=== PATIENT | male | born 1945 | race Caucasian/White ===

== ENCOUNTER 2018-11-18 10:11 | Inpatient (IN) | payer MEDICAID ==
[~2018-11-18] VITALS: Ht 172.7 cm; Wt 67.4 kg
[2018-11-18] VITALS (7 sets, daily range): BP systolic 107–155; BP diastolic 55–70; PULSE 72–87; RESP 18–19; Ht 172.7 cm; Wt 67.4 kg
[~2018-11-18 10:11] MED LIST: ACET500C5 PO; HYDR-3498 PO
[2018-11-18] MEDS ORDERED: AMLO-147 PO (11:27)
[2018-11-18] MEDS ORDERED: FLUT9.9S NASAL (11:28)
[2018-11-18] MEDS ORDERED: ASPI-817 PO (11:28)
[2018-11-18] MEDS ORDERED: CIPR500T4 PO (11:28)
[2018-11-18] MEDS ORDERED: METO25TA4 PO (11:28)
[2018-11-18] MEDS ORDERED: TERA5CAP3 PO (11:29)
[2018-11-18] MEDS ORDERED: HYDR12.58 PO (11:29)
[2018-11-18] MEDS ORDERED: ACET-141 PO (11:29)
[2018-11-18] MEDS ORDERED: MIRA50TA PO (11:30)
[2018-11-18] MEDS ORDERED: ESOM40CA PO (11:30)
[2018-11-18] MEDS ORDERED: LISI10TA2 PO (11:30)
[2018-11-18] MEDS ORDERED: ASPIRIN 81 MG TAB PO STA (11:42)
[2018-11-18] MEDS ORDERED: NITROGLYCERIN 2% 1 GM OINT PKT TD STA (11:42)
[2018-11-18] MEDS ORDERED: ONDANSETRON 4 MG INJ IV PRN (12:00)
[2018-11-18] MEDS ORDERED: ACETAMINOPHEN 325 MG TAB PO PRN (12:00)
[2018-11-18] MEDS ORDERED: NITROGLYCERIN (SL) 0.4 MG TAB SL PRN ×2 (12:00→15:00)
--- NOTE | 2018-11-18 13:47 | ERD ---
ER Documentation Chief Complaint Chief Complaint ABD PAIN, FEVER, SOB, WEAKNESS HPI Patient is a 72-year-old male with hypertension and prostate issues who presents with abdominal pain and chest pain. An Hebrew product tester fiberglass was used for the entire history and physical exam. The patient was brought in by ambulance. He complains of abdominal pain for the past 3 days. He also has chest pain and shortness of breath which has gotten worse. He gets short of breath with walking up stairs. He has nausea and pelvic pain. He has had fevers over the past 4-5 days per the . He has had frequency and pain with urination. Upon review of old medical records the patient one previous visit to the ER in 2015. He does have a primary doctor. ROS All systems reviewed and are negative except as per history of present illness. Medications Home Meds Reported Medications Mirabegron (Myrbetriq) 50 Mg Tab.er.24h, 25 MG PO DAILY, TAB 11/18/18 Lisinopril* (Lisinopril*) 10 Mg Tablet, 10 MG PO BID, #30 TAB 11/18/18 Esomeprazole Mag Trihydrate (Nexium) 40 Mg Capsule.dr, 40 MG PO DAILY, #30 CAP 11/18/18 Acetaminophen* (Acetaminophen*) 500 MG Extra Strength Tablet, 1000 MG PO Q6H PRN for PAIN AND OR ELEVATED TEMP, TAB 11/18/18 Terazosin Hcl* (Terazosin Hcl*) 5 Mg Capsule, 5 MG PO HS, CAP 11/18/18 Hydrochlorothiazide* (Hydrochlorothiazide*) 12.5 Mg Tablet, 12.5 MG PO DAILY, #3 0 TAB 11/18/18 Fluticasone Propionate (Flonase Allergy Relief) 9.9 Ml [place].susp, 1 SPRAY NASAL DAILY, #1 BOTTLE TO EACH NOSTRIL 11/18/18 Metoprolol Tartrate* (Lopressor*) 25 Mg Tablet, 25 MG PO BID, #60 TAB 11/18/18 Aspirin* (Aspirin* EC) 81 Mg Tablet.dr, 81 MG PO DAILY, TAB 11/18/18 Ciprofloxacin Hcl* (Ciprofloxacin Hcl*) 500 Mg Tablet, 500 MG PO BID, #14 TAB 11/18/18 Amlodipine Besylate* (Amlodipine Besylate*) 10 Mg Tablet, 10 MG PO DAILY, #30 TAB 11/18/18 Discontinued Scripts Hydrocodone Bit-Acetaminophen* ([place]*) 5-325 Mg Tab, 1 TAB PO DAILY PRN for PAIN, #5 TAB Prov:JOHANNANEAL CALZADA 08/21/15 Acetaminophen* (Tylophen*) 500 Mg Capsule, 500 MG PO Q6H PRN for PAIN, #30 TAB 0 Refills Prov:JOHANNANEAL ZHENG 08/21/15 Allergies Allergies: Coded Allergies: No Known Allergy (Unverified , 08/21/15) PMhx/Soc Medical and Surgical Hx: pt denies Surgical Hx History of Surgery: No Anesthesia Reaction: No Hx Neurological Disorder: No Hx Respiratory Disorders: No Hx Cardiac Disorders: Yes (HTN) Hx Psychiatric Problems: No Hx Miscellaneous Medical Probl: Yes (ENLARGED PROSTATE) Hx Alcohol Use: Yes (OOC) Hx Substance Use: No Hx Tobacco Use: No Smoking Status: Never smoker FmHx Family History: No diabetes Physical Exam Vitals Vital Signs Date Temp Pulse Resp B/P (MAP) Pulse Ox O2 O2 Flow FiO2 Time Delivery Rate 11/18/18 98.7 88 17 148/74 100 10:22 (98) Physical Exam Const: No acute distress Head: Atraumatic Eyes: Normal Conjunctiva ENT: Normal External Ears, Nose and Mouth. Neck: Full range of motion. No meningismus. Resp: Clear to auscultation bilaterally Cardio: Regular rate and rhythm, no murmurs Abd: Soft, fullness over the bladder with tenderness to palpation Skin: No petechiae or rashes Back: No midline or flank tenderness Ext: No cyanosis, or edema Neur: Awake and alert Psych: Normal Mood and Affect Result Diagram: 11/18/18 1025 11/18/18 1025 Results 24 hrs Laboratory Tests Test 11/18/18 10:25 11/18/18 10:50 11/18/18 11:10 White Blood Count 6.6 10^3/ul Red Blood Count 3.29 10^6/ul Hemoglobin 10.1 g/dl Hematocrit 31.3 % Mean Corpuscular Volume 95.1 fl Mean Corpuscular Hemoglobin 30.7 pg Mean Corpuscular 32.3 g/dl Hemoglobin Concent Red Cell Distribution Width 13.5 % Platelet Count 197 10^3/UL Mean Platelet Volume 11.0 fl Immature Granulocytes % 0.300 % Neutrophils % 74.1 % Lymphocytes % 14.8 % Monocytes % 10.4 % Eosinophils % 0.2 % Basophils % 0.2 % Nucleated Red Blood Cells % 0.0 /100WBC Immature Granulocytes # 0.020 10^3/ul Neutrophils # 4.9 10^3/ul Lymphocytes # 1.0 10^3/ul Monocytes # 0.7 10^3/ul Eosinophils # 0.0 10^3/ul Basophils # 0.0 10^3/ul Nucleated Red Blood Cells # 0.0 10^3/ul Prothrombin Time 14.7 Sec Prothrombin Time Ratio 1.1 INR International 1.14 Normalized Ratio Activated Partial Thromboplast 36.8 Sec Time Sodium Level 139 mmol/L Potassium Level 4.5 mmol/L Chloride Level 101 mmol/L Carbon Dioxide Level 27 mmol/L Anion Gap 11 Blood Urea Nitrogen 20 mg/dl Creatinine 0.93 mg/dl Est Glomerular Filtrat mL/min Rate mL/min Glucose Level 134 mg/dl Calcium Level 9.4 mg/dl Total Bilirubin 0.3 mg/dl Direct Bilirubin 0.00 mg/dl Indirect Bilirubin 0.3 mg/dl Aspartate Amino Transf (AST/SGOT) 23 IU/L Alanine 15 IU/L Aminotransferase (ALT/SGPT) Alkaline Phosphatase 103 IU/L Troponin I 0.037 ng/ml Total Protein 8.2 g/dl Albumin 4.3 g/dl Globulin 3.90 g/dl Albumin/Globulin Ratio 1.10 POC Venous Lactate 1.7 mmol/L Urine Color YELLOW Urine Clarity CLEAR Urine pH 6.0 Urine Specific [place] 1.013 Urine Ketones TRACE mg/dL Urine Nitrite NEGATIVE mg/dL Urine Bilirubin NEGATIVE mg/dL Urine Urobilinogen NEGATIVE mg/dL Urine Leukocyte Esterase NEGATIVE Darrell/ul Urine Microscopic RBC 14 /HPF Urine Microscopic WBC 0 /HPF Urine Hemoglobin 2+ mg/dL Urine Glucose NEGATIVE mg/dL Urine Total Protein NEGATIVE mg/dl Current Medications Medications Dose Sig/Neeru Start Time Status Last (Trade) Ordered Route PRN Stop Time Admin Dose Reason Admin Aspirin 162 mg ONCE STAT 11/18/18 DC 11/18/18 (Aspirin) PO 11:42 11/18/18 11:56 11:43 1 inch ONCE STAT 11/18/18 DC 11/18/18 Nitroglycerin TD 11:42 11/18/18 11:56 11:43 (Nitroglyceri n 2% Oint) Procedures/MDM EKG read by me: Rate/Rhythm: Regular rate and rhythm at a normal rate Intervals: Normal Impression: No evidence of ischemia or arrhythmia Chest x-ray read by radiology. Patient is a 72-year-old male who presents with chest pain, shortness of breath, and abdominal pain. I doubt sepsis at this time. I see no sign of infection. I am concerned for possible acute coronary syndrome given his chest pain and shortness of breath. I doubt pneumonia, pneumothorax, or pulmonary embolism. The patient will be admitted to the care of the panel team to a telemetry bed. Departure Diagnosis: Primary Impression: Chest pain Chest pain type: unspecified Qualified Codes: R07.9 - Chest pain, unspecified Condition: BECKY Weeks MD Nov 18, 2018 13:47
--- NOTE | 2018-11-18 14:31 | HP ---
Date/Time of Note Date/Time of Note DATE: 11/18/18 TIME: 14:31 Assessment/Plan VTE Prophylaxis Pharmacological prophylaxis: NA/contraindicated Pharm contraindication: other (Anemia) Lines/Catheters IV Catheter Type (from [facility]): Saline Lock Urinary Cath still in place: No Assessment/Plan Hospital Course 72-year-old male with comorbidities including hypertension, prostate hyperplasia, sciatica, and anemia who came to the emergency room with chief complaint of dyspnea on exertion that has been progressively getting worse and subjective fevers, who will be admitted to inpatient setting for further treatment and evaluation. 1. Dyspnea on exertion. -Etiology unclear. -Differentials include secondary to underlying anemia versus underlying CHF versus others. -Obtain 2D echocardiogram to evaluate left ventricular ejection fraction. -Obtain cardiology consult. -Obtain stool for OB to evaluate for any occult bleeding. -Obtain serial troponins to evaluate for any underlying ACS. 2. Cardiomegaly with pulmonary vascular congestion. -Possible underlying congestive heart failure. -Obtain 2D echocardiogram to evaluate left ventricular ejection fraction. -Cardiology consult. -Diuresis. 3. Reported dysuria and frequency. -Most probably secondary to underlying prostate hyperplasia. -Continue terazosin. -Add tamsulosin. -Obtain urine studies. -Obtain PSA. Less likely infectious process since the patient remains afebrile and there is no leukocytosis. 4. Essential hypertension. -Resume antihypertensives. 5. Normocytic normochromic anemia. -Etiology unclear. -Obtain stool for OB. -Obtain an iron panel. -Monitor H and H closely. Plan: The patient will be admitted to inpatient telemetry floor. The patient will be started on a low-cholesterol diet. The patient will be started on DVT prophylaxis with bilateral SCDs . The patient will remain a full code. Activities will be as tolerated. The rest of the patient's management will be based on the clinical course, inputs from consultants, and the results of diagnostic studies. Based on the patient's clinical presentation, he most probably requires at least 1 midnight's stay for further management and evaluation of his clinical present ation. The patient was seen in collaboration with Dr. Spivey. Result Diagram: 11/18/18 1025 11/18/18 1025 Results 24hrs Laboratory Tests Test 11/18/18 10:25 11/18/18 10:50 11/18/18 11:10 White Blood Count 6.6 Red Blood Count 3.29 L Hemoglobin 10.1 L Hematocrit 31.3 L Mean Corpuscular Volume 95.1 Mean Corpuscular Hemoglobin 30.7 Mean Corpuscular Hemoglobin Concent 32.3 Red Cell Distribution Width 13.5 Platelet Count 197 Mean Platelet Volume 11.0 H Immature Granulocytes % 0.300 Neutrophils % 74.1 Lymphocytes % 14.8 L Monocytes % 10.4 Eosinophils % 0.2 Basophils % 0.2 Nucleated Red Blood Cells % 0.0 Immature Granulocytes # 0.020 Neutrophils # 4.9 Lymphocytes # 1.0 Monocytes # 0.7 Eosinophils # 0.0 Basophils # 0.0 Nucleated Red Blood Cells # 0.0 Prothrombin Time 14.7 Prothrombin Time Ratio 1.1 INR International Normalized Ratio 1.14 Activated Partial Thromboplast Time 36.8 H Sodium Level 139 Potassium Level 4.5 Chloride Level 101 Carbon Dioxide Level 27 Anion Gap 11 Blood Urea Nitrogen 20 Creatinine 0.93 Est Glomerular Filtrat Rate mL/min Glucose Level 134 Hemoglobin A1c 5.8 Calcium Level 9.4 Total Bilirubin 0.3 Direct Bilirubin 0.00 Indirect Bilirubin 0.3 Aspartate Amino Transf (AST/SGOT) 23 Alanine Aminotransferase (ALT/SGPT) 15 Alkaline Phosphatase 103 Troponin I 0.037 B-Type Natriuretic Peptide 405 H Total Protein 8.2 H Albumin 4.3 Globulin 3.90 H Albumin/Globulin Ratio 1.10 Prostate Specific Antigen Pending POC Venous Lactate 1.7 Urine Color YELLOW Urine Clarity CLEAR Urine pH 6.0 Urine Specific [place] 1.013 Urine Ketones TRACE A Urine Nitrite NEGATIVE Urine Bilirubin NEGATIVE Urine Urobilinogen NEGATIVE Urine Leukocyte Esterase NEGATIVE Urine Microscopic RBC 14 H Urine Microscopic WBC 0 Urine Hemoglobin 2+ H Urine Glucose NEGATIVE Urine Total Protein NEGATIVE HPI/ROS Admit Date/Time Admit Date/Time Nov 18, 2018 at 11:47 Hx of Present Illness Reason for admission: Dyspnea on exertion, urinary frequency, urgency, pain in the inguinal area. Consultants 1. Karthik Lizarraga MD, Cardiology. This is a 72-year-old male with past medical history of hypertension, prostate hypertrophy, sciatica, and anemia who came to the emergency room with multiple complaints. The patient verbalized that he has been having progressive worsening of dyspnea on exertion. The patient also feels chest tightness/pain with dyspnea. The patient was complaining of nausea. He denied any vomiting or diaphoresis. He denied any dizziness. The patient also verbalized increased urinary frequency and urgency with pain in bilateral groins and subjective fevers. In the emergency room, the patient was afebrile. The patient's WBC was within normal limits. The patient was noticed to have normocytic, normochromic anemia. The patient's chest x-ray was showing cardiomegaly with pulmonary vascular congestion. The patient was treated with IV Zofran, nitroglycerin transdermal, and a single dose of aspirin in the emergency room. The patient also had a Galvez catheter inserted in the emergency room. The patient's urinalysis was showing 2+ hemoglobin and microscopic RBC of 14 with negative leukocyte esterase and negative nitrate. ROS Constitutional: fatigue Eyes: no complaints ENT: no complaints Respiratory: shortness of breath Cardiovascular: chest pain, palpitations Gastrointestinal: no complaints Genitourinary: dysuria, other (Frequency) Musculoskeletal: no complaints Skin: no complaints Neurologic: no complaints Endocrine: no complaints Lymphatic: no complaints Psychological: no complaints Immunologic: no complaints PMH/Family/Social Past Medical History 1. Hypertension. 2. Prostate hyperplasia. 3. Sciatica. 4. Anemia. Medications Current Medications Nitroglycerin (Nitroglycerin (Sl Tab) 0.4 Mg) 1 tab Q5M UP TO 3 DOSES PRN SL .CHEST PAIN; Start 11/18/18 at 12:00 Ondansetron HCl (Zofran Inj) 4 mg ER BRIDGE PRN IV NAUSEA/VOMITING; Start 11/18/18 at 12:00; Stop 11/19/18 at 11:59 Acetaminophen (Tylenol Tab) 650 mg ER BRIDGE PRN PO .MILD PAIN 1-3 OR TEMP; Start 11/18/18 at 12:00; Stop 11/19/18 at 11:59 Coded Allergies: No Known Allergy (Unverified , 08/21/15) Past Surgical History 1. Left thumb traumatic amputation. Past Surgical Hx: no surgical history Family History Significant Family History: other (Stroke) Social History Lives at home with family. Alcohol Use: none Smoking Status: Former smoker Drug Use: none Exam/Review of Systems Vital Signs Vitals Vital Signs Date Temp Pulse Resp B/P (MAP) Pulse Ox O2 O2 Flow FiO2 Time Delivery Rate 11/18/18 77 14:14 11/18/18 98.0 18 143/65 97 Nasal 14:03 (91) Cannula Exam Exam General: Adequately build 72 year-old male lying in bed in no apparent distress. HEENT: Normocephalic, atraumatic. Eyes: Anicteric sclerae, conjunctivae clear. ENT: Nasal septum midline, oral mucosa moist. Neck supple, JVD noticed. Respiratory: Bilaterally diminished breath sounds. No use of accessory muscles of respiration. Bibasilar rales. Cardiovascular: S1, S2 heard. Grade 3/6 systolic ejection murmur Abdomen: Soft, nontender, and nondistended. Bowel sounds positive in all 4 quadrants. Genitourinary: The patient has a Galvez catheter in place. Extremities: No cyanosis, no clubbing, no edema. Peripheral pulses palpable. Neurologic: Cranial nerves II through XII grossly intact. The patient is awake, alert, and oriented. Skin: Normal skin turgor. No skin rashes. Additional Comments CXR IMPRESSION: Mild cardiomegaly with pulmonary vascular congestion. 12 Lead EKG RBBB. BEBE ABBASI NP Nov 18, 2018 14:31
[2018-11-18] MEDS ORDERED: NACL 0.9% 3 ML SYG IV SCH (15:00)
[2018-11-18] MEDS: ACETAMINOPHEN 325 MG TAB PO PRN (16:04)
[2018-11-18] MEDS ORDERED: FUROSEMIDE 20 MG INJ IV ONE (16:30)
[2018-11-18] MEDS: FUROSEMIDE 20 MG INJ IV SCH (17:17)
--- NOTE | 2018-11-18 17:35 | NUR ---
Nurses notes: 172 Received a from lab regarding abnormal lab troponin 0.[address] Lizarraga's office and s/w Sarita and stated she'll page Dr Lizarraga. 1734 Dr Lizarraga called back and relayed troponin 0.489 and asked when's the next draw and stated ok to call him if it's abnormal and change the draw at [phone] to morning . Changed troponin draw at 0700.
--- NOTE | 2018-11-18 18:50 | RADRPT ---
Echocardiogram Report [id number] : 1945 ([id number] )Study Date: 11/18/2018 2:54:50 PM Gender: Dainaion #: [id number] Tech: [facility] Location: [facility]- Ref.Physician: BEBE ABBASI Height(Cm): BSA: Weight(Kg): Quality: AdequateAccount #: Procedures: Echocardiographic Report: Transthoracic echocardiogram with complete 2D, M-Mode, and doppler examination. Indications: Chest Pain. Measurements: 2D/M Mode Doppler Measurement Value Normal Range Measurement Value Normal Range LVIDd 2D 5.0 [ 4.2 - 5.8 ] cm CHRISTOPHER VTI 1.5 [ 2.0 - 4.0 ] cm2 LVIDs 2D 3.5 [ 2.5 - 4.0 ] cm AV Mean Severo 2.0 [ 70.0 - 90.0 ] cm/sec LVPWd 2D 0.8 [ 0.6 - 1.0 ] cm AV Mean PG 18.0 [ 2.0 - 4.0 ] mmHg IVSd 2D 1.2 [ 0.6 - 1.0 ] cm AV VTI 66.0 cm AoR Diam 2D 2.6 [ 2.6 - 3.4 ] cm LVOT Mean Severo 0.9 [ 60.0 - 80.0 ] cm/sec EDV 2D 120.0 [ 62.0 - 150.0 ] ml LVOT Mean PG 4.0 [ 1.0 - 3.0 ] mmHg ESV 2D 50.2 [ 21.0 - 61.0 ] ml LVOT Peak Severo 1.3 [ 70.0 - 110.0 ] cm/sec EF 2D 58.2 [ 52.0 - 72.0 ] percent LVOT Peak PG 7.0 [ 2.0 - 6.0 ] mmHg LA Dimen 2D 3.8 [ 3.0 - 4.0 ] cm LVOT VTI 30.9 [ 20.0 - 30.0 ] cm LVOT Diam 2.0 [ 2.3 - 2.9 ] cm MV E Peak Severo 0.8 [ 60.0 - 130.0 ] cm/sec MV A Peak Severo 1.0 [ 100.0 - 120.0 ] cm/sec MV E/A 0.8 [ 0.8 - 1.5 ] ratio MV Decel Time 201 [ 104 - 258 ] msec Lat E` Severo 0.1 [ 10.0 - 15.0 ] cm/sec Lateral E/E` 9.1 [ 1.0 - 2.0 ] ratio Med E` Severo 0.1 cm/sec MV E/A 0.8 [ 0.8 - 1.5 ] ratio TR Peak Severo 2.8 [ 100.0 - 280.0 ] cm/sec TR Peak PG 31.0 mmHg RVSP 34.0 [ 10.0 - 36.0 ] mmHg Findings: Left Ventricle: Normal left ventricular systolic function. Normal left ventricular cavity size. Sigmoid septum. Moderate left ventricular systolic dysfunction. Ejection fraction is visually estimated at 35-40 %. Tissue Doppler/Mitral Doppler indices are consistent with impaired relaxation (Stage I diastolic dysfunction). These segments of the LV are hypokinetic mid anterior segment, inferoseptum mid segment, apex and apical septum. Right Ventricle: Normal right ventricular size. Normal right ventricular systolic function. Left Atrium: The left atrium is normal in size. Right Atrium: The right atrium is normal in size. Mitral Valve: Mild mitral leaflet calcification. Mild mitral annular calcification. Mild mitral valve regurgitation. Aortic Valve: Mild to moderate aortic stenosis. Aortic valve Max velocity 2.77 m/sec. Max PG 2.01 mmHg. Mean PG 18.00 mmHg. Aortic valve area 1.41 cm2. Aortic cusps appear moderately calcified. Tricuspid Valve: Normal appearance of the tricuspid valve. Estimated peak PA systolic pressure 34 mmHg. There is mild tricuspid regurgitation. Pulmonic Valve: Pulmonic valve not well visualized. There is trace pulmonic regurgitation. Pericardium: Normal pericardium with no significant pericardial effusion. Aorta: Normal aortic root. IVC: Normal size and normal respiratory collapse consistent with normal right atrial pressure. Conclusions: Normal left ventricular systolic function. Normal left ventricular cavity size. Sigmoid septum. Moderate left ventricular systolic dysfunction. Ejection fraction is visually estimated at 35-40 %. Tissue Doppler/Mitral Doppler indices are consistent with impaired relaxation (Stage I diastolic dysfunction). These segments of the LV are hypokinetic mid anterior segment, inferoseptum mid segment, apex and apical septum. Mild mitral leaflet calcification. Mild mitral annular calcification. Mild mitral valve regurgitation. Mild to moderate aortic stenosis. Aortic valve Max velocity 2.77 m/sec. Max PG 2.01 mmHg. Mean PG 18.00 mmHg. Aortic valve area 1.41 cm2. Aortic cusps appear moderately calcified. Normal appearance of the tricuspid valve. Estimated peak PA systolic pressure 34 mmHg. There is mild tricuspid regurgitation. Pulmonic valve not well visualized. There is trace pulmonic regurgitation. Electronically Signed By: Karthik Lizarraga 2018-11-18 18:49:20 PST
--- NOTE | 2018-11-18 19:04 | CONS ---
DATE OF ADMISSION: 11/18/2018 DATE OF CONSULTATION: 11/18/2018 REASON FOR CONSULTATION: Dyspnea on exertion. REQUESTING PHYSICIAN: Marcello Moreno from the hospitalist service. HISTORY OF PRESENT ILLNESS: Mr. Lockhart is a 72-year-old male with a history of hypertension, BPH, anemia who presents with complaints of dyspnea on exertion. Per chart biopsy says chest pain too, but the patient denies any chest pain. The patient states that he has been having dyspnea on exertion for the past 6 months with walking across the room, slowly getting worse. Upon arrival in the emergency department, temperature 98.7, blood pressure 148/74, pulse 88, respiratory rate 17, sat 100%. The patient's labs revealed a white count 6.6, hemoglobin 10.1, platelet count 197. Sodium of 139, potassium 4.5, creatinine 0.9, BUN of 20. BNP of 405. TSH of 1.43. PSA of 361, INR 1.1. UA negative. The patient underwent a chest x-ray revealing mild cardiomegaly with pulmonary vascular congestion. The patient's electrocardiogram revealed a sinus rhythm, rate of 86 with incomplete right bundle branch block, septal Q's, lateral T-wave inversion. The patient subsequently admitted to the floor and since admit to the floor, denies chest pain. The patient has been started on beta-dana, GÓMEZ inhibitor, yet to receive calcium dana with elevated systolic blood pressures in the 150s most recently. PAST MEDICAL HISTORY: As above in HPI. MEDICATIONS CURRENTLY IN HOSPITAL: 1. Aspirin 81 mg daily. 2. Norvasc 10 mg daily. 3. Lisinopril 10 mg p.o. b.i.d. 4. Metoprolol 25 mg p.o. b.i.d. 5. Hytrin 5 mg at bedtime. 6. Flomax 0.4 mg p.o. b.i.d. 7. Celexa p.r.n. 8. Tylenol p.r.n. ALLERGIES: NO KNOWN DRUG ALLERGIES. SOCIAL HISTORY: Remote tobacco, quit x5 years. Social ETOH. No illicit drug use. FAMILY HISTORY: No sudden cardiac or early CAD. REVIEW OF SYSTEMS: As above in HPI. CONSTITUTIONAL: No fevers, chills. PULMONARY: Dyspnea on exertion. CARDIOVASCULAR: No current chest pain. GASTROINTESTINAL: No vomiting. GENITOURINARY: No hematuria. MUSCULOSKELETAL: Degenerative joint disease. PSYCHIATRIC: No documented psych history. NEUROLOGIC: No documented history of CVA. ENDOCRINE: No documented history of diabetes mellitus. PHYSICAL EXAMINATION: VITAL SIGNS: Temperature 98.1, blood pressure most recently 165/70, pulse 85, respirations 19, and sat 95%. GENERAL: The patient is alert, awake, in no acute distress. NECK: JVP approximately 8 to 9 cm of water. CHEST: Fair movement throughout with mild decreased breath sounds bilaterally. HEART: Regular rate and rhythm. Normal S1, S2, I/ systolic murmur. ABDOMEN: Positive bowel sounds, soft. EXTREMITIES: No significant pitting edema, 1+ pulses bilateral posterior tibial. LABORATORY DATA: Most recently from today, TSH of 1.43. IMAGING STUDIES: As above in HPI. No further imaging studies for my review at this time. ECG: As above in HPI. No further electrocardiograms for my review at this time. IMPRESSION: 1. Dyspnea on exertion with elevated BNP. Assess for congestive heart failure. 2. Congestive heart failure by chest x-ray. 3. Abnormal electrocardiogram, assess for acute coronary syndrome. 4. Elevated PSA, severely. 5. Anemia. 6. Benign prostatic hypertrophy. 7. Hypertension, uncontrolled. RECOMMENDATIONS: 1. At this time would maintain patient on telemetry monitoring to follow rhythm and rate control closely. 2. Would complete the patient's rule out for myocardial infarction to ensure this patient's constellation of symptoms are not the result of an acute coronary syndrome versus acute myocardial infarction. 3. Check a 2D echo for this patient's ejection fraction, wall motion and any major valve abnormalities. 4. Continue the patient's baseline antihypertensives with Norvasc, Zestril, metoprolol and follow up blood pressure after receiving all these. 5. Will give patient gentle Lasix diuresis, following strict I's and O's to grade diuresis closely. 6. Check a fasting lipid panel for general risk stratification and initiate lipid medication as necessary. 7. Continue the patient's aspirin prophylaxis against cardiovascular events. Thank you for allowing me to take part in the care of this patient. I will continue to follow very closely with you with recommendations to be made as the patient progresses through his inpatient hospital clinical course. Dictated By: NEFTALI JACKSON/ZAY Conf#: [id number] DID#: [id number] CC: MARCELLO MORENO [employer] WORK[employer] APPRENTICE;*EndCC* MTDD
--- NOTE | 2018-11-18 19:29 | CONS ---
Assessment/Plan Assessment/Plan Hospital Course (Demo Recall) 72-year-old male presented to the emergency room with abdominal pain and chest pain. He also was complaining of urinary frequency and urgency. He had a PSA done and that came back elevated 361. Therefore a urological consultation was requested Patient states that he has been having nocturia 5-6 times and has urinary urgency. His medical doctor DR Ambrocio had prescribed for him terazosin 5 mg daily and Myrbetriq. Patient has not been evaluated by a urologist before. On the exam the patient does have a hard and large prostate very suspicious for cancer. In addition his PSA was 361 which is very high. We will do CT scan of the abdomen and pelvis without contrast and a bone scan to check for metastasis. Consultation Date/Type/Reason Admit Date/Time Nov 18, 2018 at 11:47 Date of Consultation: Nov 18, 2018 Type of Consult Urology Reason for Consultation Elevated PSA Requesting Provider: UNA BREAUX MD Date/Time of Note DATE: 11/18/18 TIME: 19:20 Hx of Present Illness 72-year-old male presented to the emergency room with abdominal pain and chest pain. He also was complaining of urinary frequency and urgency. He had a PSA done and that came back elevated 361. Therefore a urological consultation was requested Patient states that he has been having nocturia 5-6 times and has urinary urgency. His medical doctor DR Angy Ambrocio had prescribed for him terazosin 5 mg daily and Myrbetriq. Patient has not been evaluated by a urologist before. Constitutional: febrile (As per his statement) Eyes: no complaints ENT: no complaints Respiratory: No wheezing Cardiovascular: chest pain Gastrointestinal: pain Genitourinary: dysuria, other (Urinary frequency and urgency and nocturia) Musculoskeletal: no complaints Skin: no complaints Neurologic: no complaints Endocrine: no complaints Psychological: no complaints Past Medical History Medical History: hypertension, other (Urinary frequency and urgency) Home Meds Reported Medications Mirabegron (Myrbetriq) 50 Mg Tab.er.24h, 25 MG PO DAILY, TAB 11/18/18 Lisinopril* (Lisinopril*) 10 Mg Tablet, 10 MG PO BID, #30 TAB 11/18/18 Esomeprazole Mag Trihydrate (Nexium) 40 Mg Capsule.dr, 40 MG PO DAILY, #30 CAP 11/18/18 Acetaminophen* (Acetaminophen*) 500 MG Extra Strength Tablet, 1000 MG PO Q6H PRN for PAIN AND OR ELEVATED TEMP, TAB 11/18/18 Terazosin Hcl* (Terazosin Hcl*) 5 Mg Capsule, 5 MG PO HS, CAP 11/18/18 Hydrochlorothiazide* (Hydrochlorothiazide*) 12.5 Mg Tablet, 12.5 MG PO DAILY, #30 TAB 11/18/18 Fluticasone Propionate (Flonase Allergy Relief) 9.9 Ml [place].susp, 1 SPRAY NASAL DAILY, #1 BOTTLE TO EACH NOSTRIL 11/18/18 Metoprolol Tartrate* (Lopressor*) 25 Mg Tablet, 25 MG PO BID, #60 TAB 11/18/18 Aspirin* (Aspirin* EC) 81 Mg Tablet.dr, 81 MG PO DAILY, TAB 11/18/18 Ciprofloxacin Hcl* (Ciprofloxacin Hcl*) 500 Mg Tablet, 500 MG PO BID, #14 TAB 11/18/18 Amlodipine Besylate* (Amlodipine Besylate*) 10 Mg Tablet, 10 MG PO DAILY, #30 TAB 11/18/18 Discontinued Scripts Hydrocodone Bit-Acetaminophen* ([place]*) 5-325 Mg Tab, 1 TAB PO DAILY PRN for PAIN, #5 TAB Prov:NEAL SPENCER PA-C 08/21/15 Acetaminophen* (Tylophen*) 500 Mg Capsule, 500 MG PO Q6H PRN for PAIN, #30 TAB 0 Refills Prov:NEAL SPENCER PA-C 08/21/15 Medications Current Medications Nitroglycerin (Nitroglycerin (Sl Tab) 0.4 Mg) 1 tab Q5M UP TO 3 DOSES PRN SL .CHEST PAIN; Start 11/18/18 at 12:00 IV Flush (NS 3 ml) 3 ml PER PROTOCOL IV ; Start 11/18/18 at 15:00 Aspirin (Aspirin) 81 mg DAILY PO ; Start 11/19/18 at 09:00 Nitroglycerin (Nitroglycerin (Sl Tab) 0.4 Mg) 1 tab Q5M PRN SL .CHEST PAIN; Start 11/18/18 at 15:00 Acetaminophen (Tylenol Tab) 650 mg Q6H PRN PO .PAIN 1-3 OR TEMP Last administered on 11/18/18at 16:04; Admin Dose 650 MG; Start 11/18/18 at 15:00 Amlodipine Besylate (Norvasc) 10 mg DAILY PO ; Start 11/19/18 at 09:00 Hydrochlorothiazide (Hydrochlorothiazide) 12.5 mg DAILY@0600 PO ; Start 11/19/18 at 06:00 Lisinopril (Zestril) 10 mg BID PO ; Start 11/18/18 at 21:00 Metoprolol Tartrate (Lopressor) 25 mg BID PO ; Start 11/18/18 at 21:00 Terazosin HCl (Hytrin) 5 mg HS PO ; Start 11/18/18 at 21:00 Influenza Virus Vaccine Quadrival (Fluzone) 0.5 ml ONCE ONCE IM* ; Start 11/19/18 at 09:00; Stop 11/19/18 at 09:01 Tamsulosin HCl (Flomax) 0.4 mg BID PO ; Start 11/18/18 at 21:00 Furosemide (Lasix) 20 mg BID DIURETICS IV Last administered on 11/18/18at 17:17; Admin Dose 20 MG; Start 11/18/18 at 18:00 Allergies: Coded Allergies: No Known Allergy (Unverified , 08/21/15) Past Surgical History Past Surgical Hx: no surgical history Social History Alcohol Use: none Smoking Status: Former smoker Drug Use: none Exam/Review of Systems Exam Vitals Vital Signs Date Temp Pulse Resp B/P (MAP) Pulse Ox O2 O2 Flow FiO2 Time Delivery Rate 11/18/18 82 16:28 11/18/18 98.1 19 155/70 95 15:53 (98) 11/18/18 Nasal 14:03 Cannula Constitutional: alert, oriented Psych: no complaints Head: normocephalic Eyes: nl conjunctiva ENMT: nl external ears & nose Neck: supple, non-tender Respiratory: normal air movement; No wheezing Cardiovascular: No jugular venous distention (JVD) Gastrointestinal: soft; No surgical scars Genitourinary - Male: nl penis, nl scrotum, other (Patient has a Galvez catheter that is draining clear urine. Rectal exam: Prostate large and hard very suspicious for prostate cancer) Musculoskeletal: nl extremities to inspection Extremities: No calf tenderness Neurological: nl mental status Skin: nl turgor Results Result Diagram: 11/18/18 1025 11/18/18 1025 Results 24hrs Laboratory Tests Test 11/18/18 10:25 11/18/18 10:50 11/18/18 11:10 11/18/18 13:58 White Blood Count 6.6 Red Blood Count 3.29 L Hemoglobin 10.1 L Hematocrit 31.3 L Mean Corpuscular Volume 95.1 Mean Corpuscular 30.7 Hemoglobin Mean Corpuscular 32.3 Hemoglobin Concent Red Cell Distribution 13.5 Width Platelet Count 197 Mean Platelet Volume 11.0 H Immature Granulocytes % 0.300 Neutrophils % 74.1 Lymphocytes % 14.8 L Monocytes % 10.4 Eosinophils % 0.2 Basophils % 0.2 Nucleated Red Blood 0.0 Cells % Immature Granulocytes # 0.020 Neutrophils # 4.9 Lymphocytes # 1.0 Monocytes # 0.7 Eosinophils # 0.0 Basophils # 0.0 Nucleated Red Blood 0.0 Cells # Prothrombin Time 14.7 Prothrombin Time Ratio 1.1 INR International 1.14 Normalized Ratio Activated 36.8 H Partial Thromboplast Time Sodium Level 139 Potassium Level 4.5 Chloride Level 101 Carbon Dioxide Level 27 Anion Gap 11 Blood Urea Nitrogen 20 Creatinine 0.93 Est Glomerular Filtrat Rate mL/min Glucose Level 134 Hemoglobin A1c 5.8 Calcium Level 9.4 Total Bilirubin 0.3 Direct Bilirubin 0.00 Indirect Bilirubin 0.3 Aspartate Amino 23 Transf (AST/SGOT) Alanine 15 Aminotransferase (ALT/SG PT) Alkaline Phosphatase 103 Troponin I 0.037 B-Type Natriuretic 405 H Peptide Total Protein 8.2 H Albumin 4.3 Globulin 3.90 H Albumin/Globulin Ratio 1.10 Prostate Specific 361.0 H Antigen POC Venous Lactate 1.7 Urine Color YELLOW Urine Clarity CLEAR Urine pH 6.0 Urine Specific [place] 1.013 Urine Ketones TRACE A Urine Nitrite NEGATIVE Urine Bilirubin NEGATIVE Urine Urobilinogen NEGATIVE Urine Leukocyte Esterase NEGATIVE Urine Microscopic RBC 14 H Urine Microscopic WBC 0 Urine Hemoglobin 2+ H Urine Glucose NEGATIVE Urine Total Protein NEGATIVE Lactic Acid Level 1.1 Thyroid Stimulating 1.430 Hormone (TSH) Test 11/18/18 16:05 Iron Level 18 L Total Iron Binding 243 Capacity Percent Iron Saturation 7 L Ferritin 235.0 Creatine Kinase 84 Creatine Kinase Index 4.8 Creatinine Kinase MB 4.00 H (Mass) Troponin I 0.489 *H Free Thyroxine 1.05 Medications Medication Current Medications Nitroglycerin (Nitroglycerin (Sl Tab) 0.4 Mg) 1 tab Q5M UP TO 3 DOSES PRN SL .CHEST PAIN; Start 2/8/19 at 12:00 IV Flush (NS 3 ml) 3 ml PER PROTOCOL IV ; Start 11/18/18 at 15:00 Aspirin (Aspirin) 81 mg DAILY PO ; Start 11/19/18 at 09:00 Nitroglycerin (Nitroglycerin (Sl Tab) 0.4 Mg) 1 tab Q5M PRN SL .CHEST PAIN; Start 11/18/18 at 15:00 Acetaminophen (Tylenol Tab) 650 mg Q6H PRN PO .PAIN 1-3 OR TEMP Last administered on 11/18/18at 16:04; Admin Dose 650 MG; Start 11/18/18 at 15:00 Amlodipine Besylate (Norvasc) 10 mg DAILY PO ; Start 11/19/18 at 09:00 Hydrochlorothiazide (Hydrochlorothiazide) 12.5 mg DAILY@0600 PO ; Start 11/19/18 at 06:00 Lisinopril (Zestril) 10 mg BID PO ; Start 11/18/18 at 21:00 Metoprolol Tartrate (Lopressor) 25 mg BID PO ; Start 11/18/18 at 21:00 Terazosin HCl (Hytrin) 5 mg HS PO ; Start 11/18/18 at 21:00 Influenza Virus Vaccine Quadrival (Fluzone) 0.5 ml ONCE ONCE IM* ; Start 11/19/18 at 09:00; Stop 11/19/18 at 09:01 Tamsulosin HCl (Flomax) 0.4 mg BID PO ; Start 11/18/18 at 21:00 Furosemide (Lasix) 20 mg BID DIURETICS IV Last administered on 11/18/18at 17:17; Admin Dose 20 MG; Start 11/18/18 at 18:00 WIL TEMPLETON MD Nov 18, 2018 19:29
[2018-11-18] MEDS: METOPROLOL 25 MG TAB PO SCH (21:50)
[2018-11-18] MEDS: TAMSULOSIN (SR) 0.4 MG CAP PO SCH (21:50)
[2018-11-18] MEDS: LISINOPRIL 10 MG TAB PO SCH (21:51)
[2018-11-18] MEDS: TERAZOSIN 5 MG CAP PO SCH (22:17)
[2018-11-19] VITALS (10 sets, daily range): BP systolic 103–123; BP diastolic 53–70; PULSE 67–83; RESP 18–20
--- NOTE | 2018-11-19 01:25 | NUR ---
Nursing Note: Notified Dr. Lizarraga that pt's 2200 troponin is 1.890. Previous troponin was 0.489. Pt denies chest pain or trouble breathing. VS stable. MD will evaluate 0700 troponin. No new orders at this time.
[2018-11-19] MEDS: HYDROCHLOROTHIAZIDE 12.5 MG CAP PO SCH (06:27)
[2018-11-19] MEDS: FUROSEMIDE 20 MG INJ IV SCH ×2 (06:27→18:49)
--- NOTE | 2018-11-19 07:00 | NUR ---
EOSS: Patient resting comfortably in stable condition. Pt a/o X4 and on room air. VS stable. Pt NPO except meds since midnight. Will endorser to oncoming RN.
[2018-11-19] MEDS: METOPROLOL 25 MG TAB PO SCH ×2 (08:39→21:30)
[2018-11-19] MEDS: AMLODIPINE 10 MG TAB PO SCH (08:39)
[2018-11-19] MEDS: TAMSULOSIN (SR) 0.4 MG CAP PO SCH ×2 (08:39→21:28)
[2018-11-19] MEDS: LISINOPRIL 10 MG TAB PO SCH ×2 (08:39→21:30)
[2018-11-19] MEDS: ASPIRIN 81 MG TAB PO SCH (08:39)
[2018-11-19] MEDS ORDERED: INFLUENZA VIRUS VACCINE 0.5 ML (DISPENSING) IM* ONE (09:00)
[2018-11-19] MEDS ORDERED: REGADENOSON 0.4 MG/5 ML SYG ONE (11:02)
--- NOTE | 2018-11-19 11:04 | PN ---
Date/Time of Note Date/Time of Note DATE: 11/19/18 TIME: 11:02 Assessment/Plan VTE Prophylaxis Risk score (from Nsg)>0 risk: 4 SCD applied (from Nsg): Yes Pharmacological prophylaxis: LMWH Lines/Catheters IV C[facility]ter Type [facility]from [facility] Saline Lock Urinary Cath still in place: Yes Reason Cath still needed: urinary retention Assessment/Plan Hospital Course SUBJECTIVE: Denies any chest pain. OBJECTIVE: Physical Exam General: Adequately build 72 year-old male lying in bed in no apparent distress. HEENT: Normocephalic, atraumatic. Eyes: Anicteric sclerae, conjunctivae clear. ENT: Nasal septum midline, oral mucosa moist. Neck supple, JVD noticed. Respiratory: Bilaterally diminished breath sounds. No use of accessory muscles of respiration. Bibasilar rales. Cardiovascular: S1, S2 heard. Grade 3/6 systolic ejection murmur Abdomen: Soft, nontender, and nondistended. Bowel sounds positive in all 4 quadrants. Genitourinary: The patient has a Galvez catheter in place. Extremities: No cyanosis, no clubbing, no edema. Peripheral pulses palpable. Neurologic: Cranial nerves II through XII grossly intact. The patient is awake, alert, and oriented. Skin: Normal skin turgor. No skin rashes. Labs & Vitals per chart ASSESSMENT & PLAN 72-year-old male with comorbidities including hypertension, prostate hyperplasia, sciatica, and anemia who came to the emergency room with chief complaint of dyspnea on exertion that has been progressively getting worse and subjective fevers, who was admitted to inpatient setting for further treatment and evaluation. The patient's second set of troponins were elevated. 1. NSTEMI. -Continue aspirin. -Start therapeutic anticoagulation. -Start statins. -Cardiology following. 2. Congestive heart failure exacerbation. Systolic dysfunction. Possible acute on chronic. -Ejection fraction 35-40%. -Continue diuresis. 3. Cardiomyopathy. -Ejection fraction of 35-40%. -Continue beta-blockers and GÓMEZ inhibitors. 3. Prostate hypertrophy. -Significantly elevated PSA levels. -Being followed by urology. -Pending CT scan of the abdomen and pelvis. -Continue terazosin and tamsulosin. 4. Essential hypertension. -Resume antihypertensives. 5. Normocytic normochromic anemia. -Etiology unclear. -Pending stool for OB. -Monitor H and H closely. 6. Prediabetes. -Hemoglobin A1c 5.8. -Monitor glycemic trends. 7. Mild to moderate aortic stenosis. -Aortic valve area 1.41 cm. -Being followed by cardiology 8. Fluids, electrolytes, and nutrition. -N.p.o. 9. DVT prophylaxis -To be started on therapeutic Lovenox. 10. Plan. -Started therapeutic Lovenox. -Continue cardiac monitoring. -Await stress test. -Await further cardiology recommendations. The patient was seen in collaboration with Dr. Spivey. Result Diagram: 11/19/18 0746 11/19/18 0746 Results 24hrs Laboratory Tests Test 11/18/18 11:10 11/18/18 13:58 11/18/18 16:05 11/18/18 22:44 Urine Color YELLOW Urine Clarity CLEAR Urine pH 6.0 Urine Specific [place] 1.013 Urine Ketones TRACE A Urine Nitrite NEGATIVE Urine Bilirubin NEGATIVE Urine Urobilinogen NEGATIVE Urine Leukocyte Esterase NEGATIVE Urine Microscopic RBC 14 H Urine Microscopic WBC 0 Urine Hemoglobin 2+ H Urine Glucose NEGATIVE Urine Total Protein NEGATIVE Lactic Acid Level 1.1 Thyroid Stimulating 1.430 Hormone (TSH) Iron Level 18 L Total Iron Binding 243 Capacity Percent Iron Saturation 7 L Ferritin 235.0 Creatine Kinase 84 108 Creatine Kinase Index 4.8 5.1 Creatinine Kinase MB 4.00 H 5.52 H (Mass) Troponin I 0.489 *H 1.890 *H Free Thyroxine 1.05 Test 11/19/18 07:46 White Blood Count 8.1 # Red Blood Count 3.33 L Hemoglobin 10.2 L Hematocrit 31.3 L Mean Corpuscular Volume 94.0 Mean Corpuscular 30.6 Hemoglobin Mean Corpuscular 32.6 Hemoglobin Concent Red Cell Distribution 13.6 Width Platelet Count 218 Mean Platelet Volume 11.1 H Immature Granulocytes % 0.400 Neutrophils % 72.0 Lymphocytes % 15.3 Monocytes % 12.0 H Eosinophils % 0.1 Basophils % 0.2 Nucleated Red Blood 0.0 Cells % Immature Granulocytes # 0.030 Neutrophils # 5.8 Lymphocytes # 1.2 Monocytes # 1.0 H Eosinophils # 0.0 Basophils # 0.0 Nucleated Red Blood 0.0 Cells # Sodium Level 141 Potassium Level 4.0 Chloride Level 101 Carbon Dioxide Level 29 Anion Gap 11 Blood Urea Nitrogen 27 H Creatinine 1.06 Est Glomerular Filtrat Rate mL/min Glucose Level 131 Calcium Level 9.1 Phosphorus Level 4.8 Magnesium Level 2.1 Total Bilirubin 0.1 L Direct Bilirubin 0.00 Indirect Bilirubin 0.1 Aspartate Amino 44 # Transf (AST/SGOT) Alanine 25 Aminotransferase (ALT/SG PT) Alkaline Phosphatase 105 Creatine Kinase 100 Creatine Kinase Index 3.4 Creatinine Kinase MB 3.35 H (Mass) Troponin I 1.870 *H Total Protein 8.0 Albumin 4.2 Globulin 3.80 H Albumin/Globulin Ratio 1.10 Triglycerides Level 109 Cholesterol Level 180 LDL Cholesterol, 115 Calculated HDL Cholesterol 43 Cholesterol/HDL Ratio 4.1 Exam/Review of Systems Exam Vitals Vital Signs Date Temp Pulse Resp B/P (MAP) Pulse Ox O2 O2 Flow FiO2 Time Delivery Rate 11/19/18 68 08:01 11/19/18 98.4 18 123/62 95 07:19 (82) 11/19/18 Nasal 03:43 Cannula Intake and Output 11/18/18 11/18/18 11/19/18 1515:00 23:00 07:00 IntakeIntake Total 360 ml 500 ml OutputOutput Total 800 ml 1000 ml 1300 ml BalanceBalance -800 ml -640 ml -800 ml Results Results 24hrs Laboratory Tests Test 11/18/18 11:10 11/18/18 13:58 11/18/18 16:05 11/18/18 22:44 Urine Color YELLOW Urine Clarity CLEAR Urine pH 6.0 Urine Specific [place] 1.013 Urine Ketones TRACE A Urine Nitrite NEGATIVE Urine Bilirubin NEGATIVE Urine Urobilinogen NEGATIVE Urine Leukocyte Esterase NEGATIVE Urine Microscopic RBC 14 H Urine Microscopic WBC 0 Urine Hemoglobin 2+ H Urine Glucose NEGATIVE Urine Total Protein NEGATIVE Lactic Acid Level 1.1 Thyroid Stimulating 1.430 Hormone (TSH) Iron Level 18 L Total Iron Binding 243 Capacity Percent Iron Saturation 7 L Ferritin 235.0 Creatine Kinase 84 108 Creatine Kinase Index 4.8 5.1 Creatinine Kinase MB 4.00 H 5.52 H (Mass) Troponin I 0.489 *H 1.890 *H Free Thyroxine 1.05 Test 11/19/18 07:46 White Blood Count 8.1 # Red Blood Count 3.33 L Hemoglobin 10.2 L Hematocrit 31.3 L Mean Corpuscular Volume 94.0 Mean Corpuscular 30.6 Hemoglobin Mean Corpuscular 32.6 Hemoglobin Concent Red Cell Distribution 13.6 Width Platelet Count 218 Mean Platelet Volume 11.1 H Immature Granulocytes % 0.400 Neutrophils % 72.0 Lymphocytes % 15.3 Monocytes % 12.0 H Eosinophils % 0.1 Basophils % 0.2 Nucleated Red Blood 0.0 Cells % Immature Granulocytes # 0.030 Neutrophils # 5.8 Lymphocytes # 1.2 Monocytes # 1.0 H Eosinophils # 0.0 Basophils # 0.0 Nucleated Red Blood 0.0 Cells # Sodium Level 141 Potassium Level 4.0 Chloride Level 101 Carbon Dioxide Level 29 Anion Gap 11 Blood Urea Nitrogen 27 H Creatinine 1.06 Est Glomerular Filtrat Rate mL/min Glucose Level 131 Calcium Level 9.1 Phosphorus Level 4.8 Magnesium Level 2.1 Total Bilirubin 0.1 L Direct Bilirubin 0.00 Indirect Bilirubin 0.1 Aspartate Amino 44 # Transf (AST/SGOT) Alanine 25 Aminotransferase (ALT/SG PT) Alkaline Phosphatase 105 Creatine Kinase 100 Creatine Kinase Index 3.4 Creatinine Kinase MB 3.35 H (Mass) Troponin I 1.870 *H Total Protein 8.0 Albumin 4.2 Globulin 3.80 H Albumin/Globulin Ratio 1.10 Triglycerides Level 109 Cholesterol Level 180 LDL Cholesterol, 115 Calculated HDL Cholesterol 43 Cholesterol/HDL Ratio 4.1 Medications Medication Current Medications Nitroglycerin (Nitroglycerin (Sl Tab) 0.4 Mg) 1 tab Q5M UP TO 3 DOSES PRN SL .CHEST PAIN; Start 11/18/18 at 12:00 IV Flush (NS 3 ml) 3 ml PER PROTOCOL IV ; Start 11/18/18 at 15:00 Aspirin (Aspirin) 81 mg DAILY PO Last administered on 11/19/18at 08:39; Admin Dose 81 MG; Start 11/19/18 at 09:00 Nitroglycerin (Nitroglycerin (Sl Tab) 0.4 Mg) 1 tab Q5M PRN SL .CHEST PAIN; Start 11/18/18 at 15:00 Acetaminophen (Tylenol Tab) 650 mg Q6H PRN PO .PAIN 1-3 OR TEMP Last administered on 11/18/18at 16:04; Admin Dose 650 MG; Start 11/18/18 at 15:00 Amlodipine Besylate (Norvasc) 10 mg DAILY PO Last administered on 11/19/18at 08 :39; Admin Dose 10 MG; Start 11/19/18 at 09:00 Hydrochlorothiazide (Hydrochlorothiazide) 12.5 mg DAILY@0600 PO Last administered on 11/19/18 06:27; Admin Dose 12.5 MG; Start 11/19/18 at 06:00 Lisinopril (Zestril) 10 mg BID PO Last administered on 11/19/18 08:39; Admin Dose 10 MG; Start 11/18/18 at 21:00 Metoprolol Tartrate (Lopressor) 25 mg BID PO Last administered on 11/19/18 08:39; Admin Dose 25 MG; Start 11/18/18 at 21:00 Terazosin HCl (Hytrin) 5 mg HS PO Last administered on 11/18/18 22:17; Admin Dose 5 MG; Start 11/18/18 at 21:00 Tamsulosin HCl (Flomax) 0.4 mg BID PO Last administered on 11/19/18 08:39; Admin Dose 0.4 MG; Start 11/18/18 at 21:00 Furosemide (Lasix) 20 mg BID DIURETICS IV Last administered on 11/19/18 06:27; Admin Dose 20 MG; Start 11/18/18 at 18:00 Enoxaparin Sodium (Lovenox) 65 mg Q12 SC ; Start 11/19/18 at 11:00 BEBE ABBASI NP Nov 19, 2018 11:04
--- NOTE | 2018-11-19 12:09 | CONS ---
Assessment/Plan Assessment/Plan Hospital Course (Demo Recall) IMPRESSION: 1. Dyspnea on exertion with elevated BNP. Assess for congestive heart failure. 2. Congestive heart failure-systolic acute on chronic LVEFn 35-40 by echo 3. Abnormal electrocardiogram, assess for acute coronary syndrome. 4. Elevated PSA, severely. 5. Anemia. 6. Benign prostatic hypertrophy. 7. Hypertension-under improved control 8. Posittive troponin-peaked and now don=wntrending Recc: -Tele -Continue asa/statin -Contineu HCTZ -Contnue lasix diuresis -Contnue ACEI/BB -Lexiscan stres test today to asses significance of poistive troponin and need for LHC -trend cardiac enzymes Consultation Date/Type/Reason Admit Date/Time Nov 18, 2018 at 11:47 Initial Consult Date 11/18/18 Type of Consult Cardiology Reason for Consultation sob/positive troponin Requesting Provider: UNA BREAUX MD Date/Time of Note DATE: 11/19/18 TIME: 12:00 Exam/Review of Systems Vital Signs Vitals Vital Signs Date Temp Pulse Resp B/P (MAP) Pulse Ox O2 O2 Flow FiO2 Time Delivery Rate 11/19/18 68 08:01 11/19/18 98.4 18 123/62 95 07:19 (82) 11/19/18 Nasal 03:43 Cannula Intake and Output 11/18/18 11/18/18 11/19/18 1515:00 23:00 07:00 IntakeIntake Total 360 ml 500 ml OutputOutput Total 800 ml 1000 ml 1300 ml BalanceBalance -800 ml -640 ml -800 ml Exam Exam Review of Systems: CONSTITUTIONAL: No fevers, chills. PULMONARY: No sob CARDIOVASCULAR: No chest pain/palpitations GASTROINTESTINAL: No nausea/vomiting. GENITOURINARY: No hematuria/dysuria. MUSCULOSKELETAL: No myagias/arthalgias. PSYCHIATRIC: The patient denies depression. NEUROLOGIC: No weakness Constitutional: alert, oriented Psych: no complaints Head: normocephalic ENMT: mucosa pink and moist Neck: supple, jvd (9 cm water) Respiratory: diminished breath sounds (at bases/B) Cardiovascular: regular rate and rhythm Gastrointestinal: soft, non-tender Musculoskeletal: muscle tone (normal) Extremities: edema (None) Labs Result Diagram: 11/19/1846 2/9/19 0746 Results 24hrs Laboratory Tests Test 11/18/18 13:58 11/18/18 16:05 11/18/18 22:44 11/19/18 07:46 Lactic Acid Level 1.1 Thyroid Stimulating 1.430 Hormone (TSH) Iron Level 18 L Total Iron Binding 243 Capacity Percent Iron Saturation 7 L Ferritin 235.0 Creatine Kinase 84 108 100 Creatine Kinase Index 4.8 5.1 3.4 Creatinine Kinase MB 4.00 H 5.52 H 3.35 H (Mass) Troponin I 0.489 *H 1.890 *H 1.870 *H Free Thyroxine 1.05 White Blood Count 8.1 # Red Blood Count 3.33 L Hemoglobin 10.2 L Hematocrit 31.3 L Mean Corpuscular Volume 94.0 Mean Corpuscular 30.6 Hemoglobin Mean Corpuscular 32.6 Hemoglobin Concent Red Cell Distribution 13.6 Width Platelet Count 218 Mean Platelet Volume 11.1 H Immature Granulocytes % 0.400 Neutrophils % 72.0 Lymphocytes % 15.3 Monocytes % 12.0 H Eosinophils % 0.1 Basophils % 0.2 Nucleated Red Blood 0.0 Cells % Immature Granulocytes # 0.030 Neutrophils # 5.8 Lymphocytes # 1.2 Monocytes # 1.0 H Eosinophils # 0.0 Basophils # 0.0 Nucleated Red Blood 0.0 Cells # Sodium Level 141 Potassium Level 4.0 Chloride Level 101 Carbon Dioxide Level 29 Anion Gap 11 Blood Urea Nitrogen 27 H Creatinine 1.06 Est Glomerular Filtrat Rate mL/min Glucose Level 131 Calcium Level 9.1 Phosphorus Level 4.8 Magnesium Level 2.1 Total Bilirubin 0.1 L Direct Bilirubin 0.00 Indirect Bilirubin 0.1 Aspartate Amino 44 # Transf (AST/SGOT) Alanine 25 Aminotransferase (ALT/SG PT) Alkaline Phosphatase 105 Total Protein 8.0 Albumin 4.2 Globulin 3.80 H Albumin/Globulin Ratio 1.10 Triglycerides Level 109 Cholesterol Level 180 LDL Cholesterol, 115 Calculated HDL Cholesterol 43 Cholesterol/HDL Ratio 4.1 Medications Medications Current Medications IV Flush (NS 3 ml) 3 ml PER PROTOCOL IV ; Start 11/18/18 at 15:00 Aspirin (Aspirin) 81 mg DAILY PO Last administered on 11/19/18at 08:39; Admin Dose 81 MG; Start 11/19/18 at 09:00 Nitroglycerin (Nitroglycerin (Sl Tab) 0.4 Mg) 1 tab Q5M PRN SL .CHEST PAIN; Start 11/18/18 at 15:00 Acetaminophen (Tylenol Tab) 650 mg Q6H PRN PO .PAIN 1-3 OR TEMP Last administ ered on 11/18/18 16:04; Admin Dose 650 MG; Start 11/18/18 at 15:00 Amlodipine Besylate (Norvasc) 10 mg DAILY PO Last administered on 11/19/18 08:39; Admin Dose 10 MG; Start 11/19/18 at 09:00 Hydrochlorothiazide (Hydrochlorothiazide) 12.5 mg DAILY@0600 PO Last administered on 11/19/18 06:27; Admin Dose 12.5 MG; Start 11/19/18 at 06:00 Lisinopril (Zestril) 10 mg BID PO Last administered on 11/19/18 08:39; Admin Dose 10 MG; Start 11/18/18 at 21:00 Metoprolol Tartrate (Lopressor) 25 mg BID PO Last administered on 11/19/18 08:39; Admin Dose 25 MG; Start 11/18/18 at 21:00 Terazosin HCl (Hytrin) 5 mg HS PO Last administered on 11/18/18 22:17; Admin Dose 5 MG; Start 11/18/18 at 21:00 Tamsulosin HCl (Flomax) 0.4 mg BID PO Last administered on 11/19/18 08:39; Admin Dose 0.4 MG; Start 11/18/18 at 21:00 Furosemide (Lasix) 20 mg BID DIURETICS IV Last administered on 11/19/18 06:27; Admin Dose 20 MG; Start 11/18/18 at 18:00 Enoxaparin Sodium (Lovenox) 65 mg Q12 SC ; Start 11/19/18 at 11:00 Atorvastatin Calcium (Lipitor) 40 mg HS PO ; Start 11/19/18 at 21:00 NEFTALI LYNN Nov 19, 2018 12:09
[2018-11-19] MEDS: ENOXAPARIN 80 MG/0.8 ML SYG SC SCH ×2 (13:30→21:32)
--- NOTE | 2018-11-19 13:31 | CONS ---
Consult Date/Type/Reason Admit Date/Time Nov 18, 2018 at 11:47 Initial Consult Date 11/18/18 Type of Consultation: Urology Reason for Consultation Elevated PSA, hard prostate. Requesting Provider: UNA BREAUX MD Date/Time of Note DATE: 11/19/18 TIME: 13:24 Subjective The patient appears to be comfortable. He still has pelvic pain. Objective Vitals Vital Signs Date Temp Pulse Resp B/P (MAP) Pulse Ox O2 O2 Flow FiO2 Time Delivery Rate 11/19/18 83 12:01 11/19/18 98.4 18 123/62 95 07:19 (82) 11/19/18 Nasal 03:43 Cannula Intake and Output 11/18/18 11/18/18 11/19/18 1515:00 23:00 07:00 IntakeIntake Total 360 ml 500 ml OutputOutput Total 800 ml 1000 ml 1300 ml BalanceBalance -800 ml -640 ml -800 ml Exam The abdomen is soft, Galvez catheter is draining clear urine. Results/Medications Result Diagram: 11/19/18 0746 11/19/18 0746 Results 24 hrs Laboratory Tests Test 11/18/18 13:58 11/18/18 16:05 11/18/18 22:44 11/19/18 07:46 Lactic Acid Level 1.1 Thyroid Stimulating 1.430 Hormone (TSH) Iron Level 18 L Total Iron Binding 243 Capacity Percent Iron Saturation 7 L Ferritin 235.0 Creatine Kinase 84 108 100 Creatine Kinase Index 4.8 5.1 3.4 Creatinine Kinase MB 4.00 H 5.52 H 3.35 H (Mass) Troponin I 0.489 *H 1.890 *H 1.870 *H Free Thyroxine 1.05 White Blood Count 8.1 # Red Blood Count 3.33 L Hemoglobin 10.2 L Hematocrit 31.3 L Mean Corpuscular Volume 94.0 Mean Corpuscular 30.6 Hemoglobin Mean Corpuscular 32.6 Hemoglobin Concent Red Cell Distribution 13.6 Width Platelet Count 218 Mean Platelet Volume 11.1 H Immature Granulocytes % 0.400 Neutrophils % 72.0 Lymphocytes % 15.3 Monocytes % 12.0 H Eosinophils % 0.1 Basophils % 0.2 Nucleated Red Blood 0.0 Cells % Immature Granulocytes # 0.030 Neutrophils # 5.8 Lymphocytes # 1.2 Monocytes # 1.0 H Eosinophils # 0.0 Basophils # 0.0 Nucleated Red Blood 0.0 Cells # Sodium Level 141 Potassium Level 4.0 Chloride Level 101 Carbon Dioxide Level 29 Anion Gap 11 Blood Urea Nitrogen 27 H Creatinine 1.06 Est Glomerular Filtrat Rate mL/min Glucose Level 131 Calcium Level 9.1 Phosphorus Level 4.8 Magnesium Level 2.1 Total Bilirubin 0.1 L Direct Bilirubin 0.00 Indirect Bilirubin 0.1 Aspartate Amino 44 # Transf (AST/SGOT) Alanine 25 Aminotransferase (ALT/SG PT) Alkaline Phosphatase 105 Total Protein 8.0 Albumin 4.2 Globulin 3.80 H Albumin/Globulin Ratio 1.10 Triglycerides Level 109 Cholesterol Level 180 LDL Cholesterol, 115 Calculated HDL Cholesterol 43 Cholesterol/HDL Ratio 4.1 Home Meds Reported Medications Mirabegron (Myrbetriq) 50 Mg Tab.er.24h, 25 MG PO DAILY, TAB 11/18/18 Lisinopril* (Lisinopril*) 10 Mg Tablet, 10 MG PO BID, #30 TAB 11/18/18 Esomeprazole Mag Trihydrate (Nexium) 40 Mg Capsule.dr, 40 MG PO DAILY, #30 CAP 11/18/18 Acetaminophen* (Acetaminophen*) 500 MG Extra Strength Tablet, 1000 MG PO Q6H PRN for PAIN AND OR ELEVATED TEMP, TAB 11/18/18 Terazosin Hcl* (Terazosin Hcl*) 5 Mg Capsule, 5 MG PO HS, CAP 11/18/18 Hydrochlorothiazide* (Hydrochlorothiazide*) 12.5 Mg Tablet, 12.5 MG PO DAILY, #30 TAB 11/18/18 Fluticasone Propionate (Flonase Allergy Relief) 9.9 Ml [place].susp, 1 SPRAY NASAL DAILY, #1 BOTTLE TO EACH NOSTRIL 11/18/18 Metoprolol Tartrate* (Lopressor*) 25 Mg Tablet, 25 MG PO BID, #60 TAB 11/18/18 Aspirin* (Aspirin* EC) 81 Mg Tablet.dr, 81 MG PO DAILY, TAB 11/18/18 Ciprofloxacin Hcl* (Ciprofloxacin Hcl*) 500 Mg Tablet, 500 MG PO BID, #14 TAB 11/18/18 Amlodipine Besylate* (Amlodipine Besylate*) 10 Mg Tablet, 10 MG PO DAILY, #30 TAB 11/18/18 Discontinued Scripts Hydrocodone Bit-Acetaminophen* ([place]*) 5-325 Mg Tab, 1 TAB PO DAILY PRN for PAIN, #5 TAB Prov:JOHANNANEAL PA-C 08/21/15 Acetaminophen* (Tylophen*) 500 Mg Capsule, 500 MG PO Q6H PRN for PAIN, #30 TAB 0 Refills Prov:JOHANNANEAL CALZADA 08/21/15 Medications Current Medications IV Flush (NS 3 ml) 3 ml PER PROTOCOL IV ; Start 11/18/18 at 15:00 Aspirin (Aspirin) 81 mg DAILY PO Last administered on 11/19/18 08:39; Admin Dose 81 MG; Start 11/19/18 at 09:00 Nitroglycerin (Nitroglycerin (Sl Tab) 0.4 Mg) 1 tab Q5M PRN SL .CHEST PAIN; Start 11/18/18 at 15:00 Acetaminophen (Tylenol Tab) 650 mg Q6H PRN PO .PAIN 1-3 OR TEMP Last administered on 11/18/18 16:04; Admin Dose 650 MG; Start 11/18/18 at 15:00 Amlodipine Besylate (Norvasc) 10 mg DAILY PO Last administered on 11/19/18 08:39; Admin Dose 10 MG; Start 11/19/18 at 09:00 Hydrochlorothiazide (Hydrochlorothiazide) 12.5 mg DAILY@0600 PO Last administered on 11/19/18 06:27; Admin Dose 12.5 MG; Start 11/19/18 at 06:00 Lisinopril (Zestril) 10 mg BID PO Last administered on 11/19/18 08:39; Admin Dose 10 MG; Start 11/18/18 at 21:00 Metoprolol Tartrate (Lopressor) 25 mg BID PO Last administered on 11/19/18 08:39; Admin Dose 25 MG; Start 11/18/18 at 21:00 Terazosin HCl (Hytrin) 5 mg HS PO Last administered on 11/18/18 22:17; Admin Dose 5 MG; Start 11/18/18 at 21:00 Tamsulosin HCl (Flomax) 0.4 mg BID PO Last administered on 11/19/18 08:39; Admin Dose 0.4 MG; Start 11/18/18 at 21:00 Furosemide (Lasix) 20 mg BID DIURETICS IV Last administered on 11/19/18 06:27; Admin Dose 20 MG; Start 11/18/18 at 18:00 Enoxaparin Sodium (Lovenox) 65 mg Q12 SC ; Start 11/19/18 at 11:00 Atorvastatin Calcium (Lipitor) 40 mg HS PO ; Start 11/19/18 at 21:00 Assessment/Plan Hospital Course (Demo Recall) 72-year-old male presented to the emergency room with abdominal pain and chest pain. He also was complaining of urinary frequency and urgency. He had a PSA done and that came back elevated 361. Therefore a urological consultation was requested Patient states that he has been having nocturia 5-6 times and has urinary urgency. His medical doctor DR Ambrocio had prescribed for him terazosin 5 mg daily and Myrbetriq. Patient has not been evaluated by a urologist before. On the exam the patient does have a hard and large prostate very suspicious for cancer. In addition his PSA was 361 which is very high. CT scan of the abdomen and pelvis did show lytic lesion in the ischial tuberosity on the left side also in the sacrum and he has osteoblastic lesions in the right side of the ischial tuberosity and also he does have pelvic adenopathy. This patient most likely does have metastatic prostate cancer. He will need to have prostate biopsy for confirmation of his diagnosis. And then he should be placed on Lupron Depot and bicalutamide. We will start him on bicalutamide here. He should follow-up with [facility]. WIL TEMPLETON MD Nov 19, 2018 13:31
[2018-11-19] MEDS: BICALUTAMIDE 50 MG TAB PO SCH (16:01)
--- NOTE | 2018-11-19 16:01 | NUR ---
WITNESSED BELEN HANLEY RN TO ADMINISTER INITIAL DOSE OF CASODEX 50 MG FOR TREATMENT OF PROSTATE CA.PER AND PATIENT THEY WERE TOLD BY MD DR YOKASTA MAURICIO FOR HIS PROSTATE AND HE AGREED TO TAKE IT.PATIENT WAS PROVIDED BY RN READING ABOUT CASODEX DRUG INFO AND SIDE EFFECTS IN [place] AND [place]. PATIENT WAS INSTRUCTED ( WITH RN INTERPRETING IN [place]) TO TAKE THE PILL IN THE A SMALL CUP,NOT TO HOLD THE PILL WITH BARE HANDS AND WHEN USING THE BATHROOM TO DOUBLE FLUSH THE TOILET AND HANDWASHING.PT HAD VERBALIZE UNDERSTANDING.
--- NOTE | 2018-11-19 16:53 | CARRPT ---
DATE OF PROCEDURE: 11/19/2018 LEXISCAN CARDIOLITE STRESS TEST REASON FOR CONSULTATION: Positive troponin, shortness of breath, assess for ongoing cardiac ischemia . BASELINE VITAL SIGNS AND ELECTROCARDIOGRAM: Pulse 81, blood pressure is 124/62. Electrocardiogram r eveals normal sinus rhythm at 71, normal axis, normal intervals with inferior T-wave inversion, later al biphasic T-wave abnormalities. PROCEDURE: The patient underwent standard Lexiscan infusion protocol over 10 seconds followed by rad iotracer. The patient's test was stopped due to completion of protocol. Maximal achieved blood pres sure in the test 120/62. Maximum heart rate during the test 83. ELECTROCARDIOGRAM FINDINGS: The patient failed develop any new Lexiscan-induced ST or T-wave changes from baseline abnormalities with documented PVCs. SYMPTOMS: The patient has no complaints of chest pain or shortness of breath during stress test. IMPRESSION: 1. No Lexiscan-induced ST or T-wave changes from baseline abnormalities or diagnostic cardiac ischem ia. 2. No complaints of chest pain or shortness of breath during stress testing. 3. No documented premature ventricular contractions during stress testing. 4. Report of nuclear images to follow in separate dictation. Dictated By: NEFTALI JACKSON/ZAY Conf#: [id number] DID#: [id number] CC: UNA BREAUX MD; ____ ____;*EndCC*
[2018-11-19] MEDS: ATORVASTATIN 40 MG TAB PO SCH (21:28)
[2018-11-19] MEDS: TERAZOSIN 5 MG CAP PO SCH (21:29)
[2018-11-20] VITALS (12 sets, daily range): BP systolic 97–125; BP diastolic 53–60; PULSE 65–83; RESP 18–20
--- NOTE | 2018-11-20 02:00 | NUR ---
PT F/C URINE COLOR PINK TO RED INFORM MD PARRY BOLUS 250 ML GIVEN PT VITAL SIGN STABLE NO C/O PAIN PT RESTING WELL PT AT THE BED SIDE
[2018-11-20] MEDS ORDERED: SOD CHLORIDE 0.9% 250 ML IV ONE (02:30)
[2018-11-20] MEDS: FUROSEMIDE 20 MG INJ IV SCH ×2 (06:33→18:14)
[2018-11-20] MEDS: HYDROCHLOROTHIAZIDE 12.5 MG CAP PO SCH (06:34)
[2018-11-20] MEDS: AMLODIPINE 10 MG TAB PO SCH (08:07)
[2018-11-20] MEDS: METOPROLOL 25 MG TAB PO SCH ×2 (08:07→20:37)
[2018-11-20] MEDS: ASPIRIN 81 MG TAB PO SCH (08:07)
[2018-11-20] MEDS: LISINOPRIL 10 MG TAB PO SCH ×2 (08:07→20:37)
[2018-11-20] MEDS: TAMSULOSIN (SR) 0.4 MG CAP PO SCH ×2 (08:07→20:31)
[2018-11-20] MEDS: BICALUTAMIDE 50 MG TAB PO SCH (08:11)
--- NOTE | 2018-11-20 09:55 | PN ---
Date/Time of Note Date/Time of Note DATE: 11/20/18 TIME: 09:49 Assessment/Plan VTE Prophylaxis Risk score (from Ns)>0 risk: 3 SCD applied (from Nsg): Yes Pharmacological prophylaxis: LMWH Lines/Catheters IV Catheter Type (from [facility]): Saline Lock Urinary Cath still in place: Yes Reason Cath still needed: urinary retention Assessment/Plan Hospital Course SUBJECTIVE: Denies any chest pain. OBJECTIVE: Physical Exam General: Adequately build 72 year-old male lying in bed in no apparent distress. HEENT: Normocephalic, atraumatic. Eyes: Anicteric sclerae, conjunctivae clear. ENT: Nasal septum midline, oral mucosa moist. Neck supple, JVD noticed. Respiratory: Bilaterally diminished breath sounds. No use of accessory muscles of respiration. Bibasilar rales. Cardiovascular: S1, S2 heard. Grade 3/6 systolic ejection murmur Abdomen: Soft, nontender, and nondistended. Bowel sounds positive in all 4 quadrants. Genitourinary: The patient has a Galvez catheter in place. Extremities: No cyanosis, no clubbing, no edema. Peripheral pulses palpable. Neurologic: Cranial nerves II through XII grossly intact. The patient is awake, alert, and oriented. Skin: Normal skin turgor. No skin rashes. Labs & Vitals per chart ASSESSMENT & PLAN 72-year-old male with comorbidities including hypertension, prostate hyperplasia, sciatica, and anemia who came to the emergency room with chief complaint of dyspnea on exertion that has been progressively getting worse and subjective fevers, who was admitted to inpatient setting for further treatment and evaluation. The patient's second set of troponins were elevated. 1. NSTEMI. -Continue aspirin and statins. -Lexiscan myocardial blood flow study showing no evidence of stress-induced ischemia, but mild hypokinesis of the left ventricle and a left ventricular ejection fraction of 46% at stress. -Cardiology following. 2. Congestive heart failure exacerbation. Systolic dysfunction. Possible acute on chronic. -Ejection fraction 35-40%. -Continue diuresis. 3. Cardiomyopathy. -Ejection fraction of 35-40%. -Continue beta-blockers and GÓMEZ inhibitors. 4. Prostate hypertrophy. -Significantly elevated PSA levels. -Being followed by urology. -CT scan of the abdomen and pelvis showing enlarged prostate with lytic lesions in the inferior right sacrum and coccyx with ill-defined sclerotic lesions in the right pelvis, highly suspicious of metastatic disease from prostate cancer. The patient was started on Casodex on 11/19/2018. -Bone scan pending. 5. Essential hypertension. -Continue antihypertensives. 6. Normocytic normochromic anemia. -Probably anemia of chronic disease. -Monitor H and H closely. 7. Prediabetes. -Hemoglobin A1c 5.8. -Monitor glycemic trends. 8. Mild to moderate aortic stenosis. -Aortic valve area 1.41 cm. -Being followed by cardiology 9. Fluids, electrolytes, and nutrition. -Low-cholesterol diet. 10. DVT prophylaxis -Therapeutic Lovenox held because of hematuria. 11. Plan. -Continue cardiac monitoring. -Await further cardiology recommendations. -Await bone scan. The patient was seen in collaboration with Dr. Spivey. Result Diagram: 11/20/18 0500 11/20/18 0538 Results 24hrs Laboratory Tests Test 11/19/18 14:51 11/20/18 05:00 11/20/18 05:38 Creatine Kinase 85 60 Creatine Kinase Index 2.3 1.3 Creatinine Kinase MB (Mass) 1.93 0.79 Troponin I 1.230 *H 0.808 *H White Blood Count 7.3 Red Blood Count 3.11 L Hemoglobin 9.6 L Hematocrit 29.5 L Mean Corpuscular Volume 94.9 Mean Corpuscular Hemoglobin 30.9 Mean Corpuscular Hemoglobin Concent 32.5 Red Cell Distribution Width 13.8 Platelet Count 217 Mean Platelet Volume 11.0 H Immature Granulocytes % 0.400 Neutrophils % 67.6 Lymphocytes % 19.8 Monocytes % 11.6 H Eosinophils % 0.3 Basophils % 0.3 Nucleated Red Blood Cells % 0.0 Immature Granulocytes # 0.030 Neutrophils # 5.0 Lymphocytes # 1.5 Monocytes # 0.9 Eosinophils # 0.0 Basophils # 0.0 Nucleated Red Blood Cells # 0.0 Sodium Level 137 Potassium Level 4.0 Chloride Level 103 Carbon Dioxide Level 28 Anion Gap 6 Blood Urea Nitrogen 39 #H Creatinine 1.15 Est Glomerular Filtrat Rate mL/min Glucose Level 134 Calcium Level 8.5 Phosphorus Level 4.5 Magnesium Level 2.1 Exam/Review of Systems Exam Vitals Vital Signs Date Temp Pulse Resp B/P (MAP) Pulse Ox O2 O2 Flow FiO2 Time Delivery Rate 11/20/18 83 08:01 11/20/18 98.6 18 110/56 95 Room Air 07:30 (74) Intake and Output 11/19/18 11/19/18 11/20/18 1515:00 23:00 07:00 IntakeIntake Total 400 ml 500 ml OutputOutput Total 1000 ml 950 ml BalanceBalance -600 ml -450 ml Results Results 24hrs Laboratory Tests Test 11/19/18 14:51 11/20/18 05:00 11/20/18 05:38 Creatine Kinase 85 60 Creatine Kinase Index 2.3 1.3 Creatinine Kinase MB (Mass) 1.93 0.79 Troponin I 1.230 *H 0.808 *H White Blood Count 7.3 Red Blood Count 3.11 L Hemoglobin 9.6 L Hematocrit 29.5 L Mean Corpuscular Volume 94.9 Mean Corpuscular Hemoglobin 30.9 Mean Corpuscular Hemoglobin Concent 32.5 Red Cell Distribution Width 13.8 Platelet Count 217 Mean Platelet Volume 11.0 H Immature Granulocytes % 0.400 Neutrophils % 67.6 Lymphocytes % 19.8 Monocytes % 11.6 H Eosinophils % 0.3 Basophils % 0.3 Nucleated Red Blood Cells % 0.0 Immature Granulocytes # 0.030 Neutrophils # 5.0 Lymphocytes # 1.5 Monocytes # 0.9 Eosinophils # 0.0 Basophils # 0.0 Nucleated Red Blood Cells # 0.0 Sodium Level 137 Potassium Level 4.0 Chloride Level 103 Carbon Dioxide Level 28 Anion Gap 6 Blood Urea Nitrogen 39 #H Creatinine 1.15 Est Glomerular Filtrat Rate mL/min Glucose Level 134 Calcium Level 8.5 Phosphorus Level 4.5 Magnesium Level 2.1 Medications Medication Current Medications IV Flush (NS 3 ml) 3 ml PER PROTOCOL IV ; Start 11/18/18 at 15:00 Aspirin (Aspirin) 81 mg DAILY PO Last administered on 11/20/18at 08:07; Admin Dose 81 MG; Start 11/19/18 at 09:00 Nitroglycerin (Nitroglycerin (Sl Tab) 0.4 Mg) 1 tab Q5M PRN SL .CHEST PAIN; Start 11/18/18 at 15:00 Acetaminophen (Tylenol Tab) 650 mg Q6H PRN PO .PAIN 1-3 OR TEMP Last administered on 11/18/18at 16:04; Admin Dose 650 MG; Start 11/18/18 at 15:00 Amlodipine Besylate (Norvasc) 10 mg DAILY PO Last administered on 11/20/18 08:07; Admin Dose 10 MG; Start 11/19/18 at 09:00 Hydrochlorothiazide (Hydrochlorothiazide) 12.5 mg DAILY@0600 PO Last administered on 11/20/18 06:34; Admin Dose 12.5 MG; Start 11/19/18 at 06:00 Lisinopril (Zestril) 10 mg BID PO Last administered on 11/20/18 08:07; Admin Dose 10 MG; Start 11/18/18 at 21:00 Metoprolol Tartrate (Lopressor) 25 mg BID PO Last administered on 11/20/18 08:07; Admin Dose 25 MG; Start 11/18/18 at 21:00 Terazosin HCl (Hytrin) 5 mg HS PO Last administered on 11/19/18 21:29; Admin Dose 5 MG; Start 11/18/18 at 21:00 Tamsulosin HCl (Flomax) 0.4 mg BID PO Last administered on 11/20/18 08:07; Admin Dose 0.4 MG; Start 11/18/18 at 21:00 Furosemide (Lasix) 20 mg BID DIURETICS IV Last administered on 11/20/18 06:33; Admin Dose 20 MG; Start 11/18/18 at 18:00 Enoxaparin Sodium (Lovenox) 65 mg Q12 SC Last administered on 11/19/18 21:32; Admin Dose 65 MG; Start 11/19/18 at 11:00; Status Hold Atorvastatin Calcium (Lipitor) 40 mg HS PO Last administered on 11/19/18 21:28; Admin Dose 40 MG; Start 11/19/18 at 21:00 Bicalutamide (Casodex) 50 mg DAILY PO Last administered on 11/20/18 08:11; Admin Dose 50 MG; Start 11/19/18 at 15:00 BEBE ABBASI NP Nov 20, 2018 09:55
--- NOTE | 2018-11-20 12:30 | NUR ---
Translation: Jolie (utility bagger # [id number]) translated for Dr Lizarraga cardiology. Per MD, planning on angiogram for 11/21, per MD pt suffered a heart attack; due to recent hematuria, procedure will be on hold until pt is stable. Pt verbalized understanding, at bedside.
--- NOTE | 2018-11-20 13:12 | CONS ---
Assessment/Plan Assessment/Plan Hospital Course (Demo Recall) IMPRESSION: 1. Dyspnea on exertion with elevated BNP. Assess for congestive heart failure. 2. Congestive heart failure-systolic acute on chronic LVEFn 35-40 by echo 3. Abnormal electrocardiogram, assess for acute coronary syndrome. 4. Elevated PSA, severely. 5. Anemia. 6. Benign prostatic hypertrophy. 7. Hypertension-under improved control 8. Posittive troponin-peaked and now donwntrending. Lexiscan with no active ischemia only scar. Patient now with hemturia and holding of lovenox Recc: -Tele -Continue asa as tolerated only -Contineu HCTZ -Contnue lasix diuresis and follow volume status closely -Contnue ACEI/BB -trend cardiac enzymes -Given lexiscan with no active ischemia and patient having active hematuria and no CP or sob at this time will hold off on LHC and allow ongoing eval of probable prostate ca/hematuria Consultation Date/Type/Reason Admit Date/Time Nov 19, 2018 at 09:37 Initial Consult Date 11/18/18 Type of Consult Cardiology Reason for Consultation Nstemi/cardiomyopathy Requesting Provider: UNA BREAUX MD Date/Time of Note DATE: 11/20/18 TIME: 13:08 Exam/Review of Systems Vital Signs Vitals Vital Signs Date Temp Pulse Resp B/P (MAP) Pulse Ox O2 O2 Flow FiO2 Time Delivery Rate 11/20/18 72 12:12 11/20/18 98.4 20 97/54 (68) 98 Room Air 11:03 Intake and Output 11/19/18 11/19/18 11/20/18 1515:00 23:00 07:00 IntakeIntake Total 400 ml 500 ml OutputOutput Total 1000 ml 950 ml BalanceBalance -600 ml -450 ml Exam Exam .Review of Systems: CONSTITUTIONAL: No fevers, chills. PULMONARY: No sob CARDIOVASCULAR: No chest pain/palpitations GASTROINTESTINAL: No nausea/vomiting. GENITOURINARY: No hematuria/dysuria. MUSCULOSKELETAL: No myagias/arthalgias. PSYCHIATRIC: The patient denies depression. NEUROLOGIC: No weakness Constitutional: alert, oriented Psych: no complaints Head: normocephalic Respiratory: clear to auscultation Cardiovascular: regular rate and rhythm Gastrointestinal: soft, non-tender Musculoskeletal: muscle tone (normal) Extremities: edema (none) Neurological: other (No focal deficits) Labs Result Diagram: 11/20/18 0500 11/20/18 0538 Results 24hrs Laboratory Tests Test 11/19/18 14:51 11/20/18 05:00 11/20/18 05:38 Creatine Kinase 85 60 Creatine Kinase Index 2.3 1.3 Creatinine Kinase MB (Mass) 1.93 0.79 Troponin I 1.230 *H 0.808 *H White Blood Count 7.3 Red Blood Count 3.11 L Hemoglobin 9.6 L Hematocrit 29.5 L Mean Corpuscular Volume 94.9 Mean Corpuscular Hemoglobin 30.9 Mean Corpuscular Hemoglobin Concent 32.5 Red Cell Distribution Width 13.8 Platelet Count 217 Mean Platelet Volume 11.0 H Immature Granulocytes % 0.400 Neutrophils % 67.6 Lymphocytes % 19.8 Monocytes % 11.6 H Eosinophils % 0.3 Basophils % 0.3 Nucleated Red Blood Cells % 0.0 Immature Granulocytes # 0.030 Neutrophils # 5.0 Lymphocytes # 1.5 Monocytes # 0.9 Eosinophils # 0.0 Basophils # 0.0 Nucleated Red Blood Cells # 0.0 Sodium Level 137 Potassium Level 4.0 Chloride Level 103 Carbon Dioxide Level 28 Anion Gap 6 Blood Urea Nitrogen 39 #H Creatinine 1.15 Est Glomerular Filtrat Rate mL/min Glucose Level 134 Calcium Level 8.5 Phosphorus Level 4.5 Magnesium Level 2.1 Medications Medications Current Medications IV Flush (NS 3 ml) 3 ml PER PROTOCOL IV ; Start 11/18/18 at 15:00 Aspirin (Aspirin) 81 mg DAILY PO Last administered on 11/20/18at 08:07; Admin Dose 81 MG; Start 11/19/18 at 09:00 Nitroglycerin (Nitroglycerin (Sl Tab) 0.4 Mg) 1 tab Q5M PRN SL .CHEST PAIN; Start 11/18/18 at 15:00 Acetaminophen (Tylenol Tab) 650 mg Q6H PRN PO .PAIN 1-3 OR TEMP Last administered on 11/18/18at 16:04; Admin Dose 650 MG; Start 11/18/18 at 15:00 Amlodipine Besylate (Norvasc) 10 mg DAILY PO Last administered on 11/20/18at 0 8:07; Admin Dose 10 MG; Start 11/19/18 at 09:00 Hydrochlorothiazide (Hydrochlorothiazide) 12.5 mg DAILY@0600 PO Last administered on 11/20/18 06:34; Admin Dose 12.5 MG; Start 11/19/18 at 06:00 Lisinopril (Zestril) 10 mg BID PO Last administered on 11/20/18 08:07; Admin Dose 10 MG; Start 11/18/18 at 21:00 Metoprolol Tartrate (Lopressor) 25 mg BID PO Last administered on 11/20/18 08:07; Admin Dose 25 MG; Start 11/18/18 at 21:00 Terazosin HCl (Hytrin) 5 mg HS PO Last administered on 11/19/18 21:29; Admin Dose 5 MG; Start 11/18/18 at 21:00 Tamsulosin HCl (Flomax) 0.4 mg BID PO Last administered on 11/20/18 08:07; Admin Dose 0.4 MG; Start 11/18/18 at 21:00 Furosemide (Lasix) 20 mg BID DIURETICS IV Last administered on 11/20/18 06:33; Admin Dose 20 MG; Start 11/18/18 at 18:00 Enoxaparin Sodium (Lovenox) 65 mg Q12 SC Last administered on 11/19/18 21:32; Admin Dose 65 MG; Start 11/19/18 at 11:00; Status Hold Atorvastatin Calcium (Lipitor) 40 mg HS PO Last administered on 11/19/18 21:28; Admin Dose 40 MG; Start 11/19/18 at 21:00 Bicalutamide (Casodex) 50 mg DAILY PO Last administered on 11/20/18 08:11; Admin Dose 50 MG; Start 11/19/18 at 15:00 NEFTALI LYNN Nov 20, 2018 13:11
--- NOTE | 2018-11-20 18:27 | NUR ---
EOSS: pt resting on bed, Vs stable, pt with Galvez cath draining pink/red urine, Dr Bañuelos notified, he is to round on pt this evening, pt's at bedside. Planned angiogram with Dr Lizarraga on hold due to hematuria. Hourly rounding done per unit's protocol, bed brakes engaged, side rails up, call light within reach. Will endorse to security shift manager nurse.
--- NOTE | 2018-11-20 18:52 | CONS ---
Consult Date/Type/Reason Admit Date/Time Nov 19, 2018 at 09:37 Initial Consult Date 11/18/18 Type of Consultation: Urology Reason for Consultation Abdominal and chest pain, patient has elevated PSA and hard prostate Requesting Provider: UNA BREAUX MD Date/Time of Note DATE: 11/20/18 TIME: 18:44 Subjective Patient has an indwelling catheter and he has blood in the urine and is concerned about it. Objective Vitals Vital Signs Date Temp Pulse Resp B/P (MAP) Pulse Ox O2 O2 Flow FiO2 Time Delivery Rate 11/20/18 74 16:04 11/20/18 98.3 18 118/58 97 Room Air 15:17 (78) Intake and Output 11/19/18 11/19/18 11/20/18 1515:00 23:00 07:00 IntakeIntake Total 400 ml 500 ml OutputOutput Total 1000 ml 950 ml BalanceBalance -600 ml -450 ml Exam The abdomen is soft. The Galvez catheter is draining clear pink urine. There are no clots. Results/Medications Result Diagram: 11/20/18 0500 11/20/18 0538 Results 24 hrs Laboratory Tests Test 11/20/18 05:00 11/20/18 05:38 White Blood Count 7.3 Red Blood Count 3.11 L Hemoglobin 9.6 L Hematocrit 29.5 L Mean Corpuscular Volume 94.9 Mean Corpuscular Hemoglobin 30.9 Mean Corpuscular Hemoglobin Concent 32.5 Red Cell Distribution Width 13.8 Platelet Count 217 Mean Platelet Volume 11.0 H Immature Granulocytes % 0.400 Neutrophils % 67.6 Lymphocytes % 19.8 Monocytes % 11.6 H Eosinophils % 0.3 Basophils % 0.3 Nucleated Red Blood Cells % 0.0 Immature Granulocytes # 0.030 Neutrophils # 5.0 Lymphocytes # 1.5 Monocytes # 0.9 Eosinophils # 0.0 Basophils # 0.0 Nucleated Red Blood Cells # 0.0 Sodium Level 137 Potassium Level 4.0 Chloride Level 103 Carbon Dioxide Level 28 Anion Gap 6 Blood Urea Nitrogen 39 #H Creatinine 1.15 Est Glomerular Filtrat Rate mL/min Glucose Level 134 Calcium Level 8.5 Phosphorus Level 4.5 Magnesium Level 2.1 Creatine Kinase 60 Creatine Kinase Index 1.3 Creatinine Kinase MB (Mass) 0.79 Troponin I 0.808 *H Home Meds Reported Medications Mirabegron (Myrbetriq) 50 Mg Tab.er.24h, 25 MG PO DAILY, TAB 11/18/18 Lisinopril* (Lisinopril*) 10 Mg Tablet, 10 MG PO BID, #30 TAB 11/18/18 Esomeprazole Mag Trihydrate (Nexium) 40 Mg Capsule.dr, 40 MG PO DAILY, #30 CAP 11/18/18 Acetaminophen* (Acetaminophen*) 500 MG Extra Strength Tablet, 1000 MG PO Q6H PRN for PAIN AND OR ELEVATED TEMP, TAB 11/18/18 Terazosin Hcl* (Terazosin Hcl*) 5 Mg Capsule, 5 MG PO HS, CAP 11/18/18 Hydrochlorothiazide* (Hydrochlorothiazide*) 12.5 Mg Tablet, 12.5 MG PO DAILY, #30 TAB 11/18/18 Fluticasone Propionate (Flonase Allergy Relief) 9.9 Ml [place].susp, 1 SPRAY NASAL DAILY, #1 BOTTLE TO EACH NOSTRIL 11/18/18 Metoprolol Tartrate* (Lopressor*) 25 Mg Tablet, 25 MG PO BID, #60 TAB 11/18/18 Aspirin* (Aspirin* EC) 81 Mg Tablet.dr, 81 MG PO DAILY, TAB 11/18/18 Ciprofloxacin Hcl* (Ciprofloxacin Hcl*) 500 Mg Tablet, 500 MG PO BID, #14 TAB 11/18/18 Amlodipine Besylate* (Amlodipine Besylate*) 10 Mg Tablet, 10 MG PO DAILY, #30 TAB 11/18/18 Discontinued Scripts Hydrocodone Bit-Acetaminophen* ([place]*) 5-325 Mg Tab, 1 TAB PO DAILY PRN for PAIN, #5 TAB Prov:NEAL SPENCER PA-C 08/21/15 Acetaminophen* (Tylophen*) 500 Mg Capsule, 500 MG PO Q6H PRN for PAIN, #30 TAB 0 Refills Prov:NEAL SPENCER PA-C 08/21/15 Medications Current Medications IV Flush (NS 3 ml) 3 ml PER PROTOCOL IV ; Start 11/18/18 at 15:00 Aspirin (Aspirin) 81 mg DAILY PO Last administered on 11/20/18at 08:07; Admin Dose 81 MG; Start 11/19/18 at 09:00 Nitroglycerin (Nitroglycerin (Sl Tab) 0.4 Mg) 1 tab Q5M PRN SL .CHEST PAIN; Start 11/18/18 at 15:00 Acetaminophen (Tylenol Tab) 650 mg Q6H PRN PO .PAIN 1-3 OR TEMP Last administered on 11/18/18 16:04; Admin Dose 650 MG; Start 11/18/18 at 15:00 Amlodipine Besylate (Norvasc) 10 mg DAILY PO Last administered on 11/20/18 08:07; Admin Dose 10 MG; Start 11/19/18 at 09:00 Hydrochlorothiazide (Hydrochlorothiazide) 12.5 mg DAILY@0600 PO Last administered on 11/20/18 06:34; Admin Dose 12.5 MG; Start 11/19/18 at 06:00 Lisinopril (Zestril) 10 mg BID PO Last administered on 11/20/18 08:07; Admin Dose 10 MG; Start 11/18/18 at 21:00 Metoprolol Tartrate (Lopressor) 25 mg BID PO Last administered on 11/20/18 08:07; Admin Dose 25 MG; Start 11/18/18 at 21:00 Terazosin HCl (Hytrin) 5 mg HS PO Last administered on 11/19/18 21:29; Admin Dose 5 MG; Start 11/18/18 at 21:00 Tamsulosin HCl (Flomax) 0.4 mg BID PO Last administered on 11/20/18 08:07; Admin Dose 0.4 MG; Start 11/18/18 at 21:00 Furosemide (Lasix) 20 mg BID DIURETICS IV Last administered on 11/20/18 18:14; Admin Dose 20 MG; Start 11/18/18 at 18:00 Enoxaparin Sodium (Lovenox) 65 mg Q12 SC Last administered on 11/19/18 21:32; Admin Dose 65 MG; Start 11/19/18 at 11:00; Status Hold Atorvastatin Calcium (Lipitor) 40 mg HS PO Last administered on 11/19/18 21:28; Admin Dose 40 MG; Start 11/19/18 at 21:00 Bicalutamide (Casodex) 50 mg DAILY PO Last administered on 11/20/18 08:11; Admin Dose 50 MG; Start 11/19/18 at 15:00 Assessment/Plan Hospital Course (Demo Recall) 72-year-old male presented to the emergency room with abdominal pain and chest pain. He also was complaining of urinary frequency and urgency. He had a PSA done and that came back elevated 361. Therefore a urological consultation was requested Patient states that he has been having nocturia 5-6 times and has urinary urgency. His medical doctor DR Ambrocio had prescribed for him terazosin 5 mg daily and Myrbetriq. Patient has not been evaluated by a urologist before. On the exam the patient does have a hard and large prostate very suspicious for cancer. In addition his PSA was 361 which is very high. CT scan of the abdomen and pelvis did show: The lung bases are clear of any infiltrate . There are multiple noncalcified less than 5 mm nodules at the lung bases.. A tiny left pleural effusion is se en. The liver is of normal size, contour and attenuation with no mass or ductal dilatation. No gallstones are visualized. No splenic, adrenal or pancreatic abnormalities present. Kidneys are of normal size and contour. No hydronephrosis, calculus or solid masses seen. Noted is a 2.3 cm parenchymal cyst in the midpole of the right kidney. Ureters are of normal course and caliber with no stone. Galvez catheter is present and an empty urinary bladder. . Prostate is enlarged. There is no aneurysm. Calcified plaque is seen in the wall of the aorta and iliac arteries. There are enlarged left external iliac chain lymph nodes.. No bowel mass or obstruction is present. The appendix is normal. No phlegmon, ascites or pneumoperitoneum is visualized. Ill-defined sclerotic lesions are seen in the right ischium and inferior pubic ramus with permeative lysis in the left pubis. There is a lytic lesion in the inferior right sacrum and the coccyx. IMPRESSION: Multiple less than 5 mm nodules in the lung bases. Left pelvic lymphadenopathy. Ill-defined sclerotic lesions right pelvis. Permeative lysis left pubis. Lytic lesion inferior right sacrum and coccyx. Findings are compatible with metastatic disease. Enlarged prostate gland consistent with known history of prostate cancer. Tiny left pleural effusion. Right renal cyst. No further workup required. Vascular calcification Presently the Galvez catheter is draining clear urine. I did talk to his niece who was at his bedside and explained to him and she did translate the findings of elevated PSA and heart the prostate and metastatic cancer which is most likely from the prostate. Informed him that we have him on bicalutamide and that he will need prostate biopsy as outpatient and also he will need to be placed on Lupron Depot injections. Informed them that he will have to follow-up [facility] I answered all of their questions. As far as the blood in the urine he will need to drink more fluids and I will discontinue the Galvez catheter in a.m. and see that he does urinate and check his postvoid residual. WIL TEMPLETON MD Nov 20, 2018 18:52
[2018-11-20] MEDS: ATORVASTATIN 40 MG TAB PO SCH (20:36)
[2018-11-20] MEDS: TERAZOSIN 5 MG CAP PO SCH (20:36)
[2018-11-21] VITALS (13 sets, daily range): BP systolic 96–121; BP diastolic 53–67; PULSE 55–83; RESP 10–20
[2018-11-21] MEDS: FUROSEMIDE 20 MG INJ IV SCH ×2 (06:00→18:11)
[2018-11-21] MEDS: HYDROCHLOROTHIAZIDE 12.5 MG CAP PO SCH (06:00)
--- NOTE | 2018-11-21 06:15 | NUR ---
REMOVE F/C PT TOLERATED WELL RESTING WELL VITAL SIGN STABLE NO DISTRESS NOTED PT AT BED SIDE
[2018-11-21] MEDS: LISINOPRIL 10 MG TAB PO SCH ×2 (09:20→22:06)
[2018-11-21] MEDS: AMLODIPINE 10 MG TAB PO SCH (09:20)
[2018-11-21] MEDS: ASPIRIN 81 MG TAB PO SCH (09:20)
[2018-11-21] MEDS: METOPROLOL 25 MG TAB PO SCH ×2 (09:21→20:39)
[2018-11-21] MEDS: TAMSULOSIN (SR) 0.4 MG CAP PO SCH ×2 (09:21→20:37)
--- NOTE | 2018-11-21 10:15 | NUR ---
Pt's 1st void since ricci d/c'ed: Pt voided in toilet x1 after ricci d/c'ed. color: clear with олег blood, no clots visible post-void residual: 202 cc Will continue to monitor closely Addendum: 11/21/18 at 1451 by VAUGHN DIETZ RN Pt voided in urinal, 100cc, urine dark but not bloody Post void residual 552cc Will call as I do not see any straight cath parameters Will monitor closely Addendum: 11/21/18 at 1645 by VAUGHN DIETZ RN Per order: ricci re-inserted. 200cc urine output. Will continue to monitor closely
[2018-11-21] MEDS: BICALUTAMIDE 50 MG TAB PO SCH (12:14)
--- NOTE | 2018-11-21 12:36 | CONS ---
Assessment/Plan Assessment/Plan Hospital Course (Demo Recall) IMPRESSION: 1. Dyspnea on exertion with elevated BNP. Assess for congestive heart failure. 2. Congestive heart failure-systolic acute on chronic LVEF 35-40 by echo 3. Abnormal electrocardiogram, assess for acute coronary syndrome. 4. Elevated PSA, severely. 5. Anemia. 6. Benign prostatic hypertrophy. 7. Hypertension-under improved control 8. Posittive troponin-peaked and now donwntrending. Lexiscan with no active ischemia only scar. Patient now with hemturia and holding of lovenox Recc: -Tele -Continue asa as tolerated only -Contineu HCTZ -Contnue lasix diuresis and follow volume status closely -Contnue ACEI/BB -trend cardiac enzymes -Given lexiscan with no active ischemia and patient having hematuria and no CP or sob at this time will hold off on LHC and allow ongoing eval of probable prostate ca/hematuria. NO cp -will continue to follow clsoely Consultation Date/Type/Reason Admit Date/Time Nov 19, 2018 at 09:37 Initial Consult Date 11/18/18 Type of Consult Cardiology Reason for Consultation CHF Requesting Provider: UNA BREAUX MD Date/Time of Note DATE: 11/21/18 TIME: 12:34 Exam/Review of Systems Vital Signs Vitals Vital Signs Date Temp Pulse Resp B/P (MAP) Pulse Ox O2 O2 Flow FiO2 Time Delivery Rate 11/21/18 98.2 55 20 102/57 96 11:01 (72) 11/21/18 Room Air 07:22 Intake and Output 11/20/18 11/20/18 11/21/18 1515:00 23:00 07:00 IntakeIntake Total 1160 ml 500 ml OutputOutput Total 1000 ml 1000 ml BalanceBalance 160 ml -500 ml Exam Exam Review of Systems: CONSTITUTIONAL: No fevers, chills. PULMONARY: No sob CARDIOVASCULAR: No chest pain/palpitations GASTROINTESTINAL: No nausea/vomiting. GENITOURINARY: No hematuria/dysuria. MUSCULOSKELETAL: No myagias/arthalgias. PSYCHIATRIC: The patient denies depression. NEUROLOGIC: No weakness Constitutional: oriented Psych: no complaints Head: normocephalic ENMT: mucosa pink and moist Neck: supple, jvd (9 cm water) Respiratory: diminished breath sounds Cardiovascular: regular rate and rhythm Gastrointestinal: soft, non-tender Musculoskeletal: muscle tone (normal) Extremities: edema (none) Neurological: other (No focal deficits) Labs Result Diagram: 11/21/18 0520 11/21/18 0520 Results 24hrs Laboratory Tests Test 11/21/18 05:20 White Blood Count 7.6 Red Blood Count 3.19 L Hemoglobin 9.9 L Hematocrit 29.7 L Mean Corpuscular Volume 93.1 Mean Corpuscular Hemoglobin 31.0 Mean Corpuscular Hemoglobin Concent 33.3 Red Cell Distribution Width 13.5 Platelet Count 246 Mean Platelet Volume 10.8 H Immature Granulocytes % 0.400 Neutrophils % 66.2 Lymphocytes % 18.8 Monocytes % 11.7 H Eosinophils % 2.6 Basophils % 0.3 Nucleated Red Blood Cells % 0.0 Immature Granulocytes # 0.030 Neutrophils # 5.0 Lymphocytes # 1.4 Monocytes # 0.9 Eosinophils # 0.2 Basophils # 0.0 Nucleated Red Blood Cells # 0.0 Sodium Level 139 Potassium Level 4.3 Chloride Level 99 Carbon Dioxide Level 27 Anion Gap 13 # Blood Urea Nitrogen 50 H Creatinine 1.30 H Est Glomerular Filtrat Rate mL/min Glucose Level 132 Calcium Level 8.7 Phosphorus Level 5.0 H Magnesium Level 2.6 H Total Bilirubin 0.1 L Direct Bilirubin 0.00 Indirect Bilirubin 0.1 Aspartate Amino Transf (AST/SGOT) 50 H Alanine Aminotransferase (ALT/SGPT) 48 Alkaline Phosphatase 111 Total Protein 7.7 Albumin 3.9 Globulin 3.80 H Albumin/Globulin Ratio 1.02 Medications Medications Current Medications IV Flush (NS 3 ml) 3 ml PER PROTOCOL IV ; Start 11/18/18 at 15:00 Aspirin (Aspirin) 81 mg DAILY PO Last administered on 11/21/18at 09:20; Admin Dose 81 MG; Start 11/19/18 at 09:00 Nitroglycerin (Nitroglycerin (Sl Tab) 0.4 Mg) 1 tab Q5M PRN SL .CHEST PAIN; Start 11/18/18 at 15:00 Acetaminophen (Tylenol Tab) 650 mg Q6H PRN PO .PAIN 1-3 OR TEMP Last administered on 11/18/18at 16:04; Admin Dose 650 MG; Start 11/18/18 at 15:00 Amlodipine Besylate (Norvasc) 10 mg DAILY PO Last administered on 11/21/18at 09:20; Admin Dose 10 MG; Start 11/19/18 at 09:00 Hydrochlorothiazide (Hydrochlorothiazide) 12.5 mg DAILY@0600 PO Last administered on 11/21/18 06:00; Admin Dose 12.5 MG; Start 11/19/18 at 06:00 Lisinopril (Zestril) 10 mg BID PO Last administered on 11/21/18 09:20; Admin Dose 10 MG; Start 11/18/18 at 21:00 Metoprolol Tartrate (Lopressor) 25 mg BID PO Last administered on 11/21/18 09:21; Admin Dose 25 MG; Start 11/18/18 at 21:00 Terazosin HCl (Hytrin) 5 mg HS PO Last administered on 11/20/18 20:36; Admin Dose 5 MG; Start 11/18/18 at 21:00 Tamsulosin HCl (Flomax) 0.4 mg BID PO Last administered on 11/21/18 09:21; Admin Dose 0.4 MG; Start 11/18/18 at 21:00 Furosemide (Lasix) 20 mg BID DIURETICS IV Last administered on 11/21/18 06:00; Admin Dose 20 MG; Start 11/18/18 at 18:00 Enoxaparin Sodium (Lovenox) 65 mg Q12 SC Last administered on 11/19/18 21:32; Admin Dose 65 MG; Start 11/19/18 at 11:00; Status Hold Atorvastatin Calcium (Lipitor) 40 mg HS PO Last administered on 11/20/18 20:36; Admin Dose 40 MG; Start 11/19/18 at 21:00 Bicalutamide (Casodex) 50 mg DAILY PO Last administered on 11/21/18 12:14; Admin Dose 50 MG; Start 11/19/18 at 15:00 NEFTALI LYNN Nov 21, 2018 12:36
--- NOTE | 2018-11-21 15:37 | PN ---
Date/Time of Note Date/Time of Note DATE: 11/21/18 TIME: 15:34 Assessment/Plan VTE Prophylaxis Risk score (from [facility])>0 risk: 8 SCD applied (from [facility]): No SCD contraindicated: low risk/ambulating Pharmacological prophylaxis: LMWH Lines/Catheters IV Catheter Type (from [facility]): [place] Urinary Cath still in place: Yes Reason Cath still needed: urinary retention Assessment/Plan Hospital Course Assessment and plan 1. Dyspnea likely chronic compensated systolic CHF, stable continue medical management. Line 2. Cardiomyopathy, likely ischemic stable continue medical management 3. NSTEMI vs type II CT, sp stress t; stable cont medical management/risk factor modification 4. Past tobacco stable observe 5. Stenosis mild/mod, follow 6. Anemia stable follow 7. BPH 8. Hypertension 9. Lymphadenopathy 10. Suspected metastatic prostate ca, w LN to bone/ lung. Bone scan pending. Outpt oncology/urology with [facility]. 11. Urinary retention Galvez ambulate Subjective: Events noted Objective: Vital signs stable Physical exam Deferred patient in radiology suite Result Diagram: 11/21/18 0520 11/21/18 0520 Results 24hrs Laboratory Tests Test 11/21/18 05:20 White Blood Count 7.6 Red Blood Count 3.19 L Hemoglobin 9.9 L Hematocrit 29.7 L Mean Corpuscular Volume 93.1 Mean Corpuscular Hemoglobin 31.0 Mean Corpuscular Hemoglobin Concent 33.3 Red Cell Distribution Width 13.5 Platelet Count 246 Mean Platelet Volume 10.8 H Immature Granulocytes % 0.400 Neutrophils % 66.2 Lymphocytes % 18.8 Monocytes % 11.7 H Eosinophils % 2.6 Basophils % 0.3 Nucleated Red Blood Cells % 0.0 Immature Granulocytes # 0.030 Neutrophils # 5.0 Lymphocytes # 1.4 Monocytes # 0.9 Eosinophils # 0.2 Basophils # 0.0 Nucleated Red Blood Cells # 0.0 Sodium Level 139 Potassium Level 4.3 Chloride Level 99 Carbon Dioxide Level 27 Anion Gap 13 # Blood Urea Nitrogen 50 H Creatinine 1.30 H Est Glomerular Filtrat Rate mL/min Glucose Level 132 Calcium Level 8.7 Phosphorus Level 5.0 H Magnesium Level 2.6 H Total Bilirubin 0.1 L Direct Bilirubin 0.00 Indirect Bilirubin 0.1 Aspartate Amino Transf (AST/SGOT) 50 H Alanine Aminotransferase (ALT/SGPT) 48 Alkaline Phosphatase 111 Total Protein 7.7 Albumin 3.9 Globulin 3.80 H Albumin/Globulin Ratio 1.02 Exam/Review of Systems Exam Vitals Vital Signs Date Temp Pulse Resp B/P (MAP) Pulse Ox O2 O2 Flow FiO2 Time Delivery Rate 11/21/18 98.1 71 20 121/59 98 Room Air 15:01 (79) Intake and Output 11/20/18 11/20/18 11/21/18 1515:00 23:00 07:00 IntakeIntake Total 1160 ml 500 ml OutputOutput Total 1000 ml 1000 ml BalanceBalance 160 ml -500 ml Results Results 24hrs Laboratory Tests Test 11/21/18 05:20 White Blood Count 7.6 Red Blood Count 3.19 L Hemoglobin 9.9 L Hematocrit 29.7 L Mean Corpuscular Volume 93.1 Mean Corpuscular Hemoglobin 31.0 Mean Corpuscular Hemoglobin Concent 33.3 Red Cell Distribution Width 13.5 Platelet Count 246 Mean Platelet Volume 10.8 H Immature Granulocytes % 0.400 Neutrophils % 66.2 Lymphocytes % 18.8 Monocytes % 11.7 H Eosinophils % 2.6 Basophils % 0.3 Nucleated Red Blood Cells % 0.0 Immature Granulocytes # 0.030 Neutrophils # 5.0 Lymphocytes # 1.4 Monocytes # 0.9 Eosinophils # 0.2 Basophils # 0.0 Nucleated Red Blood Cells # 0.0 Sodium Level 139 Potassium Level 4.3 Chloride Level 99 Carbon Dioxide Level 27 Anion Gap 13 # Blood Urea Nitrogen 50 H Creatinine 1.30 H Est Glomerular Filtrat Rate mL/min Glucose Level 132 Calcium Level 8.7 Phosphorus Level 5.0 H Magnesium Level 2.6 H Total Bilirubin 0.1 L Direct Bilirubin 0.00 Indirect Bilirubin 0.1 Aspartate Amino Transf (AST/SGOT) 50 H Alanine Aminotransferase (ALT/SGPT) 48 Alkaline Phosphatase 111 Total Protein 7.7 Albumin 3.9 Globulin 3.80 H Albumin/Globulin Ratio 1.02 Medications Medication Current Medications IV Flush (NS 3 ml) 3 ml PER PROTOCOL IV ; Start 11/18/18 at 15:00 Aspirin (Aspirin) 81 mg DAILY PO Last administered on 11/21/18at 09:20; Admin Dose 81 MG; Start 11/19/18 at 09:00 Nitroglycerin (Nitroglycerin (Sl Tab) 0.4 Mg) 1 tab Q5M PRN SL .CHEST PAIN; Start 11/18/18 at 15:00 Acetaminophen (Tylenol Tab) 650 mg Q6H PRN PO .PAIN 1-3 OR TEMP Last administered on 11/18/18 16:04; Admin Dose 650 MG; Start 11/18/18 at 15:00 Amlodipine Besylate (Norvasc) 10 mg DAILY PO Last administered on 11/21/18 09:20; Admin Dose 10 MG; Start 11/19/18 at 09:00 Hydrochlorothiazide (Hydrochlorothiazide) 12.5 mg DAILY@0600 PO Last administered on 11/21/18 06:00; Admin Dose 12.5 MG; Start 11/19/18 at 06:00 Lisinopril (Zestril) 10 mg BID PO Last administered on 11/21/18 09:20; Admin Dose 10 MG; Start 11/18/18 at 21:00 Metoprolol Tartrate (Lopressor) 25 mg BID PO Last administered on 11/21/18 09:21; Admin Dose 25 MG; Start 11/18/18 at 21:00 Terazosin HCl (Hytrin) 5 mg HS PO Last administered on 11/20/18 20:36; Admin Dose 5 MG; Start 11/18/18 at 21:00 Tamsulosin HCl (Flomax) 0.4 mg BID PO Last administered on 11/21/18 09:21; Admin Dose 0.4 MG; Start 11/18/18 at 21:00 Furosemide (Lasix) 20 mg BID DIURETICS IV Last administered on 11/21/18 06:00; Admin Dose 20 MG; Start 11/18/18 at 18:00 Enoxaparin Sodium (Lovenox) 65 mg Q12 SC Last administered on 11/19/18 21:32; Admin Dose 65 MG; Start 11/19/18 at 11:00; Status Hold Atorvastatin Calcium (Lipitor) 40 mg HS PO Last administered on 11/20/18 20:36; Admin Dose 40 MG; Start 11/19/18 at 21:00 Bicalutamide (Casodex) 50 mg DAILY PO Last administered on 11/21/18 12:14; Admin Dose 50 MG; Start 11/19/18 at 15:00 ROMY ZAMORA MD Nov 21, 2018 15:37
[2018-11-21] MEDS ORDERED: ONDANSETRON 4 MG INJ IV PRN (16:00)
--- NOTE | 2018-11-21 19:46 | NUR ---
EOSS: Pt VSS, AOOx4, complaints of pain but refusing pain meds, bone scan complete--MD made aware. Pt sleeping comfortably by end of shift. [place] ice cream man used for explanation of medical plan of care and to ensure needs were met and questions answered. Pt's ricci reinserted due to post void residuals increasing.
[2018-11-21] MEDS: ATORVASTATIN 40 MG TAB PO SCH (20:37)
[2018-11-21] MEDS: ACETAMINOPHEN 325 MG TAB PO PRN (20:51)
[2018-11-21] MEDS ORDERED: SENNA/DOCUSATE NA (8.6MG/50MG) TAB PO SCH (21:00)
[2018-11-21] MEDS: TERAZOSIN 5 MG CAP PO SCH (22:06)
[2018-11-22] VITALS (11 sets, daily range): BP systolic 95–121; BP diastolic 53–59; PULSE 58–70; RESP 20
[2018-11-22] MEDS: HYDROCHLOROTHIAZIDE 12.5 MG CAP PO SCH (06:01)
[2018-11-22] MEDS: FUROSEMIDE 20 MG INJ IV SCH (06:01)
--- NOTE | 2018-11-22 06:30 | NUR ---
end of shift: patient is alert and oriented, sinus rhythm on monitor, can ambulate with assist, at bedside, had some pain on the right lateral ribs, given tylenol with some relief; ricci catheter draining dark sam urine; BP meds held during the night due to low BP; on chemo precaution; needs attended; will endorse to dayshift nurse
--- NOTE | 2018-11-22 08:39 | CONS ---
Consult Date/Type/Reason Admit Date/Time Nov 19, 2018 at 09:37 Initial Consult Date 11/18/18 Type of Consultation: Urology Reason for Consultation Urinary retention, metastatic prostate cancer. Requesting Provider: UNA BREAUX MD Date/Time of Note DATE: 11/22/18 TIME: 08:33 Subjective Patient is comfortable but has occasional bladder spasms. He was not able to urinate and empty his bladder Objective Vitals Vital Signs Date Temp Pulse Resp B/P (MAP) Pulse Ox O2 O2 Flow FiO2 Time Delivery Rate 11/22/18 97.8 62 20 118/57 96 Room Air 07:14 (77) Intake and Output 11/21/18 11/21/18 11/22/18 1515:00 23:00 07:00 IntakeIntake Total 720 ml 500 ml OutputOutput Total 302 ml 1000 ml BalanceBalance -302 ml 720 ml -500 ml Exam Abdomen is soft. The Galvez catheter is draining clear urine Results/Medications Result Diagram: 11/22/1861311/22/18613 Results 24 hrs Laboratory Tests Test 11/21/18 10:00 11/22/18 06:14 Stool Occult Blood NEGATIVE White Blood Count 7.4 Red Blood Count 3.22 L Hemoglobin 9.8 L Hematocrit 30.2 L Mean Corpuscular Volume 93.8 Mean Corpuscular Hemoglobin 30.4 Mean Corpuscular Hemoglobin Concent 32.5 Red Cell Distribution Width 13.6 Platelet Count 257 Mean Platelet Volume 10.8 H Immature Granulocytes % 0.300 Neutrophils % 62.1 Lymphocytes % 20.0 Monocytes % 11.9 H Eosinophils % 5.4 Basophils % 0.3 Nucleated Red Blood Cells % 0.0 Immature Granulocytes # 0.020 Neutrophils # 4.6 Lymphocytes # 1.5 Monocytes # 0.9 Eosinophils # 0.4 Basophils # 0.0 Nucleated Red Blood Cells # 0.0 Sodium Level 137 Potassium Level 4.3 Chloride Level 102 Carbon Dioxide Level 28 Anion Gap 7 Blood Urea Nitrogen 62 H Creatinine 1.34 H Est Glomerular Filtrat Rate mL/min Glucose Level 130 Calcium Level 8.6 Magnesium Level 2.7 H Total Bilirubin 0.1 L Direct Bilirubin 0.00 Indirect Bilirubin 0.1 Aspartate Amino Transf (AST/SGOT) 49 H Alanine Aminotransferase (ALT/SGPT) 57 Alkaline Phosphatase 104 Total Protein 7.7 Albumin 3.8 Globulin 3.90 H Albumin/Globulin Ratio 0.97 Home Meds Reported Medications Mirabegron (Myrbetriq) 50 Mg Tab.er.24h, 25 MG PO DAILY, TAB 11/18/18 Lisinopril* (Lisinopril*) 10 Mg Tablet, 10 MG PO BID, #30 TAB 11/18/18 Esomeprazole Mag Trihydrate (Nexium) 40 Mg Capsule.dr, 40 MG PO DAILY, #30 CAP 11/18/18 Acetaminophen* (Acetaminophen*) 500 MG Extra Strength Tablet, 1000 MG PO Q6H PRN for PAIN AND OR ELEVATED TEMP, TAB 11/18/18 Terazosin Hcl* (Terazosin Hcl*) 5 Mg Capsule, 5 MG PO HS, CAP 11/18/18 Hydrochlorothiazide* (Hydrochlorothiazide*) 12.5 Mg Tablet, 12.5 MG PO DAILY, #30 TAB 11/18/18 Fluticasone Propionate (Flonase Allergy Relief) 9.9 Ml [place].susp, 1 SPRAY NASAL DAILY, #1 BOTTLE TO EACH NOSTRIL 11/18/18 Metoprolol Tartrate* (Lopressor*) 25 Mg Tablet, 25 MG PO BID, #60 TAB 11/18/18 Aspirin* (Aspirin* EC) 81 Mg Tablet.dr, 81 MG PO DAILY, TAB 11/18/18 Ciprofloxacin Hcl* (Ciprofloxacin Hcl*) 500 Mg Tablet, 500 MG PO BID, #14 TAB 11/18/18 Amlodipine Besylate* (Amlodipine Besylate*) 10 Mg Tablet, 10 MG PO DAILY, #30 TAB 11/18/18 Discontinued Scripts Hydrocodone Bit-Acetaminophen* ([place]*) 5-325 Mg Tab, 1 TAB PO DAILY PRN for PAIN, #5 TAB Prov:NEAL SPENCER PA-C 08/21/15 Acetaminophen* (Tylophen*) 500 Mg Capsule, 500 MG PO Q6H PRN for PAIN, #30 TAB 0 Refills Prov:NEAL SPENCER PA-C 08/21/15 Medications Current Medications IV Flush (NS 3 ml) 3 ml PER PROTOCOL IV ; Start 11/18/18 at 15:00 Aspirin (Aspirin) 81 mg DAILY PO Last administered on 11/21/18at 09:20; Admin D ose 81 MG; Start 11/19/18 at 09:00 Nitroglycerin (Nitroglycerin (Sl Tab) 0.4 Mg) 1 tab Q5M PRN SL .CHEST PAIN; Start 11/18/18 at 15:00 Acetaminophen (Tylenol Tab) 650 mg Q6H PRN PO .PAIN 1-3 OR TEMP Last administered on 11/21/18 20:51; Admin Dose 650 MG; Start 11/18/18 at 15:00 Amlodipine Besylate (Norvasc) 10 mg DAILY PO Last administered on 11/21/18 09:20; Admin Dose 10 MG; Start 11/19/18 at 09:00 Hydrochlorothiazide (Hydrochlorothiazide) 12.5 mg DAILY@0600 PO Last administered on 11/22/18 06:01; Admin Dose 12.5 MG; Start 11/19/18 at 06:00 Lisinopril (Zestril) 10 mg BID PO Last administered on 11/21/18 09:20; Admin Dose 10 MG; Start 11/18/18 at 21:00 Metoprolol Tartrate (Lopressor) 25 mg BID PO Last administered on 11/21/18 20:39; Admin Dose 25 MG; Start 11/18/18 at 21:00 Terazosin HCl (Hytrin) 5 mg HS PO Last administered on 11/20/18 20:36; Admin Dose 5 MG; Start 11/18/18 at 21:00 Tamsulosin HCl (Flomax) 0.4 mg BID PO Last administered on 11/21/18 20:37; Admin Dose 0.4 MG; Start 11/18/18 at 21:00 Furosemide (Lasix) 20 mg BID DIURETICS IV Last administered on 11/22/18 06:0 1; Admin Dose 20 MG; Start 11/18/18 at 18:00 Enoxaparin Sodium (Lovenox) 65 mg Q12 SC Last administered on 11/19/18 21:32; Admin Dose 65 MG; Start 11/19/18 at 11:00; Status Hold Atorvastatin Calcium (Lipitor) 40 mg HS PO Last administered on 11/21/18 20:37; Admin Dose 40 MG; Start 11/19/18 at 21:00 Bicalutamide (Casodex) 50 mg DAILY PO Last administered on 11/21/18 12:14; Admin Dose 50 MG; Start 11/19/18 at 15:00 Ondansetron HCl (Zofran Inj) 4 mg Q4H PRN IV NAUSEA AND/OR VOMITING; Start 11/21/18 at 16:00 Senna/Docusate Sodium (Senokot-S) 2 tab HS PO Last administered on 11/21/18at 20:44; Admin Dose 2 TAB; Start 11/21/18 at 21:00 Imaging Bone scan 1. Numerous areas of intensely increased activity in the pelvic bones and sacrum, as described above corresponding to lytic and sclerotic bony lesions on the CT scan dated November 19, 2018, worrisome for skeletal metastases. 2. Possibly post-traumatic changes of the right shoulder. 3. Possibly post-traumatic changes in the right anterior approximately 2nd rib and right upper sternum; skeletal metastases cannot be ruled out. 4. No other definite skeletal abnormalities. Assessment/Plan Hospital Course (Demo Recall) 72-year-old male presented to the emergency room with abdominal pain and chest pain. He also was complaining of urinary frequency and urgency. He had a PSA done and that came back elevated 361. Therefore a urological consultation was requested Patient states that he has been having nocturia 5-6 times and has urinary urgency. His medical doctor DR Ambrocio had prescribed for him terazosin 5 mg daily and Myrbetriq. Patient has not been evaluated by a urologist before. On the exam the patient does have a hard and large prostate very suspicious for cancer. In addition his PSA was 361 which is very high. CT scan of the abdomen and pelvis did show: The lung bases are clear of any infiltrate . There are multiple noncalcified less than 5 mm nodules at the lung bases.. A tiny left pleural effusion is seen. The liver is of normal size, contour and attenuation with no mass or ductal dilatation. No gallstones are visualized. No splenic, adrenal or pancreatic abnormalities present. Kidneys are of normal size and contour. No hydronephrosis, calculus or solid masses seen. Noted is a 2.3 cm parenchymal cyst in the midpole of the right kidney. Ureters are of normal course and caliber with no stone. Galvez catheter is present and an empty urinary bladder. . Prostate is enlarged. There is no aneurysm. Calcified plaque is seen in the wall of the aorta and iliac arteries. There are enlarged left external iliac chain lymph nodes.. No bowel mass or obstruction is present. The appendix is normal. No phlegmon, ascites or pneumoperitoneum is visualized. Ill-defined sclerotic lesions are seen in the right ischium and inferior pubic ramus with permeative lysis in the left pubis. There is a lytic lesion in the inferior right sacrum and the coccyx. IMPRESSION: Multiple less than 5 mm nodules in the lung bases. Left pelvic lymphadenopathy. Ill-defined sclerotic lesions right pelvis. Permeative lysis left pubis. Lytic lesion inferior right sacrum and coccyx. Findings are compatible with metastatic disease. Enlarged prostate gland consistent with known history of prostate cancer. Tiny left pleural effusion. Right renal cyst. No further workup required. Vascular calcification Bone scan: 1. Numerous areas of intensely increased activity in the pelvic bones and sacrum, as described above corresponding to lytic and sclerotic bony lesions on the CT scan dated November 19, 2018, worrisome for skeletal metastases. 2. Possibly post-traumatic changes of the right shoulder. 3. Possibly post-traumatic changes in the right anterior approximately 2nd rib and right upper sternum; skeletal metastases cannot be ruled out. 4. No other definite skeletal abnormalities. The Galvez catheter was removed and an attempt to see if he can urinate on his own but he only urinated small amount and the postvoid residual was over 500 mL therefore the Galvez catheter was reinserted. Impression: Metastatic prostate cancer and urinary retention. Recommend: Keep the Galvez catheter in and connected to a leg bag. Patient is to follow-up with [facility] as he has medical emergency (Restricted) and he will need to undergo a biopsy of the prostate to confirm the diagnosis and re ceive Lupron injections. We already started him here on bicalutamide. WIL TEMPLETON MD Nov 22, 2018 08:39
[2018-11-22] MEDS: LISINOPRIL 10 MG TAB PO SCH (08:58)
[2018-11-22] MEDS: ASPIRIN 81 MG TAB PO SCH (08:58)
[2018-11-22] MEDS: TAMSULOSIN (SR) 0.4 MG CAP PO SCH (08:58)
[2018-11-22] MEDS: AMLODIPINE 10 MG TAB PO SCH (08:58)
[2018-11-22] MEDS: METOPROLOL 25 MG TAB PO SCH (08:59)
[2018-11-22] MEDS: BICALUTAMIDE 50 MG TAB PO SCH (09:02)
--- NOTE | 2018-11-22 09:51 | CONS ---
Consult Date/Type/Reason Admit Date/Time Nov 19, 2018 at 09:37 Initial Consult Date 11/18/18 Type of Consultation: Urology Requesting Provider: UNA BREAUX MD Date/Time of Note DATE: 11/22/18 TIME: 09:49 Subjective NO acute events - BP in good range - feels better overall - no cardiac intervention currently planned. ROS: No fever, no chills, no nausea, no vomiting, no diarrhea/constipation No recent weight changes No chest pain, no PND, no orthopnea - mild SOB No dizziness, blurred vision No thirst, no heat or cold intolerance Objective Vitals Vital Signs Date Temp Pulse Resp B/P (MAP) Pulse Ox O2 O2 Flow FiO2 Time Delivery Rate 11/22/18 63 08:00 11/22/18 97.8 20 118/57 96 Room Air 07:14 (77) Intake and Output 11/21/18 11/21/18 11/22/18 1515:00 23:00 07:00 IntakeIntake Total 720 ml 500 ml OutputOutput Total 302 ml 1000 ml BalanceBalance -302 ml 720 ml -500 ml Exam General: WN/WD/NAD, AOx 3 HEENT: Unicetric/atraumatic/EOMI (follows commands) NECK: JVD elevated, no thyromegaly Lymph: no lymphadenopathy HEART: regular with no S3, II/ systolic murmur at apex, PMI L LUNGS: Coarse sounds ABD: soft, NT, ND, +BS : Intact Neuro: non focal SKIN: chronic changes EXT: trace edema Results/Medications Result Diagram: 11/22/1861311/22/18613 Results 24 hrs Laboratory Tests Test 11/21/18 10:00 11/22/18 06:14 Stool Occult Blood NEGATIVE White Blood Count 7.4 Red Blood Count 3.22 L Hemoglobin 9.8 L Hematocrit 30.2 L Mean Corpuscular Volume 93.8 Mean Corpuscular Hemoglobin 30.4 Mean Corpuscular Hemoglobin Concent 32.5 Red Cell Distribution Width 13.6 Platelet Count 257 Mean Platelet Volume 10.8 H Immature Granulocytes % 0.300 Neutrophils % 62.1 Lymphocytes % 20.0 Monocytes % 11.9 H Eosinophils % 5.4 Basophils % 0.3 Nucleated Red Blood Cells % 0.0 Immature Granulocytes # 0.020 Neutrophils # 4.6 Lymphocytes # 1.5 Monocytes # 0.9 Eosinophils # 0.4 Basophils # 0.0 Nucleated Red Blood Cells # 0.0 Sodium Level 137 Potassium Level 4.3 Chloride Level 102 Carbon Dioxide Level 28 Anion Gap 7 Blood Urea Nitrogen 62 H Creatinine 1.34 H Est Glomerular Filtrat Rate mL/min Glucose Level 130 Calcium Level 8.6 Magnesium Level 2.7 H Total Bilirubin 0.1 L Direct Bilirubin 0.00 Indirect Bilirubin 0.1 Aspartate Amino Transf (AST/SGOT) 49 H Alanine Aminotransferase (ALT/SGPT) 57 Alkaline Phosphatase 104 Total Protein 7.7 Albumin 3.8 Globulin 3.90 H Albumin/Globulin Ratio 0.97 Home Meds Reported Medications Mirabegron (Myrbetriq) 50 Mg Tab.er.24h, 25 MG PO DAILY, TAB 11/18/18 Lisinopril* (Lisinopril*) 10 Mg Tablet, 10 MG PO BID, #30 TAB 11/18/18 Esomeprazole Mag Trihydrate (Nexium) 40 Mg Capsule.dr, 40 MG PO DAILY, #30 CAP 11/18/18 Acetaminophen* (Acetaminophen*) 500 MG Extra Strength Tablet, 1000 MG PO Q6H PRN for PAIN AND OR ELEVATED TEMP, TAB 11/18/18 Terazosin Hcl* (Terazosin Hcl*) 5 Mg Capsule, 5 MG PO HS, CAP 11/18/18 Hydrochlorothiazide* (Hydrochlorothiazide*) 12.5 Mg Tablet, 12.5 MG PO DAILY, #30 TAB 11/18/18 Fluticasone Propionate (Flonase Allergy Relief) 9.9 Ml [place].susp, 1 SPRAY NASAL DAILY, #1 BOTTLE TO EACH NOSTRIL 11/18/18 Metoprolol Tartrate* (Lopressor*) 25 Mg Tablet, 25 MG PO BID, #60 TAB 11/18/18 Aspirin* (Aspirin* EC) 81 Mg Tablet.dr, 81 MG PO DAILY, TAB 11/18/18 Ciprofloxacin Hcl* (Ciprofloxacin Hcl*) 500 Mg Tablet, 500 MG PO BID, #14 TAB 11/18/18 Amlodipine Besylate* (Amlodipine Besylate*) 10 Mg Tablet, 10 MG PO DAILY, #30 TAB 11/18/18 Discontinued Scripts Hydrocodone Bit-Acetaminophen* ([place]*) 5-325 Mg Tab, 1 TAB PO DAILY PRN for PAIN, #5 TAB Prov:NEAL SPENCER PA-C 08/21/15 Acetaminophen* (Tylophen*) 500 Mg Capsule, 500 MG PO Q6H PRN for PAIN, #30 TAB 0 Refills Prov:NEAL SPENCER PA-C 08/21/15 Medications Current Medications IV Flush (NS 3 ml) 3 ml PER PROTOCOL IV ; Start 11/18/18 at 15:00 Aspirin (Aspirin) 81 mg DAILY PO Last administered on 11/22/18 08:58; Admin Dose 81 MG; Start 11/19/18 at 09:00 Nitroglycerin (Nitroglycerin (Sl Tab) 0.4 Mg) 1 tab Q5M PRN SL .CHEST PAIN; Start 11/18/18 at 15:00 Acetaminophen (Tylenol Tab) 650 mg Q6H PRN PO .PAIN 1-3 OR TEMP Last administered on 11/21/18 20:51; Admin Dose 650 MG; Start 11/18/18 at 15:00 Amlodipine Besylate (Norvasc) 10 mg DAILY PO Last administered on 11/22/18 08:58; Admin Dose 10 MG; Start 11/19/18 at 09:00 Hydrochlorothiazide (Hydrochlorothiazide) 12.5 mg DAILY@0600 PO Last a dministered on 11/22/18 06:01; Admin Dose 12.5 MG; Start 11/19/18 at 06:00 Lisinopril (Zestril) 10 mg BID PO Last administered on 11/22/18 08:58; Admin Dose 10 MG; Start 11/18/18 at 21:00 Metoprolol Tartrate (Lopressor) 25 mg BID PO Last administered on 11/22/18 08:59; Admin Dose 25 MG; Start 11/18/18 at 21:00 Terazosin HCl (Hytrin) 5 mg HS PO Last administered on 11/20/18 20:36; Admin Dose 5 MG; Start 11/18/18 at 21:00 Tamsulosin HCl (Flomax) 0.4 mg BID PO Last administered on 11/22/18 08:58; Admin Dose 0.4 MG; Start 11/18/18 at 21:00 Furosemide (Lasix) 20 mg BID DIURETICS IV Last administered on 11/22/18 06:01; Admin Dose 20 MG; Start 2/8/19 at 18:00 Enoxaparin Sodium (Lovenox) 65 mg Q12 SC Last administered on 11/19/18at 21:32; Admin Dose 65 MG; Start 11/19/18 at 11:00; Status Hold Atorvastatin Calcium (Lipitor) 40 mg HS PO Last administered on 11/21/18at 20:37; Admin Dose 40 MG; Start 11/19/18 at 21:00 Bicalutamide (Casodex) 50 mg DAILY PO Last administered on 11/22/18at 09:02; Admin Dose 50 MG; Start 11/19/18 at 15:00 Ondansetron HCl (Zofran Inj) 4 mg Q4H PRN IV NAUSEA AND/OR VOMITING; Start 11/21/18 at 16:00 Senna/Docusate Sodium (Senokot-S) 2 tab HS PO Last administered on 11/21/18at 20:44; Admin Dose 2 TAB; Start 11/21/18 at 21:00 Assessment/Plan Hospital Course (Demo Recall) 1. Dyspnea on exertion with elevated BNP. Assess for congestive heart failure- better now, con't to keep euvolemic. 2. Congestive heart failure-systolic acute on chronic LVEF 35-40 by echo - no indication for ICD now. 3. Abnormal electrocardiogram, assess for acute coronary syndrome - s/p MADELIN - no rev disease, no TID noted. 4. Elevated PSA, severely- urology to follow. 5. Anemia- H/H styable, no bleeding now. 6. Benign prostatic hypertrophy. 7. Hypertension-under improved control 8. Posittive troponin-peaked and now donwntrending. Lexiscan with no active ischemia only scar. Patient now with hemturia and holding of lovenox - no CP now. RICO GONZALEZ MD Nov 22, 2018 09:51
[2018-11-22] MEDS: ACETAMINOPHEN 325 MG TAB PO PRN (11:46)
--- NOTE | 2018-11-22 15:02 | DS ---
Date/Time of Note Date/Time of Note DATE: 11/22/18 TIME: 14:52 Discharge Summary Admission/Discharge Info Admit Date/Time Nov 19, 2018 at 09:37 Discharge Date/Time Patient Condition: Stable Consults Dr Elham Fenton Procedures CXR IMPRESSION: Mild cardiomegaly with pulmonary vascular congestion. 2D ECHO Conclusions: Normal left ventricular systolic function. Normal left ventricular cavity size. Sigmoid septum. Moderate left ventricular systolic dysfunction. Ejection fraction is visually estimated at 35-40 %. Tissue Doppler/Mitral Doppler indices are consistent with impaired relaxation (Stage I diastolic dysfunction). These segments of the LV are hypokinetic mid anterior segment, inferoseptum mid segment, apex and apical septum. Mild mitral leaflet calcification. Mild mitral annular calcification. Mild mitral valve regurgitation. Mild to moderate aortic stenosis. Aortic valve Max velocity 2.77 m/sec. Max PG 2.01 mmHg. Mean PG 18.00 mmHg. Aortic valve area 1.41 cm2. Aortic cusps appear moderately calcified. Normal appearance of the tricuspid valve. Estimated peak PA systolic pressure 34 mmHg. There is mild tricuspid regurgitation. Pulmonic valve not well visualized. There is trace pulmonic regurgitation. STRESS TEST IMPRESSION: 1. No definite evidence of stress-induced ischemia. 2. Mild hypokinesis of the left ventricle. 3. The left ventricle ejection fraction at stress is 46%. CT A/P IMPRESSION: Multiple less than 5 mm nodules in the lung bases. Left pelvic lymphadenopathy. Ill-defined sclerotic lesions right pelvis. Permeative lysis left pubis. Lytic lesion inferior right sacrum and coccyx. Findings are compatible with metastatic disease. Enlarged prostate gland consistent with known history of prostate cancer. Tiny left pleural effusion. Right renal cyst. No further workup required. Vascular calcifications. BONE METS IMPRESSION: 1. Numerous areas of intensely increased activity in the pelvic bones and sacrum, as described above corresponding to lytic and sclerotic bony lesions on the CT scan dated November 19, 2018, worrisome for skeletal metastases. 2. Possibly post-traumatic changes of the right shoulder. 3. Possibly post-traumatic changes in the right anterior approximately 2nd rib and right upper sternum; skeletal metastases cannot be ruled out. 4. No other definite skeletal abnormalities. Hx of Present Illness 72-year-old gentleman admitted with dyspnea on exertion. Hospital Course Hospital course: Seen by cardiology for dyspnea on exertion. Treated for decom pensated systolic CHF. Presently stable for discharge. Stress test done shows minimal/ low area of reversible deficit, for medical management. Large issue is the fact of urinary retention and suspected metastatic prostate cancer. Patient does not have tissue diagnosis at this time and needs to visit/establish with [facility]. He presently has a Galvez for urinary retention. aware additionally. Stable & fit for discharge. home health/ safety/ pt ordered. Assessment and plan 1. Dyspnea likely chronic compensated systolic CHF, stable discharge 2. Cardiomyopathy, likely ischemic stable continue medical management 3. NSTEMI vs type II ID, sp stress t; stable cont medical management/risk factor modification 4. Past tobacco stable observe 5. Aortic Stenosis mild/mod, follow 6. Anemia stable follow 7. BPH: PSA 361 8. Hypertension 9. Lymphadenopathy 10. Suspected metastatic prostate ca, w LN to bone/ lung. sp Bone scan. Outpt oncology/urology with [facility]. 11. Urinary retention Galvez ambulate 12. CKD? Creatinine today 1.3 From Urology: Recommend: Keep the Galvez catheter in and connected to a leg bag. To follow-up with [facility] as he has medical emergency (Restricted) and he will need to undergo a biopsy of the prostate to confirm the diagnosis and receive Lupron injections. We already started him here on bicalutamide. Home Meds Reported Medications Mirabegron (Myrbetriq) 50 Mg Tab.er.24h, 25 MG PO DAILY, TAB 11/18/18 Lisinopril* (Lisinopril*) 10 Mg Tablet, 10 MG PO BID, #30 TAB 11/18/18 Esomeprazole Mag Trihydrate (Nexium) 40 Mg Capsule.dr, 40 MG PO DAILY, #30 CAP 11/18/18 Acetaminophen* (Acetaminophen*) 500 MG Extra Strength Tablet, 1000 MG PO Q6H PRN for PAIN AND OR ELEVATED TEMP, TAB 11/18/18 Terazosin Hcl* (Terazosin Hcl*) 5 Mg Capsule, 5 MG PO HS, CAP 11/18/18 Hydrochlorothiazide* (Hydrochlorothiazide*) 12.5 Mg Tablet, 12.5 MG PO DAILY, #30 TAB 11/18/18 Fluticasone Propionate (Flonase Allergy Relief) 9.9 Ml [place].susp, 1 SPRAY NASAL DAILY, #1 BOTTLE TO EACH NOSTRIL 11/18/18 Metoprolol Tartrate* (Lopressor*) 25 Mg Tablet, 25 MG PO BID, #60 TAB 11/18/18 Aspirin* (Aspirin* EC) 81 Mg Tablet.dr, 81 MG PO DAILY, TAB 11/18/18 Ciprofloxacin Hcl* (Ciprofloxacin Hcl*) 500 Mg Tablet, 500 MG PO BID, #14 TAB 11/18/18 Amlodipine Besylate* (Amlodipine Besylate*) 10 Mg Tablet, 10 MG PO DAILY, #30 TAB 11/18/18 Discontinued Scripts Hydrocodone Bit-Acetaminophen* ([place]*) 5-325 Mg Tab, 1 TAB PO DAILY PRN for PAIN, #5 TAB Prov:NEAL SPENCER PA-C 08/21/15 Acetaminophen* (Tylophen*) 500 Mg Capsule, 500 MG PO Q6H PRN for PAIN, #30 TAB 0 Refills Prov:NEAL SPENCER PA-C 08/21/15 Primary Care Provider Not On Staff Doctor Time spent on discharge: > 30 minutes Pending Labs Laboratory Tests Test 11/22/18 06:14 White Blood Count 7.4 10^3/ul (4.8-10.8) Red Blood Count 3.22 10^6/ul (4.70-6.10) Hemoglobin 9.8 g/dl (14.0-18.0) Hematocrit 30.2 % (42.0-52.0) Mean Corpuscular Volume 93.8 fl (82.0-101.0) Mean Corpuscular Hemoglobin 30.4 pg (29.0-33.0) Mean Corpuscular Hemoglobin Concent 32.5 g/dl (32.0-37.0) Red Cell Distribution Width 13.6 % (11.5-14.5) Platelet Count 257 10^3/UL (140-415) Mean Platelet Volume 10.8 fl (7.4-10.4) Immature Granulocytes % 0.300 % (0.001-0.429) Neutrophils % 62.1 % (39.0-77.0) Lymphocytes % 20.0 % (15.0-51.0) Monocytes % 11.9 % (0.0-11.0) Eosinophils % 5.4 % (0.0-7.0) Basophils % 0.3 % (0.0-2.0) Nucleated Red Blood Cells % 0.0 /100WBC (0.0-0.0) Immature Granulocytes # 0.020 10^3/ul (0.0-0.031) Neutrophils # 4.6 10^3/ul (1.6-7.5) Lymphocytes # 1.5 10^3/ul (0.8-2.9) Monocytes # 0.9 10^3/ul (0.3-0.9) Eosinophils # 0.4 10^3/ul (0.0-0.5) Basophils # 0.0 10^3/ul (0.0-0.1) Nucleated Red Blood Cells # 0.0 10^3/ul (0.0-0.0) Sodium Level 137 mmol/L (135-144) Potassium Level 4.3 mmol/L (3.5-5.1) Chloride Level 102 mmol/L (97-110) Carbon Dioxide Level 28 mmol/L (21-31) Anion Gap 7 (5-13) Blood Urea Nitrogen 62 mg/dl (7-20) Creatinine 1.34 mg/dl (0.61-1.24) Est Glomerular Filtrat Rate mL/min mL/min (>60) Glucose Level 130 mg/dl (70-220) Calcium Level 8.6 mg/dl (8.4-10.2) Magnesium Level 2.7 mg/dl (1.7-2.5) Total Bilirubin 0.1 mg/dl (0.2-1.3) Direct Bilirubin 0.00 mg/dl (0.00-0.20) Indirect Bilirubin 0.1 mg/dl (0-1.1) Aspartate Amino Transf (AST/SGOT) 49 IU/L (15-46) Alanine Aminotransferase (ALT/SGPT) 57 IU/L (13-69) Alkaline Phosphatase 104 IU/L (42-121) Total Protein 7.7 g/dl (6.1-8.1) Albumin 3.8 g/dl (3.3-4.9) Globulin 3.90 g/dl (1.3-3.2) Albumin/Globulin Ratio 0.97 ROMY ZAMORA MD Nov 22, 2018 15:02
--- NOTE | 2018-11-22 15:04 | PDOCDIS ---
Discharge Instructions CONDITION [id number] Patient Condition: [id number] Stable HOME CARE INSTRUCTIONS: [id number] Diet Instructions: Hypby0r Regular ACTIVITY: [id number] Activity Restrictions: [id number] Slowly Increase Activity Do not Drive FOLLOW UP/APPOINTMENTS Follow-up Plan appt [facility] Urology 1wk; Oncology 1-2wks ROMY ZAMORA MD Nov 22, 2018 15:04
[2018-11-22] MEDS ORDERED: BICA50TA5 PO (15:06)
[2018-11-22] MEDS ORDERED: TAMS-14 PO (15:06)
[2018-11-22] MEDS ORDERED: ATOR40TA68 PO (15:06)
[2018-11-22] MEDS ORDERED: ACET325T33 PO (15:06)
[2018-11-22] MEDS ORDERED: SENOKOTS PO (15:06)
--- NOTE | 2018-11-22 18:00 | NUR ---
Discharge disposition: Pt VSS, AOOx4, ambulatory with assist. Per order pt sent home with ricci catheter and leg bag. court recording monitor, IV and ID wristband all d/c'ed prior to leaving. RN reviewed and educated pt and at bedside regarding discharge packet, new and continuing prescriptions and specific follow up instructions. Pt and given detailed instructions regarding going to [facility] for next steps of care due to their insurance coverage. Pt and verbalize understanding of plan and stated they had no further questions. All belongings accounted for and needs met. Pt and escorted off unit via wheelchair with volunteer and RN to car brick picker at main [place]. [place] licensed loan officer SHANTE used during entire discharge discussion.
== END 2018-11-22 17:24 | disposition home health service (06) | DRG 280 ==
LOC: E/R 10:11 → TEL 11:47 → OBSVTOIN 11-19 09:37
PROVIDERS: ADMIT Internal Medicine; ATTEND Internal Medicine
PROC: 3E0234Z Introduction of Serum, Toxoid and Vaccine into Muscle, Percutaneous Approach (ICD-10-PCS; principal; 2018-11-19)
DX: I21.4 Non-ST elevation (NSTEMI) myocardial infarction (principal); I50.23 Acute on chronic systolic (congestive) heart failure; C77.9 Secondary and unspecified malignant neoplasm of lymph node, unspecified; C78.00 Secondary malignant neoplasm of unspecified lung; C79.51 Secondary malignant neoplasm of bone; I13.0 Hypertensive heart and chronic kidney disease with heart failure and stage 1 through stage 4 chronic kidney disease, or unspecified chronic kidney disease; C61 Malignant neoplasm of prostate; D64.9 Anemia, unspecified; Z23 Encounter for immunization; I35.0 Nonrheumatic aortic (valve) stenosis; N40.1 Benign prostatic hyperplasia with lower urinary tract symptoms; R33.8 Other retention of urine; I25.5 Ischemic cardiomyopathy; N18.9 Chronic kidney disease, unspecified; Z79.82 Long term (current) use of aspirin; Z87.891 Personal history of nicotine dependence; Z89.012 Acquired absence of left thumb
CPT/HCPCS: 36415; 71045; 74176; 78306; 78452; 80048; 80053; 80061; 81001; 82270; 82550; 82553; 82728; 83036; 83540; 83605; 83735; 83880; 84100; 84153; 84154; 84439; 84443; 84484; 85025; 85610; 85730; 87040; 87045; 87086; 90686; 93005; 93017; 93306; A9503; G0378; A9500; A9505; J1940; J2405; J2785; J7040

== ENCOUNTER 2019-01-15 00:09 | Inpatient (IN) | payer MEDICAID ==
[2019-01-15] VITALS (10 sets, daily range): BP systolic 107–123; BP diastolic 38–60; PULSE 77–121; RESP 16–28; Ht 167.6 cm; Wt 68.5 kg
[~2019-01-15] VITALS: Ht 167.6 cm; Wt 68.5 kg
[~2019-01-15 00:09] MED LIST changes: +ACET325T33 PO; -ACET500C5 PO; +AMLO-147 PO; +ASPI-817 PO; +ATOR40TA68 PO; +BICA50TA5 PO; +ESOM40CA PO; +FLUT9.9S NASAL; -HYDR-3498 PO; +LISI10TA2 PO; +METO25TA4 PO; +MIRA50TA PO; +SENOKOTS PO; +TAMS-14 PO; +TERA5CAP3 PO
[2019-01-15] MEDS ORDERED: SODIUM CHLORIDE 0.9% 1L BAG IV* STA (00:19)
--- NOTE | 2019-01-15 00:29 | ERD ---
ER Documentation Chief Complaint Chief Complaint BIB RA39 for SOB/CP that started today HPI This is a 73-year-old male with a past medical history of hypertension, hyperlipidemia, prostate cancer who is presenting with chest pain and shortness of breath beginning a few hours ago. The patient endorses moderate left-sided pressure-like chest pain. He reports feeling short of breath as well. He is not diaphoretic. He is not lightheaded or dizzy. His shortness of breath was getting progressively worse, so an ambulance was called. The patient was reportedly oxygenating at 89% on room air and was started on a nonrebreather fa cemask in route to the hospital. The patient also endorses having a fever with chills. He denies a cough. The patient has had no headache or vision changes. The patient does not endorse neck or back pain. The patient denies nausea or vomiting. The patient denies abdominal pain. The patient denies changes to bowel movements or urination. The patient has had no focal deficits. The patient has had no weakness or numbness or tingling to the face or extremities. ROS All systems reviewed and are negative except as per history of present illness. Medications Home Meds Active Scripts Sennosides/Docusate Sodium (Dok Plus Tablet) 1 Each Tablet, 2 TAB PO HS for 10 Days, #10 TAB 4 Refills Prov:ROMY ZAMORA MD 11/22/18 Acetaminophen* (Tylenol*) 325 Mg Tablet, 650 MG PO Q6H PRN for .PAIN 1-3 OR TEMP for 10 Days, TAB Prov:ROMY ZAMORA MD 11/22/18 Atorvastatin* (Atorvastatin*) 40 Mg Tablet, 40 MG PO HS for 30 Days, #30 TAB Prov:ROMY ZAMORA MD 11/22/18 Tamsulosin Hcl* (Flomax*) 0.4 Mg Cap.er.24h, 0.4 MG PO BID for 14 Days, #30 CAP Prov:ROMY ZAMORA MD 11/22/18 Bicalutamide* (Casodex*) 50 Mg Tablet, 50 MG PO DAILY for 14 Days, #15 TAB Prov:ROMY ZAMORA MD 11/22/18 Reported Medications Mirabegron (Myrbetriq) 50 Mg Tab.er.24h, 25 MG PO DAILY, TAB 11/18/18 Lisinopril* (Lisinopril*) 10 Mg Tablet, 10 MG PO BID, #30 TAB 11/18/18 Esomeprazole Mag Trihydrate (Nexium) 40 Mg Capsule.dr, 40 MG PO DAILY, #30 CAP 11/18/18 Terazosin Hcl* (Terazosin Hcl*) 5 Mg Capsule, 5 MG PO HS, CAP 11/18/18 Fluticasone Propionate (Flonase Allergy Relief) 9.9 Ml [place].susp, 1 SPRAY NASAL DAILY, #1 BOTTLE TO EACH NOSTRIL 11/18/18 Metoprolol Tartrate* (Lopressor*) 25 Mg Tablet, 25 MG PO BID, #60 TAB 11/18/18 Aspirin* (Aspirin* EC) 81 Mg Tablet.dr, 81 MG PO DAILY, TAB 11/18/18 Amlodipine Besylate* (Amlodipine Besylate*) 10 Mg Tablet, 10 MG PO DAILY, #30 TAB 11/18/18 Allergies Allergies: Coded Allergies: No Known Allergy (Unverified , 08/21/15) PMhx/Soc History of Surgery: No Anesthesia Reaction: No Hx Neurological Disorder: No Hx Respiratory Disorders: No Hx Cardiac Disorders: Yes (HTN) Hx Psychiatric Problems: No Hx Miscellaneous Medical Probl: Yes (Anemia) Hx Alcohol Use: Yes (Occasionally) Hx Substance Use: No Hx Tobacco Use: Yes FmHx Family History: No diabetes Physical Exam Vitals Vital Signs Date Temp Pulse Resp B/P (MAP) Pulse Ox O2 O2 Flow FiO2 Time Delivery Rate 01/15/19 110 23 130/64 93 Nasal 00:55 (86) Cannula 01/15/19 Nasal 2 00:20 Cannula 01/15/19 100.5 113 20 135/71 100 00:14 (92) Physical Exam Const: No apparent distress, well-developed, well-nourished Head: Normocephalic, Atraumatic Eyes: Normal Conjunctiva. Extraocular movements intact. ENT: Normal External Ears, Nose and Mouth. Neck: Full range of motion. No meningismus. Resp: Clear to auscultation bilaterally, No wheezes, rales or rhonchi Cardio: Regular rhythm. Tachycardia. No murmurs, rubs or gallops Abd: Soft, non tender, non distended. Normal bowel sounds Skin: No petechiae or rashes Back: No midline tenderness. No CVA tenderness Ext: No cyanosis, or edema Neur: Awake and alert. Cranial nerves intact. No facial droop. Normal strength, sensation and coordination. Psych: Normal Mood and Affect Result Diagram: 01/15/19 0030 01/15/19 0030 Results 24 hrs Laboratory Tests Test 01/15/19 00:30 01/15/19 01:29 White Blood Count 13.7 10^3/ul Red Blood Count 3.42 10^6/ul Hemoglobin 10.2 g/dl Hematocrit 31.3 % Mean Corpuscular Volume 91.5 fl Mean Corpuscular Hemoglobin 29.8 pg Mean Corpuscular Hemoglobin Concent 32.6 g/dl Red Cell Distribution Width 13.6 % Platelet Count 257 10^3/UL Mean Platelet Volume 9.9 fl Immature Granulocytes % 0.500 % Neutrophils % 84.8 % Lymphocytes % 7.2 % Monocytes % 7.3 % Eosinophils % 0.1 % Basophils % 0.1 % Nucleated Red Blood Cells % 0.0 /100WBC Immature Granulocytes # 0.070 10^3/ul Neutrophils # 11.6 10^3/ul Lymphocytes # 1.0 10^3/ul Monocytes # 1.0 10^3/ul Eosinophils # 0.0 10^3/ul Basophils # 0.0 10^3/ul Nucleated Red Blood Cells # 0.0 10^3/ul Prothrombin Time 14.3 Sec Prothrombin Time Ratio 1.1 INR International Normalized Ratio 1.10 Sodium Level 135 mmol/L Potassium Level 4.0 mmol/L Chloride Level 98 mmol/L Carbon Dioxide Level 23 mmol/L Anion Gap 14 Blood Urea Nitrogen 17 mg/dl Creatinine 0.78 mg/dl Est Glomerular Filtrat Rate mL/min mL/min Glucose Level 134 mg/dl Calcium Level 8.6 mg/dl Troponin I 0.195 ng/ml B-Type Natriuretic Peptide 520 PG/ML POC Venous Lactate 1.2 mmol/L Current Medications Medications Dose Sig/Neeru Start Time Status Last (Trade) Ordered Route PRN Stop Time Admin Dose Reason Admin Aspirin 324 mg ONCE ONCE 01/15/19 DC 01/15/19 (Aspirin) PO 00:30 01/15/19 00:48 00:31 Sodium 2,400 ml BOLUS OVER 2 01/15/19 DC 01/15/19 Chloride HOURS STAT 00:19 01/15/19 00:48 (NS) IV* 00:21 150 ml @ ONCE ONCE 01/15/19 DC 01/15/19 Levofloxacin/ 100 mls/hr IVPB 00:30 01/15/19 00:48 Dextrose 01:59 Ondansetron 4 mg ER BRIDGE 01/15/19 HCl (Zofran PRN IV 01:30 01/16/19 Inj) NAUSEA/VOMITI 01:29 NG 650 mg ER BRIDGE 01/15/19 Acetaminophen PRN PO 01:30 01/16/19 (Tylenol .MILD PAIN 01:29 Tab) 1-3 OR TEMP Enoxaparin 70 mg ONCE ONCE 01/15/19 DC Sodium SC 01:30 01/15/19 (Lovenox) 01:38 Sodium 1,000 ml @ [id number] IV 01/15/19 Chloride 80 mls/hr 01:28 IV Flush 3 ml PER 01/15/19 (NS 3 ml) PROTOCOL IV 01:30 Ondansetron 4 mg Q6H PRN 01/15/19 HCl (Zofran IV 01:30 Inj) NAUSEA/VOMITI NG 1 tab Q5M PRN 01/15/19 Nitroglycerin SL .CHEST 01:30 PAIN (Nitroglyceri n (Sl Tab) 0.4 Mg) 650 mg Q6H PRN 01/15/19 Acetaminophen PO .PAIN 1-3 01:30 (Tylenol OR TEMP Tab) Morphine 1 mg Q4H PRN 01/15/19 Sulfate IV .PAIN 01:30 (morphine) 7-10 Docusate 100 mg Q12H PRN 01/15/19 Sodium PO 01:30 (Colace) .CONSTIPATION Bisacodyl 5 mg DAILY PRN 01/15/19 (Dulcolax) PO 01:30 .CONSTIPATION Procedures/MDM MDM The patient's presentation warrants further investigation. Previous medical records, if available, were reviewed. LABS The patient's laboratory testing was obtained and reviewed. No emergent treat ment was required unless described below. CBC: Leukocytosis with left shift, concerning for a infectious etiology. Normocytic anemia, not emergent. No E/o thrombocytopenia Chemistry: No E/o severe acidosis or alkalosis or renal failure or diabetic ketoacidosis PT/INR: No E/o significant coagulopathy Lactate: No E/o severe sepsis Troponin: E/o acute ischemia BNP: Mildly elevated and an indeterminate range, likely related to demand ischemia, low clinical suspicion for heart failure. EKG EKG read by me: Rate/Rhythm: Sinus tachycardia at 113 bpm Intervals: Normal [place]: Left axis deviation. Impression: Deep ST depressions in leads V3 through V6, concerning for an NSTEMI. Sinus tachycardia. IMAGING Imaging and Radiology interpretation reviewed. CXR FINDINGS: The cardiomediastinal silhouette is within normal limits without significant interval change. The thoracic aortic arch is calcified. There is diffuse prominence of the interstitium with reticulonodular opacities within the lower lung zones bilaterally. The right costophrenic angle is incompletely visualized. There is no evidence for congestive heart failure. There is no evidence for pneumothorax. Degenerative changes are seen within the spine. IMPRESSION: 1. Calcified thoracic aortic arch. 2. Prominent interstitium with reticulonodular opacities within the lower lung zones bilaterally. 3. Degenerative changes within the spine. Electronically viewed and signed by Gordon Harris MD, on 01/15/2019 02:02 TREATMENT/DISPOSITION The patient presents with chest pain and shortness of breath. The patient was hypoxic in route to the hospital and started on a nonrebreather mask with improvement of his oxygenation. The patient is febrile and tachycardic. He does meet criteria for systemic inflammatory response. I am concerned about a possible pulmonary infection. A sepsis workup was completed. The patient's EKG also reveals ST depressions in the lateral leads concerning for an NSTEMI. The patient was given aspirin and Lovenox in the emergency department. SEPSIS NOTE SIRS Criteria: Tachycardia, fever Infectious source: Pneumonia End organ damage indicated by: AHRF Sat < 92% without oxygen SEPSIS MANAGEMENT Time to recognize sepsis: Upon arrival. Time to recognize severe sepsis: Upon arrival. Time to recognize septic shock: No septic shock at this time 3 HOUR BUNDLE Blood cultures x 2 before abx: Yes 30 ml/kg NS bolus completed Initial lactate 1.2 Repeat lactate not indicated SEPTIC SHOCK ASSESSMENT: NO lactic acid > 4.0 NO persistent hypotension (SBP < 90 or 40 mmHg drop, MAP < 65) despite 30 L/kg IV fluid bolus CRITICAL CARE Critical care time 36 minutes Emergent fluid management while maintaining close respiratory support. Provision of immediate and broad-spectrum antibiotic therapy. Simultaneous assessment for possible sources in order to direct targeted therapy. Consideration for invasive and chemical support to prevent cardiopulmonary collapse. Critical care time is independent of procedures performed. ADMISSION The patient will be admitted to panel in accordance with the patient's insurance. The patient was accepted by Dr. Mckee at 0115AM. Disclaimer: Inadvertent spelling and grammatical errors are likely due to EHR/dictation software use and do not reflect on the overall quality of patient care. Note that the electronic time recorded on this note does not necessarily reflect the actual time of the patient encounter. Departure Diagnosis: Primary Impression: NSTEMI (non-ST elevated myocardial infarction) Additional Impressions: Hypoxia Fever Fever type: unspecified Qualified Codes: R50.9 - Fever, unspecified Tachycardia Shortness of breath Sepsis Sepsis type: sepsis due to unspecified organism Qualified Codes: A41.9 - Sepsis, unspecified organism Pneumonia Pneumonia type: due to unspecified organism Laterality: bilateral Lung location: unspecified part of lung Qualified Codes: J18.9 - Pneumonia, unspecified organism Leukocytosis Leukocytosis type: unspecified Qualified Codes: D72.829 - Elevated white blood cell count, unspecified Normocytic anemia Elevated troponin Elevated brain natriuretic peptide (BNP) level Demand ischemia Condition: Serious OLEGARIO THOMSON MD Jan 15, 2019 00:29
[2019-01-15] MEDS ORDERED: LEVOFLOXACIN 750MG/D5W (PMX) 150 ML IVPB ONE (00:30)
[2019-01-15] MEDS ORDERED: ASPIRIN 81 MG TAB PO ONE (00:30)
[2019-01-15] MEDS ORDERED: ONDANSETRON 4 MG INJ IV PRN ×2 (01:30)
[2019-01-15] MEDS ORDERED: BISACODYL (EC) 5 MG TAB PO PRN (01:30)
[2019-01-15] MEDS ORDERED: ACETAMINOPHEN 325 MG TAB PO PRN ×2 (01:30)
[2019-01-15] MEDS ORDERED: ENOXAPARIN 80 MG/0.8 ML SYG SC ONE (01:30)
[2019-01-15] MEDS ORDERED: NACL 0.9% 3 ML SYG IV SCH (01:30)
[2019-01-15] MEDS ORDERED: DOCUSATE SODIUM 100 MG CAP PO PRN (01:30)
[2019-01-15] MEDS: SOD CHLORIDE 0.9% 1,000 ML IV SCH ×2 (02:17→13:07)
--- NOTE | 2019-01-15 08:59 | HP ---
Date/Time of Note Date/Time of Note DATE: 01/15/19 TIME: 08:47 Assessment/Plan VTE Prophylaxis Pharmacological prophylaxis: LMWH Lines/Catheters IV Catheter Type (from Nrsg): Saline Lock Urinary Cath still in place: No Assessment/Plan Hospital Course This is a 73-year-old male being admitted to the telemetry floor for: #1 nstemi: 1 versus type II. Patient had a negative Lexiscan stress test in November 2018. However given the nature of his chest pain and ST depressions on EKG which do appear new from previous EKGs on the EMR we will continue to trend troponins. Echocardiogram from November 2018 shows an ejection fraction of roughly 35-40% with diastolic dysfunction. At the current time he does not appe ar to be volume overloaded. We will give the patient a dose of Lovenox. He is currently chest pain-free. PRN nitro/morphine. He did receive a dose of aspirin 325 mg in the emergency department. Will consult cardiology . #2 Sepsis: Secondary to complicated urinary tract infection, possible pneumonia.. Patient recently had a catheter for approximately 2 months. Chest x-ray does show possible infiltrates were patient denies cough. Nonetheless at the current time will treat with Levaquin 750 mg IV every 24 hours. Will await culture results. #3 catheter related urinary tract infection: Patient recently discontinued his catheter that he had for 2 months. Levaquin at the current time await culture results #4 questionable community-acquired pneumonia: Chest x-ray shows possible infiltrate/opacities. The patient denies any cough we will treat with Levaquin. #5 prostate cancer: Patient is following up with urology at [facility]. Resume Lupron as an outpatient. #6 hypertension: Continue lisinopril, will hold further blood pressure medications at the current time. #7 cardiomyopathy: Patient did have an ejection fraction of approximately 35- 40%: We will continue lisinopril, will hold off on beta-dana will defer this to cardiology. Continue aspirin daily. #8 DVT GI prophylaxis: Lovenox, no GI prophylaxis indicated Further treatment strategy will be implemented as per the clinical course. Result Diagram: 01/15/19 0604 01/15/19 0604 Results 24hrs Laboratory Tests Test 01/15/19 00:30 01/15/19 01:29 01/15/19 01:52 01/15/19 06:03 White Blood Count 13.7 #H Red Blood Count 3.42 L Hemoglobin 10.2 L Hematocrit 31.3 L Mean Corpuscular 91.5 Volume Mean Corpuscular 29.8 Hemoglobin Mean Corpuscular 32.6 Hemoglobin Concent Red Cell 13.6 Distribution Width Platelet Count 257 Mean Platelet 9.9 Volume Immature 0.500 H Granulocytes % Neutrophils % 84.8 H Lymphocytes % 7.2 L Monocytes % 7.3 Eosinophils % 0.1 Basophils % 0.1 Nucleated Red 0.0 Blood Cells % Immature 0.070 H Granulocytes # Neutrophils # 11.6 H Lymphocytes # 1.0 Monocytes # 1.0 H Eosinophils # 0.0 Basophils # 0.0 Nucleated Red 0.0 Blood Cells # Prothrombin Time 14.3 Prothrombin Time 1.1 Ratio INR International 1.10 Normalized Ratio Sodium Level 135 Potassium Level 4.0 Chloride Level 98 Carbon Dioxide 23 Level Anion Gap 14 H Blood Urea 17 Nitrogen Creatinine 0.78 Est Glomerular Filtrat Rate mL/min Glucose Level 134 Calcium Level 8.6 Troponin I 0.195 *H B-Type Natriuretic 520 H Peptide POC Venous Lactate 1.2 Urine Color STRAW Urine Clarity SLIGHTLY CLOUDY A Urine pH 6.0 Urine Specific 1.003 [place] Urine Ketones NEGATIVE Urine Nitrite POSITIVE A Urine Bilirubin NEGATIVE Urine Urobilinogen NEGATIVE Urine Leukocyte 3+ H Esterase Urine Microscopic 1 RBC Urine Microscopic 72 H WBC Urine Bacteria FEW A Urine Hemoglobin 2+ H Urine Glucose NEGATIVE Urine Total NEGATIVE Protein Lactic Acid Level 1.0 Test 01/15/19 06:04 White Blood Count 12.1 H Red Blood Count 3.16 L Hemoglobin 9.4 L Hematocrit 28.8 L Mean Corpuscular 91.1 Volume Mean Corpuscular 29.7 Hemoglobin Mean Corpuscular 32.6 Hemoglobin Concent Red Cell 13.7 Distribution Width Platelet Count 221 Mean Platelet 10.7 H Volume Immature 0.500 H Granulocytes % Neutrophils % 80.9 H Lymphocytes % 11.4 L Monocytes % 7.0 Eosinophils % 0.0 Basophils % 0.2 Nucleated Red 0.0 Blood Cells % Immature 0.060 H Granulocytes # Neutrophils # 9.8 H Lymphocytes # 1.4 Monocytes # 0.8 Eosinophils # 0.0 Basophils # 0.0 Nucleated Red 0.0 Blood Cells # Sodium Level 138 Potassium Level 3.9 Chloride Level 104 Carbon Dioxide 22 Level Anion Gap 12 Blood Urea 15 Nitrogen Creatinine 0.68 Est Glomerular Filtrat Rate mL/min Glucose Level 117 Calcium Level 8.3 L Total Bilirubin 0.5 Direct Bilirubin 0.00 Indirect Bilirubin 0.5 Aspartate Amino 94 H Transf (AST/SGOT) Alanine 38 Aminotransferase ( ALT/SGPT) Alkaline 69 Phosphatase Creatine Kinase 683 H Creatine Kinase 12.1 Index Creatinine Kinase 82.70 H MB (Mass) Troponin I 10.100 *H Total Protein 6.4 Albumin 3.4 Globulin 3.00 Albumin/Globulin 1.13 Ratio Thyroid Pending Stimulating Hormone (TSH) HPI/ROS Admit Date/Time Admit Date/Time Jan 15, 2019 at 01:24 Hx of Present Illness Chief complaint: Chest pain This is a 73-year-old male with a past medical history of hypertension, hyperlipidemia, prostate cancer who is presenting with chest pain and shortness of breath beginning a few hours ago. The patient endorses moderate left-sided pressure-like chest pain. He reports feeling short of breath as well. He is not diaphoretic. He is not lightheaded or dizzy. His shortness of breath was getting progressively worse, so an ambulance was called. The patient was reportedly oxygenating at 89% on room air and was started on a nonrebreather facemask in route to the hospital. The patient also endorses having a fever wi th chills. He denies a cough. Patient arrived to the emergency department he also was noted to have a fever of 100.5 and he was tachycardic at 113. He reported that time that his chest pain resolved. He does report that he follows up by [facility] regarding his prostate cancer. He is currently on Lupron injections. He states that for the past 2 months he was with a chronic Galvez catheter which was just removed a few days ago. He does report urinary frequency. Allergies: NKDA Medications: See DEC ROS Const: As per HPI Eyes : No pain discharge or redness or change in visual acuity ENT: No pain, sore throat, congestion, congestion, dysphagia or discharge Respiratory: No shortness of breath, cough, sputum, wheezing, or pleuritic pain Cardiovascular: As per HPI GI : no change in appetite, abdominal pain, nausea, vomiting, diarrhea, constipation, or change in the color his stool Genitourinary: As per HPI Musculoskeletal: No joint pain, back pain, neck pain, restricted range of motion in neck or joints Skin: No rash, bruising or hives Neuro: No headache, dizziness, syncope, seizure, focal weakness Endocrine: No polyuria, polydipsia, temperature intolerance Psych: No hallucination, depression, anxiety or suicidal ideation PMH/Family/Social Past Medical History Prostate cancer, hypertension, cardiomyopathy Medications Current Medications Ondansetron HCl (Zofran Inj) 4 mg ER BRIDGE PRN IV NAUSEA/VOMITING; Start 01/15/19 at 01:30; Stop 01/16/19 at 01:29 Acetaminophen (Tylenol Tab) 650 mg ER BRIDGE PRN PO .MILD PAIN 1-3 OR TEMP; Start 01/15/19 at 01:30; Stop 01/16/19 at 01:29 Sodium Chloride 1,000 ml @ 80 mls/hr [id number] IV Last administered on 01/15/19at 02:17; Admin Dose 80 MLS/HR; Start 01/15/19 at 01:28 IV Flush (NS 3 ml) 3 ml PER PROTOCOL IV ; Start 01/15/19 at 01:30 Ondansetron HCl (Zofran Inj) 4 mg Q6H PRN IV NAUSEA/VOMITING; Start 01/15/19 at 01:30 Nitroglycerin (Nitroglycerin (Sl Tab) 0.4 Mg) 1 tab Q5M PRN SL .CHEST PAIN; Start 01/15/19 at 01:30 Acetaminophen (Tylenol Tab) 650 mg Q6H PRN PO .PAIN 1-3 OR TEMP; Start 01/15/19 at 01:30 Morphine Sulfate (morphine) 1 mg Q4H PRN IV .PAIN 7-10; Start 01/15/19 at 01:30 Docusate Sodium (Colace) 100 mg Q12H PRN PO .CONSTIPATION; Start 01/15/19 at 01:30 Bisacodyl (Dulcolax) 5 mg DAILY PRN PO .CONSTIPATION; Start 01/15/19 at 01:30 Levofloxacin/ Dextrose 150 ml @ 100 mls/hr Q24H IVPB ; Start 01/15/19 at 23:00; Stop 01/19/19 at 22:59 Enoxaparin Sodium (Lovenox) 70 mg Q12 SC ; Start 01/15/19 at 13:00 Coded Allergies: No Known Allergy (Unverified , 08/21/15) Past Surgical History Past Surgical Hx: no surgical history Family History Significant Family History: no pertinent family hx, other Social History Alcohol Use: none Smoking Status: Never smoker Drug Use: none Exam/Review of Systems Vital Signs Vitals Vital Signs Date Temp Pulse Resp B/P (MAP) Pulse Ox O2 O2 Flow FiO2 Time Delivery Rate 01/15/19 77 08:00 01/15/19 97.5 18 110/60 91 Nasal 07:25 (77) Cannula 01/15/19 4.0 03:10 Intake and Output 01/14/19 01/14/19 01/15/19 1515:00 23:00 07:00 IntakeIntake Total 420 ml OutputOutput Total 675 ml BalanceBalance -255 ml Exam Exam General: Patient is a pleasant male currently lying in bed in no acute distress HEENT: Atraumatic, normocephalic. The pupils are equal, round and reactive. Extraocular motor are intact Neck: Supple with full range of motion. No rigidity or meningismus Chest: Nontender to palpation Lungs: Clear to auscultation bilaterally no crackles rales or wheezing Heart: Normal S1-S2, Regular rhythm and rate. No murmur, S3, or S4, currently chest pain-free Abdomen: Soft , nontender, nondistended , bowel sounds are present. No guarding no rebound tenderness , No masses or organomegaly. No costovertebral temporal angle mass Extremities: Normal to inspection, no edema no cyanosis Neurologic: Normal mental status, speech normal, cranial nerves II through XII are intact, motor and sensory are intact, Additional Comments EKG Rate/Rhythm: Sinus tachycardia at 113 bpm Intervals: Normal [place]: Left axis deviation. ST depressions in leads V3 through V6, concerning for an NSTEMI. Sinus tachycardia. PROCEDURE: CHEST - 1 VIEW CLINICAL INDICATION: 73-year-old male with chest pain and sepsis. TECHNIQUE: A single frontal AP semi-erect portable view of the chest was performed. The images were reviewed on a PACS workstation. COMPARISON: CT 11/19/2018; DR SINHA 11/18/2018 FINDINGS: The cardiomediastinal silhouette is within normal limits without significant interval change. The thoracic aortic arch is calcified. There is diffuse prominence of the interstitium with reticulonodular opacities within the lower lung zones bilaterally. The right costophrenic angle is incompletely visualized. There is no evidence for congestive heart failure. There is no evidence for pneumothorax. Degenerative changes are seen within the spine. IMPRESSION: 1. Calcified thoracic aortic arch. 2. Prominent interstitium with reticulonodular opacities within the lower lung zones bilaterally. 3. Degenerative changes within the spine. .Gordon Harris MD, Date Time Electronically viewed and signed by .Gordon Harris MD, MD on 01/15/2019 02:02 .M/ CC: OLEGARIO THOMSON MD [phone] Normal left ventricular systolic function. Normal left ventricular cavity size. Sigmoid septum. Moderate left ventricular systolic dysfunction. Ejection fraction is visually estimated at 35-40 %. Tissue Doppler/Mitral Doppler indices are consistent with impaired relaxation (Stage I diastolic dysfunction). These segments of the LV are hypokinetic mid anterior segment, inferoseptum mid segment, apex and apical septum. Mild mitral leaflet calcification. Mild mitral annular calcification. Mild mitral valve regurgitation. Mild to moderate aortic stenosis. Aortic valve Max velocity 2.77 m/sec. Max PG 2.01 mmHg. Mean PG 18.00 mmHg. Aortic valve area 1.41 cm2. Aortic cusps appear moderately calcified. Normal appearance of the tricuspid valve. Estimated peak PA systolic pressure 34 mmHg. There is mild tricuspid regurgitation. Pulmonic valve not well visualized. There is trace pulmonic regurgitation. Electronically Signed By: Karthik Lizarraga 2018-11-18 18:49:20 ERIK ALLISON Jan 15, 2019 08:57
--- NOTE | 2019-01-15 09:16 | PN ---
Date/Time of Note Date/Time of Note DATE: 01/15/19 TIME: 09:16 Assessment/Plan VTE Prophylaxis SCD applied (from Nsg): Yes Pharmacological prophylaxis: LMWH Lines/Catheters IV Catheter Type (from Nrsg): Saline Lock Urinary Cath still in place: No Assessment/Plan Assessment/Plan 1. NSTEMI - Cardiology consultation placed for further recommendations. Patient still with pain and trops trending up. Had lexiscan performed during last admission - ECHO from November 2018 shows an ejection fraction of roughly 35-40% with diastolic dysfunction. - continue morphine, nitro, and O2 PRN 2. Sepsis secondary to UTI - UA results noted. Will await urine cultures for sensitivities - Continue current antibiotic - may be catheter related given had one in place for 2 months 3. Urinary retention - will restart home medications and monitor output. Will avoid placing ricci if possible. Straight cath for now if experiencing discomfort 4. H/o Prostate cancer - follows with [facility] 5. HTN - continue home medications 6. CM - continue home medications 7. Disposition - Cardiology consulted for ACS workup. - Continue on antibiotics for UTI - replaced Result Diagram: 01/15/19 0604 01/15/19 0604 Results 24hrs Laboratory Tests Test 01/15/19 00:30 01/15/19 01:29 01/15/19 01:52 01/15/19 06:03 White Blood Count 13.7 #H Red Blood Count 3.42 L Hemoglobin 10.2 L Hematocrit 31.3 L Mean Corpuscular 91.5 Volume Mean Corpuscular 29.8 Hemoglobin Mean Corpuscular 32.6 Hemoglobin Concent Red Cell 13.6 Distribution Width Platelet Count 257 Mean Platelet 9.9 Volume Immature 0.500 H Granulocytes % Neutrophils % 84.8 H Lymphocytes % 7.2 L Monocytes % 7.3 Eosinophils % 0.1 Basophils % 0.1 Nucleated Red 0.0 Blood Cells % Immature 0.070 H Granulocytes # Neutrophils # 11.6 H Lymphocytes # 1.0 Monocytes # 1.0 H Eosinophils # 0.0 Basophils # 0.0 Nucleated Red 0.0 Blood Cells # Prothrombin Time 14.3 Prothrombin Time 1.1 Ratio INR International 1.10 Normalized Ratio Sodium Level 135 Potassium Level 4.0 Chloride Level 98 Carbon Dioxide 23 Level Anion Gap 14 H Blood Urea 17 Nitrogen Creatinine 0.78 Est Glomerular Filtrat Rate mL/min Glucose Level 134 Calcium Level 8.6 Troponin I 0.195 *H B-Type Natriuretic 520 H Peptide POC Venous Lactate 1.2 Urine Color STRAW Urine Clarity SLIGHTLY CLOUDY A Urine pH 6.0 Urine Specific 1.003 Drummonds Urine Ketones NEGATIVE Urine Nitrite POSITIVE A Urine Bilirubin NEGATIVE Urine Urobilinogen NEGATIVE Urine Leukocyte 3+ H Esterase Urine Microscopic 1 RBC Urine Microscopic 72 H WBC Urine Bacteria FEW A Urine Hemoglobin 2+ H Urine Glucose NEGATIVE Urine Total NEGATIVE Protein Lactic Acid Level 1.0 Test 01/15/19 06:04 White Blood Count 12.1 H Red Blood Count 3.16 L Hemoglobin 9.4 L Hematocrit 28.8 L Mean Corpuscular 91.1 Volume Mean Corpuscular 29.7 Hemoglobin Mean Corpuscular 32.6 Hemoglobin Concent Red Cell 13.7 Distribution Width Platelet Count 221 Mean Platelet 10.7 H Volume Immature 0.500 H Granulocytes % Neutrophils % 80.9 H Lymphocytes % 11.4 L Monocytes % 7.0 Eosinophils % 0.0 Basophils % 0.2 Nucleated Red 0.0 Blood Cells % Immature 0.060 H Granulocytes # Neutrophils # 9.8 H Lymphocytes # 1.4 Monocytes # 0.8 Eosinophils # 0.0 Basophils # 0.0 Nucleated Red 0.0 Blood Cells # Sodium Level 138 Potassium Level 3.9 Chloride Level 104 Carbon Dioxide 22 Level Anion Gap 12 Blood Urea 15 Nitrogen Creatinine 0.68 Est Glomerular Filtrat Rate mL/min Glucose Level 117 Hemoglobin A1c 6.1 H Calcium Level 8.3 L Total Bilirubin 0.5 Direct Bilirubin 0.00 Indirect Bilirubin 0.5 Aspartate Amino 94 H Transf (AST/SGOT) Alanine 38 Aminotransferase ( ALT/SGPT) Alkaline 69 Phosphatase Creatine Kinase 683 H Creatine Kinase 12.1 Index Creatinine Kinase 82.70 H MB (Mass) Troponin I 10.100 *H Total Protein 6.4 Albumin 3.4 Globulin 3.00 Albumin/Globulin 1.13 Ratio Thyroid 1.380 Stimulating Hormone (TSH) Subjective 24 Hr Interval Summary Free Text/Dictation Patient states hes still having chest pain but relived with Morphine. Denies any associated shortness of breath, nausea, vomiting, or LOC> Exam/Review of Systems Exam Vitals Vital Signs Date Temp Pulse Resp B/P (MAP) Pulse Ox O2 O2 Flow FiO2 Time Delivery Rate 01/15/19 77 08:00 01/15/19 97.5 18 110/60 91 Nasal 07:25 (77) Cannula 01/15/19 4.0 03:10 Intake and Output 01/14/19 01/14/19 01/15/19 1515:00 23:00 07:00 IntakeIntake Total 420 ml OutputOutput Total 675 ml BalanceBalance -255 ml Exam General: no acute distress Neck: Supple Chest: Nontender to palpation Lungs: Clear to auscultation bilaterally no crackles rales or wheezing Heart: Normal S1-S2, Regular rhythm and rate. No murmur, S3, or S4, currently chest pain-free Abdomen: Soft , nontender, nondistended , bowel sounds are present. No guarding no rebound tenderness , Extremities: Normal to inspection, no edema no cyanosis Results Results 24hrs Laboratory Tests Test 01/15/19 00:30 01/15/19 01:29 01/15/19 01:52 01/15/19 06:03 White Blood Count 13.7 #H Red Blood Count 3.42 L Hemoglobin 10.2 L Hematocrit 31.3 L Mean Corpuscular 91.5 Volume Mean Corpuscular 29.8 Hemoglobin Mean Corpuscular 32.6 Hemoglobin Concent Red Cell 13.6 Distribution Width Platelet Count 257 Mean Platelet 9.9 Volume Immature 0.500 H Granulocytes % Neutrophils % 84.8 H Lymphocytes % 7.2 L Monocytes % 7.3 Eosinophils % 0.1 Basophils % 0.1 Nucleated Red 0.0 Blood Cells % Immature 0.070 H Granulocytes # Neutrophils # 11.6 H Lymphocytes # 1.0 Monocytes # 1.0 H Eosinophils # 0.0 Basophils # 0.0 Nucleated Red 0.0 Blood Cells # Prothrombin Time 14.3 Prothrombin Time 1.1 Ratio INR International 1.10 Normalized Ratio Sodium Level 135 Potassium Level 4.0 Chloride Level 98 Carbon Dioxide 23 Level Anion Gap 14 H Blood Urea 17 Nitrogen Creatinine 0.78 Est Glomerular Filtrat Rate mL/min Glucose Level 134 Calcium Level 8.6 Troponin I 0.195 *H B-Type Natriuretic 520 H Peptide POC Venous Lactate 1.2 Urine Color STRAW Urine Clarity SLIGHTLY CLOUDY A Urine pH 6.0 Urine Specific 1.003 Drummonds Urine Ketones NEGATIVE Urine Nitrite POSITIVE A Urine Bilirubin NEGATIVE Urine Urobilinogen NEGATIVE Urine Leukocyte 3+ H Esterase Urine Microscopic 1 RBC Urine Microscopic 72 H WBC Urine Bacteria FEW A Urine Hemoglobin 2+ H Urine Glucose NEGATIVE Urine Total NEGATIVE Protein Lactic Acid Level 1.0 Test 01/15/19 06:04 White Blood Count 12.1 H Red Blood Count 3.16 L Hemoglobin 9.4 L Hematocrit 28.8 L Mean Corpuscular 91.1 Volume Mean Corpuscular 29.7 Hemoglobin Mean Corpuscular 32.6 Hemoglobin Concent Red Cell 13.7 Distribution Width Platelet Count 221 Mean Platelet 10.7 H Volume Immature 0.500 H Granulocytes % Neutrophils % 80.9 H Lymphocytes % 11.4 L Monocytes % 7.0 Eosinophils % 0.0 Basophils % 0.2 Nucleated Red 0.0 Blood Cells % Immature 0.060 H Granulocytes # Neutrophils # 9.8 H Lymphocytes # 1.4 Monocytes # 0.8 Eosinophils # 0.0 Basophils # 0.0 Nucleated Red 0.0 Blood Cells # Sodium Level 138 Potassium Level 3.9 Chloride Level 104 Carbon Dioxide 22 Level Anion Gap 12 Blood Urea 15 Nitrogen Creatinine 0.68 Est Glomerular Filtrat Rate mL/min Glucose Level 117 Hemoglobin A1c 6.1 H Calcium Level 8.3 L Total Bilirubin 0.5 Direct Bilirubin 0.00 Indirect Bilirubin 0.5 Aspartate Amino 94 H Transf (AST/SGOT) Alanine 38 Aminotransferase ( ALT/SGPT) Alkaline 69 Phosphatase Creatine Kinase 683 H Creatine Kinase 12.1 Index Creatinine Kinase 82.70 H MB (Mass) Troponin I 10.100 *H Total Protein 6.4 Albumin 3.4 Globulin 3.00 Albumin/Globulin 1.13 Ratio Thyroid 1.380 Stimulating Hormone (TSH) Medications Medication Current Medications Ondansetron HCl (Zofran Inj) 4 mg ER BRIDGE PRN IV NAUSEA/VOMITING; Start 01/15/19 at 01:30; Stop 01/16/19 at 01:29 Acetaminophen (Tylenol Tab) 650 mg ER BRIDGE PRN PO .MILD PAIN 1-3 OR TEMP; Start 01/15/19 at 01:30; Stop 01/16/19 at 01:29 Sodium Chloride 1,000 ml @ 80 mls/hr [id number] IV Last administered on 01/15/19at 02:17; Admin Dose 80 MLS/HR; Start 01/15/19 at 01:28 IV Flush (NS 3 ml) 3 ml PER PROTOCOL IV ; Start 01/15/19 at 01:30 Ondansetron HCl (Zofran Inj) 4 mg Q6H PRN IV NAUSEA/VOMITING; Start 01/15/19 at 01:30 Nitroglycerin (Nitroglycerin (Sl Tab) 0.4 Mg) 1 tab Q5M PRN SL .CHEST PAIN; Start 01/15/19 at 01:30 Acetaminophen (Tylenol Tab) 650 mg Q6H PRN PO .PAIN 1-3 OR TEMP; Start 01/15/19 at 01:30 Morphine Sulfate (morphine) 1 mg Q4H PRN IV .PAIN 7-10; Start 01/15/19 at 01:30 Docusate Sodium (Colace) 100 mg Q12H PRN PO .CONSTIPATION; Start 01/15/19 at 01:30 Bisacodyl (Dulcolax) 5 mg DAILY PRN PO .CONSTIPATION; Start 01/15/19 at 01:30 Levofloxacin/ Dextrose 150 ml @ 100 mls/hr Q24H IVPB ; Start 01/15/19 at 23:00; Stop 01/19/19 at 22:59 Enoxaparin Sodium (Lovenox) 70 mg Q12 SC ; Start 01/15/19 at 13:00 Aspirin (Halfprin) 81 mg DAILY PO ; Start 01/15/19 at 09:00 Lisinopril (Zestril) 10 mg BID PO ; Start 01/15/19 at 09:00 MATY DE LA FUENTE MD Jan 15, 2019 09:16
[2019-01-15] MEDS: ASPIRIN (EC) 81 MG TAB PO SCH (09:28)
[2019-01-15] MEDS: LISINOPRIL 10 MG TAB PO SCH ×2 (09:28→20:44)
[2019-01-15] MEDS: morphine 2 MG INJ IV PRN ×3 (10:21→23:30)
[2019-01-15] MEDS ORDERED: ENOXAPARIN 100 MG/ML SYG SC SCH ×2 (13:00)
--- NOTE | 2019-01-15 15:55 | CONS ---
DATE OF ADMISSION: 01/15/2019 DATE OF CONSULTATION: 01/15/2019 TYPE OF CONSULTATION: Cardiology. REASON FOR CONSULTATION: Non-ST myocardial infarction. REQUESTING PHYSICIAN: Fermin Lara MD, from the hospitalist service. HISTORY OF PRESENT ILLNESS: Mr. Lockhart is a 73-year-old male with a history of cardiomyopathy, dec reased left ventricular ejection fraction last EF approximately 35% to 40% by echo in 11/2018, hypert ension, dyslipidemia, prostate CA, hematuria, who presented with complaints of substernal chest pain of onset day prior to admission. Upon arrival, temperature was 100.5, blood pressure 135/71, pulse 1 13, respiration 20, satting 100%. The patient's labs were notable for white blood cell count of 13.7 , hemoglobin 10.2, platelet count of 257, a sodium of 135, potassium 4.0, creatinine 0.7, BUN of 17, troponin 0.195, BNP of 520, INR 1.1. UA positive. The patient underwent a chest x-ray revealing a c alcified thoracic aortic arch, prominence reticulonodular opacities noted in the lower lung zones delilah aterally, degenerative changes in the spine. The patient's electrocardiogram revealed sinus tachycar chin at 113, normal axis, borderline increased QT corrected interval with anterolateral deep ST depres sions. Given these findings, the patient has been admitted to the floor and since admit to floor the rapy had up trended troponins going from ____. The patient has been placed on Lovenox, receiving a d ose today as well as aspirin and beta-dana. PAST MEDICAL HISTORY: As above in HPI. MEDICATIONS CURRENTLY IN HOSPITAL: 1. Casodex. 2. Norvasc 10 mg daily. 3. Levofloxacin. 4. Flomax 0.4 mg b.i.d. 5. Hytrin 5 mg at bedtime. 6. Lipitor 5 mg at bedtime. 7. Metoprolol 25 mg p.o. b.i.d. 8. Lovenox 70 mg subcutaneously q.12. 9. Aspirin 81 mg a day. 10. Lisinopril 10 mg b.i.d. 11. Sublingual nitroglycerin p.r.n. 12. Tylenol p.r.n. 13. Colace p.r.n. 14. Morphine p.r.n. 15. IV fluid hydration of 80 mL an hour. ALLERGIES: NO KNOWN DRUG ALLERGIES. SOCIAL HISTORY: Positive tobacco. No EtOH or illicit drugs. FAMILY HISTORY: No history of current cardiac or early CAD. REVIEW OF SYSTEMS: As above in HPI. CONSTITUTIONAL: No fevers, chills. PULMONARY: Shortness of breath. CARDIOVASCULAR: Chest pain. GASTROINTESTINAL: No vomiting. GENITOURINARY: No hematuria. MUSCULOSKELETAL: Degenerative joint disease. PSYCHIATRIC: The patient has depression. NEUROLOGIC: No documented history of CVA. ENDOCRINE: No documented history of diabetes mellitus. PHYSICAL EXAMINATION: VITAL SIGNS: Temperature 98.5, blood pressure most recently 107/55, pulse 88, respiratory rate 16, s atting 98%. GENERAL: The patient is alert, awake, in no acute distress. NECK: JVP is approximately 8 to 9 cm of water. CHEST: Fair air movement throughout. HEART: Regular rate and rhythm. Normal S1, S2, I/ systolic murmur, nondisplaced PMI. ABDOMEN: Positive bowel sounds, soft. EXTREMITIES: No significant pitting edema, 1+ pulses bilateral posterior tibial. LABORATORIES: Most recently from today, white blood cell count 12.1, hemoglobin 9.4, platelet count 221. Sodium 138, potassium 3.9, creatinine 0.6, BUN 15. Troponin is up to 22. IMAGING STUDIES: As above in HPI. No further imaging studies for my review at this time. ELECTROCARDIOGRAM: As above in HPI. No further electrocardiograms for my review at this time. IMPRESSION: 1. Non-ST myocardial infarction with up trending cardiac enzymes. 2. Chest pain secondary to #1. 3. Abnormal electrocardiogram with anterolateral deep ST depressions. 4. Hypertension, under reasonable control. 5. Dyslipidemia. 6. Benign prostatic hypertrophy. 7. Prostate carcinoma. 8. History of hematuria recently. RECOMMENDATIONS: 1. At this time, we would maintain the patient on telemetry monitoring and possibly transfer to ICU. 2. Continue the patient's anticoagulation, but we would like ____ to heparin as this patient will re quire catheterization and may become emergent and therefore cannot assess the patient's coagulation s tatus with Lovenox very easily. 3. Continue the patient's current Norvasc and beta dana. 4. Continue the patient's statin and we will change to high dose statin. 5. Continue to trend the patient's cardiac enzymes, assess for significant ongoing damage and if con tinues to rise significantly, he will likely have to undergo cardiac catheterization today. Otherwis e, the patient will be placed in for cardiac catheterization to take place first thing tomorrow beulah stephen. 6. Additionally, continue his aspirin. Continue to check serial EKGs. Thank you for allowing me to take part in the care of this patient. I will continue to follow him ve ry closely with you with further recommendations will be made as the patient progresses through his [facility] clinical course. Dictated By: NEFTALI JACKSON/ZAY Conf#: [id number] DID#: [id number] CC: FERMIN LARA MD; MATY DE LA FUENTE MD;*End*
[2019-01-15] MEDS: TAMSULOSIN (SR) 0.4 MG CAP PO SCH (20:43)
[2019-01-15] MEDS: ATORVASTATIN 40 MG TAB PO SCH (20:43)
[2019-01-15] MEDS: METOPROLOL 25 MG TAB PO SCH (20:44)
[2019-01-15] MEDS ORDERED: TERAZOSIN 5 MG CAP PO SCH (21:00)
[2019-01-15] MEDS ORDERED: HEPARIN 1000 UNITS/ML 10 ML INJ IV ONE (22:00)
[2019-01-15] MEDS ORDERED: HEPARIN 25000 UNITS/250 ML 250 ML IV SCH (22:00)
[2019-01-15] MEDS ORDERED: HEPARIN 1000 UNITS/ML 10 ML INJ IV PRN (22:00)
[2019-01-15] MEDS ORDERED: LEVOFLOXACIN 750MG/D5W (PMX) 150 ML IVPB SCH (23:00)
[2019-01-16] VITALS (51 sets, daily range): BP systolic 78–129; BP diastolic 33–67; PULSE 72–115; RESP 15–30; TEMP 97.7–99.6
[2019-01-16] MEDS ORDERED: FUROSEMIDE 40 MG INJ IV ONE
[2019-01-16] MEDS: NITROGLYCERIN (SL) 0.4 MG TAB SL PRN (00:19)
[2019-01-16] MEDS ORDERED: NITROGLYCERIN 0.3 MG/HR PATCH TRANSDERM ONE (01:00)
[2019-01-16] MEDS: NITROGLYCERIN 2% 1 GM OINT PKT TD SCH ×3 (01:23→14:00)
[2019-01-16] MEDS ORDERED: DIPHENHYDRAMINE 50 MG CAP PO ONE (06:00)
[2019-01-16] MEDS ORDERED: DIAZEPAM 5 MG TAB PO ONE (06:00)
[2019-01-16] MEDS: ALBUMIN HUMAN 25% 100 ML IV SCH ×2 (06:43→07:50)
[2019-01-16] MEDS: ASPIRIN (EC) 81 MG TAB PO SCH (08:00)
[2019-01-16] MEDS: TAMSULOSIN (SR) 0.4 MG CAP PO SCH ×2 (08:00→20:52)
[2019-01-16] MEDS: METOPROLOL 25 MG TAB PO SCH (08:01)
[2019-01-16] MEDS: LISINOPRIL 10 MG TAB PO SCH (08:02)
[2019-01-16] MEDS ORDERED: AMLODIPINE 10 MG TAB PO SCH (09:00)
[2019-01-16] MEDS: BICALUTAMIDE 50 MG TAB PO SCH (09:00)
[2019-01-16] MEDS ORDERED: HEPARIN 1000 UNITS/ML 10 ML INJ ONE ×9 (09:35→15:15)
[2019-01-16] MEDS ORDERED: FENTAnyl 50 MCG/ML VIAL ONE (09:35)
[2019-01-16] MEDS ORDERED: NITROGLYCERIN (IC) 100 MCG/ML INJ ONE (09:35)
[2019-01-16] MEDS ORDERED: LIDOCAINE 1% (MDV) 20 ML INJ ONE (09:35)
[2019-01-16] MEDS ORDERED: VERAPAMIL 5 MG INJ ONE (09:35)
[2019-01-16] MEDS ORDERED: MIDAZOLAM 1 MG/ML 2 ML INJ ONE (09:35)
[2019-01-16] MEDS ORDERED: IODIXANOL LOCM 100 ML BTL ONE (09:35)
[2019-01-16] MEDS ORDERED: SOD CHLORIDE 0.9% 500 ML ONE (09:36)
[2019-01-16] MEDS ORDERED: FUROSEMIDE 40 MG INJ ONE (10:30)
--- NOTE | 2019-01-16 10:54 | PN ---
Date/Time of Note Date/Time of Note DATE: 01/16/19 TIME: 10:54 Objective Vitals Vital Signs Date Temp Pulse Resp B/P (MAP) Pulse Ox O2 O2 Flow FiO2 Time Delivery Rate 01/16/19 79 17 92/53 (66) 97 High Flow 09:00 01/16/19 98.1 08:00 01/16/19 30 07:49 01/16/19 5.0 00:15 Intake and Output 01/15/19 01/15/19 01/16/19 1414:59 22:59 06:59 IntakeIntake Total 600 ml 190 ml OutputOutput Total 250 ml 300 ml BalanceBalance 350 ml -110 ml Results Result Diagram: 01/16/197 01/16/19436 Medications Medications Current Medications IV Flush (NS 3 ml) 3 ml PER PROTOCOL IV ; Start 01/15/19 at 01:30 Ondansetron HCl (Zofran Inj) 4 mg Q6H PRN IV NAUSEA/VOMITING; Start 01/15/19 at 01:30 Nitroglycerin (Nitroglycerin (Sl Tab) 0.4 Mg) 1 tab Q5M PRN SL .CHEST PAIN Last administered on 01/16/19at 00:19; Admin Dose 1 TAB; Start 01/15/19 at 01:30 Acetaminophen (Tylenol Tab) 650 mg Q6H PRN PO .PAIN 1-3 OR TEMP; Start 01/15/19 at 01:30 Morphine Sulfate (morphine) 1 mg Q4H PRN IV .PAIN 7-10 Last administered on 01/15/19at 23:30; Admin Dose 1 MG; Start 01/15/19 at 01:30 Docusate Sodium (Colace) 100 mg Q12H PRN PO .CONSTIPATION; Start 01/15/19 at 01:30 Bisacodyl (Dulcolax) 5 mg DAILY PRN PO .CONSTIPATION; Start 01/15/19 at 01:30 Levofloxacin/ Dextrose 150 ml @ 100 mls/hr Q24H IVPB Last administered on at 23:12; Admin Dose 100 MLS/HR; Start 01/15/19 at 23:00; Stop 01/19/19 at 22:59 Aspirin (Halfprin) 81 mg DAILY PO Last administered on 01/16/19at 08:00; Admin Dose 81 MG; Start 01/15/19 at 09:00 Lisinopril (Zestril) 10 mg BID PO Last administered on 01/15/19at 20:44; Admin Dose 10 MG; Start 01/15/19 at 09:00 Bicalutamide (Casodex) 50 mg DAILY PO ; Start 01/16/19 at 09:00 Tamsulosin HCl (Flomax) 0.4 mg BID PO Last administered on 01/16/19at 08:00; Admin Dose 0.4 MG; Start 01/15/19 at 21:00 Terazosin HCl (Hytrin) 5 mg HS PO Last administered on 01/15/19at 20:43; Admin Dose 5 MG; Start 01/15/19 at 21:00 Amlodipine Besylate (Norvasc) 10 mg DAILY PO ; Start 01/16/19 at 09:00 Atorvastatin Calcium (Lipitor) 40 mg HS PO Last administered on 01/15/19at 20:43; Admin Dose 40 MG; Start 01/15/19 at 21:00 Metoprolol Tartrate (Lopressor) 25 mg BID PO Last administered on 01/15/19at 20:44; Admin Dose 25 MG; Start 01/15/19 at 21:00 Heparin Sodium (Porcine) (Heparin (1000 Units/ml)) 4,000 unit PER PROTOCOL PRN I V aPTT<47; Start 01/15/19 at 22:00 Heparin Sodium (Porcine) 250 ml @ 8 mls/hr PER PROTOCOL IV Last administered on 01/15/19at 22:10; Admin Dose 8 MLS/HR; Start 01/15/19 at 22:00 Nitroglycerin (Nitroglycerin 2% Oint) 0.5 inch Q8 TD Last administered on 01/16/19at 01:23; Admin Dose 0.5 INCH; Start 01/16/19 at 01:00 Insulin Human Regular 100 unit/ Sodium Chloride 100 ml @ 0 mls/hr Q0M ONCE IVPB ; Start 01/16/19 at 11:00; Stop 01/16/19 at 11:01 Norepinephrine 250 ml @ 0 mls/hr ONCE ONCE IV ; Start 01/16/19 at 11:00; Stop 01/16/19 at 11:01 Epinephrine 4 mg/ Dextrose 250 ml @ 0 mls/hr Q0M ONCE IV ; Start 01/16/19 at 11:00; Stop 01/16/19 at 11:01 Phenylephrine HCl 250 ml @ 0 mls/hr ONCE ONCE IV ; Start 01/16/19 at 11:00; Stop 01/16/19 at 11:01 Aspirin (Aspirin) 600 mg ONCE ONCE SD ; Start 01/16/19 at 11:00; Stop 01/16/19 at 11:01 Heparin Sodium (Porcine) 14899 unit/Milrinone Lactate 10 mg/ Sodium Chloride 1,011 ml @ 0 mls/hr ONCE ONCE SC ; Start 01/16/19 at 11:00; Stop 01/16/19 at 11:01 Milrinone Lactate 2 mg/Sodium Chloride 52 ml @ 0 mls/hr ONCE ONCE IV ; Start 01/16/19 at 11:00; Stop 01/16/19 at 11:01 VTE Pro[place]axis [place] [facility] [place] risk: 6 [place]CD [place] [facility] [place] Yes Lines/Catheters IV Catheter Type: Ricci in Place: No Assessment/Plan Hospital Course Subjective Patient was taken to [facility] this morning however had a cardiac arrest and is now currently being transferred for emergent cardiothoracic surgery Objective Unable to assess at this time as patient is currently in surgery A/P Cardiopulmonary arrest -during cardic cath -now in emergency open heart surgery NSTEMI -Cardiology on board -Patient had cardiac arrest during cardiac cath and is currently now in emergent open heart surgery - ECHO from November 2018 shows an ejection fraction of roughly 35-40% with diastolic dysfunction. - continue morphine, nitro, and O2 PRN 2. Sepsis secondary to UTI - UA results noted. Will await urine cultures for sensitivities - Continue current antibiotic - may be catheter related given had one in place for 2 months -ID consulted Bacteremia -Gram-negative david, possible UTI source, infectious disease consulted, continue IV antibiotic 3. Urinary retention - will restart home medications and monitor output. Will avoid placing ricci if possible. Straight cath for now if experiencing discomfort 4. H/o Prostate cancer - follows with [facility] 5. HTN - continue home medications 6. CM - continue home medications 7. Disposition - Cardiology consulted for ACS workup. - Continue on antibiotics for UTI - will update progress note once able to assess patient as patient in surgery PONCHO PEREYRA Jan 16, 2019 10:54
[2019-01-16] MEDS ORDERED: SOD CHLORIDE 0.9% 1,000 ML IV SCH (10:59)
--- NOTE | 2019-01-16 10:59 | SIPON ---
Date/Time of Note Date/Time of Note DATE: 01/16/19 TIME: 10:57 Operative Report Preoperative Diagnosis 1. chest pain 2.NSTEMI Postoperative Diagnosis 1.obstructive cad multivessel Operation/Procedure Performed 1.C 2.Insertion IABP Surgeon see signature line painter assistant 1.Evan Anesthesia: moderate sedation Estimated blood loss: minimal Transfusion Required none Specimen none Grafts/Implants none Complications none NEFTALI LYNN Jan 16, 2019 10:59
[2019-01-16] MEDS ORDERED: INSULIN HUMAN REGULAR 100 UNIT in SOD CHLORIDE 0.9% 99 ML IVPB ONE (11:00)
[2019-01-16] MEDS ORDERED: INSULIN REGULAR, HUMAN 100 UNIT/1 ML 3ML VIAL ONE (11:00)
[2019-01-16] MEDS ORDERED: HEPARIN (10000 UNITS/ML) 10,000 UNIT, MILRINONE LACTATE 10 MG in SOD CHLORIDE 0.9% 1,00... SC ONE (11:00)
[2019-01-16] MEDS ORDERED: MILRINONE LACTATE 20 MG/D5W 100 ML BAG ONE (11:00)
[2019-01-16] MEDS ORDERED: EPINEPHrine 4 MG in DEXTROSE 5% 246 ML IV ONE (11:00)
[2019-01-16] MEDS ORDERED: DOPamine-D5W 1.6 MG/ML 250 ML ONE (11:00)
[2019-01-16] MEDS ORDERED: PHENYLephrine 20MG IN 250 ML 250 ML IV ONE (11:00)
[2019-01-16] MEDS ORDERED: AL HYDROX/MG HYDROX/SIMETH 30 ML CUP PO PRN (11:00)
[2019-01-16] MEDS ORDERED: OXYCODONE/ACETAMINOPHEN (5/325) TAB PO PRN ×3 (11:00→17:30)
[2019-01-16] MEDS ORDERED: NORepinephrine 8MG/250 ML (PMX 250 ML IV ONE (11:00)
[2019-01-16] MEDS ORDERED: ASPIRIN 600 MG SUPP PR ONE (11:00)
[2019-01-16] MEDS ORDERED: ONDANSETRON 4 MG INJ IV PRN ×2 (11:00→17:30)
[2019-01-16] MEDS ORDERED: ACETAMINOPHEN 325 MG TAB PO PRN (11:00)
[2019-01-16] MEDS ORDERED: MILRINONE LACTATE 2 MG in SOD CHLORIDE 0.9% 50 ML IV ONE (11:00)
[2019-01-16] MEDS ORDERED: NITROGLYCERIN 50 MG/D5W 250 ML BTL ONE (11:00)
--- NOTE | 2019-01-16 11:09 | CONS ---
Assessment/Plan Assessment/Plan Hospital Course (Demo Recall) IMPRESSION: 1. Non-ST myocardial infarction with up trending cardiac enzymes.-overnight and then this am patient with uptrending cardiac enzymes. Now s/p LHC with mutivessel CAD and enmergent echo with decreased EF 30-35% 2. Chest pain secondary to #1.-ongoing 3. Abnormal electrocardiogram with anterolateral deep ST depressions. 4. Hypertension-currently borderline hypotension 5. Dyslipidemia. 6. Benign prostatic hypertrophy. 7. Prostate carcinoma. 8. History of hematuria recently. 9. CHF-systolic acute Recc: -ICU -IABP at 1:1 augmentation -TO OR emergently for CABG surgery -Lasix diuresis Consultation Date/Type/Reason Admit Date/Time Jan 15, 2019 at 01:24 Initial Consult Date 01/15/19 Type of Consult Cardiology Reason for Consultation Nstemi Requesting Provider: ERIK LARA Date/Time of Note DATE: 01/16/19 TIME: 11:03 Exam/Review of Systems Vital Signs Vitals Vital Signs Date Temp Pulse Resp B/P (MAP) Pulse Ox O2 O2 Flow FiO2 Time Delivery Rate 01/16/19 79 17 92/53 (66) 97 High Flow 09:00 01/16/19 98.1 08:00 01/16/19 30 07:49 01/16/19 5.0 00:15 Intake and Output 01/15/19 01/15/19 01/16/19 1515:00 23:00 07:00 IntakeIntake Total 600 ml 197.5 ml OutputOutput Total 250 ml 425 ml BalanceBalance 350 ml -227.5 ml Exam Exam Review of Systems: CONSTITUTIONAL: No fevers, chills. PULMONARY: positive sob CARDIOVASCULAR: posiitive chest pain GASTROINTESTINAL: No nausea/vomiting. GENITOURINARY: No hematuria/dysuria. MUSCULOSKELETAL: No myagias/arthalgias. PSYCHIATRIC: The patient denies depression. NEUROLOGIC: No weakness Constitutional: alert Psych: no complaints Head: normocephalic ENMT: mucosa pink and moist Neck: supple, jvd (9 cm water) Respiratory: diminished breath sounds (at base/B) Cardiovascular: other (tachycardic) Gastrointestinal: soft, non-tender Musculoskeletal: muscle tone (normal) Extremities: edema (trace/B) Neurological: other (No focal deficits) Labs Result Diagram: 01/16/19 0437 01/16/19 0437 Results 24hrs Laboratory Tests Test 01/15/19 12:15 01/15/19 16:00 01/15/19 23:44 01/16/19 00:31 Creatine Kinase 982 H 890 H 982 H Creatine Kinase 10.9 8.4 8.2 Index Creatinine 107.00 H 74.60 H 80.70 H Kinase MB (Mass) Troponin I 22.600 *H 15.700 *H 23.700 *H White Blood 12.5 H Count Red Blood Count 3.35 L Hemoglobin 10.1 L Hematocrit 30.8 L Mean Corpuscular 91.9 Volume Mean Corpuscular 30.1 Hemoglobin Mean Corpuscular 32.8 Hemoglobin Bailee nt Red Cell 13.8 Distribution Width Platelet Count 213 Mean Platelet 10.1 Volume Immature 0.800 H Granulocytes % Neutrophils % 87.2 H Lymphocytes % 5.7 L Monocytes % 6.1 Eosinophils % 0.0 Basophils % 0.2 Nucleated Red 0.0 Blood Cells % Immature 0.100 H Granulocytes # Neutrophils # 10.9 H Lymphocytes # 0.7 L Monocytes # 0.8 Eosinophils # 0.0 Basophils # 0.0 Nucleated Red 0.0 Blood Cells # Prothrombin Time 16.1 H Prothrombin Time 1.3 Ratio INR 1.28 International Normalized Ratio Activated 55.7 H Partial Thrombop last Time Blood Gas Blood arterial Specimen Source Arterial Blood 01/16/2019 12:00:2 Date Drawn 9 AM Arterial Blood 7.475 H pH (Temp corrected) Arterial Blood 28.7 L pCO2 (Temp correct) Arterial Blood 43.8 *L pO2 (Temp corrected) Arterial Blood 20.7 L HCO3 Arterial Blood -2.0 Base Excess Arterial Blood 81.5 L Oxygen Saturatio n Daniel Test ACCEPTAB Arterial Blood Right Radial Gas Puncture Site Arterial 0.2 Blood Carboxyhem oglobin Arterial Blood 0.3 Methemoglobin Blood Gas A-a O2 179.6 H Differential Oxyhemoglobin 81.1 L Percent Blood Gas 37.0 Temperature Blood Gas NASAL CANNULA Modality FiO2 36.0 Blood Gas Elise LARA MD Critical Value Read Back Blood Gas RAKESH Notified Whom Blood Gas 01/16/2019 12:11:5 Notified Time 5 AM Test 01/16/19 02:00 01/16/19 04:37 Blood Gas Blood arterial Specimen Source Arterial Blood 01/16/2019 2:00:16 Date Drawn AM Arterial Blood 7.519 H pH (Temp corrected) Arterial Blood 27.2 L pCO2 (Temp correct) Arterial Blood 240.4 H pO2 (Temp corrected) Arterial Blood 21.7 L HCO3 Arterial Blood -0.4 Base Excess Arterial Blood 98.9 Oxygen Saturatio n Daniel Test ACCEPTAB Arterial Blood Right Radial Gas Puncture Site Arterial 0.1 Blood Carboxyhem oglobin Arterial Blood 0 Methemoglobin Blood Gas A-a O2 445.4 H Differential Oxyhemoglobin 98.8 Percent Blood Gas 37.0 Temperature Blood Gas HFNC Modality FiO2 100.0 Blood Gas MA Notified Whom Blood Gas 01/16/2019 2:22:55 Notified Time AM White Blood 9.6 # Count Red Blood Count 3.04 L Hemoglobin 9.1 L Hematocrit 27.8 L Mean Corpuscular 91.4 Volume Mean Corpuscular 29.9 Hemoglobin Mean Corpuscular 32.7 Hemoglobin Bailee nt Red Cell 13.8 Distribution Width Platelet Count 192 Mean Platelet 10.8 H Volume Immature 0.600 H Granulocytes % Neutrophils % 84.2 H Lymphocytes % 7.9 L Monocytes % 7.1 Eosinophils % 0.0 Basophils % 0.2 Nucleated Red 0.0 Blood Cells % Immature 0.060 H Granulocytes # Neutrophils # 8.1 H Lymphocytes # 0.8 Monocytes # 0.7 Eosinophils # 0.0 Basophils # 0.0 Nucleated Red 0.0 Blood Cells # Prothrombin Time 16.0 H Prothrombin Time 1.3 Ratio INR 1.27 International Normalized Ratio Activated 79.3 *H Partial Thrombop last Time Sodium Level 135 Potassium Level 4.1 Chloride Level 102 Carbon Dioxide 23 Level Anion Gap 10 Blood Urea 21 H Nitrogen Creatinine 0.93 Est Glomerular Filtrat Rate mL/min Glucose Level 143 Calcium Level 8.1 L Total Bilirubin 0.3 Direct Bilirubin 0.00 Indirect 0.3 Bilirubin Aspartate Amino 202 #H Transf (AST/SGOT ) Alanine 45 Aminotransferase (ALT/SGPT) Alkaline 64 Phosphatase Creatine Kinase 1184 H Creatine Kinase 8.9 Index Creatinine 105.00 H Kinase MB (Mass) Troponin I 53.300 *H Total Protein 6.0 L Albumin 3.1 L Globulin 2.90 Albumin/Globulin 1.06 Ratio Medications Medications Current Medications IV Flush (NS 3 ml) 3 ml PER PROTOCOL IV ; Start 01/15/19 at 01:30 Ondansetron HCl (Zofran Inj) 4 mg Q6H PRN IV NAUSEA/VOMITING; Start 01/15/19 at 01:30 Nitroglycerin (Nitroglycerin (Sl Tab) 0.4 Mg) 1 tab Q5M PRN SL .CHEST PAIN Last administered on 01/16/19at 00:19; Admin Dose 1 TAB; Start 01/15/19 at 01:30 Acetaminophen (Tylenol Tab) 650 mg Q6H PRN PO .PAIN 1-3 OR TEMP; Start 01/15/19 at 01:30 Morphine Sulfate (morphine) 1 mg Q4H PRN IV .PAIN 7-10 Last administered on 01/15/19at 23:30; Admin Dose 1 MG; Start 01/15/19 at 01:30 Docusate Sodium (Colace) 100 mg Q12H PRN PO .CONSTIPATION; Start 01/15/19 at 01:30 Bisacodyl (Dulcolax) 5 mg DAILY PRN PO .CONSTIPATION; Start 01/15/19 at 01:30 Levofloxacin/ Dextrose 150 ml @ 100 mls/hr Q24H IVPB Last administered on 01/15/19at 23:12; Admin Dose 100 MLS/HR; Start 01/15/19 at 23:00; Stop 01/19/19 at 22:59 Aspirin (Halfprin) 81 mg DAILY PO Last administered on 01/16/19at 08:00; Admin Dose 81 MG; Start 01/15/19 at 09:00 Lisinopril (Zestril) 10 mg BID PO Last administered on 01/15/19at 20:44; Admin Dose 10 MG; Start 01/15/19 at 09:00 Bicalutamide (Casodex) 50 mg DAILY PO ; Start 01/16/19 at 09:00 Tamsulosin HCl (Flomax) 0.4 mg BID PO Last administered on 01/16/19at 08:00; Admin Dose 0.4 MG; Start 01/15/19 at 21:00 Terazosin HCl (Hytrin) 5 mg HS PO Last administered on 01/15/19at 20:43; Admin Dose 5 MG; Start 01/15/19 at 21:00 Amlodipine Besylate (Norvasc) 10 mg DAILY PO ; Start 01/16/19 at 09:00 Atorvastatin Calcium (Lipitor) 40 mg HS PO Last administered on 01/15/19at 20:43; Admin Dose 40 MG; Start 01/15/19 at 21:00 Metoprolol Tartrate (Lopressor) 25 mg BID PO Last administered on 01/15/19at 20:44; Admin Dose 25 MG; Start 01/15/19 at 21:00 Heparin Sodium (Porcine) (Heparin (1000 Units/ml)) 4,000 unit PER PROTOCOL PRN IV aPTT<47; Start 01/15/19 at 22:00 Heparin Sodium (Porcine) 250 ml @ 8 mls/hr PER PROTOCOL IV Last administered on 01/15/19at 22:10; Admin Dose 8 MLS/HR; Start 01/15/19 at 22:00 Nitroglycerin (Nitroglycerin 2% Oint) 0.5 inch Q8 TD Last administered on 01/16/19at 01:23; Admin Dose 0.5 INCH; Start 01/16/19 at 01:00 Insulin Human Regular 100 unit/ Sodium Chloride 100 ml @ 0 mls/hr Q0M ONCE IVPB ; Start 01/16/19 at 11:00; Stop 01/16/19 at 11:01 Norepinephrine 250 ml @ 0 mls/hr ONCE ONCE IV ; Start 01/16/19 at 11:00; Stop 01/16/19 at 11:01 Epinephrine 4 mg/ Dextrose 250 ml @ 0 mls/hr Q0M ONCE IV ; Start 01/16/19 at 11:00; Stop 01/16/19 at 11:01 Phenylephrine HCl 250 ml @ 0 mls/hr ONCE ONCE IV ; Start 01/16/19 at 11:00; Stop 01/16/19 at 11:01 Aspirin (Aspirin) 600 mg ONCE ONCE NM ; Start 01/16/19 at 11:00; Stop 01/16/19 at 11:01 Heparin Sodium (Porcine) 66121 unit/Milrinone Lactate 10 mg/ Sodium Chloride 1,011 ml @ 0 mls/hr ONCE ONCE SC ; Start 01/16/19 at 11:00; Stop 01/16/19 at 11:01 Milrinone Lactate 2 mg/Sodium Chloride 52 ml @ 0 mls/hr ONCE ONCE IV ; Start 01/16/19 at 11:00; Stop 01/16/19 at 11:01 NEFTALI LYNN Jan 16, 2019 11:09
[2019-01-16] MEDS ORDERED: MIDAZOLAM 5 ML ONE ×2 (11:14→13:41)
[2019-01-16] MEDS ORDERED: PAPAVERINE 60 MG INJ ONE (11:20)
[2019-01-16] MEDS ORDERED: VANCOMYCIN 1 GM INJ ONE ×2 (11:20→12:41)
--- NOTE | 2019-01-16 11:23 | PREAC ---
Date/Time of Note Date/Time of Note DATE: 01/16/19 TIME: 11:21 Anesthesia Eval and Record Evaluation Time Pre-Procedure Interview DATE: 01/16/19 TIME: 11:21 Age 73 Sex male NPO: 8 hrs Preoperative diagnosis CAD, IA Planned procedure CABG Past Medical History Past Medical History: Includes Cardio: HTN, Dyslipidemia Endo: Diabetes Pulm: Smoking Hx, COPD GI: GERD, Obesity Surgery & Anesthesia Issues No known issue Meds Anticoagulation: Yes Beta Denisa within 24 hr: Yes Active Scripts Sennosides/Docusate Sodium (Dok Plus Tablet) 1 Each Tablet, 2 TAB PO HS for 10 Days, #10 TAB 4 Refills Prov:ROMY ZAMORA MD 11/22/18 Acetaminophen* (Tylenol*) 325 Mg Tablet, 650 MG PO Q6H PRN for .PAIN 1-3 OR TEMP for 10 Days, TAB Prov:ROMY ZAMORA MD 11/22/18 Atorvastatin* (Atorvastatin*) 40 Mg Tablet, 40 MG PO HS for 30 Days, #30 TAB Prov:ROMY ZAMORA MD 11/22/18 Tamsulosin Hcl* (Flomax*) 0.4 Mg Cap.er.24h, 0.4 MG PO BID for 14 Days, #30 CAP Prov:ROMY ZAMORA MD 11/22/18 Bicalutamide* (Casodex*) 50 Mg Tablet, 50 MG PO DAILY for 14 Days, #15 TAB Prov:ROMY ZAMORA MD 11/22/18 Reported Medications Mirabegron (Myrbetriq) 50 Mg Tab.er.24h, 25 MG PO DAILY, TAB 11/18/18 Lisinopril* (Lisinopril*) 10 Mg Tablet, 10 MG PO BID, #30 TAB 11/18/18 Esomeprazole Mag Trihydrate (Nexium) 40 Mg Capsule.dr, 40 MG PO DAILY, #30 CAP 11/18/18 Terazosin Hcl* (Terazosin Hcl*) 5 Mg Capsule, 5 MG PO HS, CAP 11/18/18 Fluticasone Propionate (Flonase Allergy Relief) 9.9 Ml [place].susp, 1 SPRAY NASAL DAILY, #1 BOTTLE TO EACH NOSTRIL 11/18/18 Metoprolol Tartrate* (Lopressor*) 25 Mg Tablet, 25 MG PO BID, #60 TAB 11/18/18 Aspirin* (Aspirin* EC) 81 Mg Tablet.dr, 81 MG PO DAILY, TAB 11/18/18 Amlodipine Besylate* (Amlodipine Besylate*) 10 Mg Tablet, 10 MG PO DAILY, #30 TAB 11/18/18 Current Medications IV Flush (NS 3 ml) 3 ml PER PROTOCOL IV ; Start 01/15/19 at 01:30 Nitroglycerin (Nitroglycerin (Sl Tab) 0.4 Mg) 1 tab Q5M PRN SL .CHEST PAIN Last administered on 01/16/19at 00:19; Admin Dose 1 TAB; Start 01/15/19 at 01:30 Acetaminophen (Tylenol Tab) 650 mg Q6H PRN PO .PAIN 1-3 OR TEMP; Start 01/15/19 at 01:30 Morphine Sulfate (morphine) 1 mg Q4H PRN IV .PAIN 7-10 Last administered on 01/15/19at 23:30; Admin Dose 1 MG; Start 01/15/19 at 01:30 Docusate Sodium (Colace) 100 mg Q12H PRN PO .CONSTIPATION; Start 01/15/19 at 01:30 Bisacodyl (Dulcolax) 5 mg DAILY PRN PO .CONSTIPATION; Start 01/15/19 at 01:30 Aspirin (Halfprin) 81 mg DAILY PO Last administered on 01/16/19at 08:00; Admin Dose 81 MG; Start 01/15/19 at 09:00 Lisinopril (Zestril) 10 mg BID PO Last administered on 01/15/19at 20:44; Admin Dose 10 MG; Start 01/15/19 at 09:00 Bicalutamide (Casodex) 50 mg DAILY PO ; Start 01/16/19 at 09:00 Tamsulosin HCl (Flomax) 0.4 mg BID PO Last administered on 01/16/19at 08:00; Admin Dose 0.4 MG; Start 01/15/19 at 21:00 Terazosin HCl (Hytrin) 5 mg HS PO Last administered on 01/15/19at 20:43; Admin Dose 5 MG; Start 01/15/19 at 21:00 Amlodipine Besylate (Norvasc) 10 mg DAILY PO ; Start 01/16/19 at 09:00 Atorvastatin Calcium (Lipitor) 40 mg HS PO Last administered on 01/15/19at 20:43; Admin Dose 40 MG; Start 01/15/19 at 21:00 Metoprolol Tartrate (Lopressor) 25 mg BID PO Last administered on 01/15/19at 20:44; Admin Dose 25 MG; Start 01/15/19 at 21:00 Heparin Sodium (Porcine) (Heparin (1000 Units/ml)) 4,000 unit PER PROTOCOL PRN IV aPTT<47; Start 01/15/19 at 22:00 Heparin Sodium (Porcine) 250 ml @ 8 mls/hr PER PROTOCOL IV Last administered on 01/15/19at 22:10; Admin Dose 8 MLS/HR; Start 01/15/19 at 22:00 Nitroglycerin (Nitroglycerin 2% Oint) 0.5 inch Q8 TD Last administered on 01/16/19at 01:23; Admin Dose 0.5 INCH; Start 01/16/19 at 01:00 Miscellaneous Information (* Miscellaneous Pharmacy Order) Hold all Metformin ... ONCE XX ; Start 01/16/19 at 11:00; Stop 01/18/19 at 10:59 Acetaminophen (Tylenol Tab) 650 mg Q4H PRN PO PAIN; Start 01/16/19 at 11:00 Oxycodone/ Acetaminophen (Percocet (5/ 325)) 1 tab Q4H PRN PO PAIN; Start 01/16/19 at 11:00 Al Hydrox/Mg Hydrox/Simethicone (Mag-Al Plus) 30 ml Q4H PRN PO GASTROINTESTINAL UPSET; Start 01/16/19 at 11:00 Ondansetron HCl (Zofran Inj) 4 mg Q4H PRN IV NAUSEA AND/OR VOMITING; Start 01/16/19 at 11:00 Sodium Chloride 1,000 ml @ 75 mls/hr [id number] IV ; Start 01/16/19 at 10:59; Stop 01/17/19 at 00:18 Meropenem/Sodium Chloride 50 ml @ 100 mls/hr Q12 IVPB ; Start 01/16/19 at 21:00 Vancomycin HCl (Vanco Iv Per Pharmacy) VANCOMYCIN PER PHARMACY PER PROTOCOL XX ; Start 01/16/19 at 11:30 Meds reviewed: Yes Allergies Coded Allergies: No Known Allergy (Unverified , 11/11/15) Allergies Reviewed: Yes Labs/Studies Labs Reviewed: Reviewed by anesthesiologist Result Diagram: 01/16/19 0437 01/16/19 0437 Laboratory Tests 01/16/19 04:37 test: N/A Studies: ECG Pre-procedure Exam Last vitals Vital Signs Date Temp Pulse Resp B/P (MAP) Pulse Ox O2 O2 Flow FiO2 Time Delivery Rate 01/16/19 79 17 92/53 (66) 97 High Flow 09:00 01/16/19 98.1 08:00 01/16/19 30 07:49 01/16/19 5.0 00:15 Airway: Adequate mouth opening, Adequate thyromental dist Mallampati: Mallampati II Teeth: Normal Lung: Normal Heart: Normal ASA Physical Status ASA physical status: 4 Emergency: E Planned Anesthetic General/MAC: ETT Planned Pain Management Parenteral pain med Pre-operative Attestations Prior to commencing anesthesia and surgery, the patient was re-evaluated, there was verification of: *The patient's identity *The results of appropriate recent lab work and preoperative vital signs *The above evaluation not changing prior to induction *Anesthetic plan, risk benefits, alternative and complications discussed with patient/family; questions answered; patient/family understands, accepts and wishes to proceed. BIBIANA CHAVIRA MD Jan 16, 2019 11:23
--- NOTE | 2019-01-16 11:27 | CARRPT ---
DATE OF PROCEDURE: 01/16/2019 TYPE OF PROCEDURE: 1. Left heart catheterization. 2. Coronary angiography. 3. Measurement of left ventricular end-diastolic pressure. 4. Insertion of intraaortic balloon pump to the right femoral artery. 5. Moderate conscious sedation. ATTENDING PHYSICIAN: Neftali Lizarraga MD. REFERRING PHYSICIAN: Dr. Mckee from the hospitalist service. BRIEF HISTORY AND HOSPITAL COURSE: Mr. Lockhart is a 73-year-old male with history of hypertension, dyslipidemia, prior tobacco intake, who presented with complaints of substernal chest pain and ruled in for a non-ST elevation myocardial infarction. Patient this morning had worsening respiratory dist ress, has been transferred to ICU, now been brought to cardiac laborer hoisting in order to undergo urgent le ft heart catheterization to assess possibility of significant obstructive coronary artery disease logan ding symptoms of chest pain, shortness of breath, and non-ST elevation myocardial infarction. DESCRIPTION OF PROCEDURE: After informed consent was obtained, the patient was brought to the [facility] cardiac catheterization lab where his right radial area was prepped and draped in usual fashion. Lidocaine 2% was infiltrated into right radial area in order to achieve adequate anesthesia. Using the modified Seldinger technique, the right radial artery was cannulated and a 6-F rench arterial sheath was placed. A 6-Dominican JL3.5 catheter was used to cannulate the left main lopez nary ostium. With contrast injection, multiple views of the left coronary arterial system were obtai shea. A JL3.5 was removed over a guidewire and a JR4 was used to cannulate the right coronary to osti um. With contrast injection, multiple views of the right coronary system was obtained. JR4 was reece olive over a guidewire and a 6-Dominican pigtail was passed down the ascending aorta placed in LV. LVEDP was measured. Due to elevated LVEDP, no LV gram was undertaken. Pullback across the aortic valve to assess for significant gradient, which there was not and removed. Subsequently, this completed the diagnostic portion of this procedure. Catheters were removed. The patient's radial line was left in place with arterial line. At this time, given the findings of multivessel disease, hypotension, and using the modified Seldinger technique, the right femoral artery access was gained and 40 mL intraao rtic balloon pump was placed. The patient was placed in a 1:[address] surgical consult has been obtained. FINDINGS: Coronary angiography: Left main 4 mm, no significant stenoses. Circumflex, proximally, i s a 3.5 mm vessel, has a 95% stenosis, followed by another 95 to 99% stenosis, followed by another 95 % stenosis and then there is aneurysmal portion of the vessel and there is a distal branch obtuse mar ginal, a 2.5 mm with an ostial 50% stenosis and then a distal target and very distal branch obtuse ma rginal with sub2 mm vessel with no significant focal stenoses. There is a very proximal obtuse mari nal or ramus branch 2 mm vessel with ostial 90% stenosis, no other significant focal stenoses. The L AD proximally is a 3.5 mm vessel and in its midportion has a 90% stenosis and then has another mid di stal portion with a 90% stenosis. There is a distal branching diagonal sub 2 mm vessel with no signi ficant focal stenoses and a proximal branching diagonal 2 mm with no significant focal stenoses. The right coronary artery proximally is a 3 mm vessel and its mid distal portion has a very focal 80% to 90% stenosis and then, within the PDA, it is a dominant vessel which is a 2 mm PDA, there is another 90% to 95% stenosis. MEASUREMENTS: Left ventricular diastolic pressure of 30/31. No significant stenosis by gradient. Insertion of intraaortic balloon pump was inserted into the right femoral artery and placed at 1:1 au gmentation. TOTAL FLUOROSCOPY TIME: 4.1 minutes. TOTAL CONTRAST: 80 mL. IMPRESSION: 1. Multivessel obstructive coronary artery disease leaving high grade lesions in multiple places thr oughout the circumflex and in the LAD as well as in the right coronary artery, diffusely. 2. Elevated left heart filling pressures of 30 to 31. 3. No significant aortic stenosis by gradient. RECOMMENDATIONS: 1. In light of procedure findings at this time, patient has been referred for emergent coronary sabrina ry bypass graft surgery. 2. Patient should have the intraaortic balloon pump remained remain at 1:1 augmentation. 3. Patient will receive Lasix diuresis and close followup of his respiratory status. Dictated By: NEFTALI JACKSON/ZAY Conf#: [id number] DID#: [id number] CC: PONCHO PEREYRA MD;*End*
--- NOTE | 2019-01-16 11:28 | CONS ---
Assessment/Plan Assessment/Plan Assessment/Plan (Daily) 73 year old male with a NSTEMI and cardiomyopathy who will need emergent cabg. I explained to his and the patient via an cessation systems outreach specialist the risks are but not limited to bleeding, infection, stroke, GA, renal and respiratory failure and . They understood and consented. Consultation Date/Type/Reason Admit Date/Time Jan 15, 2019 at 01:24 Date of Consultation: Jan 16, [address] surgery Reason for Consultation emergency cabg eval Requesting Provider: NEFTALI LYNN Date/Time of Note DATE: 01/16/19 TIME: 11:23 Hx of Present Illness 73 year old male with history of prostate cancer, HTN admitted with chest pain and elevated troponin. cath today shows severe 3v cad with rising troponin. an IABP was placed and we are asked to take emergently for CABG. Constitutional: No no complaints, No improved, No chills, No diaphoresis, No disoriented, No febrile, No poor po, No requiring IVF, No requiring O2, No other Eyes: No no complaints, No pain, No discharge, No redness, No visual change, No other ENT: No no complaints, No bleeding, No pain, No congestion, No discharge, No dysphagia, No sore throat, No other Respiratory: No no complaints, No pain, No cough, No pleuritic pain, No shortness of breath, No sputum, No wheezing, No other Cardiovascular: chest pain Gastrointestinal: no complaints Genitourinary: no complaints Musculoskeletal: no complaints Skin: no complaints Neurologic: no complaints Endocrine: no complaints Lymphatic: no complaints Psychological: no complaints, nl mood/affect Immunologic: no complaints Past Medical History Medical History: no pertinent history Home Meds Active Scripts Sennosides/Docusate Sodium (Dok Plus Tablet) 1 Each Tablet, 2 TAB PO HS for 10 Days, #10 TAB 4 Refills Prov:ROMY ZAMORA MD 11/22/18 Acetaminophen* (Tylenol*) 325 Mg Tablet, 650 MG PO Q6H PRN for .PAIN 1-3 OR TEMP for 10 Days, TAB Prov:ROMY ZAMORA MD 11/22/18 Atorvastatin* (Atorvastatin*) 40 Mg Tablet, 40 MG PO HS for 30 Days, #30 TAB Prov:ROMY ZAMORA MD 11/22/18 Tamsulosin Hcl* (Flomax*) 0.4 Mg Cap.er.24h, 0.4 MG PO BID for 14 Days, #30 CAP Prov:ROMY ZAMORA MD 11/22/18 Bicalutamide* (Casodex*) 50 Mg Tablet, 50 MG PO DAILY for 14 Days, #15 TAB Prov:ROMY ZAMORA MD 11/22/18 Reported Medications Mirabegron (Myrbetriq) 50 Mg Tab.er.24h, 25 MG PO DAILY, TAB 11/18/18 Lisinopril* (Lisinopril*) 10 Mg Tablet, 10 MG PO BID, #30 TAB 11/18/18 Esomeprazole Mag Trihydrate (Nexium) 40 Mg Capsule.dr, 40 MG PO DAILY, #30 CAP 11/18/18 Terazosin Hcl* (Terazosin Hcl*) 5 Mg Capsule, 5 MG PO HS, CAP 11/18/18 Fluticasone Propionate (Flonase Allergy Relief) 9.9 Ml [place].susp, 1 SPRAY NASAL DAILY, #1 BOTTLE TO EACH NOSTRIL 11/18/18 Metoprolol Tartrate* (Lopressor*) 25 Mg Tablet, 25 MG PO BID, #60 TAB 11/18/18 Aspirin* (Aspirin* EC) 81 Mg Tablet.dr, 81 MG PO DAILY, TAB 11/18/18 Amlodipine Besylate* (Amlodipine Besylate*) 10 Mg Tablet, 10 MG PO DAILY, #30 TA B 11/18/18 Medications Current Medications IV Flush (NS 3 ml) 3 ml PER PROTOCOL IV ; Start 01/15/19 at 01:30 Nitroglycerin (Nitroglycerin (Sl Tab) 0.4 Mg) 1 tab Q5M PRN SL .CHEST PAIN Last administered on 01/16/19at 00:19; Admin Dose 1 TAB; Start 01/15/19 at 01:30 Acetaminophen (Tylenol Tab) 650 mg Q6H PRN PO .PAIN 1-3 OR TEMP; Start 01/15/19 at 01:30 Morphine Sulfate (morphine) 1 mg Q4H PRN IV .PAIN 7-10 Last administered on 01/15/19at 23:30; Admin Dose 1 MG; Start 01/15/19 at 01:30 Docusate Sodium (Colace) 100 mg Q12H PRN PO .CONSTIPATION; Start 01/15/19 at 01:30 Bisacodyl (Dulcolax) 5 mg DAILY PRN PO .CONSTIPATION; Start 01/15/19 at 01:30 Aspirin (Halfprin) 81 mg DAILY PO Last administered on 01/16/19 08:00; Admin Dose 81 MG; Start 01/15/19 at 09:00 Lisinopril (Zestril) 10 mg BID PO Last administered on 01/15/19 20:44; Admin Dose 10 MG; Start 01/15/19 at 09:00 Bicalutamide (Casodex) 50 mg DAILY PO ; Start 01/16/19 at 09:00 Tamsulosin HCl (Flomax) 0.4 mg BID PO Last administered on 01/16/19 08:00; Admin Dose 0.4 MG; Start 01/15/19 at 21:00 Terazosin HCl (Hytrin) 5 mg HS PO Last administered on 01/15/19 20:43; Admin Dose 5 MG; Start 01/15/19 at 21:00 Amlodipine Besylate (Norvasc) 10 mg DAILY PO ; Start 01/16/19 at 09:00 Atorvastatin Calcium (Lipitor) 40 mg HS PO Last administered on 01/15/19 20:43; Admin Dose 40 MG; Start 01/15/19 at 21:00 Metoprolol Tartrate (Lopressor) 25 mg BID PO Last administered on 01/15/19 20:44; Admin Dose 25 MG; Start 01/15/19 at 21:00 Heparin Sodium (Porcine) (Heparin (1000 Units/ml)) 4,000 unit PER PROTOCOL PRN IV aPTT<47; Start 01/15/19 at 22:00 Heparin Sodium (Porcine) 250 ml @ 8 mls/hr PER PROTOCOL IV Last administered on 01/15/19at 22:10; Admin Dose 8 MLS/HR; Start 01/15/19 at 22:00 Nitroglycerin (Nitroglycerin 2% Oint) 0.5 inch Q8 TD Last administered on 01/16/19 01:23; Admin Dose 0.5 INCH; Start 01/16/19 at 01:00 Miscellaneous Information (* Miscellaneous Pharmacy Order) Hold all Metformin ... ONCE XX ; Start 01/16/19 at 11:00; Stop 01/18/19 at 10:59 Acetaminophen (Tylenol Tab) 650 mg Q4H PRN PO PAIN; Start 01/16/19 at 11:00 Oxycodone/ Acetaminophen (Percocet (5/ 325)) 1 tab Q4H PRN PO PAIN; Start 01/16/19 at 11:00 Al Hydrox/Mg Hydrox/Simethicone (Mag-Al Plus) 30 ml Q4H PRN PO GASTROINTESTINAL UPSET; Start 01/16/19 at 11:00 Ondansetron HCl (Zofran Inj) 4 mg Q4H PRN IV NAUSEA AND/OR VOMITING; Start 01/16/19 at 11:00 Sodium Chloride 1,000 ml @ 75 mls/hr [id number] IV ; Start 01/16/19 at 10:59; Stop 01/17/19 at 00:18 Meropenem/Sodium Chloride 50 ml @ 100 mls/hr Q12 IVPB ; Start 01/16/19 at 21:00 Vancomycin HCl (Vanco Iv Per Pharmacy) VANCOMYCIN PER PHARMACY PER PROTOCOL XX ; Start 01/16/19 at 11:30 Allergies: Coded Allergies: No Known Allergy (Unverified , 08/21/15) Past Surgical History Past Surgical Hx: no surgical history Social History Alcohol Use: none Smoking Status: Never smoker Drug Use: none Exam/Review of Systems Exam Vitals Vital Signs Date Temp Pulse Resp B/P (MAP) Pulse Ox O2 O2 Flow FiO2 Time Delivery Rate 01/16/19 79 17 92/53 (66) 97 High Flow 09:00 01/16/19 98.1 08:00 01/16/19 30 07:49 01/16/19 5.0 00:15 Intake and Output 01/15/19 01/15/19 01/16/19 1515:00 23:00 07:00 IntakeIntake Total 600 ml 197.5 ml OutputOutput Total 250 ml 425 ml BalanceBalance 350 ml -227.5 ml Constitutional: alert, oriented, well developed Psych: no complaints, nl mood/affect Head: normocephalic, atraumatic Eyes: nl conjunctiva, EOMI, nl lids, nl sclera, PERRL ENMT: nl external ears & nose, nl lips & teeth, nl nasal mucosa & septum Respiratory: clear to auscultation, normal air movement Cardiovascular: regular rate and rhythm, nl pulses Musculoskeletal: nl extremities to inspection, nl gait and stance Extremities: normal pulses, other (IABP in place) Neurological: FAMILY LIFE COUNSELOR II-XII intact, nl mental status, nl speech, nl strength; No confused, No DTR's symmetric, No focal weakness, No lethargic, No numbn ess, No reflexes, No unresponsive, No other Skin: nl turgor; No rash or lesions, No diaphoresis, No ecchymosis, No laceration, No puncture, No other Lymph: nl lymph nodes Results Result Diagram: 01/16/19 0437 01/16/19 0437 Results 24hrs Laboratory Tests Test 01/15/19 12:15 01/15/19 16:00 01/15/19 23:44 01/16/19 00:31 Creatine Kinase 982 H 890 H 982 H Creatine Kinase 10.9 8.4 8.2 Index Creatinine 107.00 H 74.60 H 80.70 H Kinase MB (Mass) Troponin I 22.600 *H 15.700 *H 23.700 *H White Blood 12.5 H Count Red Blood Count 3.35 L Hemoglobin 10.1 L Hematocrit 30.8 L Mean Corpuscular 91.9 Volume Mean Corpuscular 30.1 Hemoglobin Mean Corpuscular 32.8 Hemoglobin Bailee nt Red Cell 13.8 Distribution Width Platelet Count 213 Mean Platelet 10.1 Volume Immature 0.800 H Granulocytes % Neutrophils % 87.2 H Lymphocytes % 5.7 L Monocytes % 6.1 Eosinophils % 0.0 Basophils % 0.2 Nucleated Red 0.0 Blood Cells % Immature 0.100 H Granulocytes # Neutrophils # 10.9 H Lymphocytes # 0.7 L Monocytes # 0.8 Eosinophils # 0.0 Basophils # 0.0 Nucleated Red 0.0 Blood Cells # Prothrombin Time 16.1 H Prothrombin Time 1.3 Ratio INR 1.28 International Normalized Ratio Activated 55.7 H Partial Thrombop last Time Blood Gas Blood arterial Specimen Source Arterial Blood 01/16/2019 12:00:2 Date Drawn 9 AM Arterial Blood 7.475 H pH (Temp corrected) Arterial Blood 28.7 L pCO2 (Temp correct) Arterial Blood 43.8 *L pO2 (Temp corrected) Arterial Blood 20.7 L HCO3 Arterial Blood -2.0 Base Excess Arterial Blood 81.5 L Oxygen Saturatio n Daniel Test ACCEPTAB Arterial Blood Right Radial Gas Puncture Site Arterial 0.2 Blood Carboxyhem oglobin Arterial Blood 0.3 Methemoglobin Blood Gas A-a O2 179.6 H Differential Oxyhemoglobin 81.1 L Percent Blood Gas 37.0 Temperature Blood Gas NASAL CANNULA Modality FiO2 36.0 Blood Gas Elise LARA MD Critical Value Read Back Blood Gas [place] Notified Whom Blood Gas 01/16/2019 12:11:5 Notified Time 5 AM Test 01/16/19 02:00 01/16/19 04:37 Blood Gas Blood arterial Specimen Source Arterial Blood 01/16/2019 2:00:16 Date Drawn AM Arterial Blood 7.519 H pH (Temp corrected) Arterial Blood 27.2 L pCO2 (Temp correct) Arterial Blood 240.4 H pO2 (Temp corrected) Arterial Blood 21.7 L HCO3 Arterial Blood -0.4 Base Excess Arterial Blood 98.9 Oxygen Saturatio n Daniel Test ACCEPTAB Arterial Blood Right Radial Gas Puncture Site Arterial 0.1 Blood Carboxyhem oglobin Arterial Blood 0 Methemoglobin Blood Gas A-a O2 445.4 H Differential Oxyhemoglobin 98.8 Percent Blood Gas 37.0 Temperature Blood Gas HFNC Modality FiO2 100.0 Blood Gas [place] Notified Whom Blood Gas 01/16/2019 2:22:55 Notified Time AM White Blood 9.6 # Count Red Blood Count 3.04 L Hemoglobin 9.1 L Hematocrit 27.8 L Mean Corpuscular 91.4 Volume Mean Corpuscular 29.9 Hemoglobin Mean Corpuscular 32.7 Hemoglobin Bailee nt Red Cell 13.8 Distribution Width Platelet Count 192 Mean Platelet 10.8 H Volume Immature 0.600 H Granulocytes % Neutrophils % 84.2 H Lymphocytes % 7.9 L Monocytes % 7.1 Eosinophils % 0.0 Basophils % 0.2 Nucleated Red 0.0 Blood Cells % Immature 0.060 H Granulocytes # Neutrophils # 8.1 H Lymphocytes # 0.8 Monocytes # 0.7 Eosinophils # 0.0 Basophils # 0.0 Nucleated Red 0.0 Blood Cells # Prothrombin Time 16.0 H Prothrombin Time 1.3 Ratio INR 1.27 International Normalized Ratio Activated 79.3 *H Partial Thrombop last Time Sodium Level 135 Potassium Level 4.1 Chloride Level 102 Carbon Dioxide 23 Level Anion Gap 10 Blood Urea 21 H Nitrogen Creatinine 0.93 Est Glomerular Filtrat Rate mL/min Glucose Level 143 Calcium Level 8.1 L Total Bilirubin 0.3 Direct Bilirubin 0.00 Indirect 0.3 Bilirubin Aspartate Amino 202 #H Transf (AST/SGOT ) Alanine 45 Aminotransferase (ALT/SGPT) Alkaline 64 Phosphatase Creatine Kinase 1184 H Creatine Kinase 8.9 Index Creatinine 105.00 H Kinase MB (Mass) Troponin I 53.300 *H Total Protein 6.0 L Albumin 3.1 L Globulin 2.90 Albumin/Globulin 1.06 Ratio Medications Medication Current Medications IV Flush (NS 3 ml) 3 ml PER PROTOCOL IV ; Start 01/15/19 at 01:30 Nitroglycerin (Nitroglycerin (Sl Tab) 0.4 Mg) 1 tab Q5M PRN SL .CHEST PAIN Last administered on 01/16/19 00:19; Admin Dose 1 TAB; Start 01/15/19 at 01:30 Acetaminophen (Tylenol Tab) 650 mg Q6H PRN PO .PAIN 1-3 OR TEMP; Start 01/15/19 at 01:30 Morphine Sulfate (morphine) 1 mg Q4H PRN IV .PAIN 7-10 Last administered on 01/15/19at 23:30; Admin Dose 1 MG; Start 01/15/19 at 01:30 Docusate Sodium (Colace) 100 mg Q12H PRN PO .CONSTIPATION; Start 01/15/19 at 01:30 Bisacodyl (Dulcolax) 5 mg DAILY PRN PO .CONSTIPATION; Start 01/15/19 at 01:30 Aspirin (Halfprin) 81 mg DAILY PO Last administered on 01/16/19 08:00; Admin Dose 81 MG; Start 01/15/19 at 09:00 Lisinopril (Zestril) 10 mg BID PO Last administered on 01/15/19at 20:44; Admin Dose 10 MG; Start 01/15/19 at 09:00 Bicalutamide (Casodex) 50 mg DAILY PO ; Start 01/16/19 at 09:00 Tamsulosin HCl (Flomax) 0.4 mg BID PO Last administered on 01/16/19 08:00; Admin Dose 0.4 MG; Start 01/15/19 at 21:00 Terazosin HCl (Hytrin) 5 mg HS PO Last administered on 01/15/19at 20:43; Admin Dose 5 MG; Start 01/15/19 at 21:00 Amlodipine Besylate (Norvasc) 10 mg DAILY PO ; Start 01/16/19 at 09:00 Atorvastatin Calcium (Lipitor) 40 mg HS PO Last administered on 01/15/19at 20:43; Admin Dose 40 MG; Start 01/15/19 at 21:00 Metoprolol Tartrate (Lopressor) 25 mg BID PO Last administered on 01/15/19at 20:44; Admin Dose 25 MG; Start 01/15/19 at 21:00 Heparin Sodium (Porcine) (Heparin (1000 Units/ml)) 4,000 unit PER PROTOCOL PRN IV aPTT<47; Start 01/15/19 at 22:00 Heparin Sodium (Porcine) 250 ml @ 8 mls/hr PER PROTOCOL IV Last administered on 01/15/19at 22:10; Admin Dose 8 MLS/HR; Start 01/15/19 at 22:00 Nitroglycerin (Nitroglycerin 2% Oint) 0.5 inch Q8 TD Last administered on 01/16/19at 01:23; Admin Dose 0.5 INCH; Start 01/16/19 at 01:00 Miscellaneous Information (* Miscellaneous Pharmacy Order) Hold all Metformin ... ONCE XX ; Start 01/16/19 at 11:00; Stop 01/18/19 at 10:59 Acetaminophen (Tylenol Tab) 650 mg Q4H PRN PO PAIN; Start 01/16/19 at 11:00 Oxycodone/ Acetaminophen (Percocet (5/ 325)) 1 tab Q4H PRN PO PAIN; Start 01/16/19 at 11:00 Al Hydrox/Mg Hydrox/Simethicone (Mag-Al Plus) 30 ml Q4H PRN PO GASTROINTESTINAL UPSET; Start 01/16/19 at 11:00 Ondansetron HCl (Zofran Inj) 4 mg Q4H PRN IV NAUSEA AND/OR VOMITING; Start 01/16/19 at 11:00 Sodium Chloride 1,000 ml @ 75 mls/hr [id number] IV ; Start 01/16/19 at 10:59; Stop 01/17/19 at 00:18 Meropenem/Sodium Chloride 50 ml @ 100 mls/hr Q12 IVPB ; Start 01/16/19 at 21:00 Vancomycin HCl (Vanco Iv Per Pharmacy) VANCOMYCIN PER PHARMACY PER PROTOCOL XX ; Start 01/16/19 at 11:30 SHARON MONTGOMERY MD Jan 16, 2019 11:28
[2019-01-16] MEDS ORDERED: VANCOMYCIN IV PER PHARMACY XX SCH (11:30)
[2019-01-16] MEDS ORDERED: PHENYLephrine (100 MCG/ML) 10ML SYG ONE (11:47)
[2019-01-16] MEDS ORDERED: PHENYLephrine 10 MG INJ ONE (11:53)
[2019-01-16] MEDS ORDERED: AMINOCAPROIC ACID 5 GM INJ ONE (11:53)
[2019-01-16] MEDS ORDERED: MANNITOL 20% 500 ML ONE ×2 (11:53→13:08)
[2019-01-16] MEDS ORDERED: ALBUMIN HUMAN 25% 100 ML ONE (11:53)
[2019-01-16] MEDS ORDERED: MAGNESIUM SULFATE (MG) 50% 10 ML INJ ONE (11:53)
[2019-01-16] MEDS ORDERED: LIDOCAINE 100 MG SYRINGE ONE (11:53)
[2019-01-16] MEDS ORDERED: NA BICARBONATE 8.4% 50 ML SYG ONE ×2 (11:53→15:15)
[2019-01-16] MEDS ORDERED: CA CHLORIDE 10% 10 ML SYRINGE ONE (11:53)
[2019-01-16] MEDS ORDERED: NORepinephrine 4 MG INJ ONE (11:54)
[2019-01-16] MEDS ORDERED: POTASSIUM CHLORIDE 40 MEQ INJ ONE (11:54)
[2019-01-16] MEDS ORDERED: FUROSEMIDE 20 MG INJ ONE ×2 (11:54→16:38)
[2019-01-16] MEDS ORDERED: CEFAZOLIN 1 GM INJ ONE ×2 (12:07→15:37)
[2019-01-16] MEDS ORDERED: POLYMYXIN/BACITRACIN 1L IRRIG IRR ONE (13:08)
--- NOTE | 2019-01-16 13:10 | RADRPT ---
Vent Rate: 89 bpm RR Interval: 0 msec [place] Interval: 186 msec QRS Duration: 96 msec QT Interval: 372 msec QTC Interval: 452 msec P-R-T [place]: 67 - -48 - -77 degrees Normal sinus rhythm Incomplete right bundle branch block Left anterior fascicular block Septal infarct , age undetermined Marked ST abnormality, possible inferior subendocardial injury Marked ST abnormality, possible anterior subendocardial injury Abnormal ECG Electronically Signed By: Rajinder Gilbert
--- NOTE | 2019-01-16 13:11 | RADRPT ---
Vent Rate: 113 bpm RR Interval: 0 msec CO Interval: 214 msec QRS Duration: 94 msec QT Interval: 342 msec QTC Interval: 469 msec P-R-T [place]: 106 - -41 - 0 degrees Sinus tachycardia with 1st degree AV block Left axis deviation Left ventricular hypertrophy with repolarization abnormality Marked ST abnormality, possible anterior subendocardial injury Abnormal ECG Electronically Signed By: Rajinder Gilbert
--- NOTE | 2019-01-16 13:12 | RADRPT ---
Vent Rate: 107 bpm RR Interval: 0 msec IN Interval: 0 msec QRS Duration: 96 msec QT Interval: 362 msec QTC Interval: 483 msec P-R-T [place]: 0 - -53 - 78 degrees Accelerated Junctional rhythm Left axis deviation Marked ST abnormality, possible inferior subendocardial injury Marked ST abnormality, possible anterolateral subendocardial injury Abnormal ECG Electronically Signed By: Rajinder Gilbert
--- NOTE | 2019-01-16 13:45 | CONS ---
DATE OF ADMISSION: 01/15/2019 DATE OF CONSULTATION: 01/16/2019 TYPE OF CONSULTATION: Infectious disease. REASON FOR CONSULTATION: Antibiotic management. HISTORY OF PRESENT ILLNESS: Srini Lockhart is a 73-year-old Urdu-[place]uneian male brought in on for shortness of breath and chest pain. His history includes: 1. Hypertension. 2. Hyperlipidemia. 3. Prostate carcinoma. The patient presents with shortness of breath and chest pain beginning a few hours prior to admission . He has left-sided pressure-like chest pain. He is not diaphoretic. His shortness of breath is ge tting progressively worse. He is oxygenating at 89% on room air. The patient notes that he had feve r and chills. Denies a cough. PAST MEDICAL HISTORY: Includes hypertension. FAMILY HISTORY: Noncontributory. SOCIAL HISTORY: Does smoke and he does drink. He does not abuse drugs. ALLERGIES: NONE TO PENICILLIN, SULFA OR FOODS. MEDICATIONS: Per chart. REVIEW OF SYSTEMS: As per HPI. HOSPITAL COURSE: On admission, his temperature was 100.5. White count is 13.7, H and H is 10.2 and 31.3 and platelet count 257,000. BUN and creatinine is 17/0.78, glucose 134. The patient was starte d initially on Levaquin. Chest x-ray showed calcified thoracic aortic arch, prominent interstitium w ith reticulonodular opacities within the lower lung zones bilaterally, degenerative joint disease wit hin the spine. The patient was hypoxic on admission. The patient's ejection fraction in 11/2018 fro m 2D echo was 35% to 40% with diastolic dysfunction. The patient was found sepsis secondary to UTI. Urinalysis shows 3+ leukocyte esterase, 72 white cells per high-power field and blood cultures growi ng gram-negative rods, so he probably has urinary tract infection with sepsis. She is on insulin, no repinephrine, epinephrine. He is on Levaquin at the present time. White count today is 9.6. The yariel tran was taken to the recyclable materials collector. He had a cardiac arrest and transferred to urgent [facility]. Cardiopulmonary arrest during cardiac recyclable materials collector, now in the emergency open heart surgery. He had urinary retention. PHYSICAL EXAMINATION: GENERAL: Prior to arrest, he is complaining of chest pain, has history of prostate carcinoma. SKIN: Without generalized rash. HEENT: Within normal limits. NECK: Supple. LYMPH NODES: None palpable. CHEST: Decreased breath sounds at the bases. HEART: Without murmur or gallop. ABDOMEN: Soft, nontender without organosplenomegaly or masses. EXTREMITIES: Without cyanosis, clubbing or edema. RECTAL AND GENITAL: Deferred. NEUROLOGIC: No focal neurological abnormality. IMPRESSION AND PLAN: I would change antibiotics to vancomycin and to cefepime especially in view of the cardiac arrest. I will dictate my findings to the hospitalist and to Dr. Lizarraga, cardiology. Dictated By: MANNY BURNS MD, JD/NTS Conf#: [id number] DID#: [id number] CC: ERIK LARA MD; PONCHO PEREYRA MD; NEFTALI LIZARRAGA MD;*End*
[2019-01-16] MEDS ORDERED: PROTAMINE 250 MG INJ ONE (16:28)
[2019-01-16] MEDS ORDERED: ETOMIDATE 20 MG INJ ONE (17:07)
[2019-01-16] MEDS ORDERED: ROCURONIUM 50 MG INJ ONE (17:07)
[2019-01-16] MEDS ORDERED: LIDOCAINE 2% (SDV) 5 ML INJ ONE (17:07)
--- NOTE | 2019-01-16 17:17 | SIPON ---
Date/Time of Note Date/Time of Note DATE: 01/16/19 TIME: 17:16 Operative Report Preoperative Diagnosis CAD, NSTEMI Postoperative Diagnosis SAME Operation/Procedure Performed CABGX4. ENRIQUEZ TO LAD, SVG TO OM, SVG TO RAMUS, SVG TO PDA Surgeon see signature line assistant boys track coach NGUYỄN SHETH MD AND TITA LANDA MD Second assist: SAUD MADDOX Anesthesia: general Estimated blood loss: 250 - 300 ml's Transfusion Required none Specimen NONE Grafts/Implants none Complications none SHARON MONTGOMERY MD Jan 16, 2019 17:17
[2019-01-16] MEDS ORDERED: DEXTROSE 50% 50 ML SYRINGE IV PRN ×2 (17:30)
[2019-01-16] MEDS ORDERED: NITROGLYCERIN 50 MG/D5W (PMX) 250 ML IV SCH ×2 (17:30→18:00)
[2019-01-16] MEDS ORDERED: MAGNESIUM SULFATE 1 GM/D5W 100 ML IVPB PRN (17:30)
[2019-01-16] MEDS ORDERED: HYDROmorphONE 0.5 MG/0.5 ML SYG IV PRN ×2 (17:30)
--- NOTE | 2019-01-16 17:49 | PAC ---
Date/Time of Note Date/Time of Note DATE: 01/16/19 TIME: 17:48 Post-Anesthesia Notes Post-Anesthesia Note Last documented vital signs Vital Signs Date Temp Pulse Resp B/P (MAP) Pulse Ox O2 O2 Flow FiO2 Time Delivery Rate 01/16/19 79 17 92/53 (66) 97 High Flow 09:00 01/16/19 98.1 08:00 01/16/19 30 07:49 01/16/19 5.0 00:15 Activity: WNL Respiratory function: WNL Cardiovascular function: WNL Mental status: Baseline Pain reasonably controlled: Yes Hydration appropriate: Yes Nausea/Vomiting absent: Yes Comments BP:106/67, P:98, Spo2:100%, T:98,9 BIBIANA CHAVIRA MD Jan 16, 2019 17:49
[2019-01-16] MEDS ORDERED: DOPamine-D5W 1.6 MG/ML 250 ML IV SCH (18:00)
[2019-01-16] MEDS: ACCU-CHEK XX SCH ×5 (19:00→23:02)
--- NOTE | 2019-01-16 19:04 | OPR ---
DATE OF OPERATION: 01/16/2019 PREOPERATIVE DIAGNOSES: 1. Non-ST elevation myocardial infarction. 2. Three-vessel coronary artery disease. POSTOPERATIVE DIAGNOSES: 1. Non-ST elevation myocardial infarction. 2. Three-vessel coronary artery disease. PROCEDURES: Emergency CABG x4, ENRIQUEZ to LAD, SVG to PDA, SVG to ramus, SVG to obtuse marginal artery, epiaortic scanning of the ascending aorta, endoscopic vein harvesting. SURGEON: Sharon Snow MD GEOSCIENCE TECHNICIAN: Be Dickey MD SECOND CABLE SYSTEMS INSTALLER: MARY KATE Lara ANESTHESIOLOGIST: Donte Toney MD ANESTHESIA: General endotracheal. COMPLICATIONS: None. FINDINGS: LV function was about 40% preoperatively. After revascularization, it was 50%. He had ex cellent flow in all the grafts. ENRIQUEZ to LAD had a flow of 61 mL per minute. The flow in the PDA was 40 mL per minute. The flow in the OM was 71 mL per minute and the flow in the ramus was 30 mL per m inute. Cardiopulmonary bypass time was 89 minutes. Crossclamp time was 52 minutes. The aorta did n ot have any atheromas. There were some plaquing posteriorly. The LAD was a 2.25 mm vessel. The caron us was a 1.75 mm vessel. The OM was a 2 mm vessel but calcified and the PDA was a 1.75 mm vessel and we split a plaque which was quite calcified. INDICATION: The patient is a 73-year-old male who was admitted with non-STEMI. His troponin was 15 yesterday and this morning it went up to 50. He was taken emergently to the phlebotomy lab assistant where he was fo und to have severe 3-vessel coronary artery disease and had intraaortic balloon pump and we were call ed for an emergency bypass. I explained the benefits, the risks, alternatives to the patient as well as his via bead supervisor. They understood and consented. DESCRIPTION OF PROCEDURE: The patient was brought to the operating room, was placed in supine positi on. He was induced and underwent general endotracheal intubation without complications. Lines were placed. Antibiotics were given. He was prepped and draped in usual sterile fashion. Median sternot rosmery was made simultaneous to endoscopic vein harvesting of the saphenous vein from the left lower ext remity. Heparin was given. ENRIQUEZ was taken down using clips and cautery. Pericardial well was estab lished. The ascending aorta was scanned. There were no atheromas but there was some plaquing in the posterior aspect of the ascending aorta. Once this was done, we placed a pursestring in the ascendi ng aorta followed by the right atrium. We cannulated the ascending aorta followed by 2-stage venous cannula in the right atrium. We also placed ascending aortic vent. Once all our lines were in place , we commenced cardiopulmonary bypass. We placed a crossclamp and arrested the heart using antegrade cardioplegia and topical ice. We identified the obtuse marginal artery, made arteriotomy, extended with Long scissors, anastomosed our vein graft using 7-0 Prolene in running fashion in end-to-side [facility]. The vein graft was cut to length. More cardioplegia was given. We identified the ramus, mad e arteriotomy and anastomosed our vein graft using 7-0 Prolene in running fashion in end-to-side [facility]. Once this was done, we identified the PDA. We identified a stenosis in the proximal PDA. We sp lit this plaque and then we were able to anastomose our vein graft using 7-0 Prolene in running fashi on in end-to-side manner. We then identified the mid LAD, made arteriotomy, extended with Ethan scis sors, anastomosed our ENRIQUEZ using 7-0 Prolene in running fashion in end-to-side manner. At this time, we gave warm blood and rewarmed the patient. We removed the cross clamp and placed ventricular wire and placed partial clamp on the ascending aorta, made 3 aortotomies and anastomosed our vein graft u sing 5-0 Prolene in running fashion in end-to-side manner. Partial clamp was removed. Vein grafts w ere deaired. Distal hemostasis was achieved. We then began ventilating and weaned him off cardiopul monary bypass without difficulty. Once he was off bypass, we gave protamine. We de-lined the patien t. We placed a left pleural tube and anterior mediastinal tube. Once hemostasis was achieved, we cl osed the chest using interrupted cables followed by closure of the fascia using 0 Vicryl followed by closure of skin using 4-0 Monocryl in subcuticular fashion. A SAEED drain was placed in the lower extre mity and then the incisions were closed using 3-0 Vicryl for the deep layer and 4-0 Monocryl for the skin. He did receive 4 units of blood, 2 units of FFP and 1 unit of platelets. He was taken to the ICU in stable condition. Dictated By: SHARON GREEN/ZAY Conf#: [id number] DID#: [id number] CC: ERIK LARA MD; PONCHO PEREYRA MD; NEFTALI LYNN MD;*End*
[2019-01-16] MEDS: POTASSIUM CHLORIDE 40 MEQ, CALCIUM CHLORIDE 10% 1 GM in DEXTROSE 5%-0.225% NACL 1,000 ML IV SCH (19:05)
[2019-01-16] MEDS: PHENYLephrine 20MG IN 250 ML 250 ML IV SCH ×2 (19:27→21:36)
[2019-01-16] MEDS: PROPOFOL 100 ML IV SCH (19:30)
[2019-01-16] MEDS: CEFAZOLIN 1 GM/50 ML (PMX) 50 ML IVPB SCH (19:38)
[2019-01-16] MEDS: MIDAZOLAM (DRIP) 50 mg/50 mL 50 ML IV SCH (19:49)
[2019-01-16] MEDS ORDERED: FAMOTIDINE 20 MG INJ IV SCH (20:00)
[2019-01-16] MEDS: ALBUMIN HUMAN 25% 100 ML IV PRN ×2 (20:36→22:31)
[2019-01-16] MEDS: MEROPENEM 1 GM/50ML(PMX) 50 ML IVPB SCH (20:48)
[2019-01-16] MEDS: FAMOTIDINE 20 MG TAB PO SCH (20:51)
[2019-01-16] MEDS: ATORVASTATIN 40 MG TAB PO SCH (20:52)
[2019-01-16] MEDS ORDERED: VANCOMYCIN HCL 1.25 GM in SOD CHLORIDE 0.9% 250 ML IVPB ONE (21:00)
[2019-01-16] MEDS: POTASSIUM CHLORIDE 50 ML IVPB PRN ×3 (21:20→23:42)
[2019-01-16] MEDS: INSULIN HUMAN REGULAR 100 UNIT in SOD CHLORIDE 0.9% 99 ML IV SCH (22:49)
[2019-01-16] MEDS ORDERED: ALBUMIN HUMAN 5% 250 ML ONE (22:56)
[2019-01-16] MEDS ORDERED: ALBUMIN HUMAN 5% 250 ML IV PRN ×2 (23:00)
[2019-01-16] MEDS ORDERED: ALBUMIN HUMAN 25% 250 ML IV PRN (23:00)
[2019-01-16] MEDS: PHENYLephrine 40 MG in DEXTROSE 5% 246 ML IV SCH (23:45)
[2019-01-17] VITALS (102 sets, daily range): BP systolic 75–127; BP diastolic 30–80; PULSE 79–120; RESP 15–31; TEMP 99.3–101.5
[2019-01-17] MEDS: ACCU-CHEK XX SCH ×24 (00:04→23:00)
[2019-01-17] MEDS ORDERED: ALBUMIN HUMAN 5% 250 ML ONE (00:36)
[2019-01-17] MEDS: PHENYLephrine 40 MG in DEXTROSE 5% 246 ML IV SCH ×5 (00:58→12:57)
[2019-01-17] MEDS: CEFAZOLIN 1 GM/50 ML (PMX) 50 ML IVPB SCH ×2 (01:33→11:50)
[2019-01-17] MEDS: ALBUMIN HUMAN 5% 250 ML IV PRN ×2 (01:37→22:36)
[2019-01-17] MEDS: MIDAZOLAM (DRIP) 50 mg/50 mL 50 ML IV SCH ×3 (03:04→23:15)
[2019-01-17] MEDS: PROPOFOL 100 ML IV SCH ×2 (04:17→17:14)
[2019-01-17] MEDS: POTASSIUM CHLORIDE 50 ML IVPB PRN ×3 (06:08→09:51)
--- NOTE | 2019-01-17 06:55 | PN ---
Date/Time of Note Date/Time of Note DATE: 01/17/19 TIME: 06:54 Assessment/Plan Lines/Catheters IV Catheter Type (from [facility]): A Line Galvez in Place (from [facility]): Yes Assessment/Plan Assessment/Plan CI2.8, [id number]. minimal chest tube output, hct 20. transfuse 2 units blood. remove IABP later today and wean vent Exam/Review of Systems Vital Signs Vitals Vital Signs Date Temp Pulse Resp B/P (MAP) Pulse Ox O2 O2 Flow FiO2 Time Delivery Rate 01/17/19 100 18 98/71 (80) 100 Mechanical 06:30 Ventilator 01/17/19 99.7 06:00 01/17/19 30 05:22 01/16/19 5.0 00:15 Intake and Output 01/16/19 01/16/19 01/17/19 1414:59 22:59 06:59 IntakeIntake Total 1503.5 ml 3330.833 ml 2022.488 ml OutputOutput Total 425 ml 4339 ml 723 ml BalanceBalance 1078.5 ml -1008.167 ml 1299.488 ml Results Result Diagram: 01/17/19 0438 01/17/19 0400 SHARON MONTGOMERY MD Jan 17, 2019 06:55
[2019-01-17] MEDS: BICALUTAMIDE 50 MG TAB PO SCH (09:00)
[2019-01-17] MEDS ORDERED: VANCOMYCIN 750 MG (PMX) 250 ML IVPB SCH (09:00)
--- NOTE | 2019-01-17 09:02 | CONS ---
Consult Date/Type/Reason Admit Date/Time Jan 15, 2019 at 01:24 Initial Consult Date 01/16/19 Requesting Provider: NEFTALI LYNN Date/Time of Note DATE: 01/17/19 TIME: 08:57 Subjective Pt CABG yesterday- still on IABP - 2:1 now- on dopa + rachael gtt - will wean off as BP is table - increased urine output - will monitor now - surgery follows. ROS: No fever, no chills, no nausea, no vomiting, no diarrhea/constipation - per nurse,pt non-verbal Objective Vitals Vital Signs Date Temp Pulse Resp B/P (MAP) Pulse Ox O2 O2 Flow FiO2 Time Delivery Rate 01/17/19 98 17 83/42 (56) 100 08:45 01/17/19 99.8 08:00 01/17/19 Mechanical 06:30 Ventilator 01/17/19 30 05:22 01/16/19 5.0 00:15 Intake and Output 01/16/19 01/16/19 01/17/19 1515:00 23:00 07:00 IntakeIntake Total 1496.0 ml 3652.666 ml 1912.478 ml OutputOutput Total 300 ml 4409 ml 653 ml BalanceBalance 1196.0 ml -756.334 ml 1259.478 ml Exam General: WN/WD/NAD, AOx 0 - post op HEENT: Unicetric/atraumatic/EOMI (does not follow commands) NECK: JVD elevated, no thyromegaly - intubated Lymph: no lymphadenopathy HEART: regular with no S3, II/ systolic murmur at apex, no rub LUNGS: Coarse sounds ABD: soft, NT, ND, +BS : Intact Neuro: non focal SKIN: chronic changes EXT: trace edema - good pulses Results/Medications Result Diagram: 01/17/19 0438 01/17/19 0400 Results 24 hrs Laboratory Tests Test 01/16/19 10:55 01/16/19 17:48 01/16/19 17:51 01/16/19 18:15 Activated 43.1 H 29.7 Partial Thrombo plast Time Bedside Glucose 122 White Blood 12.6 #H Count Red Blood Count 2.98 L Hemoglobin 9.0 L Hematocrit 26.5 L Mean 88.9 Corpuscular Volume Mean 30.2 Corpuscular Hemoglobin Mean 34.0 Corpuscular Hemoglobin Conc ent Red Cell 14.6 H Distribution Width Platelet Count 142 # Mean Platelet 10.1 Volume Immature 1.000 H Granulocytes % Neutrophils % 85.9 H Lymphocytes % 4.7 L Monocytes % 8.2 Eosinophils % 0.0 Basophils % 0.2 Nucleated Red 0.0 Blood Cells % Immature 0.120 H Granulocytes # Neutrophils # 10.9 H Lymphocytes # 0.6 L Monocytes # 1.0 H Eosinophils # 0.0 Basophils # 0.0 Nucleated Red 0.0 Blood Cells # Sodium Level 142 Potassium Level 3.4 L Chloride Level 102 Carbon Dioxide 27 Level Anion Gap 13 Blood Urea 23 H Nitrogen Creatinine 1.04 Est Glomerular Filtrat Rate mL/min Glucose Level 116 Calcium Level 8.4 Magnesium Level 2.9 H Prothrombin 16.8 H Time Prothrombin 1.3 Time Ratio INR 1.35 International Normalized Rati o Test 01/16/19 19:53 01/16/19 20:31 01/16/19 22:41 01/17/19 00:03 Bedside Glucose 138 215 203 Blood Gas BLMV Specimen Source Arterial Blood 01/16/2019 9:10:0 Date Drawn 0 PM Arterial Blood 7.465 H pH (Temp corrected ) Arterial Blood 35.6 pCO2 (Temp correct) Arterial Blood 259.1 H pO2 (Temp corrected ) Arterial Blood 25.0 HCO3 Arterial Blood 1.4 Base Excess Arterial Blood 99.0 Oxygen Saturati on Daniel Test N/A Arterial Blood A-Line Gas Puncture Site Arterial 0.3 Blood Carboxyhe moglobin Arterial Blood 0.3 Methemoglobin Mixed Venous 30.3 Blood PO2 Mixed Venous 63.3 L Blood O2 Saturation Mixed Venous 8.3 Blood Total Hemoglobi n Mixed Venous 62.9 Blood Oxyhemogl obin Mixed Venous 0.3 Bld Carboxyhemo globin Mixed Venous 0.3 Blood Methemogl obin Blood Gas A-a 201.7 H O2 Differential Oxyhemoglobin 98.4 Percent Blood Gas 37.0 Temperature Blood Gas 14.0 Respiration Rate Blood Gas 20 Actual Respiration Rat e Blood Gas VENT - AC Modality FiO2 70.0 Blood Gas Tidal 550.0 Volume Blood Gas Low 5.0 PEEP Setting Blood Gas 20.0 Inspiratory Pressure Blood Gas KM Notified Whom Blood Gas 01/16/2019 9:24:2 Notified Time 4 PM Test 01/17/19 01:01 01/17/19 02:00 01/17/19 03:02 01/17/19 04:00 Bedside Glucose 207 178 173 Sodium Level 143 Potassium Level 3.7 Chloride Level 105 Carbon Dioxide 27 Level Anion Gap 11 Blood Urea 24 H Nitrogen Creatinine 1.07 Est Glomerular Filtrat Rate mL/min Glucose Level 122 Calcium Level 8.6 Magnesium Level 2.2 Total Bilirubin 0.4 Direct 0.00 Bilirubin Indirect 0.4 Bilirubin Aspartate Amino 130 H Transf (AST/SGO T) Alanine 26 Aminotransferas e (ALT/SGPT) Alkaline 34 L Phosphatase Creatine Kinase 883 H Creatine Kinase 6.2 Index Creatinine 55.10 H Kinase MB (Mass) Troponin I 61.200 *H B-Type 93586 H Natriuretic Peptide Total Protein 5.8 L Albumin 3.6 Globulin 2.20 Albumin/Globuli 1.63 n Ratio Test 01/17/19 04:02 01/17/19 04:38 01/17/19 05:00 01/17/19 05:01 Bedside Glucose 134 123 White Blood 7.3 # Count Red Blood Count 2.35 #L Hemoglobin 7.0 #L Hematocrit 20.8 #L Mean 88.5 Corpuscular Volume Mean 29.8 Corpuscular Hemoglobin Mean 33.7 Corpuscular Hemoglobin Conc ent Red Cell 15.6 H Distribution Width Platelet Count 141 Mean Platelet 10.9 H Volume Immature 0.300 Granulocytes % Neutrophils % Segmented 71 Neutrophils % (Manual) Band 10 H Neutrophils % (Manual) Lymphocytes % Lymphocytes % 9 L (Manual) Monocytes % Monocytes % 10 (Manual) Eosinophils % Basophils % Nucleated Red 0.0 Blood Cells % Immature 0.020 Granulocytes # Neutrophils # Neutrophils # 5.2 (Manual) Band 0.7 H Neutrophils # Lymphocytes 0.6 L (Manual) Lymphocytes # Monocytes # Monocytes # 0.7 (Manual) Eosinophils # Basophils # Nucleated Red Blood Cells # Platelet NORMAL Estimate Polychromasia 2+ Poikilocytosis 1+ Anisocytosis 1+ Microcytosis 1+ Ovalocytes 1+ Prothrombin 17.2 H Time Prothrombin 1.3 Time Ratio INR 1.39 International Normalized Rati o Activated 49.9 H Partial Thrombo plast Time Blood Gas Blood arterial Specimen Source Arterial Blood 01/17/2019 5:00:3 Date Drawn 1 AM Arterial Blood 7.491 H pH (Temp corrected ) Arterial Blood 35.4 pCO2 (Temp correct) Arterial Blood 139.9 H pO2 (Temp corrected ) Arterial Blood 26.4 H HCO3 Arterial Blood 3.0 Base Excess Arterial Blood 98.2 Oxygen Saturati on Daniel Test N/A Arterial Blood A-Line Gas Puncture Site Arterial 0.3 Blood Carboxyhe moglobin Arterial Blood 0 Methemoglobin Blood Gas A-a 104.6 H O2 Differential Oxyhemoglobin 97.9 Percent Blood Gas 37.0 Temperature Blood Gas 14.0 Respiration Rate Blood Gas 19 Actual Respiration Rat e Blood Gas VENT - AC Modality FiO2 40.0 Blood Gas Tidal 550.0 Volume Blood Gas Low 5.0 PEEP Setting Blood Gas 22.0 Inspiratory Pressure Blood Gas KM Notified Whom Blood Gas 01/17/2019 5:09:5 Notified Time 5 AM Test 01/17/19 05:13 01/17/19 06:04 01/17/19 07:00 01/17/19 08:34 Lab Scanned BLOOD TRANSFUSI Report ON Bedside Glucose 104 119 110 Home Meds Active Scripts Sennosides/Docusate Sodium (Dok Plus Tablet) 1 Each Tablet, 2 TAB PO HS for 10 Days, #10 TAB 4 Refills Prov:ROMY ZAMORA MD 11/22/18 Acetaminophen* (Tylenol*) 325 Mg Tablet, 650 MG PO Q6H PRN for .PAIN 1-3 OR TEMP for 10 Days, TAB Prov:ROMY ZAMORA MD 11/22/18 Atorvastatin* (Atorvastatin*) 40 Mg Tablet, 40 MG PO HS for 30 Days, #30 TAB Prov:ROMY ZAMORA MD 11/22/18 Tamsulosin Hcl* (Flomax*) 0.4 Mg Cap.er.24h, 0.4 MG PO BID for 14 Days, #30 CAP Prov:ROMY ZAMORA MD 11/22/18 Bicalutamide* (Casodex*) 50 Mg Tablet, 50 MG PO DAILY for 14 Days, #15 TAB Prov:ROMY ZAMORA MD 11/22/18 Reported Medications Mirabegron (Myrbetriq) 50 Mg Tab.er.24h, 25 MG PO DAILY, TAB 11/18/18 Lisinopril* (Lisinopril*) 10 Mg Tablet, 10 MG PO BID, #30 TAB 11/18/18 Esomeprazole Mag Trihydrate (Nexium) 40 Mg Capsule.dr, 40 MG PO DAILY, #30 CAP 11/18/18 Terazosin Hcl* (Terazosin Hcl*) 5 Mg Capsule, 5 MG PO HS, CAP 11/18/18 Fluticasone Propionate (Flonase Allergy Relief) 9.9 Ml [place].susp, 1 SPRAY NASAL DAILY, #1 BOTTLE TO EACH NOSTRIL 11/18/18 Metoprolol Tartrate* (Lopressor*) 25 Mg Tablet, 25 MG PO BID, #60 TAB 11/18/18 Aspirin* (Aspirin* EC) 81 Mg Tablet.dr, 81 MG PO DAILY, TAB 11/18/18 Amlodipine Besylate* (Amlodipine Besylate*) 10 Mg Tablet, 10 MG PO DAILY, #30 TAB 11/18/18 Medications Current Medications IV Flush (NS 3 ml) 3 ml PER PROTOCOL IV ; Start 01/15/19 at 01:30 Nitroglycerin (Nitroglycerin (Sl Tab) 0.4 Mg) 1 tab Q5M PRN SL .CHEST PAIN Last administered on 01/16/19at 00:19; Admin Dose 1 TAB; Start 01/15/19 at 01:30 Morphine Sulfate (morphine) 1 mg Q4H PRN IV .PAIN 7-10 Last administered on 01/15/19at 23:30; Admin Dose 1 MG; Start 01/15/19 at 01:30 Docusate Sodium (Colace) 100 mg Q12H PRN PO .CONSTIPATION; Start 01/15/19 at 01:30 Bisacodyl (Dulcolax) 5 mg DAILY PRN PO .CONSTIPATION; Start 01/15/19 at 01:30 Lisinopril (Zestril) 10 mg BID PO Last administered on 01/15/19at 20:44; Admin Dose 10 MG; Start 01/15/19 at 09:00; Status Hold Bicalutamide (Casodex) 50 mg DAILY PO ; Start 01/16/19 at 09:00 Tamsulosin HCl (Flomax) 0.4 mg BID PO Last administered on 01/16/19at 08:00; Admin Dose 0.4 MG; Start 01/15/19 at 21:00 Terazosin HCl (Hytrin) 5 mg HS PO Last administered on 01/15/19at 20:43; Admin Dose 5 MG; Start 01/15/19 at 21:00; Status Hold Amlodipine Besylate (Norvasc) 10 mg DAILY PO ; Start 01/16/19 at 09:00; Status Hold Atorvastatin Calcium (Lipitor) 40 mg HS PO Last administered on 01/15/19at 20:43; Admin Dose 40 MG; Start 01/15/19 at 21:00 Metoprolol Tartrate (Lopressor) 25 mg BID PO Last administered on 01/15/19at 20:44; Admin Dose 25 MG; Start 01/15/19 at 21:00; Status Hold Heparin Sodium (Porcine) (Heparin (1000 Units/ml)) 4,000 unit PER PROTOCOL PRN IV aPTT<47; Start 01/15/19 at 22:00 Heparin Sodium (Porcine) 250 ml @ 8 mls/hr PER PROTOCOL IV Last administered on 01/15/19at 22:10; Admin Dose 8 MLS/HR; Start 01/15/19 at 22:00 Nitroglycerin (Nitroglycerin 2% Oint) 0.5 inch Q8 TD Last administered on 01/16/19at 01:23; Admin Dose 0.5 INCH; Start 01/16/19 at 01:00; Status Hold Miscellaneous Information (* Miscellaneous Pharmacy Order) Hold all Metformin ... ONCE XX ; Start 01/16/19 at 11:00; Stop 01/18/19 at 10:59 Oxycodone/ Acetaminophen (Percocet (5/ 325)) 1 tab Q4H PRN PO PAIN; Start 01/16/19 at 11:00 Al Hydrox/Mg Hydrox/Simethicone (Mag-Al Plus) 30 ml Q4H PRN PO GASTROINTESTINAL UPSET; Start 01/16/19 at 11:00 Meropenem/Sodium Chloride 50 ml @ 100 mls/hr Q12 IVPB Last administered on 01/16/19at 20:48; Admin Dose 100 MLS/HR; Start 01/16/19 at 21:00 Vancomycin HCl (Vanco Iv Per Pharmacy) VANCOMYCIN PER PHARMACY PER PROTOCOL XX ; Start 01/16/19 at 11:30 Diagnostic Test (Pha) (Accu-Chek) 1 ea Q1H XX Last administered on 01/17/19at 08:35; Admin Dose 1 EA; Start 01/16/19 at 19:00 Insulin Human Regular 100 unit/ Sodium Chloride 100 ml @ 0 mls/hr PER PROTOCOL IV Last administered on 01/16/19at 22:49; Admin Dose 4 MLS/HR; Start 01/16/19 at 19:00 Miscellaneous Information (* Miscellaneous Pharmacy Order) Treatment of Hypoglycemia: 1.BG 51... Per protocol XX ; Start 01/16/19 at 17:30 Dextrose (D50w Syringe) 25 ml Q15M PRN IV .DECREASED GLUCOSE; Start 01/16/19 at 17:30 Dextrose (D50w Syringe) 50 ml Q15M PRN IV .DECREASED GLUCOSE; Start 01/16/19 at 17:30 Potassium Chloride 40 meq/ Calcium Chloride 1 gm/Dextrose/ Sodium Chloride 1,030 ml @ 60 mls/hr [id number] IV Last administered on 01/16/19at 19:05; Admin Dose 60 MLS/HR; Start 01/16/19 at 19:00 Cefazolin Sodium 50 ml @ 100 mls/hr Q8H IVPB Last administered on 01/17/19at 01:33; Admin Dose 100 MLS/HR; Start 01/16/19 at 18:00; Stop 01/17/19 at 10:29 Hydromorphone HCl (Dilaudid) 0.2 mg Q15M PRN IV PAIN LEVEL 1-5; Start 01/16/19 at 17:30 Hydromorphone HCl (Dilaudid) 0.4 mg Q15M PRN IV PAIN LEVEL 6-10; Start 01/16/19 at 17:30 Oxycodone/ Acetaminophen (Percocet (5/ 325)) 1 tab Q3H PRN PO PAIN LEVEL 1-5; Start 01/16/19 at 17:30 Oxycodone/ Acetaminophen (Percocet (5/ 325)) 2 tab Q3H PRN PO PAIN LEVEL 6-10; Start 01/16/19 at 17:30 Ondansetron HCl (Zofran Inj) 4 mg Q6H PRN IV NAUSEA AND/OR VOMITING; Start 01/16/19 at 17:30 Famotidine (Pepcid Iv) 20 mg BID@08,20 IV Last administered on 01/16/19at 20:46; Admin Dose 20 MG; Start 01/16/19 at 20:00 Famotidine (Pepcid) 20 mg BID PO ; Start 01/16/19 at 21:00 Aspirin (Aspirin) 325 mg DAILY PO ; Start 01/17/19 at 09:00 Acetaminophen (Tylenol Tab) 650 mg Q3H PRN PO ELEVATED TEMPERATURE; Start 01/16/19 at 17:30 Potassium Chloride 50 ml @ 50 mls/hr SEE DIRECTION PRN IVPB K+ LEVEL Last administered on 01/17/19at 08:11; Admin Dose 50 MLS/HR; Start 01/16/19 at 17:30 Magnesium Sulfate/ Dextrose 100 ml @ 100 mls/hr PRN PRN IVPB PENDING LAB VALUE; Start 01/16/19 at 17:30 Nitroglycerin/ Dextrose 250 ml @ 1.5 mls/hr PER PROTOCOL IV ; Start 01/16/19 at 18:00 Dopamine HCl/ Dextrose 250 ml @ 5.138 mls/ hr PER PROTOCOL IV Last administered on 01/17/19at 01:31; Admin Dose 3.853 MLS/HR; Start 01/16/19 at 18:00 Propofol 100 ml @ 2.055 mls/ hr Q12H IV Last administered on 01/17/19at 04:17; Admin Dose 2.055 MLS/HR; Start 01/16/19 at 19:30 Midazolam HCl 50 ml @ 1 mls/hr TITRATE IV Last administered on 01/17/19at 03:04; Admin Dose 6 MLS/HR; Start 01/16/19 at 20:00 Phenylephrine HCl 40 mg/Dextrose 250 ml @ 37.5 mls/hr TITRATE IV Last administered on 01/17/19at 06:52; Admin Dose 88.13 MLS/HR; Start 01/16/19 at 21:00 Albumin Human 250 ml @ 250 mls/hr PRN PRN IV CVP <10 Last administered on 01/17/19at 01:37; Admin Dose 250 MLS/HR; Start 01/17/19 at 01:00 Vancomycin HCl 1.25 gm/Sodium Chloride 250 ml @ 83.333 mls/ hr Q24H IVPB ; Start 01/17/19 at 21:00 Fentanyl 100 ml @ 2.5 mls/hr TITRATE IV ; Start 01/17/19 at 09:00; Status UNV Assessment/Plan Hospital Course (Demo Recall) 1. Non-ST myocardial infarction with up trending cardiac enzymes.-overnight and then this am patient with uptrending cardiac enzymes. Now s/p LHC with mutivessel CAD and enmergent echo with decreased EF 30-35% - now post CABG, VS stable - con't IABP Rx 2:1 now. 2. Chest pain secondary to #1 - now resolved post CABG 3. Abnormal electrocardiogram with anterolateral deep ST depressions. 4. Hypertension-currently borderline hypotension - con't pressor support 5. Dyslipidemia. 6. Benign prostatic hypertrophy- Galvez in place 7. Prostate carcinoma. 8. History of hematuria recently. 9. CHF-systolic acute - improved urine output - antidiuresing 10. Anemia - blood Tx 2upRBC planned. RICO GONZALEZ MD Jan 17, 2019 09:02
[2019-01-17] MEDS: ASPIRIN 325 MG TAB PO SCH (09:54)
[2019-01-17] MEDS: TAMSULOSIN (SR) 0.4 MG CAP PO SCH ×2 (09:55→21:10)
[2019-01-17] MEDS: FAMOTIDINE 20 MG TAB PO SCH ×2 (09:55→21:10)
--- NOTE | 2019-01-17 09:57 | CONS ---
Assessment/Plan Assessment/Plan Assessment/Plan (Daily) Chest x-ray showing mild pulmonary edema. Possibly superimposed pneumonia as well. Ventilator setting; AC of 14, tidal volume 550, PEEP of 5, 30% FiO2. Patient is currently on Versed 5 mg an hour, insulin 3 units/h, dopamine 2 mcg/min. Intra-aortic balloon pump at 1:2 augmentation. Assessment and recommendations; 1. Patient admitted with acute NV leading to respiratory failure status post emergent CABG. 2. Pulmonary edema with likely superimposed pneumonia as well. Possibly aspiration. 3. History of hypertension 4. History of prostate cancer. 5. Anemia and thrombocytopenia. 6. Persistent mild CHF. 7. UTI. Continue current supportive care. Wean down pressor support as well as intra- aortic balloon pump augmentation as tolerated. Ventilator settings have been adjusted, tidal volume decreased to 500 ml as the patient currently is being mildly hyperventilated. Obtain follow-up chest x-ray 24 hours. Prognosis is guarded. 40 minutes of critical care time was spent evaluating the patient. Consultation Date/Type/Reason Admit Date/Time Jan 15, 2019 at 01:24 Date of Consultation: Jan 17, 2019 Type of Consult Pulmonary/critical care Patient is a 73-year-old male who was admitted because of Acute NV. Patient underwent emergent CABG yesterday. Postop patient could not be extubated and was transferred to ICU intubated. Patient also has remained hemodynamically unstable requiring intra-aortic balloon pump as well as pressor support. By the time I saw him, patient is on ventilator, orally intubated and sedated. Past medical history; 1. History of prostate cancer 2. Hypertension Medications; reviewed. Allergies; none. Social history, family history, occupational history not available. Review of systems; unable to be obtained. General exam; elderly male, orally intubated, sedated, currently in no distress. Date/Time of Note DATE: 01/17/19 TIME: 09:52 Past Medical History Medical History: no pertinent history Home Meds Active Scripts Sennosides/Docusate Sodium (Dok Plus Tablet) 1 Each Tablet, 2 TAB PO HS for 10 Days, #10 TAB 4 Refills Prov:ROMY ZAMORA MD 11/22/18 Acetaminophen* (Tylenol*) 325 Mg Tablet, 650 MG PO Q6H PRN for .PAIN 1-3 OR TEMP for 10 Days, TAB Prov:ROMY ZAMORA MD 11/22/18 Atorvastatin* (Atorvastatin*) 40 Mg Tablet, 40 MG PO HS for 30 Days, #30 TAB Prov:ROMY ZAOMRA MD 11/22/18 Tamsulosin Hcl* (Flomax*) 0.4 Mg Cap.er.24h, 0.4 MG PO BID for 14 Days, #30 CAP Prov:ROMY ZAMORA MD 11/22/18 Bicalutamide* (Casodex*) 50 Mg Tablet, 50 MG PO DAILY for 14 Days, #15 TAB Prov:ROMY ZAMORA MD 11/22/18 Reported Medications Mirabegron (Myrbetriq) 50 Mg Tab.er.24h, 25 MG PO DAILY, TAB 11/18/18 Lisinopril* (Lisinopril*) 10 Mg Tablet, 10 MG PO BID, #30 TAB 11/18/18 Esomeprazole Mag Trihydrate (Nexium) 40 Mg Capsule.dr, 40 MG PO DAILY, #30 CAP 11/18/18 Terazosin Hcl* (Terazosin Hcl*) 5 Mg Capsule, 5 MG PO HS, CAP 11/18/18 Fluticasone Propionate (Flonase Allergy Relief) 9.9 Ml [place].susp, 1 SPRAY NASAL DAILY, #1 BOTTLE TO EACH NOSTRIL 11/18/18 Metoprolol Tartrate* (Lopressor*) 25 Mg Tablet, 25 MG PO BID, #60 TAB 11/18/18 Aspirin* (Aspirin* EC) 81 Mg Tablet.dr, 81 MG PO DAILY, TAB 11/18/18 Amlodipine Besylate* (Amlodipine Besylate*) 10 Mg Tablet, 10 MG PO DAILY, #30 TAB 11/18/18 Medications Current Medications IV Flush (NS 3 ml) 3 ml PER PROTOCOL IV ; Start 01/15/19 at 01:30 Nitroglycerin (Nitroglycerin (Sl Tab) 0.4 Mg) 1 tab Q5M PRN SL .CHEST PAIN Last administered on 01/16/19at 00:19; Admin Dose 1 TAB; Start 01/15/19 at 01:30 Morphine Sulfate (morphine) 1 mg Q4H PRN IV .PAIN 7-10 Last administered on 01/15/19at 23:30; Admin Dose 1 MG; Start 01/15/19 at 01:30 Docusate Sodium (Colace) 100 mg Q12H PRN PO .CONSTIPATION; Start 01/15/19 at 01:30 Bisacodyl (Dulcolax) 5 mg DAILY PRN PO .CONSTIPATION; Start 01/15/19 at 01:30 Lisinopril (Zestril) 10 mg BID PO Last administered on 01/15/19at 20:44; Admin Dose 10 MG; Start 01/15/19 at 09:00; Status Hold Bicalutamide (Casodex) 50 mg DAILY PO ; Start 01/16/19 at 09:00 Tamsulosin HCl (Flomax) 0.4 mg BID PO Last administered on 01/16/19 08:00; Admin Dose 0.4 MG; Start 01/15/19 at 21:00 Terazosin HCl (Hytrin) 5 mg HS PO Last administered on 01/15/19at 20:43; Admin Dose 5 MG; Start 01/15/19 at 21:00; Status Hold Amlodipine Besylate (Norvasc) 10 mg DAILY PO ; Start 01/16/19 at 09:00; Status Hold Atorvastatin Calcium (Lipitor) 40 mg HS PO Last administered on 01/15/19 20:43; Admin Dose 40 MG; Start 01/15/19 at 21:00 Metoprolol Tartrate (Lopressor) 25 mg BID PO Last administered on 01/15/19 20:44; Admin Dose 25 MG; Start 01/15/19 at 21:00; Status Hold Heparin Sodium (Porcine) (Heparin (1000 Units/ml)) 4,000 unit PER PROTOCOL PRN IV aPTT<47; Start 01/15/19 at 22:00 Heparin Sodium (Porcine) 250 ml @ 8 mls/hr PER PROTOCOL IV Last administered on 01/15/19at 22:10; Admin Dose 8 MLS/HR; Start 01/15/19 at 22:00 Nitroglycerin (Nitroglycerin 2% Oint) 0.5 inch Q8 TD Last administered on 01/16/19 01:23; Admin Dose 0.5 INCH; Start 01/16/19 at 01:00; Status Hold Miscellaneous Information (* Miscellaneous Pharmacy Order) Hold all Metformin ... ONCE XX ; Start 01/16/19 at 11:00; Stop 01/18/19 at 10:59 Oxycodone/ Acetaminophen (Percocet (5/ 325)) 1 tab Q4H PRN PO PAIN; Start 01/16/19 at 11:00 Al Hydrox/Mg Hydrox/Simethicone (Mag-Al Plus) 30 ml Q4H PRN PO GASTROINTESTINAL UPSET; Start 01/16/19 at 11:00 Meropenem/Sodium Chloride 50 ml @ 100 mls/hr Q12 IVPB Last administered on 01/16/19at 20:48; Admin Dose 100 MLS/HR; Start 01/16/19 at 21:00 Vancomycin HCl (Vanco Iv Per Pharmacy) VANCOMYCIN PER PHARMACY PER PROTOCOL XX ; Start 01/16/19 at 11:30 Diagnostic Test (Pha) (Accu-Chek) 1 ea Q1H XX Last administered on 01/17/19at 08:35; Admin Dose 1 EA; Start 01/16/19 at 19:00 Insulin Human Regular 100 unit/ Sodium Chloride 100 ml @ 0 mls/hr PER PROTOCOL IV Last administered on 01/16/19at 22:49; Admin Dose 4 MLS/HR; Start 01/16/19 at 19:00 Miscellaneous Information (* Miscellaneous Pharmacy Order) Treatment of Hypo glycemia: 1.BG 51... Per protocol XX ; Start 01/16/19 at 17:30 Dextrose (D50w Syringe) 25 ml Q15M PRN IV .DECREASED GLUCOSE; Start 01/16/19 at 17:30 Dextrose (D50w Syringe) 50 ml Q15M PRN IV .DECREASED GLUCOSE; Start 01/16/19 at 17:30 Potassium Chloride 40 meq/ Calcium Chloride 1 gm/Dextrose/ Sodium Chloride 1,030 ml @ 60 mls/hr [id number] IV Last administered on 01/16/19at 19:05; Admin Dose 60 MLS/HR; Start 01/16/19 at 19:00 Cefazolin Sodium 50 ml @ 100 mls/hr Q8H IVPB Last administered on 01/17/19at 01:33; Admin Dose 100 MLS/HR; Start 01/16/19 at 18:00; Stop 01/17/19 at 10:29 Hydromorphone HCl (Dilaudid) 0.2 mg Q15M PRN IV PAIN LEVEL 1-5; Start 01/16/19 at 17:30 Hydromorphone HCl (Dilaudid) 0.4 mg Q15M PRN IV PAIN LEVEL 6-10; Start 01/16/19 at 17:30 Oxycodone/ Acetaminophen (Percocet (5/ 325)) 1 tab Q3H PRN PO PAIN LEVEL 1-5; Start 01/16/19 at 17:30 Oxycodone/ Acetaminophen (Percocet (5/ 325)) 2 tab Q3H PRN PO PAIN LEVEL 6-10; Start 01/16/19 at 17:30 Ondansetron HCl (Zofran Inj) 4 mg Q6H PRN IV NAUSEA AND/OR VOMITING; Start 01/16/19 at 17:30 Famotidine (Pepcid) 20 mg BID PO ; Start 01/16/19 at 21:00 Aspirin (Aspirin) 325 mg DAILY PO ; Start 01/17/19 at 09:00 Acetaminophen (Tylenol Tab) 650 mg Q3H PRN PO ELEVATED TEMPERATURE; Start 01/16/19 at 17:30 Potassium Chloride 50 ml @ 50 mls/hr SEE DIRECTION PRN IVPB K+ LEVEL Last administered on 01/17/19at 08:11; Admin Dose 50 MLS/HR; Start 01/16/19 at 17:30 Magnesium Sulfate/ Dextrose 100 ml @ 100 mls/hr PRN PRN IVPB PENDING LAB VALUE; Start 01/16/19 at 17:30 Nitroglycerin/ Dextrose 250 ml @ 1.5 mls/hr PER PROTOCOL IV ; Start 01/16/19 at 18:00 Dopamine HCl/ Dextrose 250 ml @ 5.138 mls/ hr PER PROTOCOL IV Last administered on 01/17/19at 01:31; Admin Dose 3.853 MLS/HR; Start 01/16/19 at 18:00 Propofol 100 ml @ 2.055 mls/ hr Q12H IV Last administered on 01/17/19at 04:17; Admin Dose 2.055 MLS/HR; Start 01/16/19 at 19:30 Midazolam HCl 50 ml @ 1 mls/hr TITRATE IV Last administered on 01/17/19at 03:04; Admin Dose 6 MLS/HR; Start 01/16/19 at 20:00 Phenylephrine HCl 40 mg/Dextrose 250 ml @ 37.5 mls/hr TITRATE IV Last administered on 01/17/19at 06:52; Admin Dose 88.13 MLS/HR; Start 01/16/19 at 21:00 Albumin Human 250 ml @ 250 mls/hr PRN PRN IV CVP <10 Last administered on 01/17/19at 01:37; Admin Dose 250 MLS/HR; Start 01/17/19 at 01:00 Vancomycin HCl 1.25 gm/Sodium Chloride 250 ml @ 83.333 mls/ hr Q24H IVPB ; Start 01/17/19 at 21:00 Fentanyl 100 ml @ 2.5 mls/hr TITRATE IV ; Start 01/17/19 at 10:00 Allergies: Coded Allergies: No Known Allergy (Unverified , 08/21/15) Past Surgical History Past Surgical Hx: no surgical history Social History Alcohol Use: none Smoking Status: Never smoker Drug Use: none Exam/Review of Systems Exam Vitals Vital Signs Date Temp Pulse Resp B/P (MAP) Pulse Ox O2 O2 Flow FiO2 Time Delivery Rate 01/17/19 93 19 85/42 (56) 100 09:15 01/17/19 99.6 09:00 01/17/19 Mechanical 06:30 Ventilator 01/17/19 30 05:22 01/16/19 5.0 00:15 Intake and Output 01/16/19 01/16/19 01/17/19 1515:00 23:00 07:00 IntakeIntake Total 1496.0 ml 3652.666 ml 1912.478 ml OutputOutput Total 300 ml 4409 ml 653 ml BalanceBalance 1196.0 ml -756.334 ml 1259.478 ml Exam H EENT exam; supple neck, positive JVD. No lymphadenopathy. Midline trachea. No thyromegaly. Orally intubated. Patient is edentulous. Chest exam; diminished breath sounds bilaterally. S1-S2 audible, no murmurs. Regular rhythm. Dressing applied to sternum. Left-sided chest tube in place. Abdomen exam; soft, no organomegaly. Bowel sounds are sluggish. Extremity exam; no peripheral edema. Pulses 1+. [employer] exam; patient is sedated. Results Result Diagram: 01/17/19 0438 01/17/19 0400 Results 24hrs Laboratory Tests Test 01/16/19 10:55 01/16/19 17:48 01/16/19 17:51 01/16/19 18:15 Activated 43.1 H 29.7 Partial Thrombo plast Time Bedside Glucose 122 White Blood 12.6 #H Count Red Blood Count 2.98 L Hemoglobin 9.0 L Hematocrit 26.5 L Mean 88.9 Corpuscular Volume Mean 30.2 Corpuscular Hemoglobin Mean 34.0 Corpuscular Hemoglobin Conc ent Red Cell 14.6 H Distribution Width Platelet Count 142 # Mean Platelet 10.1 Volume Immature 1.000 H Granulocytes % Neutrophils % 85.9 H Lymphocytes % 4.7 L Monocytes % 8.2 Eosinophils % 0.0 Basophils % 0.2 Nucleated Red 0.0 Blood Cells % Immature 0.120 H Granulocytes # Neutrophils # 10.9 H Lymphocytes # 0.6 L Monocytes # 1.0 H Eosinophils # 0.0 Basophils # 0.0 Nucleated Red 0.0 Blood Cells # Sodium Level 142 Potassium Level 3.4 L Chloride Level 102 Carbon Dioxide 27 Level Anion Gap 13 Blood Urea 23 H Nitrogen Creatinine 1.04 Est Glomerular Filtrat Rate mL/min Glucose Level 116 Calcium Level 8.4 Magnesium Level 2.9 H Prothrombin 16.8 H Time Prothrombin 1.3 Time Ratio INR 1.35 International Normalized Rati o Test 01/16/19 19:53 01/16/19 20:31 01/16/19 22:41 01/17/19 00:03 Bedside Glucose 138 215 203 Blood Gas BLMV Specimen Source Arterial Blood 01/16/2019 9:10:0 Date Drawn 0 PM Arterial Blood 7.465 H pH (Temp corrected ) Arterial Blood 35.6 pCO2 (Temp correct) Arterial Blood 259.1 H pO2 (Temp corrected ) Arterial Blood 25.0 HCO3 Arterial Blood 1.4 Base Excess Arterial Blood 99.0 Oxygen Saturati on Daniel Test N/A Arterial Blood A-Line Gas Puncture Site Arterial 0.3 Blood Carboxyhe moglobin Arterial Blood 0.3 Methemoglobin Mixed Venous 30.3 Blood PO2 Mixed Venous 63.3 L Blood O2 Saturation Mixed Venous 8.3 Blood Total Hemoglobi n Mixed Venous 62.9 Blood Oxyhemogl obin Mixed Venous 0.3 Bld Carboxyhemo globin Mixed Venous 0.3 Blood Methemogl obin Blood Gas A-a 201.7 H O2 Differential Oxyhemoglobin 98.4 Percent Blood Gas 37.0 Temperature Blood Gas 14.0 Respiration Rate Blood Gas 20 Actual Respiration Rat e Blood Gas VENT - AC Modality FiO2 70.0 Blood Gas Tidal 550.0 Volume Blood Gas Low 5.0 PEEP Setting Blood Gas 20.0 Inspiratory Pressure Blood Gas KM Notified Whom Blood Gas 01/16/2019 9:24:2 Notified Time 4 PM Test 01/17/19 01:01 01/17/19 02:00 01/17/19 03:02 01/17/19 04:00 Bedside Glucose 207 178 173 Sodium Level 143 Potassium Level 3.7 Chloride Level 105 Carbon Dioxide 27 Level Anion Gap 11 Blood Urea 24 H Nitrogen Creatinine 1.07 Est Glomerular Filtrat Rate mL/min Glucose Level 122 Calcium Level 8.6 Magnesium Level 2.2 Total Bilirubin 0.4 Direct 0.00 Bilirubin Indirect 0.4 Bilirubin Aspartate Amino 130 H Transf (AST/SGO T) Alanine 26 Aminotransferas e (ALT/SGPT) Alkaline 34 L Phosphatase Creatine Kinase 883 H Creatine Kinase 6.2 Index Creatinine 55.10 H Kinase MB (Mass) Troponin I 61.200 *H B-Type 52625 H Natriuretic Peptide Total Protein 5.8 L Albumin 3.6 Globulin 2.20 Albumin/Globuli 1.63 n Ratio Test 01/17/19 04:02 01/17/19 04:38 01/17/19 05:00 01/17/19 05:01 Bedside Glucose 134 123 White Blood 7.3 # Count Red Blood Count 2.35 #L Hemoglobin 7.0 #L Hematocrit 20.8 #L Mean 88.5 Corpuscular Volume Mean 29.8 Corpuscular Hemoglobin Mean 33.7 Corpuscular Hemoglobin Conc ent Red Cell 15.6 H Distribution Width Platelet Count 141 Mean Platelet 10.9 H Volume Immature 0.300 Granulocytes % Neutrophils % Segmented 71 Neutrophils % (Manual) Band 10 H Neutrophils % (Manual) Lymphocytes % Lymphocytes % 9 L (Manual) Monocytes % Monocytes % 10 (Manual) Eosinophils % Basophils % Nucleated Red 0.0 Blood Cells % Immature 0.020 Granulocytes # Neutrophils # Neutrophils # 5.2 (Manual) Band 0.7 H Neutrophils # Lymphocytes 0.6 L (Manual) Lymphocytes # Monocytes # Monocytes # 0.7 (Manual) Eosinophils # Basophils # Nucleated Red Blood Cells # Platelet NORMAL Estimate Polychromasia 2+ Poikilocytosis 1+ Anisocytosis 1+ Microcytosis 1+ Ovalocytes 1+ Prothrombin 17.2 H Time Prothrombin 1.3 Time Ratio INR 1.39 International Normalized Rati o Activated 49.9 H Partial Thrombo plast Time Blood Gas Blood arterial Specimen Source Arterial Blood 01/17/2019 5:00:3 Date Drawn 1 AM Arterial Blood 7.491 H pH (Temp corrected ) Arterial Blood 35.4 pCO2 (Temp correct) Arterial Blood 139.9 H pO2 (Temp corrected ) Arterial Blood 26.4 H HCO3 Arterial Blood 3.0 Base Excess Arterial Blood 98.2 Oxygen Saturati on Daniel Test N/A Arterial Blood A-Line Gas Puncture Site Arterial 0.3 Blood Carboxyhe moglobin Arterial Blood 0 Methemoglobin Blood Gas A-a 104.6 H O2 Differential Oxyhemoglobin 97.9 Percent Blood Gas 37.0 Temperature Blood Gas 14.0 Respiration Rate Blood Gas 19 Actual Respiration Rat e Blood Gas VENT - AC Modality FiO2 40.0 Blood Gas Tidal 550.0 Volume Blood Gas Low 5.0 PEEP Setting Blood Gas 22.0 Inspiratory Pressure Blood Gas KM Notified Whom Blood Gas 01/17/2019 5:09:5 Notified Time 5 AM Test 01/17/19 05:13 01/17/19 06:04 01/17/19 07:00 01/17/19 08:34 Lab Scanned BLOOD TRANSFUSI Report ON Bedside Glucose 104 119 110 Medications Medication Current Medications IV Flush (NS 3 ml) 3 ml PER PROTOCOL IV ; Start 01/15/19 at 01:30 Nitroglycerin (Nitroglycerin (Sl Tab) 0.4 Mg) 1 tab Q5M PRN SL .CHEST PAIN Last administered on 01/16/19at 00:19; Admin Dose 1 TAB; Start 01/15/19 at 01:30 Morphine Sulfate (morphine) 1 mg Q4H PRN IV .PAIN 7-10 Last administered on 01/15/19at 23:30; Admin Dose 1 MG; Start 01/15/19 at 01:30 Docusate Sodium (Colace) 100 mg Q12H PRN PO .CONSTIPATION; Start 01/15/19 at 01:30 Bisacodyl (Dulcolax) 5 mg DAILY PRN PO .CONSTIPATION; Start 01/15/19 at 01:30 Lisinopril (Zestril) 10 mg BID PO Last administered on 01/15/19at 20:44; Admin Dose 10 MG; Start 01/15/19 at 09:00; Status Hold Bicalutamide (Casodex) 50 mg DAILY PO ; Start 01/16/19 at 09:00 Tamsulosin HCl (Flomax) 0.4 mg BID PO Last administered on 01/16/19at 08:00; Admin Dose 0.4 MG; Start 01/15/19 at 21:00 Terazosin HCl (Hytrin) 5 mg HS PO Last administered on 01/15/19at 20:43; Admin Dose 5 MG; Start 01/15/19 at 21:00; Status Hold Amlodipine Besylate (Norvasc) 10 mg DAILY PO ; Start 01/16/19 at 09:00; Status Hold Atorvastatin Calcium (Lipitor) 40 mg HS PO Last administered on 01/15/19 20:43; Admin Dose 40 MG; Start 01/15/19 at 21:00 Metoprolol Tartrate (Lopressor) 25 mg BID PO Last administered on 01/15/19at 20:44; Admin Dose 25 MG; Start 01/15/19 at 21:00; Status Hold Heparin Sodium (Porcine) (Heparin (1000 Units/ml)) 4,000 unit PER PROTOCOL PRN IV aPTT<47; Start 01/15/19 at 22:00 Heparin Sodium (Porcine) 250 ml @ 8 mls/hr PER PROTOCOL IV Last administered on 01/15/19at 22:10; Admin Dose 8 MLS/HR; Start 01/15/19 at 22:00 Nitroglycerin (Nitroglycerin 2% Oint) 0.5 inch Q8 TD Last administered on 01/16/19at 01:23; Admin Dose 0.5 INCH; Start 01/16/19 at 01:00; Status Hold Miscellaneous Information (* Miscellaneous Pharmacy Order) Hold all Metformin ... ONCE XX ; Start 01/16/19 at 11:00; Stop 01/18/19 at 10:59 Oxycodone/ Acetaminophen (Percocet (5/ 325)) 1 tab Q4H PRN PO PAIN; Start 01/16/19 at 11:00 Al Hydrox/Mg Hydrox/Simethicone (Mag-Al Plus) 30 ml Q4H PRN PO GASTROINTESTINAL UPSET; Start 01/16/19 at 11:00 Meropenem/Sodium Chloride 50 ml @ 100 mls/hr Q12 IVPB Last administered on 01/16/19at 20:48; Admin Dose 100 MLS/HR; Start 01/16/19 at 21:00 Vancomycin HCl (Vanco Iv Per Pharmacy) VANCOMYCIN PER PHARMACY PER PROTOCOL XX ; Start 01/16/19 at 11:30 Diagnostic Test (Pha) (Accu-Chek) 1 ea Q1H XX Last administered on 01/17/19at 08:35; Admin Dose 1 EA; Start 01/16/19 at 19:00 Insulin Human Regular 100 unit/ Sodium Chloride 100 ml @ 0 mls/hr PER PROTOCOL IV Last administered on 01/16/19at 22:49; Admin Dose 4 MLS/HR; Start 01/16/19 at 19:00 Miscellaneous Information (* Miscellaneous Pharmacy Order) Treatment of Hypoglycemia: 1.BG 51... Per protocol XX ; Start 01/16/19 at 17:30 Dextrose (D50w Syringe) 25 ml Q15M PRN IV .DECREASED GLUCOSE; Start 01/16/19 at 17:30 Dextrose (D50w Syringe) 50 ml Q15M PRN IV .DECREASED GLUCOSE; Start 01/16/19 at 17:30 Potassium Chloride 40 meq/ Calcium Chloride 1 gm/Dextrose/ Sodium Chloride 1,030 ml @ 60 mls/hr [id number] IV Last administered on 01/16/19at 19:05; Admin Dose 60 MLS/HR; Start 01/16/19 at 19:00 Cefazolin Sodium 50 ml @ 100 mls/hr Q8H IVPB Last administered on 01/17/19at 01:33; Admin Dose 100 MLS/HR; Start 01/16/19 at 18:00; Stop 01/17/19 at 10:29 Hydromorphone HCl (Dilaudid) 0.2 mg Q15M PRN IV PAIN LEVEL 1-5; Start 01/16/19 at 17:30 Hydromorphone HCl (Dilaudid) 0.4 mg Q15M PRN IV PAIN LEVEL 6-10; Start 01/16/19 at 17:30 Oxycodone/ Acetaminophen (Percocet (5/ 325)) 1 tab Q3H PRN PO PAIN LEVEL 1-5; Start 01/16/19 at 17:30 Oxycodone/ Acetaminophen (Percocet (5/ 325)) 2 tab Q3H PRN PO PAIN LEVEL 6-10; Start 01/16/19 at 17:30 Ondansetron HCl (Zofran Inj) 4 mg Q6H PRN IV NAUSEA AND/OR VOMITING; Start 01/16/19 at 17:30 Famotidine (Pepcid) 20 mg BID PO ; Start 01/16/19 at 21:00 Aspirin (Aspirin) 325 mg DAILY PO ; Start 01/17/19 at 09:00 Acetaminophen (Tylenol Tab) 650 mg Q3H PRN PO ELEVATED TEMPERATURE; Start 01/16/19 at 17:30 Potassium Chloride 50 ml @ 50 mls/hr SEE DIRECTION PRN IVPB K+ LEVEL Last administered on 01/17/19 08:11; Admin Dose 50 MLS/HR; Start 01/16/19 at 17:30 Magnesium Sulfate/ Dextrose 100 ml @ 100 mls/hr PRN PRN IVPB PENDING LAB VALUE; Start 01/16/19 at 17:30 Nitroglycerin/ Dextrose 250 ml @ 1.5 mls/hr PER PROTOCOL IV ; Start 01/16/19 at 18:00 Dopamine HCl/ Dextrose 250 ml @ 5.138 mls/ hr PER PROTOCOL IV Last administered on 01/17/19 01:31; Admin Dose 3.853 MLS/HR; Start 01/16/19 at 18:00 Propofol 100 ml @ 2.055 mls/ hr Q12H IV Last administered on 01/17/19 04:17; Admin Dose 2.055 MLS/HR; Start 01/16/19 at 19:30 Midazolam HCl 50 ml @ 1 mls/hr TITRATE IV Last administered on 01/17/19at 03:04; Admin Dose 6 MLS/HR; Start 01/16/19 at 20:00 Phenylephrine HCl 40 mg/Dextrose 250 ml @ 37.5 mls/hr TITRATE IV Last administered on 01/17/19 06:52; Admin Dose 88.13 MLS/HR; Start 01/16/19 at 21:00 Albumin Human 250 ml @ 250 mls/hr PRN PRN IV CVP <10 Last administered on 01/17/19at 01:37; Admin Dose 250 MLS/HR; Start 01/17/19 at 01:00 Vancomycin HCl 1.25 gm/Sodium Chloride 250 ml @ 83.333 mls/ hr Q24H IVPB ; Start 01/17/19 at 21:00 Fentanyl 100 ml @ 2.5 mls/hr TITRATE IV ; Start 01/17/19 at 10:00 S[employer] SHEARER Jan 17, 2019 09:57
[2019-01-17] MEDS: MEROPENEM 1 GM/50ML(PMX) 50 ML IVPB SCH ×2 (09:59→21:10)
[2019-01-17] MEDS: FENTAnyl (DRIP) 1000 mcg/100mL 100 ML IV SCH (10:08)
[2019-01-17] MEDS ORDERED: PHENYLephrine 80 MG in DEXTROSE 5% 242 ML IV SCH (14:00)
--- NOTE | 2019-01-17 15:03 | CONS ---
Assessment/Plan Assessment/Plan Hospital Course (Demo Recall) Patient remains intubated on Skinny-Synephrine drip E is also on balloon pump in no distress. T-max 100.1 T-current 100 WBC 7.3 H&H 7 and 20.8 platelets 141 bands 10 BUN 24 creatinine 1.07 Microbiology: Blood culture on admission grew Citrobacter free on day, urine culture grew Corynebacterium species Indwelling: Endotracheal tube orogastric tube, right IJ [place], chest tubes, balloon pump, Galvez catheter, lower extremity SAEED Antimicrobials: Vancomycin, meropenem Physical examination: Well-developed well-nourished elderly man who is intubated sedated in no distress. Head atraumatic normocephalic sclera nonicteric. Buccal mucosa dry. Neck is supple chest rise symmetrical breath sounds diminished at bases. Heart: S1-S2. Abdomen distended, hypoactive bowel tones. Extremities mottled and cyanotic. Assessment: 1. Septic shock, possibly also cardiogenic 2. Gram-negative david bacteremia likely secondary to UTI 3. Pulmonary edema with superimposed pneumonia, possible aspiration 3. Acute NE status post emergency CABG 01/16/19 4. History of prostate cancer 5. History of hypertension 6. Acute anemia Plan: Patient is hemodynamically unstable, on broad-spectrum antibiotics. Will repeat blood sputum and urine cultures Consultation Date/Type/Reason Admit Date/Time Jan 15, 2019 at 01:24 Initial Consult Date 01/17/19 Type of Consult id Requesting Provider: NEFTALI LYNN Date/Time of Note DATE: 01/17/19 TIME: 15:03 Exam/Review of Systems Exam Vitals Vital Signs Date Temp Pulse Resp B/P (MAP) Pulse Ox O2 O2 Flow FiO2 Time Delivery Rate 01/17/19 79 19 81/42 (55) 100 14:15 01/17/19 100.0 14:00 01/17/19 30 11:00 01/17/19 [place] 06:30 l Ventilato r 01/16/19 5.0 00:15 Intake and Output 01/16/19 01/16/19 01/17/19 1515:00 23:00 07:00 IntakeIntake Total 1496.0 ml 3652.666 ml 1912.478 ml OutputOutput Total 300 ml 4409 ml 744 ml BalanceBalance 1196.0 ml -756.334 ml 1168.478 ml Results Result Diagram: 01/17/19 0438 01/17/19 0400 Results 24hrs Laboratory Tests Test 01/16/19 17:48 01/16/19 17:51 01/16/19 18:15 01/16/19 19:53 Bedside Glucose 122 138 White Blood 12.6 #H Count Red Blood Count 2.98 L Hemoglobin 9.0 L Hematocrit 26.5 L Mean 88.9 Corpuscular Volume Mean 30.2 Corpuscular Hemoglobin Mean 34.0 Corpuscular Hemoglobin Conc ent Red Cell 14.6 H Distribution Width Platelet Count 142 # Mean Platelet 10.1 Volume Immature 1.000 H Granulocytes % Neutrophils % 85.9 H Lymphocytes % 4.7 L Monocytes % 8.2 Eosinophils % 0.0 Basophils % 0.2 Nucleated Red 0.0 Blood Cells % Immature 0.120 H Granulocytes # Neutrophils # 10.9 H Lymphocytes # 0.6 L Monocytes # 1.0 H Eosinophils # 0.0 Basophils # 0.0 Nucleated Red 0.0 Blood Cells # Sodium Level 142 Potassium Level 3.4 L Chloride Level 102 Carbon Dioxide 27 Level Anion Gap 13 Blood Urea 23 H Nitrogen Creatinine 1.04 Est Glomerular Filtrat Rate mL/min Glucose Level 116 Calcium Level 8.4 Magnesium Level 2.9 H Prothrombin 16.8 H Time Prothrombin 1.3 Time Ratio INR 1.35 International Normalized Rati o Activated 29.7 Partial Thrombo plast Time Test 01/16/19 20:31 01/16/19 22:41 01/17/19 00:03 01/17/19 01:01 Blood Gas BLMV Specimen Source Arterial Blood 01/16/2019 9:10:0 Date Drawn 0 PM Arterial Blood 7.465 H pH (Temp corrected ) Arterial Blood 35.6 pCO2 (Temp correct) Arterial Blood 259.1 H pO2 (Temp corrected ) Arterial Blood 25.0 HCO3 Arterial Blood 1.4 Base Excess Arterial Blood 99.0 Oxygen Saturati on Daniel Test N/A Arterial Blood A-Line Gas Puncture Site Arterial 0.3 Blood Carboxyhe moglobin Arterial Blood 0.3 Methemoglobin Mixed Venous 30.3 Blood PO2 Mixed Venous 63.3 L Blood O2 Saturation Mixed Venous 8.3 Blood Total Hemoglobi n Mixed Venous 62.9 Blood Oxyhemogl obin Mixed Venous 0.3 Bld Carboxyhemo globin Mixed Venous 0.3 Blood Methemogl obin Blood Gas A-a 201.7 H O2 Differential Oxyhemoglobin 98.4 Percent Blood Gas 37.0 Temperature Blood Gas 14.0 Respiration Rate Blood Gas 20 Actual Respiration Rat e Blood Gas VENT - AC Modality FiO2 70.0 Blood Gas Tidal 550.0 Volume Blood Gas Low 5.0 PEEP Setting Blood Gas 20.0 Inspiratory Pressure Blood Gas KM Notified Whom Blood Gas 01/16/2019 9:24:2 Notified Time 4 PM Bedside Glucose 215 203 207 Test 01/17/19 02:00 01/17/19 03:02 01/17/19 04:00 01/17/19 04:02 Bedside Glucose 178 173 134 Sodium Level 143 Potassium Level 3.7 Chloride Level 105 Carbon Dioxide 27 Level Anion Gap 11 Blood Urea 24 H Nitrogen Creatinine 1.07 Est Glomerular Filtrat Rate mL/min Glucose Level 122 Calcium Level 8.6 Magnesium Level 2.2 Total Bilirubin 0.4 Direct 0.00 Bilirubin Indirect 0.4 Bilirubin Aspartate Amino 130 H Transf (AST/SGO T) Alanine 26 Aminotransferas e (ALT/SGPT) Alkaline 34 L Phosphatase Creatine Kinase 883 H Creatine Kinase 6.2 Index Creatinine 55.10 H Kinase MB (Mass) Troponin I 61.200 *H B-Type 76948 H Natriuretic Peptide Total Protein 5.8 L Albumin 3.6 Globulin 2.20 Albumin/Globuli 1.63 n Ratio Test 01/17/19 04:38 01/17/19 05:00 01/17/19 05:01 01/17/19 05:13 White Blood 7.3 # Count Red Blood Count 2.35 #L Hemoglobin 7.0 #L Hematocrit 20.8 #L Mean 88.5 Corpuscular Volume Mean 29.8 Corpuscular Hemoglobin Mean 33.7 Corpuscular Hemoglobin Conc ent Red Cell 15.6 H Distribution Width Platelet Count 141 Mean Platelet 10.9 H Volume Immature 0.300 Granulocytes % Neutrophils % Segmented 71 Neutrophils % (Manual) Band 10 H Neutrophils % (Manual) Lymphocytes % Lymphocytes % 9 L (Manual) Monocytes % Monocytes % 10 (Manual) Eosinophils % Basophils % Nucleated Red 0.0 Blood Cells % Immature 0.020 Granulocytes # Neutrophils # Neutrophils # 5.2 (Manual) Band 0.7 H Neutrophils # Lymphocytes 0.6 L (Manual) Lymphocytes # Monocytes # Monocytes # 0.7 (Manual) Eosinophils # Basophils # Nucleated Red Blood Cells # Platelet NORMAL Estimate Polychromasia 2+ Poikilocytosis 1+ Anisocytosis 1+ Microcytosis 1+ Ovalocytes 1+ Prothrombin 17.2 H Time Prothrombin 1.3 Time Ratio INR 1.39 International Normalized Rati o Activated 49.9 H Partial Thrombo plast Time Blood Gas Blood arterial Specimen Source Arterial Blood 01/17/2019 5:00:3 Date Drawn 1 AM Arterial Blood 7.491 H pH (Temp corrected ) Arterial Blood 35.4 pCO2 (Temp correct) Arterial Blood 139.9 H pO2 (Temp corrected ) Arterial Blood 26.4 H HCO3 Arterial Blood 3.0 Base Excess Arterial Blood 98.2 Oxygen Saturati on Daniel Test N/A Arterial Blood A-Line Gas Puncture Site Arterial 0.3 Blood Carboxyhe moglobin Arterial Blood 0 Methemoglobin Blood Gas A-a 104.6 H O2 Differential Oxyhemoglobin 97.9 Percent Blood Gas 37.0 Temperature Blood Gas 14.0 Respiration Rate Blood Gas 19 Actual Respiration Rat e Blood Gas VENT - AC Modality FiO2 40.0 Blood Gas Tidal 550.0 Volume Blood Gas Low 5.0 PEEP Setting Blood Gas 22.0 Inspiratory Pressure Blood Gas KM Notified Whom Blood Gas 01/17/2019 5:09:5 Notified Time 5 AM Bedside Glucose 123 Lab Scanned BLOOD TRANSFUSI Report ON Test 01/17/19 06:04 01/17/19 07:00 01/17/19 08:34 01/17/19 10:39 Bedside Glucose 104 119 110 82 Test 01/17/19 12:10 01/17/19 14:37 Bedside Glucose 112 120 Medications Medication Current Medications IV Flush (NS 3 ml) 3 ml PER PROTOCOL IV ; Start 01/15/19 at 01:30 Nitroglycerin (Nitroglycerin (Sl Tab) 0.4 Mg) 1 tab Q5M PRN SL .CHEST PAIN Last administered on 01/16/19at 00:19; Admin Dose 1 TAB; Start 01/15/19 at 01:30 Morphine Sulfate (morphine) 1 mg Q4H PRN IV .PAIN 7-10 Last administered on 01/15/19at 23:30; Admin Dose 1 MG; Start 01/15/19 at 01:30 Docusate Sodium (Colace) 100 mg Q12H PRN PO .CONSTIPATION; Start 01/15/19 at 01:30 Bisacodyl (Dulcolax) 5 mg DAILY PRN PO .CONSTIPATION; Start 01/15/19 at 01:30 Lisinopril (Zestril) 10 mg BID PO Last administered on 01/15/19 20:44; Admin Dose 10 MG; Start 01/15/19 at 09:00; Status Hold Bicalutamide (Casodex) 50 mg DAILY PO ; Start 01/16/19 at 09:00 Tamsulosin HCl (Flomax) 0.4 mg BID PO Last administered on 01/17/19 09:55; Admin Dose 0.4 MG; Start 01/15/19 at 21:00 Terazosin HCl (Hytrin) 5 mg HS PO Last administered on 01/15/19 20:43; Admin Dose 5 MG; Start 01/15/19 at 21:00; Status Hold Amlodipine Besylate (Norvasc) 10 mg DAILY PO ; Start 01/16/19 at 09:00; Status Hold Atorvastatin Calcium (Lipitor) 40 mg HS PO Last administered on 01/15/19 20:43; Admin Dose 40 MG; Start 01/15/19 at 21:00 Metoprolol Tartrate (Lopressor) 25 mg BID PO Last administered on 01/15/19 20:44; Admin Dose 25 MG; Start 01/15/19 at 21:00; Status Hold Heparin Sodium (Porcine) (Heparin (1000 Units/ml)) 4,000 unit PER PROTOCOL PRN IV aPTT<47; Start 01/15/19 at 22:00 Heparin Sodium (Porcine) 250 ml @ 8 mls/hr PER PROTOCOL IV Last administered on 01/15/19 22:10; Admin Dose 8 MLS/HR; Start 01/15/19 at 22:00 Nitroglycerin (Nitroglycerin 2% Oint) 0.5 inch Q8 TD Last administered on 01/16/19 01:23; Admin Dose 0.5 INCH; Start 01/16/19 at 01:00; Status Hold Miscellaneous Information (* Miscellaneous Pharmacy Order) Hold all Metformin ... ONCE XX Last administered on 01/17/19 11:07; Admin Dose 1 EA; Start 01/16/19 at 11:00; Stop 01/18/19 at 10:59 Oxycodone/ Acetaminophen (Percocet (5/ 325)) 1 tab Q4H PRN PO PAIN; Start 01/16/19 at 11:00 Al Hydrox/Mg Hydrox/Simethicone (Mag-Al Plus) 30 ml Q4H PRN PO GASTROINTESTINAL UPSET; Start 01/16/19 at 11:00 Meropenem/Sodium Chloride 50 ml @ 100 mls/hr Q12 IVPB Last administered on 01/17/19at 09:59; Admin Dose 100 MLS/HR; Start 01/16/19 at 21:00 Vancomycin HCl (Vanco Iv Per Pharmacy) VANCOMYCIN PER PHARMACY PER PROTOCOL XX ; Start 01/16/19 at 11:30 Diagnostic Test (Pha) (Accu-Chek) 1 ea Q1H XX Last administered on 01/17/19at 14:39; Admin Dose 1 EA; Start 01/16/19 at 19:00 Insulin Human Regular 100 unit/ Sodium Chloride 100 ml @ 0 mls/hr PER PROTOCOL IV Last administered on 01/16/19at 22:49; Admin Dose 4 MLS/HR; Start 01/16/19 at 19:00 Miscellaneous Information (* Miscellaneous Pharmacy Order) Treatment of Hypoglycemia: 1.BG 51... Per protocol XX ; Start 01/16/19 at 17:30 Dextrose (D50w Syringe) 25 ml Q15M PRN IV .DECREASED GLUCOSE; Start 01/16/19 at 17:30 Dextrose (D50w Syringe) 50 ml Q15M PRN IV .DECREASED GLUCOSE; Start 01/16/19 at 17:30 Potassium Chloride 40 meq/ Calcium Chloride 1 gm/Dextrose/ Sodium Chloride 1,030 ml @ 60 mls/hr [id number] IV Last administered on 01/16/19at 19:05; Admin Dose 60 MLS/HR; Start 01/16/19 at 19:00 Hydromorphone HCl (Dilaudid) 0.2 mg Q15M PRN IV PAIN LEVEL 1-5; Start 01/16/19 at 17:30 Hydromorphone HCl (Dilaudid) 0.4 mg Q15M PRN IV PAIN LEVEL 6-10; Start 01/16/19 at 17:30 Oxycodone/ Acetaminophen (Percocet (5/ 325)) 1 tab Q3H PRN PO PAIN LEVEL 1-5; Start 01/16/19 at 17:30 Oxycodone/ Acetaminophen (Percocet (5/ 325)) 2 tab Q3H PRN PO PAIN LEVEL 6-10; Start 01/16/19 at 17:30 Ondansetron HCl (Zofran Inj) 4 mg Q6H PRN IV NAUSEA AND/OR VOMITING; Start 01/16/19 at 17:30 Famotidine (Pepcid) 20 mg BID PO Last administered on 01/17/19 09:55; Admin Dose 20 MG; Start 01/16/19 at 21:00 Aspirin (Aspirin) 325 mg DAILY PO Last administered on 01/17/19 09:54; Admin Dose 325 MG; Start 01/17/19 at 09:00 Acetaminophen (Tylenol Tab) 650 mg Q3H PRN PO ELEVATED TEMPERATURE; Start 01/16/19 at 17:30 Potassium Chloride 50 ml @ 50 mls/hr SEE DIRECTION PRN IVPB K+ LEVEL Last administered on 01/17/19 09:51; Admin Dose 50 MLS/HR; Start 01/16/19 at 17:30 Magnesium Sulfate/ Dextrose 100 ml @ 100 mls/hr PRN PRN IVPB PENDING LAB VALUE; Start 01/16/19 at 17:30 Nitroglycerin/ Dextrose 250 ml @ 1.5 mls/hr PER PROTOCOL IV ; Start 01/16/19 at 18:00 Dopamine HCl/ Dextrose 250 ml @ 5.138 mls/ hr PER PROTOCOL IV Last administered on 01/17/19 01:31; Admin Dose 3.853 MLS/HR; Start 01/16/19 at 18:00 Propofol 100 ml @ 2.055 mls/ hr Q12H IV Last administered on 01/17/19 04:17; Admin Dose 2.055 MLS/HR; Start 01/16/19 at 19:30 Midazolam HCl 50 ml @ 1 mls/hr TITRATE IV Last administered on 01/17/19 09:57; Admin Dose 5 MLS/HR; Start 01/16/19 at 20:00 Albumin Human 250 ml @ 250 mls/hr PRN PRN IV CVP <10 Last administered on 01/17/19 01:37; Admin Dose 250 MLS/HR; Start 01/17/19 at 01:00 Vancomycin HCl 1.25 gm/Sodium Chloride 250 ml @ 83.333 mls/ hr Q24H IVPB ; Start 01/17/19 at 21:00 Fentanyl 100 ml @ 2.5 mls/hr TITRATE IV Last administered on 01/17/19at 10:08; Admin Dose 2.5 MLS/HR; Start 01/17/19 at 10:00 Phenylephrine HCl 80 mg/Dextrose 250 ml @ 18.75 mls/ hr TITRATE IV ; Start 01/17/19 at 14:00 NORMA PRINCE NP Jan 17, 2019 15:03
--- NOTE | 2019-01-17 15:40 | PN ---
Date/Time of Note Date/Time of Note DATE: 01/17/19 TIME: 15:39 Objective Vitals Vital Signs Date Temp Pulse Resp B/P (MAP) Pulse Ox O2 O2 Flow FiO2 Time Delivery Rate 01/17/19 100.2 79 21 115/60 100 15:00 (78) 01/17/19 30 11:00 01/17/19 [place] 06:30 l Ventilato r 01/16/19 5.0 00:15 Intake and Output 01/16/19 01/16/19 01/17/19 1515:00 23:00 07:00 IntakeIntake Total 1496.0 ml 3652.666 ml 1912.478 ml OutputOutput Total 300 ml 4409 ml 744 ml BalanceBalance 1196.0 ml -756.334 ml 1168.478 ml Results Result Diagram: 01/17/19 0438 01/17/19 0400 Medications Medications Current Medications IV Flush (NS 3 ml) 3 ml PER PROTOCOL IV ; Start 01/15/19 at 01:30 Nitroglycerin (Nitroglycerin (Sl Tab) 0.4 Mg) 1 tab Q5M PRN SL .CHEST PAIN Last administered on 01/16/19at 00:19; Admin Dose 1 TAB; Start 01/15/19 at 01:30 Morphine Sulfate (morphine) 1 mg Q4H PRN IV .PAIN 7-10 Last administered on 01/15/19at 23:30; Admin Dose 1 MG; Start 01/15/19 at 01:30 Docusate Sodium (Colace) 100 mg Q12H PRN PO .CONSTIPATION; Start 01/15/19 at 01:30 Bisacodyl (Dulcolax) 5 mg DAILY PRN PO .CONSTIPATION; Start 01/15/19 at 01:30 Lisinopril (Zestril) 10 mg BID PO Last administered on 01/15/19at 20:44; Admin Dose 10 MG; Start 01/15/19 at 09:00; Status Hold Bicalutamide (Casodex) 50 mg DAILY PO ; Start 01/16/19 at 09:00 Tamsulosin HCl (Flomax) 0.4 mg BID PO Last administered on 01/17/19at 09:55; Admin Dose 0.4 MG; Start 01/15/19 at 21:00 Terazosin HCl (Hytrin) 5 mg HS PO Last administered on 01/15/19 20:43; Admin Dose 5 MG; Start 01/15/19 at 21:00; Status Hold Amlodipine Besylate (Norvasc) 10 mg DAILY PO ; Start 01/16/19 at 09:00; Status Hold Atorvastatin Calcium (Lipitor) 40 mg HS PO Last administered on 01/15/19 20:43; Admin Dose 40 MG; Start 01/15/19 at 21:00 Metoprolol Tartrate (Lopressor) 25 mg BID PO Last administered on 01/15/19 20:44; Admin Dose 25 MG; Start 01/15/19 at 21:00; Status Hold Heparin Sodium (Porcine) (Heparin (1000 Units/ml)) 4,000 unit PER PROTOCOL PRN IV aPTT<47; Start 01/15/19 at 22:00 Heparin Sodium (Porcine) 250 ml @ 8 mls/hr PER PROTOCOL IV Last administered on 01/15/19 22:10; Admin Dose 8 MLS/HR; Start 01/15/19 at 22:00 Nitroglycerin (Nitroglycerin 2% Oint) 0.5 inch Q8 TD Last administered on 01/16/19 01:23; Admin Dose 0.5 INCH; Start 01/16/19 at 01:00; Status Hold Miscellaneous Information (* Miscellaneous Pharmacy Order) Hold all Metformin ... ONCE XX Last administered on 01/17/19 11:07; Admin Dose 1 EA; Start 01/16/19 at 11:00; Stop 01/18/19 at 10:59 Oxycodone/ Acetaminophen (Percocet (5/ 325)) 1 tab Q4H PRN PO PAIN; Start 01/16/19 at 11:00 Al Hydrox/Mg Hydrox/Simethicone (Mag-Al Plus) 30 ml Q4H PRN PO GASTROINTESTINAL UPSET; Start 01/16/19 at 11:00 Meropenem/Sodium Chloride 50 ml @ 100 mls/hr Q12 IVPB Last administered on 01/17/19at 09:59; Admin Dose 100 MLS/HR; Start 01/16/19 at 21:00 Vancomycin HCl (Vanco Iv Per Pharmacy) VANCOMYCIN PER PHARMACY PER PROTOCOL XX ; Start 01/16/19 at 11:30 Diagnostic Test (Pha) (Accu-Chek) 1 ea Q1H XX Last administered on 01/17/19at 14:39; Admin Dose 1 EA; Start 01/16/19 at 19:00 Insulin Human Regular 100 unit/ Sodium Chloride 100 ml @ 0 mls/hr PER PROTOCOL IV Last administered on 01/16/19at 22:49; Admin Dose 4 MLS/HR; Start 01/16/19 at 19:00 Miscellaneous Information (* Miscellaneous Pharmacy Order) Treatment of Hypoglycemia: 1.BG 51... Per protocol XX ; Start 01/16/19 at 17:30 Dextrose (D50w Syringe) 25 ml Q15M PRN IV .DECREASED GLUCOSE; Start 01/16/19 at 17:30 Dextrose (D50w Syringe) 50 ml Q15M PRN IV .DECREASED GLUCOSE; Start 01/16/19 at 17:30 Potassium Chloride 40 meq/ Calcium Chloride 1 gm/Dextrose/ Sodium Chloride 1,030 ml @ 60 mls/hr [id number] IV Last administered on 01/16/19at 19:05; Admin Dose 60 MLS/HR; Start 01/16/19 at 19:00 Hydromorphone HCl (Dilaudid) 0.2 mg Q15M PRN IV PAIN LEVEL 1-5; Start 01/16/19 at 17:30 Hydromorphone HCl (Dilaudid) 0.4 mg Q15M PRN IV PAIN LEVEL 6-10; Start 01/16/19 at 17:30 Oxycodone/ Acetaminophen (Percocet (5/ 325)) 1 tab Q3H PRN PO PAIN LEVEL 1-5; Start 01/16/19 at 17:30 Oxycodone/ Acetaminophen (Percocet (5/ 325)) 2 tab Q3H PRN PO PAIN LEVEL 6-10; Start 01/16/19 at 17:30 Ondansetron HCl (Zofran Inj) 4 mg Q6H PRN IV NAUSEA AND/OR VOMITING; Start 01/16/19 at 17:30 Famotidine (Pepcid) 20 mg BID PO Last administered on 01/17/19at 09:55; Admin Dose 20 MG; Start 01/16/19 at 21:00 Aspirin (Aspirin) 325 mg DAILY PO Last administered on 01/17/19at 09:54; Admin Dose 325 MG; Start 01/17/19 at 09:00 Acetaminophen (Tylenol Tab) 650 mg Q3H PRN PO ELEVATED TEMPERATURE; Start 01/16/19 at 17:30 Potassium Chloride 50 ml @ 50 mls/hr SEE DIRECTION PRN IVPB K+ LEVEL Last administered on 01/17/19at 09:51; Admin Dose 50 MLS/HR; Start 01/16/19 at 17:30 Magnesium Sulfate/ Dextrose 100 ml @ 100 mls/hr PRN PRN IVPB PENDING LAB VALUE; Start 01/16/19 at 17:30 Nitroglycerin/ Dextrose 250 ml @ 1.5 mls/hr PER PROTOCOL IV ; Start 01/16/19 at 18:00 Dopamine HCl/ Dextrose 250 ml @ 5.138 mls/ hr PER PROTOCOL IV Last administered on 01/17/19 01:31; Admin Dose 3.853 MLS/HR; Start 01/16/19 at 18:00 Propofol 100 ml @ 2.055 mls/ hr Q12H IV Last administered on 01/17/19 04:17; Admin Dose 2.055 MLS/HR; Start 01/16/19 at 19:30 Midazolam HCl 50 ml @ 1 mls/hr TITRATE IV Last administered on 01/17/19 09:57; Admin Dose 5 MLS/HR; Start 01/16/19 at 20:00 Albumin Human 250 ml @ 250 mls/hr PRN PRN IV CVP <10 Last administered on 01/17/19at 01:37; Admin Dose 250 MLS/HR; Start 01/17/19 at 01:00 Vancomycin HCl 1.25 gm/Sodium Chloride 250 ml @ 83.333 mls/ hr Q24H IVPB ; Start 01/17/19 at 21:00 Fentanyl 100 ml @ 2.5 mls/hr TITRATE IV Last administered on 01/17/19at 10:08; Admin Dose 2.5 MLS/HR; Start 01/17/19 at 10:00 Phenylephrine HCl 80 mg/Dextrose 250 ml @ 18.75 mls/ hr TITRATE IV ; Start 01/17/19 at 14:00 VTE Prophylaxis Risk score (from Nsg)>0 risk: 11 SCD applied (from Ns): Yes Lines/Catheters IV Catheter Type: Ricci in Place: No Assessment/Plan Hospital Course Subjective Patient on intra-aortic balloon pump, still intubated and sedated status post CABG Objective Physical exam General: Patient is laying in bed intubated and sedated Mentation: Patient is intubated and sedated Head: Normocephalic atraumatic Eyes: EOMI, pupils reactive to light Neck: Supple, nontender, midline Respiratory: Clear to auscultation bilaterally Cardiovascular: regular rate, no obvious murmurs Gastrointestinal: non-tender to palpation, bowel sounds heard. Neurological: Unable to properly assess Skin: No new skin lesions A/P Non-ST elevation GA, status post left heart cath and now multivessel intervention with open heart surgery done January 16, 2019, -Currently still with intra-aortic balloon pump -Continue pressors and other medications per cardiology and cardiothoracic surge on - ECHO from November 2018 shows an ejection fraction of roughly 35-40% with diastolic dysfunction. 2. Sepsis secondary to UTI - UA results noted. Will await urine cultures for sensitivities - Continue current antibiotic - may be catheter related given had one in place for 2 months -ID consulted Bacteremia -Gram-negative david, possible UTI source, infectious disease consulted, continue IV antibiotic 3. Urinary retention - will restart home medications and monitor output. Will avoid placing ricci if possible. Straight cath for now if experiencing discomfort 4. H/o Prostate cancer - follows with [facility] 5. HTN - continue home medications 6. CM - continue home medications 7. Disposition -More than 40 minutes of critical care time was spent on this encounter -Cardiothoracic and cardiology recommendations appreciated -Keep patient in ICU, still intubated and sedated PONCHO PEREYRA Jan 17, 2019 15:40
[2019-01-17] MEDS: POTASSIUM CHLORIDE 40 MEQ, CALCIUM CHLORIDE 10% 1 GM in DEXTROSE 5%-0.225% NACL 1,000 ML IV SCH (17:38)
[2019-01-17] MEDS: ATORVASTATIN 40 MG TAB PO SCH (21:10)
[2019-01-17] MEDS: VANCOMYCIN HCL 1.25 GM in SOD CHLORIDE 0.9% 250 ML IVPB SCH (21:40)
[2019-01-17] MEDS ORDERED: FUROSEMIDE 20 MG INJ IV ONE (22:30)
[2019-01-17] MEDS: ACETAMINOPHEN 325 MG TAB PO PRN (22:56)
[2019-01-18] VITALS (90 sets, daily range): BP systolic 86–140; BP diastolic 51–76; PULSE 80–111; RESP 17–43; TEMP 99.2–100.6
[2019-01-18] MEDS: ACCU-CHEK XX SCH ×17 (00:04→16:09)
[2019-01-18] MEDS: FENTAnyl (DRIP) 1000 mcg/100mL 100 ML IV SCH (03:03)
[2019-01-18] MEDS: INSULIN HUMAN REGULAR 100 UNIT in SOD CHLORIDE 0.9% 99 ML IV SCH (03:04)
[2019-01-18] MEDS: POTASSIUM CHLORIDE 40 MEQ, CALCIUM CHLORIDE 10% 1 GM in DEXTROSE 5%-0.225% NACL 1,000 ML IV SCH ×2 (05:20→11:56)
[2019-01-18] MEDS: ACETAMINOPHEN 325 MG TAB PO PRN (05:37)
--- NOTE | 2019-01-18 07:20 | PN ---
Date/Time of Note Date/Time of Note DATE: 01/18/19 TIME: 07:15 Assessment/Plan Lines/Catheters IV Catheter Type (from Nrs): Alden Lissa Ricci in Place (from Nrsg): Yes Assessment/Plan Assessment/Plan s/p cabg shock improving dm II acute blood loss anemia d/c juan d/c swan extubate? Subjective 24 Hr Interval Summary pod 2 iabp out yest on vent neosynephrine Feeding: NPO Pain Control: well controlled Exam/Review of Systems Vital Signs Vitals Vital Signs Date Temp Pulse Resp B/P (MAP) Pulse Ox O2 O2 Flow FiO2 Time Delivery Rate 01/18/19 84 20 94/61 (72) 98 06:45 01/18/19 [place] 06:30 l Ventilato r 01/18/19 100.0 06:22 01/18/19 30 05:49 01/16/19 5.0 00:15 Intake and Output 01/17/19 01/17/19 01/18/19 1414:59 22:59 06:59 IntakeIntake Total 1718.280 ml 802.5 ml 1178.906 ml OutputOutput Total 502 ml 217 ml 862 ml BalanceBalance 1216.280 ml 585.5 ml 316.906 ml Exam Constitutional: other (sedated) Head: normocephalic Eyes: nl conjunctiva ENMT: mucosa pink and moist, intubated Neck: supple Respiratory: normal air movement, other (fio2 30 % chest tubes 1000 cc total 300/24) Cardiovascular: regular rate and rhythm Gastrointestinal: soft Drains juan minimal out put left leg Genitourinary - Male: other (ricci) Musculoskeletal: other Extremities: other (warm) Neurological: other (sedated) Skin: nl turgor Results Result Diagram: 01/18/190 01/18/19439 SOPHIE SHETH MD Jan 18, 2019 07:20
[2019-01-18] MEDS: PROPOFOL 100 ML IV SCH (07:30)
[2019-01-18] MEDS: MEROPENEM 1 GM/50ML(PMX) 50 ML IVPB SCH ×2 (08:35→21:17)
[2019-01-18] MEDS: FAMOTIDINE 20 MG TAB PO SCH ×2 (08:35→21:00)
[2019-01-18] MEDS: ASPIRIN 325 MG TAB PO SCH (08:35)
[2019-01-18] MEDS: TAMSULOSIN (SR) 0.4 MG CAP PO SCH ×2 (08:51→21:00)
[2019-01-18] MEDS: BICALUTAMIDE 50 MG TAB PO SCH (08:51)
--- NOTE | 2019-01-18 10:06 | CONS ---
Assessment/Plan Assessment/Plan Hospital Course (Demo Recall) IMPRESSION: 1. Non-ST myocardial infarction with up trending cardiac enzymes.-overnight and then this am patient with uptrending cardiac enzymes. Now s/p LHC with mutivessel CAD and enmergent echo with decreased EF 30-35%. Now post-op day #2 s/p cabg x 4(ENRIQUEZ-LAD, SVG-PDA, SVG-OM, SVG-Ramus) 2. Chest pain secondary to #1.-ongoing 3. Abnormal electrocardiogram with anterolateral deep ST depressions. 4. Hypertension-currently borderline hypotension 5. Dyslipidemia. 6. Benign prostatic hypertrophy. 7. Prostate carcinoma. 8. History of hematuria recently. 9. CHF-systolic acute Recc: -ICU -wean rachael -Continue asa/statin -follow volume status and give dose of lasix -Wean vent as tolerated Consultation Date/Type/Reason Admit Date/Time Jan 15, 2019 at 01:24 Initial Consult Date 01/15/19 Type of Consult Cardiology Reason for Consultation acute [place] Requesting Provider: NEFTALI LYNN Date/Time of Note DATE: 01/18/19 TIME: 10:00 Exam/Review of Systems Vital Signs Vitals Vital Signs Date Temp Pulse Resp B/P (MAP) Pulse Ox O2 O2 Flow FiO2 Time Delivery Rate 01/18/19 82 19 98/58 (71) 100 Mechanical 09:30 Ventilator 01/18/19 99.4 09:00 01/18/19 30 08:00 01/16/19 5.0 00:15 Intake and Output 01/17/19 01/17/19 01/18/19 1515:00 23:00 07:00 IntakeIntake Total 1586.457 ml 884.833 ml 1016.573 ml OutputOutput Total 433 ml 218 ml 839 ml BalanceBalance 1153.457 ml 666.833 ml 177.573 ml Exam Exam Review of Systems: CONSTITUTIONAL: No fevers, chills. PULMONARY: intubated CARDIOVASCULAR: No chest pain/palpitations GASTROINTESTINAL: No nausea/vomiting. GENITOURINARY: No hematuria/dysuria. MUSCULOSKELETAL: No myagias/arthalgias. PSYCHIATRIC: No obvious deopression NEUROLOGIC: No weakness Constitutional: alert Psych: no complaints Head: normocephalic ENMT: mucosa pink and moist Neck: supple, jvd (9 cm water) Respiratory: clear to auscultation Cardiovascular: regular rate and rhythm Gastrointestinal: soft, non-tender Musculoskeletal: muscle tone (normal) Extremities: edema (trace/B) Neurological: other (No focal deficit) Labs Result Diagram: 01/18/1943901/18/19439 Results 24hrs Laboratory Tests Test 01/17/19 10:39 01/17/19 12:10 01/17/19 14:37 01/17/19 15:33 Bedside Glucose 82 112 120 White Blood Count 9.3 # Red Blood Count 2.97 #L Hemoglobin 8.8 #L Hematocrit 26.3 #L Mean Corpuscular 88.6 Volume Mean Corpuscular 29.6 Hemoglobin Mean Corpuscular 33.5 Hemoglobin Concen t Red Cell 15.4 H Distribution Width Platelet Count 138 L Mean Platelet 10.4 Volume Immature 0.200 Granulocytes % Neutrophils % Segmented 53 Neutrophils % (Manual) Band Neutrophils 30 H % (Manual) Lymphocytes % 11 L (Manual) Reactive 1 H Lymphocytes % (Manual) Monocytes % 5 (Manual) Eosinophils % Nucleated Red 0.0 Blood Cells % Immature 0.020 Granulocytes # Neutrophils # Neutrophils # 5.2 (Manual) Band Neutrophils 2.7 H # Lymphocytes 1.0 (Manual) Reactive 0.0 Lymphocytes # Monocytes # 0.4 (Manual) Eosinophils # Platelet Estimate NORMAL Polychromasia 2+ Poikilocytosis 1+ Anisocytosis 2+ Microcytosis 2+ Sodium Level 139 Potassium Level 4.3 Chloride Level 104 Carbon Dioxide 26 Level Anion Gap 9 Blood Urea 27 H Nitrogen Creatinine 1.02 Est Glomerular Filtrat Rate mL/min Glucose Level 98 Calcium Level 8.5 Test 01/17/19 18:11 01/17/19 20:06 01/17/19 22:08 01/18/19 00:05 Bedside Glucose 107 116 123 124 Test 01/18/19 02:00 01/18/19 04:01 01/18/19 04:39 01/18/19 04:40 Bedside Glucose 132 143 Prothrombin Time 15.6 H Prothrombin Time 1.2 Ratio INR International 1.23 Normalized Ratio Activated 39.2 H Partial Thrombopl ast Time White Blood Count 11.0 H Red Blood Count 2.88 L Hemoglobin 8.4 L Hematocrit 25.6 L Mean Corpuscular 88.9 Volume Mean Corpuscular 29.2 Hemoglobin Mean Corpuscular 32.8 Hemoglobin Concen t Red Cell 15.7 H Distribution Width Platelet Count 121 L Mean Platelet 11.1 H Volume Immature 0.500 H Granulocytes % Neutrophils % 75.2 Lymphocytes % 12.4 L Monocytes % 11.3 H Eosinophils % 0.3 Basophils % 0.3 Nucleated Red 0.0 Blood Cells % Immature 0.050 H Granulocytes # Neutrophils # 8.3 H Lymphocytes # 1.4 Monocytes # 1.2 H Eosinophils # 0.0 Basophils # 0.0 Nucleated Red 0.0 Blood Cells # Sodium Level 139 Potassium Level 4.4 Chloride Level 102 Carbon Dioxide 26 Level Anion Gap 11 Blood Urea 29 H Nitrogen Creatinine 1.13 Est Glomerular Filtrat Rate mL/min Glucose Level 130 Calcium Level 8.8 Magnesium Level 2.1 Total Bilirubin 1.0 Direct Bilirubin 0.00 Indirect 1.0 Bilirubin Aspartate Amino 72 H Transf (AST/SGOT) Alanine 24 Aminotransferase (ALT/SGPT) Alkaline 41 L Phosphatase Total Protein 6.0 L Albumin 3.4 Globulin 2.60 Albumin/Globulin 1.30 Ratio Test 01/18/19 05:16 01/18/19 06:01 01/18/19 08:13 Lab Scanned BLOOD TRANSFUSIO Report N Bedside Glucose 146 145 Medications Medications Current Medications IV Flush (NS 3 ml) 3 ml PER PROTOCOL IV ; Start 01/15/19 at 01:30 Nitroglycerin (Nitroglycerin (Sl Tab) 0.4 Mg) 1 tab Q5M PRN SL .CHEST PAIN Last administered on 01/16/19at 00:19; Admin Dose 1 TAB; Start 01/15/19 at 01:30 Morphine Sulfate (morphine) 1 mg Q4H PRN IV .PAIN 7-10 Last administered on 01/15/19at 23:30; Admin Dose 1 MG; Start 01/15/19 at 01:30 Docusate Sodium (Colace) 100 mg Q12H PRN PO .CONSTIPATION; Start 01/15/19 at 01:30 Bisacodyl (Dulcolax) 5 mg DAILY PRN PO .CONSTIPATION; Start 01/15/19 at 01:30 Lisinopril (Zestril) 10 mg BID PO Last administered on 01/15/19at 20:44; Admin Dose 10 MG; Start 01/15/19 at 09:00; Status Hold Bicalutamide (Casodex) 50 mg DAILY PO ; Start 01/16/19 at 09:00 Tamsulosin HCl (Flomax) 0.4 mg BID PO Last administered on 01/17/19 21:10; Admin Dose 0.4 MG; Start 01/15/19 at 21:00 Terazosin HCl (Hytrin) 5 mg HS PO Last administered on 01/15/19 20:43; Admin Dose 5 MG; Start 01/15/19 at 21:00; Status Hold Amlodipine Besylate (Norvasc) 10 mg DAILY PO ; Start 01/16/19 at 09:00; Status Hold Atorvastatin Calcium (Lipitor) 40 mg HS PO Last administered on 01/17/19 21:10; Admin Dose 40 MG; Start 01/15/19 at 21:00 Metoprolol Tartrate (Lopressor) 25 mg BID PO Last administered on 01/15/19 20:44; Admin Dose 25 MG; Start 01/15/19 at 21:00; Status Hold Heparin Sodium (Porcine) (Heparin (1000 Units/ml)) 4,000 unit PER PROTOCOL PRN IV aPTT<47; Start 01/15/19 at 22:00 Heparin Sodium (Porcine) 250 ml @ 8 mls/hr PER PROTOCOL IV Last administered on 01/15/19 22:10; Admin Dose 8 MLS/HR; Start 01/15/19 at 22:00 Nitroglycerin (Nitroglycerin 2% Oint) 0.5 inch Q8 TD Last administered on 01/16/19at 01:23; Admin Dose 0.5 INCH; Start 01/16/19 at 01:00; Status Hold Miscellaneous Information (* Miscellaneous Pharmacy Order) Hold all Metformin ... ONCE XX Last administered on 01/17/19 11:07; Admin Dose 1 EA; Start 01/16/19 at 11:00; Stop 01/18/19 at 10:59 Oxycodone/ Acetaminophen (Percocet (5/ 325)) 1 tab Q4H PRN PO PAIN; Start 01/16/19 at 11:00 Al Hydrox/Mg Hydrox/Simethicone (Mag-Al Plus) 30 ml Q4H PRN PO GASTROINTESTINAL UPSET; Start 01/16/19 at 11:00 Meropenem/Sodium Chloride 50 ml @ 100 mls/hr Q12 IVPB Last administered on 01/18/19at 08:35; Admin Dose 100 MLS/HR; Start 01/16/19 at 21:00 Vancomycin HCl (Vanco Iv Per Pharmacy) VANCOMYCIN PER PHARMACY PER PROTOCOL XX ; Start 01/16/19 at 11:30 Diagnostic Test (Pha) (Accu-Chek) 1 ea Q1H XX Last administered on 01/18/19at 08:32; Admin Dose 1 EA; Start 01/16/19 at 19:00 Insulin Human Regular 100 unit/ Sodium Chloride 100 ml @ 0 mls/hr PER PROTOCOL IV Last administered on 01/18/19at 03:04; Admin Dose 1.5 MLS/HR; Start 01/16/19 at 19:00 Miscellaneous Information (* Miscellaneous Pharmacy Order) Treatment of Hypoglycemia: 1.BG 51... Per protocol XX ; Start 01/16/19 at 17:30 Dextrose (D50w Syringe) 25 ml Q15M PRN IV .DECREASED GLUCOSE; Start 01/16/19 at 17:30 Dextrose (D50w Syringe) 50 ml Q15M PRN IV .DECREASED GLUCOSE; Start 01/16/19 at 17:30 Potassium Chloride 40 meq/ Calcium Chloride 1 gm/Dextrose/ Sodium Chloride 1,030 ml @ 60 mls/hr [id number] IV Last administered on 01/17/19at 17:38; Admin Dose 60 MLS/HR; Start 01/16/19 at 19:00 Hydromorphone HCl (Dilaudid) 0.2 mg Q15M PRN IV PAIN LEVEL 1-5; Start 01/16/19 at 17:30 Hydromorphone HCl (Dilaudid) 0.4 mg Q15M PRN IV PAIN LEVEL 6-10; Start 01/16/19 at 17:30 Oxycodone/ Acetaminophen (Percocet (5/ 325)) 1 tab Q3H PRN PO PAIN LEVEL 1-5; Start 01/16/19 at 17:30 Oxycodone/ Acetaminophen (Percocet (5/ 325)) 2 tab Q3H PRN PO PAIN LEVEL 6-10; Start 01/16/19 at 17:30 Ondansetron HCl (Zofran Inj) 4 mg Q6H PRN IV NAUSEA AND/OR VOMITING; Start 01/16/19 at 17:30 Famotidine (Pepcid) 20 mg BID PO Last administered on 01/18/19 08:35; Admin Dose 20 MG; Start 01/16/19 at 21:00 Aspirin (Aspirin) 325 mg DAILY PO Last administered on 01/18/19 08:35; Admin Dose 325 MG; Start 01/17/19 at 09:00 Acetaminophen (Tylenol Tab) 650 mg Q3H PRN PO ELEVATED TEMPERATURE Last administered on 01/18/19 05:37; Admin Dose 650 MG; Start 01/16/19 at 17:30 Potassium Chloride 50 ml @ 50 mls/hr SEE DIRECTION PRN IVPB K+ LEVEL Last administered on 01/17/19 09:51; Admin Dose 50 MLS/HR; Start 01/16/19 at 17:30 Magnesium Sulfate/ Dextrose 100 ml @ 100 mls/hr PRN PRN IVPB PENDING LAB VALUE; Start 01/16/19 at 17:30 Nitroglycerin/ Dextrose 250 ml @ 1.5 mls/hr PER PROTOCOL IV ; Start 01/16/19 at 18:00 Dopamine HCl/ Dextrose 250 ml @ 5.138 mls/ hr PER PROTOCOL IV Last administered on 01/17/19 01:31; Admin Dose 3.853 MLS/HR; Start 01/16/19 at 18:00 Propofol 100 ml @ 2.055 mls/ hr Q12H IV Last administered on 01/17/19 04:17; Admin Dose 2.055 MLS/HR; Start 01/16/19 at 19:30 Midazolam HCl 50 ml @ 1 mls/hr TITRATE IV Last administered on 01/17/19 23:15; Admin Dose 5 MLS/HR; Start 01/16/19 at 20:00 Albumin Human 250 ml @ 250 mls/hr PRN PRN IV CVP <10 Last administered on 01/17/19 22:36; Admin Dose 250 MLS/HR; Start 01/17/19 at 01:00 Vancomycin HCl 1.25 gm/Sodium Chloride 250 ml @ 83.333 mls/ hr Q24H IVPB Last administered on 01/17/19 21:40; Admin Dose 83.333 MLS/HR; Start 01/17/19 at 21:00 Fentanyl 100 ml @ 2.5 mls/hr TITRATE IV Last administered on 01/18/19at 03:03; Admin Dose 5 MLS/HR; Start 01/17/19 at 10:00 Phenylephrine HCl 80 mg/Dextrose 250 ml @ 18.75 mls/ hr TITRATE IV Last ad ministered on 01/17/19at 18:46; Admin Dose 7.5 MLS/HR; Start 01/17/19 at 14:00 NEFTALI LYNN Jan 18, 2019 10:06
[2019-01-18] MEDS ORDERED: FUROSEMIDE 20 MG INJ IV ONE (10:30)
--- NOTE | 2019-01-18 11:25 | CONS ---
Consult Date/Type/Reason Admit Date/Time Jan 15, 2019 at 01:24 Initial Consult Date 01/17/19 Type of Consult Pulmonary Requesting Provider: NEFTALI LYNN Date/Time of Note DATE: 01/18/19 TIME: 11:23 Subjective Patient continues vasopressor support remains on mechanical ventilation. More alert starting to open eyes of sedation. Adequate urine output. Chest x-ray shows moderate right pleural effusion. Objective Vital Signs Date Temp Pulse Resp B/P (MAP) Pulse Ox O2 O2 Flow FiO2 Time Delivery Rate 01/18/19 99.3 81 19 92/55 (67) 100 10:00 01/18/19 Mechanical 09:30 Ventilator 01/18/19 30 08:00 01/16/19 5.0 00:15 Intake and Output 01/17/19 01/17/19 01/18/19 1515:00 23:00 07:00 IntakeIntake Total 1586.457 ml 884.833 ml 1093.323 ml OutputOutput Total 433 ml 218 ml 839 ml BalanceBalance 1153.457 ml 666.833 ml 254.323 ml Exam GENERAL: Well-nourished well-developed gentleman orally intubated on mechanical ventilation VITAL SIGNS: per chart NECK: Supple. No JVD or lymphadenopathy. CARDIAC EXAM: S1, S2. No added sounds or murmurs. CHEST: Decreased air entry bilaterally ABDOMEN: Soft, nontender. No guarding or rebound. EXTREMITIES: No cyanosis, clubbing or edema. NEUROLOGIC: Generalized weakness. No focal deficits. Vent Setting Ventilator Support Mode: AC Fraction of Inspired Oxygen pe: 30 Positive End Expiratory Pressu: 5.0 Results/Medications Result Diagram: 01/18/19 0440 01/18/19 0440 Results 24 hrs Laboratory Tests Test 01/17/19 12:10 01/17/19 14:37 01/17/19 15:33 01/17/19 18:11 Bedside Glucose 112 120 107 White Blood 9.3 # Count Red Blood Count 2.97 #L Hemoglobin 8.8 #L Hematocrit 26.3 #L Mean Corpuscular 88.6 Volume Mean Corpuscular 29.6 Hemoglobin Mean Corpuscular 33.5 Hemoglobin Bailee nt Red Cell 15.4 H Distribution Width Platelet Count 138 L Mean Platelet 10.4 Volume Immature 0.200 Granulocytes % Neutrophils % Segmented 53 Neutrophils % (Manual) Band Neutrophils 30 H % (Manual) Lymphocytes % 11 L (Manual) Reactive 1 H Lymphocytes % (Manual) Monocytes % 5 (Manual) Eosinophils % Nucleated Red 0.0 Blood Cells % Immature 0.020 Granulocytes # Neutrophils # Neutrophils # 5.2 (Manual) Band Neutrophils 2.7 H # Lymphocytes 1.0 (Manual) Reactive 0.0 Lymphocytes # Monocytes # 0.4 (Manual) Eosinophils # Platelet NORMAL Estimate Polychromasia 2+ Poikilocytosis 1+ Anisocytosis 2+ Microcytosis 2+ Sodium Level 139 Potassium Level 4.3 Chloride Level 104 Carbon Dioxide 26 Level Anion Gap 9 Blood Urea 27 H Nitrogen Creatinine 1.02 Est Glomerular Filtrat Rate mL/min Glucose Level 98 Calcium Level 8.5 Test 01/17/19 20:06 01/17/19 22:08 01/18/19 00:05 01/18/19 02:00 Bedside Glucose 116 123 124 132 Test 01/18/19 04:01 01/18/19 04:39 01/18/19 04:40 01/18/19 05:16 Bedside Glucose 143 Prothrombin Time 15.6 H Prothrombin Time 1.2 Ratio INR 1.23 International Normalized Ratio Activated 39.2 H Partial Thrombop last Time White Blood 11.0 H Count Red Blood Count 2.88 L Hemoglobin 8.4 L Hematocrit 25.6 L Mean Corpuscular 88.9 Volume Mean Corpuscular 29.2 Hemoglobin Mean Corpuscular 32.8 Hemoglobin Bailee nt Red Cell 15.7 H Distribution Width Platelet Count 121 L Mean Platelet 11.1 H Volume Immature 0.500 H Granulocytes % Neutrophils % 75.2 Lymphocytes % 12.4 L Monocytes % 11.3 H Eosinophils % 0.3 Basophils % 0.3 Nucleated Red 0.0 Blood Cells % Immature 0.050 H Granulocytes # Neutrophils # 8.3 H Lymphocytes # 1.4 Monocytes # 1.2 H Eosinophils # 0.0 Basophils # 0.0 Nucleated Red 0.0 Blood Cells # Sodium Level 139 Potassium Level 4.4 Chloride Level 102 Carbon Dioxide 26 Level Anion Gap 11 Blood Urea 29 H Nitrogen Creatinine 1.13 Est Glomerular Filtrat Rate mL/min Glucose Level 130 Calcium Level 8.8 Magnesium Level 2.1 Total Bilirubin 1.0 Direct Bilirubin 0.00 Indirect 1.0 Bilirubin Aspartate Amino 72 H Transf (AST/SGOT ) Alanine 24 Aminotransferase (ALT/SGPT) Alkaline 41 L Phosphatase Total Protein 6.0 L Albumin 3.4 Globulin 2.60 Albumin/Globulin 1.30 Ratio Lab Scanned BLOOD TRANSFUSI Report ON Test 01/18/19 06:01 01/18/19 07:00 01/18/19 08:13 Bedside Glucose 146 145 Blood Gas Blood arterial Specimen Source Arterial Blood 01/18/2019 9:46: Date Drawn 39 AM Arterial Blood 7.466 H pH (Temp corrected) Arterial Blood 33.9 L pCO2 (Temp correct) Arterial Blood 90.0 pO2 (Temp corrected) Arterial Blood 23.9 HCO3 Arterial Blood 0.4 Base Excess Arterial Blood 96.4 Oxygen Saturatio n Daniel Test N/A Arterial Blood Right Brachial Gas Puncture Site Arterial 0.3 Blood Carboxyhem oglobin Arterial Blood 0.1 Methemoglobin Blood Gas A-a O2 84.1 H Differential Oxyhemoglobin 96.0 Percent Blood Gas 37.0 Temperature Blood Gas 14.0 Respiration Rate Blood Gas Actual 20 Respiration Rate Blood Gas VENT - AC Modality FiO2 30.0 Blood Gas Tidal 500.0 Volume Blood Gas Low 5.0 PEEP Setting Blood Gas TM Notified Whom Blood Gas 01/18/2019 10:05 Notified Time :53 AM Medications Current Medications IV Flush (NS 3 ml) 3 ml PER PROTOCOL IV ; Start 01/15/19 at 01:30 Nitroglycerin (Nitroglycerin (Sl Tab) 0.4 Mg) 1 tab Q5M PRN SL .CHEST PAIN Last administered on 01/16/19at 00:19; Admin Dose 1 TAB; Start 01/15/19 at 01:30 Morphine Sulfate (morphine) 1 mg Q4H PRN IV .PAIN 7-10 Last administered on 01/15/19at 23:30; Admin Dose 1 MG; Start 01/15/19 at 01:30 Docusate Sodium (Colace) 100 mg Q12H PRN PO .CONSTIPATION; Start 01/15/19 at 01:30 Bisacodyl (Dulcolax) 5 mg DAILY PRN PO .CONSTIPATION; Start 01/15/19 at 01:30 Lisinopril (Zestril) 10 mg BID PO Last administered on 01/15/19at 20:44; Admin Dose 10 MG; Start 01/15/19 at 09:00; Status Hold Bicalutamide (Casodex) 50 mg DAILY PO ; Start 01/16/19 at 09:00 Tamsulosin HCl (Flomax) 0.4 mg BID PO Last administered on 01/17/19at 21:10; Admin Dose 0.4 MG; Start 01/15/19 at 21:00 Terazosin HCl (Hytrin) 5 mg HS PO Last administered on 01/15/19at 20:43; Admin Dose 5 MG; Start 01/15/19 at 21:00; Status Hold Amlodipine Besylate (Norvasc) 10 mg DAILY PO ; Start 01/16/19 at 09:00; Status Hold Atorvastatin Calcium (Lipitor) 40 mg HS PO Last administered on 01/17/19at 21:10; Admin Dose 40 MG; Start 01/15/19 at 21:00 Metoprolol Tartrate (Lopressor) 25 mg BID PO Last administered on 01/15/19at 20:44; Admin Dose 25 MG; Start 01/15/19 at 21:00; Status Hold Heparin Sodium (Porcine) (Heparin (1000 Units/ml)) 4,000 unit PER PROTOCOL PRN IV aPTT<47; Start 01/15/19 at 22:00 Heparin Sodium (Porcine) 250 ml @ 8 mls/hr PER PROTOCOL IV Last administered on 01/15/19at 22:10; Admin Dose 8 MLS/HR; Start 01/15/19 at 22:00 Nitroglycerin (Nitroglycerin 2% Oint) 0.5 inch Q8 TD Last administered on 01/16/19at 01:23; Admin Dose 0.5 INCH; Start 01/16/19 at 01:00; Status Hold Oxycodone/ Acetaminophen (Percocet (5/ 325)) 1 tab Q4H PRN PO PAIN; Start 01/16/19 at 11:00 Al Hydrox/Mg Hydrox/Simethicone (Mag-Al Plus) 30 ml Q4H PRN PO GASTROINTESTINAL UPSET; Start 01/16/19 at 11:00 Meropenem/Sodium Chloride 50 ml @ 100 mls/hr Q12 IVPB Last administered on 01/18/19at 08:35; Admin Dose 100 MLS/HR; Start 01/16/19 at 21:00 Vancomycin HCl (Vanco Iv Per Pharmacy) VANCOMYCIN PER PHARMACY PER PROTOCOL XX ; Start 01/16/19 at 11:30 Diagnostic Test (Pha) (Accu-Chek) 1 ea Q1H XX Last administered on 01/18/19at 08:32; Admin Dose 1 EA; Start 01/16/19 at 19:00 Insulin Human Regular 100 unit/ Sodium Chloride 100 ml @ 0 mls/hr PER PROTOCOL IV Last administered on 01/18/19at 03:04; Admin Dose 1.5 MLS/HR; Start 01/16/19 at 19:00 Miscellaneous Information (* Miscellaneous Pharmacy Order) Treatment of Hypoglycemia: 1.BG 51... Per protocol XX ; Start 01/16/19 at 17:30 Dextrose (D50w Syringe) 25 ml Q15M PRN IV .DECREASED GLUCOSE; Start 01/16/19 at 17:30 Dextrose (D50w Syringe) 50 ml Q15M PRN IV .DECREASED GLUCOSE; Start 01/16/19 at 17:30 Potassium Chloride 40 meq/ Calcium Chloride 1 gm/Dextrose/ Sodium Chloride 1,030 ml @ 60 mls/hr [id number] IV Last administered on 01/17/19at 17:38; Admin Dose 60 MLS/HR; Start 01/16/19 at 19:00 Hydromorphone HCl (Dilaudid) 0.2 mg Q15M PRN IV PAIN LEVEL 1-5; Start 01/16/19 at 17:30 Hydromorphone HCl (Dilaudid) 0.4 mg Q15M PRN IV PAIN LEVEL 6-10; Start 01/16/19 at 17:30 Oxycodone/ Acetaminophen (Percocet (5/ 325)) 1 tab Q3H PRN PO PAIN LEVEL 1-5; Start 01/16/19 at 17:30 Oxycodone/ Acetaminophen (Percocet (5/ 325)) 2 tab Q3H PRN PO PAIN LEVEL 6-10; Start 01/16/19 at 17:30 Ondansetron HCl (Zofran Inj) 4 mg Q6H PRN IV NAUSEA AND/OR VOMITING; Start 01/16/19 at 17:30 Famotidine (Pepcid) 20 mg BID PO Last administered on 01/18/19at 08:35; Admin Dose 20 MG; Start 01/16/19 at 21:00 Aspirin (Aspirin) 325 mg DAILY PO Last administered on 01/18/19at 08:35; Admin Dose 325 MG; Start 01/17/19 at 09:00 Acetaminophen (Tylenol Tab) 650 mg Q3H PRN PO ELEVATED TEMPERATURE Last administered on 01/18/19 05:37; Admin Dose 650 MG; Start 01/16/19 at 17:30 Potassium Chloride 50 ml @ 50 mls/hr SEE DIRECTION PRN IVPB K+ LEVEL Last administered on 01/17/19 09:51; Admin Dose 50 MLS/HR; Start 01/16/19 at 17:30 Magnesium Sulfate/ Dextrose 100 ml @ 100 mls/hr PRN PRN IVPB PENDING LAB VALUE; Start 01/16/19 at 17:30 Nitroglycerin/ Dextrose 250 ml @ 1.5 mls/hr PER PROTOCOL IV ; Start 01/16/19 at 18:00 Dopamine HCl/ Dextrose 250 ml @ 5.138 mls/ hr PER PROTOCOL IV Last administered on 01/17/19 01:31; Admin Dose 3.853 MLS/HR; Start 01/16/19 at 18:00 Propofol 100 ml @ 2.055 mls/ hr Q12H IV Last administered on 01/17/19 04:17; Admin Dose 2.055 MLS/HR; Start 01/16/19 at 19:30 Midazolam HCl 50 ml @ 1 mls/hr TITRATE IV Last administered on 01/17/19 23:15; Admin Dose 5 MLS/HR; Start 01/16/19 at 20:00 Albumin Human 250 ml @ 250 mls/hr PRN PRN IV CVP <10 Last administered on 01/17/19 22:36; Admin Dose 250 MLS/HR; Start 01/17/19 at 01:00 Vancomycin HCl 1.25 gm/Sodium Chloride 250 ml @ 83.333 mls/ hr Q24H IVPB Last administered on 01/17/19 21:40; Admin Dose 83.333 MLS/HR; Start 01/17/19 at 21:00 Fentanyl 100 ml @ 2.5 mls/hr TITRATE IV Last administered on 01/18/19 03:03; Admin Dose 5 MLS/HR; Start 01/17/19 at 10:00 Phenylephrine HCl 80 mg/Dextrose 250 ml @ 18.75 mls/ hr TITRATE IV Last administered on 01/17/19 18:46; Admin Dose 7.5 MLS/HR; Start 01/17/19 at 14:00 Assessment/Plan Hospital Course (Demo Recall) Assessment 1. Coronary artery disease status post acute coronary artery bypass graft surgery postop day 2 2. Shock likely combination of cardiogenic and septic. 3. Dysphagia secondary to above 4. Acute hypoxemic respiratory failure postop moderate right pleural effusion and evidence of congestive cardiac failure. 5. History of prostate cancer Plan 1. Decrease sedation and CPAP trial 2. Thoracentesis right pleural effusion with pleural fluid studies 3. Post extubation incentive spirometry and aspiration precautions 4. Diuresis per cardiology 5. Titrate vasopressors keep map greater than 65 critical care time 40 minutes. LA GEE MD, [facility] Jan 18, 2019 11:25
--- NOTE | 2019-01-18 13:31 | PN ---
Date/Time of Note Date/Time of Note DATE: 01/18/19 TIME: 13:29 Objective Vitals Vital Signs Date Temp Pulse Resp B/P (MAP) Pulse Ox O2 O2 Flow FiO2 Time Delivery Rate 01/18/19 88 23 121/69 100 12:15 (86) 01/18/19 99.3 12:00 01/18/19 Mechanical 12:00 Ventilator 01/18/19 30 11:38 01/16/19 5.0 00:15 Intake and Output 01/17/19 01/17/19 01/18/19 1515:00 23:00 07:00 IntakeIntake Total 1586.457 ml 884.833 ml 1093.323 ml OutputOutput Total 433 ml 218 ml 877 ml BalanceBalance 1153.457 ml 666.833 ml 216.323 ml Results Result Diagram: 01/18/1943901/18/19439 Medications Medications Current Medications IV Flush (NS 3 ml) 3 ml PER PROTOCOL IV ; Start 01/15/19 at 01:30 Nitroglycerin (Nitroglycerin (Sl Tab) 0.4 Mg) 1 tab Q5M PRN SL .CHEST PAIN Last administered on 01/16/19at 00:19; Admin Dose 1 TAB; Start 01/15/19 at 01:30 Morphine Sulfate (morphine) 1 mg Q4H PRN IV .PAIN 7-10 Last administered on 01/15/19at 23:30; Admin Dose 1 MG; Start 01/15/19 at 01:30 Docusate Sodium (Colace) 100 mg Q12H PRN PO .CONSTIPATION; Start 01/15/19 at 01:30 Bisacodyl (Dulcolax) 5 mg DAILY PRN PO .CONSTIPATION; Start 01/15/19 at 01:30 Lisinopril (Zestril) 10 mg BID PO Last administered on 01/15/19at 20:44; Admin Dose 10 MG; Start 01/15/19 at 09:00; Status Hold Bicalutamide (Casodex) 50 mg DAILY PO ; Start 01/16/19 at 09:00 Tamsulosin HCl (Flomax) 0.4 mg BID PO Last administered on 01/17/19at 21:10; Admin Dose 0.4 MG; Start 01/15/19 at 21:00 Terazosin HCl (Hytrin) 5 mg HS PO Last administered on 01/15/19at 20:43; Admin Dose 5 MG; Start 01/15/19 at 21:00; Status Hold Amlodipine Besylate (Norvasc) 10 mg DAILY PO ; Start 01/16/19 at 09:00; Status Hold Atorvastatin Calcium (Lipitor) 40 mg HS PO Last administered on 01/17/19at 21:10; Admin Dose 40 MG; Start 01/15/19 at 21:00 Metoprolol Tartrate (Lopressor) 25 mg BID PO Last administered on 01/15/19at 20:44; Admin Dose 25 MG; Start 01/15/19 at 21:00; Status Hold Heparin Sodium (Porcine) (Heparin (1000 Units/ml)) 4,000 unit PER PROTOCOL PRN IV aPTT<47; Start 01/15/19 at 22:00 Heparin Sodium (Porcine) 250 ml @ 8 mls/hr PER PROTOCOL IV Last administered on 01/15/19at 22:10; Admin Dose 8 MLS/HR; Start 01/15/19 at 22:00 Nitroglycerin (Nitroglycerin 2% Oint) 0.5 inch Q8 TD Last administered on 01/16/19at 01:23; Admin Dose 0.5 INCH; Start 01/16/19 at 01:00; Status Hold Oxycodone/ Acetaminophen (Percocet (5/ 325)) 1 tab Q4H PRN PO PAIN; Start 01/16/19 at 11:00 Al Hydrox/Mg Hydrox/Simethicone (Mag-Al Plus) 30 ml Q4H PRN PO GASTROINTESTINAL UPSET; Start 01/16/19 at 11:00 Meropenem/Sodium Chloride 50 ml @ 100 mls/hr Q12 IVPB Last administered on at 08:35; Admin Dose 100 MLS/HR; Start 01/16/19 at 21:00 Vancomycin HCl (Vanco Iv Per Pharmacy) VANCOMYCIN PER PHARMACY PER PROTOCOL XX ; Start 01/16/19 at 11:30 Diagnostic Test (Pha) (Accu-Chek) 1 ea Q1H XX Last administered on 01/18/19at 12:01; Admin Dose 1 EA; Start 01/16/19 at 19:00 Insulin Human Regular 100 unit/ Sodium Chloride 100 ml @ 0 mls/hr PER PROTOCOL IV Last administered on 01/18/19at 03:04; Admin Dose 1.5 MLS/HR; Start 01/16/19 at 19:00 Miscellaneous Information (* Miscellaneous Pharmacy Order) Treatment of Hypoglycemia: 1.BG 51... Per protocol XX ; Start 01/16/19 at 17:30 Dextrose (D50w Syringe) 25 ml Q15M PRN IV .DECREASED GLUCOSE; Start 01/16/19 at 17:30 Dextrose (D50w Syringe) 50 ml Q15M PRN IV .DECREASED GLUCOSE; Start 01/16/19 at 17:30 Potassium Chloride 40 meq/ Calcium Chloride 1 gm/Dextrose/ Sodium Chloride 1,030 ml @ 60 mls/hr [id number] IV Last administered on 01/18/19at 11:56; Admin Dose 60 MLS/HR; Start 01/16/19 at 19:00 Hydromorphone HCl (Dilaudid) 0.2 mg Q15M PRN IV PAIN LEVEL 1-5; Start 01/16/19 at 17:30 Hydromorphone HCl (Dilaudid) 0.4 mg Q15M PRN IV PAIN LEVEL 6-10 Last administered on 01/18/19at 11:58; Admin Dose 0.4 MG; Start 01/16/19 at 17:30 Oxycodone/ Acetaminophen (Percocet (5/ 325)) 1 tab Q3H PRN PO PAIN LEVEL 1-5; Start 01/16/19 at 17:30 Oxycodone/ Acetaminophen (Percocet (5/ 325)) 2 tab Q3H PRN PO PAIN LEVEL 6-10; Start 01/16/19 at 17:30 Ondansetron HCl (Zofran Inj) 4 mg Q6H PRN IV NAUSEA AND/OR VOMITING; Start 01/16/19 at 17:30 Famotidine (Pepcid) 20 mg BID PO Last administered on 01/18/19at 08:35; Admin Dose 20 MG; Start 01/16/19 at 21:00 Aspirin (Aspirin) 325 mg DAILY PO Last administered on 01/18/19at 08:35; Admin Dose 325 MG; Start 01/17/19 at 09:00 Acetaminophen (Tylenol Tab) 650 mg Q3H PRN PO ELEVATED TEMPERATURE Last administered on 01/18/19at 05:37; Admin Dose 650 MG; Start 01/16/19 at 17:30 Potassium Chloride 50 ml @ 50 mls/hr SEE DIRECTION PRN IVPB K+ LEVEL Last administered on 01/17/19 09:51; Admin Dose 50 MLS/HR; Start 01/16/19 at 17:30 Magnesium Sulfate/ Dextrose 100 ml @ 100 mls/hr PRN PRN IVPB PENDING LAB VALUE; Start 01/16/19 at 17:30 Nitroglycerin/ Dextrose 250 ml @ 1.5 mls/hr PER PROTOCOL IV ; Start 01/16/19 at 18:00 Dopamine HCl/ Dextrose 250 ml @ 5.138 mls/ hr PER PROTOCOL IV Last administered on 01/17/19 01:31; Admin Dose 3.853 MLS/HR; Start 01/16/19 at 18:00 Propofol 100 ml @ 2.055 mls/ hr Q12H IV Last administered on 01/17/19 04:17; Admin Dose 2.055 MLS/HR; Start 01/16/19 at 19:30 Midazolam HCl 50 ml @ 1 mls/hr TITRATE IV Last administered on 01/17/19 23:15; Admin Dose 5 MLS/HR; Start 01/16/19 at 20:00 Albumin Human 250 ml @ 250 mls/hr PRN PRN IV CVP <10 Last administered on 01/17/19 22:36; Admin Dose 250 MLS/HR; Start 01/17/19 at 01:00 Vancomycin HCl 1.25 gm/Sodium Chloride 250 ml @ 83.333 mls/ hr Q24H IVPB Last administered on 01/17/19 21:40; Admin Dose 83.333 MLS/HR; Start 01/17/19 at 21:00 Fentanyl 100 ml @ 2.5 mls/hr TITRATE IV Last administered on 01/18/19 03:03; Admin Dose 5 MLS/HR; Start 01/17/19 at 10:00 Phenylephrine HCl 80 mg/Dextrose 250 ml @ 18.75 mls/ hr TITRATE IV Last administered on 01/17/19 18:46; Admin Dose 7.5 MLS/HR; Start 01/17/19 at 14:00 VTE Prophylaxis Risk score (from Nsg)>0 risk: 24 SCD applied (from Ns): Yes Lines/Catheters IV Catheter Type: Ricci in Place: Yes Cont'd ricci catheter reason: terminal illness/intractable pain Assessment/Plan Hospital Course Subjective Patient still intubated and sedated Objective Physical exam General: Patient is laying in bed intubated and sedated Mentation: Patient is intubated and sedated Head: Normocephalic atraumatic Eyes: EOMI, pupils reactive to light Neck: Supple, nontender, midline Respiratory: Clear to auscultation bilaterally Cardiovascular: regular rate, no obvious murmurs Gastrointestinal: non-tender to palpation, bowel sounds heard. Neurological: Unable to properly assess Skin: No new skin lesions A/P Non-ST elevation OK, status post left heart cath and now multivessel intervention with open heart surgery done January 16, 2019, -Continue pressors and other medications per cardiology and cardiothoracic surgeon, titrate off Skinny-Synephrine as tolerated - ECHO from November 2018 shows an ejection fraction of roughly 35-40% with diastolic dysfunction. Sepsis secondary to UTI - UA results noted. Will await urine cultures for sensitivities - Continue current antibiotic - may be catheter related given had one in place for 2 months -ID consulted Bacteremia -Gram-negative david, possible UTI source, infectious disease consulted, continue IV antibiotic Urinary retention - will restart home medications and monitor output. -Some decrease per nursing staff and urine output however this may be due secondary to everything else that is going on with above CABG and hypotension versus actual retention, however will monitor closely, unlikely retention given Ricci catheter H/o Prostate cancer - follows with Cindy Bender HTN - continue home medications CM - continue home medications 7. Disposition -More than 40 minutes of critical care time was spent on this encounter -Cardiothoracic and cardiology recommendations appreciated -Keep patient in ICU, still intubated and sedated PONCHO PEREYRA Jan 18, 2019 13:30
--- NOTE | 2019-01-18 14:26 | CONS ---
Assessment/Plan Assessment/Plan Hospital Course (Demo Recall) Patient is on CPAP, looks comfortable. T-max, he is still on Skinny-Synephrine drip and insulin drips 100.9 this morning T-current 99.2 WBC 11 platelets 121 neutrophils 75.2 BUN 29 creatinine 1.13 Chest x-ray this morning revealed interstitial edema Indwelling: Endotracheal tube, orogastric tube, right IJ Durbin-Lissa, chest tubes, Galvez, pacing wires Antimicrobials: Vancomycin, meropenem Microbiology: Blood culture on admission grew Citrobacter, urine culture grew Corynebacterium species Physical examination: Well-developed well-nourished elderly man who is intubated sedated in no distress. Head atraumatic normocephalic sclera nonicteric. Buccal mucosa dry. Neck is supple chest rise symmetrical breath sounds diminished at bases. Heart: S1-S2. Abdomen distended, hypoactive bowel tones. Extremities mottled and cyanotic. Assessment: 1. Septic shock, possibly also cardiogenic 2. Gram-negative david bacteremia likely secondary to UTI 3. Pulmonary edema with superimposed pneumonia, possible aspiration 3. Acute [place] status post emergency CABG 01/16/19 4. History of prostate cancer 5. History of hypertension 6. Acute anemia Plan: Clinically improving, continue present care, antibiotics, follow repeat blood cultures, follow sputum culture, weaning trials per pulmonary Consultation Date/Type/Reason Admit Date/Time Jan 15, 2019 at 01:24 Initial Consult Date 01/17/19 Type of Consult id Requesting Provider: NEFTALI LYNN Date/Time of Note DATE: 01/18/19 TIME: 14:25 Exam/Review of Systems Exam Vitals Vital Signs Date Temp Pulse Resp B/P (MAP) Pulse Ox O2 O2 Flow FiO2 Time Delivery Rate 01/18/19 99.2 87 23 113/64 100 14:00 (80) 01/18/19 Mechanical 12:00 Ventilator 01/18/19 30 11:38 01/16/19 5.0 00:15 Intake and Output 01/17/19 01/17/19 01/18/19 1515:00 23:00 07:00 IntakeIntake Total 1586.457 ml 884.833 ml 1093.323 ml OutputOutput Total 433 ml 218 ml 877 ml BalanceBalance 1153.457 ml 666.833 ml 216.323 ml Results Result Diagram: 01/18/190 01/18/19 0440 Results 24hrs Laboratory Tests Test 01/17/19 14:37 01/17/19 15:33 01/17/19 18:11 01/17/19 20:06 Bedside Glucose 120 107 116 White Blood 9.3 # Count Red Blood Count 2.97 #L Hemoglobin 8.8 #L Hematocrit 26.3 #L Mean 88.6 Corpuscular Volume Mean 29.6 Corpuscular Hemoglobin Mean 33.5 Corpuscular Hemoglobin Conc ent Red Cell 15.4 H Distribution Width Platelet Count 138 L Mean Platelet 10.4 Volume Immature 0.200 Granulocytes % Neutrophils % Segmented 53 Neutrophils % (Manual) Band 30 H Neutrophils % (Manual) Lymphocytes % 11 L (Manual) Reactive 1 H Lymphocytes % (Manual) Monocytes % 5 (Manual) Eosinophils % Nucleated Red 0.0 Blood Cells % Immature 0.020 Granulocytes # Neutrophils # Neutrophils # 5.2 (Manual) Band 2.7 H Neutrophils # Lymphocytes 1.0 (Manual) Reactive 0.0 Lymphocytes # Monocytes # 0.4 (Manual) Eosinophils # Platelet NORMAL Estimate Polychromasia 2+ Poikilocytosis 1+ Anisocytosis 2+ Microcytosis 2+ Sodium Level 139 Potassium Level 4.3 Chloride Level 104 Carbon Dioxide 26 Level Anion Gap 9 Blood Urea 27 H Nitrogen Creatinine 1.02 Est Glomerular Filtrat Rate mL/min Glucose Level 98 Calcium Level 8.5 Test 01/17/19 22:08 01/18/19 00:05 01/18/19 02:00 01/18/19 04:01 Bedside Glucose 123 124 132 143 Test 01/18/19 04:39 01/18/19 04:40 01/18/19 05:16 01/18/19 06:01 Prothrombin 15.6 H Time Prothrombin 1.2 Time Ratio INR 1.23 International Normalized Rati o Activated 39.2 H Partial Thrombo plast Time White Blood 11.0 H Count Red Blood Count 2.88 L Hemoglobin 8.4 L Hematocrit 25.6 L Mean 88.9 Corpuscular Volume Mean 29.2 Corpuscular Hemoglobin Mean 32.8 Corpuscular Hemoglobin Conc ent Red Cell 15.7 H Distribution Width Platelet Count 121 L Mean Platelet 11.1 H Volume Immature 0.500 H Granulocytes % Neutrophils % 75.2 Lymphocytes % 12.4 L Monocytes % 11.3 H Eosinophils % 0.3 Basophils % 0.3 Nucleated Red 0.0 Blood Cells % Immature 0.050 H Granulocytes # Neutrophils # 8.3 H Lymphocytes # 1.4 Monocytes # 1.2 H Eosinophils # 0.0 Basophils # 0.0 Nucleated Red 0.0 Blood Cells # Sodium Level 139 Potassium Level 4.4 Chloride Level 102 Carbon Dioxide 26 Level Anion Gap 11 Blood Urea 29 H Nitrogen Creatinine 1.13 Est Glomerular Filtrat Rate mL/min Glucose Level 130 Calcium Level 8.8 Magnesium Level 2.1 Total Bilirubin 1.0 Direct 0.00 Bilirubin Indirect 1.0 Bilirubin Aspartate Amino 72 H Transf (AST/SGO T) Alanine 24 Aminotransferas e (ALT/SGPT) Alkaline 41 L Phosphatase Total Protein 6.0 L Albumin 3.4 Globulin 2.60 Albumin/Globuli 1.30 n Ratio Lab Scanned BLOOD TRANSFUSI Report ON Bedside Glucose 146 Test 01/18/19 07:00 01/18/19 08:13 01/18/19 11:59 01/18/19 13:43 Blood Gas Blood arterial Blood Specimen arterial Source Arterial Blood 01/18/2019 9:46: 01/18/2019 1:36 Date Drawn 39 AM :51 PM Arterial Blood 7.466 H 7.468 H pH (Temp corrected ) Arterial Blood 33.9 L 34.6 L pCO2 (Temp correct) Arterial Blood 90.0 91.0 H pO2 (Temp corrected ) Arterial Blood 23.9 24.5 HCO3 Arterial Blood 0.4 1.0 Base Excess Arterial Blood 96.4 96.5 Oxygen Saturati on Daniel Test N/A N/A Arterial Blood Right Brachial Right Gas Brachial Puncture Site Arterial 0.3 0.3 Blood Carboxyhe moglobin Arterial Blood 0.1 0.3 Methemoglobin Blood Gas A-a 84.1 H 82.2 H O2 Differential Oxyhemoglobin 96.0 95.9 Percent Blood Gas 37.0 37.0 Temperature Blood Gas 14.0 Respiration Rate Blood Gas 20 22 Actual Respiration Rat e Blood Gas VENT - AC VENT - CPAP Modality FiO2 30.0 30.0 Blood Gas Tidal 500.0 Volume Blood Gas Low 5.0 5.0 PEEP Setting Blood Gas TM TM Notified Whom Blood Gas 01/18/2019 10:05 01/18/2019 1:47 Notified Time :53 AM :47 PM Bedside Glucose 145 138 Blood Gas 10 Pressure Support Medications Medication Current Medications IV Flush (NS 3 ml) 3 ml PER PROTOCOL IV ; Start 01/15/19 at 01:30 Nitroglycerin (Nitroglycerin (Sl Tab) 0.4 Mg) 1 tab Q5M PRN SL .CHEST PAIN Last administered on 01/16/19 00:19; Admin Dose 1 TAB; Start 01/15/19 at 01:30 Morphine Sulfate (morphine) 1 mg Q4H PRN IV .PAIN 7-10 Last administered on 01/15/19at 23:30; Admin Dose 1 MG; Start 01/15/19 at 01:30 Docusate Sodium (Colace) 100 mg Q12H PRN PO .CONSTIPATION; Start 01/15/19 at 01:30 Bisacodyl (Dulcolax) 5 mg DAILY PRN PO .CONSTIPATION; Start 01/15/19 at 01:30 Lisinopril (Zestril) 10 mg BID PO Last administered on 01/15/19at 20:44; Admin Dose 10 MG; Start 01/15/19 at 09:00; Status Hold Bicalutamide (Casodex) 50 mg DAILY PO ; Start 01/16/19 at 09:00 Tamsulosin HCl (Flomax) 0.4 mg BID PO Last administered on 01/17/19 21:10; Admin Dose 0.4 MG; Start 01/15/19 at 21:00 Terazosin HCl (Hytrin) 5 mg HS PO Last administered on 01/15/19at 20:43; Admin Dose 5 MG; Start 01/15/19 at 21:00; Status Hold Amlodipine Besylate (Norvasc) 10 mg DAILY PO ; Start 01/16/19 at 09:00; Status Hold Atorvastatin Calcium (Lipitor) 40 mg HS PO Last administered on 01/17/19 21:10; Admin Dose 40 MG; Start 01/15/19 at 21:00 Metoprolol Tartrate (Lopressor) 25 mg BID PO Last administered on 01/15/19 20:44; Admin Dose 25 MG; Start 01/15/19 at 21:00; Status Hold Heparin Sodium (Porcine) (Heparin (1000 Units/ml)) 4,000 unit PER PROTOCOL PRN IV aPTT<47; Start 01/15/19 at 22:00 Heparin Sodium (Porcine) 250 ml @ 8 mls/hr PER PROTOCOL IV Last administered on 01/15/19at 22:10; Admin Dose 8 MLS/HR; Start 01/15/19 at 22:00 Nitroglycerin (Nitroglycerin 2% Oint) 0.5 inch Q8 TD Last administered on 01/16/19at 01:23; Admin Dose 0.5 INCH; Start 01/16/19 at 01:00; Status Hold Oxycodone/ Acetaminophen (Percocet (5/ 325)) 1 tab Q4H PRN PO PAIN; Start 01/16/19 at 11:00 Al Hydrox/Mg Hydrox/Simethicone (Mag-Al Plus) 30 ml Q4H PRN PO GASTROINTESTINAL UPSET; Start 01/16/19 at 11:00 Meropenem/Sodium Chloride 50 ml @ 100 mls/hr Q12 IVPB Last administered on 01/18/19at 08:35; Admin Dose 100 MLS/HR; Start 01/16/19 at 21:00 Vancomycin HCl (Vanco Iv Per Pharmacy) VANCOMYCIN PER PHARMACY PER PROTOCOL XX ; Start 01/16/19 at 11:30 Diagnostic Test (Pha) (Accu-Chek) 1 ea Q1H XX Last administered on 01/18/19at 12:01; Admin Dose 1 EA; Start 01/16/19 at 19:00 Insulin Human Regular 100 unit/ Sodium Chloride 100 ml @ 0 mls/hr PER PROTOCOL IV Last administered on 01/18/19at 03:04; Admin Dose 1.5 MLS/HR; Start 01/16/19 at 19:00 Miscellaneous Information (* Miscellaneous Pharmacy Order) Treatment of Hypoglycemia: 1.BG 51... Per protocol XX ; Start 01/16/19 at 17:30 Dextrose (D50w Syringe) 25 ml Q15M PRN IV .DECREASED GLUCOSE; Start 01/16/19 at 17:30 Dextrose (D50w Syringe) 50 ml Q15M PRN IV .DECREASED GLUCOSE; Start 01/16/19 at 17:30 Potassium Chloride 40 meq/ Calcium Chloride 1 gm/Dextrose/ Sodium Chloride 1,030 ml @ 60 mls/hr [id number] IV Last administered on 01/18/19at 11:56; Admin Dose 60 MLS/HR; Start 01/16/19 at 19:00 Hydromorphone HCl (Dilaudid) 0.2 mg Q15M PRN IV PAIN LEVEL 1-5; Start 01/16/19 at 17:30 Hydromorphone HCl (Dilaudid) 0.4 mg Q15M PRN IV PAIN LEVEL 6-10 Last administered on 01/18/19at 11:58; Admin Dose 0.4 MG; Start 01/16/19 at 17:30 Oxycodone/ Acetaminophen (Percocet (5/ 325)) 1 tab Q3H PRN PO PAIN LEVEL 1-5; Start 01/16/19 at 17:30 Oxycodone/ Acetaminophen (Percocet (5/ 325)) 2 tab Q3H PRN PO PAIN LEVEL 6-10; Start 01/16/19 at 17:30 Ondansetron HCl (Zofran Inj) 4 mg Q6H PRN IV NAUSEA AND/OR VOMITING; Start 01/16/19 at 17:30 Famotidine (Pepcid) 20 mg BID PO Last administered on 01/18/19at 08:35; Admin Dose 20 MG; Start 01/16/19 at 21:00 Aspirin (Aspirin) 325 mg DAILY PO Last administered on 01/18/19at 08:35; Admin Dose 325 MG; Start 01/17/19 at 09:00 Acetaminophen (Tylenol Tab) 650 mg Q3H PRN PO ELEVATED TEMPERATURE Last administered on 01/18/19at 05:37; Admin Dose 650 MG; Start 01/16/19 at 17:30 Potassium Chloride 50 ml @ 50 mls/hr SEE DIRECTION PRN IVPB K+ LEVEL Last administered on 01/17/19at 09:51; Admin Dose 50 MLS/HR; Start 01/16/19 at 17:30 Magnesium Sulfate/ Dextrose 100 ml @ 100 mls/hr PRN PRN IVPB PENDING LAB VALUE; Start 01/16/19 at 17:30 Nitroglycerin/ Dextrose 250 ml @ 1.5 mls/hr PER PROTOCOL IV ; Start 01/16/19 at 18:00 Dopamine HCl/ Dextrose 250 ml @ 5.138 mls/ hr PER PROTOCOL IV Last administered on 01/17/19at 01:31; Admin Dose 3.853 MLS/HR; Start 01/16/19 at 18:00 Propofol 100 ml @ 2.055 mls/ hr Q12H IV Last administered on 01/17/19 04:17; Admin Dose 2.055 MLS/HR; Start 01/16/19 at 19:30 Midazolam HCl 50 ml @ 1 mls/hr TITRATE IV Last administered on 01/17/19 23:15; Admin Dose 5 MLS/HR; Start 01/16/19 at 20:00 Albumin Human 250 ml @ 250 mls/hr PRN PRN IV CVP <10 Last administered on 01/17/19 22:36; Admin Dose 250 MLS/HR; Start 01/17/19 at 01:00 Vancomycin HCl 1.25 gm/Sodium Chloride 250 ml @ 83.333 mls/ hr Q24H IVPB Last administered on 01/17/19 21:40; Admin Dose 83.333 MLS/HR; Start 01/17/19 at 21:00 Fentanyl 100 ml @ 2.5 mls/hr TITRATE IV Last administered on 01/18/19 03:03; Admin Dose 5 MLS/HR; Start 01/17/19 at 10:00 Phenylephrine HCl 80 mg/Dextrose 250 ml @ 18.75 mls/ hr TITRATE IV Last administered on 01/17/19 18:46; Admin Dose 7.5 MLS/HR; Start 01/17/19 at 14:00 NORMA PRINCE NP Jan 18, 2019 14:26
[2019-01-18] MEDS: morphine 2 MG INJ IV PRN ×2 (15:29→20:24)
[2019-01-18] MEDS ORDERED: GLUCOSE GEL 15 GRAM TUBE PO PRN ×2 (17:00)
[2019-01-18] MEDS ORDERED: DEXTROSE 50% 50 ML SYRINGE IV PRN ×2 (17:00)
[2019-01-18] MEDS ORDERED: GLUCAGON 1 MG INJ IM PRN (17:00)
[2019-01-18] MEDS ORDERED: GLUCOSE GEL 15 GRAM TUBE BUCCAL PRN (17:00)
[2019-01-18] MEDS: INSULIN ASPART [NOVOLOG] 3 ML PEN SC SCH ×2 (18:47→21:43)
[2019-01-18] MEDS: LISINOPRIL 10 MG TAB PO SCH ×3 (21:00→22:57)
[2019-01-18] MEDS: ATORVASTATIN 40 MG TAB PO SCH (21:00)
[2019-01-18] MEDS: METOPROLOL 25 MG TAB PO SCH ×2 (21:00→22:50)
[2019-01-18] MEDS: VANCOMYCIN HCL 1.25 GM in SOD CHLORIDE 0.9% 250 ML IVPB SCH (21:17)
[2019-01-18] MEDS ORDERED: ACETAMINOPHEN 650 MG SUPP PR ONE (23:00)
[2019-01-18] MEDS: NITROGLYCERIN (SL) 0.4 MG TAB SL PRN (23:22)
[2019-01-19] VITALS (42 sets, daily range): BP systolic 100–147; BP diastolic 53–78; PULSE 80–101; RESP 18–32
[2019-01-19] MEDS: INSULIN ASPART [NOVOLOG] 3 ML PEN SC SCH ×6 (00:54→20:40)
[2019-01-19] MEDS ORDERED: IPRATROPIUM (NEB) 0.5 MG/2.5 ML AMP HHN PRN (02:30)
[2019-01-19] MEDS ORDERED: LEVALBUTEROL (NEB) 0.63 MG/3 ML AMP HHN PRN (02:30)
[2019-01-19] MEDS: POTASSIUM CHLORIDE 40 MEQ, CALCIUM CHLORIDE 10% 1 GM in DEXTROSE 5%-0.225% NACL 1,000 ML IV SCH ×2 (04:54→20:45)
[2019-01-19] MEDS: morphine 2 MG INJ IV PRN (08:17)
--- NOTE | 2019-01-19 08:44 | PN ---
Date/Time of Note Date/Time of Note DATE: 01/19/19 TIME: 08:42 Assessment/Plan Lines/Catheters IV Catheter Type (from [facility]): cordis Galvez in Place (from Nrs): Yes Assessment/Plan Assessment/Plan extubated yesterday. will start lovenox for DVT proph. start pt/ot. start plavix for NSTEMI. good progrress Exam/Review of Systems Vital Signs Vitals Vital Signs Date Temp Pulse Resp B/P (MAP) Pulse Ox O2 O2 Flow FiO2 Time Delivery Rate 01/19/19 Nasal 5.0 08:00 Cannula 01/19/19 95 31 139/69 99 06:15 (92) 01/19/19 98.8 04:00 01/18/19 30 13:05 Intake and Output 01/18/19 01/18/19 01/19/19 1515:00 23:00 07:00 IntakeIntake Total 521.8 ml 698.16 ml 503.34 ml OutputOutput Total 1196 ml 813 ml 717 ml BalanceBalance -674.2 ml -114.84 ml -213.66 ml Results Result Diagram: 01/19/19 0506 01/19/19 0506 SHARON MONTGOMERY MD Jan 19, 2019 08:44
[2019-01-19] MEDS ORDERED: FUROSEMIDE 20 MG INJ IV ONE ×2 (09:00→11:00)
--- NOTE | 2019-01-19 09:39 | CONS ---
Consult Date/Type/Reason Admit Date/Time Jan 15, 2019 at 01:24 Initial Consult Date 01/17/19 Type of Consult Pulmonary Requesting Provider: NEFTALI LYNN Date/Time of Note DATE: 01/19/19 TIME: 09:37 Subjective Patient extubated yesterday. Appears comfortable this morning no respiratory distress. Weaned off vasopressors. Chest x-ray demonstrates increasing bilateral infiltrates versus effusions. Currently no evidence of respiratory distress or accessory muscle use. Decreased chest tube output noted. Objective Vital Signs Date Temp Pulse Resp B/P (MAP) Pulse Ox O2 O2 Flow FiO2 Time Delivery Rate 01/19/19 Nasal 5.0 08:00 Cannula 01/19/19 90 08:00 01/19/19 31 139/69 99 06:15 (92) 01/19/19 98.8 04:00 01/18/19 30 13:05 Intake and Output 01/18/19 01/18/19 01/19/19 1515:00 23:00 07:00 IntakeIntake Total 521.8 ml 698.16 ml 563.34 ml OutputOutput Total 1196 ml 813 ml 717 ml BalanceBalance -674.2 ml -114.84 ml -153.66 ml Exam GENERAL: Well-nourished well-developed gentleman on nasal cannula O2. VITAL SIGNS: per chart NECK: Supple. No JVD or lymphadenopathy. CARDIAC EXAM: S1, S2. No added sounds or murmurs. CHEST: Decreased air entry bilaterally ABDOMEN: Soft, nontender. No guarding or rebound. EXTREMITIES: No cyanosis, clubbing or edema. NEUROLOGIC: Generalized weakness. No focal deficits. Vent Setting Ventilator Support Mode: CPAP, PS Fraction of Inspired Oxygen pe: 30 Positive End Expiratory Pressu: 5.0 Results/Medications Result Diagram: 01/19/19 0506 01/19/19 0506 Results 24 hrs Laboratory Tests Test 01/18/19 11:59 01/18/19 13:43 01/18/19 16:08 01/18/19 17:20 Bedside Glucose 138 109 141 Blood Gas Blood arterial Specimen Source Arterial Blood 01/18/2019 1:36: Date Drawn 51 PM Arterial Blood 7.468 H pH (Temp corrected) Arterial Blood 34.6 L pCO2 (Temp correct) Arterial Blood 91.0 H pO2 (Temp corrected) Arterial Blood 24.5 HCO3 Arterial Blood 1.0 Base Excess Arterial Blood 96.5 Oxygen Saturatio n Daniel Test N/A Arterial Blood Right Brachial Gas Puncture Site Arterial 0.3 Blood Carboxyhem oglobin Arterial Blood 0.3 Methemoglobin Blood Gas A-a O2 82.2 H Differential Oxyhemoglobin 95.9 Percent Blood Gas 37.0 Temperature Blood Gas Actual 22 Respiration Rate Blood Gas VENT - CPAP Modality FiO2 30.0 Blood Gas Low 5.0 PEEP Setting Blood Gas 10 Pressure Support Blood Gas TM Notified Whom Blood Gas 01/18/2019 1:47: Notified Time 47 PM Test 01/18/19 21:37 01/19/19 00:49 01/19/19 05:00 01/19/19 05:06 Bedside Glucose 154 152 149 Blood Gas Blood arterial Specimen Source Arterial Blood 01/19/2019 5:09: Date Drawn 47 AM Arterial Blood 7.479 H pH (Temp corrected) Arterial Blood 33.6 L pCO2 (Temp correct) Arterial Blood 77.8 L pO2 (Temp corrected) Arterial Blood 24.4 HCO3 Arterial Blood 1.1 Base Excess Arterial Blood 95.0 Oxygen Saturatio n Daniel Test ACCEPTAB Arterial Blood Right Radial Gas Puncture Site Arterial 0.3 Blood Carboxyhem oglobin Arterial Blood 0.3 Methemoglobin Blood Gas A-a O2 96.6 H Differential Oxyhemoglobin 94.4 Percent Blood Gas 37.0 Temperature Blood Gas Actual 25 Respiration Rate Blood Gas NASAL CANNULA Modality FiO2 30.0 Blood Gas MG Notified Whom Blood Gas 01/19/2019 5:22: Notified Time 52 AM White Blood 12.4 H Count Red Blood Count 3.00 L Hemoglobin 8.8 L Hematocrit 27.1 L Mean Corpuscular 90.3 Volume Mean Corpuscular 29.3 Hemoglobin Mean Corpuscular 32.5 Hemoglobin Bailee nt Red Cell 15.2 H Distribution Width Platelet Count 131 L Mean Platelet 11.3 H Volume Immature 0.600 H Granulocytes % Neutrophils % 80.3 H Lymphocytes % 10.9 L Monocytes % 7.5 Eosinophils % 0.6 Basophils % 0.1 Nucleated Red 0.0 Blood Cells % Immature 0.080 H Granulocytes # Neutrophils # 10.0 H Lymphocytes # 1.4 Monocytes # 0.9 Eosinophils # 0.1 Basophils # 0.0 Nucleated Red 0.0 Blood Cells # Sodium Level 138 Potassium Level 4.1 Chloride Level 103 Carbon Dioxide 27 Level Anion Gap 8 Blood Urea 31 H Nitrogen Creatinine 0.84 Est Glomerular Filtrat Rate mL/min Glucose Level 139 Calcium Level 9.5 Magnesium Level 2.1 Medications Current Medications IV Flush (NS 3 ml) 3 ml PER PROTOCOL IV ; Start 01/15/19 at 01:30 Nitroglycerin (Nitroglycerin (Sl Tab) 0.4 Mg) 1 tab Q5M PRN SL .CHEST PAIN Last administered on 01/18/19 23:22; Admin Dose 1 TAB; Start 01/15/19 at 01:30 Docusate Sodium (Colace) 100 mg Q12H PRN PO .CONSTIPATION; Start 01/15/19 at 01:30 Bisacodyl (Dulcolax) 5 mg DAILY PRN PO .CONSTIPATION; Start 01/15/19 at 01:30 Lisinopril (Zestril) 10 mg BID PO Last administered on 01/15/19 20:44; Admin Dose 10 MG; Start 01/15/19 at 09:00 Bicalutamide (Casodex) 50 mg DAILY PO ; Start 01/16/19 at 09:00 Tamsulosin HCl (Flomax) 0.4 mg BID PO Last administered on 01/17/19 21:10; Admin Dose 0.4 MG; Start 01/15/19 at 21:00 Terazosin HCl (Hytrin) 5 mg HS PO Last administered on 01/15/19 20:43; Admin D ose 5 MG; Start 01/15/19 at 21:00; Status Hold Amlodipine Besylate (Norvasc) 10 mg DAILY PO ; Start 01/16/19 at 09:00; Status Hold Atorvastatin Calcium (Lipitor) 40 mg HS PO Last administered on 01/17/19 21:10; Admin Dose 40 MG; Start 01/15/19 at 21:00 Metoprolol Tartrate (Lopressor) 25 mg BID PO Last administered on 01/15/19 20:44; Admin Dose 25 MG; Start 01/15/19 at 21:00 Heparin Sodium (Porcine) (Heparin (1000 Units/ml)) 4,000 unit PER PROTOCOL PRN IV aPTT<47; Start 01/15/19 at 22:00 Heparin Sodium (Porcine) 250 ml @ 8 mls/hr PER PROTOCOL IV Last administered on 4/7/19at 22:10; Admin Dose 8 MLS/HR; Start 01/15/19 at 22:00 Nitroglycerin (Nitroglycerin 2% Oint) 0.5 inch Q8 TD Last administered on 01/16/19at 01:23; Admin Dose 0.5 INCH; Start 01/16/19 at 01:00; Status Hold Oxycodone/ Acetaminophen (Percocet (5/ 325)) 1 tab Q4H PRN PO PAIN; Start 01/16/19 at 11:00 Al Hydrox/Mg Hydrox/Simethicone (Mag-Al Plus) 30 ml Q4H PRN PO GASTROINTESTINAL UPSET; Start 01/16/19 at 11:00 Meropenem/Sodium Chloride 50 ml @ 100 mls/hr Q12 IVPB Last administered on 01/18/19at 21:17; Admin Dose 100 MLS/HR; Start 01/16/19 at 21:00 Vancomycin HCl (Vanco Iv Per Pharmacy) VANCOMYCIN PER PHARMACY PER PROTOCOL XX ; Start 01/16/19 at 11:30 Potassium Chloride 40 meq/ Calcium Chloride 1 gm/Dextrose/ Sodium Chloride 1,030 ml @ 60 mls/hr [id number] IV Last administered on 01/19/19at 04:54; Admin Dose 60 MLS/HR; Start 01/16/19 at 19:00 Oxycodone/ Acetaminophen (Percocet (5/ 325)) 1 tab Q3H PRN PO PAIN LEVEL 1-5; Start 01/16/19 at 17:30 Oxycodone/ Acetaminophen (Percocet (5/ 325)) 2 tab Q3H PRN PO PAIN LEVEL 6-10; Start 01/16/19 at 17:30 Ondansetron HCl (Zofran Inj) 4 mg Q6H PRN IV NAUSEA AND/OR VOMITING; Start 01/16/19 at 17:30 Famotidine (Pepcid) 20 mg BID PO Last administered on 01/18/19at 08:35; Admin Dose 20 MG; Start 01/16/19 at 21:00 Aspirin (Aspirin) 325 mg DAILY PO Last administered on 01/18/19at 08:35; Admin Dose 325 MG; Start 01/17/19 at 09:00 Acetaminophen (Tylenol Tab) 650 mg Q3H PRN PO ELEVATED TEMPERATURE Last administered on 01/18/19at 05:37; Admin Dose 650 MG; Start 01/16/19 at 17:30 Potassium Chloride 50 ml @ 50 mls/hr SEE DIRECTION PRN IVPB K+ LEVEL Last administered on 01/17/19at 09:51; Admin Dose 50 MLS/HR; Start 01/16/19 at 17:30 Magnesium Sulfate/ Dextrose 100 ml @ 100 mls/hr PRN PRN IVPB PENDING LAB VALUE; Start 01/16/19 at 17:30 Nitroglycerin/ Dextrose 250 ml @ 1.5 mls/hr PER PROTOCOL IV ; Start 01/16/19 at 18:00 Dopamine HCl/ Dextrose 250 ml @ 5.138 mls/ hr PER PROTOCOL IV Last administered on 01/17/19at 01:31; Admin Dose 3.853 MLS/HR; Start 01/16/19 at 18:00 Albumin Human 250 ml @ 250 mls/hr PRN PRN IV CVP <10 Last administered on 01/17/19at 22:36; Admin Dose 250 MLS/HR; Start 01/17/19 at 01:00 Vancomycin HCl 1.25 gm/Sodium Chloride 250 ml @ 83.333 mls/ hr Q24H IVPB Last administered on 01/18/19at 21:17; Admin Dose 83.333 MLS/HR; Start 01/17/19 at 21:00 Phenylephrine HCl 80 mg/Dextrose 250 ml @ 18.75 mls/ hr TITRATE IV Last administered on 01/17/19at 18:46; Admin Dose 7.5 MLS/HR; Start 01/17/19 at 14:00 Morphine Sulfate (morphine) 2 mg Q4H PRN IV SEVERE PAIN LEVEL 7-10 Last administered on 01/19/19at 08:17; Admin Dose 2 MG; Start 01/18/19 at 16:00 Insulin Aspart (Novolog Insulin Pen) NOVOLOG *MILD* ALGORI... Q4 SC Last administered on 01/19/19at 05:13; Admin Dose 1 UNIT; Start 01/18/19 at 17:00 Miscellaneous Information 1 ea NOTE XX ; Start 01/18/19 at 17:00 Glucose (Glutose) 15 gm Q15M PRN PO DECREASED GLUCOSE; Start 01/18/19 at 17:00 Glucose (Glutose) 22.5 gm Q15M PRN PO DECREASED GLUCOSE; Start 01/18/19 at 17:00 Dextrose (D50w Syringe) 25 ml Q15M PRN IV DECREASED GLUCOSE; Start 01/18/19 at 17:00 Dextrose (D50w Syringe) 50 ml Q15M PRN IV DECREASED GLUCOSE; Start 01/18/19 at 17:00 Glucagon (Glucagen) 1 mg Q15M PRN IM DECREASED GLUCOSE; Start 01/18/19 at 17:00 Glucose (Glutose) 15 gm Q15M PRN BUCCAL DECREASED GLUCOSE; Start 01/18/19 at 17:00 Metoprolol Tartrate (Lopressor) 25 mg BID PO Last administered on 01/18/19at 22:50; Admin Dose 25 MG; Start 01/18/19 at 21:00 Lisinopril (Zestril) 10 mg BID PO Last administered on 01/18/19at 22:57; Admin Dose 10 MG; Start 01/18/19 at 21:00 Levalbuterol (Xopenex Neb) 0.63 mg Q4H RESP THERAPY PRN HHN SHORTNESS OF BREATH Last administered on 01/19/19at 03:03; Admin Dose 0.63 MG; Start 01/19/19 at 02:3 0 Ipratropium [place] (Atrovent 0.02% (Neb)) 0.5 mg Q4H RESP THERAPY PRN HHN SHORTNESS OF BREATH Last administered on 01/19/19at 03:03; Admin Dose 0.5 MG; Start 01/19/19 at 02:30 Enoxaparin Sodium (Lovenox) 40 mg DAILY SC ; Start 01/19/19 at 09:00 Clopidogrel Bisulfate (plaVIX) 75 mg DAILY PO ; Start 01/19/19 at 09:00 Assessment/Plan Hospital Course (Demo Recall) Assessment 1. Coronary artery disease status post acute coronary artery bypass graft surgery postop day 2 2. Status post shock likely combination of cardiogenic and septic. 3. Persistent leukocytosis 4. Ongoing infiltrates versus pulmonary edema. Ultrasound yesterday demonstrated no significant right effusion. 5. History of prostate cancer Plan 1. Incentive spirometry and chest PT 2. CT chest noncontrast to evaluate lung parenchyma 3. Aspiration precautions 4. Chest tubes per cardiology 5. Physical therapy evaluation critical care time 40 minutes. LA GEE MD, [facility] Jan 19, 2019 09:39
[2019-01-19] MEDS: ASPIRIN 325 MG TAB PO SCH (09:53)
[2019-01-19] MEDS: MEROPENEM 1 GM/50ML(PMX) 50 ML IVPB SCH ×2 (09:54→20:37)
[2019-01-19] MEDS: CLOPIDOGREL 75 MG TAB PO SCH (09:54)
[2019-01-19] MEDS: METOPROLOL 25 MG TAB PO SCH ×2 (09:55→20:39)
[2019-01-19] MEDS: LISINOPRIL 10 MG TAB PO SCH ×2 (09:55→20:38)
[2019-01-19] MEDS: TAMSULOSIN (SR) 0.4 MG CAP PO SCH ×2 (09:56→20:37)
[2019-01-19] MEDS: FAMOTIDINE 20 MG TAB PO SCH ×2 (09:56→20:38)
[2019-01-19] MEDS: ENOXAPARIN 40 MG/0.4 ML SYG SC SCH (10:04)
--- NOTE | 2019-01-19 10:37 | CONS ---
Assessment/Plan Assessment/Plan Hospital Course (Demo Recall) IMPRESSION: 1. Non-ST myocardial infarction with up trending cardiac enzymes.-overnight and then this am patient with uptrending cardiac enzymes. Now s/p LHC with mutivessel CAD and enmergent echo with decreased EF 30-35%. Now post-op day #2 s/p cabg x 4(ENRIQUEZ-LAD, SVG-PDA, SVG-OM, SVG-Ramus) 2. Chest pain secondary to #1.-ongoing 3. Abnormal electrocardiogram with anterolateral deep ST depressions. 4. Hypertension-currently borderline hypotension 5. Dyslipidemia. 6. Benign prostatic hypertrophy. 7. Prostate carcinoma. 8. History of hematuria recently. 9. CHF-systolic acute Recc: -ICU -s/p extubation -Continue asa/statin -Continue BB/ACEI -follow volume status and give dose of lasix Consultation Date/Type/Reason Admit Date/Time Jan 15, 2019 at 01:24 Initial Consult Date 01/15/19 Type of Consult Cardiology Reason for Consultation cad/nstemi s/p cabg Requesting Provider: NEFTALI LYNN Date/Time of Note DATE: 01/19/19 TIME: 10:34 Exam/Review of Systems Vital Signs Vitals Vital Signs Date Temp Pulse Resp B/P (MAP) Pulse Ox O2 O2 Flow FiO2 Time Delivery Rate 01/19/19 Nasal 5.0 08:00 Cannula 01/19/19 90 08:00 01/19/19 31 139/69 99 06:15 (92) 01/19/19 98.8 04:00 01/18/19 30 13:05 Intake and Output 01/18/19 01/18/19 01/19/19 1515:00 23:00 07:00 IntakeIntake Total 521.8 ml 698.16 ml 563.34 ml OutputOutput Total 1196 ml 813 ml 717 ml BalanceBalance -674.2 ml -114.84 ml -153.66 ml Exam Exam Review of Systems: CONSTITUTIONAL: No fevers, chills. PULMONARY: No sob CARDIOVASCULAR: No chest pain/palpitations GASTROINTESTINAL: No nausea/vomiting. GENITOURINARY: No hematuria/dysuria. MUSCULOSKELETAL: No myagias/arthalgias. PSYCHIATRIC: The patient denies depression. NEUROLOGIC: No weakness Constitutional: alert Psych: no complaints Head: normocephalic ENMT: mucosa pink and moist Neck: supple, jvd (9 cm water) Respiratory: diminished breath sounds (at bases/B) Cardiovascular: regular rate and rhythm, other (midline sternotomy covered by drtessing) Gastrointestinal: soft, non-tender Musculoskeletal: muscle tone (normal) Extremities: pitting pedal edema (LE) Neurological: other (No focal deficits) Labs Result Diagram: 01/19/19 0506 01/19/19 0506 Results 24hrs Laboratory Tests Test 01/18/19 11:59 01/18/19 13:43 01/18/19 16:08 01/18/19 17:20 Bedside Glucose 138 109 141 Blood Gas Blood arterial Specimen Source Arterial Blood 01/18/2019 1:36: Date Drawn 51 PM Arterial Blood 7.468 H pH (Temp corrected) Arterial Blood 34.6 L pCO2 (Temp correct) Arterial Blood 91.0 H pO2 (Temp corrected) Arterial Blood 24.5 HCO3 Arterial Blood 1.0 Base Excess Arterial Blood 96.5 Oxygen Saturatio n Daniel Test N/A Arterial Blood Right Brachial Gas Puncture Site Arterial 0.3 Blood Carboxyhem oglobin Arterial Blood 0.3 Methemoglobin Blood Gas A-a O2 82.2 H Differential Oxyhemoglobin 95.9 Percent Blood Gas 37.0 Temperature Blood Gas Actual 22 Respiration Rate Blood Gas VENT - CPAP Modality FiO2 30.0 Blood Gas Low 5.0 PEEP Setting Blood Gas 10 Pressure Support Blood Gas TM Notified Whom Blood Gas 01/18/2019 1:47: Notified Time 47 PM Test 01/18/19 21:37 01/19/19 00:49 01/19/19 05:00 01/19/19 05:06 Bedside Glucose 154 152 149 Blood Gas Blood arterial Specimen Source Arterial Blood 01/19/2019 5:09: Date Drawn 47 AM Arterial Blood 7.479 H pH (Temp corrected) Arterial Blood 33.6 L pCO2 (Temp correct) Arterial Blood 77.8 L pO2 (Temp corrected) Arterial Blood 24.4 HCO3 Arterial Blood 1.1 Base Excess Arterial Blood 95.0 Oxygen Saturatio n Daniel Test ACCEPTAB Arterial Blood Right Radial Gas Puncture Site Arterial 0.3 Blood Carboxyhem oglobin Arterial Blood 0.3 Methemoglobin Blood Gas A-a O2 96.6 H Differential Oxyhemoglobin 94.4 Percent Blood Gas 37.0 Temperature Blood Gas Actual 25 Respiration Rate Blood Gas NASAL CANNULA Modality FiO2 30.0 Blood Gas MG Notified Whom Blood Gas 01/19/2019 5:22: Notified Time 52 AM White Blood 12.4 H Count Red Blood Count 3.00 L Hemoglobin 8.8 L Hematocrit 27.1 L Mean Corpuscular 90.3 Volume Mean Corpuscular 29.3 Hemoglobin Mean Corpuscular 32.5 Hemoglobin Bailee nt Red Cell 15.2 H Distribution Width Platelet Count 131 L Mean Platelet 11.3 H Volume Immature 0.600 H Granulocytes % Neutrophils % 80.3 H Lymphocytes % 10.9 L Monocytes % 7.5 Eosinophils % 0.6 Basophils % 0.1 Nucleated Red 0.0 Blood Cells % Immature 0.080 H Granulocytes # Neutrophils # 10.0 H Lymphocytes # 1.4 Monocytes # 0.9 Eosinophils # 0.1 Basophils # 0.0 Nucleated Red 0.0 Blood Cells # Sodium Level 138 Potassium Level 4.1 Chloride Level 103 Carbon Dioxide 27 Level Anion Gap 8 Blood Urea 31 H Nitrogen Creatinine 0.84 Est Glomerular Filtrat Rate mL/min Glucose Level 139 Calcium Level 9.5 Magnesium Level 2.1 Test 01/19/19 10:10 Bedside Glucose 151 Medications Medications Current Medications IV Flush (NS 3 ml) 3 ml PER PROTOCOL IV ; Start 01/15/19 at 01:30 Nitroglycerin (Nitroglycerin (Sl Tab) 0.4 Mg) 1 tab Q5M PRN SL .CHEST PAIN Last administered on 01/18/19at 23:22; Admin Dose 1 TAB; Start 01/15/19 at 01:30 Docusate Sodium (Colace) 100 mg Q12H PRN PO .CONSTIPATION; Start 01/15/19 at 01:30 Bisacodyl (Dulcolax) 5 mg DAILY PRN PO .CONSTIPATION; Start 01/15/19 at 01:30 Bicalutamide (Casodex) 50 mg DAILY PO ; Start 01/16/19 at 09:00 Tamsulosin HCl (Flomax) 0.4 mg BID PO Last administered on 01/19/19at 09:56; Admin Dose 0.4 MG; Start 01/15/19 at 21:00 Terazosin HCl (Hytrin) 5 mg HS PO Last administered on 01/15/19at 20:43; Admin Dose 5 MG; Start 01/15/19 at 21:00; Status Hold Amlodipine Besylate (Norvasc) 10 mg DAILY PO ; Start 01/16/19 at 09:00; Status Hold Atorvastatin Calcium (Lipitor) 40 mg HS PO Last administered on 01/17/19at 21:10; Admin Dose 40 MG; Start 01/15/19 at 21:00 Heparin Sodium (Porcine) (Heparin (1000 Units/ml)) 4,000 unit PER PROTOCOL PRN IV aPTT<47; Start 01/15/19 at 22:00 Heparin Sodium (Porcine) 250 ml @ 8 mls/hr PER PROTOCOL IV Last administered on 01/15/19at 22:10; Admin Dose 8 MLS/HR; Start 01/15/19 at 22:00 Nitroglycerin (Nitroglycerin 2% Oint) 0.5 inch Q8 TD Last administered on 01/16/19at 01:23; Admin Dose 0.5 INCH; Start 01/16/19 at 01:00; Status Hold Oxycodone/ Acetaminophen (Percocet (5/ 325)) 1 tab Q4H PRN PO PAIN; Start 01/16/19 at 11:00 Al Hydrox/Mg Hydrox/Simethicone (Mag-Al Plus) 30 ml Q4H PRN PO GASTROINTESTINAL UPSET; Start 01/16/19 at 11:00 Meropenem/Sodium Chloride 50 ml @ 100 mls/hr Q12 IVPB Last administered on 01/19/19at 09:54; Admin Dose 100 MLS/HR; Start 01/16/19 at 21:00 Vancomycin HCl (Vanco Iv Per Pharmacy) VANCOMYCIN PER PHARMACY PER PROTOCOL XX ; Start 01/16/19 at 11:30 Potassium Chloride 40 meq/ Calcium Chloride 1 gm/Dextrose/ Sodium Chloride 1,030 ml @ 60 mls/hr [id number] IV Last administered on 01/19/19at 04:54; Admin Dose 60 MLS/HR; Start 01/16/19 at 19:00 Oxycodone/ Acetaminophen (Percocet (5/ 325)) 1 tab Q3H PRN PO PAIN LEVEL 1-5; Start 01/16/19 at 17:30 Oxycodone/ Acetaminophen (Percocet (5/ 325)) 2 tab Q3H PRN PO PAIN LEVEL 6-10; Start 01/16/19 at 17:30 Ondansetron HCl (Zofran Inj) 4 mg Q6H PRN IV NAUSEA AND/OR VOMITING; Start 01/16/19 at 17:30 Famotidine (Pepcid) 20 mg BID PO Last administered on 01/19/19 09:56; Admin Dose 20 MG; Start 01/16/19 at 21:00 Aspirin (Aspirin) 325 mg DAILY PO Last administered on 01/19/19 09:53; Admin Dose 325 MG; Start 01/17/19 at 09:00 Acetaminophen (Tylenol Tab) 650 mg Q3H PRN PO ELEVATED TEMPERATURE Last administered on 01/18/19 05:37; Admin Dose 650 MG; Start 01/16/19 at 17:30 Potassium Chloride 50 ml @ 50 mls/hr SEE DIRECTION PRN IVPB K+ LEVEL Last administered on 01/17/19 09:51; Admin Dose 50 MLS/HR; Start 01/16/19 at 17:30 Magnesium Sulfate/ Dextrose 100 ml @ 100 mls/hr PRN PRN IVPB PENDING LAB VALUE; Start 01/16/19 at 17:30 Nitroglycerin/ Dextrose 250 ml @ 1.5 mls/hr PER PROTOCOL IV ; Start 01/16/19 at 18:00 Dopamine HCl/ Dextrose 250 ml @ 5.138 mls/ hr PER PROTOCOL IV Last administered on 01/17/19 01:31; Admin Dose 3.853 MLS/HR; Start 01/16/19 at 18:00 Albumin Human 250 ml @ 250 mls/hr PRN PRN IV CVP <10 Last administered on 01/17/19 22:36; Admin Dose 250 MLS/HR; Start 01/17/19 at 01:00 Vancomycin HCl 1.25 gm/Sodium Chloride 250 ml @ 83.333 mls/ hr Q24H IVPB Last administered on 01/18/19 21:17; Admin Dose 83.333 MLS/HR; Start 01/17/19 at 21:00 Phenylephrine HCl 80 mg/Dextrose 250 ml @ 18.75 mls/ hr TITRATE IV Last administered on 01/17/19 18:46; Admin Dose 7.5 MLS/HR; Start 01/17/19 at 14:00 Morphine Sulfate (morphine) 2 mg Q4H PRN IV SEVERE PAIN LEVEL 7-10 Last administered on 01/19/19at 08:17; Admin Dose 2 MG; Start 01/18/19 at 16:00 Insulin Aspart (Novolog Insulin Pen) NOVOLOG *MILD* ALGORI... Q4 SC Last administered on 01/19/19at 10:21; Admin Dose 1 UNIT; Start 01/18/19 at 17:00 Miscellaneous Information 1 ea NOTE XX ; Start 01/18/19 at 17:00 Glucose (Glutose) 15 gm Q15M PRN PO DECREASED GLUCOSE; Start 01/18/19 at 17:00 Glucose (Glutose) 22.5 gm Q15M PRN PO DECREASED GLUCOSE; Start 01/18/19 at 17:00 Dextrose (D50w Syringe) 25 ml Q15M PRN IV DECREASED GLUCOSE; Start 01/18/19 at 17:00 Dextrose (D50w Syringe) 50 ml Q15M PRN IV DECREASED GLUCOSE; Start 01/18/19 at 17:00 Glucagon (Glucagen) 1 mg Q15M PRN IM DECREASED GLUCOSE; Start 01/18/19 at 17:00 Glucose (Glutose) 15 gm Q15M PRN BUCCAL DECREASED GLUCOSE; Start 01/18/19 at 17:00 Metoprolol Tartrate (Lopressor) 25 mg BID PO Last administered on 01/19/19at 09:55; Admin Dose 25 MG; Start 01/18/19 at 21:00 Lisinopril (Zestril) 10 mg BID PO Last administered on 01/19/19at 09:55; Admin Dose 10 MG; Start 01/18/19 at 21:00 Levalbuterol (Xopenex Neb) 0.63 mg Q4H RESP THERAPY PRN HHN SHORTNESS OF BREATH Last administered on 01/19/19at 03:03; Admin Dose 0.63 MG; Start 01/19/19 at 02:30 Ipratropium [place] (Atrovent 0.02% (Neb)) 0.5 mg Q4H RESP THERAPY PRN HHN SHORTNESS OF BREATH Last administered on 01/19/19at 03:03; Admin Dose 0.5 MG; Start 01/19/19 at 02:30 Enoxaparin Sodium (Lovenox) 40 mg DAILY SC Last administered on 01/19/19at 10:04; Admin Dose 40 MG; Start 01/19/19 at 09:00 Clopidogrel Bisulfate (plaVIX) 75 mg DAILY PO Last administered on 01/19/19at 09:54; Admin Dose 75 MG; Start 01/19/19 at 09:00 NEFTALI LYNN Jan 19, 2019 10:36
[2019-01-19] MEDS: BICALUTAMIDE 50 MG TAB PO SCH (11:27)
--- NOTE | 2019-01-19 12:25 | CONS ---
Assessment/Plan Assessment/Plan Hospital Course (Demo Recall) Patient was extubated yesterday he is awake looks comfortable on nasal cannula afebrile and off Skinny-Synephrine drip. WBC today 12.4 platelets 131 BUN 31 creatinine 0.84 Chest x-ray this morning revealed mild cardiomegaly with pulmonary vascular congestion Microbiology: Blood culture on admission grew Citrobacter freundii, repeat blood cultures negative sputum culture pending urine culture negative Indwelling: right IJ introducer, chest tubes, Galvez, pacing wires Antimicrobials: Vancomycin, meropenem Physical examination: Well-developed well-nourished elderly man who is intubated sedated in no distress. Head atraumatic normocephalic sclera nonicteric. Buccal mucosa dry. Neck is supple chest rise symmetrical breath sounds diminished at bases. Heart: S1-S2. Abdomen distended, hypoactive bowel tones. Extremities mottled and cyanotic. Assessment: 1. S/p septic shock, possibly also cardiogenic 2. Gram-negative david bacteremia likely secondary to UTI 3. Pulmonary edema with superimposed pneumonia, possible aspiration 3. Acute ID status post emergency CABG 01/16/19 4. History of prostate cancer 5. History of hypertension 6. Acute anemia Plan: Stable post extubation, continue present care, antibiotics, follow sputum cultures Consultation Date/Type/Reason Admit Date/Time Jan 15, 2019 at 01:24 Initial Consult Date 01/17/19 Type of Consult id Requesting Provider: NEFTALI LYNN Date/Time of Note DATE: 01/19/19 TIME: 12:23 Exam/Review of Systems Exam Vitals Vital Signs Date Temp Pulse Resp B/P (MAP) Pulse Ox O2 O2 Flow FiO2 Time Delivery Rate 01/19/19 85 31 122/68 100 Nasal 11:00 (86) Cannula 01/19/19 99.2 08:00 01/19/19 5.0 08:00 01/18/19 30 13:05 Intake and Output 01/18/19 01/18/19 01/19/19 1515:00 23:00 07:00 IntakeIntake Total 521.8 ml 698.16 ml 563.34 ml OutputOutput Total 1196 ml 813 ml 717 ml BalanceBalance -674.2 ml -114.84 ml -153.66 ml Results Result Diagram: 01/19/19 0506 01/19/19 0506 Results 24hrs Laboratory Tests Test 01/18/19 13:43 01/18/19 16:08 01/18/19 17:20 01/18/19 21:37 Blood Gas Blood arterial Specimen Source Arterial Blood 01/18/2019 1:36: Date Drawn 51 PM Arterial Blood 7.468 H pH (Temp corrected) Arterial Blood 34.6 L pCO2 (Temp correct) Arterial Blood 91.0 H pO2 (Temp corrected) Arterial Blood 24.5 HCO3 Arterial Blood 1.0 Base Excess Arterial Blood 96.5 Oxygen Saturatio n Daniel Test N/A Arterial Blood Right Brachial Gas Puncture Site Arterial 0.3 Blood Carboxyhem oglobin Arterial Blood 0.3 Methemoglobin Blood Gas A-a O2 82.2 H Differential Oxyhemoglobin 95.9 Percent Blood Gas 37.0 Temperature Blood Gas Actual 22 Respiration Rate Blood Gas VENT - CPAP Modality FiO2 30.0 Blood Gas Low 5.0 PEEP Setting Blood Gas 10 Pressure Support Blood Gas TM Notified Whom Blood Gas 01/18/2019 1:47: Notified Time 47 PM Bedside Glucose 109 141 154 Test 01/19/19 00:49 01/19/19 05:00 01/19/19 05:06 01/19/19 10:10 Bedside Glucose 152 149 151 Blood Gas Blood arterial Specimen Source Arterial Blood 01/19/2019 5:09: Date Drawn 47 AM Arterial Blood 7.479 H pH (Temp corrected) Arterial Blood 33.6 L pCO2 (Temp correct) Arterial Blood 77.8 L pO2 (Temp corrected) Arterial Blood 24.4 HCO3 Arterial Blood 1.1 Base Excess Arterial Blood 95.0 Oxygen Saturatio n Daniel Test ACCEPTAB Arterial Blood Right Radial Gas Puncture Site Arterial 0.3 Blood Carboxyhem oglobin Arterial Blood 0.3 Methemoglobin Blood Gas A-a O2 96.6 H Differential Oxyhemoglobin 94.4 Percent Blood Gas 37.0 Temperature Blood Gas Actual 25 Respiration Rate Blood Gas NASAL CANNULA Modality FiO2 30.0 Blood Gas MG Notified Whom Blood Gas 01/19/2019 5:22: Notified Time 52 AM White Blood 12.4 H Count Red Blood Count 3.00 L Hemoglobin 8.8 L Hematocrit 27.1 L Mean Corpuscular 90.3 Volume Mean Corpuscular 29.3 Hemoglobin Mean Corpuscular 32.5 Hemoglobin Bailee nt Red Cell 15.2 H Distribution Width Platelet Count 131 L Mean Platelet 11.3 H Volume Immature 0.600 H Granulocytes % Neutrophils % 80.3 H Lymphocytes % 10.9 L Monocytes % 7.5 Eosinophils % 0.6 Basophils % 0.1 Nucleated Red 0.0 Blood Cells % Immature 0.080 H Granulocytes # Neutrophils # 10.0 H Lymphocytes # 1.4 Monocytes # 0.9 Eosinophils # 0.1 Basophils # 0.0 Nucleated Red 0.0 Blood Cells # Sodium Level 138 Potassium Level 4.1 Chloride Level 103 Carbon Dioxide 27 Level Anion Gap 8 Blood Urea 31 H Nitrogen Creatinine 0.84 Est Glomerular Filtrat Rate mL/min Glucose Level 139 Calcium Level 9.5 Magnesium Level 2.1 Medications Medication Current Medications IV Flush (NS 3 ml) 3 ml PER PROTOCOL IV ; Start 01/15/19 at 01:30 Nitroglycerin (Nitroglycerin (Sl Tab) 0.4 Mg) 1 tab Q5M PRN SL .CHEST PAIN Last administered on 01/18/19at 23:22; Admin Dose 1 TAB; Start 01/15/19 at 01:30 Docusate Sodium (Colace) 100 mg Q12H PRN PO .CONSTIPATION; Start 01/15/19 at 01:30 Bisacodyl (Dulcolax) 5 mg DAILY PRN PO .CONSTIPATION; Start 01/15/19 at 01:30 Bicalutamide (Casodex) 50 mg DAILY PO Last administered on 01/19/19at 11:27; Admin Dose 50 MG; Start 01/16/19 at 09:00 Tamsulosin HCl (Flomax) 0.4 mg BID PO Last administered on 01/19/19at 09:56; Admin Dose 0.4 MG; Start 01/15/19 at 21:00 Terazosin HCl (Hytrin) 5 mg HS PO Last administered on 01/15/19at 20:43; Admin Dose 5 MG; Start 01/15/19 at 21:00; Status Hold Amlodipine Besylate (Norvasc) 10 mg DAILY PO ; Start 01/16/19 at 09:00; Status Hold Atorvastatin Calcium (Lipitor) 40 mg HS PO Last administered on 01/17/19at 21:10; Admin Dose 40 MG; Start 01/15/19 at 21:00 Heparin Sodium (Porcine) (Heparin (1000 Units/ml)) 4,000 unit PER PROTOCOL PRN IV aPTT<47; Start 01/15/19 at 22:00 Heparin Sodium (Porcine) 250 ml @ 8 mls/hr PER PROTOCOL IV Last administered on 01/15/19at 22:10; Admin Dose 8 MLS/HR; Start 01/15/19 at 22:00 Nitroglycerin (Nitroglycerin 2% Oint) 0.5 inch Q8 TD Last administered on 01/16/19at 01:23; Admin Dose 0.5 INCH; Start 01/16/19 at 01:00; Status Hold Oxycodone/ Acetaminophen (Percocet (5/ 325)) 1 tab Q4H PRN PO PAIN; Start 01/16/19 at 11:00 Al Hydrox/Mg Hydrox/Simethicone (Mag-Al Plus) 30 ml Q4H PRN PO GASTROINTESTINAL UPSET; Start 01/16/19 at 11:00 Meropenem/Sodium Chloride 50 ml @ 100 mls/hr Q12 IVPB Last administered on 01/19/19at 09:54; Admin Dose 100 MLS/HR; Start 01/16/19 at 21:00 Vancomycin HCl (Vanco Iv Per Pharmacy) VANCOMYCIN PER PHARMACY PER PROTOCOL XX ; Start 01/16/19 at 11:30 Potassium Chloride 40 meq/ Calcium Chloride 1 gm/Dextrose/ Sodium Chloride 1,030 ml @ 60 mls/hr [id number] IV Last administered on 01/19/19at 04:54; Admin Dose 60 MLS/HR; Start 01/16/19 at 19:00 Oxycodone/ Acetaminophen (Percocet (5/ 325)) 1 tab Q3H PRN PO PAIN LEVEL 1-5; Start 01/16/19 at 17:30 Oxycodone/ Acetaminophen (Percocet (5/ 325)) 2 tab Q3H PRN PO PAIN LEVEL 6-10; Start 01/16/19 at 17:30 Ondansetron HCl (Zofran Inj) 4 mg Q6H PRN IV NAUSEA AND/OR VOMITING; Start 01/16/19 at 17:30 Famotidine (Pepcid) 20 mg BID PO Last administered on 01/19/19at 09:56; Admin Dose 20 MG; Start 01/16/19 at 21:00 Aspirin (Aspirin) 325 mg DAILY PO Last administered on 01/19/19at 09:53; Admin Dose 325 MG; Start 01/17/19 at 09:00 Acetaminophen (Tylenol Tab) 650 mg Q3H PRN PO ELEVATED TEMPERATURE Last ad ministered on 01/18/19 05:37; Admin Dose 650 MG; Start 01/16/19 at 17:30 Potassium Chloride 50 ml @ 50 mls/hr SEE DIRECTION PRN IVPB K+ LEVEL Last administered on 01/17/19 09:51; Admin Dose 50 MLS/HR; Start 01/16/19 at 17:30 Magnesium Sulfate/ Dextrose 100 ml @ 100 mls/hr PRN PRN IVPB PENDING LAB V [facility]; Start 01/16/19 at 17:30 Nitroglycerin/ Dextrose 250 ml @ 1.5 mls/hr PER PROTOCOL IV ; Start 01/16/19 at 18:00 Dopamine HCl/ Dextrose 250 ml @ 5.138 mls/ hr PER PROTOCOL IV Last administered on 01/17/19 01:31; Admin Dose 3.853 MLS/HR; Start 01/16/19 at 18:00 Albumin Human 250 ml @ 250 mls/hr PRN PRN IV CVP <10 Last administered on 01/17/19 22:36; Admin Dose 250 MLS/HR; Start 01/17/19 at 01:00 Vancomycin HCl 1.25 gm/Sodium Chloride 250 ml @ 83.333 mls/ hr Q24H IVPB Last administered on 01/18/19 21:17; Admin Dose 83.333 MLS/HR; Start 01/17/19 at 21:00 Phenylephrine HCl 80 mg/Dextrose 250 ml @ 18.75 mls/ hr TITRATE IV Last administered on 01/17/19 18:46; Admin Dose 7.5 MLS/HR; Start 01/17/19 at 14:00 Morphine Sulfate (morphine) 2 mg Q4H PRN IV SEVERE PAIN LEVEL 7-10 Last administered on 01/19/19 08:17; Admin Dose 2 MG; Start 01/18/19 at 16:00 Insulin Aspart (Novolog Insulin Pen) NOVOLOG *MILD* ALGORI... Q4 SC Last administered on 01/19/19 10:21; Admin Dose 1 UNIT; Start 01/18/19 at 17:00 Miscellaneous Information 1 ea NOTE XX ; Start 01/18/19 at 17:00 Glucose (Glutose) 15 gm Q15M PRN PO DECREASED GLUCOSE; Start 01/18/19 at 17:00 Glucose (Glutose) 22.5 gm Q15M PRN PO DECREASED GLUCOSE; Start 01/18/19 at 17:00 Dextrose (D50w Syringe) 25 ml Q15M PRN IV DECREASED GLUCOSE; Start 01/18/19 at 17:00 Dextrose (D50w Syringe) 50 ml Q15M PRN IV DECREASED GLUCOSE; Start 01/18/19 at 17:00 Glucagon (Glucagen) 1 mg Q15M PRN IM DECREASED GLUCOSE; Start 01/18/19 at 17:00 Glucose (Glutose) 15 gm Q15M PRN BUCCAL DECREASED GLUCOSE; Start 01/18/19 at 17:00 Metoprolol Tartrate (Lopressor) 25 mg BID PO Last administered on 01/19/19at 09:55; Admin Dose 25 MG; Start 01/18/19 at 21:00 Lisinopril (Zestril) 10 mg BID PO Last administered on 01/19/19at 09:55; Admin Dose 10 MG; Start 01/18/19 at 21:00 Levalbuterol (Xopenex Neb) 0.63 mg Q4H RESP THERAPY PRN HHN SHORTNESS OF BREATH Last administered on 01/19/19at 03:03; Admin Dose 0.63 MG; Start 01/19/19 at 02:30 Ipratropium [place] (Atrovent 0.02% (Neb)) 0.5 mg Q4H RESP THERAPY PRN HHN SHORTNESS OF BREATH Last administered on 01/19/19at 03:03; Admin Dose 0.5 MG; Start 01/19/19 at 02:30 Enoxaparin Sodium (Lovenox) 40 mg DAILY SC Last administered on 01/19/19 10:04; Admin Dose 40 MG; Start 01/19/19 at 09:00 Clopidogrel Bisulfate (plaVIX) 75 mg DAILY PO Last administered on 01/19/19at 09:54; Admin Dose 75 MG; Start 01/19/19 at 09:00 NORMA PRINCE NP Jan 19, 2019 12:25
--- NOTE | 2019-01-19 15:54 | PN ---
Date/Time of Note Date/Time of Note DATE: 01/19/19 TIME: 15:51 Objective Vitals Vital Signs Date Temp Pulse Resp B/P (MAP) Pulse Ox O2 O2 Flow FiO2 Time Delivery Rate 01/19/19 80 12:00 01/19/19 31 122/68 100 Nasal 11:00 (86) Cannula 01/19/19 99.2 08:00 01/19/19 5.0 08:00 01/18/19 30 13:05 Intake and Output 01/18/19 01/18/19 01/19/19 1515:00 23:00 07:00 IntakeIntake Total 521.8 ml 698.16 ml 563.34 ml OutputOutput Total 1196 ml 813 ml 717 ml BalanceBalance -674.2 ml -114.84 ml -153.66 ml Results Result Diagram: 01/19/19 0506 01/19/19 0506 Medications Medications Current Medications IV Flush (NS 3 ml) 3 ml PER PROTOCOL IV ; Start 01/15/19 at 01:30 Nitroglycerin (Nitroglycerin (Sl Tab) 0.4 Mg) 1 tab Q5M PRN SL .CHEST PAIN Last administered on 01/18/19at 23:22; Admin Dose 1 TAB; Start 01/15/19 at 01:30 Docusate Sodium (Colace) 100 mg Q12H PRN PO .CONSTIPATION; Start 01/15/19 at 01:30 Bisacodyl (Dulcolax) 5 mg DAILY PRN PO .CONSTIPATION; Start 01/15/19 at 01:30 Bicalutamide (Casodex) 50 mg DAILY PO Last administered on 01/19/19at 11:27; Admin Dose 50 MG; Start 01/16/19 at 09:00 Tamsulosin HCl (Flomax) 0.4 mg BID PO Last administered on 01/19/19at 09:56; Admin Dose 0.4 MG; Start 01/15/19 at 21:00 Terazosin HCl (Hytrin) 5 mg HS PO Last administered on 01/15/19at 20:43; Admin Dose 5 MG; Start 01/15/19 at 21:00; Status Hold Amlodipine Besylate (Norvasc) 10 mg DAILY PO ; Start 01/16/19 at 09:00; Status Hold Atorvastatin Calcium (Lipitor) 40 mg HS PO Last administered on 01/17/19at 21:10; Admin Dose 40 MG; Start 01/15/19 at 21:00 Heparin Sodium (Porcine) (Heparin (1000 Units/ml)) 4,000 unit PER PROTOCOL PRN IV aPTT<47; Start 01/15/19 at 22:00 Heparin Sodium (Porcine) 250 ml @ 8 mls/hr PER PROTOCOL IV Last administered on 01/15/19at 22:10; Admin Dose 8 MLS/HR; Start 01/15/19 at 22:00 Nitroglycerin (Nitroglycerin 2% Oint) 0.5 inch Q8 TD Last administered on 01/16/19at 01:23; Admin Dose 0.5 INCH; Start 01/16/19 at 01:00; Status Hold Oxycodone/ Acetaminophen (Percocet (5/ 325)) 1 tab Q4H PRN PO PAIN; Start 01/16/19 at 11:00 Al Hydrox/Mg Hydrox/Simethicone (Mag-Al Plus) 30 ml Q4H PRN PO GASTROINTESTINAL UPSET; Start 01/16/19 at 11:00 Meropenem/Sodium Chloride 50 ml @ 100 mls/hr Q12 IVPB Last administered on 01/19/19at 09:54; Admin Dose 100 MLS/HR; Start 01/16/19 at 21:00 Vancomycin HCl (Vanco Iv Per Pharmacy) VANCOMYCIN PER PHARMACY PER PROTOCOL XX ; Start 01/16/19 at 11:30 Potassium Chloride 40 meq/ Calcium Chloride 1 gm/Dextrose/ Sodium Chloride 1,030 ml @ 60 mls/hr [id number] IV Last administered on 01/19/19at 04:54; Admin Dose 60 MLS/HR; Start 01/16/19 at 19:00 Oxycodone/ Acetaminophen (Percocet (5/ 325)) 1 tab Q3H PRN PO PAIN LEVEL 1-5; Start 01/16/19 at 17:30 Oxycodone/ Acetaminophen (Percocet (5/ 325)) 2 tab Q3H PRN PO PAIN LEVEL 6-10; Start 01/16/19 at 17:30 Ondansetron HCl (Zofran Inj) 4 mg Q6H PRN IV NAUSEA AND/OR VOMITING; Start 01/16/19 at 17:30 Famotidine (Pepcid) 20 mg BID PO Last administered on 01/19/19 09:56; Admin Dose 20 MG; Start 01/16/19 at 21:00 Aspirin (Aspirin) 325 mg DAILY PO Last administered on 01/19/19 09:53; Admin Dose 325 MG; Start 01/17/19 at 09:00 Acetaminophen (Tylenol Tab) 650 mg Q3H PRN PO ELEVATED TEMPERATURE Last administered on 01/18/19 05:37; Admin Dose 650 MG; Start 01/16/19 at 17:30 Potassium Chloride 50 ml @ 50 mls/hr SEE DIRECTION PRN IVPB K+ LEVEL Last administered on 01/17/19 09:51; Admin Dose 50 MLS/HR; Start 01/16/19 at 17:30 Magnesium Sulfate/ Dextrose 100 ml @ 100 mls/hr PRN PRN IVPB PENDING LAB VALUE; Start 01/16/19 at 17:30 Nitroglycerin/ Dextrose 250 ml @ 1.5 mls/hr PER PROTOCOL IV ; Start 01/16/19 at 18:00 Dopamine HCl/ Dextrose 250 ml @ 5.138 mls/ hr PER PROTOCOL IV Last administer ed on 01/17/19 01:31; Admin Dose 3.853 MLS/HR; Start 01/16/19 at 18:00 Albumin Human 250 ml @ 250 mls/hr PRN PRN IV CVP <10 Last administered on 01/17/19 22:36; Admin Dose 250 MLS/HR; Start 01/17/19 at 01:00 Vancomycin HCl 1.25 gm/Sodium Chloride 250 ml @ 83.333 mls/ hr Q24H IVPB Last administered on 01/18/19 21:17; Admin Dose 83.333 MLS/HR; Start 01/17/19 at 21:00 Phenylephrine HCl 80 mg/Dextrose 250 ml @ 18.75 mls/ hr TITRATE IV Last administered on 01/17/19 18:46; Admin Dose 7.5 MLS/HR; Start 01/17/19 at 14:00 Morphine Sulfate (morphine) 2 mg Q4H PRN IV SEVERE PAIN LEVEL 7-10 Last admin istered on 01/19/19 08:17; Admin Dose 2 MG; Start 01/18/19 at 16:00 Insulin Aspart (Novolog Insulin Pen) NOVOLOG *MILD* ALGORI... Q4 SC Last administered on 01/19/19at 14:02; Admin Dose 1 UNIT; Start 01/18/19 at 17:00 Miscellaneous Information 1 ea NOTE XX ; Start 01/18/19 at 17:00 Glucose (Glutose) 15 gm Q15M PRN PO DECREASED GLUCOSE; Start 01/18/19 at 17:00 Glucose (Glutose) 22.5 gm Q15M PRN PO DECREASED GLUCOSE; Start 01/18/19 at 17:00 Dextrose (D50w Syringe) 25 ml Q15M PRN IV DECREASED GLUCOSE; Start 01/18/19 at 17:00 Dextrose (D50w Syringe) 50 ml Q15M PRN IV DECREASED GLUCOSE; Start 01/18/19 at 17:00 Glucagon (Glucagen) 1 mg Q15M PRN IM DECREASED GLUCOSE; Start 01/18/19 at 17:00 Glucose (Glutose) 15 gm Q15M PRN BUCCAL DECREASED GLUCOSE; Start 01/18/19 at 17:00 Metoprolol Tartrate (Lopressor) 25 mg BID PO Last administered on 01/19/19at 09:55; Admin Dose 25 MG; Start 01/18/19 at 21:00 Lisinopril (Zestril) 10 mg BID PO Last administered on 01/19/19at 09:55; Admin Dose 10 MG; Start 01/18/19 at 21:00 Levalbuterol (Xopenex Neb) 0.63 mg Q4H RESP THERAPY PRN HHN SHORTNESS OF BREATH Last administered on 01/19/19at 03:03; Admin Dose 0.63 MG; Start 01/19/19 at 02:30 Ipratropium [place] (Atrovent 0.02% (Neb)) 0.5 mg Q4H RESP THERAPY PRN HHN SHORTNESS OF BREATH Last administered on 01/19/19at 03:03; Admin Dose 0.5 MG; Start 01/19/19 at 02:30 Enoxaparin Sodium (Lovenox) 40 mg DAILY SC Last administered on 01/19/19at 10:04; Admin Dose 40 MG; Start 01/19/19 at 09:00 Clopidogrel Bisulfate (plaVIX) 75 mg DAILY PO Last administered on 01/19/19at 09:54; Admin Dose 75 MG; Start 01/19/19 at 09:00 Miscellaneous Information (*Rx Drug Level Order Reminder*) VANCO TROUGH ON 01/09... 1999 ONCE XX ; Start 01/19/19 at 20:00; Stop 01/19/19 at 20:01 VTE Prophylaxis Risk score (from Ns)>0 risk: 8 SCD applied (from [facility] [place]): Yes Lines/Catheters IV Catheter Type: Galvez in Place: No Assessment/Plan Hospital Course Subjective Patient extubated, alert and oriented, doing well Objective Physical exam General: Patient is laying in bed and answering questions appropriately Mentation: Patient is alert and oriented Head: Normocephalic atraumatic Eyes: EOMI, pupils reactive to light Neck: Supple, nontender, midline Respiratory: Coarse to auscultation bilaterally Cardiovascular: regular rate, no obvious murmurs Gastrointestinal: non-tender to palpation, bowel sounds heard. Neurological: Able to move all extremities Skin: No new skin lesions A/P Non-ST elevation VT, status post left heart cath and now multivessel intervention with open heart surgery done January 16, 2019, -Continue pressors and other medications per cardiology and cardiothoracic surgeon, titrate off Skinny-Synephrine as tolerated - ECHO from November 2018 shows an ejection fraction of roughly 35-40% with diastolic dysfunction. Sepsis secondary to UTI - UA results noted. Will await urine cultures for sensitivities - Continue current antibiotic - may be catheter related given had one in place for 2 months -ID consulted Bacteremia -Gram-negative david, possible UTI source, infectious disease consulted, continue IV antibiotic Urinary retention - will restart home medications and monitor output. -Some decrease per nursing staff and urine output however this may be due secondary to everything else that is going on with above CABG and hypotension versus actual retention, however will monitor closely, unlikely retention given Galvez catheter Pleural effusions -Pulmonology on board -Chest physiotherapy ordered H/o Prostate cancer - follows with [facility] HTN - continue home medications CM - continue home medications 7. Disposition -More than 40 minutes of critical care time was spent on this encounter -Cardiothoracic and cardiology recommendations appreciated - PONCHO PEREYRA Jan 19, 2019 15:54
[2019-01-19] MEDS: ATORVASTATIN 40 MG TAB PO SCH (20:38)
[2019-01-19] MEDS: VANCOMYCIN HCL 1.25 GM in SOD CHLORIDE 0.9% 250 ML IVPB SCH (21:39)
[2019-01-20] VITALS (22 sets, daily range): BP systolic 87–129; BP diastolic 55–73; PULSE 73–91; RESP 16–26
[2019-01-20] MEDS ORDERED: ZOLPIDEM 5 MG TAB PO ONE (00:24)
[2019-01-20] MEDS: ACETAMINOPHEN 325 MG TAB PO PRN (01:17)
[2019-01-20] MEDS: ACCU-CHEK XX SCH (02:39)
[2019-01-20] MEDS: INSULIN ASPART [NOVOLOG] 3 ML PEN SC SCH ×4 (07:35→21:00)
[2019-01-20] MEDS ORDERED: VANCOMYCIN 1 GM 250 ML IVPB SCH (09:00)
--- NOTE | 2019-01-20 09:18 | PN ---
Date/Time of Note Date/Time of Note DATE: 01/20/19 TIME: 09:18 Objective Vitals Vital Signs Date Temp Pulse Resp B/P (MAP) Pulse Ox O2 O2 Flow FiO2 Time Delivery Rate 01/20/19 99.3 85 20 109/57 100 Nasal 3.0 06:00 (74) Cannula 01/18/19 30 13:05 Intake and Output 01/19/19 01/19/19 01/20/19 1515:00 23:00 07:00 IntakeIntake Total 590 ml 600 ml 550 ml OutputOutput Total 1637 ml 473 ml 719 ml BalanceBalance -1047 ml 127 ml -169 ml Results Result Diagram: 01/20/19 0454 01/20/19 0454 Medications Medications Current Medications IV Flush (NS 3 ml) 3 ml PER PROTOCOL IV ; Start 01/15/19 at 01:30 Nitroglycerin (Nitroglycerin (Sl Tab) 0.4 Mg) 1 tab Q5M PRN SL .CHEST PAIN Last administered on 01/18/19at 23:22; Admin Dose 1 TAB; Start 01/15/19 at 01:30 Docusate Sodium (Colace) 100 mg Q12H PRN PO .CONSTIPATION; Start 01/15/19 at 01:30 Bisacodyl (Dulcolax) 5 mg DAILY PRN PO .CONSTIPATION; Start 01/15/19 at 01:30 Bicalutamide (Casodex) 50 mg DAILY PO Last administered on 01/19/19at 11:27; Admin Dose 50 MG; Start 01/16/19 at 09:00 Tamsulosin HCl (Flomax) 0.4 mg BID PO Last administered on 01/19/19at 20:37; Admin Dose 0.4 MG; Start 01/15/19 at 21:00 Terazosin HCl (Hytrin) 5 mg HS PO Last administered on 01/15/19at 20:43; Admin Dose 5 MG; Start 01/15/19 at 21:00; Status Hold Amlodipine Besylate (Norvasc) 10 mg DAILY PO ; Start 01/16/19 at 09:00; Status Hold Atorvastatin Calcium (Lipitor) 40 mg HS PO Last administered on 01/19/19at 20:38; Admin Dose 40 MG; Start 01/15/19 at 21:00 Heparin Sodium (Porcine) (Heparin (1000 Units/ml)) 4,000 unit PER PROTOCOL PRN IV aPTT<47; Start 01/15/19 at 22:00 Heparin Sodium (Porcine) 250 ml @ 8 mls/hr PER PROTOCOL IV Last administered on 01/15/19at 22:10; Admin Dose 8 MLS/HR; Start 01/15/19 at 22:00 Nitroglycerin (Nitroglycerin 2% Oint) 0.5 inch Q8 TD Last administered on 01/16/19at 01:23; Admin Dose 0.5 INCH; Start 01/16/19 at 01:00; Status Hold Oxycodone/ Acetaminophen (Percocet (5/ 325)) 1 tab Q4H PRN PO PAIN; Start 01/16/19 at 11:00 Al Hydrox/Mg Hydrox/Simethicone (Mag-Al Plus) 30 ml Q4H PRN PO GASTROINTESTINAL UPSET; Start 01/16/19 at 11:00 Meropenem/Sodium Chloride 50 ml @ 100 mls/hr Q12 IVPB Last administered on 01/19/19at 20:37; Admin Dose 100 MLS/HR; Start 01/16/19 at 21:00 Vancomycin HCl (Vanco Iv Per Pharmacy) VANCOMYCIN PER PHARMACY PER PROTOCOL XX ; Start 01/16/19 at 11:30 Potassium Chloride 40 meq/ Calcium Chloride 1 gm/Dextrose/ Sodium Chloride 1,030 ml @ 60 mls/hr [id number] IV Last administered on 01/19/19at 20:45; Admin Dose 60 MLS/HR; Start 01/16/19 at 19:00 Oxycodone/ Acetaminophen (Percocet (5/ 325)) 1 tab Q3H PRN PO PAIN LEVEL 1-5; Start 01/16/19 at 17:30 Oxycodone/ Acetaminophen (Percocet (5/ 325)) 2 tab Q3H PRN PO PAIN LEVEL 6-10; Start 01/16/19 at 17:30 Ondansetron HCl (Zofran Inj) 4 mg Q6H PRN IV NAUSEA AND/OR VOMITING; Start 01/16/19 at 17:30 Famotidine (Pepcid) 20 mg BID PO Last administered on 01/19/19at 20:38; Admin Dose 20 MG; Start 01/16/19 at 21:00 Aspirin (Aspirin) 325 mg DAILY PO Last administered on 01/19/19 09:53; Admin Dose 325 MG; Start 01/17/19 at 09:00 Acetaminophen (Tylenol Tab) 650 mg Q3H PRN PO ELEVATED TEMPERATURE Last administered on 01/20/19 01:17; Admin Dose 650 MG; Start 01/16/19 at 17:30 Potassium Chloride 50 ml @ 50 mls/hr SEE DIRECTION PRN IVPB K+ LEVEL Last administered on 01/17/19 09:51; Admin Dose 50 MLS/HR; Start 01/16/19 at 17:30 Magnesium Sulfate/ Dextrose 100 ml @ 100 mls/hr PRN PRN IVPB PENDING LAB VALUE; Start 01/16/19 at 17:30 Nitroglycerin/ Dextrose 250 ml @ 1.5 mls/hr PER PROTOCOL IV ; Start 01/16/19 at 18:00 Dopamine HCl/ Dextrose 250 ml @ 5.138 mls/ hr PER PROTOCOL IV Last administered on 01/17/19 01:31; Admin Dose 3.853 MLS/HR; Start 01/16/19 at 18:00 Albumin Human 250 ml @ 250 mls/hr PRN PRN IV CVP <10 Last administered on 01/17/19 22:36; Admin Dose 250 MLS/HR; Start 01/17/19 at 01:00 Phenylephrine HCl 80 mg/Dextrose 250 ml @ 18.75 mls/ hr TITRATE IV Last admin istered on 01/17/19 18:46; Admin Dose 7.5 MLS/HR; Start 01/17/19 at 14:00 Morphine Sulfate (morphine) 2 mg Q4H PRN IV SEVERE PAIN LEVEL 7-10 Last administered on 01/19/19 08:17; Admin Dose 2 MG; Start 01/18/19 at 16:00 Miscellaneous Information 1 ea NOTE XX ; Start 01/18/19 at 17:00 Glucose (Glutose) 15 gm Q15M PRN PO DECREASED GLUCOSE; Start 01/18/19 at 17:00 Glucose (Glutose) 22.5 gm Q15M PRN PO DECREASED GLUCOSE; Start 01/18/19 at 17:00 Dextrose (D50w Syringe) 25 ml Q15M PRN IV DECREASED GLUCOSE; Start 01/18/19 at 17:00 Dextrose (D50w Syringe) 50 ml Q15M PRN IV DECREASED GLUCOSE; Start 01/18/19 at 17:00 Glucagon (Glucagen) 1 mg Q15M PRN IM DECREASED GLUCOSE; Start 01/18/19 at 17:00 Glucose (Glutose) 15 gm Q15M PRN BUCCAL DECREASED GLUCOSE; Start 01/18/19 at 17:00 Metoprolol Tartrate (Lopressor) 25 mg BID PO Last administered on 01/19/19at 20:39; Admin Dose 25 MG; Start 01/18/19 at 21:00 Lisinopril (Zestril) 10 mg BID PO Last administered on 01/19/19at 20:38; Admin Dose 10 MG; Start 01/18/19 at 21:00 Levalbuterol (Xopenex Neb) 0.63 mg Q4H RESP THERAPY PRN HHN SHORTNESS OF BREATH Last administered on 01/19/19at 03:03; Admin Dose 0.63 MG; Start 01/19/19 at 02:30 Ipratropium [place] (Atrovent 0.02% (Neb)) 0.5 mg Q4H RESP THERAPY PRN HHN SHORTNESS OF BREATH Last administered on 01/19/19at 03:03; Admin Dose 0.5 MG; Start 01/19/19 at 02:30 Enoxaparin Sodium (Lovenox) 40 mg DAILY SC Last administered on 01/19/19at 10:04; Admin Dose 40 MG; Start 01/19/19 at 09:00 Clopidogrel Bisulfate (plaVIX) 75 mg DAILY PO Last administered on 01/19/19at 09:54; Admin Dose 75 MG; Start 01/19/19 at 09:00 Diagnostic Test (Pha) (Accu-Chek) 1 ea 02 XX Last administered on 01/20/19at 02:39; Admin Dose 1 EA; Start 01/20/19 at 02:00 Insulin Aspart (Novolog Insulin Pen) NOVOLOG *MILD* ALGORITHM WITH MEALS BEDTIME SC ; Start 01/19/19 at 21:00 Vancomycin HCl 1.5 gm/Sodium Chloride 250 ml @ 83.333 mls/ hr Q24H IVPB ; Start 01/20/19 at 21:00 VTE Prophylaxis Risk score (from Nsg)>0 risk: 17 SCD applied (from Ns): Yes Lines/Catheters IV Catheter Type: Galvez in Place: No Assessment/Plan Hospital Course Subjective Patient alert and oriented, doing well Objective Physical exam General: Patient is laying in bed and answering questions appropriately Mentation: Patient is alert and oriented Head: Normocephalic atraumatic Eyes: EOMI, pupils reactive to light Neck: Supple, nontender, midline Respiratory: Coarse to auscultation bilaterally Cardiovascular: regular rate, no obvious murmurs Gastrointestinal: non-tender to palpation, bowel sounds heard. Neurological: Able to move all extremities Skin: No new skin lesions A/P Non-ST elevation ID, status post left heart cath and now multivessel intervention with open heart surgery done January 16, 2019, -Continue pressors and other medications per cardiology and cardiothoracic surgeon, titrate off Skinny-Synephrine as tolerated - ECHO from November 2018 shows an ejection fraction of roughly 35-40% with diastolic dysfunction. Sepsis secondary to UTI - UA results noted. Will await urine cultures for sensitivities - Continue current antibiotic - may be catheter related given had one in place for 2 months -ID consulted Bacteremia -Gram-negative david, possible UTI source, infectious disease consulted, continue IV antibiotic Urinary retention - will restart home medications and monitor output. -Some decrease per nursing staff and urine output however this may be due secondary to everything else that is going on with above CABG and hypotension versus actual retention, however will monitor closely, unlikely retention given Galvez catheter Pleural effusions -Pulmonology on board -Chest physiotherapy ordered H/o Prostate cancer - follows with Cindy Bender HTN - continue home medications CM - continue home medications 7. Disposition -More than 40 minutes of critical care time was spent on this encounter -Cardiothoracic and cardiology recommendations appreciated - PONCHO PEREYRA Jan 20, 2019 09:18
[2019-01-20] MEDS: ASPIRIN 325 MG TAB PO SCH (09:42)
[2019-01-20] MEDS: MEROPENEM 1 GM/50ML(PMX) 50 ML IVPB SCH (09:42)
[2019-01-20] MEDS: CLOPIDOGREL 75 MG TAB PO SCH (09:43)
[2019-01-20] MEDS: METOPROLOL 25 MG TAB PO SCH ×2 (09:43→21:29)
[2019-01-20] MEDS: LISINOPRIL 10 MG TAB PO SCH ×2 (09:43→21:30)
[2019-01-20] MEDS: FAMOTIDINE 20 MG TAB PO SCH ×2 (09:43→21:29)
[2019-01-20] MEDS: TAMSULOSIN (SR) 0.4 MG CAP PO SCH ×2 (09:43→21:29)
[2019-01-20] MEDS: BICALUTAMIDE 50 MG TAB PO SCH (09:45)
[2019-01-20] MEDS: ENOXAPARIN 40 MG/0.4 ML SYG SC SCH (10:10)
[2019-01-20] MEDS: morphine 2 MG INJ IV PRN ×2 (10:56→17:59)
--- NOTE | 2019-01-20 12:47 | CONS ---
Consult Date/Type/Reason Admit Date/Time Jan 15, 2019 at 01:24 Initial Consult Date 01/17/19 Type of Consult Pulmonary Requesting Provider: NEFTALI LYNN Date/Time of Note DATE: 01/20/19 TIME: 12:44 Subjective Patient stable this morning. No new events improved overall muscle strength following plasmapheresis. Objective Vital Signs Date Temp Pulse Resp B/P (MAP) Pulse Ox O2 O2 Flow FiO2 Time Delivery Rate 01/20/19 85 19 122/72 92 Room Air 11:00 (89) 01/20/19 99.4 08:00 01/20/19 3.0 06:00 01/18/19 30 13:05 Intake and Output 01/19/19 01/19/19 01/20/19 1515:00 23:00 07:00 IntakeIntake Total 590 ml 600 ml 610 ml OutputOutput Total 1637 ml 473 ml 764 ml BalanceBalance -1047 ml 127 ml -154 ml Exam GENERAL: Well-nourished well-developed gentleman on nasal cannula O2. VITAL SIGNS: per chart NECK: Supple. No JVD or lymphadenopathy. CARDIAC EXAM: S1, S2. No added sounds or murmurs. CHEST: Decreased air entry bilaterally ABDOMEN: Soft, nontender. No guarding or rebound. EXTREMITIES: No cyanosis, clubbing or edema. NEUROLOGIC: Generalized weakness. No focal deficits. Vent Setting Ventilator Support Mode: CPAP, PS Fraction of Inspired Oxygen pe: 30 Positive End Expiratory Pressu: 5.0 Results/Medications Result Diagram: 01/20/19 0454 01/20/19 0454 Results 24 hrs Laboratory Tests Test 01/19/19 12:59 01/19/19 17:41 01/19/19 20:03 01/19/19 20:37 Bedside Glucose 154 145 157 Vancomycin Level 10.5 Trough Test 01/20/19 04:54 01/20/19 08:07 White Blood Count 10.9 H Red Blood Count 2.95 L Hemoglobin 8.7 L Hematocrit 26.0 L Mean Corpuscular 88.1 Volume Mean Corpuscular 29.5 Hemoglobin Mean Corpuscular 33.5 Hemoglobin Concent Red Cell 14.7 H Distribution Width Platelet Count 162 # Mean Platelet Volume 11.0 H Immature 0.500 H Granulocytes % Neutrophils % 76.3 Lymphocytes % 12.5 L Monocytes % 9.0 Eosinophils % 1.5 Basophils % 0.2 Nucleated Red Blood 0.0 Cells % Immature 0.050 H Granulocytes # Neutrophils # 8.4 H Lymphocytes # 1.4 Monocytes # 1.0 H Eosinophils # 0.2 Basophils # 0.0 Nucleated Red Blood 0.0 Cells # Sodium Level 137 Potassium Level 3.8 Chloride Level 102 Carbon Dioxide Level 28 Anion Gap 7 Blood Urea Nitrogen 26 H Creatinine 0.79 Est Glomerular Filtrat Rate mL/min Glucose Level 139 Calcium Level 9.5 Phosphorus Level 3.5 Magnesium Level 2.0 Bedside Glucose 136 Medications Current Medications IV Flush (NS 3 ml) 3 ml PER PROTOCOL IV ; Start 01/15/19 at 01:30 Nitroglycerin (Nitroglycerin (Sl Tab) 0.4 Mg) 1 tab Q5M PRN SL .CHEST PAIN Last administered on 01/18/19at 23:22; Admin Dose 1 TAB; Start 01/15/19 at 01:30 Docusate Sodium (Colace) 100 mg Q12H PRN PO .CONSTIPATION; Start 01/15/19 at 01:30 Bisacodyl (Dulcolax) 5 mg DAILY PRN PO .CONSTIPATION; Start 01/15/19 at 01:30 Bicalutamide (Casodex) 50 mg DAILY PO Last administered on 01/20/19at 09:45; Admin Dose 50 MG; Start 01/16/19 at 09:00 Tamsulosin HCl (Flomax) 0.4 mg BID PO Last administered on 01/20/19 09:43; Admin Dose 0.4 MG; Start 01/15/19 at 21:00 Terazosin HCl (Hytrin) 5 mg HS PO Last administered on 01/15/19at 20:43; Admin Dose 5 MG; Start 01/15/19 at 21:00; Status Hold Amlodipine Besylate (Norvasc) 10 mg DAILY PO ; Start 01/16/19 at 09:00; Status Hold Atorvastatin Calcium (Lipitor) 40 mg HS PO Last administered on 01/19/19at 20:38; Admin Dose 40 MG; Start 01/15/19 at 21:00 Nitroglycerin (Nitroglycerin 2% Oint) 0.5 inch Q8 TD Last administered on 01/16/19at 01:23; Admin Dose 0.5 INCH; Start 01/16/19 at 01:00; Status Hold Oxycodone/ Acetaminophen (Percocet (5/ 325)) 1 tab Q4H PRN PO PAIN; Start 01/16/19 at 11:00 Al Hydrox/Mg Hydrox/Simethicone (Mag-Al Plus) 30 ml Q4H PRN PO GASTROINTESTINAL UPSET; Start 01/16/19 at 11:00 Meropenem/Sodium Chloride 50 ml @ 100 mls/hr Q12 IVPB Last administered on 01/20/19 09:42; Admin Dose 100 MLS/HR; Start 01/16/19 at 21:00 Vancomycin HCl (Vanco Iv Per Pharmacy) VANCOMYCIN PER PHARMACY PER PROTOCOL XX ; Start 01/16/19 at 11:30 Potassium Chloride 40 meq/ Calcium Chloride 1 gm/Dextrose/ Sodium Chloride 1,030 ml @ 60 mls/hr [id number] IV Last administered on 01/19/19 20:45; Admin Dose 60 MLS/HR; Start 01/16/19 at 19:00 Oxycodone/ Acetaminophen (Percocet (5/ 325)) 1 tab Q3H PRN PO PAIN LEVEL 1-5; Start 01/16/19 at 17:30 Oxycodone/ Acetaminophen (Percocet (5/ 325)) 2 tab Q3H PRN PO PAIN LEVEL 6-10; Start 01/16/19 at 17:30 Ondansetron HCl (Zofran Inj) 4 mg Q6H PRN IV NAUSEA AND/OR VOMITING; Start 01/16/19 at 17:30 Famotidine (Pepcid) 20 mg BID PO Last administered on 01/20/19 09:43; Admin Dose 20 MG; Start 01/16/19 at 21:00 Aspirin (Aspirin) 325 mg DAILY PO Last administered on 01/20/19 09:42; Admin Dose 325 MG; Start 01/17/19 at 09:00 Acetaminophen (Tylenol Tab) 650 mg Q3H PRN PO ELEVATED TEMPERATURE Last administered on 01/20/19 01:17; Admin Dose 650 MG; Start 01/16/19 at 17:30 Potassium Chloride 50 ml @ 50 mls/hr SEE DIRECTION PRN IVPB K+ LEVEL Last administered on 01/17/19 09:51; Admin Dose 50 MLS/HR; Start 01/16/19 at 17:30 Magnesium Sulfate/ Dextrose 100 ml @ 100 mls/hr PRN PRN IVPB PENDING LAB VALUE; Start 01/16/19 at 17:30 Nitroglycerin/ Dextrose 250 ml @ 1.5 mls/hr PER PROTOCOL IV ; Start 01/16/19 at 18:00 Dopamine HCl/ Dextrose 250 ml @ 5.138 mls/ hr PER PROTOCOL IV Last administered on 01/17/19at 01:31; Admin Dose 3.853 MLS/HR; Start 01/16/19 at 18:00 Albumin Human 250 ml @ 250 mls/hr PRN PRN IV CVP <10 Last administered on 01/17/19at 22:36; Admin Dose 250 MLS/HR; Start 01/17/19 at 01:00 Phenylephrine HCl 80 mg/Dextrose 250 ml @ 18.75 mls/ hr TITRATE IV Last administered on 01/17/19at 18:46; Admin Dose 7.5 MLS/HR; Start 01/17/19 at 14:00 Morphine Sulfate (morphine) 2 mg Q4H PRN IV SEVERE PAIN LEVEL 7-10 Last administered on 01/20/19at 10:56; Admin Dose 2 MG; Start 01/18/19 at 16:00 Miscellaneous Information 1 ea NOTE XX ; Start 01/18/19 at 17:00 Glucose (Glutose) 15 gm Q15M PRN PO DECREASED GLUCOSE; Start 01/18/19 at 17:00 Glucose (Glutose) 22.5 gm Q15M PRN PO DECREASED GLUCOSE; Start 01/18/19 at 17:00 Dextrose (D50w Syringe) 25 ml Q15M PRN IV DECREASED GLUCOSE; Start 01/18/19 at 17:00 Dextrose (D50w Syringe) 50 ml Q15M PRN IV DECREASED GLUCOSE; Start 01/18/19 at 17:00 Glucagon (Glucagen) 1 mg Q15M PRN IM DECREASED GLUCOSE; Start 01/18/19 at 17:00 Glucose (Glutose) 15 gm Q15M PRN BUCCAL DECREASED GLUCOSE; Start 01/18/19 at 17:00 Metoprolol Tartrate (Lopressor) 25 mg BID PO Last administered on 01/20/19at 09:43; Admin Dose 25 MG; Start 01/18/19 at 21:00 Lisinopril (Zestril) 10 mg BID PO Last administered on 01/20/19 09:43; Admin Dose 10 MG; Start 01/18/19 at 21:00 Levalbuterol (Xopenex Neb) 0.63 mg Q4H RESP THERAPY PRN HHN SHORTNESS OF BREATH Last administered on 01/19/19 03:03; Admin Dose 0.63 MG; Start 01/19/19 at 02:30 Ipratropium [place] (Atrovent 0.02% (Neb)) 0.5 mg Q4H RESP THERAPY PRN HHN SHORTNESS OF BREATH Last administered on 01/19/19 03:03; Admin Dose 0.5 MG; Start 01/19/19 at 02:30 Enoxaparin Sodium (Lovenox) 40 mg DAILY SC Last administered on 01/20/19 10:10; Admin Dose 40 MG; Start 01/19/19 at 09:00 Clopidogrel Bisulfate (plaVIX) 75 mg DAILY PO Last administered on 01/20/19 09:43; Admin Dose 75 MG; Start 01/19/19 at 09:00 Diagnostic Test (Pha) (Accu-Chek) 1 ea 02 XX Last administered on 01/20/19 02:39; Admin Dose 1 EA; Start 01/20/19 at 02:00 Insulin Aspart (Novolog Insulin Pen) NOVOLOG *MILD* ALGORITHM WITH MEALS BEDTIME SC ; Start 01/19/19 at 21:00 Vancomycin HCl 1.5 gm/Sodium Chloride 250 ml @ 83.333 mls/ hr Q24H IVPB ; Start 01/20/19 at 21:00 Assessment/Plan Hospital Course (Demo Recall) Assessment 1. Coronary artery disease status post acute coronary artery bypass graft surgery 2. Status post shock likely combination of cardiogenic and septic. 3. Chest CT demonstrates moderate right pleural effusion. Chest x-ray no significant changes 4. Improved acute hypoxemic respiratory failure 5. History of prostate cancer Plan 1. Incentive spirometry and chest PT 2. Continue diuretics if tolerated 3. Aspiration precautions 4. Chest tubes per cardiology 5. Physical therapy evaluation critical care time 40 minutes. Stable for transfer to telemetry LA GEE [facility] Jan 20, 2019 12:47
--- NOTE | 2019-01-20 12:58 | CONS ---
Assessment/Plan Assessment/Plan Hospital Course (Demo Recall) Patient is alert feels good looks comfortable no fevers overnight he is off pressors, central lines discontinued, T-max 99.60 current 99.4 WBC 10.9 platelets 162 neutrophils 76.3 BUN 26 creatinine 0.79 Microbiology: Blood culture on admission grew Citrobacter freundii, repeat blood cultures negative sputum culture pending urine culture negative Indwelling: chest tubes, Galvez, pacing wires Antimicrobials: Vancomycin, meropenem Physical examination: Well-developed well-nourished elderly man who is intubated sedated in no distress. Head atraumatic normocephalic sclera nonicteric. Buc abbie mucosa dry. Neck is supple chest rise symmetrical breath sounds diminished at bases. Heart: S1-S2. Abdomen distended, hypoactive bowel tones. Extremities mottled and cyanotic. Assessment: 1. S/p septic shock, possibly also cardiogenic 2. Gram-negative david bacteremia likely secondary to UTI 3. Pulmonary edema with superimposed pneumonia, possible aspiration 3. Acute AR status post emergency CABG 01/16/19 4. History of prostate cancer 5. History of hypertension 6. Acute anemia Plan: Continues to improve, change antibiotics to Invanz Consultation Date/Type/Reason Admit Date/Time Jan 15, 2019 at 01:24 Initial Consult Date 01/17/19 Type of Consult id Requesting Provider: NEFTALI LYNN Date/Time of Note DATE: 01/20/19 TIME: 12:57 Exam/Review of Systems Exam Vitals Vital Signs Date Temp Pulse Resp B/P (MAP) Pulse Ox O2 O2 Flow FiO2 Time Delivery Rate 01/20/19 85 19 122/72 92 Room Air 11:00 (89) 01/20/19 99.4 08:00 01/20/19 3.0 06:00 01/18/19 30 13:05 Intake and Output 01/19/19 01/19/19 01/20/19 1515:00 23:00 07:00 IntakeIntake Total 590 ml 600 ml 610 ml OutputOutput Total 1637 ml 473 ml 764 ml BalanceBalance -1047 ml 127 ml -154 ml Results Result Diagram: 01/20/19 0454 01/20/19 0454 Results 24hrs Laboratory Tests Test 01/19/19 12:59 01/19/19 17:41 01/19/19 20:03 01/19/19 20:37 Bedside Glucose 154 145 157 Vancomycin Level 10.5 Trough Test 01/20/19 04:54 01/20/19 08:07 White Blood Count 10.9 H Red Blood Count 2.95 L Hemoglobin 8.7 L Hematocrit 26.0 L Mean Corpuscular 88.1 Volume Mean Corpuscular 29.5 Hemoglobin Mean Corpuscular 33.5 Hemoglobin Concent Red Cell 14.7 H Distribution Width Platelet Count 162 # Mean Platelet Volume 11.0 H Immature 0.500 H Granulocytes % Neutrophils % 76.3 Lymphocytes % 12.5 L Monocytes % 9.0 Eosinophils % 1.5 Basophils % 0.2 Nucleated Red Blood 0.0 Cells % Immature 0.050 H Granulocytes # Neutrophils # 8.4 H Lymphocytes # 1.4 Monocytes # 1.0 H Eosinophils # 0.2 Basophils # 0.0 Nucleated Red Blood 0.0 Cells # Sodium Level 137 Potassium Level 3.8 Chloride Level 102 Carbon Dioxide Level 28 Anion Gap 7 Blood Urea Nitrogen 26 H Creatinine 0.79 Est Glomerular Filtrat Rate mL/min Glucose Level 139 Calcium Level 9.5 Phosphorus Level 3.5 Magnesium Level 2.0 Bedside Glucose 136 Medications Medication Current Medications IV Flush (NS 3 ml) 3 ml PER PROTOCOL IV ; Start 01/15/19 at 01:30 Nitroglycerin (Nitroglycerin (Sl Tab) 0.4 Mg) 1 tab Q5M PRN SL .CHEST PAIN Last administered on 01/18/19at 23:22; Admin Dose 1 TAB; Start 01/15/19 at 01:30 Docusate Sodium (Colace) 100 mg Q12H PRN PO .CONSTIPATION; Start 01/15/19 at 01:30 Bisacodyl (Dulcolax) 5 mg DAILY PRN PO .CONSTIPATION; Start 01/15/19 at 01:30 Bicalutamide (Casodex) 50 mg DAILY PO Last administered on 01/20/19at 09:45; Admin Dose 50 MG; Start 01/16/19 at 09:00 Tamsulosin HCl (Flomax) 0.4 mg BID PO Last administered on 01/20/19 09:43; Admin Dose 0.4 MG; Start 01/15/19 at 21:00 Terazosin HCl (Hytrin) 5 mg HS PO Last administered on 01/15/19at 20:43; Admin Dose 5 MG; Start 01/15/19 at 21:00; Status Hold Amlodipine Besylate (Norvasc) 10 mg DAILY PO ; Start 01/16/19 at 09:00; Status Hold Atorvastatin Calcium (Lipitor) 40 mg HS PO Last administered on 01/19/19at 20:38; Admin Dose 40 MG; Start 01/15/19 at 21:00 Nitroglycerin (Nitroglycerin 2% Oint) 0.5 inch Q8 TD Last administered on 01/16/19at 01:23; Admin Dose 0.5 INCH; Start 01/16/19 at 01:00; Status Hold Oxycodone/ Acetaminophen (Percocet (5/ 325)) 1 tab Q4H PRN PO PAIN; Start 01/16/19 at 11:00 Al Hydrox/Mg Hydrox/Simethicone (Mag-Al Plus) 30 ml Q4H PRN PO GASTROINTESTINAL UPSET; Start 01/16/19 at 11:00 Meropenem/Sodium Chloride 50 ml @ 100 mls/hr Q12 IVPB Last administered on 01/09 11/29at 09:42; Admin Dose 100 MLS/HR; Start 01/16/19 at 21:00 Vancomycin HCl (Vanco Iv Per Pharmacy) VANCOMYCIN PER PHARMACY PER PROTOCOL XX ; Start 01/16/19 at 11:30 Potassium Chloride 40 meq/ Calcium Chloride 1 gm/Dextrose/ Sodium Chloride 1,030 ml @ 60 mls/hr [id number] IV Last administered on 01/19/19at 20:45; Admin Dose 60 MLS/HR; Start 01/16/19 at 19:00 Oxycodone/ Acetaminophen (Percocet (5/ 325)) 1 tab Q3H PRN PO PAIN LEVEL 1-5; Start 01/16/19 at 17:30 Oxycodone/ Acetaminophen (Percocet (5/ 325)) 2 tab Q3H PRN PO PAIN LEVEL 6-10; Start 01/16/19 at 17:30 Ondansetron HCl (Zofran Inj) 4 mg Q6H PRN IV NAUSEA AND/OR VOMITING; Start 01/16/19 at 17:30 Famotidine (Pepcid) 20 mg BID PO Last administered on 01/20/19at 09:43; Admin Dose 20 MG; Start 01/16/19 at 21:00 Aspirin (Aspirin) 325 mg DAILY PO Last administered on 01/20/19 09:42; Admin Dose 325 MG; Start 01/17/19 at 09:00 Acetaminophen (Tylenol Tab) 650 mg Q3H PRN PO ELEVATED TEMPERATURE Last administered on 01/20/19 01:17; Admin Dose 650 MG; Start 01/16/19 at 17:30 Potassium Chloride 50 ml @ 50 mls/hr SEE DIRECTION PRN IVPB K+ LEVEL Last administered on 01/17/19 09:51; Admin Dose 50 MLS/HR; Start 01/16/19 at 17:30 Magnesium Sulfate/ Dextrose 100 ml @ 100 mls/hr PRN PRN IVPB PENDING LAB VALUE; Start 01/16/19 at 17:30 Nitroglycerin/ Dextrose 250 ml @ 1.5 mls/hr PER PROTOCOL IV ; Start 01/16/19 at 18:00 Dopamine HCl/ Dextrose 250 ml @ 5.138 mls/ hr PER PROTOCOL IV Last administered on 01/17/19 01:31; Admin Dose 3.853 MLS/HR; Start 01/16/19 at 18:00 Albumin Human 250 ml @ 250 mls/hr PRN PRN IV CVP <10 Last administered on 01/17at 22:36; Admin Dose 250 MLS/HR; Start 01/17/19 at 01:00 Phenylephrine HCl 80 mg/Dextrose 250 ml @ 18.75 mls/ hr TITRATE IV Last administered on 01/17/19at 18:46; Admin Dose 7.5 MLS/HR; Start 01/17/19 at 14:00 Morphine Sulfate (morphine) 2 mg Q4H PRN IV SEVERE PAIN LEVEL 7-10 Last administered on 01/20/19at 10:56; Admin Dose 2 MG; Start 01/18/19 at 16:00 Miscellaneous Information 1 ea NOTE XX ; Start 01/18/19 at 17:00 Glucose (Glutose) 15 gm Q15M PRN PO DECREASED GLUCOSE; Start 01/18/19 at 17:00 Glucose (Glutose) 22.5 gm Q15M PRN PO DECREASED GLUCOSE; Start 01/18/19 at 17:00 Dextrose (D50w Syringe) 25 ml Q15M PRN IV DECREASED GLUCOSE; Start 01/18/19 at 17:00 Dextrose (D50w Syringe) 50 ml Q15M PRN IV DECREASED GLUCOSE; Start 01/18/19 at 17:00 Glucagon (Glucagen) 1 mg Q15M PRN IM DECREASED GLUCOSE; Start 01/18/19 at 17:00 Glucose (Glutose) 15 gm Q15M PRN BUCCAL DECREASED GLUCOSE; Start 01/18/19 at 17:00 Metoprolol Tartrate (Lopressor) 25 mg BID PO Last administered on 01/20/19at 0 9:43; Admin Dose 25 MG; Start 01/18/19 at 21:00 Lisinopril (Zestril) 10 mg BID PO Last administered on 01/20/19 09:43; Admin Dose 10 MG; Start 01/18/19 at 21:00 Levalbuterol (Xopenex Neb) 0.63 mg Q4H RESP THERAPY PRN HHN SHORTNESS OF BREATH Last administered on 01/19/19 03:03; Admin Dose 0.63 MG; Start 01/19/19 at 02:30 Ipratropium [place] (Atrovent 0.02% (Neb)) 0.5 mg Q4H RESP THERAPY PRN HHN SHORTNESS OF BREATH Last administered on 01/19/19 03:03; Admin Dose 0.5 MG; Start 01/19/19 at 02:30 Enoxaparin Sodium (Lovenox) 40 mg DAILY SC Last administered on 01/20/19 10:10; Admin Dose 40 MG; Start 01/19/19 at 09:00 Clopidogrel Bisulfate (plaVIX) 75 mg DAILY PO Last administered on 01/20/19 09:43; Admin Dose 75 MG; Start 01/19/19 at 09:00 Diagnostic Test (Pha) (Accu-Chek) 1 ea 02 XX Last administered on 01/20/19at 02:39; Admin Dose 1 EA; Start 01/20/19 at 02:00 Insulin Aspart (Novolog Insulin Pen) NOVOLOG *MILD* ALGORITHM WITH MEALS BEDTIME SC ; Start 01/19/19 at 21:00 Vancomycin HCl 1.5 gm/Sodium Chloride 250 ml @ 83.333 mls/ hr Q24H IVPB ; Start 01/20/19 at 21:00 NORMA PRINCE NP Jan 20, 2019 12:58
--- NOTE | 2019-01-20 16:20 | PN ---
Date/Time of Note Date/Time of Note DATE: 01/20/19 TIME: 16:19 Assessment/Plan Lines/Catheters IV Catheter Type (from Nrs): Galvez in Place (from Nrsg): No Assessment/Plan Assessment/Plan doing better, chest tube still draining. ct chest shows moderate effusion. lasix iv started. may need thoracentesis. ok to transfer to tele Exam/Review of Systems Vital Signs Vitals Vital Signs Date Temp Pulse Resp B/P (MAP) Pulse Ox O2 O2 Flow FiO2 Time Delivery Rate 01/20/19 79 12:00 01/20/19 122/72 92 Room Air 11:00 (89) 01/20/19 99.4 08:00 01/20/19 3.0 06:00 01/18/19 30 13:05 Intake and Output 01/19/19 01/19/19 01/20/19 1515:00 23:00 07:00 IntakeIntake Total 590 ml 600 ml 610 ml OutputOutput Total 1637 ml 473 ml 764 ml BalanceBalance -1047 ml 127 ml -154 ml Results Result Diagram: 01/20/19 0454 01/20/19 0454 SHARON MONTGOMERY MD Jan 20, 2019 16:20
[2019-01-20] MEDS: FUROSEMIDE 40 MG INJ IV SCH (16:23)
[2019-01-20] MEDS: ERTAPENEM SODIUM 1 GM in SOD CHLORIDE 0.9% 100 ML IVPB SCH (16:23)
--- NOTE | 2019-01-20 16:31 | CONS ---
Assessment/Plan Assessment/Plan Hospital Course (Demo Recall) IMPRESSION: 1. Non-ST myocardial infarction with up trending cardiac enzymes.-overnight and then this am patient with uptrending cardiac enzymes. Now s/p LHC with mutivessel CAD and enmergent echo with decreased EF 30-35%. Now post-op day #2 s/p cabg x 4(ENRIQUEZ-LAD, SVG-PDA, SVG-OM, SVG-Ramus) 2. Chest pain secondary to #1.-ongoing 3. Abnormal electrocardiogram with anterolateral deep ST depressions. 4. Hypertension-currently borderline hypotension 5. Dyslipidemia. 6. Benign prostatic hypertrophy. 7. Prostate carcinoma. 8. History of hematuria recently. 9. CHF-systolic acute Recc: -ICU -s/p extubation -Continue asa/statin and now started on plavix -Continue BB/ACEI -follow volume status and start gentle lasix diuresis -Continue abx's and f/u cx data -Follow drain input Consultation Date/Type/Reason Admit Date/Time Jan 15, 2019 at 01:24 Initial Consult Date 01/15/19 Type of Consult Cardiology Reason for Consultation Acute IA Requesting Provider: NEFTALI LYNN Date/Time of Note DATE: 01/20/19 TIME: 16:26 Exam/Review of Systems Vital Signs Vitals Vital Signs Date Temp Pulse Resp B/P (MAP) Pulse Ox O2 O2 Flow FiO2 Time Delivery Rate 01/20/19 79 12:00 01/20/19 19 122/72 92 Room Air 11:00 (89) 01/20/19 99.4 08:00 01/20/19 3.0 06:00 01/18/19 30 13:05 Intake and Output 01/19/19 01/19/19 01/20/19 1515:00 23:00 07:00 IntakeIntake Total 590 ml 600 ml 610 ml OutputOutput Total 1637 ml 473 ml 764 ml BalanceBalance -1047 ml 127 ml -154 ml Exam Exam Review of Systems: CONSTITUTIONAL: No fevers, chills. PULMONARY: No sob CARDIOVASCULAR: No chest pain/palpitations GASTROINTESTINAL: No nausea/vomiting. GENITOURINARY: No hematuria/dysuria. MUSCULOSKELETAL: No myagias/arthalgias. PSYCHIATRIC: The patient denies depression. NEUROLOGIC: No weakness Constitutional: alert, oriented Psych: no complaints Head: normocephalic ENMT: mucosa pink and moist Neck: supple, jvd (9 cm water) Respiratory: diminished breath sounds (at bases/B) Cardiovascular: regular rate and rhythm Gastrointestinal: soft, non-tender Musculoskeletal: muscle tone Extremities: pitting pedal edema (trace/B) Neurological: other (No focal deficits) Labs Result Diagram: 01/20/19 0454 01/20/19 0454 Results 24hrs Laboratory Tests Test 01/19/19 17:41 01/19/19 20:03 01/19/19 20:37 01/20/19 04:54 Bedside Glucose 145 157 Vancomycin Level 10.5 Trough White Blood Count 10.9 H Red Blood Count 2.95 L Hemoglobin 8.7 L Hematocrit 26.0 L Mean Corpuscular 88.1 Volume Mean Corpuscular 29.5 Hemoglobin Mean Corpuscular 33.5 Hemoglobin Concent Red Cell 14.7 H Distribution Width Platelet Count 162 # Mean Platelet Volume 11.0 H Immature 0.500 H Granulocytes % Neutrophils % 76.3 Lymphocytes % 12.5 L Monocytes % 9.0 Eosinophils % 1.5 Basophils % 0.2 Nucleated Red Blood 0.0 Cells % Immature 0.050 H Granulocytes # Neutrophils # 8.4 H Lymphocytes # 1.4 Monocytes # 1.0 H Eosinophils # 0.2 Basophils # 0.0 Nucleated Red Blood 0.0 Cells # Sodium Level 137 Potassium Level 3.8 Chloride Level 102 Carbon Dioxide Level 28 Anion Gap 7 Blood Urea Nitrogen 26 H Creatinine 0.79 Est Glomerular Filtrat Rate mL/min Glucose Level 139 Calcium Level 9.5 Phosphorus Level 3.5 Magnesium Level 2.0 Test 01/20/19 08:07 01/20/19 13:28 Bedside Glucose 136 134 Medications Medications Current Medications IV Flush (NS 3 ml) 3 ml PER PROTOCOL IV ; Start 01/15/19 at 01:30 Nitroglycerin (Nitroglycerin (Sl Tab) 0.4 Mg) 1 tab Q5M PRN SL .CHEST PAIN Last administered on 01/18/19at 23:22; Admin Dose 1 TAB; Start 01/15/19 at 01:30 Docusate Sodium (Colace) 100 mg Q12H PRN PO .CONSTIPATION; Start 01/15/19 at 01:30 Bisacodyl (Dulcolax) 5 mg DAILY PRN PO .CONSTIPATION; Start 01/15/19 at 01:30 Bicalutamide (Casodex) 50 mg DAILY PO Last administered on 01/20/19at 09:45; Admin Dose 50 MG; Start 01/16/19 at 09:00 Tamsulosin HCl (Flomax) 0.4 mg BID PO Last administered on 01/20/19 09:43; Admin Dose 0.4 MG; Start 01/15/19 at 21:00 Terazosin HCl (Hytrin) 5 mg HS PO Last administered on 01/15/19 20:43; Admin Dose 5 MG; Start 01/15/19 at 21:00; Status Hold Amlodipine Besylate (Norvasc) 10 mg DAILY PO ; Start 01/16/19 at 09:00; Status Hold Atorvastatin Calcium (Lipitor) 40 mg HS PO Last administered on 01/19/19at 20:38; Admin Dose 40 MG; Start 01/15/19 at 21:00 Nitroglycerin (Nitroglycerin 2% Oint) 0.5 inch Q8 TD Last administered on 01/16/19at 01:23; Admin Dose 0.5 INCH; Start 01/16/19 at 01:00; Status Hold Oxycodone/ Acetaminophen (Percocet (5/ 325)) 1 tab Q4H PRN PO PAIN; Start 01/16/19 at 11:00 Al Hydrox/Mg Hydrox/Simethicone (Mag-Al Plus) 30 ml Q4H PRN PO GASTROINTESTINAL UPSET; Start 01/16/19 at 11:00 Oxycodone/ Acetaminophen (Percocet (5/ 325)) 1 tab Q3H PRN PO PAIN LEVEL 1-5; Start 01/16/19 at 17:30 Oxycodone/ Acetaminophen (Percocet (5/ 325)) 2 tab Q3H PRN PO PAIN LEVEL 6-10; Start 01/16/19 at 17:30 Ondansetron HCl (Zofran Inj) 4 mg Q6H PRN IV NAUSEA AND/OR VOMITING; Start 01/16/19 at 17:30 Famotidine (Pepcid) 20 mg BID PO Last administered on 01/20/19 09:43; Admin Dose 20 MG; Start 01/16/19 at 21:00 Aspirin (Aspirin) 325 mg DAILY PO Last administered on 01/20/19 09:42; Admin Dose 325 MG; Start 01/17/19 at 09:00 Acetaminophen (Tylenol Tab) 650 mg Q3H PRN PO ELEVATED TEMPERATURE Last administered on 01/20/19 01:17; Admin Dose 650 MG; Start 01/16/19 at 17:30 Potassium Chloride 50 ml @ 50 mls/hr SEE DIRECTION PRN IVPB K+ LEVEL Last administered on 01/17/19 09:51; Admin Dose 50 MLS/HR; Start 01/16/19 at 17:30 Magnesium Sulfate/ Dextrose 100 ml @ 100 mls/hr PRN PRN IVPB PENDING LAB VALUE; Start 01/16/19 at 17:30 Albumin Human 250 ml @ 250 mls/hr PRN PRN IV CVP <10 Last administered on 01/17/19 22:36; Admin Dose 250 MLS/HR; Start 01/17/19 at 01:00 Morphine Sulfate (morphine) 2 mg Q4H PRN IV SEVERE PAIN LEVEL 7-10 Last administered on 01/20/19 10:56; Admin Dose 2 MG; Start 01/18/19 at 16:00 Miscellaneous Information 1 ea NOTE XX ; Start 01/18/19 at 17:00 Glucose (Glutose) 15 gm Q15M PRN PO DECREASED GLUCOSE; Start 01/18/19 at 17:00 Glucose (Glutose) 22.5 gm Q15M PRN PO DECREASED GLUCOSE; Start 01/18/19 at 17:00 Dextrose (D50w Syringe) 25 ml Q15M PRN IV DECREASED GLUCOSE; Start 01/18/19 at 17:00 Dextrose (D50w Syringe) 50 ml Q15M PRN IV DECREASED GLUCOSE; Start 01/18/19 at 17:00 Glucagon (Glucagen) 1 mg Q15M PRN IM DECREASED GLUCOSE; Start 01/18/19 at 17:00 Glucose (Glutose) 15 gm Q15M PRN BUCCAL DECREASED GLUCOSE; Start 01/18/19 at 17:00 Metoprolol Tartrate (Lopressor) 25 mg BID PO Last administered on 01/20/19 09:43; Admin Dose 25 MG; Start 01/18/19 at 21:00 Lisinopril (Zestril) 10 mg BID PO Last administered on 01/20/19 09:43; Admin Dose 10 MG; Start 01/18/19 at 21:00 Levalbuterol (Xopenex Neb) 0.63 mg Q4H RESP THERAPY PRN HHN SHORTNESS OF BREATH Last administered on 01/19/19 03:03; Admin Dose 0.63 MG; Start 01/19/19 at 02:30 Ipratropium [place] (Atrovent 0.02% (Neb)) 0.5 mg Q4H RESP THERAPY PRN HHN SHORTNESS OF BREATH Last administered on 01/19/19 03:03; Admin Dose 0.5 MG; Start 01/19/19 at 02:30 Enoxaparin Sodium (Lovenox) 40 mg DAILY SC Last administered on 01/20/19 10:10; Admin Dose 40 MG; Start 01/19/19 at 09:00 Clopidogrel Bisulfate (plaVIX) 75 mg DAILY PO Last administered on 01/20/19 09:43; Admin Dose 75 MG; Start 01/19/19 at 09:00 Diagnostic Test (Pha) (Accu-Chek) 1 ea 02 XX Last administered on 01/20/19 02:39; Admin Dose 1 EA; Start 01/20/19 at 02:00 Insulin Aspart (Novolog Insulin Pen) NOVOLOG *MILD* ALGORITHM WITH MEALS BEDTIME SC ; Start 01/19/19 at 21:00 Ertapenem 1 gm/ Sodium Chloride 100 ml @ 200 mls/hr Q24H IVPB Last administered on 01/20/19 16:23; Admin Dose 200 MLS/HR; Start 01/20/19 at 14:30 Furosemide (Lasix) 40 mg DAILY IV Last administered on 01/20/19 16:23; Admin Dose 40 MG; Start 01/20/19 at 15:30 NEFTALI LYNN Jan 20, 2019 16:31
[2019-01-20] MEDS ORDERED: VANCOMYCIN HCL 1.5 GM in SOD CHLORIDE 0.9% 250 ML IVPB SCH (21:00)
[2019-01-20] MEDS: ATORVASTATIN 40 MG TAB PO SCH (21:29)
[2019-01-21] VITALS (12 sets, daily range): BP systolic 101–127; BP diastolic 54–64; PULSE 76–88; RESP 14–20
[2019-01-21] MEDS: ACCU-CHEK XX SCH (02:00)
[2019-01-21] MEDS: ASPIRIN 325 MG TAB PO SCH (08:18)
[2019-01-21] MEDS: FAMOTIDINE 20 MG TAB PO SCH ×2 (08:18→22:03)
[2019-01-21] MEDS: TAMSULOSIN (SR) 0.4 MG CAP PO SCH ×2 (08:18→22:01)
[2019-01-21] MEDS: METOPROLOL 25 MG TAB PO SCH ×2 (08:18→22:01)
[2019-01-21] MEDS: CLOPIDOGREL 75 MG TAB PO SCH (08:18)
[2019-01-21] MEDS: LISINOPRIL 10 MG TAB PO SCH ×2 (08:19→23:00)
[2019-01-21] MEDS: FUROSEMIDE 40 MG INJ IV SCH (08:19)
[2019-01-21] MEDS: ENOXAPARIN 40 MG/0.4 ML SYG SC SCH (08:51)
[2019-01-21] MEDS: INSULIN ASPART [NOVOLOG] 3 ML PEN SC SCH ×4 (08:51→21:00)
--- NOTE | 2019-01-21 09:17 | PN ---
Date/Time of Note Date/Time of Note DATE: 01/21/19 TIME: 09:16 Assessment/Plan Lines/Catheters IV Catheter Type (from Nrs): Peripheral IV Ricci in Place (from Nrs): Yes Assessment/Plan Assessment/Plan doing well, NSR. remove chest tubes, wires and ricci. check cxr. may need right thoracentesis. Exam/Review of Systems Vital Signs Vitals Vital Signs Date Temp Pulse Resp B/P (MAP) Pulse Ox O2 O2 Flow FiO2 Time Delivery Rate 01/21/19 Nasal 2.0 08:34 Cannula 01/21/19 84 08:20 01/21/19 97.9 18 111/56 95 07:26 (74) 01/18/19 30 13:05 Intake and Output 01/20/19 01/20/19 01/21/19 1515:00 23:00 07:00 IntakeIntake Total 590 ml 300 ml 150 ml OutputOutput Total 341 ml 2409 ml 341 ml BalanceBalance 249 ml -2109 ml -191 ml Results Result Diagram: 01/21/19 0610 01/21/19 0610 SHARON MONTGOMERY MD Jan 21, 2019 09:17
[2019-01-21] MEDS: BICALUTAMIDE 50 MG TAB PO SCH (10:56)
--- NOTE | 2019-01-21 11:24 | CONS ---
Consult Date/Type/Reason Admit Date/Time Jan 15, 2019 at 01:24 Initial Consult Date 01/17/19 Type of Consult Pulmonary Requesting Provider: NEFTALI LYNN Date/Time of Note DATE: 01/21/19 TIME: 11:23 Subjective Patient stable this morning on nasal cannula no respiratory distress. Chest tube removed by thoracic surgery. Objective Vital Signs Date Temp Pulse Resp B/P (MAP) Pulse Ox O2 O2 Flow FiO2 Time Delivery Rate 01/21/19 Nasal 2.0 08:34 Cannula 01/21/19 84 08:20 01/21/19 97.9 18 111/56 95 07:26 (74) 01/18/19 30 13:05 Intake and Output 01/20/19 01/20/19 01/21/19 1515:00 23:00 07:00 IntakeIntake Total 590 ml 300 ml 150 ml OutputOutput Total 341 ml 2409 ml 341 ml BalanceBalance 249 ml -2109 ml -191 ml Exam GENERAL: Well-nourished well-developed gentleman comfortable at rest VITAL SIGNS: per chart NECK: Supple. No JVD or lymphadenopathy. CARDIAC EXAM: S1, S2. No added sounds or murmurs. CHEST: Diminished air entry at bases ABDOMEN: Soft, nontender. No guarding or rebound. EXTREMITIES: No cyanosis, clubbing or edema. NEUROLOGIC: Generalized weakness. No focal deficits. Vent Setting Ventilator Support Mode: CPAP, PS Fraction of Inspired Oxygen pe: 30 Positive End Expiratory Pressu: 5.0 Results/Medications Result Diagram: 01/21/19 0610 01/21/19 0610 Results 24 hrs Laboratory Tests Test 01/20/19 13:28 01/20/19 21:31 01/21/19 06:10 01/21/19 08:15 Bedside Glucose 134 125 143 White Blood Count 9.6 Red Blood Count 3.03 L Hemoglobin 9.0 L Hematocrit 27.0 L Mean Corpuscular 89.1 Volume Mean Corpuscular 29.7 Hemoglobin Mean Corpuscular 33.3 Hemoglobin Concent Red Cell 14.9 H Distribution Width Platelet Count 219 # Mean Platelet Volume 10.5 H Immature 0.700 H Granulocytes % Neutrophils % 69.1 Lymphocytes % 14.6 L Monocytes % 11.7 H Eosinophils % 3.6 Basophils % 0.3 Nucleated Red Blood 0.0 Cells % Immature 0.070 H Granulocytes # Neutrophils # 6.6 Lymphocytes # 1.4 Monocytes # 1.1 H Eosinophils # 0.4 Basophils # 0.0 Nucleated Red Blood 0.0 Cells # Sodium Level 138 Potassium Level 3.5 Chloride Level 97 Carbon Dioxide Level 32 H Anion Gap 9 Blood Urea Nitrogen 33 H Creatinine 0.85 Est Glomerular Filtrat Rate mL/min Glucose Level 113 Calcium Level 8.9 Phosphorus Level 4.0 Magnesium Level 2.0 Medications Current Medications IV Flush (NS 3 ml) 3 ml PER PROTOCOL IV ; Start 01/15/19 at 01:30 Nitroglycerin (Nitroglycerin (Sl Tab) 0.4 Mg) 1 tab Q5M PRN SL .CHEST PAIN Last administered on 01/18/19at 23:22; Admin Dose 1 TAB; Start 01/15/19 at 01:30 Docusate Sodium (Colace) 100 mg Q12H PRN PO .CONSTIPATION; Start 01/15/19 at 01:30 Bisacodyl (Dulcolax) 5 mg DAILY PRN PO .CONSTIPATION; Start 01/15/19 at 01:30 Bicalutamide (Casodex) 50 mg DAILY PO Last administered on 01/21/19at 10:56; Admin Dose 50 MG; Start 01/16/19 at 09:00 Tamsulosin HCl (Flomax) 0.4 mg BID PO Last administered on 01/21/19at 08:18; Admin Dose 0.4 MG; Start 01/15/19 at 21:00 Terazosin HCl (Hytrin) 5 mg HS PO Last administered on 01/15/19at 20:43; Admin Dose 5 MG; Start 01/15/19 at 21:00; Status Hold Amlodipine Besylate (Norvasc) 10 mg DAILY PO ; Start 01/16/19 at 09:00; Status Hold Atorvastatin Calcium (Lipitor) 40 mg HS PO Last administered on 01/20/19at 21:29; Admin Dose 40 MG; Start 01/15/19 at 21:00 Nitroglycerin (Nitroglycerin 2% Oint) 0.5 inch Q8 TD Last administered on 01/16/19at 01:23; Admin Dose 0.5 INCH; Start 01/16/19 at 01:00; Status Hold Oxycodone/ Acetaminophen (Percocet (5/ 325)) 1 tab Q4H PRN PO PAIN; Start 01/16/19 at 11:00 Al Hydrox/Mg Hydrox/Simethicone (Mag-Al Plus) 30 ml Q4H PRN PO GASTROINTESTINAL UPSET; Start 01/16/19 at 11:00 Oxycodone/ Acetaminophen (Percocet (5/ 325)) 1 tab Q3H PRN PO PAIN LEVEL 1-5; Start 01/16/19 at 17:30 Oxycodone/ Acetaminophen (Percocet (5/ 325)) 2 tab Q3H PRN PO PAIN LEVEL 6-10 Last administered on 01/21/19at 00:49; Admin Dose 2 TAB; Start 01/16/19 at 17:30 Ondansetron HCl (Zofran Inj) 4 mg Q6H PRN IV NAUSEA AND/OR VOMITING; Start 01/16/19 at 17:30 Famotidine (Pepcid) 20 mg BID PO Last administered on 01/21/19at 08:18; Admin Dose 20 MG; Start 01/16/19 at 21:00 Aspirin (Aspirin) 325 mg DAILY PO Last administered on 01/21/19at 08:18; Admin Dose 325 MG; Start 01/17/19 at 09:00 Acetaminophen (Tylenol Tab) 650 mg Q3H PRN PO ELEVATED TEMPERATURE Last administered on 01/20/19at 01:17; Admin Dose 650 MG; Start 01/16/19 at 17:30 Potassium Chloride 50 ml @ 50 mls/hr SEE DIRECTION PRN IVPB K+ LEVEL Last administered on 01/17/19at 09:51; Admin Dose 50 MLS/HR; Start 01/16/19 at 17:30 Magnesium Sulfate/ Dextrose 100 ml @ 100 mls/hr PRN PRN IVPB PENDING LAB VALUE; Start 01/16/19 at 17:30 Albumin Human 250 ml @ 250 mls/hr PRN PRN IV CVP <10 Last administered on 01/17/19at 22:36; Admin Dose 250 MLS/HR; Start 01/17/19 at 01:00 Morphine Sulfate (morphine) 2 mg Q4H PRN IV SEVERE PAIN LEVEL 7-10 Last administered on 01/20/19at 17:59; Admin Dose 2 MG; Start 01/18/19 at 16:00 Miscellaneous Information 1 ea NOTE XX ; Start 01/18/19 at 17:00 Glucose (Glutose) 15 gm Q15M PRN PO DECREASED GLUCOSE; Start 01/18/19 at 17:00 Glucose (Glutose) 22.5 gm Q15M PRN PO DECREASED GLUCOSE; Start 01/18/19 at 17:00 Dextrose (D50w Syringe) 25 ml Q15M PRN IV DECREASED GLUCOSE; Start 01/18/19 at 17:00 Dextrose (D50w Syringe) 50 ml Q15M PRN IV DECREASED GLUCOSE; Start 01/18/19 at 17:00 Glucagon (Glucagen) 1 mg Q15M PRN IM DECREASED GLUCOSE; Start 01/18/19 at 17:00 Glucose (Glutose) 15 gm Q15M PRN BUCCAL DECREASED GLUCOSE; Start 01/18/19 at 17:00 Metoprolol Tartrate (Lopressor) 25 mg BID PO Last administered on 01/21/19at 08:18; Admin Dose 25 MG; Start 01/18/19 at 21:00 Lisinopril (Zestril) 10 mg BID PO Last administered on 01/21/19at 08:19; Admin Dose 10 MG; Start 01/18/19 at 21:00 Levalbuterol (Xopenex Neb) 0.63 mg Q4H RESP THERAPY PRN HHN SHORTNESS OF BREATH Last administered on 01/19/19at 03:03; Admin Dose 0.63 MG; Start 01/19/19 at 02:30 Ipratropium [place] (Atrovent 0.02% (Neb)) 0.5 mg Q4H RESP THERAPY PRN HHN SHORTNESS OF BREATH Last administered on 01/19/19at 03:03; Admin Dose 0.5 MG; Start 01/19/19 at 02:30 Enoxaparin Sodium (Lovenox) 40 mg DAILY SC Last administered on 01/21/19at 08:51; Admin Dose 40 MG; Start 01/19/19 at 09:00 Clopidogrel Bisulfate (plaVIX) 75 mg DAILY PO Last administered on 01/21/19at 08:18; Admin Dose 75 MG; Start 01/19/19 at 09:00 Diagnostic Test (Pha) (Accu-Chek) 1 ea 02 XX Last administered on 01/20/19at 02 :39; Admin Dose 1 EA; Start 01/20/19 at 02:00 Insulin Aspart (Novolog Insulin Pen) NOVOLOG *MILD* ALGORITHM WITH MEALS BEDTIME SC Last administered on 01/21/19at 08:51; Admin Dose 1 UNIT; Start 01/19 at 21:00 Ertapenem 1 gm/ Sodium Chloride 100 ml @ 200 mls/hr Q24H IVPB Last administered on 01/20/19at 16:23; Admin Dose 200 MLS/HR; Start 01/20/19 at 14:30 Furosemide (Lasix) 40 mg DAILY IV Last administered on 01/21/19at 08:19; Admin Dose 40 MG; Start 01/20/19 at 15:30 Assessment/Plan Hospital Course (Demo Recall) Assessment 1. Coronary artery disease status post acute coronary artery bypass graft surgery 2. Status post shock likely combination of cardiogenic and septic. 3. Chest CT demonstrates moderate right pleural effusion. Chest x-ray no sign ificant changes, chest tube removed. 4. Improved acute hypoxemic respiratory failure 5. History of prostate cancer Plan 1. Incentive spirometry and chest PT 2. Continue diuretics if tolerated, DC Galvez catheter 3. Aspiration precautions 4. Chest tube removed this morning 5. Physical therapy evaluation Repeat chest x-ray in crys.LA Markham MD, [facility] Jan 21, 2019 11:24
--- NOTE | 2019-01-21 13:06 | CONS ---
Assessment/Plan Assessment/Plan Hospital Course (Demo Recall) ID PROGRESS NOTE CURRENT ABX: DAY # 6 => Ertapenem #2 s/p Vanco IV + Merrem POD # 3-> s/p 01/16/19 s/p 4V CABG [ENRIQUEZ-LAD, SVG-PDA, SVG-OM, SVG-Ramus] 24H INTERVAL SUMMARY * A/A/O -- ambulatory in [employer] with walker, smiling, feeling well, good spirits, no fevers DIAGNOSTIC IMAGING * 01/21/19 CXR: IMPRESSION: * Probably no significant change since the prior day. * Subtle lucency at the left apex with prominent bullous changes visible on recent CT although for which the possibility of a tiny pneumothorax is not entirely excluded. Left basilar chest tube remains present as do mediastinal tubes. * Stable findings suggestive of CHF including bilateral pleural effusions and pulmonary vascular congestion. MICRO/OTHER * Blood culture on admission grew Citrobacter freundii, repeat blood cultures negative sputum culture, urine culture negative * BLOOD CULTURE Final Organism 1 CITROBACTER FREUNDII C FREUNDII M.I.C. RX --------- --- CEFOTAXIME S CIPROFLOXACIN <=0.25 S GENTAMICIN <=1 S LEVOFLOXACIN <=0.12 S TOBRAMYCIN <=1 S TRIMETHOPRIM/SULFAMETHOXAZOLE <=20 S PHYSICAL EXAMINATION: GENERAL: VSS, NAD, pleasant affect HEENT: AT, NC, anicteric NECK: Supple, CHEST: Equal chest rise bilaterally, without dyspnea on ambulation Mid-sternal incision DSG C/D/I HEART: Pulse RRR ABDOMEN: Soft / NT EXTREMITIES: Warm, dry -- LLEXT DSG C/D/I SKIN: No rash, no diaphoresis ID ASSESSMENT 73 yo M admit with: 1. S/p septic shock, possibly also cardiogenic 2. Gram-negative david bacteremia likely secondary to UTI 3. Pulmonary edema with superimposed pneumonia, possible aspiration * EF 30-35%. 3. Acute [place] status post emergency CABG 01/16/19 4. History of prostate cancer 5. History of hypertension 6. Acute anemia (-)MRSA Nares ABX ALLERGIES: KNDA INVASIVES: PIV CURRENT ABX: DAY #6 => => Ertapenem #2 s/p Vanco IV + Merrem ID RECOMMENDATIONS/PLAN: 1. Patient will need total ABX course 14 days for GNR (+)Bacteremia = Today is day #6 / 14 total days. * May PO switch on day #8-14 to Cipro 500mg po Q12H vs Levaquin 500mg daily as long as not contraindicated per QTC/cards approves. * Otherwise, continue IV coverage to complete total 14 days. Consultation Date/Type/Reason Admit Date/Time Jan 15, 2019 at 01:24 Initial Consult Date 01/17/19 Requesting Provider: NEFTALI LYNN Date/Time of Note DATE: 01/21/19 TIME: 13:06 Exam/Review of Systems Exam Vitals Vital Signs Date Temp Pulse Resp B/P (MAP) Pulse Ox O2 O2 Flow FiO2 Time Delivery Rate 01/21/19 78 12:55 01/21/19 97.9 18 101/56 94 Nasal 11:25 (71) Cannula 01/21/19 2.0 08:34 01/18/19 30 13:05 Intake and Output 01/20/19 01/20/19 01/21/19 1515:00 23:00 07:00 IntakeIntake Total 590 ml 300 ml 150 ml OutputOutput Total 341 ml 2409 ml 341 ml BalanceBalance 249 ml -2109 ml -191 ml Results Result Diagram: 01/21/19 0610 01/21/19 0610 Results 24hrs Laboratory Tests Test 01/20/19 13:28 01/20/19 21:31 01/21/19 06:10 01/21/19 08:15 Bedside Glucose 134 125 143 White Blood Count 9.6 Red Blood Count 3.03 L Hemoglobin 9.0 L Hematocrit 27.0 L Mean Corpuscular 89.1 Volume Mean Corpuscular 29.7 Hemoglobin Mean Corpuscular 33.3 Hemoglobin Concent Red Cell 14.9 H Distribution Width Platelet Count 219 # Mean Platelet Volume 10.5 H Immature 0.700 H Granulocytes % Neutrophils % 69.1 Lymphocytes % 14.6 L Monocytes % 11.7 H Eosinophils % 3.6 Basophils % 0.3 Nucleated Red Blood 0.0 Cells % Immature 0.070 H Granulocytes # Neutrophils # 6.6 Lymphocytes # 1.4 Monocytes # 1.1 H Eosinophils # 0.4 Basophils # 0.0 Nucleated Red Blood 0.0 Cells # Sodium Level 138 Potassium Level 3.5 Chloride Level 97 Carbon Dioxide Level 32 H Anion Gap 9 Blood Urea Nitrogen 33 H Creatinine 0.85 Est Glomerular Filtrat Rate mL/min Glucose Level 113 Calcium Level 8.9 Phosphorus Level 4.0 Magnesium Level 2.0 Test 01/21/19 12:30 Bedside Glucose 143 Medications Medication Current Medications IV Flush (NS 3 ml) 3 ml PER PROTOCOL IV ; Start 01/15/19 at 01:30 Nitroglycerin (Nitroglycerin (Sl Tab) 0.4 Mg) 1 tab Q5M PRN SL .CHEST PAIN Last administered on 01/18/19at 23:22; Admin Dose 1 TAB; Start 01/15/19 at 01:30 Docusate Sodium (Colace) 100 mg Q12H PRN PO .CONSTIPATION; Start 01/15/19 at 01:30 Bisacodyl (Dulcolax) 5 mg DAILY PRN PO .CONSTIPATION; Start 01/15/19 at 01:30 Bicalutamide (Casodex) 50 mg DAILY PO Last administered on 01/21/19at 10:56; Admin Dose 50 MG; Start 01/16/19 at 09:00 Tamsulosin HCl (Flomax) 0.4 mg BID PO Last administered on 01/21/19at 08:18; Admin Dose 0.4 MG; Start 01/15/19 at 21:00 Terazosin HCl (Hytrin) 5 mg HS PO Last administered on 01/15/19at 20:43; Admin Dose 5 MG; Start 01/15/19 at 21:00; Status Hold Amlodipine Besylate (Norvasc) 10 mg DAILY PO ; Start 01/16/19 at 09:00; Status Hold Atorvastatin Calcium (Lipitor) 40 mg HS PO Last administered on 01/20/19at 21:29; Admin Dose 40 MG; Start 01/15/19 at 21:00 Nitroglycerin (Nitroglycerin 2% Oint) 0.5 inch Q8 TD Last administered on 01/16/19at 01:23; Admin Dose 0.5 INCH; Start 01/16/19 at 01:00; Status Hold Oxycodone/ Acetaminophen (Percocet (5/ 325)) 1 tab Q4H PRN PO PAIN; Start 01/16/19 at 11:00 Al Hydrox/Mg Hydrox/Simethicone (Mag-Al Plus) 30 ml Q4H PRN PO GASTROINTESTINAL UPSET; Start 01/16/19 at 11:00 Oxycodone/ Acetaminophen (Percocet (5/ 325)) 1 tab Q3H PRN PO PAIN LEVEL 1-5; Start 01/16/19 at 17:30 Oxycodone/ Acetaminophen (Percocet (5/ 325)) 2 tab Q3H PRN PO PAIN LEVEL 6-10 L ast administered on 01/21/19at 00:49; Admin Dose 2 TAB; Start 01/16/19 at 17:30 Ondansetron HCl (Zofran Inj) 4 mg Q6H PRN IV NAUSEA AND/OR VOMITING; Start 01/16/19 at 17:30 Famotidine (Pepcid) 20 mg BID PO Last administered on 01/21/19 08:18; Admin Dose 20 MG; Start 01/16/19 at 21:00 Aspirin (Aspirin) 325 mg DAILY PO Last administered on 01/21/19 08:18; Admin Dose 325 MG; Start 01/17/19 at 09:00 Acetaminophen (Tylenol Tab) 650 mg Q3H PRN PO ELEVATED TEMPERATURE Last administered on 01/20/19at 01:17; Admin Dose 650 MG; Start 01/16/19 at 17:30 Potassium Chloride 50 ml @ 50 mls/hr SEE DIRECTION PRN IVPB K+ LEVEL Last administered on 01/17/19 09:51; Admin Dose 50 MLS/HR; Start 01/16/19 at 17:30 Magnesium Sulfate/ Dextrose 100 ml @ 100 mls/hr PRN PRN IVPB PENDING LAB VALUE; Start 01/16/19 at 17:30 Albumin Human 250 ml @ 250 mls/hr PRN PRN IV CVP <10 Last administered on 01/17/19at 22:36; Admin Dose 250 MLS/HR; Start 01/17/19 at 01:00 Morphine Sulfate (morphine) 2 mg Q4H PRN IV SEVERE PAIN LEVEL 7-10 Last administered on 01/20/19at 17:59; Admin Dose 2 MG; Start 01/18/19 at 16:00 Miscellaneous Information 1 ea NOTE XX ; Start 01/18/19 at 17:00 Glucose (Glutose) 15 gm Q15M PRN PO DECREASED GLUCOSE; Start 01/18/19 at 17:00 Glucose (Glutose) 22.5 gm Q15M PRN PO DECREASED GLUCOSE; Start 01/18/19 at 17:00 Dextrose (D50w Syringe) 25 ml Q15M PRN IV DECREASED GLUCOSE; Start 01/18/19 at 17:00 Dextrose (D50w Syringe) 50 ml Q15M PRN IV DECREASED GLUCOSE; Start 01/18/19 at 17:00 Glucagon (Glucagen) 1 mg Q15M PRN IM DECREASED GLUCOSE; Start 01/18/19 at 17:00 Glucose (Glutose) 15 gm Q15M PRN BUCCAL DECREASED GLUCOSE; Start 01/18/19 at 17:00 Metoprolol Tartrate (Lopressor) 25 mg BID PO Last administered on 01/21/19 08:18; Admin Dose 25 MG; Start 01/18/19 at 21:00 Lisinopril (Zestril) 10 mg BID PO Last administered on 01/21/19 08:19; Admin Dose 10 MG; Start 01/18/19 at 21:00 Levalbuterol (Xopenex Neb) 0.63 mg Q4H RESP THERAPY PRN HHN SHORTNESS OF BREATH Last administered on 01/19/19at 03:03; Admin Dose 0.63 MG; Start 01/19/19 at 02:30 Ipratropium [place] (Atrovent 0.02% (Neb)) 0.5 mg Q4H RESP THERAPY PRN HHN SHORTNESS OF BREATH Last administered on 01/19/19at 03:03; Admin Dose 0.5 MG; Start 01/19/19 at 02:30 Enoxaparin Sodium (Lovenox) 40 mg DAILY SC Last administered on 01/21/19at 08:51; Admin Dose 40 MG; Start 01/19/19 at 09:00 Clopidogrel Bisulfate (plaVIX) 75 mg DAILY PO Last administered on 01/21/19 08:18; Admin Dose 75 MG; Start 01/19/19 at 09:00 Diagnostic Test (Pha) (Accu-Chek) 1 ea 02 XX Last administered on 01/20/19at 02:39; Admin Dose 1 EA; Start 01/20/19 at 02:00 Insulin Aspart (Novolog Insulin Pen) NOVOLOG *MILD* ALGORITHM WITH MEALS BEDTIME SC Last administered on 01/21/19at 12:35; Admin Dose 1 UNIT; Start 01/19/19 at 21:00 Ertapenem 1 gm/ Sodium Chloride 100 ml @ 200 mls/hr Q24H IVPB Last administered on 01/20/19at 16:23; Admin Dose 200 MLS/HR; Start 01/20/19 at 14:30 Furosemide (Lasix) 40 mg DAILY IV Last administered on 01/21/19at 08:19; Admin Dose 40 MG; Start 01/20/19 at 15:30 GERRI VARELA NP Jan 21, 2019 13:06
--- NOTE | 2019-01-21 14:56 | PN ---
Date/Time of Note Date/Time of Note DATE: 01/21/19 TIME: 14:55 Objective Vitals Vital Signs Date Temp Pulse Resp B/P (MAP) Pulse Ox O2 O2 Flow FiO2 Time Delivery Rate 01/21/19 78 12:55 01/21/19 97.9 18 101/56 94 Nasal 11:25 (71) Cannula 01/21/19 2.0 08:34 01/18/19 30 13:05 Intake and Output 01/20/19 01/20/19 01/21/19 1515:00 23:00 07:00 IntakeIntake Total 590 ml 300 ml 150 ml OutputOutput Total 341 ml 2409 ml 341 ml BalanceBalance 249 ml -2109 ml -191 ml Results Result Diagram: 01/21/1960901/21/19609 Medications Medications Current Medications IV Flush (NS 3 ml) 3 ml PER PROTOCOL IV ; Start 01/15/19 at 01:30 Nitroglycerin (Nitroglycerin (Sl Tab) 0.4 Mg) 1 tab Q5M PRN SL .CHEST PAIN Last administered on 01/18/19at 23:22; Admin Dose 1 TAB; Start 01/15/19 at 01:30 Docusate Sodium (Colace) 100 mg Q12H PRN PO .CONSTIPATION; Start 01/15/19 at 01:30 Bisacodyl (Dulcolax) 5 mg DAILY PRN PO .CONSTIPATION; Start 01/15/19 at 01:30 Bicalutamide (Casodex) 50 mg DAILY PO Last administered on 01/21/19at 10:56; Admin Dose 50 MG; Start 01/16/19 at 09:00 Tamsulosin HCl (Flomax) 0.4 mg BID PO Last administered on 01/21/19at 08:18; Admin Dose 0.4 MG; Start 01/15/19 at 21:00 Terazosin HCl (Hytrin) 5 mg HS PO Last administered on 01/15/19at 20:43; Admin Dose 5 MG; Start 01/15/19 at 21:00; Status Hold Amlodipine Besylate (Norvasc) 10 mg DAILY PO ; Start 01/16/19 at 09:00; Status Hold Atorvastatin Calcium (Lipitor) 40 mg HS PO Last administered on 01/20/19at 21:29; Admin Dose 40 MG; Start 01/15/19 at 21:00 Nitroglycerin (Nitroglycerin 2% Oint) 0.5 inch Q8 TD Last administered on 01/16 01:23; Admin Dose 0.5 INCH; Start 01/16/19 at 01:00; Status Hold Oxycodone/ Acetaminophen (Percocet (5/ 325)) 1 tab Q4H PRN PO PAIN; Start 01/16/19 at 11:00 Al Hydrox/Mg Hydrox/Simethicone (Mag-Al Plus) 30 ml Q4H PRN PO GASTROINTESTINAL UPSET; Start 01/16/19 at 11:00 Oxycodone/ Acetaminophen (Percocet (5/ 325)) 1 tab Q3H PRN PO PAIN LEVEL 1-5; Start 01/16/19 at 17:30 Oxycodone/ Acetaminophen (Percocet (5/ 325)) 2 tab Q3H PRN PO PAIN LEVEL 6-10 Last administered on 01/21/19at 00:49; Admin Dose 2 TAB; Start 01/16/19 at 17:30 Ondansetron HCl (Zofran Inj) 4 mg Q6H PRN IV NAUSEA AND/OR VOMITING; Start 01/16/19 at 17:30 Famotidine (Pepcid) 20 mg BID PO Last administered on 01/21/19 08:18; Admin Dose 20 MG; Start 01/16/19 at 21:00 Aspirin (Aspirin) 325 mg DAILY PO Last administered on 01/21/19 08:18; Admin Dose 325 MG; Start 01/17/19 at 09:00 Acetaminophen (Tylenol Tab) 650 mg Q3H PRN PO ELEVATED TEMPERATURE Last administered on 01/20/19 01:17; Admin Dose 650 MG; Start 01/16/19 at 17:30 Potassium Chloride 50 ml @ 50 mls/hr SEE DIRECTION PRN IVPB K+ LEVEL Last administered on 01/17/19 09:51; Admin Dose 50 MLS/HR; Start 01/16/19 at 17:30 Magnesium Sulfate/ Dextrose 100 ml @ 100 mls/hr PRN PRN IVPB PENDING LAB VALUE; Start 01/16/19 at 17:30 Albumin Human 250 ml @ 250 mls/hr PRN PRN IV CVP <10 Last administered on 01/17/19at 22:36; Admin Dose 250 MLS/HR; Start 01/17/19 at 01:00 Morphine Sulfate (morphine) 2 mg Q4H PRN IV SEVERE PAIN LEVEL 7-10 Last administered on 01/20/19at 17:59; Admin Dose 2 MG; Start 01/18/19 at 16:00 Miscellaneous Information 1 ea NOTE XX ; Start 01/18/19 at 17:00 Glucose (Glutose) 15 gm Q15M PRN PO DECREASED GLUCOSE; Start 01/18/19 at 17:00 Glucose (Glutose) 22.5 gm Q15M PRN PO DECREASED GLUCOSE; Start 01/18/19 at 17:00 Dextrose (D50w Syringe) 25 ml Q15M PRN IV DECREASED GLUCOSE; Start 01/18/19 at 17:00 Dextrose (D50w Syringe) 50 ml Q15M PRN IV DECREASED GLUCOSE; Start 01/18/19 at 17:00 Glucagon (Glucagen) 1 mg Q15M PRN IM DECREASED GLUCOSE; Start 01/18/19 at 17:00 Glucose (Glutose) 15 gm Q15M PRN BUCCAL DECREASED GLUCOSE; Start 01/18/19 at 17:00 Metoprolol Tartrate (Lopressor) 25 mg BID PO Last administered on 01/21/19at 08:18; Admin Dose 25 MG; Start 01/18/19 at 21:00 Lisinopril (Zestril) 10 mg BID PO Last administered on 01/21/19at 08:19; Admin Dose 10 MG; Start 01/18/19 at 21:00 Levalbuterol (Xopenex Neb) 0.63 mg Q4H RESP THERAPY PRN HHN SHORTNESS OF BREATH Last administered on 01/19/19at 03:03; Admin Dose 0.63 MG; Start 01/19/19 at 02:30 Ipratropium [place] (Atrovent 0.02% (Neb)) 0.5 mg Q4H RESP THERAPY PRN HHN SHORTNESS OF BREATH Last administered on 01/19/19at 03:03; Admin Dose 0.5 MG; Start 01/19/19 at 02:30 Enoxaparin Sodium (Lovenox) 40 mg DAILY SC Last administered on 01/21/19at 08:51; Admin Dose 40 MG; Start 01/19/19 at 09:00 Clopidogrel Bisulfate (plaVIX) 75 mg DAILY PO Last administered on 01/21/19 08:18; Admin Dose 75 MG; Start 01/19/19 at 09:00 Diagnostic Test (Pha) (Accu-Chek) 1 ea 02 XX Last administered on 01/20/19 02:39; Admin Dose 1 EA; Start 01/20/19 at 02:00 Insulin Aspart (Novolog Insulin Pen) NOVOLOG *MILD* ALGORITHM WITH MEALS BEDTIME SC Last administered on 01/21/19 12:35; Admin Dose 1 UNIT; Start 01/19/19 at 21:00 Ertapenem 1 gm/ Sodium Chloride 100 ml @ 200 mls/hr Q24H IVPB Last administered on 01/20/19 16:23; Admin Dose 200 MLS/HR; Start 01/20/19 at 14:30 Furosemide (Lasix) 40 mg DAILY IV Last administered on 01/21/19 08:19; Admin Dose 40 MG; Start 01/20/19 at 15:30 VTE Prophylaxis Risk score (from Ns)>0 risk: 8 SCD applied (from [facility]): Yes Lines/Catheters IV Catheter Type: Galvez in Place: No Assessment/Plan Hospital Course Subjective Patient alert and oriented, doing well Objective Physical exam General: Patient is laying in bed and answering questions appropriately Mentation: Patient is alert and oriented Head: Normocephalic atraumatic Eyes: EOMI, pupils reactive to light Neck: Supple, nontender, midline Respiratory: Coarse to auscultation bilaterally Cardiovascular: regular rate, no obvious murmurs Gastrointestinal: non-tender to palpation, bowel sounds heard. Neurological: Able to move all extremities Skin: No new skin lesions A/P Non-ST elevation TX, status post left heart cath and now multivessel intervention with open heart surgery done January 16, 2019, -Continue pressors and other medications per cardiology and cardiothoracic surgeon, titrate off Skinny-Synephrine as tolerated - ECHO from November 2018 shows an ejection fraction of roughly 35-40% with diastolic dysfunction. Sepsis secondary to UTI - UA results noted. Will await urine cultures for sensitivities - Continue current antibiotic - may be catheter related given had one in place for 2 months -ID consulted Bacteremia -Gram-negative david, possible UTI source, infectious disease consulted, continue IV antibiotic Urinary retention - will restart home medications and monitor output. -Some decrease per nursing staff and urine output however this may be due secondary to everything else that is going on with above CABG and hypotension versus actual retention, however will monitor closely, unlikely retention given Galvez catheter Pleural effusions -Pulmonology on board -Chest physiotherapy ordered -Chest x-ray showing possible pleural effusion, spoke with pulmonology, will obtain repeat chest x-ray tomorrow, if positive may consider ordering th oracentesis tomorrow, continue diuretics for now. H/o Prostate cancer - follows with [facility] -Patient received Lupron Depo injection before admission HTN - continue meds per cardiology CM - continue meds per cardiology Disposition -Cardiothoracic and cardiology recommendations appreciated - PONCHO PEREYRA Jan 21, 2019 14:56
[2019-01-21] MEDS: ERTAPENEM SODIUM 1 GM in SOD CHLORIDE 0.9% 100 ML IVPB SCH (15:29)
--- NOTE | 2019-01-21 16:32 | CONS ---
Assessment/Plan Assessment/Plan Assessment/Plan (Daily) CAD s/p Bypass surgery Ischemic cardiomyopathy Acute systolic Hypertension Dyslipidemia. Benign prostatic hypertrophy. Prostate carcinoma. Clinically and hemodynamically stable Continue Lopressor Continue lisinopril Continue ASA and Plavix Continue Lipitor Continue Lasix Consultation Date/Type/Reason Admit Date/Time Jan 15, 2019 at 01:24 Type of Consult Cardiology Date/Time of Note DATE: 01/21/19 TIME: 16:27 Past Medical History Home Meds Active Scripts Sennosides/Docusate Sodium (Dok Plus Tablet) 1 Each Tablet, 2 TAB PO HS for 10 Days, #10 TAB 4 Refills Prov:ROMY ZAMORA MD 11/22/18 Acetaminophen* (Tylenol*) 325 Mg Tablet, 650 MG PO Q6H PRN for .PAIN 1-3 OR TEMP for 10 Days, TAB Prov:ROMY ZAMORA MD 11/22/18 Atorvastatin* (Atorvastatin*) 40 Mg Tablet, 40 MG PO HS for 30 Days, #30 TAB Prov:ROMY ZAMORA MD 11/22/18 Tamsulosin Hcl* (Flomax*) 0.4 Mg Cap.er.24h, 0.4 MG PO BID for 14 Days, #30 CAP Prov:ROMY ZAMORA MD 11/22/18 Bicalutamide* (Casodex*) 50 Mg Tablet, 50 MG PO DAILY for 14 Days, #15 TAB Prov:ROMY ZAMORA MD 11/22/18 Reported Medications Mirabegron (Myrbetriq) 50 Mg Tab.er.24h, 25 MG PO DAILY, TAB 11/18/18 Lisinopril* (Lisinopril*) 10 Mg Tablet, 10 MG PO BID, #30 TAB 11/18/18 Esomeprazole Mag Trihydrate (Nexium) 40 Mg Capsule.dr, 40 MG PO DAILY, #30 CAP 11/18/18 Terazosin Hcl* (Terazosin Hcl*) 5 Mg Capsule, 5 MG PO HS, CAP 11/18/18 Fluticasone Propionate (Flonase Allergy Relief) 9.9 Ml Hosmer.susp, 1 SPRAY NASAL DAILY, #1 BOTTLE TO EACH NOSTRIL 11/18/18 Metoprolol Tartrate* (Lopressor*) 25 Mg Tablet, 25 MG PO BID, #60 TAB 11/18/18 Aspirin* (Aspirin* EC) 81 Mg Tablet.dr, 81 MG PO DAILY, TAB 11/18/18 Amlodipine Besylate* (Amlodipine Besylate*) 10 Mg Tablet, 10 MG PO DAILY, #30 TAB 11/18/18 Medications Current Medications IV Flush (NS 3 ml) 3 ml PER PROTOCOL IV ; Start 01/15/19 at 01:30 Nitroglycerin (Nitroglycerin (Sl Tab) 0.4 Mg) 1 tab Q5M PRN SL .CHEST PAIN Last administered on 01/18/19at 23:22; Admin Dose 1 TAB; Start 01/15/19 at 01:30 Docusate Sodium (Colace) 100 mg Q12H PRN PO .CONSTIPATION; Start 01/15/19 at 01:30 Bisacodyl (Dulcolax) 5 mg DAILY PRN PO .CONSTIPATION; Start 01/15/19 at 01:30 Bicalutamide (Casodex) 50 mg DAILY PO Last administered on 01/21/19at 10:56; Admin Dose 50 MG; Start 01/16/19 at 09:00 Tamsulosin HCl (Flomax) 0.4 mg BID PO Last administered on 01/21/19at 08:18; Admin Dose 0.4 MG; Start 01/15/19 at 21:00 Terazosin HCl (Hytrin) 5 mg HS PO Last administered on 01/15/19at 20:43; Admin Dose 5 MG; Start 01/15/19 at 21:00; Status Hold Amlodipine Besylate (Norvasc) 10 mg DAILY PO ; Start 01/16/19 at 09:00; Status Hold Atorvastatin Calcium (Lipitor) 40 mg HS PO Last administered on 01/20/19at 21:29; Admin Dose 40 MG; Start 01/15/19 at 21:00 Nitroglycerin (Nitroglycerin 2% Oint) 0.5 inch Q8 TD Last administered on 01/16/19at 01:23; Admin Dose 0.5 INCH; Start 01/16/19 at 01:00; Status Hold Oxycodone/ Acetaminophen (Percocet (5/ 325)) 1 tab Q4H PRN PO PAIN; Start 01/16/19 at 11:00 Al Hydrox/Mg Hydrox/Simethicone (Mag-Al Plus) 30 ml Q4H PRN PO GASTROINTESTINAL UPSET; Start 01/16/19 at 11:00 Oxycodone/ Acetaminophen (Percocet (5/ 325)) 1 tab Q3H PRN PO PAIN LEVEL 1-5; Start 01/16/19 at 17:30 Oxycodone/ Acetaminophen (Percocet (5/ 325)) 2 tab Q3H PRN PO PAIN LEVEL 6-10 Last administered on 01/21/19at 00:49; Admin Dose 2 TAB; Start 01/16/19 at 17:30 Ondansetron HCl (Zofran Inj) 4 mg Q6H PRN IV NAUSEA AND/OR VOMITING; Start 01/16/19 at 17:30 Famotidine (Pepcid) 20 mg BID PO Last administered on 01/21/19 08:18; Admin Dose 20 MG; Start 01/16/19 at 21:00 Aspirin (Aspirin) 325 mg DAILY PO Last administered on 01/21/19 08:18; Admin Dose 325 MG; Start 01/17/19 at 09:00 Acetaminophen (Tylenol Tab) 650 mg Q3H PRN PO ELEVATED TEMPERATURE Last administered on 01/20/19 01:17; Admin Dose 650 MG; Start 01/16/19 at 17:30 Potassium Chloride 50 ml @ 50 mls/hr SEE DIRECTION PRN IVPB K+ LEVEL Last administered on 01/17/19at 09:51; Admin Dose 50 MLS/HR; Start 01/16/19 at 17:30 Magnesium Sulfate/ Dextrose 100 ml @ 100 mls/hr PRN PRN IVPB PENDING LAB VALUE; Start 01/16/19 at 17:30 Albumin Human 250 ml @ 250 mls/hr PRN PRN IV CVP <10 Last administered on 01/17/19at 22:36; Admin Dose 250 MLS/HR; Start 01/17/19 at 01:00 Morphine Sulfate (morphine) 2 mg Q4H PRN IV SEVERE PAIN LEVEL 7-10 Last administered on 01/20/19at 17:59; Admin Dose 2 MG; Start 01/18/19 at 16:00 Miscellaneous Information 1 ea NOTE XX ; Start 01/18/19 at 17:00 Glucose (Glutose) 15 gm Q15M PRN PO DECREASED GLUCOSE; Start 01/18/19 at 17:00 Glucose (Glutose) 22.5 gm Q15M PRN PO DECREASED GLUCOSE; Start 01/18/19 at 17 :00 Dextrose (D50w Syringe) 25 ml Q15M PRN IV DECREASED GLUCOSE; Start 01/18/19 at 17:00 Dextrose (D50w Syringe) 50 ml Q15M PRN IV DECREASED GLUCOSE; Start 01/18/19 at 17:00 Glucagon (Glucagen) 1 mg Q15M PRN IM DECREASED GLUCOSE; Start 01/18/19 at 17:00 Glucose (Glutose) 15 gm Q15M PRN BUCCAL DECREASED GLUCOSE; Start 01/18/19 at 17:00 Metoprolol Tartrate (Lopressor) 25 mg BID PO Last administered on 01/21/19 08:18; Admin Dose 25 MG; Start 01/18/19 at 21:00 Lisinopril (Zestril) 10 mg BID PO Last administered on 01/21/19 08:19; Admin Dose 10 MG; Start 01/18/19 at 21:00 Levalbuterol (Xopenex Neb) 0.63 mg Q4H RESP THERAPY PRN HHN SHORTNESS OF BREATH Last administered on 01/19/19 03:03; Admin Dose 0.63 MG; Start 01/19/19 at 02:30 Ipratropium [place] (Atrovent 0.02% (Neb)) 0.5 mg Q4H RESP THERAPY PRN HHN SHORTNESS OF BREATH Last administered on 01/19/19 03:03; Admin Dose 0.5 MG; S tart 01/19/19 at 02:30 Enoxaparin Sodium (Lovenox) 40 mg DAILY SC Last administered on 01/21/19 08: 51; Admin Dose 40 MG; Start 01/19/19 at 09:00 Clopidogrel Bisulfate (plaVIX) 75 mg DAILY PO Last administered on 01/21/19 08:18; Admin Dose 75 MG; Start 01/19/19 at 09:00 Diagnostic Test (Pha) (Accu-Chek) 1 ea 02 XX Last administered on 01/20/19 02:39; Admin Dose 1 EA; Start 01/20/19 at 02:00 Insulin Aspart (Novolog Insulin Pen) NOVOLOG *MILD* ALGORITHM WITH MEALS BEDTIME SC Last administered on 01/21/19 12:35; Admin Dose 1 UNIT; Start 01/19/19 at 21:00 Ertapenem 1 gm/ Sodium Chloride 100 ml @ 200 mls/hr Q24H IVPB Last administered on 01/21/19at 15:29; Admin Dose 200 MLS/HR; Start 01/20/19 at 14:30 Furosemide (Lasix) 40 mg DAILY IV Last administered on 01/21/19at 08:19; Admin Dose 40 MG; Start 01/20/19 at 15:30 Allergies: Coded Allergies: No Known Allergy (Unverified , 08/21/15) Past Surgical History Past Surgical Hx: no surgical history Social History Alcohol Use: none Smoking Status: Never smoker Drug Use: none Exam/Review of Systems Vital Signs Vitals Vital Signs Date Temp Pulse Resp B/P (MAP) Pulse Ox O2 O2 Flow FiO2 Time Delivery Rate 01/21/19 80 16:15 01/21/19 99.4 18 106/54 94 Nasal 15:13 (71) Cannula 01/21/19 2.0 08:34 01/18/19 30 13:05 Intake and Output 01/20/19 01/20/19 01/21/19 1515:00 23:00 07:00 IntakeIntake Total 590 ml 300 ml 150 ml OutputOutput Total 341 ml 2409 ml 341 ml BalanceBalance 249 ml -2109 ml -191 ml Exam Constitutional: alert Head: normocephalic, atraumatic Respiratory: diminished breath sounds Cardiovascular: regular rate and rhythm (no m/r/g) Gastrointestinal: soft Extremities: normal pulses Labs Result Diagram: 01/21/19 0610 01/21/19 0610 Results 24hrs Laboratory Tests Test 01/20/19 21:31 01/21/19 06:10 01/21/19 08:15 01/21/19 12:30 Bedside Glucose 125 143 143 White Blood Count 9.6 Red Blood Count 3.03 L Hemoglobin 9.0 L Hematocrit 27.0 L Mean Corpuscular 89.1 Volume Mean Corpuscular 29.7 Hemoglobin Mean Corpuscular 33.3 Hemoglobin Concent Red Cell 14.9 H Distribution Width Platelet Count 219 # Mean Platelet Volume 10.5 H Immature 0.700 H Granulocytes % Neutrophils % 69.1 Lymphocytes % 14.6 L Monocytes % 11.7 H Eosinophils % 3.6 Basophils % 0.3 Nucleated Red Blood 0.0 Cells % Immature 0.070 H Granulocytes # Neutrophils # 6.6 Lymphocytes # 1.4 Monocytes # 1.1 H Eosinophils # 0.4 Basophils # 0.0 Nucleated Red Blood 0.0 Cells # Sodium Level 138 Potassium Level 3.5 Chloride Level 97 Carbon Dioxide Level 32 H Anion Gap 9 Blood Urea Nitrogen 33 H Creatinine 0.85 Est Glomerular Filtrat Rate mL/min Glucose Level 113 Calcium Level 8.9 Phosphorus Level 4.0 Magnesium Level 2.0 Medications Medications Current Medications IV Flush (NS 3 ml) 3 ml PER PROTOCOL IV ; Start 01/15/19 at 01:30 Nitroglycerin (Nitroglycerin (Sl Tab) 0.4 Mg) 1 tab Q5M PRN SL .CHEST PAIN Last administered on 01/18/19at 23:22; Admin Dose 1 TAB; Start 01/15/19 at 01:30 Docusate Sodium (Colace) 100 mg Q12H PRN PO .CONSTIPATION; Start 01/15/19 at 01:30 Bisacodyl (Dulcolax) 5 mg DAILY PRN PO .CONSTIPATION; Start 01/15/19 at 01:30 Bicalutamide (Casodex) 50 mg DAILY PO Last administered on 01/21/19at 10:56; Admin Dose 50 MG; Start 01/16/19 at 09:00 Tamsulosin HCl (Flomax) 0.4 mg BID PO Last administered on 01/21/19at 08:18; Admin Dose 0.4 MG; Start 01/15/19 at 21:00 Terazosin HCl (Hytrin) 5 mg HS PO Last administered on 01/15/19at 20:43; Admin Dose 5 MG; Start 01/15/19 at 21:00; Status Hold Amlodipine Besylate (Norvasc) 10 mg DAILY PO ; Start 01/16/19 at 09:00; Status Hold Atorvastatin Calcium (Lipitor) 40 mg HS PO Last administered on 01/20/19at 21:29; Admin Dose 40 MG; Start 01/15/19 at 21:00 Nitroglycerin (Nitroglycerin 2% Oint) 0.5 inch Q8 TD Last administered on at 01:23; Admin Dose 0.5 INCH; Start 01/16/19 at 01:00; Status Hold Oxycodone/ Acetaminophen (Percocet (5/ 325)) 1 tab Q4H PRN PO PAIN; Start 01/16/19 at 11:00 Al Hydrox/Mg Hydrox/Simethicone (Mag-Al Plus) 30 ml Q4H PRN PO GASTROINTESTINAL UPSET; Start 01/16/19 at 11:00 Oxycodone/ Acetaminophen (Percocet (5/ 325)) 1 tab Q3H PRN PO PAIN LEVEL 1-5; Start 01/16/19 at 17:30 Oxycodone/ Acetaminophen (Percocet (5/ 325)) 2 tab Q3H PRN PO PAIN LEVEL 6-10 Last administered on 01/21/19 00:49; Admin Dose 2 TAB; Start 01/16/19 at 17:30 Ondansetron HCl (Zofran Inj) 4 mg Q6H PRN IV NAUSEA AND/OR VOMITING; Start 01/16/19 at 17:30 Famotidine (Pepcid) 20 mg BID PO Last administered on 01/21/19 08:18; Admin Dose 20 MG; Start 01/16/19 at 21:00 Aspirin (Aspirin) 325 mg DAILY PO Last administered on 01/21/19 08:18; Admin Dose 325 MG; Start 01/17/19 at 09:00 Acetaminophen (Tylenol Tab) 650 mg Q3H PRN PO ELEVATED TEMPERATURE Last administered on 01/20/19 01:17; Admin Dose 650 MG; Start 01/16/19 at 17:30 Potassium Chloride 50 ml @ 50 mls/hr SEE DIRECTION PRN IVPB K+ LEVEL Last administered on 01/17/19 09:51; Admin Dose 50 MLS/HR; Start 01/16/19 at 17:30 Magnesium Sulfate/ Dextrose 100 ml @ 100 mls/hr PRN PRN IVPB PENDING LAB VALUE; Start 01/16/19 at 17:30 Albumin Human 250 ml @ 250 mls/hr PRN PRN IV CVP <10 Last administered on 01/17/19at 22:36; Admin Dose 250 MLS/HR; Start 01/17/19 at 01:00 Morphine Sulfate (morphine) 2 mg Q4H PRN IV SEVERE PAIN LEVEL 7-10 Last administered on 01/20/19at 17:59; Admin Dose 2 MG; Start 01/18/19 at 16:00 Miscellaneous Information 1 ea NOTE XX ; Start 01/18/19 at 17:00 Glucose (Glutose) 15 gm Q15M PRN PO DECREASED GLUCOSE; Start 01/18/19 at 17:00 Glucose (Glutose) 22.5 gm Q15M PRN PO DECREASED GLUCOSE; Start 01/18/19 at 17:00 Dextrose (D50w Syringe) 25 ml Q15M PRN IV DECREASED GLUCOSE; Start 01/18/19 at 17:00 Dextrose (D50w Syringe) 50 ml Q15M PRN IV DECREASED GLUCOSE; Start 01/18/19 at 17:00 Glucagon (Glucagen) 1 mg Q15M PRN IM DECREASED GLUCOSE; Start 01/18/19 at 17:00 Glucose (Glutose) 15 gm Q15M PRN BUCCAL DECREASED GLUCOSE; Start 01/18/19 at 17:00 Metoprolol Tartrate (Lopressor) 25 mg BID PO Last administered on 01/21/19at 08:18; Admin Dose 25 MG; Start 01/18/19 at 21:00 Lisinopril (Zestril) 10 mg BID PO Last administered on 01/21/19at 08:19; Admin Dose 10 MG; Start 01/18/19 at 21:00 Levalbuterol (Xopenex Neb) 0.63 mg Q4H RESP THERAPY PRN HHN SHORTNESS OF BREATH Last administered on 01/19/19at 03:03; Admin Dose 0.63 MG; Start 01/19/19 at 02:30 Ipratropium [place] (Atrovent 0.02% (Neb)) 0.5 mg Q4H RESP THERAPY PRN HHN SHORTNESS OF BREATH Last administered on 01/19/19at 03:03; Admin Dose 0.5 MG; Start 01/19/19 at 02:30 Enoxaparin Sodium (Lovenox) 40 mg DAILY SC Last administered on 01/21/19at 08:51; Admin Dose 40 MG; Start 01/19/19 at 09:00 Clopidogrel Bisulfate (plaVIX) 75 mg DAILY PO Last administered on 01/21/19at 08:18; Admin Dose 75 MG; Start 01/19/19 at 09:00 Diagnostic Test (Pha) (Accu-Chek) 1 ea 02 XX Last administered on 01/20/19at 02:39; Admin Dose 1 EA; Start 01/20/19 at 02:00 Insulin Aspart (Novolog Insulin Pen) NOVOLOG *MILD* ALGORITHM WITH MEALS BEDTIME SC Last administered on 01/21/19at 12:35; Admin Dose 1 UNIT; Start 01/19/19 at 21:00 Ertapenem 1 gm/ Sodium Chloride 100 ml @ 200 mls/hr Q24H IVPB Last administered on 01/21/19at 15:29; Admin Dose 200 MLS/HR; Start 01/20/19 at 14:30 Furosemide (Lasix) 40 mg DAILY IV Last administered on 01/21/19at 08:19; Admin Dose 40 MG; Start 01/20/19 at 15:30 FRED PATTEN M.D. Jan 21, 2019 16:32
[2019-01-21] MEDS: ATORVASTATIN 40 MG TAB PO SCH (22:00)
[2019-01-22] VITALS (9 sets, daily range): BP systolic 102–108; BP diastolic 54–61; PULSE 72–90; RESP 18
[2019-01-22] MEDS: ACCU-CHEK XX SCH ×2 (02:00→21:15)
[2019-01-22] MEDS: INSULIN ASPART [NOVOLOG] 3 ML PEN SC SCH ×4 (07:53→21:00)
[2019-01-22] MEDS: ASPIRIN 325 MG TAB PO SCH (08:06)
[2019-01-22] MEDS: TAMSULOSIN (SR) 0.4 MG CAP PO SCH ×2 (08:07→21:08)
[2019-01-22] MEDS: CLOPIDOGREL 75 MG TAB PO SCH (08:07)
[2019-01-22] MEDS: METOPROLOL 25 MG TAB PO SCH ×2 (08:07→21:09)
[2019-01-22] MEDS: FAMOTIDINE 20 MG TAB PO SCH ×2 (08:07→21:08)
[2019-01-22] MEDS: FUROSEMIDE 40 MG INJ IV SCH (08:08)
[2019-01-22] MEDS: LISINOPRIL 10 MG TAB PO SCH ×2 (08:08→21:08)
--- NOTE | 2019-01-22 08:11 | PN ---
Date/Time of Note Date/Time of Note DATE: 01/22/19 TIME: 08:10 Assessment/Plan Lines/Catheters IV Catheter Type (from Nrs): Peripheral IV Galvez in Place (from Nrs): No (none) Assessment/Plan Assessment/Plan labs ok, cxr from yesterday showed decreased right effusion. no SOB. continue diuresis. home per pcp and follow up as outpt. Exam/Review of Systems Vital Signs Vitals Vital Signs Date Temp Pulse Resp B/P (MAP) Pulse Ox O2 O2 Flow FiO2 Time Delivery Rate 01/22/19 98.0 78 18 105/58 97 07:44 (74) 01/22/19 Nasal 2.0 04:00 Cannula 01/22/19 27 02:18 Intake and Output 01/21/19 01/21/19 01/22/19 1515:00 23:00 07:00 IntakeIntake Total 900 ml 440 ml OutputOutput Total 800 ml 300 ml BalanceBalance 100 ml 140 ml Results Result Diagram: 01/22/19 0542 01/22/19 0542 SHARON MONTGOMERY MD Jan 22, 2019 08:11
[2019-01-22] MEDS: BICALUTAMIDE 50 MG TAB PO SCH (08:42)
[2019-01-22] MEDS: ENOXAPARIN 40 MG/0.4 ML SYG SC SCH (08:43)
--- NOTE | 2019-01-22 12:20 | CONS ---
Consult Date/Type/Reason Admit Date/Time Jan 15, 2019 at 01:24 Initial Consult Date 01/17/19 Type of Consult Pulmonary Requesting Provider: NEFTALI LYNN Date/Time of Note DATE: 01/22/19 TIME: 12:19 Subjective Patient stable this morning no respiratory distress. Objective Vital Signs Date Temp Pulse Resp B/P (MAP) Pulse Ox O2 O2 Flow FiO2 Time Delivery Rate 01/22/19 81 12:12 01/22/19 98.0 18 108/61 98 12:07 (77) 01/22/19 Nasal 2.0 08:30 Cannula 01/22/19 27 02:18 Intake and Output 01/21/19 01/21/19 01/22/19 1515:00 23:00 07:00 IntakeIntake Total 900 ml 440 ml OutputOutput Total 800 ml 300 ml BalanceBalance 100 ml 140 ml Exam GENERAL: Well-nourished well-developed gentleman comfortable at rest VITAL SIGNS: per chart NECK: Supple. No JVD or lymphadenopathy. CARDIAC EXAM: S1, S2. No added sounds or murmurs. CHEST: Diminished air entry at bases ABDOMEN: Soft, nontender. No guarding or rebound. EXTREMITIES: No cyanosis, clubbing or edema. NEUROLOGIC: Generalized weakness. No focal deficits. Vent Setting Ventilator Support Mode: CPAP, PS Fraction of Inspired Oxygen pe: 27 Positive End Expiratory Pressu: 5.0 Results/Medications Result Diagram: 01/22/19 0542 01/22/19 0542 Results 24 hrs Laboratory Tests Test 01/21/19 12:30 01/21/19 17:39 01/21/19 22:09 01/22/19 05:42 Bedside Glucose 143 120 163 White Blood Count 9.6 Red Blood Count 3.10 L Hemoglobin 9.2 L Hematocrit 27.7 L Mean Corpuscular 89.4 Volume Mean Corpuscular 29.7 Hemoglobin Mean Corpuscular 33.2 Hemoglobin Concent Red Cell 14.7 H Distribution Width Platelet Count 277 # Mean Platelet Volume 10.5 H Immature 1.200 H Granulocytes % Neutrophils % 63.9 Lymphocytes % 18.5 Monocytes % 12.0 H Eosinophils % 4.1 Basophils % 0.3 Nucleated Red Blood 0.0 Cells % Immature 0.120 H Granulocytes # Neutrophils # 6.2 Lymphocytes # 1.8 Monocytes # 1.2 H Eosinophils # 0.4 Basophils # 0.0 Nucleated Red Blood 0.0 Cells # Sodium Level 137 Potassium Level 3.9 Chloride Level 99 Carbon Dioxide Level 31 Anion Gap 7 Blood Urea Nitrogen 33 H Creatinine 0.81 Est Glomerular Filtrat Rate mL/min Glucose Level 119 Calcium Level 8.2 L Phosphorus Level 3.2 Magnesium Level 2.1 Test 01/22/19 07:52 Bedside Glucose 130 Medications Current Medications IV Flush (NS 3 ml) 3 ml PER PROTOCOL IV ; Start 01/15/19 at 01:30 Nitroglycerin (Nitroglycerin (Sl Tab) 0.4 Mg) 1 tab Q5M PRN SL .CHEST PAIN Last administered on 01/18/19at 23:22; Admin Dose 1 TAB; Start 01/15/19 at 01:30 Docusate Sodium (Colace) 100 mg Q12H PRN PO .CONSTIPATION; Start 01/15/19 at 01:30 Bisacodyl (Dulcolax) 5 mg DAILY PRN PO .CONSTIPATION; Start 01/15/19 at 01:30 Bicalutamide (Casodex) 50 mg DAILY PO Last administered on 01/22/19at 08:42; Admin Dose 50 MG; Start 01/16/19 at 09:00 Tamsulosin HCl (Flomax) 0.4 mg BID PO Last administered on 01/22/19at 08:07; Admin Dose 0.4 MG; Start 01/15/19 at 21:00 Terazosin HCl (Hytrin) 5 mg HS PO Last administered on 01/15/19at 20:43; Admin Dose 5 MG; Start 01/15/19 at 21:00; Status Hold Amlodipine Besylate (Norvasc) 10 mg DAILY PO ; Start 01/16/19 at 09:00; Status Hold Atorvastatin Calcium (Lipitor) 40 mg HS PO Last administered on 01/21/19at 22:00; Admin Dose 40 MG; Start 01/15/19 at 21:00 Nitroglycerin (Nitroglycerin 2% Oint) 0.5 inch Q8 TD Last administered on 01/16/19at 01:23; Admin Dose 0.5 INCH; Start 01/16/19 at 01:00; Status Hold Oxycodone/ Acetaminophen (Percocet (5/ 325)) 1 tab Q4H PRN PO PAIN; Start 01/16/19 at 11:00 Al Hydrox/Mg Hydrox/Simethicone (Mag-Al Plus) 30 ml Q4H PRN PO GASTROINTESTINAL UPSET; Start 01/16/19 at 11:00 Oxycodone/ Acetaminophen (Percocet (5/ 325)) 1 tab Q3H PRN PO PAIN LEVEL 1-5; Start 01/16/19 at 17:30 Oxycodone/ Acetaminophen (Percocet (5/ 325)) 2 tab Q3H PRN PO PAIN LEVEL 6-10 Last administered on 01/21/19at 00:49; Admin Dose 2 TAB; Start 01/16/19 at 17:30 Ondansetron HCl (Zofran Inj) 4 mg Q6H PRN IV NAUSEA AND/OR VOMITING; Start 01/16/19 at 17:30 Famotidine (Pepcid) 20 mg BID PO Last administered on 01/22/19 08:07; Admin Dose 20 MG; Start 01/16/19 at 21:00 Aspirin (Aspirin) 325 mg DAILY PO Last administered on 01/22/19 08:06; Admin Dose 325 MG; Start 01/17/19 at 09:00 Acetaminophen (Tylenol Tab) 650 mg Q3H PRN PO ELEVATED TEMPERATURE Last administered on 01/20/19 01:17; Admin Dose 650 MG; Start 01/16/19 at 17:30 Potassium Chloride 50 ml @ 50 mls/hr SEE DIRECTION PRN IVPB K+ LEVEL Last administered on 01/17/19 09:51; Admin Dose 50 MLS/HR; Start 01/16/19 at 17:30 Magnesium Sulfate/ Dextrose 100 ml @ 100 mls/hr PRN PRN IVPB PENDING LAB VALUE; Start 01/16/19 at 17:30 Albumin Human 250 ml @ 250 mls/hr PRN PRN IV CVP <10 Last administered on 01/17/19at 22:36; Admin Dose 250 MLS/HR; Start 01/17/19 at 01:00 Morphine Sulfate (morphine) 2 mg Q4H PRN IV SEVERE PAIN LEVEL 7-10 Last administered on 01/20/19at 17:59; Admin Dose 2 MG; Start 01/18/19 at 16:00 Miscellaneous Information 1 ea NOTE XX ; Start 01/18/19 at 17:00 Glucose (Glutose) 15 gm Q15M PRN PO DECREASED GLUCOSE; Start 01/18/19 at 17:00 Glucose (Glutose) 22.5 gm Q15M PRN PO DECREASED GLUCOSE; Start 01/18/19 at 17:00 Dextrose (D50w Syringe) 25 ml Q15M PRN IV DECREASED GLUCOSE; Start 01/18/19 at 17:00 Dextrose (D50w Syringe) 50 ml Q15M PRN IV DECREASED GLUCOSE; Start 01/18/19 at 17:00 Glucagon (Glucagen) 1 mg Q15M PRN IM DECREASED GLUCOSE; Start 01/18/19 at 17:00 Glucose (Glutose) 15 gm Q15M PRN BUCCAL DECREASED GLUCOSE; Start 01/18/19 at 17:00 Metoprolol Tartrate (Lopressor) 25 mg BID PO Last administered on 01/21/19at 22:01; Admin Dose 25 MG; Start 01/18/19 at 21:00 Lisinopril (Zestril) 10 mg BID PO Last administered on 01/21/19at 08:19; Admin Dose 10 MG; Start 01/18/19 at 21:00 Levalbuterol (Xopenex Neb) 0.63 mg Q4H RESP THERAPY PRN HHN SHORTNESS OF BREATH Last administered on 01/19/19at 03:03; Admin Dose 0.63 MG; Start 01/19/19 at 02:30 Ipratropium [place] (Atrovent 0.02% (Neb)) 0.5 mg Q4H RESP THERAPY PRN HHN SHORTNESS OF BREATH Last administered on 01/19/19at 03:03; Admin Dose 0.5 MG; Start 01/19/19 at 02:30 Enoxaparin Sodium (Lovenox) 40 mg DAILY SC Last administered on 01/22/19at 08:43; Admin Dose 40 MG; Start 01/19/19 at 09:00 Clopidogrel Bisulfate (plaVIX) 75 mg DAILY PO Last administered on 01/22/19at 08:07; Admin Dose 75 MG; Start 01/19/19 at 09:00 Diagnostic Test (Pha) (Accu-Chek) 1 ea 02 XX Last administered on 01/20/19at 02:39; Admin Dose 1 EA; Start 01/20/19 at 02:00 Insulin Aspart (Novolog Insulin Pen) NOVOLOG *MILD* ALGORITHM WITH MEALS BEDTIM E SC Last administered on 01/21/19at 12:35; Admin Dose 1 UNIT; Start 01/19/19 at 21:00 Ertapenem 1 gm/ Sodium Chloride 100 ml @ 200 mls/hr Q24H IVPB Last administered on 01/21/19at 15:29; Admin Dose 200 MLS/HR; Start 01/20/19 at 14:30 Furosemide (Lasix) 40 mg DAILY IV Last administered on 01/22/19at 08:08; Admin Dose 40 MG; Start 01/20/19 at 15:30 Assessment/Plan Hospital Course (Demo Recall) assessment 1. Coronary artery disease status post acute coronary artery bypass graft surgery 2. Status post shock likely combination of cardiogenic and septic. 3. Chest CT demonstrates moderate right pleural effusion. Chest x-ray no significant changes, chest tube removed. 4. Improved acute hypoxemic respiratory failure 5. History of prostate cancer Plan 1. Incentive spirometry and chest PT 2. Encourage out of bed 3. Aspiration precautions [facility] evaluation [facility] Jan 22, 2019 12:20
--- NOTE | 2019-01-22 14:26 | PN ---
Date/Time of Note Date/Time of Note DATE: 01/22/19 TIME: 14:25 Objective Vitals Vital Signs Date Temp Pulse Resp B/P (MAP) Pulse Ox O2 O2 Flow FiO2 Time Delivery Rate 01/22/19 81 12:12 01/22/19 98.0 18 108/61 98 12:07 (77) 01/22/19 Nasal 2.0 08:30 Cannula 01/22/19 27 02:18 Intake and Output 01/21/19 01/21/19 01/22/19 1515:00 23:00 07:00 IntakeIntake Total 900 ml 440 ml OutputOutput Total 800 ml 300 ml BalanceBalance 100 ml 140 ml Results Result Diagram: 01/22/19 0542 01/22/19 0542 Medications Medications Current Medications IV Flush (NS 3 ml) 3 ml PER PROTOCOL IV ; Start 01/15/19 at 01:30 Nitroglycerin (Nitroglycerin (Sl Tab) 0.4 Mg) 1 tab Q5M PRN SL .CHEST PAIN Last administered on 01/18/19at 23:22; Admin Dose 1 TAB; Start 01/15/19 at 01:30 Docusate Sodium (Colace) 100 mg Q12H PRN PO .CONSTIPATION; Start 01/15/19 at 01:30 Bisacodyl (Dulcolax) 5 mg DAILY PRN PO .CONSTIPATION; Start 01/15/19 at 01:30 Bicalutamide (Casodex) 50 mg DAILY PO Last administered on 01/22/19at 08:42; Admin Dose 50 MG; Start 01/16/19 at 09:00 Tamsulosin HCl (Flomax) 0.4 mg BID PO Last administered on 01/22/19at 08:07; Admin Dose 0.4 MG; Start 01/15/19 at 21:00 Terazosin HCl (Hytrin) 5 mg HS PO Last administered on 01/15/19at 20:43; Admin Dose 5 MG; Start 01/15/19 at 21:00; Status Hold Amlodipine Besylate (Norvasc) 10 mg DAILY PO ; Start 01/16/19 at 09:00; Status Hold Atorvastatin Calcium (Lipitor) 40 mg HS PO Last administered on 01/21/19at 22:00; Admin Dose 40 MG; Start 01/15/19 at 21:00 Nitroglycerin (Nitroglycerin 2% Oint) 0.5 inch Q8 TD Last administered on 01/16/19at 01:23; Admin Dose 0.5 INCH; Start 01/16/19 at 01:00; Status Hold Oxycodone/ Acetaminophen (Percocet (5/ 325)) 1 tab Q4H PRN PO PAIN; Start 01/16/19 at 11:00 Al Hydrox/Mg Hydrox/Simethicone (Mag-Al Plus) 30 ml Q4H PRN PO GASTROINTESTINAL UPSET; Start 01/16/19 at 11:00 Oxycodone/ Acetaminophen (Percocet (5/ 325)) 1 tab Q3H PRN PO PAIN LEVEL 1-5; Start 01/16/19 at 17:30 Oxycodone/ Acetaminophen (Percocet (5/ 325)) 2 tab Q3H PRN PO PAIN LEVEL 6-10 Last administered on 01/21/19at 00:49; Admin Dose 2 TAB; Start 01/16/19 at 17:30 Ondansetron HCl (Zofran Inj) 4 mg Q6H PRN IV NAUSEA AND/OR VOMITING; Start 01/16/19 at 17:30 Famotidine (Pepcid) 20 mg BID PO Last administered on 01/22/19 08:07; Admin Dose 20 MG; Start 01/16/19 at 21:00 Aspirin (Aspirin) 325 mg DAILY PO Last administered on 01/22/19at 08:06; Admin Dose 325 MG; Start 01/17/19 at 09:00 Acetaminophen (Tylenol Tab) 650 mg Q3H PRN PO ELEVATED TEMPERATURE Last administered on 01/20/19at 01:17; Admin Dose 650 MG; Start 01/16/19 at 17:30 Potassium Chloride 50 ml @ 50 mls/hr SEE DIRECTION PRN IVPB K+ LEVEL Last administered on 01/17/19at 09:51; Admin Dose 50 MLS/HR; Start 01/16/19 at 17:30 Magnesium Sulfate/ Dextrose 100 ml @ 100 mls/hr PRN PRN IVPB PENDING LAB VALUE; Start 01/16/19 at 17:30 Albumin Human 250 ml @ 250 mls/hr PRN PRN IV CVP <10 Last administered on 01/17/19at 22:36; Admin Dose 250 MLS/HR; Start 01/17/19 at 01:00 Morphine Sulfate (morphine) 2 mg Q4H PRN IV SEVERE PAIN LEVEL 7-10 Last administered on 01/20/19at 17:59; Admin Dose 2 MG; Start 01/18/19 at 16:00 Miscellaneous Information 1 ea NOTE XX ; Start 01/18/19 at 17:00 Glucose (Glutose) 15 gm Q15M PRN PO DECREASED GLUCOSE; Start 01/18/19 at 17:00 Glucose (Glutose) 22.5 gm Q15M PRN PO DECREASED GLUCOSE; Start 01/18/19 at 17:00 Dextrose (D50w Syringe) 25 ml Q15M PRN IV DECREASED GLUCOSE; Start 01/18/19 at 17:00 Dextrose (D50w Syringe) 50 ml Q15M PRN IV DECREASED GLUCOSE; Start 01/18/19 at 17:00 Glucagon (Glucagen) 1 mg Q15M PRN IM DECREASED GLUCOSE; Start 01/18/19 at 17:00 Glucose (Glutose) 15 gm Q15M PRN BUCCAL DECREASED GLUCOSE; Start 01/18/19 at 17:00 Metoprolol Tartrate (Lopressor) 25 mg BID PO Last administered on 01/21/19at 22:01; Admin Dose 25 MG; Start 01/18/19 at 21:00 Lisinopril (Zestril) 10 mg BID PO Last administered on 01/21/19at 08:19; Admin Dose 10 MG; Start 01/18/19 at 21:00 Levalbuterol (Xopenex Neb) 0.63 mg Q4H RESP THERAPY PRN HHN SHORTNESS OF BREATH Last administered on 01/19/19at 03:03; Admin Dose 0.63 MG; Start 01/19/19 at 02:30 Ipratropium [place] (Atrovent 0.02% (Neb)) 0.5 mg Q4H RESP THERAPY PRN HHN SHORTNESS OF BREATH Last administered on 01/19/19at 03:03; Admin Dose 0.5 MG; Start 01/19/19 at 02:30 Enoxaparin Sodium (Lovenox) 40 mg DAILY SC Last administered on 01/22/19at 08:43; Admin Dose 40 MG; Start 01/19/19 at 09:00 Clopidogrel Bisulfate (plaVIX) 75 mg DAILY PO Last administered on 01/22/19at 08:07; Admin Dose 75 MG; Start 01/19/19 at 09:00 Diagnostic Test (Pha) (Accu-Chek) 1 ea 02 XX Last administered on 01/20/19 02:39; Admin Dose 1 EA; Start 01/20/19 at 02:00 Insulin Aspart (Novolog Insulin Pen) NOVOLOG *MILD* ALGORITHM WITH MEALS BEDTIME SC Last administered on 01/21/19 12:35; Admin Dose 1 UNIT; Start 01/19/19 at 21:00 Ertapenem 1 gm/ Sodium Chloride 100 ml @ 200 mls/hr Q24H IVPB Last administered on 01/21/19 15:29; Admin Dose 200 MLS/HR; Start 01/20/19 at 14:30 Furosemide (Lasix) 40 mg DAILY IV Last administered on 01/22/19 08:08; Admin Dose 40 MG; Start 01/20/19 at 15:30 VTE Prophylaxis Risk score (from [facility])>0 risk: 6 SCD applied (from [facility]): Yes Lines/Catheters IV Catheter Type: Galvez in Place: No Assessment/Plan Hospital Course Subjective Patient alert and oriented, doing well however since Galvez was removed patient complains of frequent urination of small amounts Objective Physical exam General: Patient is laying in bed and answering questions appropriately Mentation: Patient is alert and oriented Head: Normocephalic atraumatic Eyes: EOMI, pupils reactive to light Neck: Supple, nontender, midline Respiratory: Coarse to auscultation bilaterally Cardiovascular: regular rate, no obvious murmurs Gastrointestinal: non-tender to palpation, bowel sounds heard. Neurological: Able to move all extremities Skin: No new skin lesions A/P Non-ST elevation MD, status post left heart cath and now multivessel intervention with open heart surgery done January 16, 2019, -Continue pressors and other medications per cardiology and cardiothoracic surgeon, titrate off Skinny-Synephrine as tolerated - ECHO from November 2018 shows an ejection fraction of roughly 35-40% with diastolic dysfunction. Sepsis secondary to UTI - UA results noted. Will await urine cultures for sensitivities - Continue current antibiotic - may be catheter related given had one in place for 2 months -ID consulted Bacteremia -Gram-negative david, possible UTI source, infectious disease consulted, continue IV antibiotic Urinary retention -Acute on chronic -Patient able to urinate without Galvez however it is frequent and small amounts -Ordered bladder scan, will perform straight cath if postvoid residual is over 300 Pleural effusions -Pulmonology on board -Chest physiotherapy ordered -Chest x-ray showing possible pleural effusion, spoke with pulmonology, will obtain repeat chest x-ray tomorrow, if positive may consider ordering thoracentesis tomorrow, continue diuretics for now. H/o Prostate cancer - follows with [facility] -Patient received Lupron Depo injection before admission -Continue other med HTN - continue meds per cardiology CM - continue meds per cardiology Disposition -Cardiothoracic and cardiology recommendations appreciated -Monitor, have PT see patient PONCHO PEREYRA Jan 22, 2019 14:26
--- NOTE | 2019-01-22 14:47 | CONS ---
Assessment/Plan Assessment/Plan Hospital Course (Demo Recall) ID PROGRESS NOTE CURRENT ABX: DAY # 7=> Ertapenem #3 s/p Vanco IV + Merrem POD # 4-> s/p 01/16/19 s/p 4V CABG [ENRIQUEZ-LAD, SVG-PDA, SVG-OM, SVG-Ramus] 24H INTERVAL SUMMARY * Continues to progress daily --- A/A/O -- ambulatory in [employer] with walker, smiling, feeling well, good spirits, no fevers DIAGNOSTIC IMAGING * 01/21/19 CXR: IMPRESSION: * Probably no significant change since the prior day. * Subtle lucency at the left apex with prominent bullous changes visible on recent CT although for which the possibility of a tiny pneumothorax is not entirely excluded. Left basilar chest tube remains present as do mediastinal tubes. * Stable findings suggestive of CHF including bilateral pleural effusions and pulmonary vascular congestion. MICRO/OTHER * Blood culture on admission grew Citrobacter freundii, repeat blood cultures negative sputum culture, urine culture negative * BLOOD CULTURE Final Organism 1 CITROBACTER FREUNDII C FREUNDII M.I.C. RX --------- --- CEFOTAXIME S CIPROFLOXACIN <=0.25 S GENTAMICIN <=1 S LEVOFLOXACIN <=0.12 S TOBRAMYCIN <=1 S TRIMETHOPRIM/SULFAMETHOXAZOLE <=20 S PHYSICAL EXAMINATION: GENERAL: VSS, NAD, pleasant affect HEENT: AT, NC, anicteric NECK: Supple, CHEST: Equal chest rise bilaterally, without dyspnea on ambulation Mid-sternal incision DSG C/D/I HEART: Pulse RRR ABDOMEN: Soft / NT EXTREMITIES: Warm, dry -- LLEXT DSG C/D/I SKIN: No rash, no diaphoresis ID ASSESSMENT 73 yo M admit with: 1. S/p septic shock, possibly also cardiogenic 2. Gram-negative david bacteremia likely secondary to UTI 3. Pulmonary edema with superimposed pneumonia, possible aspiration * EF 30-35%. 3. Acute PR status post emergency CABG 01/16/19 4. History of prostate cancer 5. History of hypertension 6. Acute anemia (-)MRSA Nares ABX ALLERGIES: KNDA INVASIVES: PIV CURRENT ABX: DAY #7 => => Ertapenem #3 s/p Vanco IV + Merrem ID RECOMMENDATIONS/PLAN: 1. Patient will need total ABX course 14 days for GNR (+)Bacteremia = Today is day #7/ 14 total days. * May PO switch on day #8-14 to Cipro 500mg po Q12H vs Levaquin 500mg daily as long as not contraindicated per QTC/cards approves. * Otherwise, continue IV coverage to complete total 14 days. Consultation Date/Type/Reason Admit Date/Time Jan 15, 2019 at 01:24 Initial Consult Date 01/17/19 Requesting Provider: NEFTALI LYNN Date/Time of Note DATE: 01/22/19 TIME: 14:46 Exam/Review of Systems Exam Vitals Vital Signs Date Temp Pulse Resp B/P (MAP) Pulse Ox O2 O2 Flow FiO2 Time Delivery Rate 01/22/19 81 12:12 01/22/19 98.0 18 108/61 98 12:07 (77) 01/22/19 Nasal 2.0 08:30 Cannula 01/22/19 27 02:18 Intake and Output 01/21/19 01/21/19 01/22/19 1515:00 23:00 07:00 IntakeIntake Total 900 ml 440 ml OutputOutput Total 800 ml 300 ml BalanceBalance 100 ml 140 ml Results Result Diagram: 01/22/19 0542 01/22/19 0542 Results 24hrs Laboratory Tests Test 01/21/19 17:39 01/21/19 22:09 01/22/19 05:42 01/22/19 07:52 Bedside Glucose 120 163 130 White Blood Count 9.6 Red Blood Count 3.10 L Hemoglobin 9.2 L Hematocrit 27.7 L Mean Corpuscular 89.4 Volume Mean Corpuscular 29.7 Hemoglobin Mean Corpuscular 33.2 Hemoglobin Concent Red Cell 14.7 H Distribution Width Platelet Count 277 # Mean Platelet Volume 10.5 H Immature 1.200 H Granulocytes % Neutrophils % 63.9 Lymphocytes % 18.5 Monocytes % 12.0 H Eosinophils % 4.1 Basophils % 0.3 Nucleated Red Blood 0.0 Cells % Immature 0.120 H Granulocytes # Neutrophils # 6.2 Lymphocytes # 1.8 Monocytes # 1.2 H Eosinophils # 0.4 Basophils # 0.0 Nucleated Red Blood 0.0 Cells # Sodium Level 137 Potassium Level 3.9 Chloride Level 99 Carbon Dioxide Level 31 Anion Gap 7 Blood Urea Nitrogen 33 H Creatinine 0.81 Est Glomerular Filtrat Rate mL/min Glucose Level 119 Calcium Level 8.2 L Phosphorus Level 3.2 Magnesium Level 2.1 Test 01/22/19 12:13 Bedside Glucose 131 Medications Medication Current Medications IV Flush (NS 3 ml) 3 ml PER PROTOCOL IV ; Start 01/15/19 at 01:30 Nitroglycerin (Nitroglycerin (Sl Tab) 0.4 Mg) 1 tab Q5M PRN SL .CHEST PAIN Last administered on 01/18/19at 23:22; Admin Dose 1 TAB; Start 01/15/19 at 01:30 Docusate Sodium (Colace) 100 mg Q12H PRN PO .CONSTIPATION; Start 01/15/19 at 01:30 Bisacodyl (Dulcolax) 5 mg DAILY PRN PO .CONSTIPATION; Start 01/15/19 at 01:30 Bicalutamide (Casodex) 50 mg DAILY PO Last administered on 01/22/19at 08:42; Admin Dose 50 MG; Start 01/16/19 at 09:00 Tamsulosin HCl (Flomax) 0.4 mg BID PO Last administered on 01/22/19at 08:07; Ad min Dose 0.4 MG; Start 01/15/19 at 21:00 Terazosin HCl (Hytrin) 5 mg HS PO Last administered on 01/15/19at 20:43; Admin Dose 5 MG; Start 01/15/19 at 21:00; Status Hold Amlodipine Besylate (Norvasc) 10 mg DAILY PO ; Start 01/16/19 at 09:00; Status Hold Atorvastatin Calcium (Lipitor) 40 mg HS PO Last administered on 01/21/19at 22:00; Admin Dose 40 MG; Start 01/15/19 at 21:00 Nitroglycerin (Nitroglycerin 2% Oint) 0.5 inch Q8 TD Last administered on 01/16/19 01:23; Admin Dose 0.5 INCH; Start 01/16/19 at 01:00; Status Hold Oxycodone/ Acetaminophen (Percocet (5/ 325)) 1 tab Q4H PRN PO PAIN; Start 01/16/19 at 11:00 Al Hydrox/Mg Hydrox/Simethicone (Mag-Al Plus) 30 ml Q4H PRN PO GASTROINTESTINAL UPSET; Start 01/16/19 at 11:00 Oxycodone/ Acetaminophen (Percocet (5/ 325)) 1 tab Q3H PRN PO PAIN LEVEL 1-5; Start 01/16/19 at 17:30 Oxycodone/ Acetaminophen (Percocet (5/ 325)) 2 tab Q3H PRN PO PAIN LEVEL 6-10 Last administered on 01/21/19at 00:49; Admin Dose 2 TAB; Start 01/16/19 at 17:30 Ondansetron HCl (Zofran Inj) 4 mg Q6H PRN IV NAUSEA AND/OR VOMITING; Start 01/16/19 at 17:30 Famotidine (Pepcid) 20 mg BID PO Last administered on 01/22/19 08:07; Admin Dose 20 MG; Start 01/16/19 at 21:00 Aspirin (Aspirin) 325 mg DAILY PO Last administered on 01/22/19 08:06; Admin Dose 325 MG; Start 01/17/19 at 09:00 Acetaminophen (Tylenol Tab) 650 mg Q3H PRN PO ELEVATED TEMPERATURE Last administered on 01/20/19at 01:17; Admin Dose 650 MG; Start 01/16/19 at 17:30 Potassium Chloride 50 ml @ 50 mls/hr SEE DIRECTION PRN IVPB K+ LEVEL Last administered on 01/17/19 09:51; Admin Dose 50 MLS/HR; Start 01/16/19 at 17:30 Magnesium Sulfate/ Dextrose 100 ml @ 100 mls/hr PRN PRN IVPB PENDING LAB VALUE; Start 01/16/19 at 17:30 Albumin Human 250 ml @ 250 mls/hr PRN PRN IV CVP <10 Last administered on 01/17/19at 22:36; Admin Dose 250 MLS/HR; Start 01/17/19 at 01:00 Morphine Sulfate (morphine) 2 mg Q4H PRN IV SEVERE PAIN LEVEL 7-10 Last administered on 01/20/19at 17:59; Admin Dose 2 MG; Start 01/18/19 at 16:00 Miscellaneous Information 1 ea NOTE XX ; Start 01/18/19 at 17:00 Glucose (Glutose) 15 gm Q15M PRN PO DECREASED GLUCOSE; Start 01/18/19 at 17:00 Glucose (Glutose) 22.5 gm Q15M PRN PO DECREASED GLUCOSE; Start 01/18/19 at 17:00 Dextrose (D50w Syringe) 25 ml Q15M PRN IV DECREASED GLUCOSE; Start 01/18/19 at 17:00 Dextrose (D50w Syringe) 50 ml Q15M PRN IV DECREASED GLUCOSE; Start 01/18/19 at 17:00 Glucagon (Glucagen) 1 mg Q15M PRN IM DECREASED GLUCOSE; Start 01/18/19 at 17:00 Glucose (Glutose) 15 gm Q15M PRN BUCCAL DECREASED GLUCOSE; Start 01/18/19 at 17:00 Metoprolol Tartrate (Lopressor) 25 mg BID PO Last administered on 01/21/19at 22:01; Admin Dose 25 MG; Start 01/18/19 at 21:00 Lisinopril (Zestril) 10 mg BID PO Last administered on 01/21/19at 08:19; Admin Dose 10 MG; Start 01/18/19 at 21:00 Levalbuterol (Xopenex Neb) 0.63 mg Q4H RESP THERAPY PRN HHN SHORTNESS OF BREATH Last administered on 01/19/19at 03:03; Admin Dose 0.63 MG; Start 01/19/19 at 02:30 Ipratropium [place] (Atrovent 0.02% (Neb)) 0.5 mg Q4H RESP THERAPY PRN HHN SHORTNESS OF BREATH Last administered on 01/19/19at 03:03; Admin Dose 0.5 MG; Start 01/19/19 at 02:30 Enoxaparin Sodium (Lovenox) 40 mg DAILY SC Last administered on 01/22/19 08:43; Admin Dose 40 MG; Start 01/19/19 at 09:00 Clopidogrel Bisulfate (plaVIX) 75 mg DAILY PO Last administered on 01/22/19 08:07; Admin Dose 75 MG; Start 01/19/19 at 09:00 Diagnostic Test (Pha) (Accu-Chek) 1 ea 02 XX Last administered on 01/20/19at 02:39; Admin Dose 1 EA; Start 01/20/19 at 02:00 Insulin Aspart (Novolog Insulin Pen) NOVOLOG *MILD* ALGORITHM WITH MEALS BEDTIME SC Last administered on 01/21/19at 12:35; Admin Dose 1 UNIT; Start 01/19/19 at 21:00 Ertapenem 1 gm/ Sodium Chloride 100 ml @ 200 mls/hr Q24H IVPB Last administered on 01/21/19at 15:29; Admin Dose 200 MLS/HR; Start 01/20/19 at 14:30 Furosemide (Lasix) 40 mg DAILY IV Last administered on 01/22/19at 08:08; Admin Dose 40 MG; Start 01/20/19 at 15:30 GERRI VARELA [employer] L[employer] TECHNICIAN Jan 22, 2019 14:47
--- NOTE | 2019-01-22 15:00 | CONS ---
Assessment/Plan Assessment/Plan Assessment/Plan (Daily) CAD s/p Bypass surgery Ischemic cardiomyopathy Acute systolic Hypertension Dyslipidemia. Benign prostatic hypertrophy. Prostate carcinoma. Clinically and hemodynamically stable Continue Lopressor Continue lisinopril Continue ASA and Plavix Continue Lipitor Continue Lasix Consultation Date/Type/Reason Admit Date/Time Jan 15, 2019 at 01:24 Initial Consult Date 01/17/19 Type of Consult Cardiology Requesting Provider: NEFTALI LYNN Date/Time of Note DATE: 01/22/19 TIME: 15:00 Exam/Review of Systems Vital Signs Vitals Vital Signs Date Temp Pulse Resp B/P (MAP) Pulse Ox O2 O2 Flow FiO2 Time Delivery Rate 01/22/19 81 12:12 01/22/19 98.0 18 108/61 98 12:07 (77) 01/22/19 Nasal 2.0 08:30 Cannula 01/22/19 27 02:18 Intake and Output 01/21/19 01/21/19 01/22/19 1515:00 23:00 07:00 IntakeIntake Total 900 ml 440 ml OutputOutput Total 800 ml 300 ml BalanceBalance 100 ml 140 ml Exam Exam Constitutional: alert Head: normocephalic, atraumatic Respiratory: diminished breath sounds Cardiovascular: regular rate and rhythm (no m/r/g) Gastrointestinal: soft Extremities: normal pulses Labs Result Diagram: 01/22/19 0542 01/22/19 0542 Results 24hrs Laboratory Tests Test 01/21/19 17:39 01/21/19 22:09 01/22/19 05:42 01/22/19 07:52 Bedside Glucose 120 163 130 White Blood Count 9.6 Red Blood Count 3.10 L Hemoglobin 9.2 L Hematocrit 27.7 L Mean Corpuscular 89.4 Volume Mean Corpuscular 29.7 Hemoglobin Mean Corpuscular 33.2 Hemoglobin Concent Red Cell 14.7 H Distribution Width Platelet Count 277 # Mean Platelet Volume 10.5 H Immature 1.200 H Granulocytes % Neutrophils % 63.9 Lymphocytes % 18.5 Monocytes % 12.0 H Eosinophils % 4.1 Basophils % 0.3 Nucleated Red Blood 0.0 Cells % Immature 0.120 H Granulocytes # Neutrophils # 6.2 Lymphocytes # 1.8 Monocytes # 1.2 H Eosinophils # 0.4 Basophils # 0.0 Nucleated Red Blood 0.0 Cells # Sodium Level 137 Potassium Level 3.9 Chloride Level 99 Carbon Dioxide Level 31 Anion Gap 7 Blood Urea Nitrogen 33 H Creatinine 0.81 Est Glomerular Filtrat Rate mL/min Glucose Level 119 Calcium Level 8.2 L Phosphorus Level 3.2 Magnesium Level 2.1 Test 01/22/19 12:13 Bedside Glucose 131 Medications Medications Current Medications IV Flush (NS 3 ml) 3 ml PER PROTOCOL IV ; Start 01/15/19 at 01:30 Nitroglycerin (Nitroglycerin (Sl Tab) 0.4 Mg) 1 tab Q5M PRN SL .CHEST PAIN Last administered on 01/18/19at 23:22; Admin Dose 1 TAB; Start 01/15/19 at 01:30 Docusate Sodium (Colace) 100 mg Q12H PRN PO .CONSTIPATION; Start 01/15/19 at 01:30 Bisacodyl (Dulcolax) 5 mg DAILY PRN PO .CONSTIPATION; Start 01/15/19 at 01:30 Bicalutamide (Casodex) 50 mg DAILY PO Last administered on 01/22/19at 08:42; Admin Dose 50 MG; Start 01/16/19 at 09:00 Tamsulosin HCl (Flomax) 0.4 mg BID PO Last administered on 01/22/19at 08:07; Admin Dose 0.4 MG; Start 01/15/19 at 21:00 Terazosin HCl (Hytrin) 5 mg HS PO Last administered on 01/15/19at 20:43; Admin Dose 5 MG; Start 01/15/19 at 21:00; Status Hold Amlodipine Besylate (Norvasc) 10 mg DAILY PO ; Start 01/16/19 at 09:00; Status Hold Atorvastatin Calcium (Lipitor) 40 mg HS PO Last administered on 01/21/19at 22:00; Admin Dose 40 MG; Start 01/15/19 at 21:00 Nitroglycerin (Nitroglycerin 2% Oint) 0.5 inch Q8 TD Last administered on 01/16/19at 01:23; Admin Dose 0.5 INCH; Start 01/16/19 at 01:00; Status Hold Oxycodone/ Acetaminophen (Percocet (5/ 325)) 1 tab Q4H PRN PO PAIN; Start 01/16/19 at 11:00 Al Hydrox/Mg Hydrox/Simethicone (Mag-Al Plus) 30 ml Q4H PRN PO GASTROINTESTINAL UPSET; Start 01/16/19 at 11:00 Oxycodone/ Acetaminophen (Percocet (5/ 325)) 1 tab Q3H PRN PO PAIN LEVEL 1-5; Start 01/16/19 at 17:30 Oxycodone/ Acetaminophen (Percocet (5/ 325)) 2 tab Q3H PRN PO PAIN LEVEL 6-10 Last administered on 01/21/19at 00:49; Admin Dose 2 TAB; Start 01/16/19 at 17:30 Ondansetron HCl (Zofran Inj) 4 mg Q6H PRN IV NAUSEA AND/OR VOMITING; Start 01/16/19 at 17:30 Famotidine (Pepcid) 20 mg BID PO Last administered on 01/22/19at 08:07; Admin Dose 20 MG; Start 01/16/19 at 21:00 Aspirin (Aspirin) 325 mg DAILY PO Last administered on 01/22/19 08:06; Admin Dose 325 MG; Start 01/17/19 at 09:00 Acetaminophen (Tylenol Tab) 650 mg Q3H PRN PO ELEVATED TEMPERATURE Last adminis tered on 01/20/19at 01:17; Admin Dose 650 MG; Start 01/16/19 at 17:30 Potassium Chloride 50 ml @ 50 mls/hr SEE DIRECTION PRN IVPB K+ LEVEL Last administered on 01/17/19at 09:51; Admin Dose 50 MLS/HR; Start 01/16/19 at 17:30 Magnesium Sulfate/ Dextrose 100 ml @ 100 mls/hr PRN PRN IVPB PENDING LAB VALUE; Start 01/16/19 at 17:30 Albumin Human 250 ml @ 250 mls/hr PRN PRN IV CVP <10 Last administered on 01/17/19at 22:36; Admin Dose 250 MLS/HR; Start 01/17/19 at 01:00 Morphine Sulfate (morphine) 2 mg Q4H PRN IV SEVERE PAIN LEVEL 7-10 Last administered on 01/20/19at 17:59; Admin Dose 2 MG; Start 01/18/19 at 16:00 Miscellaneous Information 1 ea NOTE XX ; Start 01/18/19 at 17:00 Glucose (Glutose) 15 gm Q15M PRN PO DECREASED GLUCOSE; Start 01/18/19 at 17:00 Glucose (Glutose) 22.5 gm Q15M PRN PO DECREASED GLUCOSE; Start 01/18/19 at 17:00 Dextrose (D50w Syringe) 25 ml Q15M PRN IV DECREASED GLUCOSE; Start 01/18/19 at 17:00 Dextrose (D50w Syringe) 50 ml Q15M PRN IV DECREASED GLUCOSE; Start 01/18/19 at 17:00 Glucagon (Glucagen) 1 mg Q15M PRN IM DECREASED GLUCOSE; Start 01/18/19 at 17:00 Glucose (Glutose) 15 gm Q15M PRN BUCCAL DECREASED GLUCOSE; Start 01/18/19 at 17:00 Metoprolol Tartrate (Lopressor) 25 mg BID PO Last administered on 01/21/19at 22:01; Admin Dose 25 MG; Start 01/18/19 at 21:00 Lisinopril (Zestril) 10 mg BID PO Last administered on 01/21/19at 08:19; Admin Dose 10 MG; Start 01/18/19 at 21:00 Levalbuterol (Xopenex Neb) 0.63 mg Q4H RESP THERAPY PRN HHN SHORTNESS OF BREATH Last administered on 01/19/19at 03:03; Admin Dose 0.63 MG; Start 01/19/19 at 02:30 Ipratropium [place] (Atrovent 0.02% (Neb)) 0.5 mg Q4H RESP THERAPY PRN HHN SHORTNESS OF BREATH Last administered on 01/19/19at 03:03; Admin Dose 0.5 MG; Start 01/19/19 at 02:30 Enoxaparin Sodium (Lovenox) 40 mg DAILY SC Last administered on 01/22/19at 08:43; Admin Dose 40 MG; Start 01/19/19 at 09:00 Clopidogrel Bisulfate (plaVIX) 75 mg DAILY PO Last administered on 01/22/19 08:07; Admin Dose 75 MG; Start 01/19/19 at 09:00 Diagnostic Test (Pha) (Accu-Chek) 1 ea 02 XX Last administered on 01/20/19at 02:39; Admin Dose 1 EA; Start 01/20/19 at 02:00 Insulin Aspart (Novolog Insulin Pen) NOVOLOG *MILD* ALGORITHM WITH MEALS BEDTIME SC Last administered on 01/21/19 12:35; Admin Dose 1 UNIT; Start 01/19/19 at 21:00 Ertapenem 1 gm/ Sodium Chloride 100 ml @ 200 mls/hr Q24H IVPB Last administered on 01/21/19at 15:29; Admin Dose 200 MLS/HR; Start 01/20/19 at 14:30 Furosemide (Lasix) 40 mg DAILY IV Last administered on 01/22/19at 08:08; Admin Dose 40 MG; Start 01/20/19 at 15:30 FRED PATTEN M.D. Jan 22, 2019 15:00
[2019-01-22] MEDS: ERTAPENEM SODIUM 1 GM in SOD CHLORIDE 0.9% 100 ML IVPB SCH (15:02)
[2019-01-22] MEDS: ATORVASTATIN 40 MG TAB PO SCH (21:08)
[2019-01-23] VITALS (10 sets, daily range): BP systolic 94–111; BP diastolic 52–59; PULSE 71–87; RESP 18
--- NOTE | 2019-01-23 07:44 | PN ---
Date/Time of Note Date/Time of Note DATE: 01/23/19 TIME: 07:43 Assessment/Plan Lines/Catheters IV Catheter Type (from Nrsg): Peripheral IV Galvez in Place (from Nrsg): No Assessment/Plan Assessment/Plan s/p cabg gram negative sepsis ertrepenem iv overalll improving Subjective 24 Hr Interval Summary Constitutional: improved, ambulates Feeding: baseline diet Pain Control: well controlled Exam/Review of Systems Vital Signs Vitals Vital Signs Date Temp Pulse Resp B/P (MAP) Pulse Ox O2 O2 Flow FiO2 Time Delivery Rate 01/23/19 98.3 82 18 111/59 98 07:36 (76) 01/23/19 Nasal 04:00 Cannula 01/23/19 2.0 03:17 01/22/19 27 02:18 Intake and Output 01/22/19 01/22/19 01/23/19 1515:00 23:00 07:00 IntakeIntake Total 700 ml 440 ml OutputOutput Total 775 ml BalanceBalance -75 ml 440 ml Exam Constitutional: alert, well developed Psych: no complaints Head: atraumatic Eyes: EOMI ENMT: nl nasal mucosa & septum Neck: supple Respiratory: normal air movement Cardiovascular: regular rate and rhythm Musculoskeletal: other (healing left venectomy site) Results Result Diagram: 01/23/19 0609 01/23/19 0609 SOPHIE SHETH MD Jan 23, 2019 07:44
[2019-01-23] MEDS: INSULIN ASPART [NOVOLOG] 3 ML PEN SC SCH ×4 (07:51→20:54)
[2019-01-23] MEDS: TAMSULOSIN (SR) 0.4 MG CAP PO SCH ×2 (09:06→20:38)
[2019-01-23] MEDS: ASPIRIN 325 MG TAB PO SCH (09:06)
[2019-01-23] MEDS: CLOPIDOGREL 75 MG TAB PO SCH (09:06)
[2019-01-23] MEDS: FAMOTIDINE 20 MG TAB PO SCH ×2 (09:06→20:38)
[2019-01-23] MEDS: METOPROLOL 25 MG TAB PO SCH ×2 (09:07→20:38)
[2019-01-23] MEDS: LISINOPRIL 10 MG TAB PO SCH ×2 (09:07→20:38)
[2019-01-23] MEDS: FUROSEMIDE 40 MG INJ IV SCH (09:07)
[2019-01-23] MEDS: BICALUTAMIDE 50 MG TAB PO SCH (09:24)
[2019-01-23] MEDS: ENOXAPARIN 40 MG/0.4 ML SYG SC SCH (09:24)
--- NOTE | 2019-01-23 11:25 | PN ---
Date/Time of Note Date/Time of Note DATE: 01/23/19 TIME: 11:21 Objective Vitals Vital Signs Date Temp Pulse Resp B/P (MAP) Pulse Ox O2 O2 Flow FiO2 Time Delivery Rate 01/23/19 79 08:29 01/23/19 Nasal 2.0 07:51 Cannula 01/23/19 98.3 18 111/59 98 07:36 (76) 01/22/19 27 02:18 Intake and Output 01/22/19 01/22/19 01/23/19 1515:00 23:00 07:00 IntakeIntake Total 700 ml 440 ml OutputOutput Total 775 ml BalanceBalance -75 ml 440 ml Results Result Diagram: 01/23/19 0609 01/23/19 0609 Medications Medications Current Medications IV Flush (NS 3 ml) 3 ml PER PROTOCOL IV ; Start 01/15/19 at 01:30 Nitroglycerin (Nitroglycerin (Sl Tab) 0.4 Mg) 1 tab Q5M PRN SL .CHEST PAIN Last administered on 01/18/19at 23:22; Admin Dose 1 TAB; Start 01/15/19 at 01:30 Docusate Sodium (Colace) 100 mg Q12H PRN PO .CONSTIPATION; Start 01/15/19 at 01:30 Bisacodyl (Dulcolax) 5 mg DAILY PRN PO .CONSTIPATION; Start 01/15/19 at 01:30 Bicalutamide (Casodex) 50 mg DAILY PO Last administered on 01/23/19at 09:24; Admin Dose 50 MG; Start 01/16/19 at 09:00 Tamsulosin HCl (Flomax) 0.4 mg BID PO Last administered on 01/23/19at 09:06; Admin Dose 0.4 MG; Start 01/15/19 at 21:00 Terazosin HCl (Hytrin) 5 mg HS PO Last administered on 01/15/19at 20:43; Admin Dose 5 MG; Start 01/15/19 at 21:00; Status Hold Amlodipine Besylate (Norvasc) 10 mg DAILY PO ; Start 01/16/19 at 09:00; Status Hold Atorvastatin Calcium (Lipitor) 40 mg HS PO Last administered on 01/22/19at 21:08; Admin Dose 40 MG; Start 01/15/19 at 21:00 Nitroglycerin (Nitroglycerin 2% Oint) 0.5 inch Q8 TD Last administered on 01/16/19at 01:23; Admin Dose 0.5 INCH; Start 01/16/19 at 01:00; Status Hold Oxycodone/ Acetaminophen (Percocet (5/ 325)) 1 tab Q4H PRN PO PAIN; Start 01/16/19 at 11:00 Al Hydrox/Mg Hydrox/Simethicone (Mag-Al Plus) 30 ml Q4H PRN PO GASTROINTESTINAL UPSET; Start 01/16/19 at 11:00 Oxycodone/ Acetaminophen (Percocet (5/ 325)) 1 tab Q3H PRN PO PAIN LEVEL 1-5; Start 01/16/19 at 17:30 Oxycodone/ Acetaminophen (Percocet (5/ 325)) 2 tab Q3H PRN PO PAIN LEVEL 6-10 Last administered on 01/21/19at 00:49; Admin Dose 2 TAB; Start 01/16/19 at 17:30 Ondansetron HCl (Zofran Inj) 4 mg Q6H PRN IV NAUSEA AND/OR VOMITING; Start 01/16/19 at 17:30 Famotidine (Pepcid) 20 mg BID PO Last administered on 01/23/19 09:06; Admin Dose 20 MG; Start 01/16/19 at 21:00 Aspirin (Aspirin) 325 mg DAILY PO Last administered on 01/23/19 09:06; Admin Dose 325 MG; Start 01/17/19 at 09:00 Acetaminophen (Tylenol Tab) 650 mg Q3H PRN PO ELEVATED TEMPERATURE Last administered on 01/20/19at 01:17; Admin Dose 650 MG; Start 01/16/19 at 17:30 Potassium Chloride 50 ml @ 50 mls/hr SEE DIRECTION PRN IVPB K+ LEVEL Last administered on 01/17/19at 09:51; Admin Dose 50 MLS/HR; Start 01/16/19 at 17:30 Magnesium Sulfate/ Dextrose 100 ml @ 100 mls/hr PRN PRN IVPB PENDING LAB VALUE; Start 01/16/19 at 17:30 Albumin Human 250 ml @ 250 mls/hr PRN PRN IV CVP <10 Last administered on 01/17/19at 22:36; Admin Dose 250 MLS/HR; Start 01/17/19 at 01:00 Morphine Sulfate (morphine) 2 mg Q4H PRN IV SEVERE PAIN LEVEL 7-10 Last administered on 01/20/19at 17:59; Admin Dose 2 MG; Start 01/18/19 at 16:00 Miscellaneous Information 1 ea NOTE XX ; Start 01/18/19 at 17:00 Glucose (Glutose) 15 gm Q15M PRN PO DECREASED GLUCOSE; Start 01/18/19 at 17:00 Glucose (Glutose) 22.5 gm Q15M PRN PO DECREASED GLUCOSE; Start 01/18/19 at 17:00 Dextrose (D50w Syringe) 25 ml Q15M PRN IV DECREASED GLUCOSE; Start 01/18/19 at 17:00 Dextrose (D50w Syringe) 50 ml Q15M PRN IV DECREASED GLUCOSE; Start 01/18/19 at 17:00 Glucagon (Glucagen) 1 mg Q15M PRN IM DECREASED GLUCOSE; Start 01/18/19 at 17:00 Glucose (Glutose) 15 gm Q15M PRN BUCCAL DECREASED GLUCOSE; Start 01/18/19 at 17:00 Metoprolol Tartrate (Lopressor) 25 mg BID PO Last administered on 01/23/19at 09:07; Admin Dose 25 MG; Start 01/18/19 at 21:00 Lisinopril (Zestril) 10 mg BID PO Last administered on 01/23/19 09:07; Admin Dose 10 MG; Start 01/18/19 at 21:00 Levalbuterol (Xopenex Neb) 0.63 mg Q4H RESP THERAPY PRN HHN SHORTNESS OF BREATH Last administered on 01/19/19at 03:03; Admin Dose 0.63 MG; Start 01/19/19 at 02:30 Ipratropium [place] (Atrovent 0.02% (Neb)) 0.5 mg Q4H RESP THERAPY PRN HHN SHORTNESS OF BREATH Last administered on 01/19/19at 03:03; Admin Dose 0.5 MG; Start 01/19/19 at 02:30 Enoxaparin Sodium (Lovenox) 40 mg DAILY SC Last administered on 01/23/19 09:24; Admin Dose 40 MG; Start 01/19/19 at 09:00 Clopidogrel Bisulfate (plaVIX) 75 mg DAILY PO Last administered on 4/15/19at 09:06; Admin Dose 75 MG; Start 01/19/19 at 09:00 Diagnostic Test (Pha) (Accu-Chek) 1 ea 02 XX Last administered on 01/20/19at 02:39; Admin Dose 1 EA; Start 01/20/19 at 02:00 Insulin Aspart (Novolog Insulin Pen) NOVOLOG *MILD* ALGORITHM WITH MEALS BEDTIME SC Last administered on 01/21/19 12:35; Admin Dose 1 UNIT; Start 01/19/19 at 21:00 Ertapenem 1 gm/ Sodium Chloride 100 ml @ 200 mls/hr Q24H IVPB Last administered on 01/22/19 15:02; Admin Dose 200 MLS/HR; Start 01/20/19 at 14:30 Furosemide (Lasix) 40 mg DAILY IV Last administered on 01/23/19 09:07; Admin Dose 40 MG; Start 01/20/19 at 15:30 VTE Prophylaxis Risk score (from [facility])>0 risk: 18 SCD applied (from [facility]): No SCD contraindication: other Lines/Catheters IV Catheter Type: Galvez in Place: No Assessment/Plan Hospital Course Subjective Patient alert and oriented, doing well, however still has frequent urination Objective Physical exam General: Patient is laying in bed and answering questions appropriately Mentation: Patient is alert and oriented Head: Normocephalic atraumatic Eyes: EOMI, pupils reactive to light Neck: Supple, nontender, midline Respiratory: Coarse to auscultation bilaterally Cardiovascular: regular rate, no obvious murmurs Gastrointestinal: non-tender to palpation, bowel sounds heard. Neurological: Able to move all extremities Skin: No new skin lesions A/P Non-ST elevation FL, status post left heart cath and now multivessel intervention with open heart surgery done January 16, 2019, -Continue pressors and other medications per cardiology and cardiothoracic surgeon, titrate off Skinny-Synephrine as tolerated - ECHO from November 2018 shows an ejection fraction of roughly 35-40% with diastolic dysfunction. -Patient doing well on oral meds, however still on IV Lasix, will need to recheck to cardiology to see if we can transition him over to a p.o. dose Sepsis secondary to UTI - UA results noted. Will await urine cultures for sensitivities - Continue current antibiotic - may be catheter related given had one in place for 2 months -ID consulted Bacteremia -Gram-negative david, possible UTI source, infectious disease consulted, continue IV antibiotic Urinary retention -Acute on chronic -Patient able to urinate without Galvez however it is frequent and small amounts -Bladder scan done, post void residual was around 160, still within safe parameters, will continue allowing patient to urinate, this is likely secondary to patient not being on his terazosin which I am reluctant to start currently as he just had a recent CABG, will consider starting later when safe and okay by ca rdiologist. Pleural effusions -Pulmonology on board -Chest physiotherapy ordered -Chest x-ray showing possible pleural effusion, spoke with pulmonology, will obtain repeat chest x-ray tomorrow, if positive may consider ordering thoracentesis tomorrow, continue diuretics for now. H/o Prostate cancer - follows with [facility] -Patient received Lupron Depo injection before admission -Continue other med HTN - continue meds per cardiology CM - continue meds per cardiology Disposition -Cardiothoracic and cardiology recommendations appreciated -Transition Lasix to IV to oral, ARU eval, if stable on oral lasix and okay with cardiology to transfer to ARU tomorrow PONCHO PEREYRA Jan 23, 2019 11:25
--- NOTE | 2019-01-23 14:21 | CONS ---
Assessment/Plan Assessment/Plan Hospital Course (Demo Recall) IMPRESSION: 1. Non-ST myocardial infarction with up trending cardiac enzymes.-overnight and then this am patient with uptrending cardiac enzymes. Now s/p LHC with mutivessel CAD and enmergent echo with decreased EF 30-35%. Now post-op day #2 s/p cabg x 4(ENRIQUEZ-LAD, SVG-PDA, SVG-OM, SVG-Ramus) 2. Chest pain secondary to #1.-ongoing 3. Abnormal electrocardiogram with anterolateral deep ST depressions. 4. Hypertension-currently borderline hypotension 5. Dyslipidemia. 6. Benign prostatic hypertrophy. 7. Prostate carcinoma. 8. History of hematuria recently. 9. CHF-systolic acute Recc: -ICU -s/p extubation -Continue asa/statin/plavix -Continue BB/ACEI -follow volume status closely on daily gentle lasix diuresis -Continue abx's and f/u cx data Consultation Date/Type/Reason Admit Date/Time Jan 15, 2019 at 01:24 Initial Consult Date 01/15/19 Type of Consult Cardiology Reason for Consultation cad s/p cabg Requesting Provider: NEFTALI LYNN Date/Time of Note DATE: 01/23/19 TIME: 14:19 Exam/Review of Systems Vital Signs Vitals Vital Signs Date Temp Pulse Resp B/P (MAP) Pulse Ox O2 O2 Flow FiO2 Time Delivery Rate 01/23/19 Nasal 2.0 13:24 Cannula 01/23/19 84 12:53 01/23/19 98.0 18 94/52 (66) 96 12:08 01/22/19 27 02:18 Intake and Output 01/22/19 01/22/19 01/23/19 1515:00 23:00 07:00 IntakeIntake Total 700 ml 440 ml OutputOutput Total 775 ml BalanceBalance -75 ml 440 ml Exam Exam Review of Systems: CONSTITUTIONAL: No fevers, chills. PULMONARY: No sob CARDIOVASCULAR: No chest pain/palpitations GASTROINTESTINAL: No nausea/vomiting. GENITOURINARY: No hematuria/dysuria. MUSCULOSKELETAL: No myagias/arthalgias. PSYCHIATRIC: The patient denies depression. NEUROLOGIC: No weakness Constitutional: alert Psych: no complaints Head: normocephalic ENMT: mucosa pink and moist Neck: supple, jvd (9 cm water) Respiratory: diminished breath sounds (at bases/B) Cardiovascular: regular rate and rhythm Gastrointestinal: soft, non-tender Musculoskeletal: muscle tone (normal) Extremities: edema (none) Labs Result Diagram: 01/23/19 0609 01/23/19 0609 Results 24hrs Laboratory Tests Test 01/22/19 17:17 01/22/19 21:14 01/23/19 06:09 01/23/19 07:32 Bedside Glucose 100 135 127 White Blood Count 10.4 Red Blood Count 3.16 L Hemoglobin 9.3 L Hematocrit 28.3 L Mean Corpuscular 89.6 Volume Mean Corpuscular 29.4 Hemoglobin Mean Corpuscular 32.9 Hemoglobin Concent Red Cell 14.7 H Distribution Width Platelet Count 336 # Mean Platelet Volume 10.3 Immature 1.700 H Granulocytes % Neutrophils % 65.3 Lymphocytes % 17.0 Monocytes % 11.5 H Eosinophils % 4.0 Basophils % 0.5 Nucleated Red Blood 0.0 Cells % Immature 0.180 H Granulocytes # Neutrophils # 6.8 Lymphocytes # 1.8 Monocytes # 1.2 H Eosinophils # 0.4 Basophils # 0.1 Nucleated Red Blood 0.0 Cells # Sodium Level 139 Potassium Level 3.9 Chloride Level 99 Carbon Dioxide Level 32 H Anion Gap 8 Blood Urea Nitrogen 32 H Creatinine 0.80 Est Glomerular Filtrat Rate mL/min Glucose Level 121 Calcium Level 8.3 L Phosphorus Level 3.3 Magnesium Level 2.3 Test 01/23/19 12:07 Bedside Glucose 129 Medications Medications Current Medications IV Flush (NS 3 ml) 3 ml PER PROTOCOL IV ; Start 01/15/19 at 01:30 Nitroglycerin (Nitroglycerin (Sl Tab) 0.4 Mg) 1 tab Q5M PRN SL .CHEST PAIN Last administered on 01/18/19at 23:22; Admin Dose 1 TAB; Start 01/15/19 at 01:30 Docusate Sodium (Colace) 100 mg Q12H PRN PO .CONSTIPATION; Start 01/15/19 at 01:30 Bisacodyl (Dulcolax) 5 mg DAILY PRN PO .CONSTIPATION; Start 01/15/19 at 01:30 Bicalutamide (Casodex) 50 mg DAILY PO Last administered on 01/23/19at 09:24; Admin Dose 50 MG; Start 01/16/19 at 09:00 Tamsulosin HCl (Flomax) 0.4 mg BID PO Last administered on 01/23/19 09:06; Admin Dose 0.4 MG; Start 01/15/19 at 21:00 Terazosin HCl (Hytrin) 5 mg HS PO Last administered on 01/15/19at 20:43; Admin Dose 5 MG; Start 01/15/19 at 21:00; Status Hold Amlodipine Besylate (Norvasc) 10 mg DAILY PO ; Start 01/16/19 at 09:00; Status Hold Atorvastatin Calcium (Lipitor) 40 mg HS PO Last administered on 01/22/19at 21:08; Admin Dose 40 MG; Start 01/15/19 at 21:00 Nitroglycerin (Nitroglycerin 2% Oint) 0.5 inch Q8 TD Last administered on 01/16/19at 01:23; Admin Dose 0.5 INCH; Start 01/16/19 at 01:00; Status Hold Oxycodone/ Acetaminophen (Percocet (5/ 325)) 1 tab Q4H PRN PO PAIN; Start 01/16/19 at 11:00 Al Hydrox/Mg Hydrox/Simethicone (Mag-Al Plus) 30 ml Q4H PRN PO GASTROINTESTINAL UPSET; Start 01/16/19 at 11:00 Oxycodone/ Acetaminophen (Percocet (5/ 325)) 1 tab Q3H PRN PO PAIN LEVEL 1-5; Start 01/16/19 at 17:30 Oxycodone/ Acetaminophen (Percocet (5/ 325)) 2 tab Q3H PRN PO PAIN LEVEL 6-10 Last administered on 01/21/19at 00:49; Admin Dose 2 TAB; Start 01/16/19 at 17:30 Ondansetron HCl (Zofran Inj) 4 mg Q6H PRN IV NAUSEA AND/OR VOMITING; Start 01/16/19 at 17:30 Famotidine (Pepcid) 20 mg BID PO Last administered on 01/23/19at 09:06; Admin Dose 20 MG; Start 01/16/19 at 21:00 Aspirin (Aspirin) 325 mg DAILY PO Last administered on 01/23/19at 09:06; Admin Dose 325 MG; Start 01/17/19 at 09:00 Acetaminophen (Tylenol Tab) 650 mg Q3H PRN PO ELEVATED TEMPERATURE Last administered on 01/20/19at 01:17; Admin Dose 650 MG; Start 01/16/19 at 17:30 Potassium Chloride 50 ml @ 50 mls/hr SEE DIRECTION PRN IVPB K+ LEVEL Last administered on 01/17/19at 09:51; Admin Dose 50 MLS/HR; Start 01/16/19 at 17:30 Magnesium Sulfate/ Dextrose 100 ml @ 100 mls/hr PRN PRN IVPB PENDING LAB VALUE; Start 01/16/19 at 17:30 Albumin Human 250 ml @ 250 mls/hr PRN PRN IV CVP <10 Last administered on 01/17/19at 22:36; Admin Dose 250 MLS/HR; Start 01/17/19 at 01:00 Morphine Sulfate (morphine) 2 mg Q4H PRN IV SEVERE PAIN LEVEL 7-10 Last administered on 01/20/19at 17:59; Admin Dose 2 MG; Start 01/18/19 at 16:00 Miscellaneous Information 1 ea NOTE XX ; Start 01/18/19 at 17:00 Glucose (Glutose) 15 gm Q15M PRN PO DECREASED GLUCOSE; Start 01/18/19 at 17:00 Glucose (Glutose) 22.5 gm Q15M PRN PO DECREASED GLUCOSE; Start 01/18/19 at 17:00 Dextrose (D50w Syringe) 25 ml Q15M PRN IV DECREASED GLUCOSE; Start 01/18/19 at 17:00 Dextrose (D50w Syringe) 50 ml Q15M PRN IV DECREASED GLUCOSE; Start 01/18/19 at 17:00 Glucagon (Glucagen) 1 mg Q15M PRN IM DECREASED GLUCOSE; Start 01/18/19 at 17:00 Glucose (Glutose) 15 gm Q15M PRN BUCCAL DECREASED GLUCOSE; Start 01/18/19 at 17:00 Metoprolol Tartrate (Lopressor) 25 mg BID PO Last administered on 01/23/19at 09:07; Admin Dose 25 MG; Start 01/18/19 at 21:00 Lisinopril (Zestril) 10 mg BID PO Last administered on 01/23/19at 09:07; Admin Dose 10 MG; Start 01/18/19 at 21:00 Levalbuterol (Xopenex Neb) 0.63 mg Q4H RESP THERAPY PRN HHN SHORTNESS OF BREATH Last administered on 01/19/19 03:03; Admin Dose 0.63 MG; Start 01/19/19 at 02:30 Ipratropium [place] (Atrovent 0.02% (Neb)) 0.5 mg Q4H RESP THERAPY PRN HHN SHORTNESS OF BREATH Last administered on 01/19/19 03:03; Admin Dose 0.5 MG; Start 01/19/19 at 02:30 Enoxaparin Sodium (Lovenox) 40 mg DAILY SC Last administered on 01/23/19 09:24; Admin Dose 40 MG; Start 01/19/19 at 09:00 Clopidogrel Bisulfate (plaVIX) 75 mg DAILY PO Last administered on 01/23/19 09:06; Admin Dose 75 MG; Start 01/19/19 at 09:00 Diagnostic Test (Pha) (Accu-Chek) 1 ea 02 XX Last administered on 01/20/19 02:39; Admin Dose 1 EA; Start 01/20/19 at 02:00 Insulin Aspart (Novolog Insulin Pen) NOVOLOG *MILD* ALGORITHM WITH MEALS BEDTIME SC Last administered on 01/21/19 12:35; Admin Dose 1 UNIT; Start 01/19/19 at 21:00 Ertapenem 1 gm/ Sodium Chloride 100 ml @ 200 mls/hr Q24H IVPB Last administered on 01/22/19 15:02; Admin Dose 200 MLS/HR; Start 01/20/19 at 14:30 Furosemide (Lasix) 40 mg DAILY IV Last administered on 01/23/19 09:07; Admin Dose 40 MG; Start 01/20/19 at 15:30 NEFTALI LYNN Jan 23, 2019 14:20
[2019-01-23] MEDS: ERTAPENEM SODIUM 1 GM in SOD CHLORIDE 0.9% 100 ML IVPB SCH (14:48)
--- NOTE | 2019-01-23 14:55 | CONS ---
Consult Date/Type/Reason Admit Date/Time Jan 15, 2019 at 01:24 Initial Consult Date 01/17/19 Type of Consult Pulmonary Requesting Provider: NEFTALI LYNN Date/Time of Note DATE: 01/23/19 TIME: 14:55 Subjective Slowly improving no respiratory distress. Continues 2 L nasal cannula ambulating slowly. Objective Vital Signs Date Temp Pulse Resp B/P (MAP) Pulse Ox O2 O2 Flow FiO2 Time Delivery Rate 01/23/19 Nasal 2.0 13:24 Cannula 01/23/19 84 12:53 01/23/19 98.0 18 94/52 (66) 96 12:08 01/22/19 27 02:18 Intake and Output 01/22/19 01/22/19 01/23/19 1515:00 23:00 07:00 IntakeIntake Total 700 ml 440 ml OutputOutput Total 775 ml BalanceBalance -75 ml 440 ml Exam GENERAL: Well-nourished well-developed gentleman comfortable at rest VITAL SIGNS: per chart NECK: Supple. No JVD or lymphadenopathy. CARDIAC EXAM: S1, S2. No added sounds or murmurs. CHEST: Diminished air entry at bases ABDOMEN: Soft, nontender. No guarding or rebound. EXTREMITIES: No cyanosis, clubbing or edema. NEUROLOGIC: Generalized weakness. No focal deficits. Vent Setting Ventilator Support Mode: CPAP, PS Fraction of Inspired Oxygen pe: 27 Positive End Expiratory Pressu: 5.0 Results/Medications Result Diagram: 01/23/19 0609 01/23/19 0609 Results 24 hrs Laboratory Tests Test 01/22/19 17:17 01/22/19 21:14 01/23/19 06:09 01/23/19 07:32 Bedside Glucose 100 135 127 White Blood Count 10.4 Red Blood Count 3.16 L Hemoglobin 9.3 L Hematocrit 28.3 L Mean Corpuscular 89.6 Volume Mean Corpuscular 29.4 Hemoglobin Mean Corpuscular 32.9 Hemoglobin Concent Red Cell 14.7 H Distribution Width Platelet Count 336 # Mean Platelet Volume 10.3 Immature 1.700 H Granulocytes % Neutrophils % 65.3 Lymphocytes % 17.0 Monocytes % 11.5 H Eosinophils % 4.0 Basophils % 0.5 Nucleated Red Blood 0.0 Cells % Immature 0.180 H Granulocytes # Neutrophils # 6.8 Lymphocytes # 1.8 Monocytes # 1.2 H Eosinophils # 0.4 Basophils # 0.1 Nucleated Red Blood 0.0 Cells # Sodium Level 139 Potassium Level 3.9 Chloride Level 99 Carbon Dioxide Level 32 H Anion Gap 8 Blood Urea Nitrogen 32 H Creatinine 0.80 Est Glomerular Filtrat Rate mL/min Glucose Level 121 Calcium Level 8.3 L Phosphorus Level 3.3 Magnesium Level 2.3 Test 01/23/19 12:07 Bedside Glucose 129 Medications Current Medications IV Flush (NS 3 ml) 3 ml PER PROTOCOL IV ; Start 01/15/19 at 01:30 Nitroglycerin (Nitroglycerin (Sl Tab) 0.4 Mg) 1 tab Q5M PRN SL .CHEST PAIN Last administered on 01/18/19at 23:22; Admin Dose 1 TAB; Start 01/15/19 at 01:30 Docusate Sodium (Colace) 100 mg Q12H PRN PO .CONSTIPATION; Start 01/15/19 at 01:30 Bisacodyl (Dulcolax) 5 mg DAILY PRN PO .CONSTIPATION; Start 01/15/19 at 01:30 Bicalutamide (Casodex) 50 mg DAILY PO Last administered on 01/23/19at 09:24; Admin Dose 50 MG; Start 01/16/19 at 09:00 Tamsulosin HCl (Flomax) 0.4 mg BID PO Last administered on 01/23/19at 09:06; Admin Dose 0.4 MG; Start 01/15/19 at 21:00 Terazosin HCl (Hytrin) 5 mg HS PO Last administered on 01/15/19at 20:43; Admin Dose 5 MG; Start 01/15/19 at 21:00; Status Hold Amlodipine Besylate (Norvasc) 10 mg DAILY PO ; Start 01/16/19 at 09:00; Status Hold Atorvastatin Calcium (Lipitor) 40 mg HS PO Last administered on 01/22/19at 21:08; Admin Dose 40 MG; Start 01/15/19 at 21:00 Nitroglycerin (Nitroglycerin 2% Oint) 0.5 inch Q8 TD Last administered on 01/16/19at 01:23; Admin Dose 0.5 INCH; Start 01/16/19 at 01:00; Status Hold Oxycodone/ Acetaminophen (Percocet (5/ 325)) 1 tab Q4H PRN PO PAIN; Start 01/16/19 at 11:00 Al Hydrox/Mg Hydrox/Simethicone (Mag-Al Plus) 30 ml Q4H PRN PO GASTROINTESTINAL UPSET; Start 01/16/19 at 11:00 Oxycodone/ Acetaminophen (Percocet (5/ 325)) 1 tab Q3H PRN PO PAIN LEVEL 1-5; Start 01/16/19 at 17:30 Oxycodone/ Acetaminophen (Percocet (5/ 325)) 2 tab Q3H PRN PO PAIN LEVEL 6-10 Last administered on 01/21/19at 00:49; Admin Dose 2 TAB; Start 01/16/19 at 17:30 Ondansetron HCl (Zofran Inj) 4 mg Q6H PRN IV NAUSEA AND/OR VOMITING; Start 01/16 at 17:30 Famotidine (Pepcid) 20 mg BID PO Last administered on 01/23/19 09:06; Admin Dose 20 MG; Start 01/16/19 at 21:00 Aspirin (Aspirin) 325 mg DAILY PO Last administered on 01/23/19at 09:06; Admin Dose 325 MG; Start 01/17/19 at 09:00 Acetaminophen (Tylenol Tab) 650 mg Q3H PRN PO ELEVATED TEMPERATURE Last administered on 01/20/19at 01:17; Admin Dose 650 MG; Start 01/16/19 at 17:30 Potassium Chloride 50 ml @ 50 mls/hr SEE DIRECTION PRN IVPB K+ LEVEL Last administered on 01/17/19at 09:51; Admin Dose 50 MLS/HR; Start 01/16/19 at 17:30 Magnesium Sulfate/ Dextrose 100 ml @ 100 mls/hr PRN PRN IVPB PENDING LAB VALUE; Start 01/16/19 at 17:30 Albumin Human 250 ml @ 250 mls/hr PRN PRN IV CVP <10 Last administered on 01/17/19at 22:36; Admin Dose 250 MLS/HR; Start 01/17/19 at 01:00 Morphine Sulfate (morphine) 2 mg Q4H PRN IV SEVERE PAIN LEVEL 7-10 Last administered on 01/20/19at 17:59; Admin Dose 2 MG; Start 01/18/19 at 16:00 Miscellaneous Information 1 ea NOTE XX ; Start 01/18/19 at 17:00 Glucose (Glutose) 15 gm Q15M PRN PO DECREASED GLUCOSE; Start 01/18/19 at 17:00 Glucose (Glutose) 22.5 gm Q15M PRN PO DECREASED GLUCOSE; Start 01/18/19 at 17:00 Dextrose (D50w Syringe) 25 ml Q15M PRN IV DECREASED GLUCOSE; Start 01/18/19 at 17:00 Dextrose (D50w Syringe) 50 ml Q15M PRN IV DECREASED GLUCOSE; Start 01/18/19 at 17:00 Glucagon (Glucagen) 1 mg Q15M PRN IM DECREASED GLUCOSE; Start 01/18/19 at 17:00 Glucose (Glutose) 15 gm Q15M PRN BUCCAL DECREASED GLUCOSE; Start 01/18/19 at 17:00 Metoprolol Tartrate (Lopressor) 25 mg BID PO Last administered on 01/23/19at 09:07; Admin Dose 25 MG; Start 01/18/19 at 21:00 Lisinopril (Zestril) 10 mg BID PO Last administered on 01/23/19 09:07; Admin D ose 10 MG; Start 01/18/19 at 21:00 Levalbuterol (Xopenex Neb) 0.63 mg Q4H RESP THERAPY PRN HHN SHORTNESS OF BREATH Last administered on 01/19/19at 03:03; Admin Dose 0.63 MG; Start 01/19/19 at 02:30 Ipratropium [place] (Atrovent 0.02% (Neb)) 0.5 mg Q4H RESP THERAPY PRN HHN SHORTNESS OF BREATH Last administered on 01/19/19at 03:03; Admin Dose 0.5 MG; Start 01/19/19 at 02:30 Enoxaparin Sodium (Lovenox) 40 mg DAILY SC Last administered on 01/23/19at 09:24; Admin Dose 40 MG; Start 01/19/19 at 09:00 Clopidogrel Bisulfate (plaVIX) 75 mg DAILY PO Last administered on 01/23/19at 09:06; Admin Dose 75 MG; Start 01/19/19 at 09:00 Diagnostic Test (Pha) (Accu-Chek) 1 ea 02 XX Last administered on 01/20/19at 02:39; Admin Dose 1 EA; Start 01/20/19 at 02:00 Insulin Aspart (Novolog Insulin Pen) NOVOLOG *MILD* ALGORITHM WITH MEALS BEDTIME SC Last administered on 01/21/19at 12:35; Admin Dose 1 UNIT; Start 01/19/19 at 21:00 Ertapenem 1 gm/ Sodium Chloride 100 ml @ 200 mls/hr Q24H IVPB Last administered on 01/23/19at 14:48; Admin Dose 200 MLS/HR; Start 01/20/19 at 14:30 Furosemide (Lasix) 40 mg DAILY IV Last administered on 01/23/19at 09:07; Admin Dose 40 MG; Start 01/20/19 at 15:30 Assessment/Plan Hospital Course (Demo Recall) assessment 1. Coronary artery disease status post acute coronary artery bypass graft surgery 2. Status post shock likely combination of cardiogenic and septic. 3. Chest CT demonstrates moderate right pleural effusion. Repeat chest x-ray shows small to moderate right pleural effusion. 4. Improved acute hypoxemic respiratory failure 5. History of prostate cancer Plan 1. Incentive spirometry and chest PT 2. Encourage out of bed 3. Aspiration precautions [facility] evaluation [facility] Jan 23, 2019 14:55
--- NOTE | 2019-01-23 15:08 | CONS ---
Assessment/Plan Assessment/Plan Hospital Course (Demo Recall) Patient is alert feels good denies pain no fevers overnight. No nausea vomiting diarrhea, no dysuria WBC 10.4 platelets 336 neutrophils 65.3 BUN 32 creatinine 0.80 Antimicrobials: Invanz Microbiology: Blood culture on admission grew Citrobacter freundii, repeat blood cultures negative sputum culture pending urine culture negative Physical examination: Well-developed well-nourished elderly man who is alert, in no distress. Head atraumatic normocephalic sclera nonicteric. Neck is supple chest rise symmetrical breath sounds CTA. Heart: S1-S2. Abdomen soft, BT active. Extremities without cyanosis. Assessment: 1. S/p septic shock, possibly also cardiogenic 2. Gram-negative david bacteremia likely secondary to UTI 3. Pulmonary edema with superimposed pneumonia, possible aspiration 3. Acute MO status post emergency CABG 01/16/19 4. History of prostate cancer 5. History of hypertension 6. Acute anemia Plan: Doing well, change antibiotics to oral Levaquin to complete 5 more days Consultation Date/Type/Reason Admit Date/Time Jan 15, 2019 at 01:24 Initial Consult Date 01/17/19 Type of Consult id Requesting Provider: NEFTALI LYNN Date/Time of Note DATE: 01/23/19 TIME: 15:07 Exam/Review of Systems Exam Vitals Vital Signs Date Temp Pulse Resp B/P (MAP) Pulse Ox O2 O2 Flow FiO2 Time Delivery Rate 01/23/19 Nasal 2.0 13:24 Cannula 01/23/19 84 12:53 01/23/19 98.0 18 94/52 (66) 96 12:08 01/22/19 27 02:18 Intake and Output 01/22/19 01/22/19 01/23/19 1515:00 23:00 07:00 IntakeIntake Total 700 ml 440 ml OutputOutput Total 775 ml BalanceBalance -75 ml 440 ml Results Result Diagram: 01/23/19 0609 01/23/19 0609 Results 24hrs Laboratory Tests Test 01/22/19 17:17 01/22/19 21:14 01/23/19 06:09 01/23/19 07:32 Bedside Glucose 100 135 127 White Blood Count 10.4 Red Blood Count 3.16 L Hemoglobin 9.3 L Hematocrit 28.3 L Mean Corpuscular 89.6 Volume Mean Corpuscular 29.4 Hemoglobin Mean Corpuscular 32.9 Hemoglobin Concent Red Cell 14.7 H Distribution Width Platelet Count 336 # Mean Platelet Volume 10.3 Immature 1.700 H Granulocytes % Neutrophils % 65.3 Lymphocytes % 17.0 Monocytes % 11.5 H Eosinophils % 4.0 Basophils % 0.5 Nucleated Red Blood 0.0 Cells % Immature 0.180 H Granulocytes # Neutrophils # 6.8 Lymphocytes # 1.8 Monocytes # 1.2 H Eosinophils # 0.4 Basophils # 0.1 Nucleated Red Blood 0.0 Cells # Sodium Level 139 Potassium Level 3.9 Chloride Level 99 Carbon Dioxide Level 32 H Anion Gap 8 Blood Urea Nitrogen 32 H Creatinine 0.80 Est Glomerular Filtrat Rate mL/min Glucose Level 121 Calcium Level 8.3 L Phosphorus Level 3.3 Magnesium Level 2.3 Test 01/23/19 12:07 Bedside Glucose 129 Medications Medication Current Medications IV Flush (NS 3 ml) 3 ml PER PROTOCOL IV ; Start 01/15/19 at 01:30 Nitroglycerin (Nitroglycerin (Sl Tab) 0.4 Mg) 1 tab Q5M PRN SL .CHEST PAIN Last administered on 01/18/19at 23:22; Admin Dose 1 TAB; Start 01/15/19 at 01:30 Docusate Sodium (Colace) 100 mg Q12H PRN PO .CONSTIPATION; Start 01/15/19 at 01:30 Bisacodyl (Dulcolax) 5 mg DAILY PRN PO .CONSTIPATION; Start 01/15/19 at 01:30 Bicalutamide (Casodex) 50 mg DAILY PO Last administered on 01/23/19at 09:24; Admin Dose 50 MG; Start 01/16/19 at 09:00 Tamsulosin HCl (Flomax) 0.4 mg BID PO Last administered on 01/23/19at 09:06; Admin Dose 0.4 MG; Start 01/15/19 at 21:00 Terazosin HCl (Hytrin) 5 mg HS PO Last administered on 01/15/19at 20:43; Admin Dose 5 MG; Start 01/15/19 at 21:00; Status Hold Amlodipine Besylate (Norvasc) 10 mg DAILY PO ; Start 01/16/19 at 09:00; Status Hold Atorvastatin Calcium (Lipitor) 40 mg HS PO Last administered on 01/22/19at 21:08; Admin Dose 40 MG; Start 01/15/19 at 21:00 Nitroglycerin (Nitroglycerin 2% Oint) 0.5 inch Q8 TD Last administered on 01/16/19 01:23; Admin Dose 0.5 INCH; Start 01/16/19 at 01:00; Status Hold Oxycodone/ Acetaminophen (Percocet (5/ 325)) 1 tab Q4H PRN PO PAIN; Start 01/16/19 at 11:00 Al Hydrox/Mg Hydrox/Simethicone (Mag-Al Plus) 30 ml Q4H PRN PO GASTROINTESTINAL UPSET; Start 01/16/19 at 11:00 Oxycodone/ Acetaminophen (Percocet (5/ 325)) 1 tab Q3H PRN PO PAIN LEVEL 1-5; Start 01/16/19 at 17:30 Oxycodone/ Acetaminophen (Percocet (5/ 325)) 2 tab Q3H PRN PO PAIN LEVEL 6-10 Last administered on 01/21/19at 00:49; Admin Dose 2 TAB; Start 01/16/19 at 17:30 Ondansetron HCl (Zofran Inj) 4 mg Q6H PRN IV NAUSEA AND/OR VOMITING; Start 01/16/19 at 17:30 Famotidine (Pepcid) 20 mg BID PO Last administered on 01/23/19 09:06; Admin Dose 20 MG; Start 01/16/19 at 21:00 Aspirin (Aspirin) 325 mg DAILY PO Last administered on 01/23/19 09:06; Admin Dose 325 MG; Start 01/17/19 at 09:00 Acetaminophen (Tylenol Tab) 650 mg Q3H PRN PO ELEVATED TEMPERATURE Last administered on 01/20/19 01:17; Admin Dose 650 MG; Start 01/16/19 at 17:30 Potassium Chloride 50 ml @ 50 mls/hr SEE DIRECTION PRN IVPB K+ LEVEL Last administered on 01/17/19 09:51; Admin Dose 50 MLS/HR; Start 01/16/19 at 17:30 Magnesium Sulfate/ Dextrose 100 ml @ 100 mls/hr PRN PRN IVPB PENDING LAB VALUE; Start 01/16/19 at 17:30 Albumin Human 250 ml @ 250 mls/hr PRN PRN IV CVP <10 Last administered on 01/17/19at 22:36; Admin Dose 250 MLS/HR; Start 01/17/19 at 01:00 Morphine Sulfate (morphine) 2 mg Q4H PRN IV SEVERE PAIN LEVEL 7-10 Last admi nistered on 01/20/19at 17:59; Admin Dose 2 MG; Start 01/18/19 at 16:00 Miscellaneous Information 1 ea NOTE XX ; Start 01/18/19 at 17:00 Glucose (Glutose) 15 gm Q15M PRN PO DECREASED GLUCOSE; Start 01/18/19 at 17:00 Glucose (Glutose) 22.5 gm Q15M PRN PO DECREASED GLUCOSE; Start 01/18/19 at 17:00 Dextrose (D50w Syringe) 25 ml Q15M PRN IV DECREASED GLUCOSE; Start 01/18/19 at 17:00 Dextrose (D50w Syringe) 50 ml Q15M PRN IV DECREASED GLUCOSE; Start 01/18/19 at 17:00 Glucagon (Glucagen) 1 mg Q15M PRN IM DECREASED GLUCOSE; Start 01/18/19 at 17:00 Glucose (Glutose) 15 gm Q15M PRN BUCCAL DECREASED GLUCOSE; Start 01/18/19 at 17:00 Metoprolol Tartrate (Lopressor) 25 mg BID PO Last administered on 01/23/19at 09:07; Admin Dose 25 MG; Start 01/18/19 at 21:00 Lisinopril (Zestril) 10 mg BID PO Last administered on 01/23/19at 09:07; Admin Dose 10 MG; Start 01/18/19 at 21:00 Levalbuterol (Xopenex Neb) 0.63 mg Q4H RESP THERAPY PRN HHN SHORTNESS OF BREATH Last administered on 01/19/19at 03:03; Admin Dose 0.63 MG; Start 01/19/19 at 02:30 Ipratropium [place] (Atrovent 0.02% (Neb)) 0.5 mg Q4H RESP THERAPY PRN HHN SHORTNESS OF BREATH Last administered on 01/19/19at 03:03; Admin Dose 0.5 MG; Start 01/19/19 at 02:30 Enoxaparin Sodium (Lovenox) 40 mg DAILY SC Last administered on 01/23/19at 09:24; Admin Dose 40 MG; Start 01/19/19 at 09:00 Clopidogrel Bisulfate (plaVIX) 75 mg DAILY PO Last administered on 01/23/19 09:06; Admin Dose 75 MG; Start 01/19/19 at 09:00 Diagnostic Test (Pha) (Accu-Chek) 1 ea 02 XX Last administered on 01/20/19 02:39; Admin Dose 1 EA; Start 01/20/19 at 02:00 Insulin Aspart (Novolog Insulin Pen) NOVOLOG *MILD* ALGORITHM WITH MEALS BEDTIME SC Last administered on 01/21/19 12:35; Admin Dose 1 UNIT; Start 01/19/19 at 21:00 Ertapenem 1 gm/ Sodium Chloride 100 ml @ 200 mls/hr Q24H IVPB Last administered on 01/23/19 14:48; Admin Dose 200 MLS/HR; Start 01/20/19 at 14:30 Furosemide (Lasix) 40 mg DAILY IV Last administered on 01/23/19 09:07; Admin Dose 40 MG; Start 01/20/19 at 15:30 NORMA PRINCE NP Jan 23, 2019 15:08
[2019-01-23] MEDS: ATORVASTATIN 40 MG TAB PO SCH (20:37)
[2019-01-24] VITALS (13 sets, daily range): BP systolic 82–115; BP diastolic 42–64; PULSE 68–97; RESP 18–20
[2019-01-24] MEDS: ACCU-CHEK XX SCH (02:00)
[2019-01-24] MEDS: LEVOFLOXACIN 500 MG TAB PO SCH (05:02)
[2019-01-24] MEDS: INSULIN ASPART [NOVOLOG] 3 ML PEN SC SCH ×4 (07:55→20:40)
[2019-01-24] MEDS: ASPIRIN 325 MG TAB PO SCH (08:21)
[2019-01-24] MEDS: CLOPIDOGREL 75 MG TAB PO SCH (08:24)
[2019-01-24] MEDS: FAMOTIDINE 20 MG TAB PO SCH ×2 (08:24→20:20)
[2019-01-24] MEDS: TAMSULOSIN (SR) 0.4 MG CAP PO SCH ×2 (08:25→20:20)
[2019-01-24] MEDS: ENOXAPARIN 40 MG/0.4 ML SYG SC SCH (08:32)
[2019-01-24] MEDS: BICALUTAMIDE 50 MG TAB PO SCH (08:32)
--- NOTE | 2019-01-24 08:41 | CONS ---
Consult Date/Type/Reason Admit Date/Time Jan 15, 2019 at 01:24 Initial Consult Date 01/16/19 Requesting Provider: NEFTALI LYNN Date/Time of Note DATE: 01/24/19 TIME: 08:37 Subjective NO acute events - pt feels well - pain controlled - BP in good range ROS: No fever, no chills, no nausea, no vomiting, no diarrhea/constipation No recent weight changes No chest pain, no PND, no orthopnea + scar discomfort, mild No dizziness, blurred vision No thirst, no heat or cold intolerance Objective Vitals Vital Signs Date Temp Pulse Resp B/P (MAP) Pulse Ox O2 O2 Flow FiO2 Time Delivery Rate 01/24/19 98.2 89 18 106/59 94 07:20 (75) 01/23/19 Nasal 2.0 20:00 Cannula 01/22/19 27 02:18 Intake and Output 01/23/19 01/23/19 01/24/19 1515:00 23:00 07:00 IntakeIntake Total 700 ml 300 ml OutputOutput Total 800 ml BalanceBalance 700 ml -500 ml Exam General: WN/WD/NAD, AOx 3 HEENT: Unicetric/atraumatic/EOMI ( follows commands) NECK: JVD elevated, no thyromegaly Lymph: no lymphadenopathy HEART: regular with no S3, II/ systolic murmur at apex, scar looks well, NO RUB LUNGS: Coarse sounds ABD: soft, NT, ND, +BS : Intact Neuro: non focal SKIN: chronic changes EXT: trace edema Results/Medications Result Diagram: 01/23/19 0609 01/23/19 0609 Results 24 hrs Laboratory Tests Test 01/23/19 12:07 01/23/19 16:49 01/23/19 20:44 01/24/19 07:51 Bedside Glucose 129 104 124 White Blood Count Pending Red Blood Count Pending Hemoglobin Pending Hematocrit Pending Mean Corpuscular Pending Volume Mean Corpuscular Pending Hemoglobin Mean Corpuscular Pending Hemoglobin Concent Red Cell Pending Distribution Width Platelet Count Pending Mean Platelet Volume Pending Test 01/24/19 08:18 Bedside Glucose 109 Home Meds Active Scripts Sennosides/Docusate Sodium (Dok Plus Tablet) 1 Each Tablet, 2 TAB PO HS for 10 Days, #10 TAB 4 Refills Prov:ROMY ZAMORA MD 11/22/18 Acetaminophen* (Tylenol*) 325 Mg Tablet, 650 MG PO Q6H PRN for .PAIN 1-3 OR TEMP for 10 Days, TAB Prov:ROMY ZAMORA MD 11/22/18 Atorvastatin* (Atorvastatin*) 40 Mg Tablet, 40 MG PO HS for 30 Days, #30 TAB Prov:ROMY ZAMORA MD 11/22/18 Tamsulosin Hcl* (Flomax*) 0.4 Mg Cap.er.24h, 0.4 MG PO BID for 14 Days, #30 CAP Prov:ROMY ZAMORA MD 11/22/18 Bicalutamide* (Casodex*) 50 Mg Tablet, 50 MG PO DAILY for 14 Days, #15 TAB Prov:ROMY ZAMORA MD 11/22/18 Reported Medications Mirabegron (Myrbetriq) 50 Mg Tab.er.24h, 25 MG PO DAILY, TAB 11/18/18 Lisinopril* (Lisinopril*) 10 Mg Tablet, 10 MG PO BID, #30 TAB 11/18/18 Esomeprazole Mag Trihydrate (Nexium) 40 Mg Capsule.dr, 40 MG PO DAILY, #30 CAP 11/18/18 Terazosin Hcl* (Terazosin Hcl*) 5 Mg Capsule, 5 MG PO HS, CAP 11/18/18 Fluticasone Propionate (Flonase Allergy Relief) 9.9 Ml [place].susp, 1 SPRAY NASAL DAILY, #1 BOTTLE TO EACH NOSTRIL 11/18/18 Metoprolol Tartrate* (Lopressor*) 25 Mg Tablet, 25 MG PO BID, #60 TAB 11/18/18 Aspirin* (Aspirin* EC) 81 Mg Tablet.dr, 81 MG PO DAILY, TAB 11/18/18 Amlodipine Besylate* (Amlodipine Besylate*) 10 Mg Tablet, 10 MG PO DAILY, #30 TAB 11/18/18 Medications Current Medications IV Flush (NS 3 ml) 3 ml PER PROTOCOL IV ; Start 01/15/19 at 01:30 Nitroglycerin (Nitroglycerin (Sl Tab) 0.4 Mg) 1 tab Q5M PRN SL .CHEST PAIN Last administered on 01/18/19at 23:22; Admin Dose 1 TAB; Start 01/15/19 at 01:30 Docusate Sodium (Colace) 100 mg Q12H PRN PO .CONSTIPATION; Start 01/15/19 at 01:30 Bisacodyl (Dulcolax) 5 mg DAILY PRN PO .CONSTIPATION; Start 01/15/19 at 01:30 Bicalutamide (Casodex) 50 mg DAILY PO Last administered on 01/24/19at 08:32; Admin Dose 50 MG; Start 01/16/19 at 09:00 Tamsulosin HCl (Flomax) 0.4 mg BID PO Last administered on 01/24/19at 08:25; Admin Dose 0.4 MG; Start 01/15/19 at 21:00 Terazosin HCl (Hytrin) 5 mg HS PO Last administered on 01/15/19at 20:43; Admin D ose 5 MG; Start 01/15/19 at 21:00; Status Hold Amlodipine Besylate (Norvasc) 10 mg DAILY PO ; Start 01/16/19 at 09:00; Status Hold Atorvastatin Calcium (Lipitor) 40 mg HS PO Last administered on 01/23/19at 20:37; Admin Dose 40 MG; Start 01/15/19 at 21:00 Nitroglycerin (Nitroglycerin 2% Oint) 0.5 inch Q8 TD Last administered on 01/16/19at 01:23; Admin Dose 0.5 INCH; Start 01/16/19 at 01:00; Status Hold Oxycodone/ Acetaminophen (Percocet (5/ 325)) 1 tab Q4H PRN PO PAIN; Start 01/16/19 at 11:00 Al Hydrox/Mg Hydrox/Simethicone (Mag-Al Plus) 30 ml Q4H PRN PO GASTROINTESTINAL UPSET; Start 01/16/19 at 11:00 Oxycodone/ Acetaminophen (Percocet (5/ 325)) 1 tab Q3H PRN PO PAIN LEVEL 1-5; Start 01/16/19 at 17:30 Oxycodone/ Acetaminophen (Percocet (5/ 325)) 2 tab Q3H PRN PO PAIN LEVEL 6-10 Last administered on 01/21/19at 00:49; Admin Dose 2 TAB; Start 01/16/19 at 17:30 Ondansetron HCl (Zofran Inj) 4 mg Q6H PRN IV NAUSEA AND/OR VOMITING; Start 01/16/19 at 17:30 Famotidine (Pepcid) 20 mg BID PO Last administered on 01/24/19at 08:24; Admin Dose 20 MG; Start 01/16/19 at 21:00 Aspirin (Aspirin) 325 mg DAILY PO Last administered on 01/24/19at 08:21; Admin Dose 325 MG; Start 01/17/19 at 09:00 Acetaminophen (Tylenol Tab) 650 mg Q3H PRN PO ELEVATED TEMPERATURE Last administered on 01/20/19at 01:17; Admin Dose 650 MG; Start 01/16/19 at 17:30 Potassium Chloride 50 ml @ 50 mls/hr SEE DIRECTION PRN IVPB K+ LEVEL Last administered on 01/17/19at 09:51; Admin Dose 50 MLS/HR; Start 01/16/19 at 17:30 Magnesium Sulfate/ Dextrose 100 ml @ 100 mls/hr PRN PRN IVPB PENDING LAB VALUE; Start 01/16/19 at 17:30 Albumin Human 250 ml @ 250 mls/hr PRN PRN IV CVP <10 Last administered on 01/17/19at 22:36; Admin Dose 250 MLS/HR; Start 01/17/19 at 01:00 Morphine Sulfate (morphine) 2 mg Q4H PRN IV SEVERE PAIN LEVEL 7-10 Last administered on 01/20/19at 17:59; Admin Dose 2 MG; Start 01/18/19 at 16:00 Miscellaneous Information 1 ea NOTE XX ; Start 01/18/19 at 17:00 Glucose (Glutose) 15 gm Q15M PRN PO DECREASED GLUCOSE; Start 01/18/19 at 17:00 Glucose (Glutose) 22.5 gm Q15M PRN PO DECREASED GLUCOSE; Start 01/18/19 at 17: 00 Dextrose (D50w Syringe) 25 ml Q15M PRN IV DECREASED GLUCOSE; Start 01/18/19 at 17:00 Dextrose (D50w Syringe) 50 ml Q15M PRN IV DECREASED GLUCOSE; Start 01/18/19 at 17:00 Glucagon (Glucagen) 1 mg Q15M PRN IM DECREASED GLUCOSE; Start 01/18/19 at 17:00 Glucose (Glutose) 15 gm Q15M PRN BUCCAL DECREASED GLUCOSE; Start 01/18/19 at 17:00 Metoprolol Tartrate (Lopressor) 25 mg BID PO Last administered on 01/23/19 20:38; Admin Dose 25 MG; Start 01/18/19 at 21:00 Lisinopril (Zestril) 10 mg BID PO Last administered on 01/23/19 20:38; Admin Dose 10 MG; Start 01/18/19 at 21:00 Levalbuterol (Xopenex Neb) 0.63 mg Q4H RESP THERAPY PRN HHN SHORTNESS OF BREATH Last administered on 01/19/19 03:03; Admin Dose 0.63 MG; Start 01/19/19 at 02:30 Ipratropium [place] (Atrovent 0.02% (Neb)) 0.5 mg Q4H RESP THERAPY PRN HHN SHORTNESS OF BREATH Last administered on 01/19/19 03:03; Admin Dose 0.5 MG; St art 01/19/19 at 02:30 Enoxaparin Sodium (Lovenox) 40 mg DAILY SC Last administered on 01/24/19 08:3 2; Admin Dose 40 MG; Start 01/19/19 at 09:00 Clopidogrel Bisulfate (plaVIX) 75 mg DAILY PO Last administered on 01/24/19 08:24; Admin Dose 75 MG; Start 01/19/19 at 09:00 Diagnostic Test (Pha) (Accu-Chek) 1 ea 02 XX Last administered on 01/20/19at 02:39; Admin Dose 1 EA; Start 01/20/19 at 02:00 Insulin Aspart (Novolog Insulin Pen) NOVOLOG *MILD* ALGORITHM WITH MEALS BEDTIME SC Last administered on 01/21/19at 12:35; Admin Dose 1 UNIT; Start 01/19/19 at 21:00 Levofloxacin (Levaquin) 500 mg DAILY@06 PO Last administered on 01/24/19 05:02; Admin Dose 500 MG; Start 01/24/19 at 06:00 Furosemide (Lasix) 40 mg DAILY PO ; Start 01/24/19 at 09:00 Assessment/Plan Hospital Course (Demo Recall) 1. Non-ST myocardial infarction with up trending cardiac enzymes.-overnight and then this am patient with uptrending cardiac enzymes. Now s/p LHC with mutivessel CAD and emergent echo with decreased EF 30-35% - now post CABG, VS stable - doing much better now. 2. Chest pain secondary to #1 - now resolved post CABG - con't to follow. 3. Abnormal electrocardiogram with anterolateral deep ST depressions - treated. 4. Hypertension-currently borderline hypotension - con't pressor support - BP better - hold lasix now. 5. Dyslipidemia. 6. Benign prostatic hypertrophy- Galvez in place - stable outpuut. 7. Prostate carcinoma. 8. History of hematuria recently. 9. CHF-systolic acute - improved urine output - anti diuresing - hold lasix tpday with lower BP. 10. Anemia - H/H stable now, no bleeding RICO GONZALEZ MD Jan 24, 2019 08:41
[2019-01-24] MEDS: METOPROLOL 25 MG TAB PO SCH ×2 (08:45→20:21)
[2019-01-24] MEDS: LISINOPRIL 10 MG TAB PO SCH (08:46)
[2019-01-24] MEDS ORDERED: FUROSEMIDE 40 MG TAB PO SCH (09:00)
--- NOTE | 2019-01-24 12:14 | CONS ---
Consult Date/Type/Reason Admit Date/Time Jan 15, 2019 at 01:24 Initial Consult Date 01/17/19 Type of Consult Pulmonary Requesting Provider: NEFTALI LYNN Date/Time of Note DATE: 01/24/19 TIME: 12:13 Subjective Patient comfortable this morning no respiratory distress Objective Vital Signs Date Temp Pulse Resp B/P (MAP) Pulse Ox O2 O2 Flow FiO2 Time Delivery Rate 01/24/19 98.2 82 18 82/42 (55) 94 11:23 01/23/19 Nasal 2.0 20:00 Cannula 01/22/19 27 02:18 Intake and Output 01/23/19 01/23/19 01/24/19 1515:00 23:00 07:00 IntakeIntake Total 700 ml 300 ml OutputOutput Total 800 ml BalanceBalance 700 ml -500 ml Exam GENERAL: Well-nourished well-developed gentleman comfortable at rest VITAL SIGNS: per chart NECK: Supple. No JVD or lymphadenopathy. CARDIAC EXAM: S1, S2. No added sounds or murmurs. CHEST: Diminished air entry at bases ABDOMEN: Soft, nontender. No guarding or rebound. EXTREMITIES: No cyanosis, clubbing or edema. NEUROLOGIC: Generalized weakness. No focal deficits. Vent Setting Ventilator Support Mode: CPAP, PS Fraction of Inspired Oxygen pe: 27 Positive End Expiratory Pressu: 5.0 Results/Medications Result Diagram: 01/24/19 0751 01/24/19 0751 Results 24 hrs Laboratory Tests Test 01/23/19 16:49 01/23/19 20:44 01/24/19 07:51 01/24/19 08:18 Bedside Glucose 104 124 109 White Blood Count 11.0 H Red Blood Count 3.22 L Hemoglobin 9.2 L Hematocrit 28.6 L Mean Corpuscular 88.8 Volume Mean Corpuscular 28.6 L Hemoglobin Mean Corpuscular 32.2 Hemoglobin Concent Red Cell 14.9 H Distribution Width Platelet Count 393 Mean Platelet Volume 10.6 H Immature 1.800 H Granulocytes % Neutrophils % 64.4 Lymphocytes % 16.6 Monocytes % 12.3 H Eosinophils % 4.4 Basophils % 0.5 Nucleated Red Blood 0.0 Cells % Immature 0.200 H Granulocytes # Neutrophils # 7.1 Lymphocytes # 1.8 Monocytes # 1.4 H Eosinophils # 0.5 Basophils # 0.1 Nucleated Red Blood 0.0 Cells # Sodium Level 136 Potassium Level 4.0 Chloride Level 98 Carbon Dioxide Level 30 Anion Gap 8 Blood Urea Nitrogen 34 H Creatinine 0.84 Est Glomerular Filtrat Rate mL/min Glucose Level 113 Calcium Level 8.2 L Phosphorus Level 3.6 Magnesium Level 2.3 Test 01/24/19 11:43 Bedside Glucose 146 Medications Current Medications IV Flush (NS 3 ml) 3 ml PER PROTOCOL IV ; Start 01/15/19 at 01:30 Nitroglycerin (Nitroglycerin (Sl Tab) 0.4 Mg) 1 tab Q5M PRN SL .CHEST PAIN Last administered on 01/18/19at 23:22; Admin Dose 1 TAB; Start 01/15/19 at 01:30 Docusate Sodium (Colace) 100 mg Q12H PRN PO .CONSTIPATION; Start 01/15/19 at 0 1:30 Bisacodyl (Dulcolax) 5 mg DAILY PRN PO .CONSTIPATION; Start 01/15/19 at 01:30 Bicalutamide (Casodex) 50 mg DAILY PO Last administered on 01/24/19at 08:32; Admin Dose 50 MG; Start 01/16/19 at 09:00 Tamsulosin HCl (Flomax) 0.4 mg BID PO Last administered on 01/24/19at 08:25; Admin Dose 0.4 MG; Start 01/15/19 at 21:00 Terazosin HCl (Hytrin) 5 mg HS PO Last administered on 01/15/19at 20:43; Admin Do se 5 MG; Start 01/15/19 at 21:00; Status Hold Amlodipine Besylate (Norvasc) 10 mg DAILY PO ; Start 01/16/19 at 09:00; Status Hold Atorvastatin Calcium (Lipitor) 40 mg HS PO Last administered on 01/23/19at 20:37; Admin Dose 40 MG; Start 01/15/19 at 21:00 Nitroglycerin (Nitroglycerin 2% Oint) 0.5 inch Q8 TD Last administered on 01/16/19at 01:23; Admin Dose 0.5 INCH; Start 01/16/19 at 01:00; Status Hold Oxycodone/ Acetaminophen (Percocet (5/ 325)) 1 tab Q4H PRN PO PAIN; Start 01/16/19 at 11:00 Al Hydrox/Mg Hydrox/Simethicone (Mag-Al Plus) 30 ml Q4H PRN PO GASTROINTESTINAL UPSET; Start 01/16/19 at 11:00 Oxycodone/ Acetaminophen (Percocet (5/ 325)) 1 tab Q3H PRN PO PAIN LEVEL 1-5; Start 01/16/19 at 17:30 Oxycodone/ Acetaminophen (Percocet (5/ 325)) 2 tab Q3H PRN PO PAIN LEVEL 6-10 Last administered on 01/21/19at 00:49; Admin Dose 2 TAB; Start 01/16/19 at 17:30 Ondansetron HCl (Zofran Inj) 4 mg Q6H PRN IV NAUSEA AND/OR VOMITING; Start 01/16/19 at 17:30 Famotidine (Pepcid) 20 mg BID PO Last administered on 01/24/19at 08:24; Admin Dose 20 MG; Start 01/16/19 at 21:00 Aspirin (Aspirin) 325 mg DAILY PO Last administered on 01/24/19at 08:21; Admin Dose 325 MG; Start 01/17/19 at 09:00 Acetaminophen (Tylenol Tab) 650 mg Q3H PRN PO ELEVATED TEMPERATURE Last administered on 01/20/19 01:17; Admin Dose 650 MG; Start 01/16/19 at 17:30 Potassium Chloride 50 ml @ 50 mls/hr SEE DIRECTION PRN IVPB K+ LEVEL Last administered on 01/17/19at 09:51; Admin Dose 50 MLS/HR; Start 01/16/19 at 17:30 Magnesium Sulfate/ Dextrose 100 ml @ 100 mls/hr PRN PRN IVPB PENDING LAB VALUE; Start 01/16/19 at 17:30 Albumin Human 250 ml @ 250 mls/hr PRN PRN IV CVP <10 Last administered on 01/17/19at 22:36; Admin Dose 250 MLS/HR; Start 01/17/19 at 01:00 Morphine Sulfate (morphine) 2 mg Q4H PRN IV SEVERE PAIN LEVEL 7-10 Last administered on 01/20/19at 17:59; Admin Dose 2 MG; Start 01/18/19 at 16:00 Miscellaneous Information 1 ea NOTE XX ; Start 01/18/19 at 17:00 Glucose (Glutose) 15 gm Q15M PRN PO DECREASED GLUCOSE; Start 01/18/19 at 17:00 Glucose (Glutose) 22.5 gm Q15M PRN PO DECREASED GLUCOSE; Start 01/18/19 at 17:0 0 Dextrose (D50w Syringe) 25 ml Q15M PRN IV DECREASED GLUCOSE; Start 01/18/19 at 17:00 Dextrose (D50w Syringe) 50 ml Q15M PRN IV DECREASED GLUCOSE; Start 01/18/19 at 17:00 Glucagon (Glucagen) 1 mg Q15M PRN IM DECREASED GLUCOSE; Start 01/18/19 at 17:00 Glucose (Glutose) 15 gm Q15M PRN BUCCAL DECREASED GLUCOSE; Start 01/18/19 at 17:00 Metoprolol Tartrate (Lopressor) 25 mg BID PO Last administered on 01/24/19at 08:45; Admin Dose 25 MG; Start 01/18/19 at 21:00 Lisinopril (Zestril) 10 mg BID PO Last administered on 01/23/19at 20:38; Admin Dose 10 MG; Start 01/18/19 at 21:00 Levalbuterol (Xopenex Neb) 0.63 mg Q4H RESP THERAPY PRN HHN SHORTNESS OF BREATH Last administered on 01/19/19at 03:03; Admin Dose 0.63 MG; Start 01/19/19 at 02:30 Ipratropium [place] (Atrovent 0.02% (Neb)) 0.5 mg Q4H RESP THERAPY PRN HHN SHORTNESS OF BREATH Last administered on 01/19/19at 03:03; Admin Dose 0.5 MG; Start 01/19/19 at 02:30 Enoxaparin Sodium (Lovenox) 40 mg DAILY SC Last administered on 01/24/19at 08:32 ; Admin Dose 40 MG; Start 01/19/19 at 09:00 Clopidogrel Bisulfate (plaVIX) 75 mg DAILY PO Last administered on 01/24/19 08:24; Admin Dose 75 MG; Start 01/19/19 at 09:00 Diagnostic Test (Pha) (Accu-Chek) 1 ea 02 XX Last administered on 01/20/19at 02:39; Admin Dose 1 EA; Start 01/20/19 at 02:00 Insulin Aspart (Novolog Insulin Pen) NOVOLOG *MILD* ALGORITHM WITH MEALS BEDTIME SC Last administered on 4/16/19at 11:56; Admin Dose 1 UNIT; Start 01/19/19 at 21:00 Levofloxacin (Levaquin) 500 mg DAILY@06 PO Last administered on 01/24/19at 05:02; Admin Dose 500 MG; Start 01/24/19 at 06:00 Assessment/Plan Hospital Course (Demo Recall) assessment 1. Coronary artery disease status post acute coronary artery bypass graft surgery 2. Status post shock likely combination of cardiogenic and septic. 3. Chest CT demonstrates moderate right pleural effusion. Repeat chest x-ray shows small to moderate right pleural effusion. 4. Improved acute hypoxemic respiratory failure 5. History of prostate cancer Plan 1. Incentive spirometry and chest PT 2. Encourage out of bed 3. Aspiration precautions ARU evaluation DC planning. LA GEE MD, [facility] Jan 24, 2019 12:14
--- NOTE | 2019-01-24 13:17 | CONS ---
Assessment/Plan Assessment/Plan Hospital Course (Demo Recall) Alert, feels good, no fevers, nad Antimicrobials: Invanz Microbiology: Blood culture on admission grew Citrobacter freundii, repeat blood cultures negative sputum culture pending urine culture negative Physical examination: Well-developed well-nourished elderly man who is alert, in no distress. Head atraumatic normocephalic sclera nonicteric. Neck is supple chest rise symmetrical breath sounds CTA. Heart: S1-S2. Abdomen soft, BT active. Extremities without cyanosis. Assessment: 1. S/p septic shock, possibly cardiogenic 2. Gram-negative david bacteremia likely secondary to UTI 3. Pulmonary edema with superimposed pneumonia, possible aspiration 3. Acute [place] status post emergency CABG 01/16/19 4. History of prostate cancer 5. History of hypertension 6. Acute anemia Plan: Doing well, continue oral Levaquin for 4 more days DW pt/family Consultation Date/Type/Reason Admit Date/Time Jan 15, 2019 at 01:24 Initial Consult Date 01/17/19 Type of Consult id Requesting Provider: NEFTALI LYNN Date/Time of Note DATE: 01/24/19 TIME: 13:16 Exam/Review of Systems Exam Vitals Vital Signs Date Temp Pulse Resp B/P (MAP) Pulse Ox O2 O2 Flow FiO2 Time Delivery Rate 01/24/19 96 12:22 01/24/19 98.2 18 82/42 (55) 94 11:23 01/23/19 Nasal 2.0 20:00 Cannula 01/22/19 27 02:18 Intake and Output 01/23/19 01/23/19 01/24/19 1414:59 22:59 06:59 IntakeIntake Total 700 ml 300 ml OutputOutput Total 800 ml BalanceBalance 700 ml -500 ml Results Result Diagram: 01/24/19 0751 01/24/19 0751 Results 24hrs Laboratory Tests Test 01/23/19 16:49 01/23/19 20:44 01/24/19 07:51 01/24/19 08:18 Bedside Glucose 104 124 109 White Blood Count 11.0 H Red Blood Count 3.22 L Hemoglobin 9.2 L Hematocrit 28.6 L Mean Corpuscular 88.8 Volume Mean Corpuscular 28.6 L Hemoglobin Mean Corpuscular 32.2 Hemoglobin Concent Red Cell 14.9 H Distribution Width Platelet Count 393 Mean Platelet Volume 10.6 H Immature 1.800 H Granulocytes % Neutrophils % 64.4 Lymphocytes % 16.6 Monocytes % 12.3 H Eosinophils % 4.4 Basophils % 0.5 Nucleated Red Blood 0.0 Cells % Immature 0.200 H Granulocytes # Neutrophils # 7.1 Lymphocytes # 1.8 Monocytes # 1.4 H Eosinophils # 0.5 Basophils # 0.1 Nucleated Red Blood 0.0 Cells # Sodium Level 136 Potassium Level 4.0 Chloride Level 98 Carbon Dioxide Level 30 Anion Gap 8 Blood Urea Nitrogen 34 H Creatinine 0.84 Est Glomerular Filtrat Rate mL/min Glucose Level 113 Calcium Level 8.2 L Phosphorus Level 3.6 Magnesium Level 2.3 Test 01/24/19 11:43 Bedside Glucose 146 Medications Medication Current Medications IV Flush (NS 3 ml) 3 ml PER PROTOCOL IV ; Start 01/15/19 at 01:30 Nitroglycerin (Nitroglycerin (Sl Tab) 0.4 Mg) 1 tab Q5M PRN SL .CHEST PAIN Last administered on 01/18/19at 23:22; Admin Dose 1 TAB; Start 01/15/19 at 01:30 Docusate Sodium (Colace) 100 mg Q12H PRN PO .CONSTIPATION; Start 01/15/19 at 01:30 Bisacodyl (Dulcolax) 5 mg DAILY PRN PO .CONSTIPATION; Start 01/15/19 at 01:30 Bicalutamide (Casodex) 50 mg DAILY PO Last administered on 01/24/19at 08:32; Admin Dose 50 MG; Start 01/16/19 at 09:00 Tamsulosin HCl (Flomax) 0.4 mg BID PO Last administered on 01/24/19at 08:25; Admin Dose 0.4 MG; Start 01/15/19 at 21:00 Terazosin HCl (Hytrin) 5 mg HS PO Last administered on 01/15/19at 20:43; Admin Dose 5 MG; Start 01/15/19 at 21:00; Status Hold Amlodipine Besylate (Norvasc) 10 mg DAILY PO ; Start 01/16/19 at 09:00; Status Hold Atorvastatin Calcium (Lipitor) 40 mg HS PO Last administered on 01/23/19at 20:37; Admin Dose 40 MG; Start 01/15/19 at 21:00 Nitroglycerin (Nitroglycerin 2% Oint) 0.5 inch Q8 TD Last administered on 01/16/19at 01:23; Admin Dose 0.5 INCH; Start 01/16/19 at 01:00; Status Hold Oxycodone/ Acetaminophen (Percocet (5/ 325)) 1 tab Q4H PRN PO PAIN; Start 01/16/19 at 11:00 Al Hydrox/Mg Hydrox/Simethicone (Mag-Al Plus) 30 ml Q4H PRN PO GASTROINTESTINAL UPSET; Start 01/16/19 at 11:00 Oxycodone/ Acetaminophen (Percocet (5/ 325)) 1 tab Q3H PRN PO PAIN LEVEL 1-5; Start 01/16/19 at 17:30 Oxycodone/ Acetaminophen (Percocet (5/ 325)) 2 tab Q3H PRN PO PAIN LEVEL 6-10 Last administered on 01/21/19at 00:49; Admin Dose 2 TAB; Start 01/16/19 at 17:30 Ondansetron HCl (Zofran Inj) 4 mg Q6H PRN IV NAUSEA AND/OR VOMITING; Start 01/16/19 at 17:30 Famotidine (Pepcid) 20 mg BID PO Last administered on 01/24/19at 08:24; Admin Dose 20 MG; Start 01/16/19 at 21:00 Aspirin (Aspirin) 325 mg DAILY PO Last administered on 01/24/19at 08:21; Admin Dose 325 MG; Start 01/17/19 at 09:00 Acetaminophen (Tylenol Tab) 650 mg Q3H PRN PO ELEVATED TEMPERATURE Last administered on 01/20/19at 01:17; Admin Dose 650 MG; Start 01/16/19 at 17:30 Potassium Chloride 50 ml @ 50 mls/hr SEE DIRECTION PRN IVPB K+ LEVEL Last administered on 01/17/19at 09:51; Admin Dose 50 MLS/HR; Start 01/16/19 at 17:30 Magnesium Sulfate/ Dextrose 100 ml @ 100 mls/hr PRN PRN IVPB PENDING LAB VALUE; Start 01/16/19 at 17:30 Albumin Human 250 ml @ 250 mls/hr PRN PRN IV CVP <10 Last administered on 01/17/19at 22:36; Admin Dose 250 MLS/HR; Start 01/17/19 at 01:00 Morphine Sulfate (morphine) 2 mg Q4H PRN IV SEVERE PAIN LEVEL 7-10 Last administered on 01/20/19at 17:59; Admin Dose 2 MG; Start 01/18/19 at 16:00 Miscellaneous Information 1 ea NOTE XX ; Start 01/18/19 at 17:00 Glucose (Glutose) 15 gm Q15M PRN PO DECREASED GLUCOSE; Start 01/18/19 at 17:00 Glucose (Glutose) 22.5 gm Q15M PRN PO DECREASED GLUCOSE; Start 01/18/19 at 17:00 Dextrose (D50w Syringe) 25 ml Q15M PRN IV DECREASED GLUCOSE; Start 01/18/19 at 17:00 Dextrose (D50w Syringe) 50 ml Q15M PRN IV DECREASED GLUCOSE; Start 01/18/19 at 17:00 Glucagon (Glucagen) 1 mg Q15M PRN IM DECREASED GLUCOSE; Start 01/18/19 at 17:00 Glucose (Glutose) 15 gm Q15M PRN BUCCAL DECREASED GLUCOSE; Start 01/18/19 at 17:00 Metoprolol Tartrate (Lopressor) 25 mg BID PO Last administered on 01/24/19at 08:45; Admin Dose 25 MG; Start 01/18/19 at 21:00 Lisinopril (Zestril) 10 mg BID PO Last administered on 01/23/19at 20:38; Admin Dose 10 MG; Start 01/18/19 at 21:00 Levalbuterol (Xopenex Neb) 0.63 mg Q4H RESP THERAPY PRN HHN SHORTNESS OF BREATH Last administered on 01/19/19at 03:03; Admin Dose 0.63 MG; Start 01/19/19 at 02:30 Ipratropium [place] (Atrovent 0.02% (Neb)) 0.5 mg Q4H RESP THERAPY PRN HHN SHORTNESS OF BREATH Last administered on 01/19/19at 03:03; Admin Dose 0.5 MG; Start 01/19/19 at 02:30 Enoxaparin Sodium (Lovenox) 40 mg DAILY SC Last administered on 01/24/19 08:32; Admin Dose 40 MG; Start 01/19/19 at 09:00 Clopidogrel Bisulfate (plaVIX) 75 mg DAILY PO Last administered on 01/24/19at 08:24; Admin Dose 75 MG; Start 01/19/19 at 09:00 Diagnostic Test (Pha) (Accu-Chek) 1 ea 02 XX Last administered on 01/20/19at 02:39; Admin Dose 1 EA; Start 01/20/19 at 02:00 Insulin Aspart (Novolog Insulin Pen) NOVOLOG *MILD* ALGORITHM WITH MEALS BEDTIME SC Last administered on 01/24/19 11:56; Admin Dose 1 UNIT; Start 01/19/19 at 21:00 Levofloxacin (Levaquin) 500 mg DAILY@06 PO Last administered on 01/24/19 05:02; Admin Dose 500 MG; Start 01/24/19 at 06:00 NORMA PRINCE NP Jan 24, 2019 13:17
--- NOTE | 2019-01-24 17:01 | PN ---
Date/Time of Note Date/Time of Note DATE: 01/24/19 TIME: 16:52 Assessment/Plan VTE Prophylaxis Risk score (from Ns)>0 risk: 8 SCD applied (from Ns): Yes Pharmacological prophylaxis: other Lines/Catheters IV Catheter Type (from Nrsg): Saline Lock Urinary Cath still in place: No Assessment/Plan Assessment/Plan 1. Non-ST elevation WI, status post left heart cath and now multivessel i ntervention with open heart surgery done January 16, 2019 - Patients BP has been running low and adjustments made on medication dosages - pain control - ECHO from November 2018 shows an ejection fraction of roughly 35-40% with diastolic dysfunction. 2. Sepsis secondary to UTI - UA results noted. repeat urine cx negative - may be catheter related given had one in place for 2 months - ID on board and will continue Levaquin for 4 more days 3. Bacteremia secondary to UTI - continue current antibiotics. repeat cx negative 4. Urinary retention - Acute on chronic - okay for straight cath if >400 residual and patient feels bladder pressure. has hx prostate CA 5. H/o Prostate cancer - follows with [facility] - Patient received Lupron Depo injection before admission 6. HTN - continue meds per cardiology 7. CM - continue meds per cardiology 8. Disposition - Medication adjustments made given hypotensive - ARU evaluation pending - d/c once cleared by Cardiology and CT surgery Result Diagram: 01/24/19 0751 01/24/19 0751 Results 24hrs Laboratory Tests Test 01/23/19 20:44 01/24/19 07:51 01/24/19 08:18 01/24/19 11:43 Bedside Glucose 124 109 146 White Blood Count 11.0 H Red Blood Count 3.22 L Hemoglobin 9.2 L Hematocrit 28.6 L Mean Corpuscular 88.8 Volume Mean Corpuscular 28.6 L Hemoglobin Mean Corpuscular 32.2 Hemoglobin Concent Red Cell 14.9 H Distribution Width Platelet Count 393 Mean Platelet Volume 10.6 H Immature 1.800 H Granulocytes % Neutrophils % 64.4 Lymphocytes % 16.6 Monocytes % 12.3 H Eosinophils % 4.4 Basophils % 0.5 Nucleated Red Blood 0.0 Cells % Immature 0.200 H Granulocytes # Neutrophils # 7.1 Lymphocytes # 1.8 Monocytes # 1.4 H Eosinophils # 0.5 Basophils # 0.1 Nucleated Red Blood 0.0 Cells # Sodium Level 136 Potassium Level 4.0 Chloride Level 98 Carbon Dioxide Level 30 Anion Gap 8 Blood Urea Nitrogen 34 H Creatinine 0.84 Est Glomerular Filtrat Rate mL/min Glucose Level 113 Calcium Level 8.2 L Phosphorus Level 3.6 Magnesium Level 2.3 Subjective 24 Hr Interval Summary Free Text/Dictation Patient states hes feeling okay and believes his hypotension will improve after he eats. No acute overnight events. Exam/Review of Systems Exam Vitals Vital Signs Date Temp Pulse Resp B/P (MAP) Pulse Ox O2 O2 Flow FiO2 Time Delivery Rate 01/24/19 87 16:43 01/24/19 98.2 18 114/55 94 16:00 (74) 01/23/19 Nasal 2.0 20:00 Cannula 01/22/19 27 02:18 Intake and Output 01/23/19 01/23/19 01/24/19 1515:00 23:00 07:00 IntakeIntake Total 700 ml 300 ml OutputOutput Total 800 ml BalanceBalance 700 ml -500 ml Exam General: Patient is laying in bed and answering questions appropriately Mentation: Patient is alert and oriented Neck: Supple, nontender, midline Respiratory: Coarse to auscultation bilaterally. no wheezing Cardiovascular: regular rate and rhythm, no obvious murmurs Gastrointestinal: soft, non-tender to palpation, bowel sounds heard. Neurological: Able to move all extremities Skin: No new skin lesions. surgical incision clean and dry Results Results 24hrs Laboratory Tests Test 01/23/19 20:44 01/24/19 07:51 01/24/19 08:18 01/24/19 11:43 Bedside Glucose 124 109 146 White Blood Count 11.0 H Red Blood Count 3.22 L Hemoglobin 9.2 L Hematocrit 28.6 L Mean Corpuscular 88.8 Volume Mean Corpuscular 28.6 L Hemoglobin Mean Corpuscular 32.2 Hemoglobin Concent Red Cell 14.9 H Distribution Width Platelet Count 393 Mean Platelet Volume 10.6 H Immature 1.800 H Granulocytes % Neutrophils % 64.4 Lymphocytes % 16.6 Monocytes % 12.3 H Eosinophils % 4.4 Basophils % 0.5 Nucleated Red Blood 0.0 Cells % Immature 0.200 H Granulocytes # Neutrophils # 7.1 Lymphocytes # 1.8 Monocytes # 1.4 H Eosinophils # 0.5 Basophils # 0.1 Nucleated Red Blood 0.0 Cells # Sodium Level 136 Potassium Level 4.0 Chloride Level 98 Carbon Dioxide Level 30 Anion Gap 8 Blood Urea Nitrogen 34 H Creatinine 0.84 Est Glomerular Filtrat Rate mL/min Glucose Level 113 Calcium Level 8.2 L Phosphorus Level 3.6 Magnesium Level 2.3 Medications Medication Current Medications IV Flush (NS 3 ml) 3 ml PER PROTOCOL IV ; Start 01/15/19 at 01:30 Nitroglycerin (Nitroglycerin (Sl Tab) 0.4 Mg) 1 tab Q5M PRN SL .CHEST PAIN Last administered on 01/18/19at 23:22; Admin Dose 1 TAB; Start 01/15/19 at 01:30 Docusate Sodium (Colace) 100 mg Q12H PRN PO .CONSTIPATION; Start 01/15/19 at 01:30 Bisacodyl (Dulcolax) 5 mg DAILY PRN PO .CONSTIPATION; Start 01/15/19 at 01:30 Bicalutamide (Casodex) 50 mg DAILY PO Last administered on 01/24/19at 08:32; Admin Dose 50 MG; Start 01/16/19 at 09:00 Tamsulosin HCl (Flomax) 0.4 mg BID PO Last administered on 01/24/19at 08:25; Admin Dose 0.4 MG; Start 01/15/19 at 21:00 Terazosin HCl (Hytrin) 5 mg HS PO Last administered on 01/15/19at 20:43; Admin Dose 5 MG; Start 01/15/19 at 21:00; Status Hold Amlodipine Besylate (Norvasc) 10 mg DAILY PO ; Start 01/16/19 at 09:00; Status Hold Atorvastatin Calcium (Lipitor) 40 mg HS PO Last administered on 01/23/19at 20:37; Admin Dose 40 MG; Start 01/15/19 at 21:00 Nitroglycerin (Nitroglycerin 2% Oint) 0.5 inch Q8 TD Last administered on 01/16/19at 01:23; Admin Dose 0.5 INCH; Start 01/16/19 at 01:00; Status Hold Oxycodone/ Acetaminophen (Percocet (5/ 325)) 1 tab Q4H PRN PO PAIN; Start 01/16/19 at 11:00 Al Hydrox/Mg Hydrox/Simethicone (Mag-Al Plus) 30 ml Q4H PRN PO GASTROINTESTINAL UPSET; Start 01/16/19 at 11:00 Oxycodone/ Acetaminophen (Percocet (5/ 325)) 1 tab Q3H PRN PO PAIN LEVEL 1-5; Start 01/16/19 at 17:30 Oxycodone/ Acetaminophen (Percocet (5/ 325)) 2 tab Q3H PRN PO PAIN LEVEL 6-10 Last administered on 01/21/19at 00:49; Admin Dose 2 TAB; Start 01/16/19 at 17:30 Ondansetron HCl (Zofran Inj) 4 mg Q6H PRN IV NAUSEA AND/OR VOMITING; Start at 17:30 Famotidine (Pepcid) 20 mg BID PO Last administered on 01/24/19at 08:24; Admin Dose 20 MG; Start 01/16/19 at 21:00 Aspirin (Aspirin) 325 mg DAILY PO Last administered on 01/24/19at 08:21; Admin Dose 325 MG; Start 01/17/19 at 09:00 Acetaminophen (Tylenol Tab) 650 mg Q3H PRN PO ELEVATED TEMPERATURE Last administered on 01/20/19 01:17; Admin Dose 650 MG; Start 01/16/19 at 17:30 Potassium Chloride 50 ml @ 50 mls/hr SEE DIRECTION PRN IVPB K+ LEVEL Last administered on 01/17/19at 09:51; Admin Dose 50 MLS/HR; Start 01/16/19 at 17:30 Magnesium Sulfate/ Dextrose 100 ml @ 100 mls/hr PRN PRN IVPB PENDING LAB VALUE; Start 01/16/19 at 17:30 Albumin Human 250 ml @ 250 mls/hr PRN PRN IV CVP <10 Last administered on 01/17/19at 22:36; Admin Dose 250 MLS/HR; Start 01/17/19 at 01:00 Morphine Sulfate (morphine) 2 mg Q4H PRN IV SEVERE PAIN LEVEL 7-10 Last administered on 01/20/19 17:59; Admin Dose 2 MG; Start 01/18/19 at 16:00 Miscellaneous Information 1 ea NOTE XX ; Start 01/18/19 at 17:00 Glucose (Glutose) 15 gm Q15M PRN PO DECREASED GLUCOSE; Start 01/18/19 at 17:00 Glucose (Glutose) 22.5 gm Q15M PRN PO DECREASED GLUCOSE; Start 01/18/19 at 17:00 Dextrose (D50w Syringe) 25 ml Q15M PRN IV DECREASED GLUCOSE; Start 01/18/19 at 17:00 Dextrose (D50w Syringe) 50 ml Q15M PRN IV DECREASED GLUCOSE; Start 01/18/19 at 17:00 Glucagon (Glucagen) 1 mg Q15M PRN IM DECREASED GLUCOSE; Start 01/18/19 at 17:00 Glucose (Glutose) 15 gm Q15M PRN BUCCAL DECREASED GLUCOSE; Start 01/18/19 at 17:00 Metoprolol Tartrate (Lopressor) 25 mg BID PO Last administered on 01/24/19 08:45; Admin Dose 25 MG; Start 01/18/19 at 21:00 Lisinopril (Zestril) 10 mg BID PO Last administered on 01/23/19at 20:38; Admin Dose 10 MG; Start 01/18/19 at 21:00 Levalbuterol (Xopenex Neb) 0.63 mg Q4H RESP THERAPY PRN HHN SHORTNESS OF BREATH Last administered on 01/19/19 03:03; Admin Dose 0.63 MG; Start 01/19/19 at 02:30 Ipratropium [place] (Atrovent 0.02% (Neb)) 0.5 mg Q4H RESP THERAPY PRN HHN SHORTNESS OF BREATH Last administered on 01/19/19at 03:03; Admin Dose 0.5 MG; Start 01/19/19 at 02:30 Enoxaparin Sodium (Lovenox) 40 mg DAILY SC Last administered on 01/24/19 08:32; Admin Dose 40 MG; Start 01/19/19 at 09:00 Clopidogrel Bisulfate (plaVIX) 75 mg DAILY PO Last administered on 01/24/19 08:24; Admin Dose 75 MG; Start 01/19/19 at 09:00 Diagnostic Test (Pha) (Accu-Chek) 1 ea 02 XX Last administered on 01/20/19 02:39; Admin Dose 1 EA; Start 01/20/19 at 02:00 Insulin Aspart (Novolog Insulin Pen) NOVOLOG *MILD* ALGORITHM WITH MEALS BEDTIME SC Last administered on 01/24/19 11:56; Admin Dose 1 UNIT; Start 01/19/19 at 21:00 Levofloxacin (Levaquin) 500 mg DAILY@06 PO Last administered on 01/24/19at 05:02 ; Admin Dose 500 MG; Start 01/24/19 at 06:00 MATY DE LA FUENTE MD Jan 24, 2019 17:01
--- NOTE | 2019-01-24 18:04 | PN ---
Date/Time of Note Date/Time of Note DATE: 01/24/19 TIME: 18:03 Assessment/Plan Lines/Catheters IV Catheter Type (from Nrs): Saline Lock Galvez in Place (from Nrs): No Assessment/Plan Assessment/Plan doing better, ok for discharge Exam/Review of Systems Vital Signs Vitals Vital Signs Date Temp Pulse Resp B/P (MAP) Pulse Ox O2 O2 Flow FiO2 Time Delivery Rate 01/24/19 2.0 18:01 01/24/19 87 16:43 01/24/19 98.2 18 114/55 94 16:00 (74) 01/24/19 Nasal 08:00 Cannula 01/22/19 27 02:18 Intake and Output 01/23/19 01/23/19 01/24/19 1515:00 23:00 07:00 IntakeIntake Total 700 ml 300 ml OutputOutput Total 800 ml BalanceBalance 700 ml -500 ml Results Result Diagram: 01/24/19 0751 01/24/19 0751 SHARON MONTGOMERY MD Jan 24, 2019 18:04
[2019-01-24] MEDS: ACETAMINOPHEN 325 MG TAB PO PRN (20:19)
[2019-01-24] MEDS: ATORVASTATIN 40 MG TAB PO SCH (20:20)
[2019-01-24] MEDS: LISINOPRIL 5 MG TAB PO SCH (20:20)
[2019-01-25] VITALS (12 sets, daily range): BP systolic 92–129; BP diastolic 53–67; PULSE 82–95; RESP 16–19
[2019-01-25] MEDS: ACCU-CHEK XX SCH (02:00)
[2019-01-25] MEDS: LEVOFLOXACIN 500 MG TAB PO SCH (05:27)
[2019-01-25] MEDS: INSULIN ASPART [NOVOLOG] 3 ML PEN SC SCH ×4 (07:55→20:23)
[2019-01-25] MEDS: ASPIRIN 325 MG TAB PO SCH (08:10)
[2019-01-25] MEDS: CLOPIDOGREL 75 MG TAB PO SCH (08:10)
[2019-01-25] MEDS: FAMOTIDINE 20 MG TAB PO SCH ×2 (08:11→20:16)
[2019-01-25] MEDS: TAMSULOSIN (SR) 0.4 MG CAP PO SCH ×2 (08:11→20:16)
[2019-01-25] MEDS: METOPROLOL 25 MG TAB PO SCH ×2 (08:14→20:20)
[2019-01-25] MEDS: LISINOPRIL 5 MG TAB PO SCH ×2 (08:16→20:20)
[2019-01-25] MEDS: BICALUTAMIDE 50 MG TAB PO SCH (08:28)
[2019-01-25] MEDS: ENOXAPARIN 40 MG/0.4 ML SYG SC SCH (08:35)
--- NOTE | 2019-01-25 13:54 | CONS ---
Assessment/Plan Assessment/Plan Hospital Course (Demo Recall) No acute changes, looks comfortable, no fevers Antimicrobials: Levaquin Microbiology: Blood culture on admission grew Citrobacter freundii, repeat blood cultures negative sputum culture pending urine culture negative Physical examination: Well-developed well-nourished elderly man who is alert, in no distress. Head atraumatic normocephalic sclera nonicteric. Neck is supple chest rise symmetrical breath sounds CTA. Heart: S1-S2. Abdomen soft, BT active. Extremities without cyanosis. Assessment: 1. S/p septic shock, possibly cardiogenic 2. Gram-negative david bacteremia likely secondary to UTI 3. Pulmonary edema with superimposed pneumonia, possible aspiration 3. Acute [place] status post emergency CABG 01/16/19 4. History of prostate cancer 5. History of hypertension 6. Acute anemia Plan: Stable, completing abx==> 3 more days Consultation Date/Type/Reason Admit Date/Time Jan 15, 2019 at 01:24 Initial Consult Date 01/17/19 Type of Consult id Requesting Provider: NEFTALI LYNN Date/Time of Note DATE: 01/25/19 TIME: 13:53 Exam/Review of Systems Exam Vitals Vital Signs Date Temp Pulse Resp B/P (MAP) Pulse Ox O2 O2 Flow FiO2 Time Delivery Rate 01/25/19 83 13:28 01/25/19 98.2 19 109/55 97 11:41 (73) 01/25/19 Nasal 03:47 Cannula 01/25/19 2.0 01:32 01/22/19 27 02:18 Intake and Output 01/24/19 01/24/19 01/25/19 1515:00 23:00 07:00 IntakeIntake Total 800 ml 500 ml OutputOutput Total 500 ml 550 ml BalanceBalance 300 ml -50 ml Results Result Diagram: 01/25/19 0623 01/24/19 0751 Results 24hrs Laboratory Tests Test 01/24/19 17:42 01/24/19 20:39 01/25/19 06:23 01/25/19 08:08 Bedside Glucose 98 133 128 White Blood Count 10.9 H Red Blood Count 3.11 L Hemoglobin 9.1 L Hematocrit 28.0 L Mean Corpuscular 90.0 Volume Mean Corpuscular 29.3 Hemoglobin Mean Corpuscular 32.5 Hemoglobin Concent Red Cell 14.7 H Distribution Width Platelet Count 378 Mean Platelet Volume 10.3 Immature 1.900 H Granulocytes % Neutrophils % 66.0 Lymphocytes % 15.7 Monocytes % 11.1 H Eosinophils % 4.8 Basophils % 0.5 Nucleated Red Blood 0.0 Cells % Immature 0.210 H Granulocytes # Neutrophils # 7.2 Lymphocytes # 1.7 Monocytes # 1.2 H Eosinophils # 0.5 Basophils # 0.1 Nucleated Red Blood 0.0 Cells # Test 01/25/19 11:52 Bedside Glucose 100 Medications Medication Current Medications IV Flush (NS 3 ml) 3 ml PER PROTOCOL IV ; Start 01/15/19 at 01:30 Nitroglycerin (Nitroglycerin (Sl Tab) 0.4 Mg) 1 tab Q5M PRN SL .CHEST PAIN Last administered on 01/18/19 23:22; Admin Dose 1 TAB; Start 01/15/19 at 01:30 Docusate Sodium (Colace) 100 mg Q12H PRN PO .CONSTIPATION; Start 01/15/19 at 01:30 Bisacodyl (Dulcolax) 5 mg DAILY PRN PO .CONSTIPATION Last administered on 01/24/19 20:18; Admin Dose 5 MG; Start 01/15/19 at 01:30 Bicalutamide (Casodex) 50 mg DAILY PO Last administered on 01/25/19 08:28; Admin Dose 50 MG; Start 01/16/19 at 09:00 Tamsulosin HCl (Flomax) 0.4 mg BID PO Last administered on 01/25/19at 08:11; Admin Dose 0.4 MG; Start 01/15/19 at 21:00 Terazosin HCl (Hytrin) 5 mg HS PO Last administered on 01/15/19at 20:43; Admin Dose 5 MG; Start 01/15/19 at 21:00; Status Hold Amlodipine Besylate (Norvasc) 10 mg DAILY PO ; Start 01/16/19 at 09:00; Status Hold Atorvastatin Calcium (Lipitor) 40 mg HS PO Last administered on 01/24/19 20:20 ; Admin Dose 40 MG; Start 01/15/19 at 21:00 Nitroglycerin (Nitroglycerin 2% Oint) 0.5 inch Q8 TD Last administered on 01/16/19 01:23; Admin Dose 0.5 INCH; Start 01/16/19 at 01:00; Status Hold Oxycodone/ Acetaminophen (Percocet (5/ 325)) 1 tab Q4H PRN PO PAIN; Start 01/16/19 at 11:00 Al Hydrox/Mg Hydrox/Simethicone (Mag-Al Plus) 30 ml Q4H PRN PO GASTROINTESTINAL UPSET; Start 01/16/19 at 11:00 Oxycodone/ Acetaminophen (Percocet (5/ 325)) 1 tab Q3H PRN PO PAIN LEVEL 1-5; Start 01/16/19 at 17:30 Oxycodone/ Acetaminophen (Percocet (5/ 325)) 2 tab Q3H PRN PO PAIN LEVEL 6-10 Last administered on 01/21/19at 00:49; Admin Dose 2 TAB; Start 01/16/19 at 17:30 Ondansetron HCl (Zofran Inj) 4 mg Q6H PRN IV NAUSEA AND/OR VOMITING; Start 01/16/19 at 17:30 Famotidine (Pepcid) 20 mg BID PO Last administered on 01/25/19at 08:11; Admin Dose 20 MG; Start 01/16/19 at 21:00 Aspirin (Aspirin) 325 mg DAILY PO Last administered on 01/25/19 08:10; Admin Dose 325 MG; Start 01/17/19 at 09:00 Acetaminophen (Tylenol Tab) 650 mg Q3H PRN PO ELEVATED TEMPERATURE Last administered on 01/24/19 20:19; Admin Dose 650 MG; Start 01/16/19 at 17:30 Potassium Chloride 50 ml @ 50 mls/hr SEE DIRECTION PRN IVPB K+ LEVEL Last ad ministered on 01/17/19at 09:51; Admin Dose 50 MLS/HR; Start 01/16/19 at 17:30 Magnesium Sulfate/ Dextrose 100 ml @ 100 mls/hr PRN PRN IVPB PENDING LAB VALUE; Start 01/16/19 at 17:30 Albumin Human 250 ml @ 250 mls/hr PRN PRN IV CVP <10 Last administered on 01/17/19at 22:36; Admin Dose 250 MLS/HR; Start 01/17/19 at 01:00 Morphine Sulfate (morphine) 2 mg Q4H PRN IV SEVERE PAIN LEVEL 7-10 Last administered on 4/12/19at 17:59; Admin Dose 2 MG; Start 01/18/19 at 16:00 Miscellaneous Information 1 ea NOTE XX ; Start 01/18/19 at 17:00 Glucose (Glutose) 15 gm Q15M PRN PO DECREASED GLUCOSE; Start 01/18/19 at 17:00 Glucose (Glutose) 22.5 gm Q15M PRN PO DECREASED GLUCOSE; Start 01/18/19 at 17:00 Dextrose (D50w Syringe) 25 ml Q15M PRN IV DECREASED GLUCOSE; Start 01/18/19 at 17:00 Dextrose (D50w Syringe) 50 ml Q15M PRN IV DECREASED GLUCOSE; Start 01/18/19 at 17:00 Glucagon (Glucagen) 1 mg Q15M PRN IM DECREASED GLUCOSE; Start 01/18/19 at 17:00 Glucose (Glutose) 15 gm Q15M PRN BUCCAL DECREASED GLUCOSE; Start 01/18/19 at 17:00 Levalbuterol (Xopenex Neb) 0.63 mg Q4H RESP THERAPY PRN HHN SHORTNESS OF BREATH Last administered on 01/19/19at 03:03; Admin Dose 0.63 MG; Start 01/19/19 at 02:30 Ipratropium [place] (Atrovent 0.02% (Neb)) 0.5 mg Q4H RESP THERAPY PRN HHN SHORTNESS OF BREATH Last administered on 01/19/19at 03:03; Admin Dose 0.5 MG; Start 01/19/19 at 02:30 Enoxaparin Sodium (Lovenox) 40 mg DAILY SC Last administered on 01/25/19at 08:35; Admin Dose 40 MG; Start 01/19/19 at 09:00 Clopidogrel Bisulfate (plaVIX) 75 mg DAILY PO Last administered on 01/25/19at 08:10; Admin Dose 75 MG; Start 01/19/19 at 09:00 Diagnostic Test (Pha) (Accu-Chek) 1 ea 02 XX Last administered on 01/20/19at 02: 39; Admin Dose 1 EA; Start 01/20/19 at 02:00 Insulin Aspart (Novolog Insulin Pen) NOVOLOG *MILD* ALGORITHM WITH MEALS BEDTIME SC Last administered on 01/24/19at 11:56; Admin Dose 1 UNIT; Start 01/19/19 at 21:00 Levofloxacin (Levaquin) 500 mg DAILY@06 PO Last administered on 01/25/19at 05:27; Admin Dose 500 MG; Start 01/24/19 at 06:00 Lisinopril (Zestril) 5 mg BID PO Last administered on 01/25/19at 08:16; Admin Dose 5 MG; Start 01/24/19 at 21:00 Metoprolol Tartrate (Lopressor) 12.5 mg BID PO Last administered on 01/25/19at 08:14; Admin Dose 12.5 MG; Start 01/24/19 at 21:00 NORMA PRINCE NP Jan 25, 2019 13:54
--- NOTE | 2019-01-25 14:44 | CONS ---
Assessment/Plan Assessment/Plan Hospital Course (Demo Recall) IMPRESSION: 1. Non-ST myocardial infarction with up trending cardiac enzymes.-overnight and then this am patient with uptrending cardiac enzymes. Now s/p LHC with mutivessel CAD and enmergent echo with decreased EF 30-35%. Now post-op day #2 s/p cabg x 4(ENRIQUEZ-LAD, SVG-PDA, SVG-OM, SVG-Ramus) 2. Chest pain secondary to #1.-ongoing 3. Abnormal electrocardiogram with anterolateral deep ST depressions. 4. Hypertension-labile but currently reasonable 5. Dyslipidemia. 6. Benign prostatic hypertrophy. 7. Prostate carcinoma. 8. History of hematuria recently. 9. CHF-systolic acute Recc: -On tele -Continue asa/statin/plavix -Continue BB/ACEI -follow volume status closely with spot dosing of lasix as necessary -Continue abx's and f/u cx data Consultation Date/Type/Reason Admit Date/Time Jan 15, 2019 at 01:24 Initial Consult Date 01/15/19 Type of Consult Cardiology Reason for Consultation cad s/p cabg Requesting Provider: NEFTALI LYNN Date/Time of Note DATE: 01/25/19 TIME: 14:41 Exam/Review of Systems Vital Signs Vitals Vital Signs Date Temp Pulse Resp B/P (MAP) Pulse Ox O2 O2 Flow FiO2 Time Delivery Rate 01/25/19 83 13:28 01/25/19 98.2 19 109/55 97 11:41 (73) 01/25/19 Nasal 03:47 Cannula 01/25/19 2.0 01:32 01/22/19 27 02:18 Intake and Output 01/24/19 01/24/19 01/25/19 1515:00 23:00 07:00 IntakeIntake Total 800 ml 500 ml OutputOutput Total 500 ml 550 ml BalanceBalance 300 ml -50 ml Exam Exam Review of Systems: CONSTITUTIONAL: No fevers, chills. PULMONARY: No sob CARDIOVASCULAR: No chest pain/palpitations GASTROINTESTINAL: No nausea/vomiting. GENITOURINARY: No hematuria/dysuria. MUSCULOSKELETAL: No myagias/arthalgias. PSYCHIATRIC: The patient denies depression. NEUROLOGIC: No weakness Constitutional: alert, oriented Psych: no complaints Head: normocephalic ENMT: mucosa pink and moist Neck: supple, jvd (9 cm water) Respiratory: clear to auscultation Cardiovascular: regular rate and rhythm, other (midline stenotomy c/d/i ? retained suture at top of sternotomy) Gastrointestinal: soft, non-tender Musculoskeletal: muscle tone (normal) Extremities: edema (none) Neurological: other (no focal deficits) Labs Result Diagram: 01/25/19 0623 01/24/19 0751 Results 24hrs Laboratory Tests Test 01/24/19 17:42 01/24/19 20:39 01/25/19 06:23 01/25/19 08:08 Bedside Glucose 98 133 128 White Blood Count 10.9 H Red Blood Count 3.11 L Hemoglobin 9.1 L Hematocrit 28.0 L Mean Corpuscular 90.0 Volume Mean Corpuscular 29.3 Hemoglobin Mean Corpuscular 32.5 Hemoglobin Concent Red Cell 14.7 H Distribution Width Platelet Count 378 Mean Platelet Volume 10.3 Immature 1.900 H Granulocytes % Neutrophils % 66.0 Lymphocytes % 15.7 Monocytes % 11.1 H Eosinophils % 4.8 Basophils % 0.5 Nucleated Red Blood 0.0 Cells % Immature 0.210 H Granulocytes # Neutrophils # 7.2 Lymphocytes # 1.7 Monocytes # 1.2 H Eosinophils # 0.5 Basophils # 0.1 Nucleated Red Blood 0.0 Cells # Test 01/25/19 11:52 Bedside Glucose 100 Medications Medications Current Medications IV Flush (NS 3 ml) 3 ml PER PROTOCOL IV ; Start 01/15/19 at 01:30 Nitroglycerin (Nitroglycerin (Sl Tab) 0.4 Mg) 1 tab Q5M PRN SL .CHEST PAIN Last administered on 01/18/19at 23:22; Admin Dose 1 TAB; Start 01/15/19 at 01:30 Docusate Sodium (Colace) 100 mg Q12H PRN PO .CONSTIPATION; Start 01/15/19 at 01:30 Bisacodyl (Dulcolax) 5 mg DAILY PRN PO .CONSTIPATION Last administered on 01/24/19at 20:18; Admin Dose 5 MG; Start 01/15/19 at 01:30 Bicalutamide (Casodex) 50 mg DAILY PO Last administered on 01/25/19at 08:28; Admin Dose 50 MG; Start 01/16/19 at 09:00 Tamsulosin HCl (Flomax) 0.4 mg BID PO Last administered on 01/25/19 08:11; Admin Dose 0.4 MG; Start 01/15/19 at 21:00 Terazosin HCl (Hytrin) 5 mg HS PO Last administered on 01/15/19at 20:43; Admin Dose 5 MG; Start 01/15/19 at 21:00; Status Hold Amlodipine Besylate (Norvasc) 10 mg DAILY PO ; Start 01/16/19 at 09:00; Status Hold Atorvastatin Calcium (Lipitor) 40 mg HS PO Last administered on 01/24/19 20:20; Admin Dose 40 MG; Start 01/15/19 at 21:00 Nitroglycerin (Nitroglycerin 2% Oint) 0.5 inch Q8 TD Last administered on 01/16/19at 01:23; Admin Dose 0.5 INCH; Start 01/16/19 at 01:00; Status Hold Oxycodone/ Acetaminophen (Percocet (5/ 325)) 1 tab Q4H PRN PO PAIN; Start 01/16/19 at 11:00 Al Hydrox/Mg Hydrox/Simethicone (Mag-Al Plus) 30 ml Q4H PRN PO GASTROINTESTINAL UPSET; Start 01/16/19 at 11:00 Oxycodone/ Acetaminophen (Percocet (5/ 325)) 1 tab Q3H PRN PO PAIN LEVEL 1-5; Start 01/16/19 at 17:30 Oxycodone/ Acetaminophen (Percocet (5/ 325)) 2 tab Q3H PRN PO PAIN LEVEL 6-10 Last administered on 01/21/19at 00:49; Admin Dose 2 TAB; Start 01/16/19 at 17:30 Ondansetron HCl (Zofran Inj) 4 mg Q6H PRN IV NAUSEA AND/OR VOMITING; Start 01/16/19 at 17:30 Famotidine (Pepcid) 20 mg BID PO Last administered on 01/25/19at 08:11; Admin Dose 20 MG; Start 01/16/19 at 21:00 Aspirin (Aspirin) 325 mg DAILY PO Last administered on 01/25/19at 08:10; Admin Dose 325 MG; Start 01/17/19 at 09:00 Acetaminophen (Tylenol Tab) 650 mg Q3H PRN PO ELEVATED TEMPERATURE Last administered on 01/24/19at 20:19; Admin Dose 650 MG; Start 01/16/19 at 17:30 Potassium Chloride 50 ml @ 50 mls/hr SEE DIRECTION PRN IVPB K+ LEVEL Last administered on 01/17/19at 09:51; Admin Dose 50 MLS/HR; Start 01/16/19 at 17:30 Magnesium Sulfate/ Dextrose 100 ml @ 100 mls/hr PRN PRN IVPB PENDING LAB VALUE; Start 01/16/19 at 17:30 Albumin Human 250 ml @ 250 mls/hr PRN PRN IV CVP <10 Last administered on 01/17/19at 22:36; Admin Dose 250 MLS/HR; Start 01/17/19 at 01:00 Morphine Sulfate (morphine) 2 mg Q4H PRN IV SEVERE PAIN LEVEL 7-10 Last administered on 01/20/19at 17:59; Admin Dose 2 MG; Start 01/18/19 at 16:00 Miscellaneous Information 1 ea NOTE XX ; Start 01/18/19 at 17:00 Glucose (Glutose) 15 gm Q15M PRN PO DECREASED GLUCOSE; Start 01/18/19 at 17:00 Glucose (Glutose) 22.5 gm Q15M PRN PO DECREASED GLUCOSE; Start 01/18/19 at 17:00 Dextrose (D50w Syringe) 25 ml Q15M PRN IV DECREASED GLUCOSE; Start 01/18/19 at 17:00 Dextrose (D50w Syringe) 50 ml Q15M PRN IV DECREASED GLUCOSE; Start 01/18/19 at 17:00 Glucagon (Glucagen) 1 mg Q15M PRN IM DECREASED GLUCOSE; Start 01/18/19 at 17:00 Glucose (Glutose) 15 gm Q15M PRN BUCCAL DECREASED GLUCOSE; Start 01/18/19 at 17:00 Levalbuterol (Xopenex Neb) 0.63 mg Q4H RESP THERAPY PRN HHN SHORTNESS OF BREATH Last administered on 01/19/19at 03:03; Admin Dose 0.63 MG; Start 01/19/19 at 02:30 Ipratropium [place] (Atrovent 0.02% (Neb)) 0.5 mg Q4H RESP THERAPY PRN HHN SHORTNESS OF BREATH Last administered on 01/19/19at 03:03; Admin Dose 0.5 MG; Start 01/19/19 at 02:30 Enoxaparin Sodium (Lovenox) 40 mg DAILY SC Last administered on 01/25/19at 08:35; Admin Dose 40 MG; Start 01/19/19 at 09:00 Clopidogrel Bisulfate (plaVIX) 75 mg DAILY PO Last administered on 01/25/19 08:10; Admin Dose 75 MG; Start 01/19/19 at 09:00 Diagnostic Test (Pha) (Accu-Chek) 1 ea 02 XX Last administered on 01/20/19at 02:39; Admin Dose 1 EA; Start 01/20/19 at 02:00 Insulin Aspart (Novolog Insulin Pen) NOVOLOG *MILD* ALGORITHM WITH MEALS BEDTIME SC Last administered on 01/24/19 11:56; Admin Dose 1 UNIT; Start 01/19/19 at 21:00 Levofloxacin (Levaquin) 500 mg DAILY@06 PO Last administered on 01/25/19at 05:27; Admin Dose 500 MG; Start 01/24/19 at 06:00 Lisinopril (Zestril) 5 mg BID PO Last administered on 01/25/19 08:16; Admin Dose 5 MG; Start 01/24/19 at 21:00 Metoprolol Tartrate (Lopressor) 12.5 mg BID PO Last administered on 01/25/19at 08:14; Admin Dose 12.5 MG; Start 01/24/19 at 21:00 NEFTALI LYNN Jan 25, 2019 14:44
--- NOTE | 2019-01-25 15:23 | CONS ---
Consult Date/Type/Reason Admit Date/Time Jan 15, 2019 at 01:24 Initial Consult Date 01/17/19 Type of Consult Pulmonary Requesting Provider: NEFTALI LYNN Date/Time of Note DATE: 01/25/19 TIME: 15:22 Subjective Remains comfortable. Mild exertional dyspnea. Objective Vital Signs Date Temp Pulse Resp B/P (MAP) Pulse Ox O2 O2 Flow FiO2 Time Delivery Rate 01/25/19 2.0 14:41 01/25/19 83 13:28 01/25/19 98.2 19 109/55 97 11:41 (73) 01/25/19 Nasal 03:47 Cannula 01/22/19 27 02:18 Intake and Output 01/24/19 01/24/19 01/25/19 1515:00 23:00 07:00 IntakeIntake Total 800 ml 500 ml OutputOutput Total 500 ml 550 ml BalanceBalance 300 ml -50 ml Exam GENERAL: Well-nourished well-developed gentleman comfortable at rest VITAL SIGNS: per chart NECK: Supple. No JVD or lymphadenopathy. CARDIAC EXAM: S1, S2. No added sounds or murmurs. CHEST: Diminished air entry at bases ABDOMEN: Soft, nontender. No guarding or rebound. EXTREMITIES: No cyanosis, clubbing or edema. NEUROLOGIC: Generalized weakness. No focal deficits. Vent Setting Ventilator Support Mode: CPAP, PS Fraction of Inspired Oxygen pe: 27 Positive End Expiratory Pressu: 5.0 Results/Medications Result Diagram: 01/25/19 0623 01/24/19 0751 Results 24 hrs Laboratory Tests Test 01/24/19 17:42 01/24/19 20:39 01/25/19 06:23 01/25/19 08:08 Bedside Glucose 98 133 128 White Blood Count 10.9 H Red Blood Count 3.11 L Hemoglobin 9.1 L Hematocrit 28.0 L Mean Corpuscular 90.0 Volume Mean Corpuscular 29.3 Hemoglobin Mean Corpuscular 32.5 Hemoglobin Concent Red Cell 14.7 H Distribution Width Platelet Count 378 Mean Platelet Volume 10.3 Immature 1.900 H Granulocytes % Neutrophils % 66.0 Lymphocytes % 15.7 Monocytes % 11.1 H Eosinophils % 4.8 Basophils % 0.5 Nucleated Red Blood 0.0 Cells % Immature 0.210 H Granulocytes # Neutrophils # 7.2 Lymphocytes # 1.7 Monocytes # 1.2 H Eosinophils # 0.5 Basophils # 0.1 Nucleated Red Blood 0.0 Cells # Test 01/25/19 11:52 Bedside Glucose 100 Medications Current Medications IV Flush (NS 3 ml) 3 ml PER PROTOCOL IV ; Start 01/15/19 at 01:30 Nitroglycerin (Nitroglycerin (Sl Tab) 0.4 Mg) 1 tab Q5M PRN SL .CHEST PAIN Last administered on 01/18/19 23:22; Admin Dose 1 TAB; Start 01/15/19 at 01:30 Docusate Sodium (Colace) 100 mg Q12H PRN PO .CONSTIPATION; Start 01/15/19 at 01:30 Bisacodyl (Dulcolax) 5 mg DAILY PRN PO .CONSTIPATION Last administered on 01/24/19 20:18; Admin Dose 5 MG; Start 01/15/19 at 01:30 Bicalutamide (Casodex) 50 mg DAILY PO Last administered on 01/25/19 08:28; Admin Dose 50 MG; Start 01/16/19 at 09:00 Tamsulosin HCl (Flomax) 0.4 mg BID PO Last administered on 01/25/19 08:11; Admin Dose 0.4 MG; Start 01/15/19 at 21:00 Terazosin HCl (Hytrin) 5 mg HS PO Last administered on 01/15/19at 20:43; Admin Dose 5 MG; Start 01/15/19 at 21:00; Status Hold Amlodipine Besylate (Norvasc) 10 mg DAILY PO ; Start 01/16/19 at 09:00; Status Hold Atorvastatin Calcium (Lipitor) 40 mg HS PO Last administered on 01/24/19 20:20; Admin Dose 40 MG; Start 01/15/19 at 21:00 Nitroglycerin (Nitroglycerin 2% Oint) 0.5 inch Q8 TD Last administered on 01/16/19 01:23; Admin Dose 0.5 INCH; Start 01/16/19 at 01:00; Status Hold Oxycodone/ Acetaminophen (Percocet (5/ 325)) 1 tab Q4H PRN PO PAIN; Start 01/16/19 at 11:00 Al Hydrox/Mg Hydrox/Simethicone (Mag-Al Plus) 30 ml Q4H PRN PO GASTROINTESTINAL UPSET; Start 01/16/19 at 11:00 Oxycodone/ Acetaminophen (Percocet (5/ 325)) 1 tab Q3H PRN PO PAIN LEVEL 1-5; Start 01/16/19 at 17:30 Oxycodone/ Acetaminophen (Percocet (5/ 325)) 2 tab Q3H PRN PO PAIN LEVEL 6-10 Last administered on 01/21/19at 00:49; Admin Dose 2 TAB; Start 01/16/19 at 17:30 Ondansetron HCl (Zofran Inj) 4 mg Q6H PRN IV NAUSEA AND/OR VOMITING; Start 01/16/19 at 17:30 Famotidine (Pepcid) 20 mg BID PO Last administered on 01/25/19at 08:11; Admin Do se 20 MG; Start 01/16/19 at 21:00 Aspirin (Aspirin) 325 mg DAILY PO Last administered on 01/25/19at 08:10; Admin Dose 325 MG; Start 01/17/19 at 09:00 Acetaminophen (Tylenol Tab) 650 mg Q3H PRN PO ELEVATED TEMPERATURE Last administered on 01/24/19at 20:19; Admin Dose 650 MG; Start 01/16/19 at 17:30 Potassium Chloride 50 ml @ 50 mls/hr SEE DIRECTION PRN IVPB K+ LEVEL Last administered on 01/17/19at 09:51; Admin Dose 50 MLS/HR; Start 01/16/19 at 17:30 Magnesium Sulfate/ Dextrose 100 ml @ 100 mls/hr PRN PRN IVPB PENDING LAB VALUE; Start 01/16/19 at 17:30 Albumin Human 250 ml @ 250 mls/hr PRN PRN IV CVP <10 Last administered on 01/17/19at 22:36; Admin Dose 250 MLS/HR; Start 01/17/19 at 01:00 Morphine Sulfate (morphine) 2 mg Q4H PRN IV SEVERE PAIN LEVEL 7-10 Last administered on 01/20/19at 17:59; Admin Dose 2 MG; Start 01/18/19 at 16:00 Miscellaneous Information 1 ea NOTE XX ; Start 01/18/19 at 17:00 Glucose (Glutose) 15 gm Q15M PRN PO DECREASED GLUCOSE; Start 01/18/19 at 17:00 Glucose (Glutose) 22.5 gm Q15M PRN PO DECREASED GLUCOSE; Start 01/18/19 at 17:00 Dextrose (D50w Syringe) 25 ml Q15M PRN IV DECREASED GLUCOSE; Start 01/18/19 at 17:00 Dextrose (D50w Syringe) 50 ml Q15M PRN IV DECREASED GLUCOSE; Start 01/18/19 at 17:00 Glucagon (Glucagen) 1 mg Q15M PRN IM DECREASED GLUCOSE; Start 01/18/19 at 17:00 Glucose (Glutose) 15 gm Q15M PRN BUCCAL DECREASED GLUCOSE; Start 01/18/19 at 17:00 Levalbuterol (Xopenex Neb) 0.63 mg Q4H RESP THERAPY PRN HHN SHORTNESS OF BREATH Last administered on 01/19/19at 03:03; Admin Dose 0.63 MG; Start 01/19/19 at 02:30 Ipratropium [place] (Atrovent 0.02% (Neb)) 0.5 mg Q4H RESP THERAPY PRN HHN SHORTNESS OF BREATH Last administered on 01/19/19at 03:03; Admin Dose 0.5 MG; Start 01/19/19 at 02:30 Enoxaparin Sodium (Lovenox) 40 mg DAILY SC Last administered on 01/25/19at 08:35; Admin Dose 40 MG; Start 01/19/19 at 09:00 Clopidogrel Bisulfate (plaVIX) 75 mg DAILY PO Last administered on 01/25/19at 08:10; Admin Dose 75 MG; Start 01/19/19 at 09:00 Diagnostic Test (Pha) (Accu-Chek) 1 ea 02 XX Last administered on 01/20/19at 02:39; Admin Dose 1 EA; Start 01/20/19 at 02:00 Insulin Aspart (Novolog Insulin Pen) NOVOLOG *MILD* ALGORITHM WITH MEALS BEDTIME SC Last administered on 01/24/19at 11:56; Admin Dose 1 UNIT; Start 01/19/19 at 21:00 Levofloxacin (Levaquin) 500 mg DAILY@06 PO Last administered on 01/25/19at 05:27; Admin Dose 500 MG; Start 01/24/19 at 06:00 Lisinopril (Zestril) 5 mg BID PO Last administered on 01/25/19at 08:16; Admin Dose 5 MG; Start 01/24/19 at 21:00 Metoprolol Tartrate (Lopressor) 12.5 mg BID PO Last administered on 01/25/19at 08:14; Admin Dose 12.5 MG; Start 01/24/19 at 21:00 Assessment/Plan Hospital Course (Demo Recall) assessment 1. Coronary artery disease status post acute coronary artery bypass graft surgery 2. Status post shock likely combination of cardiogenic and septic. 3. Chest CT demonstrates moderate right pleural effusion. Repeat chest x-ray shows small to moderate right pleural effusion. 4. Improved acute hypoxemic respiratory failure 5. History of prostate cancer Plan 1. Incentive spirometry and chest PT 2. Encourage out of bed 3. Aspiration precautions DC planning. LA GEE MD, [facility] Jan 25, 2019 15:23
--- NOTE | 2019-01-25 16:29 | PN ---
Date/Time of Note Date/Time of Note DATE: 01/25/19 TIME: 16:23 Assessment/Plan VTE Prophylaxis Risk score (from Ns)>0 risk: 10 SCD applied (from Nsg): Yes Pharmacological prophylaxis: other Lines/Catheters IV Catheter Type (from Nrsg): [place] Lock Urinary Cath still in place: No Assessment/Plan Assessment/Plan 1. Non-ST elevation [place], status post left heart cath and now multivessel intervention with open heart surgery done January 16, 2019 - Cardiology on board and appreciate recommendations - pain control - ECHO from November 2018 shows an ejection fraction of roughly 35-40% with diastolic dysfunction. 2. Sepsis secondary to UTI- resolved - UA results noted. repeat urine cx negative - may be catheter related given had one in place for 2 months - ID on board and will continue Levaquin for 3 more days 3. Bacteremia secondary to UTI- resolved - continue current antibiotics. repeat cx negative 4. Urinary retention - Acute on chronic - okay for straight cath if >400 residual and patient feels bladder pressure. has hx prostate CA 5. H/o Prostate cancer - follows with [facility] - Patient received Lupron Depo injection before admission 6. HTN - continue meds per cardiology 7. CM - continue meds per cardiology 8. Disposition - ARU evaluation pending and if not accepted CM on board for SNF Result Diagram: 01/25/19 0623 01/24/19 0751 Results 24hrs Laboratory Tests Test 01/24/19 17:42 01/24/19 20:39 01/25/19 06:23 01/25/19 08:08 Bedside Glucose 98 133 128 White Blood Count 10.9 H Red Blood Count 3.11 L Hemoglobin 9.1 L Hematocrit 28.0 L Mean Corpuscular 90.0 Volume Mean Corpuscular 29.3 Hemoglobin Mean Corpuscular 32.5 Hemoglobin Concent Red Cell 14.7 H Distribution Width Platelet Count 378 Mean Platelet Volume 10.3 Immature 1.900 H Granulocytes % Neutrophils % 66.0 Lymphocytes % 15.7 Monocytes % 11.1 H Eosinophils % 4.8 Basophils % 0.5 Nucleated Red Blood 0.0 Cells % Immature 0.210 H Granulocytes # Neutrophils # 7.2 Lymphocytes # 1.7 Monocytes # 1.2 H Eosinophils # 0.5 Basophils # 0.1 Nucleated Red Blood 0.0 Cells # Test 01/25/19 11:52 Bedside Glucose 100 Subjective 24 Hr Interval Summary Free Text/Dictation Patient states hes feeling better today and able to walk with PT without dizziness. No acute overnight events. Exam/Review of Systems Exam Vitals Vital Signs Date Temp Pulse Resp B/P (MAP) Pulse Ox O2 O2 Flow FiO2 Time Delivery Rate 01/25/19 97.8 85 18 105/58 94 15:35 (74) 01/25/19 2.0 14:41 01/25/19 Nasal 03:47 Cannula 01/22/19 27 02:18 Intake and Output 01/24/19 01/24/19 01/25/19 1515:00 23:00 07:00 IntakeIntake Total 800 ml 500 ml OutputOutput Total 500 ml 550 ml BalanceBalance 300 ml -50 ml Exam General: Patient is laying in bed and answering questions appropriately Mentation: Patient is alert and oriented Neck: Supple, nontender, midline Respiratory: Diminished breath sounds. no wheezing Cardiovascular: regular rate and rhythm, no obvious murmurs Gastrointestinal: soft, non-tender to palpation, bowel sounds heard. Neurological: Able to move all extremities Skin: No new skin lesions. surgical incision clean and dry Results Results 24hrs Laboratory Tests Test 01/24/19 17:42 01/24/19 20:39 01/25/19 06:23 01/25/19 08:08 Bedside Glucose 98 133 128 White Blood Count 10.9 H Red Blood Count 3.11 L Hemoglobin 9.1 L Hematocrit 28.0 L Mean Corpuscular 90.0 Volume Mean Corpuscular 29.3 Hemoglobin Mean Corpuscular 32.5 Hemoglobin Concent Red Cell 14.7 H Distribution Width Platelet Count 378 Mean Platelet Volume 10.3 Immature 1.900 H Granulocytes % Neutrophils % 66.0 Lymphocytes % 15.7 Monocytes % 11.1 H Eosinophils % 4.8 Basophils % 0.5 Nucleated Red Blood 0.0 Cells % Immature 0.210 H Granulocytes # Neutrophils # 7.2 Lymphocytes # 1.7 Monocytes # 1.2 H Eosinophils # 0.5 Basophils # 0.1 Nucleated Red Blood 0.0 Cells # Test 01/25/19 11:52 Bedside Glucose 100 Medications Medication Current Medications IV Flush (NS 3 ml) 3 ml PER PROTOCOL IV ; Start 01/15/19 at 01:30 Nitroglycerin (Nitroglycerin (Sl Tab) 0.4 Mg) 1 tab Q5M PRN SL .CHEST PAIN Last administered on 01/18/19 23:22; Admin Dose 1 TAB; Start 01/15/19 at 01:30 Docusate Sodium (Colace) 100 mg Q12H PRN PO .CONSTIPATION; Start 01/15/19 at 01:30 Bisacodyl (Dulcolax) 5 mg DAILY PRN PO .CONSTIPATION Last administered on 01/24/19 20:18; Admin Dose 5 MG; Start 01/15/19 at 01:30 Bicalutamide (Casodex) 50 mg DAILY PO Last administered on 01/25/19 08:28; Admin Dose 50 MG; Start 01/16/19 at 09:00 Tamsulosin HCl (Flomax) 0.4 mg BID PO Last administered on 01/25/19 08:11; Admin Dose 0.4 MG; Start 01/15/19 at 21:00 Terazosin HCl (Hytrin) 5 mg HS PO Last administered on 01/15/19 20:43; Admin Dose 5 MG; Start 01/15/19 at 21:00; Status Hold Amlodipine Besylate (Norvasc) 10 mg DAILY PO ; Start 01/16/19 at 09:00; Status Hold Atorvastatin Calcium (Lipitor) 40 mg HS PO Last administered on 01/24/19 20:20; Admin Dose 40 MG; Start 01/15/19 at 21:00 Nitroglycerin (Nitroglycerin 2% Oint) 0.5 inch Q8 TD Last administered on 01/16/19 01:23; Admin Dose 0.5 INCH; Start 01/16/19 at 01:00; Status Hold Oxycodone/ Acetaminophen (Percocet (5/ 325)) 1 tab Q4H PRN PO PAIN; Start 01/16/19 at 11:00 Al Hydrox/Mg Hydrox/Simethicone (Mag-Al Plus) 30 ml Q4H PRN PO GASTROINTESTINAL UPSET; Start 01/16/19 at 11:00 Oxycodone/ Acetaminophen (Percocet (5/ 325)) 1 tab Q3H PRN PO PAIN LEVEL 1-5; Start 01/16/19 at 17:30 Oxycodone/ Acetaminophen (Percocet (5/ 325)) 2 tab Q3H PRN PO PAIN LEVEL 6-10 Last administered on 4/13/19at 00:49; Admin Dose 2 TAB; Start 01/16/19 at 17:30 Ondansetron HCl (Zofran Inj) 4 mg Q6H PRN IV NAUSEA AND/OR VOMITING; Start 01/16/19 at 17:30 Famotidine (Pepcid) 20 mg BID PO Last administered on 01/25/19at 08:11; Admin Dose 20 MG; Start 01/16/19 at 21:00 Aspirin (Aspirin) 325 mg DAILY PO Last administered on 01/25/19at 08:10; Admin Dose 325 MG; Start 01/17/19 at 09:00 Acetaminophen (Tylenol Tab) 650 mg Q3H PRN PO ELEVATED TEMPERATURE Last administered on 01/24/19at 20:19; Admin Dose 650 MG; Start 01/16/19 at 17:30 Potassium Chloride 50 ml @ 50 mls/hr SEE DIRECTION PRN IVPB K+ LEVEL Last administered on 01/17/19at 09:51; Admin Dose 50 MLS/HR; Start 01/16/19 at 17:30 Magnesium Sulfate/ Dextrose 100 ml @ 100 mls/hr PRN PRN IVPB PENDING LAB VALUE; Start 01/16/19 at 17:30 Albumin Human 250 ml @ 250 mls/hr PRN PRN IV CVP <10 Last administered on 01/17/19at 22:36; Admin Dose 250 MLS/HR; Start 01/17/19 at 01:00 Morphine Sulfate (morphine) 2 mg Q4H PRN IV SEVERE PAIN LEVEL 7-10 Last administered on 01/20/19at 17:59; Admin Dose 2 MG; Start 01/18/19 at 16:00 Miscellaneous Information 1 ea NOTE XX ; Start 01/18/19 at 17:00 Glucose (Glutose) 15 gm Q15M PRN PO DECREASED GLUCOSE; Start 01/18/19 at 17:00 Glucose (Glutose) 22.5 gm Q15M PRN PO DECREASED GLUCOSE; Start 01/18/19 at 17:00 Dextrose (D50w Syringe) 25 ml Q15M PRN IV DECREASED GLUCOSE; Start 01/18/19 at 17:00 Dextrose (D50w Syringe) 50 ml Q15M PRN IV DECREASED GLUCOSE; Start 01/18/19 at 17:00 Glucagon (Glucagen) 1 mg Q15M PRN IM DECREASED GLUCOSE; Start 01/18/19 at 17:00 Glucose (Glutose) 15 gm Q15M PRN BUCCAL DECREASED GLUCOSE; Start 01/18/19 at 17:00 Levalbuterol (Xopenex Neb) 0.63 mg Q4H RESP THERAPY PRN HHN SHORTNESS OF BREATH Last administered on 01/19/19 03:03; Admin Dose 0.63 MG; Start 01/19/19 at 02:30 Ipratropium [place] (Atrovent 0.02% (Neb)) 0.5 mg Q4H RESP THERAPY PRN HHN SHORTNESS OF BREATH Last administered on 01/19/19 03:03; Admin Dose 0.5 MG; Start 01/19/19 at 02:30 Enoxaparin Sodium (Lovenox) 40 mg DAILY SC Last administered on 01/25/19 08:35; Admin Dose 40 MG; Start 01/19/19 at 09:00 Clopidogrel Bisulfate (plaVIX) 75 mg DAILY PO Last administered on 01/25/19 08:10; Admin Dose 75 MG; Start 01/19/19 at 09:00 Diagnostic Test (Pha) (Accu-Chek) 1 ea 02 XX Last administered on 01/20/19 02:39; Admin Dose 1 EA; Start 01/20/19 at 02:00 Insulin Aspart (Novolog Insulin Pen) NOVOLOG *MILD* ALGORITHM WITH MEALS BEDTIME SC Last administered on 01/24/19 11:56; Admin Dose 1 UNIT; Start 01/19/19 at 21:00 Levofloxacin (Levaquin) 500 mg DAILY@06 PO Last administered on 01/25/19 05:27; Admin Dose 500 MG; Start 01/24/19 at 06:00 Lisinopril (Zestril) 5 mg BID PO Last administered on 01/25/19 08:16; Admin Dose 5 MG; Start 01/24/19 at 21:00 Metoprolol Tartrate (Lopressor) 12.5 mg BID PO Last administered on 01/25/19 08:14; Admin Dose 12.5 MG; Start 01/24/19 at 21:00 MATY DE LA FUENTE MD Jan 25, 2019 16:29
[2019-01-25] MEDS: ATORVASTATIN 40 MG TAB PO SCH (20:16)
[2019-01-26] VITALS (9 sets, daily range): BP systolic 96–119; BP diastolic 55–59; PULSE 81–87; RESP 18
[2019-01-26] MEDS: ACCU-CHEK XX SCH (02:00)
[2019-01-26] MEDS: LEVOFLOXACIN 500 MG TAB PO SCH (06:10)
[2019-01-26] MEDS: INSULIN ASPART [NOVOLOG] 3 ML PEN SC SCH ×4 (07:55→21:00)
[2019-01-26] MEDS: METOPROLOL 25 MG TAB PO SCH ×2 (09:42→21:21)
[2019-01-26] MEDS: CLOPIDOGREL 75 MG TAB PO SCH (09:45)
[2019-01-26] MEDS: FAMOTIDINE 20 MG TAB PO SCH ×2 (09:45→21:20)
[2019-01-26] MEDS: ASPIRIN 325 MG TAB PO SCH (09:45)
[2019-01-26] MEDS: TAMSULOSIN (SR) 0.4 MG CAP PO SCH ×2 (09:45→21:20)
[2019-01-26] MEDS: BICALUTAMIDE 50 MG TAB PO SCH (09:47)
[2019-01-26] MEDS: ENOXAPARIN 40 MG/0.4 ML SYG SC SCH (09:47)
[2019-01-26] MEDS: LISINOPRIL 5 MG TAB PO SCH ×2 (09:49→21:21)
--- NOTE | 2019-01-26 13:27 | CONS ---
Assessment/Plan Assessment/Plan Hospital Course (Demo Recall) IMPRESSION: 1. Non-ST myocardial infarction with up trending cardiac enzymes.-overnight and then this am patient with uptrending cardiac enzymes. Now s/p LHC with mutivessel CAD and enmergent echo with decreased EF 30-35%. Now post-op day #2 s/p cabg x 4([id number], SVG-PDA, SVG-OM, SVG-Ramus) 2. Chest pain secondary to #1.-ongoing 3. Abnormal electrocardiogram with anterolateral deep ST depressions. 4. Hypertension-labile but currently reasonable 5. Dyslipidemia. 6. Benign prostatic hypertrophy. 7. Prostate carcinoma. 8. History of hematuria recently. 9. CHF-systolic acute Recc: -On tele -Continue asa/statin/plavix -Continue BB/ACEI as tolerated -follow volume status closely with spot dosing of lasix as necessary -Continue abx's and f/u cx data Consultation Date/Type/Reason Admit Date/Time Jan 15, 2019 at 01:24 Initial Consult Date 01/15/19 Type of Consult Cardiology Reason for Consultation Nstemi Requesting Provider: NEFTALI LYNN Date/Time of Note DATE: 01/26/19 TIME: 13:26 Exam/Review of Systems Vital Signs Vitals Vital Signs Date Temp Pulse Resp B/P (MAP) Pulse Ox O2 O2 Flow FiO2 Time Delivery Rate 01/26/19 99.0 81 18 98/55 (69) 98 Nasal 2.0 11:48 Cannula Intake and Output 01/25/19 01/25/19 01/26/19 1515:00 23:00 07:00 IntakeIntake Total 600 ml 400 ml OutputOutput Total 450 ml BalanceBalance 600 ml -50 ml Exam Exam Review of Systems: CONSTITUTIONAL: No fevers, chills. PULMONARY: No sob CARDIOVASCULAR: No chest pain/palpitations GASTROINTESTINAL: No nausea/vomiting. GENITOURINARY: No hematuria/dysuria. MUSCULOSKELETAL: No myagias/arthalgias. PSYCHIATRIC: The patient denies depression. NEUROLOGIC: No weakness Constitutional: alert Psych: no complaints Head: normocephalic ENMT: mucosa pink and moist Neck: supple, jvd (9 cm water) Respiratory: diminished breath sounds (at bases/B) Cardiovascular: regular rate and rhythm Gastrointestinal: soft, non-tender Musculoskeletal: muscle tone (normal) Extremities: edema (none) Neurological: other (No focal deficits) Labs Result Diagram: 01/26/19 1011 01/24/19 0751 Results 24hrs Laboratory Tests Test 01/25/19 16:58 01/25/19 20:22 01/26/19 08:39 01/26/19 10:11 Bedside Glucose 93 178 118 White Blood Count 11.0 H Red Blood Count 3.21 L Hemoglobin 9.3 L Hematocrit 29.2 L Mean Corpuscular 91.0 Volume Mean Corpuscular 29.0 Hemoglobin Mean Corpuscular 31.8 L Hemoglobin Concent Red Cell 14.7 H Distribution Width Platelet Count 374 Mean Platelet Volume 10.4 Immature 1.700 H Granulocytes % Neutrophils % 72.2 Lymphocytes % 13.7 L Monocytes % 7.5 Eosinophils % 4.4 Basophils % 0.5 Nucleated Red Blood 0.0 Cells % Immature 0.190 H Granulocytes # Neutrophils # 7.9 H Lymphocytes # 1.5 Monocytes # 0.8 Eosinophils # 0.5 Basophils # 0.1 Nucleated Red Blood 0.0 Cells # Test 01/26/19 12:05 Bedside Glucose 102 Medications Medications Current Medications IV Flush (NS 3 ml) 3 ml PER PROTOCOL IV ; Start 01/15/19 at 01:30 Nitroglycerin (Nitroglycerin (Sl Tab) 0.4 Mg) 1 tab Q5M PRN SL .CHEST PAIN Last administered on 01/18/19at 23:22; Admin Dose 1 TAB; Start 01/15/19 at 01:30 Docusate Sodium (Colace) 100 mg Q12H PRN PO .CONSTIPATION; Start 01/15/19 at 01:30 Bisacodyl (Dulcolax) 5 mg DAILY PRN PO .CONSTIPATION Last administered on 01/24/19at 20:18; Admin Dose 5 MG; Start 01/15/19 at 01:30 Bicalutamide (Casodex) 50 mg DAILY PO Last administered on 01/26/19at 09:47; Admin Dose 50 MG; Start 01/16/19 at 09:00 Tamsulosin HCl (Flomax) 0.4 mg BID PO Last administered on 01/26/19at 09:45; Admin Dose 0.4 MG; Start 01/15/19 at 21:00 Terazosin HCl (Hytrin) 5 mg HS PO Last administered on 01/15/19at 20:43; Admin Dose 5 MG; Start 01/15/19 at 21:00; Status Hold Amlodipine Besylate (Norvasc) 10 mg DAILY PO ; Start 01/16/19 at 09:00; Status Hold Atorvastatin Calcium (Lipitor) 40 mg HS PO Last administered on 01/25/19 20:16; Admin Dose 40 MG; Start 01/15/19 at 21:00 Nitroglycerin (Nitroglycerin 2% Oint) 0.5 inch Q8 TD Last administered on 01/16/19 01:23; Admin Dose 0.5 INCH; Start 01/16/19 at 01:00; Status Hold Oxycodone/ Acetaminophen (Percocet (5/ 325)) 1 tab Q4H PRN PO PAIN; Start 01/16/19 at 11:00 Al Hydrox/Mg Hydrox/Simethicone (Mag-Al Plus) 30 ml Q4H PRN PO GASTROINTESTINAL UPSET; Start 01/16/19 at 11:00 Oxycodone/ Acetaminophen (Percocet (5/ 325)) 1 tab Q3H PRN PO PAIN LEVEL 1-5; Start 01/16/19 at 17:30 Oxycodone/ Acetaminophen (Percocet (5/ 325)) 2 tab Q3H PRN PO PAIN LEVEL 6-10 Last administered on 01/21/19at 00:49; Admin Dose 2 TAB; Start 01/16/19 at 17:30 Ondansetron HCl (Zofran Inj) 4 mg Q6H PRN IV NAUSEA AND/OR VOMITING; Start 01/16/19 at 17:30 Famotidine (Pepcid) 20 mg BID PO Last administered on 01/26/19at 09:45; Admin Dose 20 MG; Start 01/16/19 at 21:00 Aspirin (Aspirin) 325 mg DAILY PO Last administered on 01/26/19 09:45; Admin Dose 325 MG; Start 01/17/19 at 09:00 Acetaminophen (Tylenol Tab) 650 mg Q3H PRN PO ELEVATED TEMPERATURE Last administered on 01/24/19 20:19; Admin Dose 650 MG; Start 01/16/19 at 17:30 Potassium Chloride 50 ml @ 50 mls/hr SEE DIRECTION PRN IVPB K+ LEVEL Last administered on 4/9/19at 09:51; Admin Dose 50 MLS/HR; Start 01/16/19 at 17:30 Magnesium Sulfate/ Dextrose 100 ml @ 100 mls/hr PRN PRN IVPB PENDING LAB VALUE; Start 01/16/19 at 17:30 Albumin Human 250 ml @ 250 mls/hr PRN PRN IV CVP <10 Last administered on 01/17/19at 22:36; Admin Dose 250 MLS/HR; Start 01/17/19 at 01:00 Morphine Sulfate (morphine) 2 mg Q4H PRN IV SEVERE PAIN LEVEL 7-10 Last administered on 01/20/19at 17:59; Admin Dose 2 MG; Start 01/18/19 at 16:00 Miscellaneous Information 1 ea NOTE XX ; Start 01/18/19 at 17:00 Glucose (Glutose) 15 gm Q15M PRN PO DECREASED GLUCOSE; Start 01/18/19 at 17:00 Glucose (Glutose) 22.5 gm Q15M PRN PO DECREASED GLUCOSE; Start 01/18/19 at 17:00 Dextrose (D50w Syringe) 25 ml Q15M PRN IV DECREASED GLUCOSE; Start 01/18/19 at 17:00 Dextrose (D50w Syringe) 50 ml Q15M PRN IV DECREASED GLUCOSE; Start 01/18/19 at 17:00 Glucagon (Glucagen) 1 mg Q15M PRN IM DECREASED GLUCOSE; Start 01/18/19 at 17:00 Glucose (Glutose) 15 gm Q15M PRN BUCCAL DECREASED GLUCOSE; Start 01/18/19 at 17:00 Levalbuterol (Xopenex Neb) 0.63 mg Q4H RESP THERAPY PRN HHN SHORTNESS OF BREATH Last administered on 01/19/19at 03:03; Admin Dose 0.63 MG; Start 01/19/19 at 02:30 Ipratropium [place] (Atrovent 0.02% (Neb)) 0.5 mg Q4H RESP THERAPY PRN HHN SHORTNESS OF BREATH Last administered on 01/19/19at 03:03; Admin Dose 0.5 MG; Start 01/19/19 at 02:30 Enoxaparin Sodium (Lovenox) 40 mg DAILY SC Last administered on 01/26/19at 09:47; Admin Dose 40 MG; Start 01/19/19 at 09:00 Clopidogrel Bisulfate (plaVIX) 75 mg DAILY PO Last administered on 01/26/19 09:45; Admin Dose 75 MG; Start 01/19/19 at 09:00 Diagnostic Test (Pha) (Accu-Chek) 1 ea 02 XX Last administered on 01/20/19 02:39; Admin Dose 1 EA; Start 01/20/19 at 02:00 Insulin Aspart (Novolog Insulin Pen) NOVOLOG *MILD* ALGORITHM WITH MEALS BEDTIME SC Last administered on 01/24/19 11:56; Admin Dose 1 UNIT; Start 01/19/19 at 21:00 Levofloxacin (Levaquin) 500 mg DAILY@06 PO Last administered on 01/26/19 06:10; Admin Dose 500 MG; Start 01/24/19 at 06:00 Lisinopril (Zestril) 5 mg BID PO Last administered on 01/26/19 09:49; Admin Dose 5 MG; Start 01/24/19 at 21:00 Metoprolol Tartrate (Lopressor) 12.5 mg BID PO Last administered on 01/26/19 09:42; Admin Dose 12.5 MG; Start 01/24/19 at 21:00 NEFTALI LYNN Jan 26, 2019 13:27
--- NOTE | 2019-01-26 14:00 | CONS ---
Assessment/Plan Assessment/Plan Hospital Course (Demo Recall) No acute changes, alert, feels ok, no fevers Antimicrobials: Levaquin Microbiology: Blood culture on admission grew Citrobacter freundii, repeat blood cultures negative sputum culture pending urine culture negative Physical examination: Well-developed well-nourished elderly man who is alert, in no distress. Head atraumatic normocephalic sclera nonicteric. Neck is supple chest rise symmetrical breath sounds CTA. Heart: S1-S2. Abdomen soft, BT active. Extremities without cyanosis. Assessment: 1. S/p septic shock, possibly cardiogenic 2. Gram-negative david bacteremia likely secondary to UTI 3. Pulmonary edema with superimposed pneumonia, possible aspiration 3. Acute OR status post emergency CABG 01/16/19 4. History of prostate cancer 5. History of hypertension 6. Acute anemia Plan: Stable, continue abx for 2 more days Consultation Date/Type/Reason Admit Date/Time Jan 15, 2019 at 01:24 Initial Consult Date 01/17/19 Type of Consult id Requesting Provider: NEFTALI LYNN Date/Time of Note DATE: 01/26/19 TIME: 13:59 Exam/Review of Systems Exam Vitals Vital Signs Date Temp Pulse Resp B/P (MAP) Pulse Ox O2 O2 Flow FiO2 Time Delivery Rate 01/26/19 85 13:43 01/26/19 99.0 18 98/55 (69) 98 Nasal 2.0 11:48 Cannula Intake and Output 01/25/19 01/25/19 01/26/19 1515:00 23:00 07:00 IntakeIntake Total 600 ml 400 ml OutputOutput Total 450 ml BalanceBalance 600 ml -50 ml Results Result Diagram: 01/26/19 1011 01/24/19 0751 Results 24hrs Laboratory Tests Test 01/25/19 16:58 01/25/19 20:22 01/26/19 08:39 01/26/19 10:11 Bedside Glucose 93 178 118 White Blood Count 11.0 H Red Blood Count 3.21 L Hemoglobin 9.3 L Hematocrit 29.2 L Mean Corpuscular 91.0 Volume Mean Corpuscular 29.0 Hemoglobin Mean Corpuscular 31.8 L Hemoglobin Concent Red Cell 14.7 H Distribution Width Platelet Count 374 Mean Platelet Volume 10.4 Immature 1.700 H Granulocytes % Neutrophils % 72.2 Lymphocytes % 13.7 L Monocytes % 7.5 Eosinophils % 4.4 Basophils % 0.5 Nucleated Red Blood 0.0 Cells % Immature 0.190 H Granulocytes # Neutrophils # 7.9 H Lymphocytes # 1.5 Monocytes # 0.8 Eosinophils # 0.5 Basophils # 0.1 Nucleated Red Blood 0.0 Cells # Test 01/26/19 12:05 Bedside Glucose 102 Medications Medication Current Medications IV Flush (NS 3 ml) 3 ml PER PROTOCOL IV ; Start 01/15/19 at 01:30 Nitroglycerin (Nitroglycerin (Sl Tab) 0.4 Mg) 1 tab Q5M PRN SL .CHEST PAIN Last administered on 01/18/19 23:22; Admin Dose 1 TAB; Start 01/15/19 at 01:30 Docusate Sodium (Colace) 100 mg Q12H PRN PO .CONSTIPATION; Start 01/15/19 at 01:30 Bisacodyl (Dulcolax) 5 mg DAILY PRN PO .CONSTIPATION Last administered on 01/24/19 20:18; Admin Dose 5 MG; Start 01/15/19 at 01:30 Bicalutamide (Casodex) 50 mg DAILY PO Last administered on 01/26/19 09:47; Admin Dose 50 MG; Start 01/16/19 at 09:00 Tamsulosin HCl (Flomax) 0.4 mg BID PO Last administered on 01/26/19 09:45; Admin Dose 0.4 MG; Start 01/15/19 at 21:00 Terazosin HCl (Hytrin) 5 mg HS PO Last administered on 01/15/19at 20:43; Admin Dose 5 MG; Start 01/15/19 at 21:00; Status Hold Amlodipine Besylate (Norvasc) 10 mg DAILY PO ; Start 01/16/19 at 09:00; Status Hold Atorvastatin Calcium (Lipitor) 40 mg HS PO Last administered on 01/25/19 20:16; Admin Dose 40 MG; Start 01/15/19 at 21:00 Nitroglycerin (Nitroglycerin 2% Oint) 0.5 inch Q8 TD Last administered on 01/16/19 01:23; Admin Dose 0.5 INCH; Start 01/16/19 at 01:00; Status Hold Oxycodone/ Acetaminophen (Percocet (5/ 325)) 1 tab Q4H PRN PO PAIN; Start 01/16/19 at 11:00 Al Hydrox/Mg Hydrox/Simethicone (Mag-Al Plus) 30 ml Q4H PRN PO GASTROINTESTINAL UPSET; Start 01/16/19 at 11:00 Oxycodone/ Acetaminophen (Percocet (5/ 325)) 1 tab Q3H PRN PO PAIN LEVEL 1-5; Start 01/16/19 at 17:30 Oxycodone/ Acetaminophen (Percocet (5/ 325)) 2 tab Q3H PRN PO PAIN LEVEL 6-10 Last administered on 01/21/19at 00:49; Admin Dose 2 TAB; Start 01/16/19 at 17:30 Ondansetron HCl (Zofran Inj) 4 mg Q6H PRN IV NAUSEA AND/OR VOMITING; Start 01/16/19 at 17:30 Famotidine (Pepcid) 20 mg BID PO Last administered on 01/26/19at 09:45; Admin Dose 20 MG; Start 01/16/19 at 21:00 Aspirin (Aspirin) 325 mg DAILY PO Last administered on 01/26/19at 09:45; Admin Dose 325 MG; Start 01/17/19 at 09:00 Acetaminophen (Tylenol Tab) 650 mg Q3H PRN PO ELEVATED TEMPERATURE Last administered on 01/24/19at 20:19; Admin Dose 650 MG; Start 01/16/19 at 17:30 Potassium Chloride 50 ml @ 50 mls/hr SEE DIRECTION PRN IVPB K+ LEVEL Last administered on 01/17/19at 09:51; Admin Dose 50 MLS/HR; Start 01/16/19 at 17:30 Magnesium Sulfate/ Dextrose 100 ml @ 100 mls/hr PRN PRN IVPB PENDING LAB VALUE; Start 01/16/19 at 17:30 Albumin Human 250 ml @ 250 mls/hr PRN PRN IV CVP <10 Last administered on 01/17/19at 22:36; Admin Dose 250 MLS/HR; Start 01/17/19 at 01:00 Morphine Sulfate (morphine) 2 mg Q4H PRN IV SEVERE PAIN LEVEL 7-10 Last administered on 01/20/19at 17:59; Admin Dose 2 MG; Start 01/18/19 at 16:00 Miscellaneous Information 1 ea NOTE XX ; Start 01/18/19 at 17:00 Glucose (Glutose) 15 gm Q15M PRN PO DECREASED GLUCOSE; Start 01/18/19 at 17:00 Glucose (Glutose) 22.5 gm Q15M PRN PO DECREASED GLUCOSE; Start 01/18/19 at 17:00 Dextrose (D50w Syringe) 25 ml Q15M PRN IV DECREASED GLUCOSE; Start 01/18/19 at 17:00 Dextrose (D50w Syringe) 50 ml Q15M PRN IV DECREASED GLUCOSE; Start 01/18/19 at 17:00 Glucagon (Glucagen) 1 mg Q15M PRN IM DECREASED GLUCOSE; Start 01/18/19 at 17:00 Glucose (Glutose) 15 gm Q15M PRN BUCCAL DECREASED GLUCOSE; Start 01/18/19 at 17:00 Levalbuterol (Xopenex Neb) 0.63 mg Q4H RESP THERAPY PRN HHN SHORTNESS OF BREATH Last administered on 01/19/19at 03:03; Admin Dose 0.63 MG; Start 01/19/19 at 02:30 Ipratropium [place] (Atrovent 0.02% (Neb)) 0.5 mg Q4H RESP THERAPY PRN HHN SHORTNESS OF BREATH Last administered on 01/19/19at 03:03; Admin Dose 0.5 MG; Start 01/19/19 at 02:30 Enoxaparin Sodium (Lovenox) 40 mg DAILY SC Last administered on 01/26/19at 09:47; Admin Dose 40 MG; Start 01/19/19 at 09:00 Clopidogrel Bisulfate (plaVIX) 75 mg DAILY PO Last administered on 01/26/19at 09:45; Admin Dose 75 MG; Start 01/19/19 at 09:00 Diagnostic Test (Pha) (Accu-Chek) 1 ea 02 XX Last administered on 01/20/19at 02:39; Admin Dose 1 EA; Start 01/20/19 at 02:00 Insulin Aspart (Novolog Insulin Pen) NOVOLOG *MILD* ALGORITHM WITH MEALS BEDTIME SC Last administered on 01/24/19at 11:56; Admin Dose 1 UNIT; Start 01/19/19 at 21:00 Levofloxacin (Levaquin) 500 mg DAILY@06 PO Last administered on 01/26/19at 06:10; Admin Dose 500 MG; Start 01/24/19 at 06:00 Lisinopril (Zestril) 5 mg BID PO Last administered on 01/26/19at 09:49; Admin Dose 5 MG; Start 01/24/19 at 21:00 Metoprolol Tartrate (Lopressor) 12.5 mg BID PO Last administered on 01/26/19at 09:42; Admin Dose 12.5 MG; Start 01/24/19 at 21:00 NORMA PRINCE NP Jan 26, 2019 14:00
--- NOTE | 2019-01-26 14:27 | PN ---
Date/Time of Note Date/Time of Note DATE: 01/26/19 TIME: 14:23 Assessment/Plan VTE Prophylaxis Risk score (from Ns)>0 risk: 3 [place] [facility] [place] contraindicated: patient refusal Pharmacological prophylaxis: other Lines/Catheters IV [facility] Type [facility]from [facility] [place] Urinary Cath still in place: No Assessment/Plan Assessment/Plan 1. Non-ST elevation [place], status post left heart cath and now multivessel intervention with open heart surgery done January 16, 2019 - Cardiology on board and appreciate recommendations. continue current treatment - pain control - ECHO from November 2018 shows an ejection fraction of roughly 35-40% with diastolic dysfunction. 2. Sepsis secondary to UTI- resolved - UA results noted. repeat urine cx negative - ID on board and will continue Levaquin for 2 more days 3. Bacteremia secondary to UTI- resolved - continue current antibiotics. repeat cx negative 4. Urinary retention - Acute on chronic - okay for straight cath if >400 residual and patient feels bladder pressure. has hx prostate CA 5. H/o Prostate cancer - follows with [facility] - Patient received Lupron Depo injection before admission 6. HTN - continue meds per cardiology 7. CM - continue meds per cardiology 8. Disposition - CM on board for SNF placement but given insurance may have difficulty placing patient. Hopefully he progresses well with PT over the next couple days and will be safe for d/c home if unable to find accepting SNF. Result Diagram: 01/26/19 1011 01/24/19 0751 Results 24hrs Laboratory Tests Test 01/25/19 16:58 01/25/19 20:22 01/26/19 08:39 01/26/19 10:11 Bedside Glucose 93 178 118 White Blood Count 11.0 H Red Blood Count 3.21 L Hemoglobin 9.3 L Hematocrit 29.2 L Mean Corpuscular 91.0 Volume Mean Corpuscular 29.0 Hemoglobin Mean Corpuscular 31.8 L Hemoglobin Concent Red Cell 14.7 H Distribution Width Platelet Count 374 Mean Platelet Volume 10.4 Immature 1.700 H Granulocytes % Neutrophils % 72.2 Lymphocytes % 13.7 L Monocytes % 7.5 Eosinophils % 4.4 Basophils % 0.5 Nucleated Red Blood 0.0 Cells % Immature 0.190 H Granulocytes # Neutrophils # 7.9 H Lymphocytes # 1.5 Monocytes # 0.8 Eosinophils # 0.5 Basophils # 0.1 Nucleated Red Blood 0.0 Cells # Test 01/26/19 12:05 Bedside Glucose 102 Subjective 24 Hr Interval Summary Free Text/Dictation Patient denies any issues and no acute overnight events. Exam/Review of Systems Exam Vitals Vital Signs Date Temp Pulse Resp B/P (MAP) Pulse Ox O2 O2 Flow FiO2 Time Delivery Rate 01/26/19 85 13:43 01/26/19 99.0 18 98/55 (69) 98 Nasal 2.0 11:48 Cannula Intake and Output 01/25/19 01/25/19 01/26/19 1515:00 23:00 07:00 IntakeIntake Total 600 ml 400 ml OutputOutput Total 450 ml BalanceBalance 600 ml -50 ml Exam General: Patient is laying in bed and answering questions appropriately Respiratory: Diminished breath sounds. no wheezing Cardiovascular: regular rate and rhythm, no obvious murmurs Gastrointestinal: soft, non-tender to palpation, bowel sounds heard. Neurological: Able to move all extremities Skin: No new skin lesions. surgical incision clean and dry Results Results 24hrs Laboratory Tests Test 01/25/19 16:58 01/25/19 20:22 01/26/19 08:39 01/26/19 10:11 Bedside Glucose 93 178 118 White Blood Count 11.0 H Red Blood Count 3.21 L Hemoglobin 9.3 L Hematocrit 29.2 L Mean Corpuscular 91.0 Volume Mean Corpuscular 29.0 Hemoglobin Mean Corpuscular 31.8 L Hemoglobin Concent Red Cell 14.7 H Distribution Width Platelet Count 374 Mean Platelet Volume 10.4 Immature 1.700 H Granulocytes % Neutrophils % 72.2 Lymphocytes % 13.7 L Monocytes % 7.5 Eosinophils % 4.4 Basophils % 0.5 Nucleated Red Blood 0.0 Cells % Immature 0.190 H Granulocytes # Neutrophils # 7.9 H Lymphocytes # 1.5 Monocytes # 0.8 Eosinophils # 0.5 Basophils # 0.1 Nucleated Red Blood 0.0 Cells # Test 01/26/19 12:05 Bedside Glucose 102 Medications Medication Current Medications IV Flush (NS 3 ml) 3 ml PER PROTOCOL IV ; Start 01/15/19 at 01:30 Nitroglycerin (Nitroglycerin (Sl Tab) 0.4 Mg) 1 tab Q5M PRN SL .CHEST PAIN Last administered on 01/18/19at 23:22; Admin Dose 1 TAB; Start 01/15/19 at 01:30 Docusate Sodium (Colace) 100 mg Q12H PRN PO .CONSTIPATION; Start 01/15/19 at 01:30 Bisacodyl (Dulcolax) 5 mg DAILY PRN PO .CONSTIPATION Last administered on 01/24/19 20:18; Admin Dose 5 MG; Start 01/15/19 at 01:30 Bicalutamide (Casodex) 50 mg DAILY PO Last administered on 01/26/19 09:47; Admin Dose 50 MG; Start 01/16/19 at 09:00 Tamsulosin HCl (Flomax) 0.4 mg BID PO Last administered on 01/26/19 09:45; Admin Dose 0.4 MG; Start 01/15/19 at 21:00 Terazosin HCl (Hytrin) 5 mg HS PO Last administered on 01/15/19at 20:43; Admin Dose 5 MG; Start 01/15/19 at 21:00; Status Hold Amlodipine Besylate (Norvasc) 10 mg DAILY PO ; Start 01/16/19 at 09:00; Status Hold Atorvastatin Calcium (Lipitor) 40 mg HS PO Last administered on 01/25/19 20:16; Admin Dose 40 MG; Start 01/15/19 at 21:00 Nitroglycerin (Nitroglycerin 2% Oint) 0.5 inch Q8 TD Last administered on 01/16/19 01:23; Admin Dose 0.5 INCH; Start 01/16/19 at 01:00; Status Hold Oxycodone/ Acetaminophen (Percocet (5/ 325)) 1 tab Q4H PRN PO PAIN; Start 01/16/19 at 11:00 Al Hydrox/Mg Hydrox/Simethicone (Mag-Al Plus) 30 ml Q4H PRN PO GASTROINTESTINAL UPSET; Start 01/16/19 at 11:00 Oxycodone/ Acetaminophen (Percocet (5/ 325)) 1 tab Q3H PRN PO PAIN LEVEL 1-5; Start 01/16/19 at 17:30 Oxycodone/ Acetaminophen (Percocet (5/ 325)) 2 tab Q3H PRN PO PAIN LEVEL 6-10 Last administered on 01/21/19 00:49; Admin Dose 2 TAB; Start 01/16/19 at 17:30 Ondansetron HCl (Zofran Inj) 4 mg Q6H PRN IV NAUSEA AND/OR VOMITING; Start 01/16/19 at 17:30 Famotidine (Pepcid) 20 mg BID PO Last administered on 01/26/19at 09:45; Admin Dose 20 MG; Start 01/16/19 at 21:00 Aspirin (Aspirin) 325 mg DAILY PO Last administered on 01/26/19at 09:45; Admin Dose 325 MG; Start 01/17/19 at 09:00 Acetaminophen (Tylenol Tab) 650 mg Q3H PRN PO ELEVATED TEMPERATURE Last administered on 01/24/19at 20:19; Admin Dose 650 MG; Start 01/16/19 at 17:30 Potassium Chloride 50 ml @ 50 mls/hr SEE DIRECTION PRN IVPB K+ LEVEL Last administered on 01/17/19at 09:51; Admin Dose 50 MLS/HR; Start 01/16/19 at 17:30 Magnesium Sulfate/ Dextrose 100 ml @ 100 mls/hr PRN PRN IVPB PENDING LAB VALUE; Start 01/16/19 at 17:30 Albumin Human 250 ml @ 250 mls/hr PRN PRN IV CVP <10 Last administered on 01/17/19at 22:36; Admin Dose 250 MLS/HR; Start 01/17/19 at 01:00 Morphine Sulfate (morphine) 2 mg Q4H PRN IV SEVERE PAIN LEVEL 7-10 Last administered on 01/20/19at 17:59; Admin Dose 2 MG; Start 01/18/19 at 16:00 Miscellaneous Information 1 ea NOTE XX ; Start 01/18/19 at 17:00 Glucose (Glutose) 15 gm Q15M PRN PO DECREASED GLUCOSE; Start 01/18/19 at 17:00 Glucose (Glutose) 22.5 gm Q15M PRN PO DECREASED GLUCOSE; Start 01/18/19 at 17:00 Dextrose (D50w Syringe) 25 ml Q15M PRN IV DECREASED GLUCOSE; Start 01/18/19 at 17:00 Dextrose (D50w Syringe) 50 ml Q15M PRN IV DECREASED GLUCOSE; Start 01/18/19 at 17:00 Glucagon (Glucagen) 1 mg Q15M PRN IM DECREASED GLUCOSE; Start 01/18/19 at 17:00 Glucose (Glutose) 15 gm Q15M PRN BUCCAL DECREASED GLUCOSE; Start 01/18/19 at 17 :00 Levalbuterol (Xopenex Neb) 0.63 mg Q4H RESP THERAPY PRN HHN SHORTNESS OF BREATH Last administered on 01/19/19 03:03; Admin Dose 0.63 MG; Start 01/19/19 at 02:30 Ipratropium [place] (Atrovent 0.02% (Neb)) 0.5 mg Q4H RESP THERAPY PRN HHN SHORTNESS OF BREATH Last administered on 01/19/19 03:03; Admin Dose 0.5 MG; Start 01/19/19 at 02:30 Enoxaparin Sodium (Lovenox) 40 mg DAILY SC Last administered on 01/26/19 09:47; Admin Dose 40 MG; Start 01/19/19 at 09:00 Clopidogrel Bisulfate (plaVIX) 75 mg DAILY PO Last administered on 01/26/19 09:45; Admin Dose 75 MG; Start 01/19/19 at 09:00 Diagnostic Test (Pha) (Accu-Chek) 1 ea 02 XX Last administered on 01/20/19 02:39; Admin Dose 1 EA; Start 01/20/19 at 02:00 Insulin Aspart (Novolog Insulin Pen) NOVOLOG *MILD* ALGORITHM WITH MEALS BEDTIM E SC Last administered on 01/24/19 11:56; Admin Dose 1 UNIT; Start 01/19/19 at 21:00 Levofloxacin (Levaquin) 500 mg DAILY@06 PO Last administered on 01/26/19 06:10; Admin Dose 500 MG; Start 01/24/19 at 06:00 Lisinopril (Zestril) 5 mg BID PO Last administered on 01/26/19 09:49; Admin Dose 5 MG; Start 01/24/19 at 21:00 Metoprolol Tartrate (Lopressor) 12.5 mg BID PO Last administered on 01/26/19 09:42; Admin Dose 12.5 MG; Start 01/24/19 at 21:00 MATY DE LA FUENTE MD Jan 26, 2019 14:27
[2019-01-26] MEDS: ATORVASTATIN 40 MG TAB PO SCH (21:20)
[2019-01-27] VITALS (9 sets, daily range): BP systolic 103–140; BP diastolic 55–66; PULSE 71–89; RESP 16–18
[2019-01-27] MEDS: ACCU-CHEK XX SCH (02:00)
[2019-01-27] MEDS: LEVOFLOXACIN 500 MG TAB PO SCH (06:27)
[2019-01-27] MEDS: INSULIN ASPART [NOVOLOG] 3 ML PEN SC SCH ×2 (07:55→11:42)
[2019-01-27] MEDS: BICALUTAMIDE 50 MG TAB PO SCH (09:01)
[2019-01-27] MEDS: CLOPIDOGREL 75 MG TAB PO SCH (09:02)
[2019-01-27] MEDS: ENOXAPARIN 40 MG/0.4 ML SYG SC SCH (09:02)
[2019-01-27] MEDS: FAMOTIDINE 20 MG TAB PO SCH (09:02)
[2019-01-27] MEDS: TAMSULOSIN (SR) 0.4 MG CAP PO SCH (09:04)
[2019-01-27] MEDS: ASPIRIN 325 MG TAB PO SCH (09:04)
[2019-01-27] MEDS: METOPROLOL 25 MG TAB PO SCH (09:04)
--- NOTE | 2019-01-27 13:48 | CONS ---
Consult Date/Type/Reason Admit Date/Time Jan 15, 2019 at 01:24 Initial Consult Date 01/17/19 Type of Consult Pulmonary Requesting Provider: NEFTALI LYNN Date/Time of Note DATE: 01/27/19 TIME: 13:48 Subjective Patient stable. No respiratory distress ambulating without nasal cannula. Objective Vital Signs Date Temp Pulse Resp B/P (MAP) Pulse Ox O2 O2 Flow FiO2 Time Delivery Rate 01/27/19 80 12:37 01/27/19 98.0 18 104/55 98 Room Air 12:01 (71) 01/27/19 2.0 08:45 Intake and Output 01/26/19 01/26/19 01/27/19 1515:00 23:00 07:00 IntakeIntake Total 300 ml OutputOutput Total 500 ml BalanceBalance -200 ml Exam GENERAL: Well-nourished well-developed gentleman comfortable at rest VITAL SIGNS: per chart NECK: Supple. No JVD or lymphadenopathy. CARDIAC EXAM: S1, S2. No added sounds or murmurs. CHEST: Diminished air entry at bases ABDOMEN: Soft, nontender. No guarding or rebound. EXTREMITIES: No cyanosis, clubbing or edema. NEUROLOGIC: Generalized weakness. No focal deficits. Vent Setting Ventilator Support Mode: CPAP, PS Fraction of Inspired Oxygen pe: 27 Positive End Expiratory Pressu: 5.0 Results/Medications Result Diagram: 01/27/19 0657 01/24/19 0751 Results 24 hrs Laboratory Tests Test 01/26/19 17:06 01/26/19 21:18 01/27/19 06:57 01/27/19 07:57 Bedside Glucose 149 135 116 White Blood Count 10.6 Red Blood Count 3.03 L Hemoglobin 8.9 L Hematocrit 27.7 L Mean Corpuscular 91.4 Volume Mean Corpuscular 29.4 Hemoglobin Mean Corpuscular 32.1 Hemoglobin Concent Red Cell 14.6 H Distribution Width Platelet Count 330 Mean Platelet Volume 10.5 H Immature 1.300 H Granulocytes % Neutrophils % 65.1 Lymphocytes % 19.2 Monocytes % 9.3 Eosinophils % 4.6 Basophils % 0.5 Nucleated Red Blood 0.0 Cells % Immature 0.140 H Granulocytes # Neutrophils # 6.9 Lymphocytes # 2.0 Monocytes # 1.0 H Eosinophils # 0.5 Basophils # 0.1 Nucleated Red Blood 0.0 Cells # Test 4/19/19 11:41 Bedside Glucose 102 Medications Current Medications IV Flush (NS 3 ml) 3 ml PER PROTOCOL IV ; Start 01/15/19 at 01:30 Nitroglycerin (Nitroglycerin (Sl Tab) 0.4 Mg) 1 tab Q5M PRN SL .CHEST PAIN Last administered on 01/18/19 23:22; Admin Dose 1 TAB; Start 01/15/19 at 01:30 Docusate Sodium (Colace) 100 mg Q12H PRN PO .CONSTIPATION; Start 01/15/19 at 01:30 Bisacodyl (Dulcolax) 5 mg DAILY PRN PO .CONSTIPATION Last administered on 01/24/19 20:18; Admin Dose 5 MG; Start 01/15/19 at 01:30 Bicalutamide (Casodex) 50 mg DAILY PO Last administered on 01/27/19 09:01; Admin Dose 50 MG; Start 01/16/19 at 09:00 Tamsulosin HCl (Flomax) 0.4 mg BID PO Last administered on 01/27/19at 09:04; Admin Dose 0.4 MG; Start 01/15/19 at 21:00 Terazosin HCl (Hytrin) 5 mg HS PO Last administered on 01/15/19at 20:43; Admin Dose 5 MG; Start 01/15/19 at 21:00; Status Hold Amlodipine Besylate (Norvasc) 10 mg DAILY PO ; Start 01/16/19 at 09:00; Status Hold Atorvastatin Calcium (Lipitor) 40 mg HS PO Last administered on 01/26/19at 21:20; Admin Dose 40 MG; Start 01/15/19 at 21:00 Nitroglycerin (Nitroglycerin 2% Oint) 0.5 inch Q8 TD Last administered on 01/16/19at 01:23; Admin Dose 0.5 INCH; Start 01/16/19 at 01:00; Status Hold Oxycodone/ Acetaminophen (Percocet (5/ 325)) 1 tab Q4H PRN PO PAIN; Start 01/16/19 at 11:00 Al Hydrox/Mg Hydrox/Simethicone (Mag-Al Plus) 30 ml Q4H PRN PO GASTROINTESTINAL UPSET; Start 01/16/19 at 11:00 Oxycodone/ Acetaminophen (Percocet (5/ 325)) 1 tab Q3H PRN PO PAIN LEVEL 1-5; Start 01/16/19 at 17:30 Oxycodone/ Acetaminophen (Percocet (5/ 325)) 2 tab Q3H PRN PO PAIN LEVEL 6-10 Last administered on 01/21/19at 00:49; Admin Dose 2 TAB; Start 01/16/19 at 17:30 Ondansetron HCl (Zofran Inj) 4 mg Q6H PRN IV NAUSEA AND/OR VOMITING; Start 01/16/19 at 17:30 Famotidine (Pepcid) 20 mg BID PO Last administered on 01/27/19at 09:02; Admin Dose 20 MG; Start 01/16/19 at 21:00 Aspirin (Aspirin) 325 mg DAILY PO Last administered on 01/27/19at 09:04; Admin Dose 325 MG; Start 01/17/19 at 09:00 Acetaminophen (Tylenol Tab) 650 mg Q3H PRN PO ELEVATED TEMPERATURE Last administered on 01/24/19at 20:19; Admin Dose 650 MG; Start 01/16/19 at 17:30 Potassium Chloride 50 ml @ 50 mls/hr SEE DIRECTION PRN IVPB K+ LEVEL Last administered on 01/17/19at 09:51; Admin Dose 50 MLS/HR; Start 01/16/19 at 17:30 Magnesium Sulfate/ Dextrose 100 ml @ 100 mls/hr PRN PRN IVPB PENDING LAB VALUE; Start 01/16/19 at 17:30 Albumin Human 250 ml @ 250 mls/hr PRN PRN IV CVP <10 Last administered on 01/17/19at 22:36; Admin Dose 250 MLS/HR; Start 01/17/19 at 01:00 Morphine Sulfate (morphine) 2 mg Q4H PRN IV SEVERE PAIN LEVEL 7-10 Last administered on 01/20/19at 17:59; Admin Dose 2 MG; Start 01/18/19 at 16:00 Miscellaneous Information 1 ea NOTE XX ; Start 01/18/19 at 17:00 Glucose (Glutose) 15 gm Q15M PRN PO DECREASED GLUCOSE; Start 01/18/19 at 17:00 Glucose (Glutose) 22.5 gm Q15M PRN PO DECREASED GLUCOSE; Start 01/18/19 at 17:00 Dextrose (D50w Syringe) 25 ml Q15M PRN IV DECREASED GLUCOSE; Start 01/18/19 at 17:00 Dextrose (D50w Syringe) 50 ml Q15M PRN IV DECREASED GLUCOSE; Start 01/18/19 at 17:00 Glucagon (Glucagen) 1 mg Q15M PRN IM DECREASED GLUCOSE; Start 01/18/19 at 17:00 Glucose (Glutose) 15 gm Q15M PRN BUCCAL DECREASED GLUCOSE; Start 01/18/19 at 17:00 Levalbuterol (Xopenex Neb) 0.63 mg Q4H RESP THERAPY PRN HHN SHORTNESS OF BREATH Last administered on 01/19/19 03:03; Admin Dose 0.63 MG; Start 01/19/19 at 02:30 Ipratropium [place] (Atrovent 0.02% (Neb)) 0.5 mg Q4H RESP THERAPY PRN HHN SHORTNESS OF BREATH Last administered on 01/19/19 03:03; Admin Dose 0.5 MG; Start 01/19/19 at 02:30 Enoxaparin Sodium (Lovenox) 40 mg DAILY SC Last administered on 01/27/19 09:02; Admin Dose 40 MG; Start 01/19/19 at 09:00 Clopidogrel Bisulfate (plaVIX) 75 mg DAILY PO Last administered on 01/27/19 09 :02; Admin Dose 75 MG; Start 01/19/19 at 09:00 Diagnostic Test (Pha) (Accu-Chek) 1 ea 02 XX Last administered on 01/20/19 02:39; Admin Dose 1 EA; Start 01/20/19 at 02:00 Insulin Aspart (Novolog Insulin Pen) NOVOLOG *MILD* ALGORITHM WITH MEALS BEDTIME SC Last administered on 01/26/19 17:10; Admin Dose 1 UNIT; Start 01/19/19 at 21:00 Levofloxacin (Levaquin) 500 mg DAILY@06 PO Last administered on 01/27/19 06:27; Admin Dose 500 MG; Start 01/24/19 at 06:00 Lisinopril (Zestril) 5 mg BID PO Last administered on 01/26/19 21:21; Admin Dose 5 MG; Start 01/24/19 at 21:00 Metoprolol Tartrate (Lopressor) 12.5 mg BID PO Last administered on 4/19/19at 09:04; Admin Dose 12.5 MG; Start 01/24/19 at 21:00 Assessment/Plan Hospital Course (Demo Recall) assessment 1. Coronary artery disease status post acute coronary artery bypass graft surgery 2. Status post shock likely combination of cardiogenic and septic. 3. Chest CT demonstrates moderate right pleural effusion. Repeat chest x-ray shows small to moderate right pleural effusion. 4. Improved acute hypoxemic respiratory failure 5. History of prostate cancer Plan 1. Incentive spirometry and chest PT 2. Encourage out of bed 3. Aspiration precautions DC planning. Okay for DC from pulmonary standpoint LA GEE MD, [facility] Jan 27, 2019 13:48
[2019-01-27] MEDS: LISINOPRIL 5 MG TAB PO SCH (13:52)
--- NOTE | 2019-01-27 13:59 | PN ---
Date/Time of Note Date/Time of Note DATE: 01/27/19 TIME: 13:58 Assessment/Plan VTE Prophylaxis Risk score (from Ns)>0 risk: 6 SCD applied (from Ns): Yes Pharmacological prophylaxis: other Lines/Catheters IV Catheter Type (from Nrs): Saline Lock Urinary Cath still in place: No Assessment/Plan Assessment/Plan 1. Non-ST elevation NE, status post left heart cath and now multivessel i ntervention with open heart surgery done January 16, 2019 - Cardiology on board and appreciate recommendations. continue current treatment - ECHO from November 2018 shows an ejection fraction of roughly 35-40% with diastolic dysfunction. 2. Sepsis secondary to UTI- resolved - UA results noted. repeat urine cx negative - ID on board and will continue Levaquin for 1 more days 3. Bacteremia secondary to UTI- resolved - continue current antibiotics. repeat cx negative 4. Urinary retention - Acute on chronic - patient has an appointment with his urologist on 02/12. Requesting a ricci placed prior to discharge 5. H/o Prostate cancer - follows with [facility] - Patient received Lupron Depo injection before admission 6. HTN - continue meds per cardiology 7. CM - continue meds per cardiology 8. Disposition - Medically cleared for discharge home Result Diagram: 01/27/19 0657 01/24/19 0751 Results 24hrs Laboratory Tests Test 01/26/19 17:06 01/26/19 21:18 01/27/19 06:57 01/27/19 07:57 Bedside Glucose 149 135 116 White Blood Count 10.6 Red Blood Count 3.03 L Hemoglobin 8.9 L Hematocrit 27.7 L Mean Corpuscular 91.4 Volume Mean Corpuscular 29.4 Hemoglobin Mean Corpuscular 32.1 Hemoglobin Concent Red Cell 14.6 H Distribution Width Platelet Count 330 Mean Platelet Volume 10.5 H Immature 1.300 H Granulocytes % Neutrophils % 65.1 Lymphocytes % 19.2 Monocytes % 9.3 Eosinophils % 4.6 Basophils % 0.5 Nucleated Red Blood 0.0 Cells % Immature 0.140 H Granulocytes # Neutrophils # 6.9 Lymphocytes # 2.0 Monocytes # 1.0 H Eosinophils # 0.5 Basophils # 0.1 Nucleated Red Blood 0.0 Cells # Test 01/27/19 11:41 Bedside Glucose 102 Subjective 24 Hr Interval Summary Free Text/Dictation Patient is complaining of back pain when straining to urinate. Denies any respiratory issues and off supplemental O2. Exam/Review of Systems Exam Vitals Vital Signs Date Temp Pulse Resp B/P (MAP) Pulse Ox O2 O2 Flow FiO2 Time Delivery Rate 01/27/19 80 12:37 01/27/19 98.0 18 104/55 98 Room Air 12:01 (71) 01/27/19 2.0 08:45 Intake and Output 01/26/19 01/26/19 01/27/19 1515:00 23:00 07:00 IntakeIntake Total 300 ml OutputOutput Total 500 ml BalanceBalance -200 ml Exam General: Patient is laying in bed and answering questions appropriately Respiratory: Diminished breath sounds. no wheezing Cardiovascular: regular rate and rhythm, no obvious murmurs Gastrointestinal: soft, non-tender to palpation, bowel sounds heard. Neurological: Able to move all extremities Skin: No new skin lesions. surgical incision clean and dry Results Results 24hrs Laboratory Tests Test 01/26/19 17:06 01/26/19 21:18 01/27/19 06:57 01/27/19 07:57 Bedside Glucose 149 135 116 White Blood Count 10.6 Red Blood Count 3.03 L Hemoglobin 8.9 L Hematocrit 27.7 L Mean Corpuscular 91.4 Volume Mean Corpuscular 29.4 Hemoglobin Mean Corpuscular 32.1 Hemoglobin Concent Red Cell 14.6 H Distribution Width Platelet Count 330 Mean Platelet Volume 10.5 H Immature 1.300 H Granulocytes % Neutrophils % 65.1 Lymphocytes % 19.2 Monocytes % 9.3 Eosinophils % 4.6 Basophils % 0.5 Nucleated Red Blood 0.0 Cells % Immature 0.140 H Granulocytes # Neutrophils # 6.9 Lymphocytes # 2.0 Monocytes # 1.0 H Eosinophils # 0.5 Basophils # 0.1 Nucleated Red Blood 0.0 Cells # Test 01/27/19 11:41 Bedside Glucose 102 Medications Medication Current Medications IV Flush (NS 3 ml) 3 ml PER PROTOCOL IV ; Start 01/15/19 at 01:30 Nitroglycerin (Nitroglycerin (Sl Tab) 0.4 Mg) 1 tab Q5M PRN SL .CHEST PAIN Last administered on 01/18/19at 23:22; Admin Dose 1 TAB; Start 01/15/19 at 01:30 Docusate Sodium (Colace) 100 mg Q12H PRN PO .CONSTIPATION; Start 01/15/19 at 01:30 Bisacodyl (Dulcolax) 5 mg DAILY PRN PO .CONSTIPATION Last administered on 01/24/19 20:18; Admin Dose 5 MG; Start 01/15/19 at 01:30 Bicalutamide (Casodex) 50 mg DAILY PO Last administered on 01/27/19 09:01; Admin Dose 50 MG; Start 01/16/19 at 09:00 Tamsulosin HCl (Flomax) 0.4 mg BID PO Last administered on 01/27/19 09:04; Admin Dose 0.4 MG; Start 01/15/19 at 21:00 Terazosin HCl (Hytrin) 5 mg HS PO Last administered on 01/15/19at 20:43; Admin Dose 5 MG; Start 01/15/19 at 21:00; Status Hold Amlodipine Besylate (Norvasc) 10 mg DAILY PO ; Start 01/16/19 at 09:00; Status Hold Atorvastatin Calcium (Lipitor) 40 mg HS PO Last administered on 01/26/19at 21:20 ; Admin Dose 40 MG; Start 01/15/19 at 21:00 Nitroglycerin (Nitroglycerin 2% Oint) 0.5 inch Q8 TD Last administered on 01/16/19 01:23; Admin Dose 0.5 INCH; Start 01/16/19 at 01:00; Status Hold Oxycodone/ Acetaminophen (Percocet (5/ 325)) 1 tab Q4H PRN PO PAIN; Start 01/16/19 at 11:00 Al Hydrox/Mg Hydrox/Simethicone (Mag-Al Plus) 30 ml Q4H PRN PO GASTROINTESTINAL UPSET; Start 01/16/19 at 11:00 Oxycodone/ Acetaminophen (Percocet (5/ 325)) 1 tab Q3H PRN PO PAIN LEVEL 1-5; Start 01/16/19 at 17:30 Oxycodone/ Acetaminophen (Percocet (5/ 325)) 2 tab Q3H PRN PO PAIN LEVEL 6-10 Last administered on 01/21/19 00:49; Admin Dose 2 TAB; Start 01/16/19 at 17:30 Ondansetron HCl (Zofran Inj) 4 mg Q6H PRN IV NAUSEA AND/OR VOMITING; Start 01/16/19 at 17:30 Famotidine (Pepcid) 20 mg BID PO Last administered on 01/27/19 09:02; Admin Dose 20 MG; Start 01/16/19 at 21:00 Aspirin (Aspirin) 325 mg DAILY PO Last administered on 01/27/19 09:04; Admin Dose 325 MG; Start 01/17/19 at 09:00 Acetaminophen (Tylenol Tab) 650 mg Q3H PRN PO ELEVATED TEMPERATURE Last administered on 01/24/19 20:19; Admin Dose 650 MG; Start 01/16/19 at 17:30 Potassium Chloride 50 ml @ 50 mls/hr SEE DIRECTION PRN IVPB K+ LEVEL Last ad ministered on 01/17/19 09:51; Admin Dose 50 MLS/HR; Start 01/16/19 at 17:30 Magnesium Sulfate/ Dextrose 100 ml @ 100 mls/hr PRN PRN IVPB PENDING LAB VALUE; Start 01/16/19 at 17:30 Albumin Human 250 ml @ 250 mls/hr PRN PRN IV CVP <10 Last administered on 01/17/19at 22:36; Admin Dose 250 MLS/HR; Start 01/17/19 at 01:00 Morphine Sulfate (morphine) 2 mg Q4H PRN IV SEVERE PAIN LEVEL 7-10 Last administered on 01/20/19at 17:59; Admin Dose 2 MG; Start 01/18/19 at 16:00 Miscellaneous Information 1 ea NOTE XX ; Start 01/18/19 at 17:00 Glucose (Glutose) 15 gm Q15M PRN PO DECREASED GLUCOSE; Start 01/18/19 at 17:00 Glucose (Glutose) 22.5 gm Q15M PRN PO DECREASED GLUCOSE; Start 01/18/19 at 17:00 Dextrose (D50w Syringe) 25 ml Q15M PRN IV DECREASED GLUCOSE; Start 01/18/19 at 17:00 Dextrose (D50w Syringe) 50 ml Q15M PRN IV DECREASED GLUCOSE; Start 01/18/19 at 17:00 Glucagon (Glucagen) 1 mg Q15M PRN IM DECREASED GLUCOSE; Start 01/18/19 at 17:00 Glucose (Glutose) 15 gm Q15M PRN BUCCAL DECREASED GLUCOSE; Start 01/18/19 at 17:00 Levalbuterol (Xopenex Neb) 0.63 mg Q4H RESP THERAPY PRN HHN SHORTNESS OF BREATH Last administered on 01/19/19 03:03; Admin Dose 0.63 MG; Start 01/19/19 at 02:30 Ipratropium [place] (Atrovent 0.02% (Neb)) 0.5 mg Q4H RESP THERAPY PRN HHN SHORTNESS OF BREATH Last administered on 01/19/19 03:03; Admin Dose 0.5 MG; Start 01/19/19 at 02:30 Enoxaparin Sodium (Lovenox) 40 mg DAILY SC Last administered on 01/27/19 09:02; Admin Dose 40 MG; Start 01/19/19 at 09:00 Clopidogrel Bisulfate (plaVIX) 75 mg DAILY PO Last administered on 01/27/19 09:02; Admin Dose 75 MG; Start 01/19/19 at 09:00 Diagnostic Test (Pha) (Accu-Chek) 1 ea 02 XX Last administered on 01/20/19 02: 39; Admin Dose 1 EA; Start 01/20/19 at 02:00 Insulin Aspart (Novolog Insulin Pen) NOVOLOG *MILD* ALGORITHM WITH MEALS BEDTIME SC Last administered on 01/26/19 17:10; Admin Dose 1 UNIT; Start 01/19/19 at 21:00 Levofloxacin (Levaquin) 500 mg DAILY@06 PO Last administered on 01/27/19 06:27; Admin Dose 500 MG; Start 01/24/19 at 06:00 Lisinopril (Zestril) 5 mg BID PO Last administered on 01/27/19 13:52; Admin Dose 5 MG; Start 01/24/19 at 21:00 Metoprolol Tartrate (Lopressor) 12.5 mg BID PO Last administered on 01/27/19 09:04; Admin Dose 12.5 MG; Start 01/24/19 at 21:00 MATY DE LA FUENTE MD Jan 27, 2019 13:59
--- NOTE | 2019-01-27 14:05 | CONS ---
Assessment/Plan Assessment/Plan Hospital Course (Demo Recall) No acute changes, alert, feels good Antimicrobials: Levaquin Microbiology: Blood culture on admission grew Citrobacter freundii, repeat blood cultures negative sputum culture pending urine culture negative Physical examination: Well-developed well-nourished elderly man who is alert, in no distress. Head atraumatic normocephalic sclera nonicteric. Neck is supple chest rise symmetrical breath sounds CTA. Heart: S1-S2. Abdomen soft, BT active. Extremities without cyanosis. Assessment: 1. S/p septic shock, possibly cardiogenic 2. Gram-negative david bacteremia likely secondary to UTI 3. Pulmonary edema with superimposed pneumonia, possible aspiration 3. Acute DC status post emergency CABG 01/16/19 4. History of prostate cancer 5. History of hypertension 6. Acute anemia Plan: Continues to improve, last dose antibiotics on 01/29/19 Consultation Date/Type/Reason Admit Date/Time Jan 15, 2019 at 01:24 Initial Consult Date 01/17/19 Type of Consult id Requesting Provider: NEFTALI LYNN Date/Time of Note DATE: 01/27/19 TIME: 14:05 Exam/Review of Systems Exam Vitals Vital Signs Date Temp Pulse Resp B/P (MAP) Pulse Ox O2 O2 Flow FiO2 Time Delivery Rate 01/27/19 80 12:37 01/27/19 98.0 18 104/55 98 Room Air 12:01 (71) 01/27/19 2.0 08:45 Intake and Output 01/26/19 01/26/19 01/27/19 1515:00 23:00 07:00 IntakeIntake Total 300 ml OutputOutput Total 500 ml BalanceBalance -200 ml Results Result Diagram: 01/27/19 0657 01/24/19 0751 Results 24hrs Laboratory Tests Test 01/26/19 17:06 01/26/19 21:18 01/27/19 06:57 01/27/19 07:57 Bedside Glucose 149 135 116 White Blood Count 10.6 Red Blood Count 3.03 L Hemoglobin 8.9 L Hematocrit 27.7 L Mean Corpuscular 91.4 Volume Mean Corpuscular 29.4 Hemoglobin Mean Corpuscular 32.1 Hemoglobin Concent Red Cell 14.6 H Distribution Width Platelet Count 330 Mean Platelet Volume 10.5 H Immature 1.300 H Granulocytes % Neutrophils % 65.1 Lymphocytes % 19.2 Monocytes % 9.3 Eosinophils % 4.6 Basophils % 0.5 Nucleated Red Blood 0.0 Cells % Immature 0.140 H Granulocytes # Neutrophils # 6.9 Lymphocytes # 2.0 Monocytes # 1.0 H Eosinophils # 0.5 Basophils # 0.1 Nucleated Red Blood 0.0 Cells # Test 01/27/19 11:41 Bedside Glucose 102 Medications Medication Current Medications IV Flush (NS 3 ml) 3 ml PER PROTOCOL IV ; Start 01/15/19 at 01:30 Nitroglycerin (Nitroglycerin (Sl Tab) 0.4 Mg) 1 tab Q5M PRN SL .CHEST PAIN Last administered on 01/18/19 23:22; Admin Dose 1 TAB; Start 01/15/19 at 01:30 Docusate Sodium (Colace) 100 mg Q12H PRN PO .CONSTIPATION; Start 01/15/19 at 01:30 Bisacodyl (Dulcolax) 5 mg DAILY PRN PO .CONSTIPATION Last administered on 01/24/19at 20:18; Admin Dose 5 MG; Start 01/15/19 at 01:30 Bicalutamide (Casodex) 50 mg DAILY PO Last administered on 01/27/19 09:01; Admin Dose 50 MG; Start 01/16/19 at 09:00 Tamsulosin HCl (Flomax) 0.4 mg BID PO Last administered on 01/27/19at 09:04; Admin Dose 0.4 MG; Start 01/15/19 at 21:00 Terazosin HCl (Hytrin) 5 mg HS PO Last administered on 01/15/19at 20:43; Admin Dose 5 MG; Start 01/15/19 at 21:00; Status Hold Amlodipine Besylate (Norvasc) 10 mg DAILY PO ; Start 01/16/19 at 09:00; Status Hold Atorvastatin Calcium (Lipitor) 40 mg HS PO Last administered on 01/26/19at 21:20; Admin Dose 40 MG; Start 01/15/19 at 21:00 Nitroglycerin (Nitroglycerin 2% Oint) 0.5 inch Q8 TD Last administered on 01/16/19 01:23; Admin Dose 0.5 INCH; Start 01/16/19 at 01:00; Status Hold Oxycodone/ Acetaminophen (Percocet (5/ 325)) 1 tab Q4H PRN PO PAIN; Start 01/16/19 at 11:00 Al Hydrox/Mg Hydrox/Simethicone (Mag-Al Plus) 30 ml Q4H PRN PO GASTROINTESTINAL UPSET; Start 01/16/19 at 11:00 Oxycodone/ Acetaminophen (Percocet (5/ 325)) 1 tab Q3H PRN PO PAIN LEVEL 1-5; Start 01/16/19 at 17:30 Oxycodone/ Acetaminophen (Percocet (5/ 325)) 2 tab Q3H PRN PO PAIN LEVEL 6-10 Last administered on 01/21/19 00:49; Admin Dose 2 TAB; Start 01/16/19 at 17:30 Ondansetron HCl (Zofran Inj) 4 mg Q6H PRN IV NAUSEA AND/OR VOMITING; Start 01/16/19 at 17:30 Famotidine (Pepcid) 20 mg BID PO Last administered on 01/27/19 09:02; Admin Dose 20 MG; Start 01/16/19 at 21:00 Aspirin (Aspirin) 325 mg DAILY PO Last administered on 01/27/19 09:04; Admin Dose 325 MG; Start 01/17/19 at 09:00 Acetaminophen (Tylenol Tab) 650 mg Q3H PRN PO ELEVATED TEMPERATURE Last administered on 01/24/19 20:19; Admin Dose 650 MG; Start 01/16/19 at 17:30 Potassium Chloride 50 ml @ 50 mls/hr SEE DIRECTION PRN IVPB K+ LEVEL Last administered on 01/17/19 09:51; Admin Dose 50 MLS/HR; Start 01/16/19 at 17:30 Magnesium Sulfate/ Dextrose 100 ml @ 100 mls/hr PRN PRN IVPB PENDING LAB VALUE; Start 01/16/19 at 17:30 Albumin Human 250 ml @ 250 mls/hr PRN PRN IV CVP <10 Last administered on 01/17/19at 22:36; Admin Dose 250 MLS/HR; Start 01/17/19 at 01:00 Morphine Sulfate (morphine) 2 mg Q4H PRN IV SEVERE PAIN LEVEL 7-10 Last administered on 01/20/19at 17:59; Admin Dose 2 MG; Start 01/18/19 at 16:00 Miscellaneous Information 1 ea NOTE XX ; Start 01/18/19 at 17:00 Glucose (Glutose) 15 gm Q15M PRN PO DECREASED GLUCOSE; Start 01/18/19 at 17:00 Glucose (Glutose) 22.5 gm Q15M PRN PO DECREASED GLUCOSE; Start 01/18/19 at 17:00 Dextrose (D50w Syringe) 25 ml Q15M PRN IV DECREASED GLUCOSE; Start 01/18/19 at 17:00 Dextrose (D50w Syringe) 50 ml Q15M PRN IV DECREASED GLUCOSE; Start 01/18/19 at 17:00 Glucagon (Glucagen) 1 mg Q15M PRN IM DECREASED GLUCOSE; Start 01/18/19 at 17:00 Glucose (Glutose) 15 gm Q15M PRN BUCCAL DECREASED GLUCOSE; Start 01/18/19 at 17:00 Levalbuterol (Xopenex Neb) 0.63 mg Q4H RESP THERAPY PRN HHN SHORTNESS OF BREATH Last administered on 01/19/19at 03:03; Admin Dose 0.63 MG; Start 01/19/19 at 02:30 Ipratropium [place] (Atrovent 0.02% (Neb)) 0.5 mg Q4H RESP THERAPY PRN HHN SHORTNESS OF BREATH Last administered on 01/19/19at 03:03; Admin Dose 0.5 MG; Start 01/19/19 at 02:30 Enoxaparin Sodium (Lovenox) 40 mg DAILY SC Last administered on 01/27/19 09:02; Admin Dose 40 MG; Start 01/19/19 at 09:00 Clopidogrel Bisulfate (plaVIX) 75 mg DAILY PO Last administered on 01/27/19at 09:02; Admin Dose 75 MG; Start 01/19/19 at 09:00 Diagnostic Test (Pha) (Accu-Chek) 1 ea 02 XX Last administered on 01/20/19at 02:39; Admin Dose 1 EA; Start 01/20/19 at 02:00 Insulin Aspart (Novolog Insulin Pen) NOVOLOG *MILD* ALGORITHM WITH MEALS BEDTIME SC Last administered on 01/26/19at 17:10; Admin Dose 1 UNIT; Start 01/19/19 at 21:00 Levofloxacin (Levaquin) 500 mg DAILY@06 PO Last administered on 01/27/19at 06:27; Admin Dose 500 MG; Start 01/24/19 at 06:00 Lisinopril (Zestril) 5 mg BID PO Last administered on 01/27/19at 13:52; Admin Dose 5 MG; Start 01/24/19 at 21:00 Metoprolol Tartrate (Lopressor) 12.5 mg BID PO Last administered on 01/27/19at 09:04; Admin Dose 12.5 MG; Start 01/24/19 at 21:00 NORMA PRINCE NP Jan 27, 2019 14:05
[2019-01-27] MEDS ORDERED: LEVO500T48 PO (14:09)
[2019-01-27] MEDS ORDERED: LISI-313 PO (14:09)
[2019-01-27] MEDS ORDERED: CLOP75TA28 PO (14:09)
[2019-01-27] MEDS ORDERED: METO-448 PO (14:09)
[2019-01-27] MEDS ORDERED: ASPI325T29 PO (14:09)
--- NOTE | 2019-01-27 14:12 | PDOCDIS ---
Discharge Instructions DIAGNOSIS Discharge Diagnosis 1. Non-ST elevation NM, status post left heart cath and now multivessel intervention with open heart surgery done January 16, 2019 2. Sepsis secondary to UTI- resolved 3. Bacteremia secondary to UTI- resolved 4. Urinary retention 5. H/o Prostate cancer 6. HTN 7. Cardiomyopathy CONDITION [id number] Patient Condition: [id number] Stable HOME CARE INSTRUCTIONS: [id number] Diet Instructions: [id number] Low Fat /Cholesterol FOLLOW UP/APPOINTMENTS Follow-up Plan 1. Follow up with your primary care physician in 1-2 weeks 2. Follow up with CT surgery in 1 week. please call the office to schedule an appointment 3. Follow up with your Urologist as previously scheduled 4. Continue taking all medications as prescribed 5. Use walker to assist with ambulation until you feel steady on your feet 6. You have one more dose of antibiotics to take tomorrow 01/28 7. If experiencing any concerning symptoms, please go to your nearest emergency department REFERRALS Other Referrals Bret Snow MD Specialty Cardiothoracic Surgery Comments Office Address [id number] [facility] [address] [place] [id number] Office MATY DE LA FUENTE MD Jan 27, 2019 14:12
--- NOTE | 2019-01-27 15:20 | DS ---
Date/Time of Note Date/Time of Note DATE: 01/27/19 TIME: 15:14 Discharge Summary Admission/Discharge Info Admit Date/Time Jan 15, 2019 at 01:24 Discharge Date/Time 01/27/19 Discharge Diagnosis 1. Non-ST elevation MS, status post left heart cath and now multivessel intervention with open heart surgery done January 16, 2019 2. Sepsis secondary to UTI- resolved 3. Bacteremia secondary to UTI- resolved 4. Urinary retention 5. H/o Prostate cancer 6. HTN 7. Cardiomyopathy Patient Condition: Stable Consults Cardiology- Dr. Lizarraga Ct Surgery- Dr. Snow Pulmonology- Dr. West Infectious disease- Dr. Armenta Procedures Date/Time of Note Date/Time of Note DATE: 01/16/19 TIME: 10:57 Operative Report Preoperative Diagnosis 1. chest pain 2.NSTEMI Postoperative Diagnosis 1.obstructive cad multivessel Operation/Procedure Performed 1.LHC 2.Insertion IABP DATE OF OPERATION: 01/16/2019 PREOPERATIVE DIAGNOSES: 1. Non-ST elevation myocardial infarction. 2. Three-vessel coronary artery disease. POSTOPERATIVE DIAGNOSES: 1. Non-ST elevation myocardial infarction. 2. Three-vessel coronary artery disease. Hx of Present Illness Chief complaint: Chest pain This is a 73-year-old male with a past medical history of hypertension, hyperlipidemia, prostate cancer who is presenting with chest pain and shortness of breath beginning a few hours ago. The patient endorses moderate left-sided pressure-like chest pain. He reports feeling short of breath as well. He is not diaphoretic. He is not lightheaded or dizzy. His shortness of breath was getting progressively worse, so an ambulance was called. The patient was reportedly oxygenating at 89% on room air and was started on a nonrebreather fac emask in route to the hospital. The patient also endorses having a fever with chills. He denies a cough. Patient arrived to the emergency department he also was noted to have a fever of 100.5 and he was tachycardic at 113. He reported that time that his chest pain resolved. He does report that he follows up by [facility] regarding his prostate cancer. He is currently on Lupron injections. He states that for the past 2 months he was with a chronic Galvez catheter which was just removed a few days ago. He does report urinary frequency. Allergies: NKDA Hospital Course Patient was admitted for cardiac workup and given worsening of chest pain and elevated troponins patient was taken to laboratory cureman by Cardiology. He was found to have three vessel disease and was evaluated by CT Surgery for intervention. Patient underwent CABG and transferred to ICU for close monitoring. Patient was septic and found with UTI bacteremia. Infectious disease was consulted and antibiotics were initiated and adjusted based on culture results. Patient was weaned off ventilator as well and pressor support. Patients medications were adjusted for optimal blood pressure and heart rate. Due to patients insurance, he was unable to be placed in ARU or SNF. Patient progressed well with physical therapy and was weaned off supplemental O2. He was discharged home in good condition with one visit from home health agency scheduled for safety and post hospital check. Home Meds Active Scripts Aspirin (Aspirin Lite-Coat) 325 Mg Tablet, 325 MG PO DAILY for 30 Days, #30 TAB 1 Refill Prov:MATY DE LA FUENTE MD 01/27/19 Clopidogrel Bisulfate (Clopidogrel) 75 Mg Tablet, 75 MG PO DAILY for 30 Days, #30 TAB 1 Refill Prov:MATY DE LA FUENTE MD 01/27/19 Levofloxacin* (Levaquin*) 500 Mg Tablet, 500 MG PO DAILY@06 for 1 Day, #1 TAB Prov:MATY DE LAF UENTE MD 01/27/19 Lisinopril* (Lisinopril*) 5 Mg Tablet, 5 MG PO BID for 30 Days, #60 TAB Prov:MATY DE LA FUENTE MD 01/27/19 Metoprolol Tartrate* (Lopressor*) 25 Mg Tab, 12.5 MG PO BID for 30 Days, #60 TAB Prov:MATY DE LA FUENTE MD 01/27/19 Sennosides/Docusate Sodium (Dok Plus Tablet) 1 Each Tablet, 2 TAB PO HS for 10 Days, #10 TAB 4 Refills Prov:ROMY ZAMORA MD 11/22/18 Acetaminophen* (Tylenol*) 325 Mg Tablet, 650 MG PO Q6H PRN for .PAIN 1-3 OR TEMP for 10 Days, TAB Prov:ROMY ZAMORA MD 11/22/18 Atorvastatin* (Atorvastatin*) 40 Mg Tablet, 40 MG PO HS for 30 Days, #30 TAB Prov:ROMY ZAMORA MD 11/22/18 Tamsulosin Hcl* (Flomax*) 0.4 Mg Cap.er.24h, 0.4 MG PO BID for 14 Days, #30 CAP Prov:ROMY ZAMORA MD 11/22/18 Bicalutamide* (Casodex*) 50 Mg Tablet, 50 MG PO DAILY for 14 Days, #15 TAB Prov:ROMY ZAMORA MD 11/22/18 Reported Medications Mirabegron (Myrbetriq) 50 Mg Tab.er.24h, 25 MG PO DAILY, TAB 11/18/18 Esomeprazole Mag Trihydrate (Nexium) 40 Mg Capsule., 40 MG PO DAILY, #30 CAP 11/18/18 Terazosin Hcl* (Terazosin Hcl*) 5 Mg Capsule, 5 MG PO HS, CAP 11/18/18 Fluticasone Propionate (Flonase Allergy Relief) 9.9 Ml Krebs.susp, 1 SPRAY NASAL DAILY, #1 BOTTLE TO EACH NOSTRIL 11/18/18 Amlodipine Besylate* (Amlodipine Besylate*) 10 Mg Tablet, 10 MG PO DAILY, #30 TAB 11/18/18 Discontinued Reported Medications Lisinopril* (Lisinopril*) 10 Mg Tablet, 10 MG PO BID, #30 TAB 11/18/18 Aspirin* (Aspirin* EC) 81 Mg Tablet., 81 MG PO DAILY, TAB 11/18/18 Follow-up Plan 1. Follow up with your primary care physician in 1-2 weeks 2. Follow up with CT surgery in 1 week. please call the office to schedule an appointment 3. Follow up with your Urologist as previously scheduled 4. Continue taking all medications as prescribed 5. Use walker to assist with ambulation until you feel steady on your feet 6. You have one more dose of antibiotics to take tomorrow 01/28 7. If experiencing any concerning symptoms, please go to your nearest emergency department Primary Care Provider Not On Staff Doctor Time spent on discharge: > 30 minutes Pending Labs Laboratory Tests Test 01/26/19 17:06 01/26/19 21:18 01/27/19 06:57 01/27/19 07:57 Bedside 149 135 116 Glucose mg/dL (70-220) mg/dL (70-220) mg/dL (70-220) White Blood 10.6 Count 10^3/ul (4.8-1 0.8) Red Blood 3.03 Count 10^6/ul (4.70- 6.10) Hemoglobin 8.9 g/dl (14.0-18. 0) Hematocrit 27.7 % (42.0-52.0) Mean 91.4 Corpuscular fl (82.0-101.0 Volume ) Mean 29.4 Corpuscular pg (29.0-33.0) Hemoglobin Mean 32.1 Corpuscular g/dl (32.0-37. Hemoglobin Conc 0) ent Red Cell 14.6 Distribution % (11.5-14.5) Width Platelet Count 330 10^3/UL (140-4 15) Mean Platelet 10.5 Volume fl (7.4-10.4) Immature 1.300 Granulocytes % % (0.001-0.429 ) Neutrophils % 65.1 % (39.0-77.0) Lymphocytes % 19.2 % (15.0-51.0) Monocytes % 9.3 % (0.0-11.0) Eosinophils % 4.6 % (0.0-7.0) Basophils % 0.5 % (0.0-2.0) Nucleated Red 0.0 Blood Cells % /100WBC (0.0-0 .0) Immature 0.140 Granulocytes # 10^3/ul (0.0-0 .031) Neutrophils # 6.9 10^3/ul (1.6-7 .5) Lymphocytes # 2.0 10^3/ul (0.8-2 .9) Monocytes # 1.0 10^3/ul (0.3-0 .9) Eosinophils # 0.5 10^3/ul (0.0-0 .5) Basophils # 0.1 10^3/ul (0.0-0 .1) Nucleated Red 0.0 Blood Cells # 10^3/ul (0.0-0 .0) Test 01/27/19 11:41 Bedside 102 Glucose mg/dL (70-220) MATY DE LA FUENTE MD Jan 27, 2019 15:20
--- NOTE | 2019-01-27 16:23 | CONS ---
Assessment/Plan Assessment/Plan Hospital Course (Demo Recall) IMPRESSION: 1. Non-ST myocardial infarction with up trending cardiac enzymes.-overnight and then this am patient with uptrending cardiac enzymes. Now s/p LHC with mutivessel CAD and enmergent echo with decreased EF 30-35%. Now post-op day #2 s/p cabg x 4(ENRIQUEZ-LAD, SVG-PDA, SVG-OM, SVG-Ramus) 2. Chest pain secondary to #1.-ongoing 3. Abnormal electrocardiogram with anterolateral deep ST depressions. 4. Hypertension-labile but currently reasonable 5. Dyslipidemia. 6. Benign prostatic hypertrophy. 7. Prostate carcinoma. 8. History of hematuria recently. 9. CHF-systolic acute. now improved volume status s/p cabg Recc: -Tele -Continue asa/statin/plavix -Continue BB/ACEI as tolerated -follow volume status closely with spot dosing of lasix as necessary -ok for d/c planning from cardiac standpoint with outpatient f/u Consultation Date/Type/Reason Admit Date/Time Jan 15, 2019 at 01:24 Initial Consult Date 01/15/19 Type of Consult Cardiology Reason for Consultation Nstemi Requesting Provider: NEFTALI LYNN Date/Time of Note DATE: 01/27/19 TIME: 16:21 Exam/Review of Systems Vital Signs Vitals Vital Signs Date Temp Pulse Resp B/P (MAP) Pulse Ox O2 O2 Flow FiO2 Time Delivery Rate 01/27/19 98.7 86 18 124/58 98 Room Air 15:55 (80) 01/27/19 2.0 08:45 Intake and Output 01/26/19 01/26/19 01/27/19 1515:00 23:00 07:00 IntakeIntake Total 300 ml OutputOutput Total 500 ml BalanceBalance -200 ml Exam Exam Review of Systems: CONSTITUTIONAL: No fevers, chills. PULMONARY: No sob CARDIOVASCULAR: No chest pain/palpitations GASTROINTESTINAL: No nausea/vomiting. GENITOURINARY: No hematuria/dysuria. MUSCULOSKELETAL: No myagias/arthalgias. PSYCHIATRIC: The patient denies depression. NEUROLOGIC: No weakness Constitutional: alert Psych: no complaints Head: normocephalic ENMT: mucosa pink and moist Neck: supple, jvd (9 cm water) Respiratory: clear to auscultation Cardiovascular: regular rate and rhythm Gastrointestinal: soft, non-tender Musculoskeletal: muscle tone (normal) Extremities: edema (none) Neurological: other (No focal deficits) Labs Result Diagram: 01/27/19 0657 01/24/19 0751 Results 24hrs Laboratory Tests Test 01/26/19 17:06 01/26/19 21:18 01/27/19 06:57 01/27/19 07:57 Bedside Glucose 149 135 116 White Blood Count 10.6 Red Blood Count 3.03 L Hemoglobin 8.9 L Hematocrit 27.7 L Mean Corpuscular 91.4 Volume Mean Corpuscular 29.4 Hemoglobin Mean Corpuscular 32.1 Hemoglobin Concent Red Cell 14.6 H Distribution Width Platelet Count 330 Mean Platelet Volume 10.5 H Immature 1.300 H Granulocytes % Neutrophils % 65.1 Lymphocytes % 19.2 Monocytes % 9.3 Eosinophils % 4.6 Basophils % 0.5 Nucleated Red Blood 0.0 Cells % Immature 0.140 H Granulocytes # Neutrophils # 6.9 Lymphocytes # 2.0 Monocytes # 1.0 H Eosinophils # 0.5 Basophils # 0.1 Nucleated Red Blood 0.0 Cells # Test 01/27/19 11:41 Bedside Glucose 102 Medications Medications Current Medications IV Flush (NS 3 ml) 3 ml PER PROTOCOL IV ; Start 01/15/19 at 01:30 Nitroglycerin (Nitroglycerin (Sl Tab) 0.4 Mg) 1 tab Q5M PRN SL .CHEST PAIN Last administered on 01/18/19at 23:22; Admin Dose 1 TAB; Start 01/15/19 at 01:30 Docusate Sodium (Colace) 100 mg Q12H PRN PO .CONSTIPATION; Start 01/15/19 at 01:30 Bisacodyl (Dulcolax) 5 mg DAILY PRN PO .CONSTIPATION Last administered on 01/24/19at 20:18; Admin Dose 5 MG; Start 01/15/19 at 01:30 Bicalutamide (Casodex) 50 mg DAILY PO Last administered on 01/27/19at 09:01; Admin Dose 50 MG; Start 01/16/19 at 09:00 Tamsulosin HCl (Flomax) 0.4 mg BID PO Last administered on 01/27/19at 09:04; Admin Dose 0.4 MG; Start 01/15/19 at 21:00 Terazosin HCl (Hytrin) 5 mg HS PO Last administered on 01/15/19at 20:43; Admin Dose 5 MG; Start 01/15/19 at 21:00; Status Hold Amlodipine Besylate (Norvasc) 10 mg DAILY PO ; Start 01/16/19 at 09:00; Status H old Atorvastatin Calcium (Lipitor) 40 mg HS PO Last administered on 01/26/19at 21:20; Admin Dose 40 MG; Start 01/15/19 at 21:00 Nitroglycerin (Nitroglycerin 2% Oint) 0.5 inch Q8 TD Last administered on 01/16/19at 01:23; Admin Dose 0.5 INCH; Start 01/16/19 at 01:00; Status Hold Oxycodone/ Acetaminophen (Percocet (5/ 325)) 1 tab Q4H PRN PO PAIN; Start 01/16/19 at 11:00 Al Hydrox/Mg Hydrox/Simethicone (Mag-Al Plus) 30 ml Q4H PRN PO GASTROINTESTINAL UPSET; Start 01/16/19 at 11:00 Oxycodone/ Acetaminophen (Percocet (5/ 325)) 1 tab Q3H PRN PO PAIN LEVEL 1-5; Start 01/16/19 at 17:30 Oxycodone/ Acetaminophen (Percocet (5/ 325)) 2 tab Q3H PRN PO PAIN LEVEL 6-10 Last administered on 01/21/19at 00:49; Admin Dose 2 TAB; Start 01/16/19 at 17:30 Ondansetron HCl (Zofran Inj) 4 mg Q6H PRN IV NAUSEA AND/OR VOMITING; Start 01/16/19 at 17:30 Famotidine (Pepcid) 20 mg BID PO Last administered on 01/27/19at 09:02; Admin Dose 20 MG; Start 01/16/19 at 21:00 Aspirin (Aspirin) 325 mg DAILY PO Last administered on 01/27/19at 09:04; Admin Dose 325 MG; Start 01/17/19 at 09:00 Acetaminophen (Tylenol Tab) 650 mg Q3H PRN PO ELEVATED TEMPERATURE Last administered on 01/24/19at 20:19; Admin Dose 650 MG; Start 01/16/19 at 17:30 Potassium Chloride 50 ml @ 50 mls/hr SEE DIRECTION PRN IVPB K+ LEVEL Last administered on 01/17/19at 09:51; Admin Dose 50 MLS/HR; Start 01/16/19 at 17:30 Magnesium Sulfate/ Dextrose 100 ml @ 100 mls/hr PRN PRN IVPB PENDING LAB VALUE; Start 01/16/19 at 17:30 Albumin Human 250 ml @ 250 mls/hr PRN PRN IV CVP <10 Last administered on 01/17/19at 22:36; Admin Dose 250 MLS/HR; Start 01/17/19 at 01:00 Morphine Sulfate (morphine) 2 mg Q4H PRN IV SEVERE PAIN LEVEL 7-10 Last administered on 01/20/19at 17:59; Admin Dose 2 MG; Start 01/18/19 at 16:00 Miscellaneous Information 1 ea NOTE XX ; Start 01/18/19 at 17:00 Glucose (Glutose) 15 gm Q15M PRN PO DECREASED GLUCOSE; Start 01/18/19 at 17:00 Glucose (Glutose) 22.5 gm Q15M PRN PO DECREASED GLUCOSE; Start 01/18/19 at 17:00 Dextrose (D50w Syringe) 25 ml Q15M PRN IV DECREASED GLUCOSE; Start 01/18/19 at 17:00 Dextrose (D50w Syringe) 50 ml Q15M PRN IV DECREASED GLUCOSE; Start 01/18/19 at 17:00 Glucagon (Glucagen) 1 mg Q15M PRN IM DECREASED GLUCOSE; Start 01/18/19 at 17:00 Glucose (Glutose) 15 gm Q15M PRN BUCCAL DECREASED GLUCOSE; Start 01/18/19 at 17:00 Levalbuterol (Xopenex Neb) 0.63 mg Q4H RESP THERAPY PRN HHN SHORTNESS OF BREATH Last administered on 01/19/19at 03:03; Admin Dose 0.63 MG; Start 01/19/19 at 02:30 Ipratropium [place] (Atrovent 0.02% (Neb)) 0.5 mg Q4H RESP THERAPY PRN HHN SHORTNESS OF BREATH Last administered on 01/19/19at 03:03; Admin Dose 0.5 MG; Start 01/19/19 at 02:30 Enoxaparin Sodium (Lovenox) 40 mg DAILY SC Last administered on 01/27/19at 09:02; Admin Dose 40 MG; Start 01/19/19 at 09:00 Clopidogrel Bisulfate (plaVIX) 75 mg DAILY PO Last administered on 01/27/19 09:02; Admin Dose 75 MG; Start 01/19/19 at 09:00 Diagnostic Test (Pha) (Accu-Chek) 1 ea 02 XX Last administered on 01/20/19 02:39; Admin Dose 1 EA; Start 01/20/19 at 02:00 Insulin Aspart (Novolog Insulin Pen) NOVOLOG *MILD* ALGORITHM WITH MEALS BEDTIME SC Last administered on 01/26/19 17:10; Admin Dose 1 UNIT; Start 01/19/19 at 21:00 Levofloxacin (Levaquin) 500 mg DAILY@06 PO Last administered on 01/27/19 06:27; Admin Dose 500 MG; Start 01/24/19 at 06:00 Lisinopril (Zestril) 5 mg BID PO Last administered on 01/27/19 13:52; Admin D ose 5 MG; Start 01/24/19 at 21:00 Metoprolol Tartrate (Lopressor) 12.5 mg BID PO Last administered on 01/27/19 09:04; Admin Dose 12.5 MG; Start 01/24/19 at 21:00 NEFTALI LYNN Jan 27, 2019 16:23
== END 2019-01-27 17:40 | disposition home health service (06) | DRG 233 ==
LOC: E/R 00:09 → TEL 01:24 → ICU 01-16 00:50 → TEL 01-21 03:25
PROVIDERS: ADMIT Family Medicine; ATTEND Internal Medicine
PROC: 5A02210 Assistance with Cardiac Output using Balloon Pump, Continuous (ICD-10-PCS; 2019-01-16)
PROC: 02100Z9 Bypass Coronary Artery, One Artery from Left Internal Mammary, Open Approach (ICD-10-PCS; 2019-01-16)
PROC: 06BQ4ZZ Excision of Left Saphenous Vein, Percutaneous Endoscopic Approach (ICD-10-PCS; 2019-01-16)
PROC: B211YZZ Fluoroscopy of Multiple Coronary Arteries using Other Contrast (ICD-10-PCS; 2019-01-16)
PROC: 5A1221Z Performance of Cardiac Output, Continuous (ICD-10-PCS; 2019-01-16)
PROC: 30233K1 Transfusion of Nonautologous Frozen Plasma into Peripheral Vein, Percutaneous Approach (ICD-10-PCS; 2019-01-16)
PROC: 30233N1 Transfusion of Nonautologous Red Blood Cells into Peripheral Vein, Percutaneous Approach (ICD-10-PCS; 2019-01-16)
PROC: 30233R1 Transfusion of Nonautologous Platelets into Peripheral Vein, Percutaneous Approach (ICD-10-PCS; 2019-01-16)
PROC: 021209W Bypass Coronary Artery, Three Arteries from Aorta with Autologous Venous Tissue, Open Approach (ICD-10-PCS; principal; 2019-01-16 09:30)
PROC: 4A023N7 Measurement of Cardiac Sampling and Pressure, Left Heart, Percutaneous Approach (ICD-10-PCS; 2019-01-16 09:30)
DX: I21.4 Non-ST elevation (NSTEMI) myocardial infarction (principal); I50.21 Acute systolic (congestive) heart failure; J96.01 Acute respiratory failure with hypoxia; R65.21 Severe sepsis with septic shock; A41.59 Other Gram-negative sepsis; N39.0 Urinary tract infection, site not specified; I25.810 Atherosclerosis of coronary artery bypass graft(s) without angina pectoris; D62 Acute posthemorrhagic anemia; I11.0 Hypertensive heart disease with heart failure; R33.9 Retention of urine, unspecified; E78.5 Hyperlipidemia, unspecified; C61 Malignant neoplasm of prostate; I25.5 Ischemic cardiomyopathy
CPT/HCPCS: 36415; 36430; 36592; 36600; 71045; 71250; 76604; 80048; 80053; 80202; 81001; 82550; 82553; 82803; 82962; 83036; 83605; 83735; 83880; 84100; 84443; 84484; 85025; 85610; 85730; 86644; 86850; 86900; 86901; 86920; 87070; 87081; 87086; 89220; 92526; 92610; 93005; 93308; 93312; 93458; 94003; 94664; 94770; 96374; 97110; 97116; 97162; 97530; A4310; C1887; J0171; J0690; J1170; J1265; J1335; J1644; J1650; J1815; J1940; J1956; J2001; J2185; J2250; J2260; J2270; J2370; J2440; J2720; J3010; J3370; J3475; J3480; J7030; J7040; J7050; J7070; P9016; P9035; P9045; P9047; P9059; Q9967